=== PATIENT | male | born 1945 | race Caucasian/White ===

== ENCOUNTER 2016-03-02 15:32 | Emergency (ER) | payer BC ==
[~2016-03-02] VITALS: Ht 177.8 cm; Wt 84.5 kg
[~2016-03-02 15:32] MED LIST changes: -ACET1TAB84 PO; -ASPCH81X PO; -ATOR-24 PO; -CHOL1000 PO; -CMD1 PO; -CMD2 PO; -CRDCD240 PO; -DILT-113 PO; -DILT-115 PO; -FLM4 PO; -HYDR-5688 PO; -LISI-461 PO; -LNX125 PO; -MAGN400T6 PO; -METO100T14 PO; -MGNO400 PO; -NTRGSL/4 UT; -ONDA4TAB10 SL; -OXYB5TAB PO; -OXYC1TAB3 PO; -PHEN-876 PO; -RIVA3CAP4 PO; -SULF800T23 PO; -TAMS0.4C38 PO; -TEST5GEL TOP
[2016-03-02 15:34] VITALS: TEMP 36.4; Ht 177.8 cm; Wt 84.5 kg
--- NOTE | 2016-03-02 17:00 | DIAGNOSTIC IMAGING REPORT ---
CT HEAD WITHOUT CONTRAST (CT) CLINICAL HISTORY: Change in mental status. Possible acute hemorrhage. COMPARISON STUDY: 02/12/2014 TECHNIQUE: Axial CT of the brain is performed from the vertex to the skull base. IV contrast was not administered for this examination. CT DOSE: 1036.18 mGy.cm FINDINGS: No intra or extra-axial mass lesions are visualized. There is no CT evidence of acute cortical infarction. There is no evidence of midline shift. There is no acute hemorrhage. No calvarial fractures are visualized. There are patchy white matter hypodensities likely on a small vessel basis. There is an old right frontal infarct. There is persistent mild ventricular dilatation. There is no evidence of acute sinusitis IMPRESSION: 1. No acute intracranial findings 2. Old right frontal infarct and extensive white matter hypodensities 3. Mild ventricular dilatation Electronically signed by: Rayshawn Jones M.D. 03/02/2016 4:58 PM Dictated Date/Time: 03/02/2016 4:56 PM
--- NOTE | 2016-03-02 17:07 | DIAGNOSTIC IMAGING REPORT ---
CERVICAL SPINE CT CT DOSE: HISTORY: Neck pain. TECHNIQUE: Multiaxial CT images of the cervical spine were performed and reformatted in the sagittal and coronal plane without the use of contrast. COMPARISON: Cervical spine CT 07/08/2011. FINDINGS: No fractures. No subluxation. Prevertebral soft tissues and the C1-C2 interval are intact. No pneumothorax. Calcified focal mild disc space at C4-C5 and C5-C6. There is a 9 mm irregular groundglass nodule within the left lung apex. Central disc protrusion at C4-C5. IMPRESSION: 1. No fractures within the cervical spine. 2. There is a 9 mm irregular groundglass nodule within left lung apex. This is highly suspicious for a primary bronchogenic malignancy. Follow-up pulmonary consultation and/or nonemergent chest CT in one to 2 months is recommended for further evaluation. Electronically signed by: Terrence Huizar M.D. 03/02/2016 5:05 PM Dictated Date/Time: 03/02/2016 4:56 PM
--- NOTE | 2016-03-02 17:20 | DIAGNOSTIC IMAGING REPORT ---
LEFT ELBOW MIN 3 VIEWS ROUTINE CLINICAL HISTORY: Left elbow pain status post trauma COMPARISON: None. DISCUSSION: The fat pads are not displaced. There is olecranon spurring. No acute fractures are visualized. There are mild osteoarthritic changes. There is no evidence for soft tissue swelling. IMPRESSION: Degenerative changes in the olecranon spurring. No acute fractures identified. Electronically signed by: Rayshawn Jones M.D. 03/02/2016 5:18 PM Dictated Date/Time: 03/02/2016 5:17 PM
--- NOTE | 2016-03-02 17:44 | DIAGNOSTIC IMAGING REPORT ---
CHEST 2 VIEWS ROUTINE CLINICAL HISTORY: Trauma. Pain. COMPARISON STUDY: 05/24/2015 FINDINGS: The heart remains mildly enlarged. There is no focal pulmonary consolidation. There is no failure. There are no pleural effusions.[ Degenerative changes are present within the spine. IMPRESSION: No active disease in the chest. Electronically signed by: Rayshawn Jones M.D. 03/02/2016 5:42 PM Dictated Date/Time: 03/02/2016 5:42 PM
[2016-03-02 18:13] VITALS: BP 127/73; PULSE 80; O2SAT 97
--- NOTE | 2016-03-02 21:23 | EMERGENCY ROOM VISIT NOTE ---
History Report prepared by Arina: Pal Brooks Under the Supervision of: Dr. Aden Chin M.D. First contact with patient: 16:32 Chief Complaint: FALL Stated Complaint: FELL, HIT HEAD, ELBOW, AND NECK, ON COUMADIN History of Present Illness The patient is a 70 year old male who presents to the Emergency Room after a fall that occurred prior to arrival. The patient was sitting in a chair pushing it back to get up when the leg of the chair got caught in the rug. The chair fell backwards and the patient fell to the ground as he was seated in the chair. He hit the back of his head, neck, and left elbow when he landed on the ground. He complains of neck pain and some discomfort in his left elbow. The patient notes that he wanted to get evaluated in the ED since he is on Coumadin. He denies fever, headache, back pain or hip pain at this time. Source of History: patient Onset: lpta Position: other (global) Quality: other (fall) Timing: resolved Associated Symptoms: + neck pain, No fevers, No headache, No numbness, No weakness Note: Other associated symptoms: discomfort in left elbow Denies: hip pain Review of Systems See HPI for pertinent positives & negatives. A total of 10 systems reviewed and were otherwise negative. 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 (5) Hyperlipidemia (6) Hypertension Surgical Problems: (1) S/P PTCA (percutaneous transluminal coronary angioplasty) (2) Total knee replacement status Family History No pertinent family history Social History Smoking Status: Never Smoker Alcohol Use: none Drug Use: none Marital Status: Occupation Status: retired Current/Historical Medications Scheduled Aspirin (Aspirin Chewable), 81 MG PO QAM Atorvastatin (Lipitor), 40 MG PO HS Cholecalciferol (Vitamin D3), 1 TAB PO HS Digoxin (Lanoxin), 0.25 MG PO QAM Lisinopril (Zestril), 10 MG PO QAM Metoprolol Tartrate (Lopressor) (Lopressor), 100 MG PO BID Nitroglycerin (Nitrostat), 0.4 MG UT PRN Rivastigmine Tartrate (Exelon), 3 MG PO QAM Testosterone (Androgel Pump), 40.5 MG TOP DAILY Warfarin Sod (Coumadin), 1 MG PO M.W.F Warfarin Sod (Coumadin), 2 MG PO SUN,,URIEL,SAT Scheduled PRN Acetaminophen (Tylenol Arthritis Ext Rel), 2 TAB PO DAILY PRN for Pain Allergies Coded Allergies: Adhesives (Verified Allergy, Intermediate, BLISTERS, 03/02/16) Alcohol (Verified Allergy, Unknown, RUBBING ALCOHOL MADE SHORTNESS OF BREATH, 03/02/16) NO KNOWN DRUG ALLERGIES (Verified Allergy, Unknown, ., 01/07/16) Physical Exam Vital Signs Date Time Temp Pulse Resp B/P Pulse Ox O2 Delivery O2 Flow Rate FiO2 03/02/16 18:13 80 18 127/73 97 03/02/16 17:42 80 16 145/77 97 Room Air 03/02/16 15:34 36.4 78 17 138/82 95 Room Air Physical Exam Constitutional: Vital signs reviewed. Eyes: Pupils are equal round reactive to light. Conjunctiva are noninjected. ENT: Pharynx is clear without erythema or exudate. Mucous membranes are moist. Neck supple without meningeal signs. No midline tenderness to the cervical spine. Respiratory: Clear to auscultation bilaterally. Breath sounds are equal bilaterally. Cardiovascular: Irregularly irregular rhythm. No rubs or gallops. GI: Soft, nondistended and nontender. Bowel sounds are present. Musculoskeletal: No deformity or tenderness to the left elbow. No hip tenderness. No midline tenderness to the thoracic or lumbosacral spine. Integumentary: No cyanosis. Neurologic: The patient is awake and alert. Cranial nerves II-XII are intact. Motor is 5 out of 5 all extremities. Sensation is intact to light touch all extremities. Normal speech. No pronator drift. Psychiatric: Normal affect. Medical Decision & Procedures ER Provider Diagnostic Interpretation: Other radiology results as stated below per my review and the radiologist's interpretation: CT HEAD WITHOUT CONTRAST (CT) CLINICAL HISTORY: Change in mental status. Possible acute hemorrhage. COMPARISON STUDY: 02/12/2014 TECHNIQUE: Axial CT of the brain is performed from the vertex to the skull base. IV contrast was not administered for this examination. CT DOSE: 1036.18 mGy.cm FINDINGS: No intra or extra-axial mass lesions are visualized. There is no CT evidence of acute cortical infarction. There is no evidence of midline shift. There is no acute hemorrhage. No calvarial fractures are visualized. There are patchy white matter hypodensities likely on a small vessel basis. There is an old right frontal infarct. There is persistent mild ventricular dilatation. There is no evidence of acute sinusitis IMPRESSION: 1. No acute intracranial findings 2. Old right frontal infarct and extensive white matter hypodensities 3. Mild ventricular dilatation Electronically signed by: Rayshawn Jones M.D. 03/02/2016 4:58 PM Dictated Date/Time: 03/02/2016 4:56 PM LEFT ELBOW MIN 3 VIEWS ROUTINE CLINICAL HISTORY: Left elbow pain status post trauma COMPARISON: None. DISCUSSION: The fat pads are not displaced. There is olecranon spurring. No acute fractures are visualized. There are mild osteoarthritic changes. There is no evidence for soft tissue swelling. IMPRESSION: Degenerative changes in the olecranon spurring. No acute fractures identified. Electronically signed by: Rayshawn Jones M.D. 03/02/2016 5:18 PM Dictated Date/Time: 03/02/2016 5:[address] DOSE: HISTORY: Neck pain. TECHNIQUE: Multiaxial CT images of the cervical spine were performed and reformatted in the sagittal and coronal plane without the use of contrast. COMPARISON: Cervical spine CT 07/08/2011. FINDINGS: No fractures. No subluxation. Prevertebral soft tissues and the C1-C2 interval are intact. No pneumothorax. Calcified focal mild disc space at C4-C5 and C5-C6. There is a 9 mm irregular groundglass nodule within the left lung apex. Central disc protrusion at C4-C5. IMPRESSION: 1. No fractures within the cervical spine. 2. There is a 9 mm irregular groundglass nodule within left lung apex. This is highly suspicious for a primary bronchogenic malignancy. Follow-up pulmonary consultation and/or nonemergent chest CT in one to 2 months is recommended for further evaluation. Electronically signed by: Terrence Huizar M.D. 03/02/2016 5:05 PM Dictated Date/Time: 03/02/2016 4:56 PM CHEST 2 VIEWS ROUTINE CLINICAL HISTORY: Trauma. Pain. COMPARISON STUDY: 05/24/2015 FINDINGS: The heart remains mildly enlarged. There is no focal pulmonary consolidation. There is no failure. There are no pleural effusions.[ Degenerative changes are present within the spine. IMPRESSION: No active disease in the chest. Electronically signed by: Rayshawn Jones M.D. 03/02/2016 5:42 PM Dictated Date/Time: 03/02/2016 5:42 PM ED Course 1630: The patient was evaluated in room A9. A complete history and physical exam was performed. 1730: Upon reevaluation, the patient appeared to have improvement of his symptoms. I discussed tonight's findings with him including the pulmonary nodules and stressed the need for follow-up. He verbalized agreement of the treatment plan. The patient was discharged home. Medical Decision This is a 70-year-old male who presents with increasing injuries after a fall on Coumadin. Differential diagnosis includes intracranial hemorrhage, skull fracture, contusion, concussion, cervical fracture. I did perform a limited focused review of portions of the patient's old chart on the electronic medical record. The patient had an INR of 2 on February 08 2016. I did evaluate the patient as noted above. He is neurologically intact. He did have a head and neck injury after falling. He is on Coumadin for A. fib. I I did order and personally review the patient's elbow x-ray as described above. There is no evidence of fracture. I did order a CT of the head and cervical spine. I did review the images myself as well as the radiology report as described above. He has no evidence of acute intracranial hemorrhage or cervical fracture. He did have some incidental findings including a left pulmonary nodule concerning for malignancy. I did discuss the test results in detail with the patient and his . I did recommend further evaluation and possible biopsy of the nodule. He will follow up with his doctor regarding this. He was discharged with head injury precautions. Impression Primary Impression: Acute head injury Additional Impressions: Fall Left elbow contusion Pulmonary nodule Anticoagulated on warfarin Scribe Attestation The scribe's documentation has been prepared under my direct and personally reviewed by me in its entirety. I confirm that the note above accurately reflects all work, treatment, procedures, and medical decision making performed by me. Departure Information Dispostion Home / Self-Care (ERASED) Referrals Cassius Decker M.D. (PCP) Forms HOME CARE DOCUMENTATION FORM, IMPORTANT VISIT INFORMATION Patient Instructions My [facility] Additional Instructions You have been examined and treated today on an emergency basis only. This is not a substitute for, or an effort to provide, complete comprehensive medical care. It is impossible to recognize and treat all injuries or illnesses in a single emergency department visit. It is therefore important that you follow up closely with your physician. Call as soon as possible for an appointment. Talk to him about further workup of your pulmonary nodule found on your CT scan. You may require a biopsy. Return for worsening symptoms or if you develop headache, numbness or weakness in your extremities, confusion, vomiting , or any other concerning symptoms. Problem Qualifiers
[2016-05-25] MEDS ORDERED: ATOR-24 PO (00:05)
[2016-05-25] MEDS ORDERED: NTRGSL/4 UT (00:05)
[2016-05-25] MEDS ORDERED: CMD2 PO (00:06)
[2016-05-25] MEDS ORDERED: CMD1 PO (00:06)
[2016-05-25] MEDS ORDERED: METO100T14 PO (10:05)
[2016-05-25] MEDS ORDERED: ASPCH81X PO (10:05)
[2016-05-25] MEDS ORDERED: RIVA3CAP4 PO (10:05)
[2016-05-25] MEDS ORDERED: ACET1TAB84 PO (10:05)
[2016-05-25] MEDS ORDERED: LISI-461 PO (13:26)
[2016-05-25] MEDS ORDERED: TEST5GEL TOP (13:26)
[2016-05-25] MEDS ORDERED: CHOL1000 PO (17:08)
[2016-05-27] MEDS ORDERED: SULF800T23 PO (09:55)
[2016-07-26] MEDS ORDERED: ONDA4TAB10 SL (14:28)
[2016-07-26] MEDS ORDERED: OXYC1TAB3 PO (14:28)
[2016-07-26] MEDS ORDERED: TAMS0.4C38 PO (14:28)
[2016-11-09] MEDS ORDERED: MAGN400T6 PO (08:53)
[2016-11-09] MEDS ORDERED: LNX125 PO (08:53)
[2016-11-09] MEDS ORDERED: TAMS0.4C38 PO (08:53)
[2016-11-09] MEDS ORDERED: DILT-115 PO (08:53)
[2016-11-09] MEDS ORDERED: LISI-461 PO (08:53)
[2016-11-17] MEDS ORDERED: ENOX80IN SQ (08:02)
[2016-11-17] MEDS ORDERED: OXYB5TAB PO (08:02)
[2016-11-17] MEDS ORDERED: PHEN-876 PO (08:02)
[2016-11-17] MEDS ORDERED: DILT-113 PO (08:32)
[2016-11-17] MEDS ORDERED: HYDR-5688 PO (10:47)
== END 2016-03-02 18:14 | disposition home or self-care (01) ==
LOC: C.EDB 15:34 → C.EDA 18:14
DX: S09.8XXA Other specified injuries of head, initial encounter (principal); S50.02XA Contusion of left elbow, initial encounter; R91.1 Solitary pulmonary nodule; Z79.01 Long term (current) use of anticoagulants; I48.91 Unspecified atrial fibrillation; Z86.73 Personal history of transient ischemic attack (TIA), and cerebral infarction without residual deficits; E78.5 Hyperlipidemia, unspecified; I25.10 Atherosclerotic heart disease of native coronary artery without angina pectoris; I10 Essential (primary) hypertension; Z96.659 Presence of unspecified artificial knee joint; Z79.82 Long term (current) use of aspirin; W07.XXXA Fall from chair, initial encounter; Y93.89 Activity, other specified; Y92.89 Other specified places as the place of occurrence of the external cause; Y99.8 Other external cause status

== ENCOUNTER → 2016-03-02 | Outpatient (CLI) | payer BC ==
[~2016-03-02] MED LIST: ACET1TAB84 PO; ASPCH81X PO; ATOR-24 PO; CEPH500C2 PO; CHOL1000 PO; CMD1 PO; CMD2 PO; CRDCD240 PO; DIGO0.2518 PO; DILT-113 PO; DILT-115 PO; ENOX80IN SQ; FLM4 PO; HYDR-5688 PO; LISI-461 PO; LNX125 PO; MAGN400T6 PO; METO100T14 PO; MGNO400 PO; NTRGSL/4 UT; ONDA4TAB10 SL; OXYB5TAB PO; OXYC-57 PO; OXYC1TAB3 PO; PHEN-876 PO; RIVA3CAP4 PO; SULF800T23 PO; TAMS0.4C38 PO; TEST5GEL TOP
--- NOTE | 2016-03-08 14:11 | CODING QUERY MEDICAL NECESSITY ---
SUPPORTING DIAGNOSIS NEEDED A supporting diagnosis is required for the test/procedure performed on this patient in order for us to be reimbursed by the patient's insurance. Please provide a supporting diagnosis for the following test/procedure listed below next to the test name along with your signature. *If there is no additional diagnosis for this patient that would support the following test/procedure please document that below next to the test/procedure. Test(s)/Procedure(s) that require a supporting diagnosis: * DXA BONE DENSITY DIAGNOSIS: * DOS: 03/02/16 Provider Signature: Date: Thank you Becky Martinez Health Information Management Once completed, please kindly fax back to [phone] For questions please call [phone]
== END | disposition home or self-care (01) ==
LOC: C.MAMM 13:05
PROVIDERS: ATTEND Internal Medicine Geriatric Medicine
DX: E29.1 Testicular hypofunction (principal); S09.8XXA Other specified injuries of head, initial encounter; S50.02XA Contusion of left elbow, initial encounter; W07.XXXA Fall from chair, initial encounter; Y93.89 Activity, other specified; Y92.89 Other specified places as the place of occurrence of the external cause; Y99.8 Other external cause status; R91.1 Solitary pulmonary nodule; Z79.01 Long term (current) use of anticoagulants; I48.91 Unspecified atrial fibrillation; Z86.73 Personal history of transient ischemic attack (TIA), and cerebral infarction without residual deficits; E78.5 Hyperlipidemia, unspecified; I25.10 Atherosclerotic heart disease of native coronary artery without angina pectoris; I10 Essential (primary) hypertension; Z96.659 Presence of unspecified artificial knee joint; Z79.82 Long term (current) use of aspirin; E55.9 Vitamin D deficiency, unspecified

== ENCOUNTER → 2016-03-16 | Outpatient (CLI) | payer BC ==
[~2016-03-16] MED LIST changes: +ACET1TAB84 PO; +ASPCH81X PO; +ATOR-24 PO; -CEPH500C2 PO; +CHOL1000 PO; +CMD1 PO; +CMD2 PO; +CRDCD240 PO; +DILT-113 PO; +DILT-115 PO; +FLM4 PO; +HYDR-5688 PO; +LISI-461 PO; +LNX125 PO; +MAGN400T6 PO; +METO100T14 PO; +MGNO400 PO; +NTRGSL/4 UT; +ONDA4TAB10 SL; +OXYB5TAB PO; -OXYC-57 PO; +OXYC1TAB3 PO; +PHEN-876 PO; +RIVA3CAP4 PO; +SULF800T23 PO; +TAMS0.4C38 PO; +TEST5GEL TOP
[2016-03-16 17:16] LABS: BLOOD UREA NITROGEN 14 mg/dl (7-18); BUN/CREATININE RATIO 16.1 (10-20); CALCIUM 9.4 mg/dl (8.5-10.1); CARBON DIOXIDE 28 mmol/L (21-32); CHLORIDE 105 mmol/L (98-107); CREATININE 0.85 mg/dl (0.60-1.40); GLUCOSE 85 mg/dl (70-99); SODIUM 141 mmol/L (136-145)
== END | disposition home or self-care (01) ==
LOC: C.LABBC 13:09
PROVIDERS: ATTEND Internal Medicine Pulmonary Disease
DX: G47.33 Obstructive sleep apnea (adult) (pediatric) (principal)

== ENCOUNTER → 2016-03-21 | Outpatient (CLI) | payer BC ==
[~2016-03-21] MED LIST changes: +OPTIRAY 320 IV PRN
--- NOTE | 2016-03-21 13:32 | DIAGNOSTIC IMAGING REPORT ---
CHEST CT WITH CONTRAST CT DOSE: 694.83 mGy.cm HISTORY: Lung nodule. Abnormal CT exam. R91.1 Solitary pulmonary [id number] TECHNIQUE: Multiaxial CT images of the chest were performed following the intravenous administration of contrast. COMPARISON: CT cervical spine dated 03/02/2016 FINDINGS: There is a 7.5 x 7.0 mm slightly spiculated nodular density left pulmonary apex. This appears similar to the patient's prior CT study. Lungs otherwise are clear. There is no additional nodular pathology. There is no significant mediastinal or hilar adenopathy. There is calcification of the coronary arterial vasculature. There is a 1 cm subcarinal node of indeterminate to low significance. Limited evaluation the upper abdomen shows presence of several nonobstructing renal cortical calcifications. The adrenal glands are unremarkable. IMPRESSION: 1. Spiculated nodule left pulmonary apex measuring 7.5 x 7.0 mm. 2. This is similar compared to the prior CT study of the cervical spine. 3. 1 cm subcarinal node with no evidence for additional or significant nodular/elif pathology. 4. Neoplastic process must be considered. Electronically signed by: Gopi Woods M.D. 03/21/2016 1:31 PM Dictated Date/Time: 03/21/2016 1:25 PM
== END | disposition home or self-care (01) ==
LOC: C.CTS 12:57
PROVIDERS: ATTEND Family Medicine
DX: G47.33 Obstructive sleep apnea (adult) (pediatric) (principal); R91.1 Solitary pulmonary nodule

== ENCOUNTER → 2016-04-18 | Outpatient (CLI) | payer BC ==
[~2016-04-18] MED LIST changes: -OPTIRAY 320 IV PRN
== END | disposition home or self-care (01) ==
LOC: C.PATHSPEC 13:41
PROVIDERS: ATTEND Dermatology
DX: D23.5 Other benign neoplasm of skin of trunk (principal); L57.0 Actinic keratosis

== ENCOUNTER 2016-05-25 22:31 | Inpatient (IN) | payer BC, OTHER ==
[~2016-05-25] VITALS: Ht 180.3 cm; Wt 86.5 kg
[~2016-05-25 22:31] MED LIST changes: -CRDCD240 PO; -DILT-113 PO; -DILT-115 PO; -ENOX80IN SQ; -FLM4 PO; -HYDR-5688 PO; -LNX125 PO; -MAGN400T6 PO; -MGNO400 PO; -ONDA4TAB10 SL; -OXYB5TAB PO; -OXYC1TAB3 PO; -PHEN-876 PO; -SULF800T23 PO; -TAMS0.4C38 PO
[2016-05-25] MEDS ORDERED: SODIUM CHLORIDE 0.9% 500ML 500 ML IV STA (22:59)
[2016-05-25] MEDS ORDERED: METOPROLOL TARTRATE 1 MG/ML VIAL IV STA ×2 (22:59→23:32)
--- NOTE | 2016-05-25 23:05 | EMERGENCY ROOM VISIT NOTE ---
History Report prepared by Arina: Luis Marie Under the Supervision of: Dr. Kam Keita M.D. First contact with patient: 22:54 Chief Complaint: TACHYCARDIA Stated Complaint: WEAKNESS/TACHYCARDIA History of Present Illness The patient is a 70 year old male with a history of atrial fibrillation who presents to the Emergency Room with complaints of persistent palpitations that started this morning. The patient has also had intermittent chest pain throughout the day and he has been feeling weak. He felt weak at physical therapy today, and notes that his weakness is worse when he sits up. He has a history of atrial fibrillation for which he has been in the ED before and is on Coumadin. The patient notes that he has abdominal pain that is unchanged from baseline. He denies syncope or shortness of breath. He also denies any recent falls. The patient has been eating okay. His notes that he missed his Metoprolol tonight. Per nursing staff, the patient had a fever of 100.3 upon arrival to the ED. She also notes that he has scratches over his legs that he attributes to his cat. Source of History: patient, spouse/significant other, nursing staff Onset: this morning Position: other (heart) Quality: other (palpitations) Timing: other (persistent) Associated Symptoms: + chest pain, + weakness, No LOC, No SOB, No abdominal pain (baseline) Review of Systems See HPI for pertinent positives & negatives. A total of 10 systems reviewed and were otherwise negative. Past Medical & Surgical Medical Problems: (1) Atrial fibrillation (2) CAD (coronary artery disease) (3) Cellulitis of right lower extremity without foot (4) CVA (cerebral infarction) (5) DJD (degenerative joint disease) of knee (6) Hyperlipidemia (7) Hypertension Surgical Problems: (1) S/P PTCA (percutaneous transluminal coronary angioplasty) (2) Total knee replacement status Family History No pertinent family history Social History Smoking Status: Never Smoker Alcohol Use: none Drug Use: none Marital Status: Occupation Status: retired Current/Historical Medications Scheduled Aspirin (Aspirin Chewable), 81 MG PO QAM Atorvastatin (Lipitor), 40 MG PO HS Cholecalciferol (Vitamin D3), 1 TAB PO HS Lisinopril (Zestril), 10 MG PO QAM Metoprolol Tartrate (Lopressor) (Lopressor), 100 MG PO BID Nitroglycerin (Nitrostat), 0.4 MG UT PRN Rivastigmine Tartrate (Exelon), 3 MG PO QAM Testosterone (Androgel Pump), 40.5 MG TOP DAILY Warfarin Sod (Coumadin), 1 MG PO M.W.F Warfarin Sod (Coumadin), 2 MG PO SUN,TU,URIEL,SAT Scheduled PRN Acetaminophen (Tylenol Arthritis Ext Rel), 2 TAB PO DAILY PRN for Pain Allergies Coded Allergies: Adhesives (Verified Allergy, Intermediate, BLISTERS, 03/02/16) Alcohol (Verified Allergy, Unknown, RUBBING ALCOHOL MADE SHORTNESS OF BREATH, 03/02/16) NO KNOWN DRUG ALLERGIES (Verified Allergy, Unknown, ., 01/07/16) Physical Exam Vital Signs Date Time Temp Pulse Resp B/P Pulse Ox O2 Delivery O2 Flow Rate FiO2 05/26/16 00:14 135 140/104 05/25/16 23:47 137 146/98 05/25/16 23:45 135 20 146/98 98 Room Air 05/25/16 23:09 143 05/25/16 22:48 Room Air 05/25/16 22:45 37.8 143 20 163/105 95 Room Air 05/25/16 22:39 140 Physical Exam GENERAL: Patient is unwell appearing and in mild distress. HEENT: No acute trauma, normocephalic atraumatic, mucous membranes moist, no nasal congestion, no scleral icterus. NECK: No stridor, no adenopathy, no meningismus, trachea is midline. LUNGS: No dyspnea. Clear to auscultation and equal bilaterally. No wheeze, no rhonchi. HEART: Tachycardic and irregular rhythm. No murmurs, rubs, gallops appreciated. ABDOMEN: Soft, nontender, bowel sounds positive, no masses appreciated, no peritonitis. BACK: No midline tenderness, no CVA tenderness EXTREMITIES: Normal motion all extremities, no cyanosis. Erythema and swelling of the right leg with multiple scratch ribera, erythema extends from top of right foot to the bottom of the right knee, no calf tenderness, no evidence of compartment syndrome. NEUROLOGIC: Alert and oriented, no acute motor or sensory deficits, no focal weakness, cranial nerves grossly intact. SKIN: No rash, no jaundice, no diaphoresis. Medical Decision & Procedures ER Provider Diagnostic Interpretation: X ray results are stated below per my interpretation: Chest: 1 view: Poor inspiratory effort, no obvious infiltrate nor effusion when compared to previous CXR. Radiology results and stated below per my review and radiologist interpretation: CT Abdomen & Pelvis: Nonobstructing calculi in both kidneys. No hydronephrosis or hydroureter. No radiopaque ureteral stone identified. Nonspecific hypodensities in the left kidney. Most are too small to definively characterize. Remainder of examination shows no definite evidence for an acute inflammatory process. Radiologist: Shun Herrera MD. Laboratory Results 05/25/16 22:53 Red Blood Count 4.46, Mean Corpuscular Volume 91.9, Mean Corpuscular Hemoglobin 31.6, Mean Corpuscular Hemoglobin Concent 34.4, Mean Platelet Volume 10.5, Neutrophils (%) (Auto) 79.1, Lymphocytes (%) (Auto) 11.9, Monocytes (%) (Auto) 7.3, Eosinophils (%) (Auto) 1.3, Basophils (%) (Auto) 0.3, Neutrophils # (Auto) 5.32, Lymphocytes # (Auto) 0.80, Monocytes # (Auto) 0.49, Eosinophils # (Auto) 0.09, Basophils # (Auto) 0.02 05/25/16 22:53 Test 05/25/16 22:53 05/25/16 22:59 05/25/16 23:19 White Blood Count 6.73 K/uL (4.8-10.8) Red Blood Count 4.46 M/uL (4.7-6.1) Hemoglobin 14.1 g/dL (14.0-18.0) Hematocrit 41.0 % (42-52) Mean Corpuscular Volume 91.9 fL (80-100) Mean Corpuscular Hemoglobin 31.6 pg (25-34) Mean Corpuscular Hemoglobin Concent 34.4 g/dl (32-36) Platelet Count 128 K/uL (130-400) Mean Platelet Volume 10.5 fL (7.4-10.4) Neutrophils (%) (Auto) 79.1 % Lymphocytes (%) (Auto) 11.9 % Monocytes (%) (Auto) 7.3 % Eosinophils (%) (Auto) 1.3 % Basophils (%) (Auto) 0.3 % Neutrophils # (Auto) 5.32 K/uL (1.4-6.5) Lymphocytes # (Auto) 0.80 K/uL (1.2-3.4) Monocytes # (Auto) 0.49 K/uL (0.11-0.59) Eosinophils # (Auto) 0.09 K/uL (0-0.5) Basophils # (Auto) 0.02 K/uL (0-0.2) RDW Standard Deviation 63.1 fL (36.4-46.3) RDW Coefficient of Variation 18.4 % (11.5-14.5) Immature Granulocyte % (Auto) 0.1 % Immature Granulocyte # (Auto) 0.01 K/uL (0.00-0.02) Prothrombin Time 20.7 SECONDS (9.0-12.0) Prothromb Time International Ratio 1.9 (0.9-1.1) Anion Gap 7.0 mmol/L (3-11) Est Creatinine Clear Calc Drug Dose 76.6 ml/min Estimated GFR () 95.5 Estimated GFR (Non- 82.4 BUN/Creatinine Ratio 22.3 (10-20) Calcium Level 9.1 mg/dl (8.5-10.1) Magnesium Level 1.9 mg/dl (1.8-2.4) Total Bilirubin 0.9 mg/dl (0.2-1) Direct Bilirubin 0.2 mg/dl (0-0.2) Aspartate Amino Transf (AST/SGOT) 22 U/L (15-37) Alanine Aminotransferase (ALT/SGPT) 24 U/L (12-78) Alkaline Phosphatase 124 U/L (45-117) Troponin I < 0.015 ng/ml (0-0.045) C-Reactive Protein 0.40 mg/dl (0-0.29) Total Protein 7.9 gm/dl (6.4-8.2) Albumin 4.0 gm/dl (3.4-5.0) Urine Color YELLOW Urine Appearance CLEAR (CLEAR) Urine pH 6.5 (4.5-7.5) Urine Specific [place] 1.016 (1.000-1.030) Urine Protein NEG (NEG) Urine Glucose (UA) NEG (NEG) Urine Ketones NEG (NEG) Urine Occult Blood 2+ (NEG) Urine Nitrite NEG (NEG) Urine Bilirubin NEG (NEG) Urine Urobilinogen POS (NEG) Urine Leukocyte Esterase NEG (NEG) Urine WBC (Auto) 0 /hpf (0-5) Urine RBC (Auto) >30 /hpf (0-4) Urine Hyaline Casts (Auto) 0 /lpf (0-5) Urine Epithelial Cells (Auto) 5-10 /lpf (0-5) Urine Bacteria (Auto) NEG (NEG) Bedside Lactic Acid Venous 1.33 mmol/L (0.90-1.70) Laboratory results as reviewed by me. Medications Administered Medications (Trade) Dose Ordered Sig/Mariaa Route Start Time Stop Time Status Last Admin Dose Admin Metoprolol Tartrate 5 mg 5 mg NOW STAT IV 05/25/16 22:59 05/25/16 23:00 DC 05/25/16 23:09 5 MG Sodium Chloride (Nss 500ml) 500 ml @ 999 mls/hr Q31M STAT IV 05/25/16 22:59 05/25/16 23:29 DC 05/25/16 23:09 999 MLS/HR Metoprolol Tartrate (Lopressor Iv) 5 mg NOW STAT IV 05/25/16 23:32 05/25/16 23:33 DC 05/25/16 23:47 5 MG Acetaminophen 1000 mg 1,000 mg NOW STAT PO 05/25/16 23:32 05/25/16 23:33 DC 05/25/16 23:47 1,000 MG Ampicillin Sodium/ Sulbactam Sodium 3000 mg/Sodium Chloride 108 ml @ 200 mls/hr ONE ONCE IV 05/25/16 23:45 05/26/16 00:17 DC 05/26/16 00:03 200 MLS/HR Sodium Chloride (Nss 1000ml) 1,000 ml @ 999 mls/hr Q1H1M STAT IV 05/26/16 00:05 05/26/16 01:05 DC 05/26/16 00:14 999 MLS/HR Metoprolol Tartrate (Lopressor Iv) 5 mg NOW STAT IV 05/26/16 00:05 05/26/16 00:06 DC 05/26/16 00:14 5 MG Metoprolol Tartrate (Lopressor Tab) 100 mg NOW STAT PO 05/26/16 00:48 05/26/16 01:07 DC 05/26/16 02:26 100 MG ECG Indication: palpitations Rate (beats per minute): 127 Rhythm: atrial fibrillation (with RVR) Findings: nonspecific-ST abn, other (no STEMI) ED Course 2253: The patient was evaluated in room C9. A complete history and physical exam was performed. 2259: NSS 500 ml @ 999 mls/hr, Lopressor 5 mg IV. 2315: The patient's heart rate is down to 122 after 5 mg Lopressor. 2330: The patient's rate is back up to the 130s, but he is feeling a little better. 2332: Tylenol 1000 mg PO, Lopressor 5 mg IV. 2345: Ampicillin Sodium / Sulbactam Sodium 3000 mg / NSS 108 ml @ 200 mls/hr. 2355: Discussed the case with Dr. Montez [facility]. The patient will be evaluated. 0005: Lopressor 5 mg IV, NSS 1000 ml @ 999 mls/hr. Medical Decision Differential: NSR, SVT, PACs, PVCs, Cardiac Dysrhythmia, Endocrine Dysfunction, Eletrolyte/Metabolic Abnormality, Pulmonary Embolism, Infectious, GI, amongst other pathologies entertained. 70 yr old male arrives with complaint of not feeling well with heart palpitations. On arrival in Afib RVR. History of Afib and admits not Metoprolol this evening. On exam also noted to have cellulitis right anterior thigh from cat scratches recently. Tachycardia likely afib related and mildly exacerbated by low grad fever/infection. CRP only minimal elevated and wbc/ lactate looks good thus I do not feel he is overtly septic. However with minimal improvement in HR was given some more fluids along with further dosing lopressor (total 3 doses given). Empiric Unasyn given source of infection. Hematuria without specific abdo pain (notes chronic pain with eating) thus after discussion with hospitalist they requested I order CT Abdo/pelv for further evaluation. Patient already on coumadin thus hold any further anti- coagulation. Without hypotension nor lactic acidosis nor other over septic shock findings I do not feel that patient requires full 30ml/kg fluid resus at this time. Consults Time Called: 2349 Consulting Physician: Dr. Montez [facility]. Returned Call: [phone]: Discuss[facility] the [facility] The patient will be evaluated. Impression Primary Impression: Atrial fibrillation with RVR Additional Impressions: Cellulitis of right lower extremity Hematuria Critical Care I have personally spent greater than 30 minutes of critical care time in the direct management of this patient. This was a life/limb threatening event. This includes time spent evaluating patient, direct bedside care, chart review, placing orders, interpretation of diagnostic studies, discussion with consultants, patient, and family members, as well as other required patient management activities. This 30 minutes is in excess of all separately billable procedures. Scribe Attestation The scribe's documentation has been prepared under my direction and personally reviewed by me in its entirety. I confirm that the note above accurately reflects all work, treatment, procedures, and medical decision making performed by me. Departure Information Dispostion Being Evaluated By Hospitalist Referrals Cassius Decker M.D. (PCP) Patient Instructions My [facility] Problem Qualifiers
[2016-05-25 23:12] LABS: BASO % 0.3 %; BASO ABS # 0.02 K/uL (0-0.2); COMPLETE YES; EOS % 1.3 %; IG% 0.1 %; LYMPH % 11.9 %; MEAN CELL VOLUME 91.9 fL (80-100); MEAN CORPUSCULAR HEMOGLOBIN 31.6 pg (25-34); MEAN CORPUSCULAR HGB CONC 34.4 g/dl (32-36); MEAN PLATELET VOLUME 10.5 fL (7.4-10.4); MONO % 7.3 %; NEUT % 79.1 %; PLATELET COUNT 128 K/uL (130-400); RED BLOOD COUNT 4.46 M/uL (4.7-6.1); WHITE BLOOD COUNT 6.73 K/uL (4.8-10.8)
[2016-05-25 23:25] LABS: URINE APPEARANCE CLEAR (CLEAR); URINE BILIRUBIN NEG (NEG); URINE COLOR YELLOW; URINE NITRITE NEG (NEG); URINE PH 6.5 (4.5-7.5); URINE SPECIFIC GRAVITY 1.016 (1.000-1.030); UROBILINOGEN POS (NEG); ZZUR CULT IF INDIC CLEAN CATCH NO
[2016-05-25 23:28] LABS: INR 1.9 (0.9-1.1); PROTHROMBIN TIME (PATIENT) 20.7 SECONDS (9.0-12.0)
[2016-05-25 23:30] LABS: MANUAL MICROSCOPIC REQUIRED? NO; REVIEW REQ? NO
[2016-05-25] MEDS ORDERED: ACETAMINOPHEN 500 MG TAB PO STA (23:32)
[2016-05-25 23:36] LABS: ALT/SGPT 24 U/L (12-78); BLOOD UREA NITROGEN 21 mg/dl (7-18); BUN/CREATININE RATIO 22.3 (10-20); CALCIUM 9.1 mg/dl (8.5-10.1); CARBON DIOXIDE 27 mmol/L (21-32); CHLORIDE 107 mmol/L (98-107); CREATININE 0.94 mg/dl (0.60-1.40); GLUCOSE 87 mg/dl (70-99); MAGNESIUM 1.9 mg/dl (1.8-2.4); POTASSIUM 4.3 mmol/L (3.5-5.1); SODIUM 141 mmol/L (136-145)
[2016-05-25 23:39] LABS: ALKALINE PHOSPHATASE 124 U/L (45-117); AST/SGOT 22 U/L (15-37)
[2016-05-25] MEDS ORDERED: AMPICILLIN/SULBACTAM SOD INJ 3,000 MG in SODIUM CHLORIDE 0.9% 100ML 100 ML IV ONE (23:45)
[2016-05-26] MEDS ORDERED: METOPROLOL TARTRATE 1 MG/ML VIAL IV STA (00:05)
[2016-05-26] MEDS ORDERED: SODIUM CHLORIDE 0.9% 1000ML 1,000 ML IV STA (00:05)
[2016-05-26] MEDS ORDERED: NITROGLYCERIN 0.4 MG SL PER TAB CHARGE UT SCH (00:15)
[2016-05-26] MEDS ORDERED: OPTIRAY 320 IV PRN (00:30)
[2016-05-26] MEDS ORDERED: VANCOMYCIN INJ 1,000 MG in SODIUM CHLORIDE 0.9% 250ML 250 ML IV STA (00:48)
[2016-05-26] MEDS ORDERED: METOPROLOL TARTRATE 50 MG TAB PO STA (00:48)
[2016-05-26] MEDS ORDERED: VANCOMYCIN INJ 2,150 MG in SODIUM CHLORIDE 0.9% 500ML 500 ML IV STA (01:08)
[2016-05-26] MEDS ORDERED: PIPERACILL/TAZOBAC CONSULT ACTIVE PRN ×3 (01:15→02:00)
[2016-05-26] MEDS ORDERED: PIPERACILL/TAZOBAC IV 3.375 GM in DEXTROSE 5% 100ML IV ONE (02:00)
[2016-05-26] MEDS: NSS + 20MEQ KCL 1000ML 1,000 ML IV SCH ×3 (02:26→20:26)
[2016-05-26 02:55] VITALS: BP 124/100; PULSE 147; TEMP 37.1; O2SAT 93; Ht 180.3 cm; Wt 86.5 kg
[2016-05-26 04:00] VITALS: BP 120/82; PULSE 103; TEMP 36.8; O2SAT 96
--- NOTE | 2016-05-26 05:08 | History and Physical ---
History & Physical Date & Time of Service: May 26, 2016 at 04:50 Chief Complaint: Atrial Fibrillation With Rvr, Cellulitis Of Right Primary Care Physician: Cassius Decker M.D. History of Present Illness Source: patient, spouse The patient is a 70-year-old male with a past history of atrial fibrillation who presents to the emergency department with complaint palpitations and weakness that began in the morning and intermittent chest pain throughout the day. His reports that he missed his metoprolol dose from 90. Nursing reports that it from 2.3 upon arrival to the ED tonight. He does have scratches over his right leg due to his 5 cats at home. He has been taking his Coumadin as directed for atrial fibrillation. Past Medical/Surgical History Medical Problems: (1) Atrial fibrillation Status: Chronic (2) CAD (coronary artery disease) Status: Chronic (3) CVA (cerebral infarction) Status: Chronic (4) DJD (degenerative joint disease) of knee Status: Resolved (5) Hyperlipidemia Status: Chronic (6) Hypertension Status: Chronic Surgical Problems: (1) S/P PTCA (percutaneous transluminal coronary angioplasty) Status: Chronic (2) Total knee replacement status Status: Chronic Family History No pertinent family history Social History Smoking Status: Former Smoker Smokeless Tobacco Use: No Alcohol Use: none Drug Use: none Marital Status: Housing status: lives with family Occupational Status: retired Immunizations History of Influenza Vaccine: Yes Influenza Vaccine Date: Jan 09, 2006 History of Tetanus Vaccine?: Yes History of Pneumococcal: Yes History of Hepatitis B Vaccine: No Multi-Drug Resistant Organisms History of MDRO: No Allergies Coded Allergies: Adhesives (Verified Allergy, Intermediate, BLISTERS, 03/02/16) Alcohol (Verified Allergy, Unknown, RUBBING ALCOHOL MADE SHORTNESS OF BREATH, 03/02/16) NO KNOWN DRUG ALLERGIES (Verified Allergy, Unknown, ., 01/07/16) Home Medications Scheduled Aspirin (Aspirin Chewable), 81 MG PO QAM Atorvastatin (Lipitor), 40 MG PO HS Cholecalciferol (Vitamin D3), 1 TAB PO HS Lisinopril (Zestril), 10 MG PO QAM Metoprolol Tartrate (Lopressor) (Lopressor), 100 MG PO BID Nitroglycerin (Nitrostat), 0.4 MG UT PRN Rivastigmine Tartrate (Exelon), 3 MG PO QAM Testosterone (Androgel Pump), 40.5 MG TOP DAILY Warfarin Sod (Coumadin), 1 MG PO M.W.F Warfarin Sod (Coumadin), 2 MG PO SUN,,SUN,SUN Scheduled PRN Acetaminophen (Tylenol Arthritis Ext Rel), 2 TAB PO DAILY PRN for Pain Review of Systems The patient denies cough, lower extremity swelling, vision change, hearing change, sore throat, fevers, chills, sweats, weight change, fatigue, nausea, vomiting, pelvic pain, blood in urine or stool, dysuria, urinary frequency or urgency, headache, memory loss, abnormal bruising or bleeding, imbalance, focal weakness, numbness or tingling in arms or legs, arthralgias or myalgias, back or neck pain, night sweats, or allergy symptoms. The review of systems is otherwise negative other than for that already noted above, and at least 10 systems have been reviewed. Physical Exam Vital Signs Date Time Temp Pulse Resp B/P Pulse Ox O2 Delivery O2 Flow Rate FiO2 05/26/16 04:00 36.8 103 18 120/82 96 Nasal Cannula 2.0 05/26/16 04:00 96 Nasal Cannula 2.0 05/26/16 02:55 37.1 147 24 124/100 93 Room Air 05/26/16 01:52 135 20 96 05/26/16 00:14 135 140/104 05/25/16 23:47 137 146/98 05/25/16 23:45 135 20 146/98 98 Room Air 05/25/16 23:09 143 05/25/16 22:48 Room Air 05/25/16 22:45 37.8 143 20 163/105 95 Room Air 05/25/16 22:39 140 The patient is awake, well-developed and adequately nourished, alert and oriented 3, normocephalic and atraumatic, lying in bed and in no acute distress. HEENT--PERRL, EOMI, mucous membranes and oropharynx dry. Neck--supple, no JVD or bruits, thyroid normal, trachea midline, no adenopathy. Heart--tachycardic, irregularly irregular, no murmurs, rubs or gallops. Lungs--clear bilaterally, no respiratory distress, no accessory muscle use. Abdomen--normal bowel sounds and soft, nontender and nondistended, no hernias or masses, no organomegaly. Extremities--left lower extremity no cyanosis, clubbing, with trace pretibial pitting edema. There are good distal pulses b/l. Right lower extremity 1+ pitting edema, mild erythema with multiple vertically oriented scratches on the tibial area. Dermatologic--normal skin turgor, warm and dry, no abnormal lymph nodes. Neurologic--cranial nerves II through XII grossly intact, motor and sensory examination normal. Rheumatologic--deferred. Psychiatric--normal affect. Diagnostics Laboratory Results Results Past 24 Hours Test 05/25/16 22:53 05/25/16 22:59 05/25/16 23:19 05/26/16 00:51 Range/Units White Blood Count 6.73 4.8-10.8 K/uL Red Blood Count 4.46 4.7-6.1 M/uL Hemoglobin 14.1 14.0-18.0 g/dL Hematocrit 41.0 42-52 % Mean Corpuscular Volume 91.9 80-100 fL Mean Corpuscular Hemoglobin 31.6 25-34 pg Mean Corpuscular Hemoglobin Concent 34.4 32-36 g/dl Platelet Count 128 130-400 K/uL Mean Platelet Volume 10.5 7.4-10.4 fL Neutrophils (%) (Auto) 79.1 % Lymphocytes (%) (Auto) 11.9 % Monocytes (%) (Auto) 7.3 % Eosinophils (%) (Auto) 1.3 % Basophils (%) (Auto) 0.3 % Neutrophils # (Auto) 5.32 1.4-6.5 K/uL Lymphocytes # (Auto) 0.80 1.2-3.4 K/uL Monocytes # (Auto) 0.49 0.11-0.59 K/uL Eosinophils # (Auto) 0.09 0-0.5 K/uL Basophils # (Auto) 0.02 0-0.2 K/uL RDW Standard Deviation 63.1 36.4-46.3 fL RDW Coefficient of Variation 18.4 11.5-14.5 % Immature Granulocyte % (Auto) 0.1 % Immature Granulocyte # (Auto) 0.01 0.00-0.02 K/uL Prothrombin Time 20.7 9.0-12.0 SECONDS Prothromb Time International Ratio 1.9 0.9-1.1 Sodium Level 141 136-145 mmol/L Potassium Level 4.3 3.5-5.1 mmol/L Chloride Level 107 98-107 mmol/L Carbon Dioxide Level 27 21-32 mmol/L Anion Gap 7.0 3-11 mmol/L Blood Urea Nitrogen 21 7-18 mg/dl Creatinine 0.94 0.60-1.40 mg/dl Est Creatinine Clear Calc Drug Dose 76.6 ml/min Estimated GFR () 95.5 Estimated GFR (Non- 82.4 BUN/Creatinine Ratio 22.3 10-20 Random Glucose 87 70-99 mg/dl Calcium Level 9.1 8.5-10.1 mg/dl Magnesium Level 1.9 1.8-2.4 mg/dl Total Bilirubin 0.9 0.2-1 mg/dl Direct Bilirubin 0.2 0-0.2 mg/dl Aspartate Amino Transf (AST/SGOT) 22 15-37 U/L Alanine Aminotransferase (ALT/SGPT) 24 12-78 U/L Alkaline Phosphatase 124 45-117 U/L Troponin I < 0.015 0-0.045 ng/ml C-Reactive Protein 0.40 0-0.29 mg/dl Total Protein 7.9 6.4-8.2 gm/dl Albumin 4.0 3.4-5.0 gm/dl Urine Color YELLOW Urine Appearance CLEAR CLEAR Urine pH 6.5 4.5-7.5 Urine Specific [place] 1.016 1.000-1.030 Urine Protein NEG NEG Urine Glucose (UA) NEG NEG Urine Ketones NEG NEG Urine Occult Blood 2+ NEG Urine Nitrite NEG NEG Urine Bilirubin NEG NEG Urine Urobilinogen POS NEG Urine Leukocyte Esterase NEG NEG Urine WBC (Auto) 0 0-5 /hpf Urine RBC (Auto) >30 0-4 /hpf Urine Hyaline Casts (Auto) 0 0-5 /lpf Urine Epithelial Cells (Auto) 5-10 0-5 /lpf Urine Bacteria (Auto) NEG NEG Bedside Lactic Acid Venous 1.33 0.90-1.70 mmol/L Creatine Kinase MB Ratio 0-3.0 Microbiology Results 05/25/16 Blood Culture, Received Pending 05/25/16 Blood Culture, Received Pending EKG EKG shows atrial fibrillation at 127 bpm, mild ST-T changes in lateral leads. Impression Assessment and Plan CAD/hypertension/atrial fibrillation with RVR--the patient be admitted to the telemetry unit for serial cardiac enzymes, cardiac rhythm monitoring and a 2-D echocardiogram with Dopplers. He has received 3 doses of IV Lopressor 5 mg without much change in his heart rate or blood pressure in the ED tonight. We' ll give the metoprolol 100 mg oral dose that he missed tonight. Hydrate with IV fluids, and treat the underlying right lower cellulitis which may be contributing to his hypermetabolic rate. We'll increase his metoprolol tartrate from 100 mg by mouth twice a day 20 mg by mouth twice a day, and hold lisinopril 10 mg by mouth every morning. Continue aspirin 81 mg by mouth every morning and warfarin. INR is presently 1.9. Right lower extremity cellulitis--placed on vancomycin IV per renal dosing, and Zosyn 3.375 mg IV every 8 hours. Hematuria--history of kidney stones. Order a CT of abdomen and pelvis for further assessment. Hypercholesterolemia--continue atorvastatin 40 mg by mouth at bedtime. Dementia--continue Exelon 3 mg by mouth every morning. Testosterone deficiency--continue AndroGel pump 40.5 mg topically daily. Level of Care Telemetry Advanced Directives Existing Advance Directive: No Existing Living Will: Yes Existing Power of Shift Superintendent: Yes Resuscitation Status FULL RESUSCITATION VTE Prophylaxis VTE Risk Assessment Done? Y/N: Yes Risk Level: Moderate Given or contraindicated: Warfarin (Coumadin)
[2016-05-26] MEDS: PIPERACILL/TAZOBAC IV 3.375 GM in DEXTROSE 5% 100ML IV SCH ×3 (05:51→20:26)
[2016-05-26] MEDS ORDERED: PIPERACILL/TAZOBAC IV 3.375 GM in DEXTROSE 5% 100ML 100 ML IV SCH (06:00)
--- NOTE | 2016-05-26 06:42 | DIAGNOSTIC IMAGING REPORT ---
CHEST ONE VIEW PORTABLE CLINICAL HISTORY: Fever. COMPARISON STUDY: Chest radiograph March 02, [address] March 21, 2016 FINDINGS: Lung volumes are normal. There is no pneumothorax or pleural effusion. Moderate cardiomegaly is unchanged. There is pulmonary vascular congestion without overt pulmonary edema. There is no consolidation to suggest pneumonia. IMPRESSION: Moderate cardiomegaly with pulmonary vascular congestion. No overt pulmonary edema. Electronically signed by: Tahir Sullivan M.D. 05/26/2016 6:40 AM Dictated Date/Time: 05/26/2016 6:39 AM
--- NOTE | 2016-05-26 06:49 | DIAGNOSTIC IMAGING REPORT ---
ABDOMEN AND PELVIS CT WITH IV CONTRAST CT DOSE: 631.23 mGy.cm HISTORY: Flank pain hematuria TECHNIQUE: Multiaxial CT images of the abdomen and pelvis were performed following the use of intravenous contrast. COMPARISON STUDY: 03/19/2013 FINDINGS: Lung bases are clear. Liver spleen and pancreas are unremarkable. Bilateral nonobstructing renal calcifications are present. There is no evidence for hydronephrosis or hydroureter. Bowel pattern is nonobstructive throughout. Appendix is unremarkable. IMPRESSION: 1. Nonobstructing renal calcifications bilaterally. 2. Otherwise negative abdomen and pelvis Electronically signed by: Gopi Woods M.D. 05/26/2016 6:47 AM Dictated Date/Time: 05/26/2016 6:45 AM
[2016-05-26 08:00] VITALS: BP 146/78; PULSE 103; O2SAT 99
[2016-05-26] MEDS: ASPIRIN 81 MG ECTAB PO SCH (08:13)
[2016-05-26] MEDS: RIVASTIGMINE TARTRATE (EXELON) 1.5 MG CAP PO SCH (08:13)
[2016-05-26] MEDS: METOPROLOL TARTRATE 100 MG TAB PO SCH ×2 (08:14→20:27)
[2016-05-26 09:33] LABS: CKMB/CK RATIO 1.8 (0-3.0)
[2016-05-26] MEDS ORDERED: VANCOMYCIN CONSULT ACTIVE PRN (11:00)
--- NOTE | 2016-05-26 12:00 | Pharmacy Progress Note ---
Pharmacy Antibiotic Consult Date of Service: May 26, 2016. Pharmacy Dosing Scope Pharmacy is consulted to initiate Vancomycin and Zosyn IV dosing therapy, order appropriate labs and adjust drug dose/frequency. Subjective The patient is a 70 year old male admitted on May 26, 2016 at 00:48 with Afib and Cellulitis of (R) lower leg (preceded by cat scratches) Objective Height (Feet): 5 Height (Inches): 11.00 Weight (Kilograms): 86.800 Lab Results (24hrs): Laboratory Tests Test 05/25/16 22:53 BUN/Creatinine Ratio 22.3 Blood Urea Nitrogen 21 mg/dl Creatinine 0.94 mg/dl White Blood Count 6.73 K/uL Red Blood Count 4.46 M/uL Hemoglobin 14.1 g/dL Hematocrit 41.0 % Mean Corpuscular Volume 91.9 fL Mean Corpuscular Hemoglobin 31.6 pg Mean Corpuscular Hemoglobin Concent 34.4 g/dl Platelet Count 128 K/uL Mean Platelet Volume 10.5 fL Neutrophils (%) (Auto) 79.1 % Lymphocytes (%) (Auto) 11.9 % Monocytes (%) (Auto) 7.3 % Eosinophils (%) (Auto) 1.3 % Basophils (%) (Auto) 0.3 % Neutrophils # (Auto) 5.32 K/uL Lymphocytes # (Auto) 0.80 K/uL Monocytes # (Auto) 0.49 K/uL Eosinophils # (Auto) 0.09 K/uL Basophils # (Auto) 0.02 K/uL Micro Results: Item Value Date Time MRSA DNA Surveillance Screen - Final Complete 05/26/16 0000 Nasal Specimen Negative for MRSA by DNA Probe Blood Culture Received 05/25/16 2314 Blood Pending Blood Culture Received 05/25/16 2253 Blood Pending Recent Pertinent Medications Item Value Date Time Piperacillin Sod/ 115 ml @ 28.75 mls/hr 05/26/16 0600 Tazobactam Sod Q8H/IV 05/26/16 0551 3.375 gm/Dextrose Assessment & Plan Loading dose: Vancomycin 2150mg (25mg/kg) IV X 1 dose then: Vancomycin 1300mg (~ 15mg/kg) IV every 12 hours. I estimated his half life at around 10 hours. I will check a trough level prior to 0400 dose on 05/28/16. Goal trough level estimate: between 15-20 mcg/mL. Pharmacy will continue to follow and will adjust dose/frequency as necessary. Thank you
[2016-05-26 16:00] VITALS: PULSE 90; O2SAT 97
[2016-05-26] MEDS ORDERED: WARFARIN SOD 1 MG TAB PO SCH (16:00)
[2016-05-26] MEDS: VANCOMYCIN INJ 1,300 MG in SODIUM CHLORIDE 0.9% 250ML 250 ML IV SCH (16:23)
[2016-05-26 17:42] LABS: CKMB/CK RATIO 1.7 (0-3.0)
[2016-05-26 17:55] VITALS: BP 114/65; PULSE 91; TEMP 37; O2SAT 91
[2016-05-26 19:04] VITALS: BP 147/95; PULSE 104; TEMP 36.6; O2SAT 97
[2016-05-26] MEDS ORDERED: CHOLECALCIFEROL 1000 INTER.UNIT TAB PO SCH (21:00)
[2016-05-26] MEDS ORDERED: ATORVASTATIN 20 MG TAB PO SCH (21:00)
[2016-05-27] VITALS: BP 140/101; PULSE 98; TEMP 36.8; O2SAT 97
[2016-05-27 04:00] VITALS: BP 147/97; PULSE 90; TEMP 36.8; O2SAT 97
[2016-05-27] MEDS: VANCOMYCIN INJ 1,300 MG in SODIUM CHLORIDE 0.9% 250ML 250 ML IV SCH (04:20)
[2016-05-27] MEDS: PIPERACILL/TAZOBAC IV 3.375 GM in DEXTROSE 5% 100ML IV SCH (06:35)
[2016-05-27 07:04] LABS: CREATININE 0.87 mg/dl (0.60-1.40)
[2016-05-27 08:38] VITALS: BP 140/95; PULSE 61; TEMP 36.3; O2SAT 92
[2016-05-27] MEDS: RIVASTIGMINE TARTRATE (EXELON) 1.5 MG CAP PO SCH (08:40)
[2016-05-27] MEDS: ASPIRIN 81 MG ECTAB PO SCH (08:40)
[2016-05-27] MEDS: METOPROLOL TARTRATE 100 MG TAB PO SCH (08:42)
[2016-05-27] MEDS ORDERED: MAGNESIUM OXIDE 400 MG TAB PO SCH (09:00)
[2016-05-27] MEDS ORDERED: SULF800T23 PO (09:55)
--- NOTE | 2016-05-27 09:56 | Discharge Instructions ---
Discharge Instructions Date of Service May 27, 2016. Admission Reason for Admission: Atrial Fibrillation With Rvr, Cellulitis Of Right Discharge Discharge Diagnosis / Problem: Cellulitis, sepsis Discharge Goals Goal(s): Decrease discomfort, Improve function, Increase independence, Improve disease control, Diagnostic testing, Therapeutic intervention Activity Recommendations Activity Limitations: resume your previous activity Shower/Bathe: no limitations . Instructions / Follow-Up Instructions / Follow-Up Patient to be discharged home Please fill prescription for antibiotic bactrim to take twice a day for skin infection (cellulitis) If worsening pain, fevers or redness please report to ER Current Hospital Diet Patient's current hospital diet: AHA Diet (Heart Healthy) Discharge Diet Recommended Diet: AHA Diet (Heart Healthy) Pending Studies Studies pending at discharge: no Medical Emergencies . Who to Call and When: Medical Emergencies: If at any time you feel your situation is an emergency, please call 911 immediately. . Non-Emergent Contact Non-Emergency issues call your: Primary Care Provider Call Non-Emergent contact if: you have a fever, your pain is worsening . . "Provider Documentation" section prepared by Gordon Villar. VTE Core Measure Inpt VTE Proph given/why not?: Warfarin (Coumadin)
--- NOTE | 2016-05-27 10:18 | Discharge Summary ---
Discharge Summary Date of Service May 27, 2016. Discharge Summary Admission Date: May 26, 2016 at 00:48 Discharge Date: May 27, 2016 Discharge Disposition: Home Principal Diagnosis: Cellulitis, sepsis Problems/Secondary Diagnoses: (1) CVA (cerebral infarction) Status: Chronic (2) S/P PTCA (percutaneous transluminal coronary angioplasty) Status: Chronic (3) Total knee replacement status Status: Chronic Immunizations: Have You Had Influenza Vaccine: Yes Influenza Vaccine Date: Jan 09, 2006 History of Tetanus Vaccine?: Yes History of Pneumococcal: Yes History of Hepatitis B Vaccine: No Medication Reconciliation New Medications: Sulfa/Trimethoprim (Bactrim Ds 800MG/160MG) Tab 1 TAB PO BID for 5 Days, #10 TAB Continued Medications: Acetaminophen (Tylenol Arthritis Ext Rel) 650 Mg Cplt 2 TAB PO DAILY PRN for Pain Aspirin (Aspirin Chewable) 81 Mg Chew 81 MG PO QAM Atorvastatin (Lipitor) 40 Mg Tab 40 MG PO HS, TAB Cholecalciferol (Vitamin D3) 1,000 Unit Tab 1 TAB PO HS, TAB 3 Refills Lisinopril (Zestril) 10 Mg Tab 10 MG PO QAM Metoprolol Tartrate (Lopressor) (Lopressor) 100 Mg Tab 100 MG PO BID, TAB Nitroglycerin (Nitrostat) 0.4 Mg Tab 0.4 MG UT PRN, BTL Rivastigmine Tartrate (Exelon) 3 Mg Cap 3 MG PO QAM, CAP Testosterone (Androgel Pump) 1.62 % Gel 40.5 MG TOP DAILY Warfarin Sod (Coumadin) 1 Mg Tab 1 MG PO M.W.F Warfarin Sod (Coumadin) 2 Mg Tab 2 MG PO SUN,TU,URIEL,SAT Discharge Exam Review of Systems: Constitutional: No chills, No fever Respiratory: No cough, No dyspnea on exertion, No shortness of breath, No sputum Cardiovascular: No chest pain, No orthopnea Abdomen: No diarrhea, No nausea, No pain, No vomiting Musculoskeletal: No joint pain, No muscle pain Genitourinary - Male: No dysuria, No hematuria Physical Exam: General Appearance: WD/WN, no apparent distress Neck: supple, no adenopathy Respiratory/Chest: lungs clear, normal breath sounds Cardiovascular: no edema, no gallop, + irregularly irregular Abdomen / GI: non tender, soft Neurologic/Psychiatric: alert, oriented x 3 Hospital Course CAD/hypertension/atrial fibrillation with RVR--the patient be admitted to the telemetry unit for serial cardiac enzymes which were unremarkable. RVR likely from sepsis. Cont metoprolol and hydrate with IV fluids, and treat the underlying right lower cellulitis which may be contributing to his hypermetabolic rate. Coumadin for AC, INR therapeutic Right lower extremity cellulitis--placed on vancomycin IV per renal dosing, and Zosyn 3.375 mg IV every 8 hours. Transitioned to 5 day course of bactrim on discharge Hematuria--history of kidney stones. Order a CT of abdomen and pelvis for further assessment. Hypercholesterolemia--continue atorvastatin 40 mg by mouth at bedtime. Dementia--continue Exelon 3 mg by mouth every morning. Testosterone deficiency--continue AndroGel pump 40.5 mg topically daily. Total Time Spent: Greater than 30 minutes This includes examination of the patient, discharge planning, medication reconciliation, and communication with other providers. Discharge Instructions Please refer to the electronic Patient Visit Report (Discharge Instructions) for additional information. Additional Copies To Cassius Decker M.D.
[2016-05-27] MEDS ORDERED: SULFAMETHOXAZOLE/TRIMETHOPRIM DS 800/160MG TAB PO SCH (10:30)
[2016-05-27 11:01] VITALS: BP 127/66; PULSE 76; TEMP 36.6; O2SAT 94
[2016-05-27 11:11] LABS: INR 1.7 (0.9-1.1); PROTHROMBIN TIME (PATIENT) 18.1 SECONDS (9.0-12.0)
[2016-05-27 11:37] VITALS: BP 127/66; PULSE 76; TEMP 36.6; O2SAT 94
[2016-05-27] MEDS ORDERED: WARFARIN SOD 2 MG TAB PO SCH (16:00)
[2016-05-28] MEDS ORDERED: VANCOMYCIN TROUGH SCH (03:30)
[2016-07-26] MEDS ORDERED: OXYC1TAB3 PO (14:28)
[2016-07-26] MEDS ORDERED: TAMS0.4C38 PO (14:28)
[2016-07-26] MEDS ORDERED: ONDA4TAB10 SL (14:28)
[2016-11-09] MEDS ORDERED: LNX125 PO (08:53)
[2016-11-09] MEDS ORDERED: MAGN400T6 PO (08:53)
[2016-11-09] MEDS ORDERED: TAMS0.4C38 PO (08:53)
[2016-11-09] MEDS ORDERED: LISI-461 PO (08:53)
[2016-11-09] MEDS ORDERED: DILT-115 PO (08:53)
[2016-11-17] MEDS ORDERED: OXYB5TAB PO (08:02)
[2016-11-17] MEDS ORDERED: PHEN-876 PO (08:02)
[2016-11-17] MEDS ORDERED: ENOX80IN SQ (08:02)
[2016-11-17] MEDS ORDERED: DILT-113 PO (08:32)
[2016-11-17] MEDS ORDERED: HYDR-5688 PO (10:47)
== END 2016-05-27 16:17 | disposition home or self-care (01) | DRG 603 ==
LOC: ENRESERVDT → ENRESERVTM → EDBD 22:31 → C.EDC 22:34 → C.MSICU 05-26 00:48 → C.2E 05-26 18:20
PROVIDERS: ADMIT Hospitalist; ATTEND Hospitalist
DX: L03.115 Cellulitis of right lower limb (principal); I48.91 Unspecified atrial fibrillation; I25.10 Atherosclerotic heart disease of native coronary artery without angina pectoris; I10 Essential (primary) hypertension; Z96.653 Presence of artificial knee joint, bilateral; R31.9 Hematuria, unspecified; F03.90 Unspecified dementia, unspecified severity, without behavioral disturbance, psychotic disturbance, mood disturbance, and anxiety; E29.1 Testicular hypofunction; Z86.73 Personal history of transient ischemic attack (TIA), and cerebral infarction without residual deficits; Z87.891 Personal history of nicotine dependence; Z79.82 Long term (current) use of aspirin; Z79.01 Long term (current) use of anticoagulants; E11.9 Type 2 diabetes mellitus without complications; E55.9 Vitamin D deficiency, unspecified; K76.0 Fatty (change of) liver, not elsewhere classified

== ENCOUNTER → 2016-05-25 | Outpatient (CLI) | payer BC ==
[2016-05-25 16:13] LABS: BASO ABS # 0.06 K/uL (0-0.2); COMPLETE YES; EOS % 4.4 %; HEMATOCRIT 43.6 % (42-52); IG% 0.2 %; LYMPH % 29.1 %; LYMPH ABS # 1.74 K/uL (1.2-3.4); MEAN CELL VOLUME 93.8 fL (80-100); MEAN CORPUSCULAR HEMOGLOBIN 30.8 pg (25-34); MEAN CORPUSCULAR HGB CONC 32.8 g/dl (32-36); MEAN PLATELET VOLUME 11.1 fL (7.4-10.4); MONO % 8.2 %; NEUT % 57.1 %; PLATELET COUNT 159 K/uL (130-400); RED BLOOD COUNT 4.65 M/uL (4.7-6.1); WHITE BLOOD COUNT 5.97 K/uL (4.8-10.8)
[2016-05-25 18:28] LABS: ALT/SGPT 25 U/L (12-78); AST/SGOT 15 U/L (15-37); BLOOD UREA NITROGEN 19 mg/dl (7-18); BUN/CREATININE RATIO 19.5 (10-20); CALCIUM 9.6 mg/dl (8.5-10.1); CARBON DIOXIDE 31 mmol/L (21-32); CHLORIDE 106 mmol/L (98-107); CREATININE 0.98 mg/dl (0.60-1.40); GLUCOSE 69 mg/dl (70-99); POTASSIUM 4.4 mmol/L (3.5-5.1); SODIUM 142 mmol/L (136-145)
[2016-05-25 18:33] LABS: ALKALINE PHOSPHATASE 120 U/L (45-117); PROSTATE SPECIFIC ANTIGEN 0.504 ng/ml (0.000-4.000)
== END | disposition home or self-care (01) ==
LOC: C.LABBC 10:48
PROVIDERS: ATTEND Internal Medicine Geriatric Medicine
DX: I10 Essential (primary) hypertension (principal); E29.1 Testicular hypofunction; E11.9 Type 2 diabetes mellitus without complications; E55.9 Vitamin D deficiency, unspecified; K76.0 Fatty (change of) liver, not elsewhere classified; I48.2 Chronic atrial fibrillation

== ENCOUNTER → 2016-08-09 | Outpatient (CLI) | payer BC ==
[~2016-08-09] MED LIST changes: -CMD1 PO; +CRDCD240 PO; -DIGO0.2518 PO; +DILT-113 PO; +DILT-115 PO; +ENOX80IN SQ; +FLM4 PO; +HYDR-5688 PO; +LNX125 PO; +MAGN400T6 PO; +MGNO400 PO; +OXYB5TAB PO; +PHEN-876 PO; +TAMS0.4C38 PO
--- NOTE | 2016-08-09 14:13 | DIAGNOSTIC IMAGING REPORT ---
KUB CLINICAL HISTORY: Ureteral stone. FINDINGS: An AP supine abdominal radiograph is compared to KUB and abdominal CT dated 07/26/2016. There is a nonobstructed abdominal bowel gas pattern noting moderate colonic fecal retention. There are numerous (less than 10) nonobstructing bilateral renal calculi. The largest stone is on the left and measures up to 8 mm. The obstructing right vesicoureteral junction stone seen on 07/26/2016 is no longer apparent. Scattered pelvic phleboliths are observed. The bony structures appear intact. IMPRESSION: 1. There are numerous bilateral nonobstructing renal calculi. 2. The right vesicoureteral junction stone seen on 07/26/2016 is no longer identified. Electronically signed by: Emile Neal M.D. 08/09/2016 2:12 PM Dictated Date/Time: 08/09/2016 2:09 PM
== END | disposition home or self-care (01) ==
LOC: C.RAD 13:28
PROVIDERS: ATTEND Urology
DX: N20.1 Calculus of ureter (principal)

== ENCOUNTER → 2016-08-29 | Outpatient (CLI) | payer BC ==
[2016-08-29 17:19] LABS: BASO ABS # 0.06 K/uL (0-0.2); COMPLETE YES; EOS % 2.9 %; HEMATOCRIT 43.6 % (42-52); IG% 0.2 %; LYMPH % 31.6 %; LYMPH ABS # 1.94 K/uL (1.2-3.4); MEAN CELL VOLUME 95.4 fL (80-100); MEAN CORPUSCULAR HEMOGLOBIN 31.3 pg (25-34); MEAN CORPUSCULAR HGB CONC 32.8 g/dl (32-36); MEAN PLATELET VOLUME 10.3 fL (7.4-10.4); MONO % 6.5 %; NEUT % 57.8 %; PLATELET COUNT 164 K/uL (130-400); RED BLOOD COUNT 4.57 M/uL (4.7-6.1); WHITE BLOOD COUNT 6.13 K/uL (4.8-10.8)
[2016-08-29 17:28] LABS: BLOOD UREA NITROGEN 18 mg/dl (7-18); BUN/CREATININE RATIO 19.1 (10-20); CALCIUM 9.6 mg/dl (8.5-10.1); CARBON DIOXIDE 29 mmol/L (21-32); CHLORIDE 104 mmol/L (98-107); CREATININE 0.94 mg/dl (0.60-1.40); GLUCOSE 79 mg/dl (70-99); POTASSIUM 4.7 mmol/L (3.5-5.1); SODIUM 138 mmol/L (136-145)
[2016-08-29 18:10] LABS: ESTIMATED AVERAGE GLUCOSE 128 mg/dl; HA1C FLAG Normal (Normal)
== END | disposition home or self-care (01) ==
LOC: C.LABBC 13:02
PROVIDERS: ATTEND Internal Medicine Geriatric Medicine
DX: I10 Essential (primary) hypertension (principal); I25.10 Atherosclerotic heart disease of native coronary artery without angina pectoris; E11.9 Type 2 diabetes mellitus without complications; I48.2 Chronic atrial fibrillation

== ENCOUNTER → 2016-10-19 | Outpatient (CLI) | payer BC ==
--- NOTE | 2016-10-19 19:27 | DIAGNOSTIC IMAGING REPORT ---
KUB CLINICAL HISTORY: 71 years-old Male presenting with N20.0 Nephrolithiasis. TECHNIQUE: Single supine view of the abdomen was obtained. COMPARISON: 08/09/2016. FINDINGS: Presence of gas and stool degrade evaluation of the renal shadows. Within this limitation, numerous left lower pole renal calculi again noted. Upper pole calculus on the left not as well visualized. Poor visualization of right renal calculi. No convincing evidence of calcification along the courses of the ureters. Nonobstructive bowel gas pattern. No gross free or intraperitoneal gas. Lung bases clear. Osseous structures normal. Possible atherosclerosis. IMPRESSION: 1. Bilateral nephrolithiasis. Evaluation limited due to stool burden. No convincing evidence of a calcification along the courses of the ureters. Electronically signed by: Hay Alvarado M.D. 10/19/2016 7:26 PM Dictated Date/Time: 10/19/2016 7:24 PM
== END | disposition home or self-care (01) ==
LOC: C.RAD 18:36
PROVIDERS: ATTEND Urology
DX: N20.0 Calculus of kidney (principal); R31.9 Hematuria, unspecified

== ENCOUNTER 2016-10-22 06:01 | Inpatient (IN) | payer BC, OTHER ==
[2016-10-22] VITALS (7 sets, daily range): BP systolic 106–151; BP diastolic 61–97; PULSE 105–152; TEMP 36.5–37.3; O2SAT 92–96; Ht 180.3 cm; Wt 87.0 kg
[~2016-10-22] VITALS: Ht 180.3 cm; Wt 87.0 kg
[~2016-10-22 06:01] MED LIST changes: -CRDCD240 PO; -DILT-113 PO; -DILT-115 PO; -ENOX80IN SQ; -FLM4 PO; -HYDR-5688 PO; -LISI-461 PO; -LNX125 PO; -MAGN400T6 PO; -MGNO400 PO; -OXYB5TAB PO; -PHEN-876 PO; -TAMS0.4C38 PO
[2016-10-22] MEDS ORDERED: ONDANSETRON INJ 2 MG/ML 2 ML VIAL IV STA (06:30)
[2016-10-22] MEDS ORDERED: SODIUM CHLORIDE 0.9% 500ML 500 ML IV STA (06:30)
[2016-10-22 06:48] LABS: BASO % 0.2 %; BASO ABS # 0.02 K/uL (0-0.2); COMPLETE YES; EOS % 0.5 %; HEMATOCRIT 43.7 % (42-52); IG% 0.2 %; LYMPH % 13.4 %; LYMPH ABS # 1.56 K/uL (1.2-3.4); MEAN CELL VOLUME 94.4 fL (80-100); MEAN CORPUSCULAR HEMOGLOBIN 31.5 pg (25-34); MEAN CORPUSCULAR HGB CONC 33.4 g/dl (32-36); MEAN PLATELET VOLUME 10.3 fL (7.4-10.4); MONO % 6.5 %; NEUT % 79.2 %; PLATELET COUNT 145 K/uL (130-400); RED BLOOD COUNT 4.63 M/uL (4.7-6.1); WHITE BLOOD COUNT 11.61 K/uL (4.8-10.8)
[2016-10-22 06:59] LABS: BUN/CREATININE RATIO 13.3 (10-20); CALCIUM 9.4 mg/dl (8.5-10.1); CREATININE 1.7 mg/dl (0.60-1.40); POTASSIUM 4.2 mmol/L (3.5-5.1)
[2016-10-22] MEDS ORDERED: MoRPHine SULFATE 10 MG/ML CARP/VIAL IV STA (07:38)
[2016-10-22] MEDS ORDERED: SODIUM CHLORIDE 0.9% 1000ML 1,000 ML IV STA (07:41)
--- NOTE | 2016-10-22 07:53 | DIAGNOSTIC IMAGING REPORT ---
RENAL ULTRASOUND CLINICAL HISTORY: Left flank pain. COMPARISON STUDY: CT of the abdomen and pelvis July 26, 2016 and KUB October 19, 2016. TECHNIQUE: Sonography of the kidneys and the urinary bladder was performed. FINDINGS: Bilateral renal calculi are noted. These measure up to approximately 1 cm. There is mild left hydronephrosis. There is no right hydronephrosis. Both ureteral jets were identified. Several left renal cysts were noted. IMPRESSION: 1. Mild left hydronephrosis. No ureteral calculi identified although these are often occult by sonography. 2. Extensive bilateral nephrolithiasis. 3. Both ureteral jets identified. Electronically signed by: Tahir Sullivan M.D. 10/22/2016 7:52 AM Dictated Date/Time: 10/22/2016 7:49 AM
[2016-10-22 08:29] LABS: URINE APPEARANCE CLEAR (CLEAR); URINE BILIRUBIN NEG (NEG); URINE COLOR YELLOW; URINE EPITHELIAL CELL AUTO 20-30 /lpf (0-5); URINE NITRITE NEG (NEG); URINE PH 5.5 (4.5-7.5); URINE SPECIFIC GRAVITY 1.021 (1.000-1.030); UROBILINOGEN NEG (NEG); ZZUR CULT IF INDIC CLEAN CATCH NO
[2016-10-22 08:31] LABS: MANUAL MICROSCOPIC REQUIRED? NO; REVIEW REQ? NO
[2016-10-22] MEDS ORDERED: MAGNESIUM HYDROXIDE SUSP 30 ML UDC PO PRN (09:15)
[2016-10-22] MEDS ORDERED: POLYETHYLENE (MIRALAX) 17 GM PACK PO PRN (09:15)
[2016-10-22] MEDS ORDERED: ACETAMINOPHEN PO PRN (09:15)
[2016-10-22] MEDS ORDERED: NITROGLYCERIN 0.4 MG SL PER TAB CHARGE UT SCH (09:15)
[2016-10-22] MEDS ORDERED: ONDANSETRON INJ 2 MG/ML 2 ML VIAL IV PRN (09:15)
[2016-10-22 10:07] LABS: PROTHROMBIN TIME (PATIENT) 54.5 SECONDS (9.0-12.0)
--- NOTE | 2016-10-22 10:22 | History and Physical ---
History & Physical Date & Time of Service: Oct 22, 2016 at 09:23 Chief Complaint: Kidney Stones- Pain,Nausea Primary Care Physician: Cassius Decker M.D. History of Present Illness Source: patient, family Patient is a 71 yo male with history of Afib with RVR, dementia, HTN, hyperlipidemia, chronic Coumadin therapy, CAD with history of NV in 2003, hx stroke 2010, and bilateral nephrolithiasis following by Dr. Ross as an outpatient. The patient states that he began to experience left-sided abdominal and back pain last week. He was evaluated by his urologist and had a KUB completed. KUB on 10/19 showed bilateral nephrolithiasis, but limited evaluation due to stool burden. No calcification was noted along the ureters at the time. The patient took Advil at home with minimal relief. He states that his fluid consumption has been low at home, and he typically drinks coffee and lemonade. His appetite has been decreased. He does note some chills yesterday, but denies sweats/fevers at home. He was experiencing some hematuria last week, and on urinalysis he is noted to have 2+ occult blood, 1+ ketones, & 10-30 RBCs. The patient's Creatinine usually is around 1, and is 1.70 today. BUN is slightly elevated at 23. WBC count was 11.61 on labs this morning, and Hgb/Hct was stable at 14.6/43.7. Patient had INR checked as an outpatient on 10/19 which was 2.7. Urine culture from 10/19 was negative. Renal U/S today shows mild left hydronephrosis, no ureteral calculi seen within the ability of this imaging study, extensive bilateral nephrolithiasis, and ureteral jets were identified. Patient was also experiencing nausea and vomiting prior to admission. He was given Morphine, NSS, and Zofran in the ED. He is feeling slightly improved. He did already pass a stone since presentation to the ED. Stone was sent for analysis. Past Medical/Surgical History Medical Problems: (1) Atrial fibrillation Status: Chronic (2) CAD (coronary artery disease) Status: Chronic (3) CVA (cerebral infarction) Status: Chronic (4) DJD (degenerative joint disease) of knee Status: Resolved (5) Hyperlipidemia Status: Chronic (6) Hypertension Status: Chronic (7) Dementia (8) Nephrolithiasis, B/L (9) Hx Stroke 2010 (10) Hx NV 2003 Surgical Problems: (1) S/P PTCA (percutaneous transluminal coronary angioplasty) Status: Chronic (2) Total knee replacement status Status: Chronic Family History No pertinent family history Social History Smoking Status: Former Smoker Drug Use: none Marital Status: Housing status: lives with family Occupational Status: retired Immunizations History of Influenza Vaccine: Yes Influenza Vaccine Date: Jan 09, 2006 History of Tetanus Vaccine?: Yes History of Pneumococcal: Yes History of Hepatitis B Vaccine: No Multi-Drug Resistant Organisms History of MDRO: No Allergies Coded Allergies: Adhesives (Verified Allergy, Intermediate, BLISTERS, 07/26/16) Alcohol (Verified Allergy, Unknown, RUBBING ALCOHOL MADE SHORTNESS OF BREATH, 07/26/16) NO KNOWN DRUG ALLERGIES (Verified Allergy, Unknown, ., 07/26/16) Home Medications Scheduled Aspirin (Aspirin Chewable), 81 MG PO QAM Atorvastatin (Lipitor), 40 MG PO HS Cholecalciferol (Vitamin D3), 1,000 UNITS PO HS Metoprolol Tartrate (Lopressor) (Lopressor), 100 MG PO BID Nitroglycerin (Nitrostat), 0.4 MG UT PRN Rivastigmine Tartrate (Exelon), 3 MG PO QAM Testosterone (Androgel Pump), 40.5 MG TOP DAILY Warfarin Sod (Coumadin), 2 MG PO DAILY Scheduled PRN Acetaminophen (Tylenol Arthritis Ext Rel), 2 TAB PO DAILY PRN for Pain Review of Systems Constitutional: + chills, No fever, No sweats, No weakness Eyes: No worsening of vision ENT: No hearing loss Respiratory: + cough (chronic) Cardiovascular: No chest pain, No edema Abdomen: + pain (left-sided, radiates into back and left groin) Musculoskeletal: No joint pain, No muscle pain Genitourinary - Male: + hematuria (at home), + dysuria, No urinary frequency Neurologic: No weakness, No numbness/tingling Integumentary: No rash, No itch Physical Exam Vital Signs Date Time Temp Pulse Resp B/P (MAP) Pulse Ox O2 Delivery O2 Flow Rate FiO2 10/22/16 08:33 108 20 166/115 95 10/22/16 08:15 96 Room Air 10/22/16 07:08 110 18 161/100 96 Room Air 10/22/16 06:07 36.4 117 20 163/92 93 Room Air General Appearance: WD/WN, no apparent distress Head: normocephalic, atraumatic Eyes: normal inspection, sclerae normal ENT: hearing grossly normal Neck: supple, trachea midline Respiratory/Chest: chest non-tender, lungs clear, normal breath sounds, no respiratory distress, no accessory muscle use Cardiovascular: + tachycardia, + irregularly irregular Abdomen/GI: normal bowel sounds, soft, + tenderness (suprapubic) Back: normal inspection Extremities/Musculoskelatal: normal inspection, + pertinent finding (mild antereior tibial edema b/l LE) Neurologic/Psych: alert, normal mood/affect Skin: normal color, warm/dry, no rash VS upon presentation: T: 36.4 C HR 117 RR 20 BP 163/92 SaO2 93% on room air Diagnostics Laboratory Results Results Past 24 Hours Test 10/22/16 06:25 10/22/16 08:00 Range/Units White Blood Count 11.61 4.8-10.8 K/uL Red Blood Count 4.63 4.7-6.1 M/uL Hemoglobin 14.6 14.0-18.0 g/dL Hematocrit 43.7 42-52 % Mean Corpuscular Volume 94.4 80-100 fL Mean Corpuscular Hemoglobin 31.5 25-34 pg Mean Corpuscular Hemoglobin Concent 33.4 32-36 g/dl Platelet Count 145 130-400 K/uL Mean Platelet Volume 10.3 7.4-10.4 fL Neutrophils (%) (Auto) 79.2 % Lymphocytes (%) (Auto) 13.4 % Monocytes (%) (Auto) 6.5 % Eosinophils (%) (Auto) 0.5 % Basophils (%) (Auto) 0.2 % Neutrophils # (Auto) 9.20 1.4-6.5 K/uL Lymphocytes # (Auto) 1.56 1.2-3.4 K/uL Monocytes # (Auto) 0.75 0.11-0.59 K/uL Eosinophils # (Auto) 0.06 0-0.5 K/uL Basophils # (Auto) 0.02 0-0.2 K/uL RDW Standard Deviation 50.1 36.4-46.3 fL RDW Coefficient of Variation 14.6 11.5-14.5 % Immature Granulocyte % (Auto) 0.2 % Immature Granulocyte # (Auto) 0.02 0.00-0.02 K/uL Sodium Level 134 136-145 mmol/L Potassium Level 4.2 3.5-5.1 mmol/L Chloride Level 99 98-107 mmol/L Carbon Dioxide Level 27 21-32 mmol/L Anion Gap 8.0 3-11 mmol/L Blood Urea Nitrogen 23 7-18 mg/dl Creatinine 1.70 0.60-1.40 mg/dl Est Creatinine Clear Calc Drug Dose 46.5 ml/min Estimated GFR () 46.3 Estimated GFR (Non- 40.0 BUN/Creatinine Ratio 13.3 10-20 Random Glucose 111 70-99 mg/dl Calcium Level 9.4 8.5-10.1 mg/dl Total Bilirubin 1.6 0.2-1 mg/dl Direct Bilirubin 0.5 0-0.2 mg/dl Aspartate Amino Transf (AST/SGOT) 22 15-37 U/L Alanine Aminotransferase (ALT/SGPT) 20 12-78 U/L Alkaline Phosphatase 121 45-117 U/L Total Protein 8.2 6.4-8.2 gm/dl Albumin 4.0 3.4-5.0 gm/dl Lipase 228 73-393 U/L Urine Color YELLOW Urine Appearance CLEAR CLEAR Urine pH 5.5 4.5-7.5 Urine Specific [place] 1.021 1.000-1.030 Urine Protein 2+ NEG Urine Glucose (UA) NEG NEG Urine Ketones 1+ NEG Urine Occult Blood 2+ NEG Urine Nitrite NEG NEG Urine Bilirubin NEG NEG Urine Urobilinogen NEG NEG Urine Leukocyte Esterase NEG NEG Urine WBC (Auto) 1-5 0-5 /hpf Urine RBC (Auto) 10-30 0-4 /hpf Urine Hyaline Casts (Auto) 1-5 0-5 /lpf Urine Epithelial Cells (Auto) 20-30 0-5 /lpf Urine Bacteria (Auto) NEG NEG Diagnostic Radiology RENAL ULTRASOUND CLINICAL HISTORY: Left flank pain. COMPARISON STUDY: CT of the abdomen and pelvis July 26, 2016 and KUB October 19, 2016. TECHNIQUE: Sonography of the kidneys and the urinary bladder was performed. FINDINGS: Bilateral renal calculi are noted. These measure up to approximately 1 cm. There is mild left hydronephrosis. There is no right hydronephrosis. Both ureteral jets were identified. Several left renal cysts were noted. IMPRESSION: 1. Mild left hydronephrosis. No ureteral calculi identified although these are often occult by sonography. 2. Extensive bilateral nephrolithiasis. 3. Both ureteral jets identified. Impression Assessment and Plan Bilateral nephrolithiasis, probable ureteral stone with passage in ED, left- sided hydronephrosis -Continue NSS -Continue to strain urine- seems likely that patient passed stone in ED. Stone sent for analysis -Monitor BUN/Creatinine. Will recheck BMP in AM Abdominal pain secondary to renal stone -Passed stone- continues to have on and off left-sided pain -Continue Morphine 2 mg Q 2h prn severe pain, Tylenol PRN mild/moderate pain Nausea -Continue Zofran PRN History of chronic Afib, stroke, NV -Continue Coumadin, SCD's -Check INR now, recheck in AM -Nitro PRN chest pain Hypertension -Continue at home Metoprolol Hyperlipidemia -Continue Atorvastatin Level of Care Med/Surg Advanced Directives Existing Living Will: Yes Existing Power of Respiratory Therapist Assistant: Yes VTE Prophylaxis VTE Risk Assessment Done? Y/N: Yes Risk Level: Moderate (Patient on chronic Coumadin therapy- hx stroke, hx NV, chornic Afib) Given or contraindicated: Warfarin (Coumadin), SCD's
[2016-10-22 10:25] LABS: INR 4.8 (0.9-1.1)
[2016-10-22] MEDS ORDERED: IV FLUIDS COMPLETED PRN (10:30)
[2016-10-22] MEDS: SODIUM CHLORIDE 0.9% 1000ML 1,000 ML IV SCH ×2 (11:28→19:56)
--- NOTE | 2016-10-22 14:08 | EMERGENCY ROOM VISIT NOTE ---
History Report prepared by Arina: Agustina Abraham Under the Supervision of: Dr. Kam Keita M.D. First contact with patient: 06:24 Chief Complaint: KIDNEY STONE Stated Complaint: KIDNEY STONES- PAIN,NAUSEA History of Present Illness The patient is a 71 year old male who presents to the Emergency Room with complaints of an episode of back pain starting a few days ago. The patient states that he has a history of kidney stones and was in the ED three days ago for one. The patient notes he did go to his urologist who told him that the stone could be passed. He states that since then he has increased pain and nausea. He states it feels like "past kidney stones." He currently rates his pain as a 4/10 in severity. The patient notes he took Advil with little relief. He states the tried taking Oxycodone for the pain, but he reports that it made him sick. The patient complains of vomiting. The patient denies fevers, chills, abnormal appetite, burning with urination, diarrhea, shortness of breath, and chest pain. Source of History: patient Onset: a few days ago Position: back Symptom Intensity: 4/10 Quality: other ("past kidney stones") Timing: other (episode) Associated Symptoms: + nausea, + vomiting, No fevers, No chills, No chest pain, No SOB, No diarrhea, No urinary symptoms (burning with urination) Note: The patient denies abnormal appetite. Review of Systems See HPI for pertinent positives & negatives. A total of 10 systems reviewed and were otherwise negative. Past Medical & Surgical Medical Problems: (1) Atrial fibrillation (2) CAD (coronary artery disease) (3) Cellulitis of right lower extremity without foot (4) CVA (cerebral infarction) (5) DJD (degenerative joint disease) of knee (6) Hx of renal calculi (7) Hydronephrosis (8) Hydronephrosis (9) Hyperlipidemia (10) Hypertension (11) Renal calculus, left Surgical Problems: (1) S/P PTCA (percutaneous transluminal coronary angioplasty) (2) Total knee replacement status Family History No pertinent family history Social History Smoking Status: Former Smoker Alcohol Use: none Drug Use: none Marital Status: Housing Status: lives with significant other Occupation Status: retired Current/Historical Medications Scheduled Aspirin (Aspirin Chewable), 81 MG PO QAM Atorvastatin (Lipitor), 40 MG PO HS Cholecalciferol (Vitamin D3), 1,000 UNITS PO HS Metoprolol Tartrate (Lopressor) (Lopressor), 100 MG PO BID Nitroglycerin (Nitrostat), 0.4 MG UT PRN Rivastigmine Tartrate (Exelon), 3 MG PO QAM Testosterone (Androgel Pump), 40.5 MG TOP DAILY Warfarin Sod (Coumadin), 2 MG PO DAILY Scheduled PRN Acetaminophen (Tylenol Arthritis Ext Rel), 2 TAB PO DAILY PRN for Pain Allergies Coded Allergies: Adhesives (Verified Allergy, Intermediate, BLISTERS, 07/26/16) Alcohol (Verified Allergy, Unknown, RUBBING ALCOHOL MADE SHORTNESS OF BREATH, 07/26/16) NO KNOWN DRUG ALLERGIES (Verified Allergy, Unknown, ., 07/26/16) Physical Exam Vital Signs Date Time Temp Pulse Resp B/P (MAP) Pulse Ox O2 Delivery O2 Flow Rate FiO2 10/22/16 08:33 108 20 166/115 95 10/22/16 08:15 96 Room Air 10/22/16 07:08 110 18 161/100 96 Room Air 10/22/16 06:07 36.4 117 20 163/92 93 Room Air Physical Exam GENERAL: Patient is uncomfortable appearing and in moderate distress. HEENT: No acute trauma, normocephalic atraumatic, mucous membranes moist, no nasal congestion, no scleral icterus. NECK: No stridor, no adenopathy, no meningismus, trachea is midline. LUNGS: No dyspnea. Clear to auscultation and equal bilaterally. No wheeze, no rhonchi. HEART: Tachycardic rate and regular rhythm. No murmurs, rubs, gallops appreciated. ABDOMEN: Soft, nontender, bowel sounds positive, no masses appreciated, no peritonitis. BACK: No midline tenderness, no CVA tenderness EXTREMITIES: Normal motion all extremities, no cyanosis, no edema. NEUROLOGIC: Alert and oriented, no acute motor or sensory deficits, no focal weakness, cranial nerves grossly intact. SKIN: No rash, no jaundice, no diaphoresis. Medical Decision & Procedures ER Provider Diagnostic Interpretation: Radiology results and stated below per my review and radiologist interpretation: RENAL ULTRASOUND CLINICAL HISTORY: Left flank pain. COMPARISON STUDY: CT of the abdomen and pelvis July 26, 2016 and KUB October 19, 2016. TECHNIQUE: Sonography of the kidneys and the urinary bladder was performed. FINDINGS: Bilateral renal calculi are noted. These measure up to approximately 1 cm. There is mild left hydronephrosis. There is no right hydronephrosis. Both ureteral jets were identified. Several left renal cysts were noted. IMPRESSION: 1. Mild left hydronephrosis. No ureteral calculi identified although these are often occult by sonography. 2. Extensive bilateral nephrolithiasis. 3. Both ureteral jets identified. Electronically signed by: Tahir Sullivan M.D. 10/22/2016 7:52 AM Dictated Date/Time: 10/22/2016 7:49 AM Laboratory Results 10/22/16 06:25 Red Blood Count 4.63, Mean Corpuscular Volume 94.4, Mean Corpuscular Hemoglobin 31.5, Mean Corpuscular Hemoglobin Concent 33.4, Mean Platelet Volume 10.3, Neutrophils (%) (Auto) 79.2, Lymphocytes (%) (Auto) 13.4, Monocytes (%) (Auto) 6.5, Eosinophils (%) (Auto) 0.5, Basophils (%) (Auto) 0.2, Neutrophils # (Auto) 9.20, Lymphocytes # (Auto) 1.56, Monocytes # (Auto) 0.75, Eosinophils # (Auto) 0.06, Basophils # (Auto) 0.02 10/22/16 06:25 Test 10/22/16 06:25 10/22/16 08:00 White Blood Count 11.61 K/uL (4.8-10.8) Red Blood Count 4.63 M/uL (4.7-6.1) Hemoglobin 14.6 g/dL (14.0-18.0) Hematocrit 43.7 % (42-52) Mean Corpuscular Volume 94.4 fL (80-100) Mean Corpuscular Hemoglobin 31.5 pg (25-34) Mean Corpuscular Hemoglobin Concent 33.4 g/dl (32-36) Platelet Count 145 K/uL (130-400) Mean Platelet Volume 10.3 fL (7.4-10.4) Neutrophils (%) (Auto) 79.2 % Lymphocytes (%) (Auto) 13.4 % Monocytes (%) (Auto) 6.5 % Eosinophils (%) (Auto) 0.5 % Basophils (%) (Auto) 0.2 % Neutrophils # (Auto) 9.20 K/uL (1.4-6.5) Lymphocytes # (Auto) 1.56 K/uL (1.2-3.4) Monocytes # (Auto) 0.75 K/uL (0.11-0.59) Eosinophils # (Auto) 0.06 K/uL (0-0.5) Basophils # (Auto) 0.02 K/uL (0-0.2) RDW Standard Deviation 50.1 fL (36.4-46.3) RDW Coefficient of Variation 14.6 % (11.5-14.5) Immature Granulocyte % (Auto) 0.2 % Immature Granulocyte # (Auto) 0.02 K/uL (0.00-0.02) Prothrombin Time 54.5 SECONDS (9.0-12.0) Prothromb Time International Ratio 4.8 (0.9-1.1) Anion Gap 8.0 mmol/L (3-11) Est Creatinine Clear Calc Drug Dose 46.5 ml/min Estimated GFR () 46.3 Estimated GFR (Non- 40.0 BUN/Creatinine Ratio 13.3 (10-20) Calcium Level 9.4 mg/dl (8.5-10.1) Total Bilirubin 1.6 mg/dl (0.2-1) Direct Bilirubin 0.5 mg/dl (0-0.2) Aspartate Amino Transf (AST/SGOT) 22 U/L (15-37) Alanine Aminotransferase (ALT/SGPT) 20 U/L (12-78) Alkaline Phosphatase 121 U/L (45-117) Total Protein 8.2 gm/dl (6.4-8.2) Albumin 4.0 gm/dl (3.4-5.0) Lipase 228 U/L (73-393) Urine Color YELLOW Urine Appearance CLEAR (CLEAR) Urine pH 5.5 (4.5-7.5) Urine Specific [place] 1.021 (1.000-1.030) Urine Protein 2+ (NEG) Urine Glucose (UA) NEG (NEG) Urine Ketones 1+ (NEG) Urine Occult Blood 2+ (NEG) Urine Nitrite NEG (NEG) Urine Bilirubin NEG (NEG) Urine Urobilinogen NEG (NEG) Urine Leukocyte Esterase NEG (NEG) Urine WBC (Auto) 1-5 /hpf (0-5) Urine RBC (Auto) 10-30 /hpf (0-4) Urine Hyaline Casts (Auto) 1-5 /lpf (0-5) Urine Epithelial Cells (Auto) 20-30 /lpf (0-5) Urine Bacteria (Auto) NEG (NEG) Laboratory results as reviewed by me. Medications Administered Medications (Trade) Dose Ordered Sig/Mariaa Route Start Time Stop Time Status Last Admin Dose Admin Ondansetron HCl (Zofran Inj) 4 mg NOW STAT IV 10/22/16 06:30 10/22/16 06:32 DC 10/22/16 06:38 4 MG Sodium Chloride 500 ml @ 999 mls/hr Q31M STAT IV 10/22/16 06:30 10/22/16 07:00 DC 10/22/16 06:38 999 MLS/HR Morphine Sulfate (MoRPHine SULFATE INJ) 6 mg NOW STAT IV 10/22/16 07:38 10/22/16 07:39 DC 10/22/16 07:45 6 MG Sodium Chloride 1,000 ml @ 125 mls/hr Q8H STAT IV 10/22/16 07:41 10/22/16 10:49 DC 10/22/16 07:45 125 MLS/HR ED Course 1626: The patient was evaluated in room A10. A complete history and physical exam was performed. 0630: Ordered NSS 500 ml @ 999 mls/hr IV, Zofran Inj 4 mg IV. 0738: Ordered Morphine Sulfate 6 mg IV. 0741: Ordered NSS 1000 ml @ 125 mls/hr IV. 0801: Discussed the patient's case with Dr. Lopez. The patient will be evaluated for further treatment and disposition. 0807: I reevaluated the patient and he is doing okay. I let him and his family know of the treatment plan. Medical Decision Differential: Renal Colic, Pyelonephritis, Hydronephrosis, Appendicitis, Diverticulitis, Retroperitoneal Bleed/Infection, Aortic Pathology, MSK, Neurologic Pathology, amongst other pathologies entertained. 71 yr old male with acute left flank pain over the last 4 days already seen by Urology. Had issue few months back with similar though eventually passed. Unable to get pain under control at home. He is dry appearing and Cr is starting to bump. Left hydro noted. Likely stone related. He did pass a stone here but states pain continued unchanged thus I suspect given stone burden there is likely continued obstruction. Regardless with Cr doubling in this setting will plan on bringing in for rehydration and further monitoring. No evidence sepsis and he does not have peritonitis. I do not feel that CT required emergently at this time. Medication Reconcilliation Current Medication List: was personally reviewed by me Blood Pressure Screening Patient's blood pressure: Elevated blood pressure Blood pressure disposition: Elevated BP felt to be situational Consults Time Called: 0758 Consulting Physician: Dr. Lopez Returned Call: [phone] Discussed the patient's case with Dr. Lopez. The patient will be evaluated for further treatment and disposition. Impression Primary Impression: Renal colic Additional Impressions: Renal insufficiency Dehydration Scribe Attestation The scribe's documentation has been prepared under my direction and personally reviewed by me in its entirety. I confirm that the note above accurately reflects all work, treatment, procedures, and medical decision making performed by me. Departure Information Dispostion Being Evaluated By Hospitalist Referrals Cassius Decker M.D. (PCP) Patient Instructions [facility] Problem Qualifiers
[2016-10-22] MEDS: MoRPHine SULFATE 2 MG/ML CARP IV PRN ×2 (16:34→17:59)
[2016-10-22] MEDS ORDERED: NURSING VERBAL MED ORDER ONE (17:00)
[2016-10-22] MEDS ORDERED: MoRPHine SULFATE 2 MG/ML CARP IV ONE (17:15)
[2016-10-22] MEDS: ATORVASTATIN 40 MG TAB PO SCH (20:38)
[2016-10-22] MEDS: CHOLECALCIFEROL 1000 INTER.UNIT TAB PO SCH (20:39)
[2016-10-22] MEDS: METOPROLOL TARTRATE 100 MG TAB PO SCH (20:39)
[2016-10-23] MEDS: SODIUM CHLORIDE 0.9% 1000ML 1,000 ML IV SCH ×2 (05:35→15:24)
[2016-10-23 06:15] LABS: HEMATOCRIT 40.5 % (42-52); MEAN CELL VOLUME 95.1 fL (80-100); MEAN CORPUSCULAR HEMOGLOBIN 31.2 pg (25-34); MEAN CORPUSCULAR HGB CONC 32.8 g/dl (32-36); MEAN PLATELET VOLUME 10.2 fL (7.4-10.4); PLATELET COUNT 120 K/uL (130-400); RED BLOOD COUNT 4.26 M/uL (4.7-6.1); WHITE BLOOD COUNT 8.84 K/uL (4.8-10.8)
[2016-10-23 06:37] LABS: INR 3.5 (0.9-1.1); PROTHROMBIN TIME (PATIENT) 39.5 SECONDS (9.0-12.0)
[2016-10-23 06:43] LABS: BUN/CREATININE RATIO 14.4 (10-20); CALCIUM 8.7 mg/dl (8.5-10.1); CREATININE 1.5 mg/dl (0.60-1.40); POTASSIUM 4.2 mmol/L (3.5-5.1)
[2016-10-23 07:19] VITALS: BP 166/82; PULSE 136; TEMP 37.1; O2SAT 90
[2016-10-23 07:50] VITALS: PULSE 100
[2016-10-23] MEDS: ASPIRIN 81 MG ECTAB PO SCH (07:53)
[2016-10-23] MEDS: METOPROLOL TARTRATE 100 MG TAB PO SCH ×2 (07:54→20:51)
[2016-10-23] MEDS: RIVASTIGMINE TARTRATE (EXELON) 1.5 MG CAP PO SCH (07:54)
[2016-10-23] MEDS ORDERED: WARFARIN SOD 2 MG TAB PO SCH (09:00)
[2016-10-23] MEDS: ACETAMINOPHEN 325 MG TAB PO PRN ×3 (10:00→20:52)
[2016-10-23 10:12] VITALS: BP 144/79; PULSE 90
--- NOTE | 2016-10-23 11:06 | Urology Consultation ---
History General Date of Service: Oct 23, 2016. Primary Care Physician: Cassius Decker M.D. History of Present Illness Patient is a 71-year-old white male with history of nephrolithiasis. He was admitted through the emergency room with nausea vomiting and left-sided flank pain. He denies any fevers. Currently he says he is feeling somewhat better. He thinks he may have passed a small stone. Laboratory Last Vital Signs Documentation Date Time Temp Pulse Resp B/P (MAP) Pulse Ox O2 Delivery O2 Flow Rate FiO2 10/23/16 10:12 90 144/79 (100) 10/23/16 07:50 Room Air 10/23/16 07:19 37.1 20 90 Last 24 Hours Test 10/23/16 05:17 White Blood Count 8.84 K/uL Red Blood Count 4.26 M/uL Hemoglobin 13.3 g/dL Hematocrit 40.5 % Mean Corpuscular Volume 95.1 fL Mean Corpuscular Hemoglobin 31.2 pg Mean Corpuscular Hemoglobin Concent 32.8 g/dl RDW Standard Deviation 51.8 fL RDW Coefficient of Variation 15.0 % Platelet Count 120 K/uL Mean Platelet Volume 10.2 fL Prothrombin Time 39.5 SECONDS Prothromb Time International Ratio 3.5 Sodium Level 138 mmol/L Potassium Level 4.2 mmol/L Chloride Level 107 mmol/L Carbon Dioxide Level 23 mmol/L Anion Gap 8.0 mmol/L Blood Urea Nitrogen 22 mg/dl Creatinine 1.50 mg/dl Est Creatinine Clear Calc Drug Dose 52.7 ml/min Estimated GFR () 53.9 Estimated GFR (Non- 46.5 BUN/Creatinine Ratio 14.4 Random Glucose 85 mg/dl Calcium Level 8.7 mg/dl Problem List Medical Problems: (1) Calculus of distal right ureter Status: Acute (2) Cellulitis of right lower extremity Status: Acute (3) CVA (cerebral infarction) Status: Chronic (4) Dehydration Status: Acute (5) Hematuria Status: Acute (6) Obstruction of right ureteropelvic junction due to stone Status: Acute (7) Renal colic Status: Acute (8) Renal insufficiency Status: Acute Surgical Problems: (1) S/P PTCA (percutaneous transluminal coronary angioplasty) Status: Chronic (2) Total knee replacement status Status: Chronic Family History No pertinent family history Social History Hx Tobacco Use In Past Year?: No Marital status: Housing status: lives with family Occupation status: retired Immunizations History of Influenza Vaccine: Yes Influenza Vaccine Date: Jan 09, 2006 History of Tetanus Vaccine?: Yes History of Pneumococcal: Yes History of Hepatitis B Vaccine: No History of MDRO No Allergies Coded Allergies: Adhesives (Verified Allergy, Intermediate, BLISTERS, 07/26/16) Alcohol (Verified Allergy, Unknown, RUBBING ALCOHOL MADE SHORTNESS OF BREATH, 07/26/16) NO KNOWN DRUG ALLERGIES (Verified Allergy, Unknown, ., 07/26/16) Medications Home Medications: Home Meds and Scripts Medications Dose Route/Sig Max Daily Dose Days Date Category Vitamin D3 (Cholecalciferol) 1,000 Unit Tab 1,000 Units PO HS 03/02/16 Reported Androgel Pump (Testosterone) 1.62 % Gel 40.5 Mg TOP DAILY 12/30/15 Reported Lopressor (Metoprolol Tartrate) 100 Mg Tab 100 Mg PO BID 05/28/15 Reported Exelon (Rivastigmine Tartrate) 3 Mg Cap 3 Mg PO QAM 05/28/15 Reported Tylenol Arthritis Ext Rel (Acetaminophen) 650 Mg Cplt 2 Tab PO DAILY PRN 05/28/15 Reported Aspirin Chewable (Aspirin) 81 Mg Chew 81 Mg PO QAM 05/28/15 Reported Coumadin (Warfarin Sod) 2 Mg Tab 2 Mg PO DAILY 02/12/14 Reported Nitrostat (Nitroglycerin) 0.4 Mg Tab 0.4 Mg UT PRN 02/12/14 Reported Lipitor (Atorvastatin Calcium) 40 Mg Tab 40 Mg PO HS 02/12/14 Reported Inpatient Medications: Current Inpatient Medications Medications (Trade) Dose Ordered Sig/Mariaa Route Start Time Stop Time Status Last Admin Dose Admin Aspirin (Ecotrin Tab) 81 mg QAM PO 10/23/16 09:00 11/22/16 08:59 10/23/16 07:53 81 MG Atorvastatin Calcium (Lipitor Tab) 40 mg HS PO 10/22/16 21:00 11/21/16 20:59 10/22/16 20:38 40 MG Cholecalciferol (Vitamin D Tab) 1,000 inter.unit HS PO 10/22/16 21:00 11/21/16 20:59 10/22/16 20:39 1,000 INTER.UNIT Metoprolol Tartrate (Lopressor Tab) 100 mg BID PO 10/22/16 21:00 11/21/16 20:59 10/23/16 07:54 100 MG Nitroglycerin (Nitrostat Tab) 0.4 mg PRN UT 10/22/16 09:15 11/21/16 09:14 Rivastigmine Tartrate (Exelon Cap) 3 mg QAM PO 10/23/16 09:00 11/22/16 08:59 10/23/16 07:54 3 MG Miscellaneous Information (Order Awaiting Action) 1 ea QS N/A 10/22/16 12:00 11/21/16 11:59 Acetaminophen (Tylenol Tab) 650 mg Q4H PRN PO 10/22/16 09:15 11/21/16 09:14 10/23/16 10:00 650 MG Al Hydrox/Mg Hydrox/Simethicone (Maalox Max Susp) 15 ml Q4H PRN PO 10/22/16 09:15 11/21/16 09:14 Magnesium Hydroxide (Milk Of Magnesia Susp) 30 ml Q6H PRN PO 10/22/16 09:15 11/21/16 09:14 Polyethylene (Miralax Powder Packet) 17 gm DAILY PRN PO 10/22/16 09:15 11/21/16 09:14 10/23/16 09:28 17 GM Ondansetron HCl (Zofran Inj) 4 mg Q6H PRN IV 10/22/16 09:15 11/21/16 09:14 Sodium Chloride 1,000 ml @ 100 mls/hr Q10H IV 10/22/16 10:00 10/24/16 12:00 10/23/16 05:35 100 MLS/HR Morphine Sulfate (MoRPHine SULFATE INJ) 2 mg Q2HWA PRN IV 10/22/16 10:15 11/05/16 10:14 10/22/16 17:59 2 MG Miscellaneous (Iv Fluids Completed) 1 ea PRN PRN N/A 10/22/16 10:30 10/22/17 10:29 Review of Systems Review of Systems Additional Comments: Review of systems were evaluated from his admitting history and physical Physical Exam Vital Signs: Vital Signs Past 12 Hours Date Time Temp Pulse Resp B/P (MAP) Pulse Ox O2 Delivery O2 Flow Rate FiO2 10/23/16 10:12 90 144/79 (100) 10/23/16 07:50 Room Air 10/23/16 07:50 100 10/23/16 07:19 37.1 136 20 166/82 (110) 90 Room Air 10/23/16 00:00 Room Air 10/22/16 23:44 36.9 105 20 148/97 (114) 92 Room Air Physical Exam: General Appearance: WD/WN, no apparent distress Eyes: bilateral eyes normal inspection ENT: hearing grossly normal Neck: supple Respiratory/Chest: no respiratory distress, no accessory muscle use Gastrointestinal: Abdomen: normal abdomen Neurologic/Psychiatric: oriented x 3 Skin: normal color, warm/dry Assessment & Plan Assessment & Plan Assessment #1 history of nephrolithiasis with left flank pain His urinalysis does show some microscopic hematuria Creatinine is 1.5 White count is 8 He had a urine culture done on October 19 which was negative He had a KUB done on October 19 which shows bilateral renal stones there are no ureteral stones visible Since the patient is having intermittent pain on and off we'll schedule him for a noncontrast CT If it appears that he is passing a stone by CT I'll make him nothing by mouth after midnight and plan on stent placement or possible ureteroscopy stone extraction and stent for tomorrow
--- NOTE | 2016-10-23 12:35 | DIAGNOSTIC IMAGING REPORT ---
ABD/PELVIS WITHOUT FOR STONE HISTORY: 71 years-old Male nephrolithasis bilateral nephrolithiasis with acute left flank pain. Follow-up study. COMPARISON: Renal ultrasound 10/22/2016, CT abdomen and pelvis 07/26/2016. TECHNIQUE: Multiple axial CT images of the abdomen and pelvis were obtained without contrast. A dose lowering technique was used consistent with the principals of SAM. FINDINGS: Lung bases are clear. Coronary arterial calcifications are noted. There is no pneumoperitoneum. The liver, spleen, and adrenal glands are within normal limits. There is moderate diffuse pancreatic atrophy. Gallbladder is unremarkable. Low attenuating lesions throughout the kidneys bilaterally suggests cysts. Bilateral nephrolithiasis is redemonstrated. There is mild left-sided hydroureteronephrosis secondary to a 7 x 5 x 6 mm calculus of the left ureteropelvic junction. Additionally, there is a 4 x 3 x 3 mm calculus of the distal left ureter just proximal to the ureterovesicular junction seen on image 337. Additionally, calculi layering within the dependent urinary bladder lumen also noted measuring up to 3 mm. Prostate is enlarged. Bilateral fat filled inguinal hernias are noted. There is mild plaquing of the abdominal aorta. No bulky retroperitoneal adenopathy. Small duodenal diverticulum. There is no bowel obstruction. No focal bowel wall thickening. The appendix appears normal. Soft tissues are unremarkable. Bones are intact. 5 mm sclerotic focus of the posterior right iliac wing is unchanged. IMPRESSION: 1. Mild left-sided hydroureteronephrosis secondary to 7 x 5 x 6 mm calculus of the left ureteropelvic junction. Additionally, there is an obstructing 4 x 3 x 3 mm calculus of the distal left ureter just proximal to the ureterovesicular junction. 2. Bilateral nephrolithiasis redemonstrated. Small layering calculi are seen within the dependent urinary bladder lumen. 3. Prostatomegaly. The above report was generated using voice recognition software. It may contain grammatical, syntax or spelling errors. Electronically signed by: Jed Vital M.D. 10/23/2016 12:33 PM Dictated Date/Time: 10/23/2016 12:15 PM
--- NOTE | 2016-10-23 15:01 | Progress Note ---
Progress Note Date of Service Oct 23, 2016. Progress Note CT reviewed Pt has a stone at the left UPJ and one at the left UVJ. As per discussion with pt this morning will go to OR tomorrow for treatment.
[2016-10-23 15:22] VITALS: BP 131/90; PULSE 111; TEMP 36.8; O2SAT 94
[2016-10-23] MEDS ORDERED: PHYTONADIONE INJ 5 MG in SODIUM CHLORIDE 0.9% 50ML 50 ML IV ONE (15:30)
--- NOTE | 2016-10-23 15:39 | Hospitalist Progress Note ---
Hospitalist Progress Note Date of Service Oct 23, 2016. (Sylvia Tavera ., SHAYEC) Subjective Pt evaluation today including: conversation w/ patient, physical exam, chart review, lab review, review of studies, review of inpatient medication list Pain: Intermittent 5/10 aching left flank pain PO Intake: Tolerating PO diet Voiding: no voiding problems Patient reports feeling better. He does still have some intermittent 5/10 aching pain in his left flank. He states that his dysuria and gross hematuria have resolved and he now is urinating without difficulty. He denies any other complaints. The patient denies fevers, chills, sweats, chest pain, palpitations , claudication, cough, wheezing, shortness of breath, nausea, vomiting, dysuria , hematuria, urinary retention, paralysis, weakness, numbness and tingling. Additional Comments: See HPI for pertinent positives and negatives. All other systems reviewed and negative. (Sylvia Tavera ., STEPH-C) Objective Vital Signs Date Time Temp Pulse Resp B/P (MAP) Pulse Ox O2 Delivery O2 Flow Rate FiO2 10/23/16 10:12 90 144/79 (100) 10/23/16 07:50 Room Air 10/23/16 07:50 100 10/23/16 07:19 37.1 136 20 166/82 (110) 90 Room Air 10/23/16 00:00 Room Air 10/22/16 23:44 36.9 105 20 148/97 (114) 92 Room Air 10/22/16 20:37 110 106/81 (89) 10/22/16 20:00 Room Air 10/22/16 16:27 37.3 18 135/89 (104) 92 Room Air 10/22/16 16:21 37.3 152 18 135/89 (104) 92 Room Air 10/22/16 16:00 95 Room Air (Sylvia Tavera ., STEPH-C) Physical Exam Notes: General appearance: Well-developed, well-nourished, no apparent distress Head: Normocephalic, atraumatic Eyes: Normal inspection, PERRL, EOMI ENT: Normal ENT inspection, hearing grossly normal, pharynx normal Neck: Supple, no JVD, trachea midline Respiratory/Chest: Lungs clear to auscultation, normal breath sounds, no respiratory distress Cardiovascular: +Irregularly irregular. Regular rate, no gallop, no murmur Abdomen/GI: +RUQ and RLQ mildly TTP. Left flank TTP. Normal bowel sounds, soft Extremities/Musculoskeletal: Normal inspection, no calf tenderness, no pedal edema Neurological/Psych: Alert, normal mood/affect, oriented x 3 Skin: Normal color, warm/dry, no rash (Sylvia Tavera ., SHAYEC) Laboratory Results Last 24 Hours Test 10/23/16 05:17 White Blood Count 8.84 K/uL Red Blood Count 4.26 M/uL Hemoglobin 13.3 g/dL Hematocrit 40.5 % Mean Corpuscular Volume 95.1 fL Mean Corpuscular Hemoglobin 31.2 pg Mean Corpuscular Hemoglobin Concent 32.8 g/dl RDW Standard Deviation 51.8 fL RDW Coefficient of Variation 15.0 % Platelet Count 120 K/uL Mean Platelet Volume 10.2 fL Prothrombin Time 39.5 SECONDS Prothromb Time International Ratio 3.5 Sodium Level 138 mmol/L Potassium Level 4.2 mmol/L Chloride Level 107 mmol/L Carbon Dioxide Level 23 mmol/L Anion Gap 8.0 mmol/L Blood Urea Nitrogen 22 mg/dl Creatinine 1.50 mg/dl Est Creatinine Clear Calc Drug Dose 52.7 ml/min Estimated GFR () 53.9 Estimated GFR (Non- 46.5 BUN/Creatinine Ratio 14.4 Random Glucose 85 mg/dl Calcium Level 8.7 mg/dl (Sylvia Tavera ., SHAYEC) Diagnostic Results Reviewed the following studies and agree with interpretation as follows: Patient Name: SAMANTHA LENTZ Unit Number: [id number] Dictated: 10/23/161214 Transcribed: 10/23/161214 [facility] Printed Date/Time: [~ rep prt dt]/[~ rep prt tm] [~ rep ct labl] - [~ rep ct ivnm] [facility] [place] [address] Dictated: 10/23/161214 Transcribed: 10/23/161214 [facility] Printed Date/Time: [~ rep prt dt]/[~ rep prt tm] [~ rep ct labl] - [~ rep ct ivnm] Patient: SAMANTHA LENTZ Address1: [address] [place] [address] Rec: [id number] Address2: Acct ID: [id number] [facility] Zip: [place] [address] Date: 1945 Sex: M Room/Bed: W251-1 Ref Phy: Cassius Decker M.D. SC: [id number] Att Phy: Kam Eisenberg MD, PhD Report #: [id number] Lupe Phy: Cassius Decker M.D. Test: APSTONE Admit Phy: Kam Eisenberg MD, PhD Clinical Engineering Director: JENISE Interpreting Phy: Malick Vital D.O. Diagnosis: HYDRONEPHROSIS Ordering Phy: Cb Ross MD Service Date: 10/23/16 Admit Date: 10/22/1708/03/17 MNE: [id number] CONF: DICTATED BY: Malick Vital D.O.]] CC: Cassius Decker M.D. Lin, Daniel Y., MD, PhD Cb Ross MD Endcc: [~ rep ct add3]] ABD/PELVIS WITHOUT FOR STONE HISTORY: 71 years-old Male nephrolithasis bilateral nephrolithiasis with acute left flank pain. Follow-up study. COMPARISON: Renal ultrasound 10/22/2016, CT abdomen and pelvis 07/26/2016. TECHNIQUE: Multiple axial CT images of the abdomen and pelvis were obtained without contrast. A dose lowering technique was used consistent with the principals of ALARA. FINDINGS: Lung bases are clear. Coronary arterial calcifications are noted. There is no pneumoperitoneum. The liver, spleen, and adrenal glands are within normal limits. There is moderate diffuse pancreatic atrophy. Gallbladder is unremarkable. Low attenuating lesions throughout the kidneys bilaterally suggests cysts. Bilateral nephrolithiasis is redemonstrated. There is mild left-sided hydroureteronephrosis secondary to a 7 x 5 x 6 mm calculus of the left ureteropelvic junction. Additionally, there is a 4 x 3 x 3 mm calculus of the distal left ureter just proximal to the ureterovesicular junction seen on image 337. Additionally, calculi layering within the dependent urinary bladder lumen also noted measuring up to 3 mm. Prostate is enlarged. Bilateral fat filled inguinal hernias are noted. There is mild plaquing of the abdominal aorta. No bulky retroperitoneal adenopathy. Small duodenal diverticulum. There is no bowel obstruction. No focal bowel wall thickening. The appendix appears normal. Soft tissues are unremarkable. Bones are intact. 5 mm sclerotic focus of the posterior right iliac wing is unchanged. IMPRESSION: 1. Mild left-sided hydroureteronephrosis secondary to 7 x 5 x 6 mm calculus of the left ureteropelvic junction. Additionally, there is an obstructing 4 x 3 x 3 mm calculus of the distal left ureter just proximal to the ureterovesicular junction. 2. Bilateral nephrolithiasis redemonstrated. Small layering calculi are seen within the dependent urinary bladder lumen. 3. Prostatomegaly. The above report was generated using voice recognition software. It may contain grammatical, syntax or spelling errors. Electronically signed by: Jed Vital M.D. 10/23/2016 12:33 PM Dictated Date/Time: 10/23/2016 12:15 PM The status of this report is Signed. Draft = Not yet reviewed or approved by Radiologist. Signed = Reviewed and approved by Radiologist. <AttendingPhy>Kam Eisenberg MD, PhD</AttendingPhy> <FamilyPhy>Cassius Decker M.D.</FamilyPhy> <PrimaryPhy>Cassius Decker M.D.</PrimaryPhy> <UnitNumber> [id number]</UnitNumber> <VisitNumber>[id number]</VisitNumber> <PatientName> SAMANTHA LENTZ</PatientName> <DateOfBirth>1945</DateOfBirth> <Location> C.MS2W</Location> <ServiceDate>10/22/16</ServiceDate> <MNE>ESINDI</MNE> < OrderingPhy>Cb Ross MD</OrderingPhy> <OrderingPhyMNE>f rep ord dr mtz</ OrderingPhyMNE> <DictatingPhyMNE>f rep dict dr mtz</DictatingPhyMNE> <CCListMNE> f rep ct mne</CCListMNE> <AdmittingPhyMNE>f pt admit dr mtz</AdmittingPhyMNE> < AttendingPhyMNE>f pt attend dr mtz</AttendingPhyMNE> <ConsultingPhyMNE>f pt consult dr mtz</ConsultingPhyMNE> <FamilyPhyMNE>f pt fam dr mtz</FamilyPhyMNE> <OtherPhyMNE>f pt other dr mtz</OtherPhyMNE> < PrimaryPhyMNE>f pt prim care dr mtz</PrimaryPhyMNE> <ReferringPhyMNE>f pt referring dr mtz</ReferringPhyMNE> (Sylvia Tavera ., PAFazal) Assessment and Plan 71 y/o male with a history of permanent a-fib on anticoagulation, HTN, HLD, CAD w/OR in 2003, h/o CVA 2010, dementia, and h/o bilateral nephrolithiasis who presents to the ED 10/22 with abdominal/back pain, chills, dysuria and hematuria. Bilateral nephrolithiasis w/left sided hydronephrosis--stable -Admit to med/surg -Renal US shows mild left hydronephrosis. No ureteral calculi identified although these are often occult by sonography. Extensive bilateral nephrolithiasis. -NSS at 100 cc/hr -Flomax 0.4 mg PO qhs -Strain urine. 1 stone passed in ED, sent for analysis -Urology consulted. Pt follows with Dr. Ross, appreciate recs: Still with intermittent pain, will order noncontrast CT. CT shows pt is actively passing stone, will make NPO after midnight and take to OR tomorrow morning. -NPO after midnight. Pre op EKG and CXR ordered per urology -CT abdomen/pelvis shows mild left-sided hydroureteronephrosis secondary to 7 x 5 x 6 mm calculus of the left ureteropelvic junction. Additionally, there is an obstructing 4 x 3 x 3 mm calculus of the distal left ureter just proximal to the ureterovesicular junction. Bilateral nephrolithiasis redemonstrated. Small layering calculi are seen within the dependent urinary bladder lumen. Prostatomegaly. -Morphine 2 mg IV q2h prn pain -Zofran 4 mg IV q4h prn nausea Permanent a-fib on anticoagulation--stable -INR still supratherapeutic at 3.5 on 10/23 -Give vitamin K 5 mg IV x1 due to procedure tomorrow -Continue to hold warfarin -Continue Lopressor 100 mg PO BID HTN, HLD, CAD, h/o OR and CVA--stable -Continue Lopressor as above and atorvastatin 40 mg PO qd Dementia -Continue Exelon 3 mg PO qd DVT prophylaxis -Hold chemical prophylaxis for stent tomorrow -SCDs Code Status -Level I, FULL RESUSCITATION STATUS (Sylvia Tavera ., PA-C) I agree with PA assessment and plan and have seen and examined pt myself VSSlabs reviewed Pain controlled CT abd/pelvis determined stone Urology consulted NPO after MN ofr intervention in AM (Gordon Villar, D.O.)
[2016-10-23 16:00] VITALS: O2SAT 94
[2016-10-23] MEDS: CIPROFLOXACIN / D5W 400 MG in PREMIXED IN D5W 200 ML IV SCH ×2 (16:20→20:51)
[2016-10-23] MEDS: MoRPHine SULFATE 2 MG/ML CARP IV PRN (18:16)
--- NOTE | 2016-10-23 19:53 | DIAGNOSTIC IMAGING REPORT ---
CHEST 1 VW FRONT-NOT PORTABLE HISTORY: 71 years-old Male pre op preoperative exam without acute chest complaints. Left hydroureteronephrosis with renal calculi. COMPARISON: CT abdomen and pelvis of same day, portable chest radiograph 05/25/2016 TECHNIQUE: Portable upright AP view of the chest FINDINGS: Cardiac silhouette is mildly enlarged. Pulmonary vascular congestion is noted without overt pulmonary edema. There is no pneumothorax or pleural effusion. Reticular nodular opacities of the right lung base are seen within a subsegmental distribution. The bones are grossly intact IMPRESSION: 1. Subsegmental reticular nodular opacities of the right lung base is suspicious for pneumonitis or atelectasis with background chronic interstitial changes. 2. Cardiomegaly with mild pulmonary vascular congestion. The above report was generated using voice recognition software. It may contain grammatical, syntax or spelling errors. Electronically signed by: Jed Vital M.D. 10/23/2016 7:52 PM Dictated Date/Time: 10/23/2016 7:50 PM
[2016-10-23] MEDS: CHOLECALCIFEROL 1000 INTER.UNIT TAB PO SCH (20:51)
[2016-10-23] MEDS: TAMSULOSIN HCL 0.4 MG CAP PO SCH (20:51)
[2016-10-23] MEDS: ATORVASTATIN 40 MG TAB PO SCH (20:51)
[2016-10-23 23:52] VITALS: BP 117/77; PULSE 91; TEMP 37; O2SAT 92
[2016-10-24] VITALS (14 sets, daily range): BP systolic 128–158; BP diastolic 65–100; PULSE 83–165; TEMP 36.6–37.5; O2SAT 92–99
[2016-10-24] MEDS: MoRPHine SULFATE 2 MG/ML CARP IV PRN ×2 (01:35→06:05)
[2016-10-24] MEDS: SODIUM CHLORIDE 0.9% 1000ML 1,000 ML IV SCH ×2 (01:35→12:46)
[2016-10-24 05:53] LABS: INR 1.4 (0.9-1.1); PROTHROMBIN TIME (PATIENT) 14.8 SECONDS (9.0-12.0)
[2016-10-24 06:13] LABS: BUN/CREATININE RATIO 17.4 (10-20); CALCIUM 8.2 mg/dl (8.5-10.1); CREATININE 1.3 mg/dl (0.60-1.40); HEMATOCRIT 35.8 % (42-52); MEAN CORPUSCULAR HEMOGLOBIN 31.2 pg (25-34); MEAN CORPUSCULAR HGB CONC 33.2 g/dl (32-36); MEAN PLATELET VOLUME 10.2 fL (7.4-10.4); PLATELET COUNT 103 K/uL (130-400); POTASSIUM 4.1 mmol/L (3.5-5.1); RED BLOOD COUNT 3.81 M/uL (4.7-6.1); WHITE BLOOD COUNT 7.93 K/uL (4.8-10.8)
[2016-10-24] MEDS ORDERED: NURSING VERBAL MED ORDER ONE (08:00)
[2016-10-24] MEDS: ASPIRIN 81 MG ECTAB PO SCH (08:05)
[2016-10-24] MEDS: METOPROLOL TARTRATE 100 MG TAB PO SCH ×3 (08:06→20:25)
[2016-10-24] MEDS: RIVASTIGMINE TARTRATE (EXELON) 1.5 MG CAP PO SCH (08:06)
[2016-10-24] MEDS: CIPROFLOXACIN / D5W 400 MG in PREMIXED IN D5W 200 ML IV SCH ×2 (08:11→21:02)
[2016-10-24] MEDS ORDERED: HYDROmorphone INJ 1 MG/ML SYR IV SCH (08:15)
--- NOTE | 2016-10-24 09:21 | Progress Note ---
Progress Note Date of Service Oct 24, 2016. Progress Note Patient is afebrile vital signs are stable Continues to have left flank pain on and off No nausea or vomiting Does not think he passed the stone Exam- Abdomen soft Extremities without calf pain or tenderness Discussed with the patient and his since he continues to have pain HE should at least have a stent placed on the left side He does have a distal left stone which may be amenable to ureteroscopy I went over the procedure with the patient and his they agreed to proceed.
--- NOTE | 2016-10-24 11:13 | Hospitalist Progress Note ---
Hospitalist Progress Note Date of Service Oct 24, 2016. (Sylvia Tavera ., MEL) Subjective Pt evaluation today including: conversation w/ patient, physical exam, chart review, lab review, review of studies, review of inpatient medication list Voiding: no voiding problems Patient denies any abdominal pain at the moment. He seems a little confused today after receiving Dilaudid. Per , the patient had been having worsening pain, so he was given one dose of Dilaudid this morning. The patient also developed a-fib with RVR this morning due to his NPO status and did not receive morning Lopressor. The patient reports intermittent shortness of breath but denies any at the moment. The patient denies fevers, chills, sweats , chest pain, palpitations, claudication, cough, wheezing, shortness of breath, nausea, vomiting, abdominal pain, dysuria, hematuria, urinary retention, paralysis, weakness, numbness and tingling. Additional Comments: See HPI for pertinent positives and negatives. All other systems reviewed and negative. (Sylvia Tavera ., SHAYEC) Objective Vital Signs Date Time Temp Pulse Resp B/P (MAP) Pulse Ox O2 Delivery O2 Flow Rate FiO2 10/24/16 09:58 36.9 144 20 128/87 (101) 92 Room Air 10/24/16 08:00 92 Room Air 10/24/16 06:53 37.1 95 18 142/95 (111) 92 Room Air 10/24/16 00:00 Room Air 10/23/16 23:52 37.0 91 18 117/77 (90) 92 Room Air 10/23/16 16:00 94 Room Air 10/23/16 15:22 36.8 111 18 131/90 (104) 94 Room Air (Sylvia Tavera PA-C) Physical Exam Notes: General appearance: Well-developed, well-nourished, no apparent distress Head: Normocephalic, atraumatic Eyes: Normal inspection, PERRL, EOMI ENT: Normal ENT inspection, hearing grossly normal, pharynx normal Neck: Supple, no JVD, trachea midline Respiratory/Chest: Lungs clear to auscultation, normal breath sounds, no respiratory distress Cardiovascular: +Irregularly irregular. Regular rate, no gallop, no murmur Abdomen/GI: +Left flank TTP. Normal bowel sounds, soft Extremities/Musculoskeletal: Normal inspection, no calf tenderness, no pedal edema Neurological/Psych: +Slightly confused, had some trouble providing ROS but oriented x 3. Alert, normal mood/affect, oriented x 3 Skin: Normal color, warm/dry, no rash (Sylvia Tavera ., PA-C) Laboratory Results Last 24 Hours Test 10/24/16 05:11 White Blood Count 7.93 K/uL Red Blood Count 3.81 M/uL Hemoglobin 11.9 g/dL Hematocrit 35.8 % Mean Corpuscular Volume 94.0 fL Mean Corpuscular Hemoglobin 31.2 pg Mean Corpuscular Hemoglobin Concent 33.2 g/dl RDW Standard Deviation 51.3 fL RDW Coefficient of Variation 15.0 % Platelet Count 103 K/uL Mean Platelet Volume 10.2 fL Prothrombin Time 14.8 SECONDS Prothromb Time International Ratio 1.4 Sodium Level 139 mmol/L Potassium Level 4.1 mmol/L Chloride Level 108 mmol/L Carbon Dioxide Level 23 mmol/L Anion Gap 8.0 mmol/L Blood Urea Nitrogen 23 mg/dl Creatinine 1.30 mg/dl Est Creatinine Clear Calc Drug Dose 60.8 ml/min Estimated GFR () 64.1 Estimated GFR (Non- 55.3 BUN/Creatinine Ratio 17.4 Random Glucose 104 mg/dl Calcium Level 8.2 mg/dl (Sylvia Tavera ., PA-C) Assessment and Plan 71 y/o male with a history of permanent a-fib on anticoagulation, HTN, HLD, CAD w/MD in 2003, h/o CVA 2010, dementia, and h/o bilateral nephrolithiasis who presents to the ED 10/22 with abdominal/back pain, chills, dysuria and hematuria. Bilateral nephrolithiasis w/left sided hydronephrosis--stable -Admit to med/surg -Renal US shows mild left hydronephrosis. No ureteral calculi identified although these are often occult by sonography. Extensive bilateral nephrolithiasis. -NSS at 100 cc/hr -Flomax 0.4 mg PO qhs -Strain urine. 1 stone passed in ED, sent for analysis -Urology consulted, appreciate recs: Plan to be taken to OR today, is add on case so likely in afternoon. -Pre op CXR shows some mild pulmonary vascular congestion, atelectasis in RLL -Would avoid further Dilaudid -CT abdomen/pelvis shows mild left-sided hydroureteronephrosis secondary to 7 x 5 x 6 mm calculus of the left ureteropelvic junction. Additionally, there is an obstructing 4 x 3 x 3 mm calculus of the distal left ureter just proximal to the ureterovesicular junction. Bilateral nephrolithiasis redemonstrated. Small layering calculi are seen within the dependent urinary bladder lumen. Prostatomegaly. -Morphine 2 mg IV q2h prn pain -Zofran 4 mg IV q4h prn nausea Permanent a-fib on anticoagulation--a-fib with RVR yesterday afternoon/this morning, rate seems improved now -INR supratherapeutic at 3.5 on 10/23 -Give vitamin K 5 mg IV x1 due to procedure -INR 1.4 on 10/24 -Continue to hold warfarin -Continue Lopressor 100 mg PO BID -Pre op EKG 167 bpm, a-fib with RVR -Pt remained in RVR this am d/t NPO status and not receiving home Lopressor. Given 1 dose Lopressor 100 mg PO with sip of water -Repeat EKG stat reveals still in RVR with HR 165 -Transfer to tele -Lopressor 5 mg IV x 1 stat, 5 mg q15m prn HR >120. Try 3 more doses, if rate not controlled may need to start drip HTN, HLD, CAD, h/o MD and CVA--stable -Continue Lopressor as above and atorvastatin 40 mg PO qd Dementia -Continue Exelon 3 mg PO qd DVT prophylaxis -Hold chemical prophylaxis for procedure -SCDs Code Status -Level I, FULL RESUSCITATION STATUS (Sylvia Tavera ., PA-C) I agree with PA assessment and plan and have seen and examined pt myself Resting comfortably in bed Noted to be in afib with RVR metoprolol added again Transferred to tele To OR this afternoon Appreciate urology recs (Gordon Villar D.O.)
[2016-10-24] MEDS ORDERED: METOPROLOL TARTRATE 1 MG/ML VIAL IV STA (11:21)
[2016-10-24] MEDS: METOPROLOL TARTRATE 1 MG/ML VIAL IV PRN ×3 (12:53→13:47)
--- NOTE | 2016-10-24 13:07 | Clinical Documentation Query ---
CLINICAL DOCUMENTATION QUERY 71 yo male began to experience left-sided abdominal and back pain last week. GO was listed as a diagnosis in the initial H&P, but has since fallen off the documentation trail. In order for coding to be able to use this diagnosis, please review the following: In your clinical opinion is this patient being managed for: (X ) Acute kidney failure, in the setting of left ureteral stone and dehydration, treated and resolved ( ) Not Agree IF IN AGREEMENT, YOU MUST DOCUMENT ABOVE DIAGNOSTIC STATEMENT IN DAILY PROGRESS NOTES AND DISCHARGE SUMMARY. This document is not part of the patient's record. Thank You, Jennifer Erickson RN [phone]
[2016-10-24] MEDS ORDERED: DILTIAZEM BOLUS / DRIP IV STA (14:16)
[2016-10-24] MEDS ORDERED: PHYTONADIONE INJ 5 MG in SODIUM CHLORIDE 0.9% 50ML 50 ML IV ONE ×2 (14:30→15:30)
[2016-10-24] MEDS ORDERED: DILTIAZEM HCL 5 MG/ML 5 ML VIAL IV SCH (14:45)
[2016-10-24] MEDS: DILTIAZEM HCL INJ 125 MG in DEXTROSE 5% 100ML IV PRN ×2 (15:06→21:15)
--- NOTE | 2016-10-24 15:34 | History & Physical Bridge Note ---
H&P Re-Evaluation Bridge Note: I have examined the patient, reviewed the History & Physical and in the interval since the performance of the History & Physical I have noted the following changes of clinical significance: No changes noted Plan for cysto, left ureteral stent insertion.
[2016-10-24] MEDS ORDERED: MIDAZOLAM HCL 1 MG/ML 2ML VIAL ONE (15:35)
[2016-10-24] MEDS ORDERED: FENTANYL CITRATE INJ 50 MCG/1 ML 2 ML VIAL ONE (15:35)
[2016-10-24] MEDS ORDERED: LIDOCAINE HCL 2% 2 ML VIAL (20MG/ML) ONE (15:35)
[2016-10-24] MEDS ORDERED: PROPOFOL IV EMULSION 10 MG/ML 20 ML VIAL IV ONE (15:35)
[2016-10-24] MEDS ORDERED: ATROPINE SULFATE 0.1 MG/ML 5ML SYR IV PRN (16:00)
[2016-10-24] MEDS ORDERED: EpHEDrine SULFATE INJ 50 MG/ML AMP IV PRN (16:00)
[2016-10-24] MEDS ORDERED: CONRAY 30% 150ML BOTTLE ONE (16:00)
--- NOTE | 2016-10-24 16:32 | [facility] Operative Report ---
Operative Report Operative Date Oct 24, 2016. Pre-Operative Diagnosis Left distal ureteral stone Post-Operative Diagnosis Left distal ureteral stone Procedure(s) Performed Cystoscopy Left Stent Placement ([id number]), Retrograde Pyelogram Surgeon Dr. Godinez Delicatessen Slicer Surgeon(s) none Estimated Blood Loss 0 cc Findings Distal left ureteral stone; proximal left ureteral stone Specimens none per surgeon Drains [id number] Anesthesia MAC Complication(s) None Disposition Recovery Room / PACU (stable) Indications Left hydronephrosis; left ureteral stones 2 Description of Procedure Patient was identified in the preoperative holding area, appropriate informed consent reviewed and completed, and the patient was transported to the operating suite. Of note he received ciprofloxacin on the floor prior to transported to the operating suite. Adequate sedation was achieved, and the patient was placed in dorsal lithotomy position where he was sterilely prepped and draped in standard fashion. I begin the case by passing a 22 Czech cystoscope with 30 lens. Inspection of the bladder revealed no evidence of stones within the bladder nor bladder tumors. He additionally had no urethral strictures and a moderately enlarged prostate. After full inspection was carried out, I turned my attention to the left ureteral orifice and cannulated it with a sensor wire. This wire advanced the kidney without difficulty. A 10 Czech double-lumen catheter was advanced over the wire and into the distal ureter. Retrograde pyelogram was performed which revealed mild hydronephrosis and appropriate upper pole position of the wire. A [id number] double-J ureteral stent was placed, with a good curl observed in the kidney as well as the bladder. Bladder was decompressed and the case concluded. Patient was reversed from anesthesia and taken to the PACU in stable condition. I attest to the content of the Intraoperative Record and any orders documented therein. Any exceptions are noted below.
--- NOTE | 2016-10-24 16:45 | Anesthesiology Progress Note ---
Anesthesia Post Op Note Date & Time Oct 24, 2016 at 16:45 Vital Signs Pain Intensity: 0 Vital Signs Past 12 Hours Date Time Temp Pulse Resp B/P (MAP) Pulse Ox O2 Delivery O2 Flow Rate FiO2 10/24/16 16:35 102 20 133/81 98 Oxymask 10 10/24/16 16:25 92 21 130/80 98 Oxymask 10 10/24/16 16:18 36.3 88 22 120/73 95 Oxymask 10 10/24/16 16:09 37.1 95 20 130/90 (103) 93 Room Air 10/24/16 15:25 37.1 98 18 138/100 (113) 95 Room Air 10/24/16 13:47 140 134/95 10/24/16 13:26 130 122/66 10/24/16 12:53 150 122/66 10/24/16 12:34 160 149/88 10/24/16 12:23 37.5 94 20 149/88 (108) 96 Room Air 10/24/16 12:03 36.6 165 20 92 10/24/16 09:58 36.9 144 20 128/87 (101) 92 Room Air 10/24/16 08:00 92 Room Air 10/24/16 06:53 37.1 95 18 142/95 (111) 92 Room Air Notes Mental Status: alert / awake / arousable, participated in evaluation Pt Amnestic to Procedure: Yes Nausea / Vomiting: adequately controlled Pain: adequately controlled Airway Patency, RR, SpO2: stable & adequate BP & HR: stable & adequate Hydration State: stable & adequate Anesthetic Complications: no major complications apparent
[2016-10-24] MEDS: CHOLECALCIFEROL 1000 INTER.UNIT TAB PO SCH (20:25)
[2016-10-24] MEDS: ATORVASTATIN 40 MG TAB PO SCH (20:26)
[2016-10-24] MEDS: TAMSULOSIN HCL 0.4 MG CAP PO SCH (20:26)
[2016-10-25] VITALS (9 sets, daily range): BP systolic 124–174; BP diastolic 83–98; PULSE 73–138; TEMP 36.6–37.1; O2SAT 95–99
[2016-10-25] MEDS: DILTIAZEM HCL INJ 125 MG in DEXTROSE 5% 100ML IV PRN ×3 (02:25→19:13)
[2016-10-25 06:47] LABS: MEAN CELL VOLUME 92.5 fL (80-100); MEAN CORPUSCULAR HGB CONC 33.5 g/dl (32-36); PLATELET COUNT 122 K/uL (130-400); WHITE BLOOD COUNT 6.41 K/uL (4.8-10.8)
[2016-10-25 07:05] LABS: INR 1.2 (0.9-1.1); PROTHROMBIN TIME (PATIENT) 12.7 SECONDS (9.0-12.0)
[2016-10-25 07:21] LABS: BUN/CREATININE RATIO 16.9 (10-20); POTASSIUM 3.8 mmol/L (3.5-5.1)
[2016-10-25] MEDS ORDERED: METOPROLOL TARTRATE 1 MG/ML VIAL IV STA (07:25)
--- NOTE | 2016-10-25 07:40 | Clinical Documentation Query ---
CLINICAL DOCUMENTATION QUERY 71 yo male began to experience left-sided abdominal and back pain last week. GO was listed as a diagnosis in the initial H&P, but has since fallen off the documentation trail. In order for coding to be able to use this diagnosis, please review the following: In your clinical opinion is this patient being managed for: ( x ) Acute kidney failure, in the setting of left ureteral stone and dehydration, treated and resolved ( ) Not Agree IF IN AGREEMENT, YOU MUST DOCUMENT ABOVE DIAGNOSTIC STATEMENT IN DAILY PROGRESS NOTES AND DISCHARGE SUMMARY. This document is not part of the patient's record. Thank You, Jennifer Erickson RN [phone]
[2016-10-25] MEDS: RIVASTIGMINE TARTRATE (EXELON) 1.5 MG CAP PO SCH (07:55)
[2016-10-25] MEDS: METOPROLOL TARTRATE 100 MG TAB PO SCH ×2 (07:55→20:53)
[2016-10-25] MEDS: ASPIRIN 81 MG ECTAB PO SCH (07:55)
[2016-10-25] MEDS: CIPROFLOXACIN / D5W 400 MG in PREMIXED IN D5W 200 ML IV SCH ×2 (08:20→20:53)
--- NOTE | 2016-10-25 08:27 | Anesthesiology Progress Note ---
Anesthesia Post Op Note Date & Time Oct 25, 2016 at 08:26 Vital Signs Pain Intensity: 0.0 Vital Signs Past 12 Hours Date Time Temp Pulse Resp B/P (MAP) Pulse Ox O2 Delivery O2 Flow Rate FiO2 10/25/16 07:54 150 145/95 10/25/16 07:44 36.9 116 20 148/83 (104) 97 Room Air 10/25/16 07:30 Room Air 10/25/16 05:40 138 18 146/91 (109) 10/25/16 04:11 37.0 120 18 153/98 (116) 97 10/25/16 04:00 99 Nasal Cannula 2.0 10/25/16 00:06 36.9 89 17 124/84 (97) 97 Room Air 10/24/16 23:59 Room Air 10/24/16 23:00 99 Nasal Cannula 2.0 10/24/16 21:15 102 18 133/67 (89) Notes Mental Status: alert / awake / arousable, participated in evaluation Pt Amnestic to Procedure: Yes Nausea / Vomiting: adequately controlled Pain: adequately controlled Airway Patency, RR, SpO2: stable & adequate BP & HR: stable & adequate Hydration State: stable & adequate Anesthetic Complications: no major complications apparent
--- NOTE | 2016-10-25 08:32 | Progress Note ---
Progress Note Date of Service Oct 25, 2016. Progress Note S: tolerated stent placement very well - still with afib/RVR - no major issues post op O: Vital Signs Past 12 Hours Date Time Temp Pulse Resp B/P (MAP) Pulse Ox O2 Delivery O2 Flow Rate FiO2 10/25/16 07:54 150 145/95 10/25/16 07:44 36.9 116 20 148/83 (104) 97 Room Air 10/25/16 07:30 Room Air 10/25/16 05:40 138 18 146/91 (109) 10/25/16 04:11 37.0 120 18 153/98 (116) 97 10/25/16 04:00 99 Nasal Cannula 2.0 10/25/16 00:06 36.9 89 17 124/84 (97) 97 Room Air 10/24/16 23:59 Room Air 10/24/16 23:00 99 Nasal Cannula 2.0 10/24/16 21:15 102 18 133/67 (89) 10/25/16 06:33 10/25/16 06:33 Test 10/25/16 06:33 Red Blood Count 4.00 M/uL (4.7-6.1) Mean Corpuscular Volume 92.5 fL (80-100) Mean Corpuscular Hemoglobin 31.0 pg (25-34) Mean Corpuscular Hemoglobin Concent 33.5 g/dl (32-36) RDW Standard Deviation 50.3 fL (36.4-46.3) RDW Coefficient of Variation 14.7 % (11.5-14.5) Mean Platelet Volume 10.0 fL (7.4-10.4) Prothrombin Time 12.7 SECONDS (9.0-12.0) Prothromb Time International Ratio 1.2 (0.9-1.1) Anion Gap 7.0 mmol/L (3-11) Est Creatinine Clear Calc Drug Dose 79.3 ml/min Estimated GFR () 88.0 Estimated GFR (Non- 75.9 BUN/Creatinine Ratio 16.9 (10-20) Calcium Level 9.0 mg/dl (8.5-10.1) NAD abd soft tachy A/p: POD #1 s/p cysto, left ureteral stent - cr has improved - stable from standpoint - will need outpt f/u for definitive stone treatment
--- NOTE | 2016-10-25 10:54 | Hospitalist Progress Note ---
Hospitalist Progress Note Date of Service Oct 25, 2016. (Sylvia Tavera ., SHAYEC) Subjective Pt evaluation today including: conversation w/ patient, physical exam, chart review, lab review, review of inpatient medication list Pain: None PO Intake: Tolerating PO diet Voiding: no voiding problems Patient reports feeling well. He underwent cystoscopy with left ureteral stent placement yesterday with Dr. Godinez, which he tolerated well. He denies any abdominal/flank pain today. He is eating well and urinating without difficulty. The patient denies fevers, chills, sweats, chest pain, palpitations , claudication, cough, wheezing, shortness of breath, nausea, vomiting, abdominal pain, dysuria, hematuria, urinary retention, paralysis, weakness, numbness and tingling. Additional Comments: See HPI for pertinent positives and negatives. All other systems reviewed and negative. (Sylvia Tavera ., STEPH-C) Objective Vital Signs Date Time Temp Pulse Resp B/P (MAP) Pulse Ox O2 Delivery O2 Flow Rate FiO2 10/25/16 07:54 150 145/95 10/25/16 07:44 36.9 116 20 148/83 (104) 97 Room Air 10/25/16 07:30 Room Air 10/25/16 05:40 138 18 146/91 (109) 10/25/16 04:11 37.0 120 18 153/98 (116) 97 10/25/16 04:00 99 Nasal Cannula 2.0 10/25/16 00:06 36.9 89 17 124/84 (97) 97 Room Air 10/24/16 23:59 Room Air 10/24/16 23:00 99 Nasal Cannula 2.0 10/24/16 21:15 102 18 133/67 (89) 10/24/16 20:00 Room Air 10/24/16 19:51 36.8 85 20 157/91 (113) 97 Nasal Cannula 2.0 10/24/16 18:00 132 158/100 (119) 10/24/16 17:30 129 138/96 (110) 10/24/16 17:19 83 138/96 (110) 10/24/16 17:04 36.9 95 16 135/81 (99) 96 Nasal Cannula 2.0 10/24/16 17:00 99 Nasal Cannula 2.0 10/24/16 16:45 37 102 20 137/99 99 Nasal Cannula 2 10/24/16 16:35 102 20 133/81 98 Oxymask 10 10/24/16 16:25 92 21 130/80 98 Oxymask 10 10/24/16 16:18 36.3 88 22 120/73 95 Oxymask 10 10/24/16 16:09 37.1 95 20 130/90 (103) 93 Room Air 10/24/16 15:25 37.1 98 18 138/100 (113) 95 Room Air 10/24/16 13:47 140 134/95 10/24/16 13:26 130 122/66 10/24/16 12:53 150 122/66 10/24/16 12:34 160 149/88 10/24/16 12:23 37.5 94 20 149/88 (108) 96 Room Air 10/24/16 12:03 36.6 165 20 92 (Sylvia Tavera ., PA-C) Physical Exam Notes: General appearance: Well-developed, well-nourished, no apparent distress Head: Normocephalic, atraumatic Eyes: Normal inspection, PERRL, EOMI ENT: Normal ENT inspection, hearing grossly normal, pharynx normal Neck: Supple, no JVD, trachea midline Respiratory/Chest: Lungs clear to auscultation, normal breath sounds, no respiratory distress Cardiovascular: +Irregularly irregular, tachycardic. No gallop, no murmur Abdomen/GI: +Left flank TTP. Normal bowel sounds, soft Extremities/Musculoskeletal: Normal inspection, no calf tenderness, no pedal edema Neurological/Psych: Alert, normal mood/affect, oriented x 3 Skin: Normal color, warm/dry, no rash (Sylvia Tavera ., PA-C) Laboratory Results Last 24 Hours Test 10/25/16 06:33 White Blood Count 6.41 K/uL Red Blood Count 4.00 M/uL Hemoglobin 12.4 g/dL Hematocrit 37.0 % Mean Corpuscular Volume 92.5 fL Mean Corpuscular Hemoglobin 31.0 pg Mean Corpuscular Hemoglobin Concent 33.5 g/dl RDW Standard Deviation 50.3 fL RDW Coefficient of Variation 14.7 % Platelet Count 122 K/uL Mean Platelet Volume 10.0 fL Prothrombin Time 12.7 SECONDS Prothromb Time International Ratio 1.2 Sodium Level 139 mmol/L Potassium Level 3.8 mmol/L Chloride Level 107 mmol/L Carbon Dioxide Level 25 mmol/L Anion Gap 7.0 mmol/L Blood Urea Nitrogen 17 mg/dl Creatinine 1.00 mg/dl Est Creatinine Clear Calc Drug Dose 79.3 ml/min Estimated GFR () 88.0 Estimated GFR (Non- 75.9 BUN/Creatinine Ratio 16.9 Random Glucose 104 mg/dl Calcium Level 9.0 mg/dl (Sylvia Tavera PA-C) Assessment and Plan 71 y/o male with a history of permanent a-fib on anticoagulation, HTN, HLD, CAD w/ND in 2003, h/o CVA 2010, dementia, and h/o bilateral nephrolithiasis who presents to the ED 10/22 with abdominal/back pain, chills, dysuria and hematuria. Bilateral nephrolithiasis w/left sided hydronephrosis--stable -Admit to med/surg. Transferred to tele as below -Renal US shows mild left hydronephrosis. No ureteral calculi identified although these are often occult by sonography. Extensive bilateral nephrolithiasis. -IVF d/c'd -Flomax 0.4 mg PO qhs -Strain urine. 1 stone passed in ED, sent for analysis -Urology consulted, appreciate recs: Cystoscopy with left stent placement and retrograde pyelogram on 10/24. Pt will need outpatient follow up for definitive stone treatment. -Pre op CXR shows some mild pulmonary vascular congestion, atelectasis in RLL -Would avoid further Dilaudid -CT abdomen/pelvis shows mild left-sided hydroureteronephrosis secondary to 7 x 5 x 6 mm calculus of the left ureteropelvic junction. Additionally, there is an obstructing 4 x 3 x 3 mm calculus of the distal left ureter just proximal to the ureterovesicular junction. Bilateral nephrolithiasis redemonstrated. Small layering calculi are seen within the dependent urinary bladder lumen. Prostatomegaly. -Morphine 2 mg IV q2h prn pain -Zofran 4 mg IV q4h prn nausea GO secondary to ureteral stones, hydronephrosis and dehydration--resolved -Creatinine 1.00 on 10/25, at baseline -IVF d/c'd A-fib with RVR--ongoing -Transferred to [facility] 10/24. Pt remained in a-fib with RVR with HR up to 180s. Pt received 1 dose Lopressor 5 mg IV x1 this morning which did improve rate to 110s-120s -Continue Lopressor 100 mg PO BID -Diltiazem drip initiated 10/24. Reached maximum titration at 15 mg/hr -Cardiology consulted, appreciate recs: Pt had previously done well on digoxin and metoprolol but dig had been discontinued due to bradycardia and fatigue. Will load with digoxin and then resume dig at a lower dose than previous. Wean dilt drip. Bridge with heparin drip/warfarin if hematuria stable. -Digoxin 500 mcg IV x 1, then 250 IV q6h x 2 bags -Echo ordered -INR 1.2 on 10/25 -Start heparin drip w/o bolus -Start warfarin 5 mg PO qd, higher than home dose due to recent vitamin K administration on 10/23 in preparation for cystoscopy HTN, HLD, CAD, h/o ND and CVA--stable -Continue Lopressor as above and atorvastatin 40 mg PO qd Dementia -Continue Exelon 3 mg PO qd DVT prophylaxis -Heparin drip -SCDs Code Status -Level I, FULL RESUSCITATION STATUS (Sylvia Tavera ., PA-C) I agree with STEPH assessment and plan and have seen and examined pt Afib with RVR Labs reviewed No distress noted Cont dilt and load with dig at this time in addition to BB Resume AC Appreciate urology and cardiology recs (Gordon Villar, D.O.)
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
[2016-10-25] MEDS ORDERED: DIGOXIN IV 500 MCG in SYRINGE 8 ML IV ONE (11:15)
[2016-10-25 12:41] LABS: BASO % 0.3 %; BASO ABS # 0.02 K/uL (0-0.2); EOS % 2.1 %; HEMATOCRIT 37.4 % (42-52); IG% 0.3 %; LYMPH % 18.8 %; LYMPH ABS # 1.27 K/uL (1.2-3.4); MEAN CELL VOLUME 93.3 fL (80-100); MEAN CORPUSCULAR HEMOGLOBIN 31.2 pg (25-34); MEAN PLATELET VOLUME 9.9 fL (7.4-10.4); MONO % 10.1 %; NEUT % 68.4 %; PLATELET COUNT 140 K/uL (130-400); RED BLOOD COUNT 4.01 M/uL (4.7-6.1); WHITE BLOOD COUNT 6.76 K/uL (4.8-10.8)
[2016-10-25 12:45] LABS: COMPLETE YES; MEAN CORPUSCULAR HGB CONC 33.4 g/dl (32-36)
[2016-10-25 12:49] LABS: INR 1.2 (0.9-1.1); PARTIAL THROMBOPLASTIN RATIO 1.1; PROTHROMBIN TIME (PATIENT) 12.8 SECONDS (9.0-12.0)
[2016-10-25] MEDS: HEPARIN 25,000 UNIT/500ML D5W 500 ML IV PRN (13:10)
--- NOTE | 2016-10-25 14:25 | CARDIOLOGY CONSULTATION ---
DATE OF CONSULTATION: 10/25/2016 TIME: 13:17 p.m. ORDERING PHYSICIAN: Dr. Villar. REASON FOR CONSULTATION: Atrial fibrillation with rapid ventricular response. HISTORY OF PRESENT ILLNESS: Mr. Krishnan is a pleasant 71-year-old gentleman with a history significant for CAD, status post LAD PCI, hypertension, dyslipidemia, permanent atrial fibrillation on anticoagulation therapy, dementia, and type 2 diabetes. He also has pulmonary nodule. He is followed by Dr. Diallo at [facility] for his cardiology issues. He was admitted on 10/22/2016 and apparently had complained of left abdominal/flank pain. He was found to have left-sided hydroureteronephrosis with nephrolithiasis and obstructing calculus. He underwent cystoscopy and stent placement in his left ureter yesterday, 10/24/2016. His heart rate upon admission was noted to be tachycardic mostly, occasionally would improve down into the 90s according to the nursing records, but he has been significantly tachycardic for the much of the time. He has been maintained on his metoprolol 100 mg twice daily. In the past, he was on digoxin 250 mcg daily, but this was discontinued in February as an outpatient for concerns of bradycardia. There is no ECG with significant bradycardia, but his heart rate in the office that day was 63 beats per minute and he had been complaining of fatigue. His primary hvac sheet metal installer helper, Dr. Diallo at [facility], had mentioned potentially decreasing some of his rate controlling medications, but did not do so at that time in February of 2015, After discontinuing digoxin, his documented heart rates in the office were 67-89 beats per minute. He denies chest pain, shortness of breath, palpitations, syncope, near syncope, edema melena or hematochezia. He did have some hematuria stating that his urine was pink earlier today. He does have dementia and therefore, some of his history may be poor, but he denies any significant symptoms currently other than some left-sided abdominal pain, which is improved overall from presentation. REVIEW OF SYSTEMS: As above and review of systems is otherwise negative/unremarkable or unobtainable due to the patient's degree of dementia. PAST MEDICAL HISTORY: 1. Permanent atrial fibrillation on anticoagulation therapy. 2. Coronary artery disease status post LAD PCI in 2003. Last cardiac catheterization on 08/21/2008 demonstrating patent mid LAD stent followed by 30% mid LAD stenosis. Proximal RCA 30%. Very small OM1 branch with 90% stenosis. EF 70% on LV gram. 3. Stroke in 2010. 4. Hypertension. 5. Dementia. 6. Dyslipidemia. 7. Nephrolithiasis. 8. Type 2 diabetes. 9. Pulmonary nodule. 10. BPH. HOME MEDICATIONS: Include aspirin 81 mg daily, lisinopril 10 mg daily, metoprolol 100 mg twice daily, rivastigmine 3 mg daily, and Coumadin 2 mg daily. INPATIENT MEDICATIONS: Include diltiazem drip at 15 mg per hour, metoprolol tartrate 100 mg twice daily, Lipitor 40 mg at bedtime, rivastigmine 3 mg daily, aspirin 81 mg daily, and ciprofloxacin 400 mg IV q. 12 hours. ALLERGIES: ADHESIVES. SOCIAL HISTORY: No smoking. Rare alcohol. No drugs. Lives at home with his . Retired from [employer]. One daughter. No grandchildren. FAMILY HISTORY: Father in his 70s from stroke. Mother in 70s. She apparently had a myocardial infarction at some point in her life. PHYSICAL EXAMINATION: VITAL SIGNS: Temperature 37.1 degrees, heart rate was 150 beats per minute, respiratory rate 20, blood pressure 145/95 mmHg, and oxygen saturation 97% on room air. Weight 91 kilograms. I's and O's negative 140 mL. GENERAL: No acute distress. He is alert and oriented to self and place. He did not know the year and he cannot remember his 's name. HEENT: Anicteric sclerae. NECK: No appreciable JVD. No bruits. Normal carotid upstrokes bilaterally. CARDIAC EXAMINATION: PMI was nondisplaced. There was no ventricular heave. Irregularly irregular, normal S1 and S2. There were no audible murmurs, rubs or gallops. LUNGS: There were bibasilar crackles initially, but these cleared after coughing. Otherwise, lungs are clear. ABDOMEN: Soft and nondistended. Normoactive bowel sounds. There was mild diffuse tenderness throughout, but no rebound tenderness and no bruits noted. EXTREMITIES: Have no significant edema. No cyanosis. 2+ radial pulses bilaterally. 1+ dorsalis pedis pulse bilaterally. No palpable cords. PSYCHIATRIC: Affect is appropriate. Telemetry personally reviewed. Atrial fibrillation with rapid ventricular response. ECG on 10/23/2016 at /19:39 personally reviewed. Atrial fibrillation with rapid ventricular response at [address] and T-wave abnormality, consider lateral ischemia. Repeat ECG on 10/24/2016 at 11:11 a.m. AFib at 165 beats per minute. Cardiac catheterization report reviewed as noted above. ECHO: He apparently had an echo in [address] Diallo' cardiology outpatient note. The echo in 2015 reportedly demonstrated normal EF with mild to moderate MR and mild pulmonary hypertension. CT scan of the abdomen and pelvis from 10/23/2016 reported mild left-sided hydroureteronephrosis due to 7 x 5 x 6-mm calculous of left ureteropelvic junction. Another obstructing calculus at the distal left ureter, proximal to the ureterovesicular junction. Bilateral nephrolithiasis. LABORATORY DATA: White blood cell count 6.76, hemoglobin 12.5, and platelets 140. Sodium 139, potassium 3.8, BUN 17, and creatinine 1. INR 1.2. ASSESSMENT AND PLAN: 1. Atrial fibrillation with rapid ventricular response: He reportedly has permanent atrial fibrillation and ECGs done in the outpatient setting dating back to 01/20/2011 do demonstrate atrial fibrillation. He has been more tachycardic during this hospitalization, which may be related to his acute issue and post-procedural state; however, he was tachycardic upon presentation as well. Recommend restarting digoxin, which apparently he did well within the past. There was a concern for some bradycardia and fatigue in February of 2016; however, we may be able to use a lower dose of digoxin. If he demonstrates significant bradycardia, would then consider further treatment/evaluation for tachybrady syndrome. Continue beta giovany at current dose. The digoxin loading would be 500 mcg digoxin IV x1 followed by 250 mcg IV q. 6 hours x2 doses. We will then reassess tomorrow for standing dose of digoxin. Can also further titrate beta giovany if need be, but we will hold off for now given the fact that he is historically did well on digoxin and metoprolol 100 mg twice daily. Recommend restarting Coumadin today. This was discussed with the hospitalist service, Sylvia Tavera, physician multimedia assistant. If okay from a surgical standpoint, recommend starting heparin drip. 2. Coronary artery disease: No angina. Continue antiplatelet therapy. Continue high intensity statin therapy. He is status post mid LAD PCI. 3. Mitral regurgitation: There are plans for another outpatient echo coordinating to Dr. Diallo' note; however, it appears as though there is an echo pending for this hospitalization as ordered by the hospitalist service. No significant findings on exam to suggest hemodynamically significant mitral regurgitation at this point. 4. Hypertension: His blood pressure has been normotensive to mildly hypertensive. Some of this may be pain related. Can titrate medications if appropriate. He was on lisinopril as an outpatient; however, this was held likely secondary to the fact that he had acute renal insufficiency. This can be restarted when okay from the hospitalist service. 5. Disposition: Cardiology will continue to follow. Plan of care discussed with primary hospitalist service. Thank you for allowing me to participate in care of Mr. Krishnan. Sincerely,
[2016-10-25] MEDS ORDERED: PERFLUTREN LIPID MICROSPHERE (DEFINITY) IV ONE (15:16)
[2016-10-25] MEDS: WARFARIN SOD 5 MG TAB PO SCH (17:15)
--- NOTE | 2016-10-25 18:15 | ECHOCARDIOGRAM REPORT ---
*NOTICE TO RECEIVING CONSTITUTION PARTY AGENCY This information is strictly Confidential and protected under [place] law. [place] law prohibits you from making any further disclosure of this information unless further disclosure is expressly permitted by the written consent of the person to whom it pertains or is authorized by law. A general authorization for the release of medical or other information is not sufficient for this purpose. Hospital accepts no responsibility if the information is made available to any other person, INCLUDING THE PATIENT. Interpretation Summary * Name: SAMANTHA LENTZ Study Date: 10/25/2016 02:46 PM BP: 145/95 mmHg * Patient Location: C.2T\S\S242\S\2 HR: 99 * : 1945 (M/d/yyyy) Gender: Male Height: 71 in * Age: 71 yrs Ethnicity: CA Weight: 200 lb * Ordering Physician: Gordon Villar * Performed By: aMggie Branham * * Reason For Study: A-FIB * BSA: 2.1 m2 * -- Conclusions -- * 1. Normal left ventricular size and systolic function. Estimated EF 65-70%. No regional wall motion abnormalities visualized. Mild concentric left ventricular hypertrophy. * 2. Mild biatrial dilation. * 3. Mild mitral regurgitation. * 4. Normal estimated right ventricular systolic pressure; 30 mmHg. * 5. Technically difficult study, enhanced with IV Definity. * 6. No prior study available for comparison. Procedure Details * A complete two-dimensional transthoracic echocardiogram was performed (2D, M-mode, Doppler and color flow Doppler). * The study was technically difficult. * There were technical limitations due to patient'sinability to cooperate * A contrast injection of Definity was performed to improve assessment of LV function. * Contrast was injected into an intravenous site in the left arm. * One vial of Definity ultrasound contrast was diluted in normal saline to a total volume of 10 ml. A total of '3' ml of solution was administered during imaging. * Lot # [id number] of Definity utilized for procedure. * Expiration date 12/06. * The attending nurse who injected the contrast agent was MATT ZABALA RN. Left Ventricle * Normal left ventricular size and systolic function. Estimated EF 65-70%. No regional wall motion abnormalities visualized. Mild concentric left ventricular hypertrophy. Right Ventricle * The right ventricle is normal in size and function. * The right ventricular systolic function is normal as assessed by tricuspid annular plane systolic excursion (TAPSE) (normal >1.5 cm). Atria * The left atrium is mildly dilated. * The right atrium is mildly dilated. * There is no evidence of atrial septal defect, but resolution does not allow assessment for a patent foramen ovale. Mitral Valve * The mitral valve is grossly normal. * There is no mitral valve stenosis. * There is mild mitral regurgitation. Tricuspid Valve * The tricuspid valve is not well visualized. * There is no tricuspid stenosis. * Significant tricuspid regurgitation is absent. Aortic Valve * The aortic valve is trileaflet. * No hemodynamically significant valvular aortic stenosis. * There is no significant aortic regurgitation. Pulmonic Valve * The pulmonary valve is inadequately visualized, but the Doppler data is adequate for interpretation. * There is no pulmonic valvular stenosis. * There is no significant pulmonary regurgitation. Great Vessels * The aortic root is normal size. * Aortic arch of normal dimension. * Ascending aorta of normal dimension Pericardium/Pleural * There is no pericardial effusion. Great Vessels * Normal inferior vena cava size and collapsability with sniff indicates a normal right atrial pressure of 3 mmHg MMode 2D Measurements and Calculations IVSd 1.2 cm LVIDd 4.9 cm LVIDs 3.4 cm LVPWd 1.3 cm IVS/LVPW 0.95 FS 31.3 % EDV(Teich) 114.2 ml ESV(Teich) 47.0 ml EF(Teich) 58.9 % EDV(cubed) 119.5 ml ESV(cubed) 38.8 ml EF(cubed) 67.5 % LV mass(C)d 247.3 grams LV mass(C)dI 117.3 grams/m\S\2 SV(Teich) 67.2 ml SI(Teich) 31.9 ml/m\S\2 SV(cubed) 80.7 ml SI(cubed) 38.3 ml/m\S\2 Ao root diam 3.3 cm Ao root area 8.5 cm\S\2 asc Aorta Diam 3.2 cm LVOT diam 2.1 cm LVOT area 3.4 cm\S\2 LVAd ap4 27.6 cm\S\2 LVLd ap4 7.4 cm EDV(MOD-sp4) 83.2 ml EDV(sp4-el) 87.6 ml LVAs ap4 12.4 cm\S\2 LVLs ap4 6.2 cm ESV(MOD-sp4) 20.2 ml ESV(sp4-el) 20.8 ml EF(MOD-sp4) 75.7 % EF(sp4-el) 76.2 % LVAd ap2 22.9 cm\S\2 LVLd ap2 7.5 cm EDV(MOD-sp2) 55.5 ml EDV(sp2-el) 58.8 ml LVAs ap2 10.6 cm\S\2 LVLs ap2 6.8 cm ESV(MOD-sp2) 13.3 ml ESV(sp2-el) 14.1 ml EF(MOD-sp2) 76.1 % EF(sp2-el) 76.0 % LVLd %diff 2.3 % EDV(MOD-bp) 68.9 ml LVLs %diff 7.7 % ESV(MOD-bp) 16.9 ml EF(MOD-bp) 75.5 % SV(MOD-sp4) 63.0 ml SI(MOD-sp4) 29.9 ml/m\S\2 SV(MOD-sp2) 42.2 ml SI(MOD-sp2) 20.0 ml/m\S\2 SV(MOD-bp) 52.0 ml SI(MOD-bp) 24.7 ml/m\S\2 SV(sp4-el) 66.8 ml SI(sp4-el) 31.7 ml/m\S\2 SV(sp2-el) 44.7 ml SI(sp2-el) 21.2 ml/m\S\2 Doppler Measurements and Calculations MV E max addis 105.1 cm/sec MV dec time 0.22 sec Ao V2 max 119.3 cm/sec Ao max PG 5.7 mmHg Ao max PG (full) 1.7 mmHg SHARMIN(V,A) 2.9 cm\S\2 SHARMIN(V,D) 2.9 cm\S\2 LV V1 max PG 4.0 mmHg LV V1 max 99.7 cm/sec MR max addis 501.3 cm/sec MR max PG 100.5 mmHg PA V2 max 108.9 cm/sec PA max PG 4.7 mmHg TR max addis 261.0 cm/sec RVSP(TR) 30.3 mmHg RAP systole 3.0 mmHg
[2016-10-25] MEDS: DIGOXIN IV 250 MCG in SYRINGE 9 ML IV SCH (19:10)
[2016-10-25 19:42] LABS: PARTIAL THROMBOPLASTIN RATIO 2.3
[2016-10-25] MEDS: TAMSULOSIN HCL 0.4 MG CAP PO SCH (20:53)
[2016-10-25] MEDS: CHOLECALCIFEROL 1000 INTER.UNIT TAB PO SCH (20:53)
[2016-10-25] MEDS: ATORVASTATIN 40 MG TAB PO SCH (20:53)
[2016-10-26] VITALS (8 sets, daily range): BP systolic 132–173; BP diastolic 75–97; PULSE 76–109; TEMP 36.5–37.2; O2SAT 93–97
[2016-10-26] MEDS: DIGOXIN IV 250 MCG in SYRINGE 9 ML IV SCH (00:52)
[2016-10-26] MEDS: HEPARIN 25,000 UNIT/500ML D5W 500 ML IV PRN ×2 (06:01→23:49)
[2016-10-26 07:15] LABS: HEMATOCRIT 39.7 % (42-52); MEAN CELL VOLUME 92.1 fL (80-100); MEAN CORPUSCULAR HEMOGLOBIN 30.2 pg (25-34); MEAN CORPUSCULAR HGB CONC 32.7 g/dl (32-36); PLATELET COUNT 154 K/uL (130-400); RED BLOOD COUNT 4.31 M/uL (4.7-6.1); WHITE BLOOD COUNT 5.54 K/uL (4.8-10.8)
[2016-10-26 07:41] LABS: INR 1.3 (0.9-1.1); PARTIAL THROMBOPLASTIN RATIO 3.3; PROTHROMBIN TIME (PATIENT) 14.6 SECONDS (9.0-12.0)
[2016-10-26 07:49] LABS: BUN/CREATININE RATIO 17.1 (10-20); CALCIUM 9.1 mg/dl (8.5-10.1); CREATININE 0.83 mg/dl (0.60-1.40); POTASSIUM 3.6 mmol/L (3.5-5.1)
--- NOTE | 2016-10-26 08:24 | Cardiology Follow-Up ---
Subjective Date of Service: Oct 26, 2016. Pt evaluation today including: conversation w/ patient, physical exam, chart review, lab review, review of studies, conversation w/ attending History of Present Illness This is a PGY1 resident note while on the cardiology service. Please see attending's separate note for further information and official plan/ recommendations. Pt states no concerns overnight. Denies "any fluttering", palpitations, CP, SOB , or other heart/chest concerns. Says his abdomen feels much improved as well and that he had a BM. Notes continued hematuria. No other pt-reported issues overnight. Social History Smoking Status: Former Smoker History of Alcohol Use: No Review of Systems Respiratory: No cough, No shortness of breath Cardiac: No chest pain, No edema Somewhat limited due to hx of dementia Objective Vital Signs Past 12 Hours Date Time Temp Pulse Resp B/P (MAP) Pulse Ox O2 Delivery O2 Flow Rate FiO2 10/26/16 08:15 36.9 76 22 173/75 (107) 96 Room Air 76 10/26/16 04:00 Room Air 10/26/16 03:20 36.9 78 16 171/97 (121) 96 Room Air 10/26/16 00:52 84 10/25/16 23:59 Room Air 10/25/16 23:13 37.1 94 17 149/83 (105) 97 Room Air Last Recorded Weight-Kilograms: 89.900 Physical Exam Constitutional: Level of Distress: NAD Lungs: Respiratory effort: no dyspnea Auscultation: breath sounds normal Cardiovascular: Heart Auscultation: normal S1, normal S2, no murmurs, irregular rate rhythm Peripheral Pulses: Bruits: none appreciated Carotid Pulse: normal on the left, normal on the right Radial Pulse: normal on the left, normal on the right Dorsalis Pedis Pulse: normal on the left, normal on the right Extremities: edema (minimal bilateral LE edema), varicosities Data Laboratory Results: Last 24 Hours Test 10/25/16 12:31 10/25/16 19:10 10/26/16 06:51 White Blood Count 6.76 K/uL 5.54 K/uL Red Blood Count 4.01 M/uL 4.31 M/uL Hemoglobin 12.5 g/dL 13.0 g/dL Hematocrit 37.4 % 39.7 % Mean Corpuscular Volume 93.3 fL 92.1 fL Mean Corpuscular Hemoglobin 31.2 pg 30.2 pg Mean Corpuscular Hemoglobin Concent 33.4 g/dl 32.7 g/dl Platelet Count 140 K/uL 154 K/uL Mean Platelet Volume 9.9 fL 10.0 fL Neutrophils (%) (Auto) 68.4 % Lymphocytes (%) (Auto) 18.8 % Monocytes (%) (Auto) 10.1 % Eosinophils (%) (Auto) 2.1 % Basophils (%) (Auto) 0.3 % Neutrophils # (Auto) 4.63 K/uL Lymphocytes # (Auto) 1.27 K/uL Monocytes # (Auto) 0.68 K/uL Eosinophils # (Auto) 0.14 K/uL Basophils # (Auto) 0.02 K/uL RDW Standard Deviation 50.4 fL 48.6 fL RDW Coefficient of Variation 14.8 % 14.3 % Immature Granulocyte % (Auto) 0.3 % Immature Granulocyte # (Auto) 0.02 K/uL Prothrombin Time 12.8 SECONDS 14.6 SECONDS Prothromb Time International Ratio 1.2 1.3 Activated Partial Thromboplast Time 29.5 SECONDS 60.1 SECONDS 86.7 SECONDS Partial Thromboplastin Ratio 1.1 2.3 3.3 Sodium Level 138 mmol/L Potassium Level 3.6 mmol/L Chloride Level 105 mmol/L Carbon Dioxide Level 25 mmol/L Anion Gap 8.0 mmol/L Blood Urea Nitrogen 14 mg/dl Creatinine 0.83 mg/dl Est Creatinine Clear Calc Drug Dose 88.2 ml/min Estimated GFR () 103.3 Estimated GFR (Non- 89.2 BUN/Creatinine Ratio 17.1 Random Glucose 105 mg/dl Calcium Level 9.1 mg/dl Digoxin Level 1.4 ng/ml Complete two-dimensional transthoracic echocardiogram - Study Date: 10/25/2016 02:46 PM * -- Conclusions -- * 1. Normal left ventricular size and systolic function. Estimated EF 65-70% . No regional wall motion abnormalities visualized. Mild concentric left ventricular hypertrophy. * 2. Mild biatrial dilation. * 3. Mild mitral regurgitation. * 4. Normal estimated right ventricular systolic pressure; 30 mmHg. * 5. Technically difficult study, enhanced with IV Definity. * 6. No prior study available for comparison. Telemetry: - Period of tachycardia later yesterday evening, improved overnight into am. Remains in afib. Assessment and Plan 71yo male admitted for abdominal pain and renal/ureteral stone issues, now s/p stenting. Cardiology consulted for his present afib with RVR and known hx of same. 06Sep: Started digoxin load with goal of returning to prior outpt regimen of metoprolol tartrate 100 mg PO q day and digoxin (this time 125 mcg PO q day). Was briefly off IV Cardizem, but back on apparently due to increased rates in evening and overnight, but overall trend improved. Presently on cardizem 7.5 mg /hr. Started on heparin & restarted on coumadin, INR 1.3 this morning. Some hypertension as well in past 24 hours. Plan: - Goal remains to get off of IV cardizem. Ordered diltiazem 30 mg PO QID to try to facilitate this. - Ordered digoxin 125 mcg PO q day (starting at 4 pm). Continue to monitor for bradycardia. - Continue his metoprolol 100 mg PO BID (current dose). - Consider restarting his outpt lisinopril per primary team's wishes for HTN control now that Cr has improved. - Continue anticoagulation for his afib and hx of CAD (stent). Discussed all the above with attending (Dr. Tesfaye) during rounds this morning. Please see his separate note for official comments/recommendations. - JAMES, PGY1 Family Medicine, Cardiology service CARDIOLOGY ATTENDING ADDENDUM: SEE MY NOTE.
--- NOTE | 2016-10-26 08:55 | CARDIOLOGY PROGRESS NOTE ---
DATE: 10/26/2016 DATE: 10/26/2016 TIME: 8:29 a.m. SUBJECTIVE: Mr. Krishnan has no specific complaints today. He denies palpitations, chest pain, shortness of breath. His abdominal pain has improved. There has still been some degree of hematuria. OBJECTIVE: VITAL SIGNS: Temperature 36.9 degrees, heart rate 76 beats per minute, respiration rate 22, blood pressure 173/75 mmHg, oxygen saturation 96% on room air. I's and O's negative 1.2 liters so far today. Weight is 89.9 kg. GENERAL: No acute distress. He is alert. NECK: No JVD. CARDIAC EXAMINATION: No ventricular heave. Irregularly irregular and tachycardic. 2/6 systolic murmur. No rubs or gallops. LUNGS: Clear to auscultation bilaterally without wheezes, rales or rhonchi. ABDOMEN: Soft, nondistended. Normoactive bowel sounds. Very mild tenderness left quadrants, improved from yesterday. EXTREMITIES: No cyanosis or edema. PSYCHIATRIC: Affect appears appropriate. MEDICATIONS: Include digoxin total of 1 mg given yesterday intravenously over 12 hours, aspirin 81 mg daily, Lipitor 40 mg daily, ciprofloxacin 400 mg IV q. 12 hours, diltiazem drip currently at 7.5 mg per hour, heparin drip per protocol, metoprolol 100 mg p.o. b.i.d., Coumadin 5 mg daily. TELEMETRY: Personally reviewed. Overall, his heart rate trend has improved. He was actually able to be weaned off of diltiazem completely yesterday for a short period of time before he became once again tachycardic but overall heart rate trend has improved but remains in rapid ventricular response currently on telemetry. LABORATORY DATA: White blood cell count 5.54, hemoglobin 13, platelets 154, sodium 138, potassium 3.6, BUN 14, creatinine 0.8. INR is 1.3. Digoxin 1.4; however, this is following an IV load. Echocardiogram performed on 10/25/2016 demonstrated normal LV systolic function and wall motion. EF 65-70%. Mild LVH. Mild biatrial dilation. Mild MR. RVSP 30. ASSESSMENT AND PLAN: 1. Atrial fibrillation with rapid ventricular response: Has permanent atrial fibrillation but has been tachycardic throughout much of this hospitalization. Digoxin has been restarted and would recommend 125 mcg digoxin daily orally at this time. Will also continue metoprolol at current dose and add diltiazem 30 mg p.o. q. 6 hours in an attempt to wean off of intravenous diltiazem. Medications can be titrated as appropriate. Monitor for bradycardia as there has been concern for this in the past; however, no significant bradycardia has been noted in vitals when reviewed. Continue anticoagulation for stroke risk reduction if no contraindication from a hematuria standpoint. 2. Coronary artery disease: No angina. Continue antiplatelet therapy as he has prior LAD PCI in the mid LAD. Continue high intensity statin therapy and beta giovany. 3. Mitral regurgitation: Mitral regurgitation on echo appeared mild. It was reported as mild to moderate in the past. This can be monitored periodically over time as appropriate. 4. Hypertension: Blood pressure elevated today. He has been on lisinopril as an outpatient. Consider restarting lisinopril now that his renal function has improved. Diltiazem orally was also initiated today which may also offer some benefit. 5. Disposition: Cardiology will continue to follow.
[2016-10-26] MEDS: RIVASTIGMINE TARTRATE (EXELON) 1.5 MG CAP PO SCH (09:31)
[2016-10-26] MEDS: ASPIRIN 81 MG ECTAB PO SCH (09:32)
[2016-10-26] MEDS: METOPROLOL TARTRATE 100 MG TAB PO SCH ×2 (09:32→20:38)
[2016-10-26] MEDS: CIPROFLOXACIN / D5W 400 MG in PREMIXED IN D5W 200 ML IV SCH (09:33)
[2016-10-26] MEDS: DILTIAZEM HCL 30 MG TAB PO SCH ×4 (09:39→20:37)
--- NOTE | 2016-10-26 10:14 | Hospitalist Progress Note ---
Hospitalist Progress Note Date of Service Oct 26, 2016. Subjective Pt evaluation today including: conversation w/ patient, physical exam, chart review, lab review, review of inpatient medication list Pain: None PO Intake: Tolerating PO diet Voiding: voiding difficulty (hematuria improving) The patient reports feeling well. He still complains of hematuria but states that this is improving. He noted a productive cough earlier this morning but that appears to be improved now. He is tolerating a PO diet. The patient denies fevers, chills, sweats, chest pain, palpitations, claudication, wheezing , shortness of breath, nausea, vomiting, abdominal pain, dysuria, urinary retention, paralysis, weakness, numbness and tingling. Additional Comments: See HPI for pertinent positives and negatives. All other systems reviewed and negative. Objective Vital Signs Date Time Temp Pulse Resp B/P (MAP) Pulse Ox O2 Delivery O2 Flow Rate FiO2 10/26/16 08:15 36.9 76 22 173/75 (107) 96 Room Air 76 10/26/16 04:00 Room Air 10/26/16 03:20 36.9 78 16 171/97 (121) 96 Room Air 10/26/16 00:52 84 10/25/16 23:59 Room Air 10/25/16 23:13 37.1 94 17 149/83 (105) 97 Room Air 10/25/16 20:11 36.6 104 20 174/91 (118) 96 Room Air 10/25/16 20:00 Room Air 10/25/16 19:10 112 10/25/16 16:00 Room Air 10/25/16 15:29 36.6 88 18 164/92 (116) 97 Room Air 10/25/16 12:55 77 10/25/16 12:17 37.1 73 20 132/85 (101) 95 Room Air 10/25/16 12:00 Room Air Physical Exam Notes: General appearance: Well-developed, well-nourished, no apparent distress Head: Normocephalic, atraumatic Eyes: Normal inspection, PERRL, EOMI ENT: Normal ENT inspection, hearing grossly normal, pharynx normal Neck: Supple, no JVD, trachea midline Respiratory/Chest: Lungs clear to auscultation, normal breath sounds, no respiratory distress Cardiovascular: +Irregularly irregular, tachycardic. No gallop, no murmur Abdomen/GI: Normal bowel sounds, non-tender, soft Extremities/Musculoskeletal: Normal inspection, no calf tenderness, no pedal edema Neurological/Psych: +Did not know year but stated correct month and president. Alert, normal mood/affect, oriented x 3 Skin: Normal color, warm/dry, no rash Laboratory Results Last 24 Hours Test 10/25/16 12:31 10/25/16 19:10 10/26/16 06:51 White Blood Count 6.76 K/uL 5.54 K/uL Red Blood Count 4.01 M/uL 4.31 M/uL Hemoglobin 12.5 g/dL 13.0 g/dL Hematocrit 37.4 % 39.7 % Mean Corpuscular Volume 93.3 fL 92.1 fL Mean Corpuscular Hemoglobin 31.2 pg 30.2 pg Mean Corpuscular Hemoglobin Concent 33.4 g/dl 32.7 g/dl Platelet Count 140 K/uL 154 K/uL Mean Platelet Volume 9.9 fL 10.0 fL Neutrophils (%) (Auto) 68.4 % Lymphocytes (%) (Auto) 18.8 % Monocytes (%) (Auto) 10.1 % Eosinophils (%) (Auto) 2.1 % Basophils (%) (Auto) 0.3 % Neutrophils # (Auto) 4.63 K/uL Lymphocytes # (Auto) 1.27 K/uL Monocytes # (Auto) 0.68 K/uL Eosinophils # (Auto) 0.14 K/uL Basophils # (Auto) 0.02 K/uL RDW Standard Deviation 50.4 fL 48.6 fL RDW Coefficient of Variation 14.8 % 14.3 % Immature Granulocyte % (Auto) 0.3 % Immature Granulocyte # (Auto) 0.02 K/uL Prothrombin Time 12.8 SECONDS 14.6 SECONDS Prothromb Time International Ratio 1.2 1.3 Activated Partial Thromboplast Time 29.5 SECONDS 60.1 SECONDS 86.7 SECONDS Partial Thromboplastin Ratio 1.1 2.3 3.3 Sodium Level 138 mmol/L Potassium Level 3.6 mmol/L Chloride Level 105 mmol/L Carbon Dioxide Level 25 mmol/L Anion Gap 8.0 mmol/L Blood Urea Nitrogen 14 mg/dl Creatinine 0.83 mg/dl Est Creatinine Clear Calc Drug Dose 88.2 ml/min Estimated GFR () 103.3 Estimated GFR (Non- 89.2 BUN/Creatinine Ratio 17.1 Random Glucose 105 mg/dl Calcium Level 9.1 mg/dl Digoxin Level 1.4 ng/ml Assessment and Plan 71 y/o male with a history of permanent a-fib on anticoagulation, HTN, HLD, CAD w/[place] in 2003, h/o CVA 2010, dementia, and h/o bilateral nephrolithiasis who presents to the ED 10/22 with abdominal/back pain, chills, dysuria and hematuria. Bilateral nephrolithiasis w/left sided hydronephrosis--stable -Admit to med/surg. Transferred to tele as below -Renal US shows mild left hydronephrosis. No ureteral calculi identified although these are often occult by sonography. Extensive bilateral nephrolithiasis. -IVF d/c'd -Flomax 0.4 mg PO qhs -Strain urine. 1 stone passed in ED, sent for analysis -Urology consulted, appreciate recs: Cystoscopy with left stent placement and retrograde pyelogram on 10/24. Pt will need outpatient follow up for definitive stone treatment. -Pre op CXR shows some mild pulmonary vascular congestion, atelectasis in RLL -Would avoid further Dilaudid -CT abdomen/pelvis shows mild left-sided hydroureteronephrosis secondary to 7 x 5 x 6 mm calculus of the left ureteropelvic junction. Additionally, there is an obstructing 4 x 3 x 3 mm calculus of the distal left ureter just proximal to the ureterovesicular junction. Bilateral nephrolithiasis redemonstrated. Small layering calculi are seen within the dependent urinary bladder lumen. Prostatomegaly. -Morphine 2 mg IV q2h prn pain -Zofran 4 mg IV q4h prn nausea GO secondary to ureteral stones, hydronephrosis and dehydration--resolved -Creatinine remains stable, < 1 -IVF d/c'd A-fib with RVR--ongoing -Transferred to [facility] 10/24. Pt had become rate controlled after starting dig and diltiazem drip d/c'd, but pt then went back to RVR with HR up to 190s. Dilt drip restarted and titrated up. HR now 90-120s this morning. -Continue Lopressor 100 mg PO BID -Diltiazem drip currently at 10 mg/hr, wean when able -Diltiazem 30 mg PO QID -Cardiology consulted, appreciate recs: Continue digoxin at 125 mcg daily. Oral diltiazem added to help wean off diltiazem drip. -Digoxin 125 mcg PO qd -Digoxin level 1.4 on 10/26 -Echo shows LVEF 65-70%, no WMA -INR 1.3 on 10/26 -Continue heparin drip -Continue warfarin 5 mg PO qd (home dose 2 mg) Hematuria secondary to cystoscopy--improving -Hemoglobin trending up, stable HTN, HLD, CAD, h/o NC and CVA--stable -Continue Lopressor as above and atorvastatin 40 mg PO qd Dementia -Continue Exelon 3 mg PO qd DVT prophylaxis -Heparin drip -SCDs Code Status -Level I, FULL RESUSCITATION STATUS
--- NOTE | 2016-10-26 11:12 | Pharmacy Progress Note ---
Automatic IV to PO Conversion Date of Service: Oct 26, 2016. [facility] has identified patient as an appropriate candidate for automatic intravenous to oral conversion. Eligible medication: IV CIPRO Subjective The patient is a 71 year old male admitted on Oct 22, 2016 at 09:30 for Hydronephrosis. Objective Vital Signs: Vital Signs Past 12 Hours Date Time Temp Pulse Resp B/P (MAP) Pulse Ox O2 Delivery O2 Flow Rate FiO2 10/26/16 10:57 Room Air 10/26/16 08:15 36.9 76 22 173/75 (107) 96 Room Air 76 10/26/16 04:00 Room Air 10/26/16 03:20 36.9 78 16 171/97 (121) 96 Room Air 10/26/16 00:52 84 10/25/16 23:59 Room Air 10/25/16 23:13 37.1 94 17 149/83 (105) 97 Room Air White Blood Count: Test 10/25/16 12:31 10/26/16 06:51 White Blood Count 6.76 K/uL (4.8-10.8) 5.54 K/uL (4.8-10.8) Red Blood Count 4.01 M/uL (4.7-6.1) Hemoglobin 12.5 g/dL (14.0-18.0) Hematocrit 37.4 % (42-52) Mean Corpuscular Volume 93.3 fL (80-100) Mean Corpuscular Hemoglobin 31.2 pg (25-34) Mean Corpuscular Hemoglobin Concent 33.4 g/dl (32-36) Platelet Count 140 K/uL (130-400) Mean Platelet Volume 9.9 fL (7.4-10.4) Neutrophils (%) (Auto) 68.4 % Lymphocytes (%) (Auto) 18.8 % Monocytes (%) (Auto) 10.1 % Eosinophils (%) (Auto) 2.1 % Basophils (%) (Auto) 0.3 % Neutrophils # (Auto) 4.63 K/uL (1.4-6.5) Lymphocytes # (Auto) 1.27 K/uL (1.2-3.4) Monocytes # (Auto) 0.68 K/uL (0.11-0.59) Eosinophils # (Auto) 0.14 K/uL (0-0.5) Basophils # (Auto) 0.02 K/uL (0-0.2) Height (Feet): 5 Height (Inches): 11.00 Weight (Kilograms): 89.900 Type of Diet: Regular Assessment & Plan The Infectious Disease Society and the [place] [employer] recommend conversion to oral therapy once a patient is determined to be clinically stable and are able to tolerate oral medications. Patient identified as appropriate candidate for IV to PO conversion of Cipro based on the following criteria: * Afebrile for greater than or equal to 12 hours * Receiving oral/enteral medications and/or tolerating oral/enteral diet for greater than 24 hours * Improvement in clinical condition evidenced by .. WBC count of 5.4 10^3/uL and trending downward, resolution of signs/symptoms of illness * Hemodynamically stable or * Receiving oral medications and/or tolerating oral diet for greater than 24 hours * Patient does not meet criteria for use of intravenous proton pump inhibitors ( negative for GI bleed, hypersecretory conditions, GERD associated with erosive esophagitis & unable to take PO) Automatic conversion to: Cipro 500mg PO every 12 hours
[2016-10-26] MEDS: WARFARIN SOD 5 MG TAB PO SCH (15:19)
[2016-10-26] MEDS: DIGOXIN 0.125 MG TAB PO SCH (15:19)
[2016-10-26 15:43] LABS: PARTIAL THROMBOPLASTIN RATIO 2.8
[2016-10-26] MEDS: CIPROFLOXACIN 500 MG TAB PO SCH (20:37)
[2016-10-26] MEDS: ATORVASTATIN 40 MG TAB PO SCH (20:38)
[2016-10-26] MEDS: CHOLECALCIFEROL 1000 INTER.UNIT TAB PO SCH (20:38)
[2016-10-26] MEDS: TAMSULOSIN HCL 0.4 MG CAP PO SCH (20:38)
[2016-10-26 22:37] LABS: PARTIAL THROMBOPLASTIN RATIO 2.8
[2016-10-27] VITALS (7 sets, daily range): BP systolic 97–139; BP diastolic 70–90; PULSE 79–96; TEMP 36.7–37.4; O2SAT 93–97
[2016-10-27] MEDS: ALUMINUM/MAGNESIUM/SIMETH (MAALOX MAX) 30 ML UDC PO PRN (06:28)
[2016-10-27 06:32] LABS: INR 2.1 (0.9-1.1); PARTIAL THROMBOPLASTIN RATIO 2.6; PROTHROMBIN TIME (PATIENT) 23.3 SECONDS (9.0-12.0)
[2016-10-27] MEDS: DILTIAZEM HCL 30 MG TAB PO SCH (08:30)
[2016-10-27] MEDS: CIPROFLOXACIN 500 MG TAB PO SCH ×2 (08:31→20:44)
[2016-10-27] MEDS: METOPROLOL TARTRATE 100 MG TAB PO SCH ×2 (08:31→20:45)
[2016-10-27] MEDS: ASPIRIN 81 MG ECTAB PO SCH (08:31)
[2016-10-27] MEDS: RIVASTIGMINE TARTRATE (EXELON) 1.5 MG CAP PO SCH (08:32)
[2016-10-27] MEDS ORDERED: DILTIAZEM HCL 180 MG ER CAP PO ONE (11:00)
--- NOTE | 2016-10-27 12:25 | CARDIOLOGY PROGRESS NOTE ---
DATE: 10/27/2016 TIME: 12:09 p.m. SUBJECTIVE: Abdominal pain has resolved. No chest pain, shortness of breath, syncope, near syncope, or palpitations. OBJECTIVE: VITAL SIGNS: Temperature 36.7 degrees, heart rate 79 beats per minute, respiration rate 18, blood pressure 115/79 mmHg, oxygen saturation 95% on room air. I's and O's negative 1.5 liters yesterday. Weight 87.9 kg. GENERAL: No acute distress. He is alert. NECK: No JVD. CARDIAC EXAM: No ventricular heave. Irregularly irregular. No audible murmurs, rubs or gallops today. Normal S1, S2. LUNGS: Clear to auscultation bilaterally without wheezes, rales or rhonchi. ABDOMEN: Soft, nontender, nondistended. Normoactive bowel sounds. EXTREMITIES: No pitting edema. No cyanosis. PSYCHIATRIC: Affect appears appropriate. MEDICATIONS: Include aspirin 81 mg daily, Lipitor 40 mg at bedtime, digoxin 0.125 mg p.o. daily, diltiazem 30 mg p.o. q.i.d., diltiazem drip has been held, heparin drip per protocol, metoprolol 100 mg p.o. b.i.d., and Coumadin 5 mg daily. LABORATORY DATA: White blood cell count 5.5, hemoglobin 13, platelets 154. INR 2.1. Sodium 138, potassium 3.6, BUN 14, creatinine 0.83. IMAGING DATA: Telemetry personally reviewed. He was reasonably well rate controlled for most of the day yesterday after diltiazem drip was discontinued; however, was quite tachycardic this morning for prolonged periods of time. ASSESSMENT AND PLAN: 1. Atrial fibrillation with rapid ventricular response: Permanent atrial fibrillation. Has been more tachycardic during this hospitalization. Continue digoxin. Due to more tachycardia this morning, will increase diltiazem to a total 180 mg once daily, to start today. Can then discontinue short-acting diltiazem. Continue metoprolol at current dose. Continue anticoagulation for stroke risk reduction. Would resume his home dose of Coumadin if his INR was well controlled as an outpatient. According to records, his home dose was 2 mg. 2. Coronary artery disease status post percutaneous coronary intervention: Continue antiplatelet therapy due to prior percutaneous coronary intervention. No angina. Continue high intensity statin therapy and beta giovany. 3. Mitral regurgitation: Mild on most recent echo. His was present at the bedside today and did inquire about this. This was discussed with her. 4. Hypertension: Blood pressure has been better controlled with oral diltiazem. He had been on lisinopril as an outpatient and if his blood pressure is reasonably controlled, he may not require lisinopril in the future for blood pressure purposes. 5. Disposition: Plan of care will be discussed with hospitalist service. I will not be available for the next 2 days. If there are any further questions or concerns from a cardiac perspective, please do not hesitate to call the on-call outpatient dietitian from [facility]. Mrs. Krishnan asked about undergoing further urologic procedures if necessary. If another procedure is necessary, no further cardiac testing is necessary. Would recommend continuation of rate controlling medications. MTDD
--- NOTE | 2016-10-27 14:17 | Cardiology Follow-Up ---
Subjective Date of Service: Oct 27, 2016. Pt evaluation today including: conversation w/ patient, conversation w/ family , physical exam, chart review, lab review, review of studies, conversation w/ attending History of Present Illness This is a PGY1 resident note while on the cardiology service. Please see attending's separate note for further information and official plan/ recommendations. Pt states no concerns overnight. Says his abdominal pain has resolved but thinks he still has some hematuria. Denies any palpitations, CP, SOB, or other heart/chest concerns. No other pt-reported issues overnight. Met on attending rounds... she asked about pt could have any future urological procedures regarding his heart function. Social History Smoking Status: Former Smoker History of Alcohol Use: No Review of Systems Respiratory: No cough, No shortness of breath Cardiac: No chest pain, No edema Somewhat limited due to hx of dementia Objective Vital Signs Past 12 Hours Date Time Temp Pulse Resp B/P (MAP) Pulse Ox O2 Delivery O2 Flow Rate FiO2 10/27/16 12:00 Room Air 10/27/16 11:36 36.9 81 20 97/70 (79) 97 Room Air 10/27/16 08:00 Room Air 10/27/16 07:21 36.7 79 18 115/79 (91) 95 Room Air 10/27/16 04:03 37.4 90 19 139/90 (106) 96 Room Air 10/27/16 04:00 Room Air Last Recorded Weight-Kilograms: 87.900 Intake & Output 8-Hour Column 10/27/16 10/28/16 10/28/16 16:00 00:00 08:00 Intake Total 834 ml Output Total 350 ml Balance 484 ml 24-Hour Column 10/28/16 08:00 Intake Total 834 ml Output Total 350 ml Balance 484 ml Physical Exam Constitutional: Level of Distress: NAD Lungs: Respiratory effort: no dyspnea Auscultation: breath sounds normal Cardiovascular: Heart Auscultation: normal S1, normal S2, no murmurs, irregular rate rhythm Peripheral Pulses: Bruits: none appreciated Carotid Pulse: normal on the left, normal on the right Radial Pulse: normal on the left, normal on the right Dorsalis Pedis Pulse: normal on the left, normal on the right Extremities: edema (minimal bilateral LE edema), varicosities Data Laboratory Results: Last 24 Hours Test 10/26/16 15:07 10/26/16 22:09 10/27/16 05:43 Activated Partial Thromboplast Time 71.8 SECONDS 71.7 SECONDS 66.7 SECONDS Partial Thromboplastin Ratio 2.8 2.8 2.6 Prothrombin Time 23.3 SECONDS Prothromb Time International Ratio 2.1 Telemetry: Heart rate in 70-90's overnight, trended to tachycardic over the morning, irregularly irregular. Assessment and Plan 71yo male admitted for abdominal pain and renal/ureteral stone issues, now s/p stenting. Cardiology consulted for his present afib with RVR and known hx of same. 06Sep: Started digoxin load with goal of returning to prior outpt regimen of metoprolol tartrate 100 mg PO q day and digoxin (this time 125 mcg PO q day). Was briefly off IV Cardizem, but back on apparently due to increased rates in evening and overnight, but overall trend improved. Presently on cardizem 7.5 mg /hr. Started on heparin & restarted on coumadin, INR 1.3 this morning. Some hypertension as well in past 24 hours. 07Sep: Started diltiazem 30 mg PO QID (stopped IV form of same). Still periods of hypertension and tachycardia. INR 2.1. Plan: - Transition from diltiazem QID to extended release daily (start at 180 mg). Continue his metoprolol & digoxin for afib rate control as well. - Addition of diltiazem PO may improve his HTN as well. May end up not back on his prior home lisinopril. - Continue coumadin for anticoagulation (prior home dose was 2 mg) for his hx of afib. - No further cardiac testing is anticipated prior to another urologic procedure , of course barring acute change in sx or health status. Discussed all the above with attending (Dr. Tesfaye) during rounds this morning. Please see his separate note for official comments/recommendations. - JAMES, PGY1 Family Medicine, Cardiology service CARDIOLOGY ATTENDING ADDENDUM: SEE MY NOTE. Resident Tracking Resident Involvement: Resident Care Provided Care Provided: Adult Hospital Medicine (cardiology rounds)
--- NOTE | 2016-10-27 15:12 | Progress Note ---
Subjective Date of Service: Oct 27, 2016. Subjective Pt evaluation today including: conversation w/ patient, physical exam, chart review, lab review, review of studies, review of inpatient medication list Pt resting in bed comfortably Tachycardia still evident this AM No acute events overnight Problem List Medical Problems: (1) Calculus of distal right ureter Status: Acute (2) Cellulitis of right lower extremity Status: Acute (3) CVA (cerebral infarction) Status: Chronic (4) Dehydration Status: Acute (5) Hematuria Status: Acute (6) Obstruction of right ureteropelvic junction due to stone Status: Acute (7) Renal colic Status: Acute (8) Renal insufficiency Status: Acute Surgical Problems: (1) S/P PTCA (percutaneous transluminal coronary angioplasty) Status: Chronic (2) Total knee replacement status Status: Chronic Review of Systems Constitutional: No fever, No chills, No sweats, No weakness Eyes: No worsening of vision, No eye pain, No redness ENT: No hearing loss, No unusual epistaxis, No nasal symptoms, No sore throat Respiratory: No cough, No sputum, No wheezing, No shortness of breath Cardiac: No chest pain, No orthopnea, No PND, No edema Abdomen: No pain, No nausea, No vomiting, No diarrhea, No constipation Musculoskeletal: No joint pain, No muscle pain, No swelling, No calf pain Male : No dysuria, No urinary frequency, No incontinence, No nocturia more than once/night Neurologic: No memory loss, No paralysis, No weakness, No numbness/tingling Psychiatric: No depression symptoms, No anhedonism, No anxiety, No insomnia Endo: No fatigue, No excessive thirst Skin: No rash, No itch Objective Vital Signs Date Time Temp Pulse Resp B/P (MAP) Pulse Ox O2 Delivery O2 Flow Rate FiO2 10/27/16 12:00 Room Air 10/27/16 11:36 36.9 81 20 97/70 (79) 97 Room Air 10/27/16 08:00 Room Air 10/27/16 07:21 36.7 79 18 115/79 (91) 95 Room Air 10/27/16 04:03 37.4 90 19 139/90 (106) 96 Room Air 10/27/16 04:00 Room Air 10/27/16 00:00 Room Air 10/26/16 23:52 37.2 102 18 151/87 (108) 96 Room Air 10/26/16 21:41 93 Room Air 10/26/16 20:24 36.8 85 18 144/81 (102) Room Air 10/26/16 16:47 93 Room Air 10/26/16 16:01 36.6 109 20 150/83 (105) 93 Room Air 10/26/16 15:19 85 Physical Exam General Appearance: WD/WN, no apparent distress Eyes: normal inspection, PERRL, EOMI, sclerae normal Neck: supple, no adenopathy, thyroid normal, no JVD Respiratory/Chest: chest non-tender, lungs clear, normal breath sounds, no respiratory distress Cardiovascular: no JVD, + tachycardia, + irregularly irregular Abdomen: normal bowel sounds, non tender, soft, no organomegaly Extremities: normal range of motion, non-tender, normal inspection, no pedal edema Neurologic/Psychiatric: no motor/sensory deficits, alert, normal mood/affect, oriented x 3 Laboratory Results Last 24 Hours Test 10/26/16 22:09 10/27/16 05:43 Activated Partial Thromboplast Time 71.7 SECONDS 66.7 SECONDS Partial Thromboplastin Ratio 2.8 2.6 Prothrombin Time 23.3 SECONDS Prothromb Time International Ratio 2.1 Assessment and Plan 71 y/o male with a history of permanent a-fib on anticoagulation, HTN, HLD, CAD w/[place] in 2003, h/o CVA 2010, dementia, and h/o bilateral nephrolithiasis who presents to the ED 10/22 with abdominal/back pain, chills, dysuria and hematuria. Bilateral nephrolithiasis w/left sided hydronephrosis--stable -Currently in telemetry -Renal US shows mild left hydronephrosis. No ureteral calculi identified although these are often occult by sonography. Extensive bilateral nephrolithiasis. -Cont flomax 0.4 mg PO qhs -Strain urine. 1 stone passed in ED, sent for analysis -Urology consulted, appreciate recs: Cystoscopy with left stent placement and retrograde pyelogram on 10/24. Pt will need outpatient follow up for definitive stone treatment. -Pre op CXR shows some mild pulmonary vascular congestion, atelectasis in RLL -Would avoid further Dilaudid -CT abdomen/pelvis shows mild left-sided hydroureteronephrosis secondary to 7 x 5 x 6 mm calculus of the left ureteropelvic junction. Additionally, there is an obstructing 4 x 3 x 3 mm calculus of the distal left ureter just proximal to the ureterovesicular junction. Bilateral nephrolithiasis redemonstrated. Small layering calculi are seen within the dependent urinary bladder lumen. Prostatomegaly. -Morphine 2 mg IV q2h prn pain -Zofran 4 mg IV q4h prn nausea GO secondary to ureteral stones, hydronephrosis and dehydration--resolved -Creatinine remains stable, < 1 -IVF d/c'd A-fib with RVR--ongoing -Transferred to [facility] 10/24. Pt had become rate controlled after starting dig and diltiazem drip d/c'd, but pt then went back to RVR with HR up to 190s. Dilt drip restarted and titrated up. -Continue Lopressor 100 mg PO BID -Cardiology consulted, appreciate recs: Continue digoxin at 125 mcg daily. Persistent tachycardia -Started on dilt XR 180 mg PO q AM -Digoxin level 1.4 on 10/26 -Echo shows LVEF 65-70%, no WMA -INR 1.3 on 10/26 -Continue heparin drip -Continue warfarin 2 mg PO qd (home dose 2 mg) Hematuria secondary to cystoscopy--improving -Hemoglobin trending up, stable HTN, HLD, CAD, h/o [place] and CVA--stable -Continue Lopressor as above and atorvastatin 40 mg PO qd Dementia -Continue Exelon 3 mg PO qd DVT prophylaxis -Heparin drip -SCDs Code Status -Level I, FULL RESUSCITATION STATUS
[2016-10-27] MEDS: WARFARIN SOD 2 MG TAB PO SCH (16:19)
[2016-10-27] MEDS: DIGOXIN 0.125 MG TAB PO SCH (16:53)
[2016-10-27] MEDS: CHOLECALCIFEROL 1000 INTER.UNIT TAB PO SCH (20:45)
[2016-10-27] MEDS: TAMSULOSIN HCL 0.4 MG CAP PO SCH (20:46)
[2016-10-27] MEDS: ATORVASTATIN 40 MG TAB PO SCH (21:26)
[2016-10-27] MEDS: HEPARIN 25,000 UNIT/500ML D5W 500 ML IV PRN (22:34)
[2016-10-28] VITALS (11 sets, daily range): BP systolic 111–157; BP diastolic 75–89; PULSE 64–92; TEMP 36.6–37.1; O2SAT 95–99
[2016-10-28] MEDS: ALUMINUM/MAGNESIUM/SIMETH (MAALOX MAX) 30 ML UDC PO PRN (03:34)
[2016-10-28 07:17] LABS: HEMATOCRIT 38.5 % (42-52); MEAN CELL VOLUME 91.7 fL (80-100); MEAN CORPUSCULAR HEMOGLOBIN 30.5 pg (25-34); MEAN CORPUSCULAR HGB CONC 33.2 g/dl (32-36); MEAN PLATELET VOLUME 9.8 fL (7.4-10.4); PLATELET COUNT 181 K/uL (130-400)
[2016-10-28 07:50] LABS: PARTIAL THROMBOPLASTIN RATIO 3.3
[2016-10-28 08:45] LABS: CREATININE 0.91 mg/dl (0.60-1.40); POTASSIUM 3.7 mmol/L (3.5-5.1)
[2016-10-28] MEDS ORDERED: DILTIAZEM HCL 180 MG ER CAP PO SCH (09:00)
[2016-10-28] MEDS: METOPROLOL TARTRATE 100 MG TAB PO SCH ×2 (09:04→20:44)
[2016-10-28] MEDS: CIPROFLOXACIN 500 MG TAB PO SCH ×2 (09:04→20:44)
[2016-10-28] MEDS: ASPIRIN 81 MG ECTAB PO SCH (09:05)
[2016-10-28] MEDS: RIVASTIGMINE TARTRATE (EXELON) 1.5 MG CAP PO SCH (09:05)
[2016-10-28] MEDS ORDERED: MAGNESIUM SULFATE 1GM / D5W 1 GM in PREMIXED IN D5W 100 ML IV ONE (10:15)
[2016-10-28 10:45] LABS: INR 2.8 (0.9-1.1)
[2016-10-28] MEDS ORDERED: DILTIAZEM HCL 60 MG TAB PO ONE (11:45)
--- NOTE | 2016-10-28 11:51 | Hospitalist Progress Note ---
Hospitalist Progress Note Date of Service Oct 28, 2016. Subjective Pt evaluation today including: conversation w/ patient, conversation w/ family ( at bedside), physical exam, chart review, lab review, review of inpatient medication list Pain: None PO Intake: Tolerating PO diet Voiding: no voiding problems Patient reports feeling well. He still complains of hematuria but states that it's getting feeder tender. He denies any abdominal pain today but states that he did have some yesterday. The patient denies fevers, chills, sweats, chest pain , palpitations, claudication, cough, wheezing, shortness of breath, nausea, vomiting, abdominal pain, dysuria, urinary retention, paralysis, weakness, numbness and tingling. Additional Comments: See HPI for pertinent positives and negatives. All other systems reviewed and negative. Objective Vital Signs Date Time Temp Pulse Resp B/P (MAP) Pulse Ox O2 Delivery O2 Flow Rate FiO2 10/28/16 11:23 36.6 92 18 116/79 (91) 95 Nasal Cannula 2.0 10/28/16 08:22 96 Room Air 10/28/16 07:28 36.8 82 19 145/79 (101) 96 Room Air 10/28/16 04:00 96 Room Air 10/28/16 04:00 36.7 90 18 145/89 (107) 96 Room Air 10/28/16 01:00 97 Room Air 10/28/16 00:00 36.9 81 22 111/75 (87) 97 Room Air 10/27/16 20:43 96 120/81 (94) 10/27/16 20:00 96 Room Air 10/27/16 19:10 37.4 90 18 114/71 (85) 96 10/27/16 16:53 91 10/27/16 16:00 Room Air 10/27/16 15:53 36.7 89 20 123/84 (97) 93 Room Air 10/27/16 12:00 Room Air Physical Exam Notes: General appearance: Well-developed, well-nourished, no apparent distress Head: Normocephalic, atraumatic Eyes: Normal inspection, PERRL, EOMI ENT: Normal ENT inspection, hearing grossly normal, pharynx normal Neck: Supple, no JVD, trachea midline Respiratory/Chest: Lungs clear to auscultation, normal breath sounds, no respiratory distress Cardiovascular: +Irregularly irregular, tachycardic. No gallop, no murmur Abdomen/GI: Normal bowel sounds, non-tender, soft Extremities/Musculoskeletal: Normal inspection, no calf tenderness, no pedal edema Neurological/Psych: Alert, normal mood/affect, oriented x 3 Skin: Normal color, warm/dry, no rash Laboratory Results Last 24 Hours Test 10/27/16 18:30 10/28/16 06:51 Magnesium Level 1.7 mg/dl White Blood Count 7.50 K/uL Red Blood Count 4.20 M/uL Hemoglobin 12.8 g/dL Hematocrit 38.5 % Mean Corpuscular Volume 91.7 fL Mean Corpuscular Hemoglobin 30.5 pg Mean Corpuscular Hemoglobin Concent 33.2 g/dl RDW Standard Deviation 48.7 fL RDW Coefficient of Variation 14.4 % Platelet Count 181 K/uL Mean Platelet Volume 9.8 fL Prothrombin Time 31.0 SECONDS Prothromb Time International Ratio 2.8 Activated Partial Thromboplast Time 86.5 SECONDS Partial Thromboplastin Ratio 3.3 Sodium Level 136 mmol/L Potassium Level 3.7 mmol/L Chloride Level 103 mmol/L Carbon Dioxide Level 25 mmol/L Anion Gap 8.0 mmol/L Blood Urea Nitrogen 16 mg/dl Creatinine 0.91 mg/dl Est Creatinine Clear Calc Drug Dose 80.4 ml/min Estimated GFR () 98.6 Estimated GFR (Non- 85.1 BUN/Creatinine Ratio 18.0 Random Glucose 106 mg/dl Calcium Level 9.0 mg/dl Assessment and Plan 71 y/o male with a history of permanent a-fib on anticoagulation, HTN, HLD, CAD w/PR in 2003, h/o CVA 2010, dementia, and h/o bilateral nephrolithiasis who presents to the ED 10/22 with abdominal/back pain, chills, dysuria and hematuria. Bilateral nephrolithiasis w/left sided hydronephrosis--stable -Admit to med/surg. Transferred to [facility] as below -Renal US shows mild left hydronephrosis. No ureteral calculi identified although these are often occult by sonography. Extensive bilateral nephrolithiasis. -IVF d/c'd -Flomax 0.4 mg PO qhs -Strain urine. 1 stone passed in ED, sent for analysis -Urology consulted, appreciate recs: Cystoscopy with left stent placement and retrograde pyelogram on 10/24. Pt will need outpatient follow up for definitive stone treatment. -Pre op CXR shows some mild pulmonary vascular congestion, atelectasis in RLL -Would avoid further Dilaudid -CT abdomen/pelvis shows mild left-sided hydroureteronephrosis secondary to 7 x 5 x 6 mm calculus of the left ureteropelvic junction. Additionally, there is an obstructing 4 x 3 x 3 mm calculus of the distal left ureter just proximal to the ureterovesicular junction. Bilateral nephrolithiasis redemonstrated. Small layering calculi are seen within the dependent urinary bladder lumen. Prostatomegaly. -Morphine 2 mg IV q2h prn pain -Zofran 4 mg IV q4h prn nausea GO secondary to ureteral stones, hydronephrosis and dehydration--resolved -Creatinine remains stable, < 1 -IVF d/c'd A-fib with RVR--improving -Transferred to tele 10/24. Pt mostly rate controlled overnight but then HR went up to 150s-160s this morning for several hours before receiving morning dilt dose -Continue Lopressor 100 mg PO BID -Weaned off dilt drip -Cardiology consulted, appreciate recs: Continue digoxin and Lopressor at current doses. Convert diltiazem to 180 mg PO qd -Persistent tachycardia, increase diltiazem to 240 mg PO qd. Pt already received 180 today, will give an additional 60 mg this morning -Digoxin 125 mcg PO qd -Digoxin level 1.4 on 10/26 -Recheck digoxin level -Echo shows LVEF 65-70%, no WMA -INR 2.8 on 10/28. D/C heparin drip -Continue warfarin 2 mg PO qd -Magnesium 1.7 on 10/27. Magnesium sulfate 1 gm IV qd, magnesium oxide 400 mg PO BID. Recheck magnesium at 1400 Hematuria secondary to cystoscopy--improving -Hemoglobin stable HTN, HLD, CAD, h/o PR and CVA--stable -Continue Lopressor as above and atorvastatin 40 mg PO qd Dementia -Continue Exelon 3 mg PO qd DVT prophylaxis -Warfarin therapeutic -SCDs Code Status -Level I, FULL RESUSCITATION STATUS
[2016-10-28] MEDS: MAGNESIUM OXIDE 400 MG TAB PO SCH ×2 (12:03→23:13)
[2016-10-28] MEDS: DIGOXIN 0.125 MG TAB PO SCH (16:15)
[2016-10-28] MEDS: WARFARIN SOD 2 MG TAB PO SCH (16:16)
[2016-10-28] MEDS: ATORVASTATIN 40 MG TAB PO SCH (20:44)
[2016-10-28] MEDS: TAMSULOSIN HCL 0.4 MG CAP PO SCH (20:44)
[2016-10-28] MEDS: CHOLECALCIFEROL 1000 INTER.UNIT TAB PO SCH (20:44)
[2016-10-29 03:57] VITALS: BP 152/89; PULSE 81; TEMP 36.9; O2SAT 98
[2016-10-29 07:18] VITALS: BP 119/81; PULSE 104; TEMP 36.6; O2SAT 99
[2016-10-29 07:20] LABS: INR 2.8 (0.9-1.1); PROTHROMBIN TIME (PATIENT) 30.8 SECONDS (9.0-12.0)
[2016-10-29] MEDS: RIVASTIGMINE TARTRATE (EXELON) 1.5 MG CAP PO SCH (08:07)
[2016-10-29] MEDS: ASPIRIN 81 MG ECTAB PO SCH (08:07)
[2016-10-29] MEDS: METOPROLOL TARTRATE 100 MG TAB PO SCH (08:07)
[2016-10-29] MEDS ORDERED: DILTIAZEM HCL 240 MG CAPCR PO SCH (09:00)
[2016-10-29] MEDS: CIPROFLOXACIN 500 MG TAB PO SCH (10:30)
[2016-10-29] MEDS: MAGNESIUM OXIDE 400 MG TAB PO SCH (10:30)
[2016-10-29] MEDS: ACETAMINOPHEN 325 MG TAB PO PRN (11:24)
[2016-10-29 11:42] VITALS: BP 107/75; PULSE 81; TEMP 36.7; O2SAT 97
[2016-10-29] MEDS ORDERED: CRDCD240 PO (12:51)
[2016-10-29] MEDS ORDERED: LNX125 PO (12:51)
[2016-10-29] MEDS ORDERED: MGNO400 PO (12:51)
[2016-10-29] MEDS ORDERED: FLM4 PO (12:51)
--- NOTE | 2016-10-29 13:13 | Discharge Instructions ---
Discharge Instructions Date of Service Oct 29, 2016. Admission Reason for Admission: Hydronephrosis Discharge Discharge Diagnosis / Problem: Hydronephrosis, atrial fibrillation with rapid ventricular response Discharge Goals Goal(s): Decrease discomfort, Improve function, Diagnostic testing, Therapeutic intervention Activity Recommendations Activity Limitations: resume your previous activity (as tolerated) . Instructions / Follow-Up Instructions / Follow-Up You were admitted to the hospital with abdominal pain, chills, dysuria and hematuria. You were found to have 2 obstructing stones in your left ureter. You were given IV fluids, pain medications and a medication called Flomax to help you pass the stone. A cystoscopy was done by urology and a stent was placed in the left ureter. You will need to follow up with urology as an outpatient for more definitive treatment of the stones. During your hospital stay, you developed atrial fibrillation with rapid ventricular response, in which your heart rate became very elevated. You were initially placed on an IV drip of a medication called diltiazem to help control your rate. Cardiology was consulted. You were placed back on digoxin, which is a rate control medication that you had been on in the past. You now have adequate heart rate control with the addition of oral diltiazem and low dose digoxin in addition to your previous metoprolol. You are now medically stable for discharge. Medications: *Please take diltiazem 240 mg by mouth daily and digoxin 0.125 mg by mouth daily. These are medications to help control your heart rate. *Please take magnesium oxide 400 mg by mouth twice daily, as you were found to have low magnesium levels while in the hospital, and low magnesium can cause dangerous arrhythmias. *Please take Flomax (tamsulosin) 0.4 mg by mouth daily at least until you follow up with urology. This medication may help you pass your kidney stones. *Continue your other home medications as prescribed. Follow up: *You will be scheduled to follow up with urology as an outpatient due to your kidney stones for more definitive treatment. *You will also be scheduled to follow up with your primary care provider in 1 week following discharge regarding your hospitalization and changes to your medications, as well as cardiology in the next few weeks to follow your atrial fibrillation. Please seek medical attention if you experience fevers, chills, sweats, dizziness/lightheadedness, loss of consciousness, fall, chest pain, shortness of breath, nausea, vomiting, numbness or tingling. Current Hospital Diet Patient's current hospital diet: Regular Diet Discharge Diet Recommended Diet: AHA Diet (Heart Healthy) Procedures Procedures Performed: Cystoscopy Left Stent Placement ([id number]), Retrograde Pyelogram, Echocardiogram Pending Studies Studies pending at discharge: no Laboratory Results Hemoglobin A1c Test 08/29/16 13:07 Range/Units Estimated Average Glucose 128 mg/dl Hemoglobin A1c 6.1 H 4.5-5.6 % Medical Emergencies . Who to Call and When: Medical Emergencies: If at any time you feel your situation is an emergency, please call 911 immediately. . Non-Emergent Contact Non-Emergency issues call your: Primary Care Provider, [employer], Urologist Call Non-Emergent contact if: you have a fever, your pain is not controlled, your pain is worsening, your pain is unusual for you, your pain is concerning you, you have any medication questions . Past History Medical & Surgical History: (1) Hydronephrosis (2) Renal calculus, left (3) Atrial fibrillation with RVR . "Provider Documentation" section prepared by Sylvia Tavera. . VTE Core Measure Inpt VTE Proph given/why not?: Warfarin (Coumadin), SCD's
--- NOTE | 2016-10-29 13:23 | Discharge Summary ---
Discharge Summary Date of Service Oct 29, 2016. (Sylvia Tavera PA-C) Discharge Summary Admission Date: Oct 22, 2016 at 09:30 Discharge Date: Oct 29, 2016 Discharge Disposition: Home Principal Diagnosis: Hydronephrosis secondary to left ureteral stones, a-fib with RVR Problems/Secondary Diagnoses: (1) CVA (cerebral infarction) Status: Chronic (2) S/P PTCA (percutaneous transluminal coronary angioplasty) Status: Chronic (3) Total knee replacement status Status: Chronic Immunizations: Have You Had Influenza Vaccine: Yes Influenza Vaccine Date: Jan 09, 2006 History of Tetanus Vaccine?: Yes History of Pneumococcal: Yes History of Hepatitis B Vaccine: No Procedures: Cystoscopy and stent placement: Operative Report Operative Date Oct 24, 2016. Pre-Operative Diagnosis Left distal ureteral stone Post-Operative Diagnosis Left distal ureteral stone Procedure(s) Performed Cystoscopy Left Stent Placement ([id number]), Retrograde Pyelogram Surgeon Dr. Godinez School [employer] Surgeon(s) none Estimated Blood Loss 0 cc Findings Distal left ureteral stone; proximal left ureteral stone Specimens none per surgeon Drains [id number] Anesthesia MAC Complication(s) None Disposition Recovery Room / PACU (stable) Indications Left hydronephrosis; left ureteral stones 2 Description of Procedure Patient was identified in the preoperative holding area, appropriate informed consent reviewed and completed, and the patient was transported to the operating suite. Of note he received ciprofloxacin on the floor prior to transported to the operating suite. Adequate sedation was achieved, and the patient was placed in dorsal lithotomy position where he was sterilely prepped and draped in standard fashion. I begin the case by passing a 22 Kyr[place] cystoscope with 30 lens. Inspection of the bladder revealed no evidence of stones within the bladder nor bladder tumors. He additionally had no urethral strictures and a moderately enlarged prostate. After full inspection was carried out, I turned my attention to the left ureteral orifice and cannulated it with a sensor wire. This wire advanced the kidney without difficulty. A 10 Kyrgyz double-lumen catheter was advanced over the wire and into the distal ureter. Retrograde pyelogram was performed which revealed mild hydronephrosis and appropriate upper pole position of the wire. A [id number] double-J ureteral stent was placed, with a good curl observed in the kidney as well as the bladder. Bladder was decompressed and the case concluded. Patient was reversed from anesthesia and taken to the PACU in stable condition. I attest to the content of the Intraoperative Record and any orders documented therein. Any exceptions are noted below. Echocardiogram: Interpretation Summary * Name: SAMANTHA LENTZ Study Date: 10/25/2016 02:46 PM BP: 145/95 mmHg * Patient Location: .2T\S\S242\S\2 HR: 99 * : 1945 (M/d/yyyy) Gender: Male Height: 71 in * Age: 71 yrs Ethnicity: CA Weight: 200 lb * Ordering Physician: Gordon Villar * Performed By: Maggie Branham * * Reason For Study: A-FIB * BSA: 2.1 m2 * -- Conclusions -- * 1. Normal left ventricular size and systolic function. Estimated EF 65-70%. No regional wall motion abnormalities visualized. Mild concentric left ventricular hypertrophy. * 2. Mild biatrial dilation. * 3. Mild mitral regurgitation. * 4. Normal estimated right ventricular systolic pressure; 30 mmHg. * 5. Technically difficult study, enhanced with IV Definity. * 6. No prior study available for comparison. Procedure Details * A complete two-dimensional transthoracic echocardiogram was performed (2D, M- mode, Doppler and color flow Doppler). * The study was technically difficult. * There were technical limitations due to patient'sinability to cooperate * A contrast injection of Definity was performed to improve assessment of LV function. * Contrast was injected into an intravenous site in the left arm. * One vial of Definity ultrasound contrast was diluted in normal saline to a total volume of 10 ml. A total of '3' ml of solution was administered during imaging. * Lot # [id number] of Definity utilized for procedure. * Expiration date 12/06. * The attending nurse who injected the contrast agent was MATT ZABALA RN. Left Ventricle * Normal left ventricular size and systolic function. Estimated EF 65-70%. No regional wall motion abnormalities visualized. Mild concentric left ventricular hypertrophy. Right Ventricle * The right ventricle is normal in size and function. * The right ventricular systolic function is normal as assessed by tricuspid annular plane systolic excursion (TAPSE) (normal >1.5 cm). Atria * The left atrium is mildly dilated. * The right atrium is mildly dilated. * There is no evidence of atrial septal defect, but resolution does not allow assessment for a patent foramen ovale. Mitral Valve * The mitral valve is grossly normal. * There is no mitral valve stenosis. * There is mild mitral regurgitation. Tricuspid Valve * The tricuspid valve is not well visualized. * There is no tricuspid stenosis. * Significant tricuspid regurgitation is absent. Aortic Valve * The aortic valve is trileaflet. * No hemodynamically significant valvular aortic stenosis. * There is no significant aortic regurgitation. Pulmonic Valve * The pulmonary valve is inadequately visualized, but the Doppler data is adequate for interpretation. * There is no pulmonic valvular stenosis. * There is no significant pulmonary regurgitation. Great Vessels * The aortic root is normal size. * Aortic arch of normal dimension. * Ascending aorta of normal dimension Pericardium/Pleural * There is no pericardial effusion. Great Vessels * Normal inferior vena cava size and collapsability with sniff indicates a normal right atrial pressure of 3 mmHg Consultations: Urology--Dr. Ross/Dr. Godinez Cardiology--Dr. Tesfaye (Sylvia Tavera, PA-C) Medication Reconciliation New Medications: Digoxin (Digoxin) 0.125 Mg Tab 0.125 MG PO DAILY@16 for 30 Days, #30 TAB Diltiazem HCl (Diltiazem Cd) 240 Mg Capcr 240 MG PO QAM for 30 Days, #30 CAP Magnesium Oxide (Magnesium-Oxide) 400 Mg Tab 400 MG PO Q12H for 30 Days, #60 TAB Tamsulosin HCl (Tamsulosin HCl) 0.4 Mg Cap 0.4 MG PO HS for 30 Days, #30 CAP Continued Medications: Acetaminophen (Tylenol Arthritis Ext Rel) 650 Mg Cplt 2 TAB PO DAILY PRN for Pain Aspirin (Aspirin Chewable) 81 Mg Chew 81 MG PO QAM Atorvastatin (Lipitor) 40 Mg Tab 40 MG PO HS, TAB Cholecalciferol (Vitamin D3) 1,000 Unit Tab 1000 UNITS PO HS, TAB 3 Refills Metoprolol Tartrate (Lopressor) (Lopressor) 100 Mg Tab 100 MG PO BID, TAB Nitroglycerin (Nitrostat) 0.4 Mg Tab 0.4 MG UT PRN, BTL Rivastigmine Tartrate (Exelon) 3 Mg Cap 3 MG PO QAM, CAP Testosterone (Androgel Pump) 1.62 % Gel 40.5 MG TOP DAILY Warfarin Sod (Coumadin) 2 Mg Tab 2 MG PO DAILY Discharge Exam Patient reports feeling well. He denies any abdominal or flank pain. He is eating well and urinating without difficulty. He denies hematuria today. The patient denies fevers, chills, sweats, chest pain, palpitations, claudication, cough, wheezing, shortness of breath, nausea, vomiting, abdominal pain, dysuria , hematuria, urinary retention, paralysis, weakness, numbness and tingling. Review of Systems: Constitutional: No fever, No chills, No sweats Eyes: No worsening of vision, No eye pain, No diplopia ENT: No hearing loss, No sore throat, No trouble swallowing Respiratory: No cough, No wheezing, No shortness of breath Cardiovascular: No chest pain, No claudication, No palpitations Abdomen: No pain, No nausea, No vomiting Musculoskeletal: No joint pain, No muscle pain, No calf pain Genitourinary - Male: No hematuria, No dysuria, No urinary retention Neurologic: No paralysis, No weakness, No numbness/tingling Integumentary: No rash, No itch, No color change Physical Exam: General Appearance: WD/WN, no apparent distress Eyes: normal inspection, PERRL, EOMI ENT: normal ENT inspection, hearing grossly normal, pharynx normal Neck: supple, no JVD, trachea midline Respiratory/Chest: lungs clear, normal breath sounds, no respiratory distress Cardiovascular: no gallop, no murmur, + irregularly irregular (rate controlled) Abdomen / GI: normal bowel sounds, non tender, soft Extremities: normal inspection, no calf tenderness, + swelling (trace pitting edema) Neurologic/Psychiatric: alert, normal mood/affect, + disoriented ( disoriented to time. did not know month or year but did know [place] president) Skin: normal color, warm/dry, no rash (Sylvia Tavera ., MEL) Hospital Course 71 y/o male with a history of permanent a-fib on anticoagulation, HTN, HLD, CAD w/MT in 2003, h/o CVA 2010, dementia, and h/o bilateral nephrolithiasis who presents to the ED 10/22 with abdominal/back pain, chills, dysuria and hematuria. Bilateral nephrolithiasis w/left sided hydronephrosis--stable -Admit to med/surg. Transferred to tele as below -Renal US shows mild left hydronephrosis. No ureteral calculi identified although these are often occult by sonography. Extensive bilateral nephrolithiasis. -IVF d/c'd -Flomax 0.4 mg PO qhs. Will d/c with Flomax -Strain urine. 1 stone passed in ED, sent for analysis -Urology consulted, appreciate recs: Cystoscopy with left stent placement and retrograde pyelogram on 10/24. Pt will need outpatient follow up for definitive stone treatment. -Pre op CXR shows some mild pulmonary vascular congestion, atelectasis in RLL -Would avoid further Dilaudid -CT abdomen/pelvis shows mild left-sided hydroureteronephrosis secondary to 7 x 5 x 6 mm calculus of the left ureteropelvic junction. Additionally, there is an obstructing 4 x 3 x 3 mm calculus of the distal left ureter just proximal to the ureterovesicular junction. Bilateral nephrolithiasis redemonstrated. Small layering calculi are seen within the dependent urinary bladder lumen. Prostatomegaly. -Morphine 2 mg IV q2h prn pain -Zofran 4 mg IV q4h prn nausea GO secondary to ureteral stones, hydronephrosis and dehydration--resolved -Creatinine remains stable, < 1 -IVF d/c'd A-fib with RVR--improving -Transferred to [facility] 10/24. Pt in a-fib with HR 70s-80s overnight -Continue Lopressor 100 mg PO BID -Weaned off dilt drip -Cardiology consulted, appreciate recs: Continue digoxin and Lopressor at current doses. Convert diltiazem to 180 mg PO qd -Diltiazem 240 mg PO qd -Digoxin 125 mcg PO qd -Digoxin level 1.4 on 10/26 -Repeat digoxin level 0.8 on 10/28 -Echo shows LVEF 65-70%, no WMA -INR 2.8 on 10/29 -Continue warfarin 2 mg PO qd -Magnesium 1.7 on 10/27. Magnesium sulfate 1 gm IV qd, magnesium oxide 400 mg PO BID. Magnesium now WNL. D/c with PO mag-ox Hematuria secondary to cystoscopy--improving -Hemoglobin stable HTN, HLD, CAD, h/o MT and CVA--stable -Continue Lopressor as above and atorvastatin 40 mg PO qd Dementia -Continue Exelon 3 mg PO qd DVT prophylaxis -Warfarin therapeutic -SCDs Code Status -Level I, FULL RESUSCITATION STATUS Total Time Spent: Greater than 30 minutes This includes examination of the patient, discharge planning, medication reconciliation, and communication with other providers. (Sylvia Tavera, PA-C) I agree with PA assessment and plan and have seen and examined pt myself Resting comfortably in bed No CP , SOB VSS Labs reviewed DC on diltiazem and coumadin PT eval, OK for DC home (Gordon Villar D.Steven) Discharge Instructions Please refer to the electronic Patient Visit Report (Discharge Instructions) for additional information. (Sylvia Tavera, STEPH-C) Follow-Up F/u urology regarding definitive stone treatment and s/p stent placement F/u cardiology regarding a-fib F/u PCP (Sylvia Tavera, STEPH-C) Additional Copies To Cassius Decker M.D.
[2016-10-29 13:34] VITALS: BP 107/75; PULSE 81; TEMP 36.7; O2SAT 97
[2016-11-09] MEDS ORDERED: MAGN400T6 PO (08:53)
[2016-11-09] MEDS ORDERED: LNX125 PO (08:53)
[2016-11-09] MEDS ORDERED: DILT-115 PO (08:53)
[2016-11-09] MEDS ORDERED: LISI-461 PO (08:53)
[2016-11-09] MEDS ORDERED: TAMS0.4C38 PO (08:53)
[2016-11-17] MEDS ORDERED: OXYB5TAB PO (08:02)
[2016-11-17] MEDS ORDERED: ENOX80IN SQ (08:02)
[2016-11-17] MEDS ORDERED: PHEN-876 PO (08:02)
[2016-11-17] MEDS ORDERED: DILT-113 PO (08:32)
[2016-11-17] MEDS ORDERED: HYDR-5688 PO (10:47)
== END 2016-10-29 14:47 | disposition home or self-care (01) | DRG 694 ==
LOC: C.EDB 06:02 → C.MS2W 09:30 → ENRESERV 09:46 → C.2T 10-24 12:04
PROVIDERS: ADMIT Hospitalist; ATTEND Hospitalist
PROC: 0T778DZ Dilation of Left Ureter with Intraluminal Device, Via Natural or Artificial Opening Endoscopic (ICD-10-PCS; principal; 2016-10-24 15:30)
PROC: BT14ZZZ Fluoroscopy of Kidneys, Ureters and Bladder (ICD-10-PCS; principal; 2016-10-24 15:30)
DX: N13.2 Hydronephrosis with renal and ureteral calculous obstruction (principal); N17.9 Acute kidney failure, unspecified; I48.2 Chronic atrial fibrillation; I25.10 Atherosclerotic heart disease of native coronary artery without angina pectoris; I11.9 Hypertensive heart disease without heart failure; E78.5 Hyperlipidemia, unspecified; I25.2 Old myocardial infarction; G30.9 Alzheimer's disease, unspecified; F02.80 Dementia in other diseases classified elsewhere, unspecified severity, without behavioral disturbance, psychotic disturbance, mood disturbance, and anxiety; N40.0 Benign prostatic hyperplasia without lower urinary tract symptoms; Z79.899 Other long term (current) drug therapy; Z79.01 Long term (current) use of anticoagulants; Z79.82 Long term (current) use of aspirin; Z87.442 Personal history of urinary calculi; Z86.73 Personal history of transient ischemic attack (TIA), and cerebral infarction without residual deficits; Z87.891 Personal history of nicotine dependence; Z51.81 Encounter for therapeutic drug level monitoring

== ENCOUNTER → 2016-11-01 | Outpatient (CLI) | payer BC ==
[~2016-11-01] MED LIST changes: +CRDCD240 PO; +DILT-113 PO; +DILT-115 PO; +ENOX80IN SQ; +FLM4 PO; +HYDR-5688 PO; +LISI-461 PO; +LNX125 PO; +MAGN400T6 PO; +MGNO400 PO; +OXYB5TAB PO; +PHEN-876 PO; +TAMS0.4C38 PO
--- NOTE | 2016-11-01 13:35 | DIAGNOSTIC IMAGING REPORT ---
(CHEST) THORAX WITHOUT CLINICAL HISTORY: R91.1 Solitary pulmonary [id number] COMPARISON STUDY: 03/21/2016 CT DOSE: 510.39 mGy.cm TECHNIQUE: CT of the thorax was performed from the thoracic inlet to the lung bases. Images are reviewed in the axial, sagittal, and coronal planes. IV contrast was not administered for this examination. A dose lowering technique was utilized adhering to the principles of ALARA. FINDINGS: Thyroid: Imaged portions of the thyroid gland are normal in appearance. Thoracic aorta: The thoracic aorta is normal in course and caliber, noting standard 3 vessel arch anatomy. Heart: The heart is mildly enlarged. There are coronary artery calcifications. Lungs and pleural spaces: No pleural effusions are visualized. There is no focal pulmonary consolidation. There are scattered calcified granulomas. There is a stable 8 mm mixed solid and groundglass left apical pulmonary nodule. Mediastinum: There are stable mediastinal lymph nodes at the upper limits of normal in size Olya: There are calcified hilar lymph nodes. There is no pathologic hilar adenopathy given the limitations of a noncontrast study Axilla: There is no evidence of pathologic axillary lymphadenopathy Upper abdomen: There is a partially visualized 11 mm left renal cyst Skeletal structures: There are nonspecific erosive changes involving the posterior cortex of the manubrium. This finding is of doubtful clinical significance. There is no associated soft tissue mass. IMPRESSION: 1. Stable indeterminate 8 mm mixed solid and groundglass left apical pulmonary nodule Electronically signed by: Rayshawn Jones M.D. 11/01/2016 1:34 PM Dictated Date/Time: 11/01/2016 1:20 PM
== END | disposition home or self-care (01) ==
LOC: C.CTS 12:47
PROVIDERS: ATTEND Internal Medicine Pulmonary Disease
DX: R91.1 Solitary pulmonary nodule (principal)

== ENCOUNTER → 2016-11-06 | Outpatient (CLI) | payer BC ==
[2016-11-06 17:36] LABS: BLOOD UREA NITROGEN 26 mg/dl (7-18); BUN/CREATININE RATIO 17.3 (10-20); CALCIUM 9.6 mg/dl (8.5-10.1); CARBON DIOXIDE 28 mmol/L (21-32); CHLORIDE 101 mmol/L (98-107); GLUCOSE 108 mg/dl (70-99); MAGNESIUM 2.2 mg/dl (1.8-2.4); POTASSIUM 4.8 mmol/L (3.5-5.1); SODIUM 137 mmol/L (136-145)
== END | disposition home or self-care (01) ==
LOC: C.LAB 16:19
PROVIDERS: ATTEND Physician Assistant Medical
DX: R68.89 Other general symptoms and signs (principal); I10 Essential (primary) hypertension; I48.2 Chronic atrial fibrillation; Z51.81 Encounter for therapeutic drug level monitoring; Z79.01 Long term (current) use of anticoagulants; N40.1 Benign prostatic hyperplasia with lower urinary tract symptoms

== ENCOUNTER → 2016-11-07 | Outpatient (CLI) | payer BC | END | disposition home or self-care (01) | LOC: C.LABSPEC 17:06 | PROVIDERS: ATTEND Urology | DX: N20.0 Calculus of kidney (principal) ==

== ENCOUNTER → 2016-11-07 | Outpatient (CLI) | payer BC ==
--- NOTE | 2016-11-07 11:34 | DIAGNOSTIC IMAGING REPORT ---
KUB CLINICAL HISTORY: 71 years-old Male presenting with left-sided kidney stones, follow-up. TECHNIQUE: Single supine view of the abdomen was obtained. COMPARISON: 10/19/[address] from 10/23/2016. FINDINGS: Left ureteral stent now in place. Bilateral nephrolithiasis again noted. The proximal left ureteral calculus seen on CT from 10/23/2016 and distal left ureteral calculus are not radiographically apparent, possibly indicating passage. Moderate stool burden and bowel gas mildly degrades evaluation. Mild gaseous distention of bowel. No convincing evidence of obstruction. No free gas. Lung bases clear. Normal osseous structures. IMPRESSION: 1. Interval placement of left ureteral stent. Previously noted proximal and distal left ureteral calculi not radiographically apparent, possibly indicating passage. 2. Bilateral nephrolithiasis. Electronically signed by: Hay Alvarado M.D. 11/07/2016 11:32 AM Dictated Date/Time: 11/07/2016 11:30 AM
== END | disposition home or self-care (01) ==
LOC: C.RAD 10:40
PROVIDERS: ATTEND Nurse Practitioner Family
DX: N20.0 Calculus of kidney (principal); Z96.0 Presence of urogenital implants

== ENCOUNTER → 2016-11-13 | Outpatient (CLI) | payer BC ==
[~2016-11-13] MED LIST changes: -CRDCD240 PO; -FLM4 PO; -MGNO400 PO
[2016-11-13 13:52] LABS: BLOOD UREA NITROGEN 19 mg/dl (7-18); BUN/CREATININE RATIO 15.4 (10-20); CALCIUM 9.5 mg/dl (8.5-10.1); CARBON DIOXIDE 27 mmol/L (21-32); CHLORIDE 103 mmol/L (98-107); GLUCOSE 112 mg/dl (70-99); POTASSIUM 4.4 mmol/L (3.5-5.1); SODIUM 139 mmol/L (136-145)
== END | disposition home or self-care (01) ==
LOC: C.LABBC 11:52
PROVIDERS: ATTEND Internal Medicine Geriatric Medicine
DX: R79.89 Other specified abnormal findings of blood chemistry (principal); Z51.81 Encounter for therapeutic drug level monitoring; Z79.899 Other long term (current) drug therapy

== ENCOUNTER → 2016-11-17 | Day surgery (SDC) | payer BC ==
[2016-11-09 08:53] VITALS: Ht 180.3 cm; Wt 86.8 kg
--- NOTE | 2016-11-16 14:06 | DIAGNOSTIC IMAGING REPORT ---
KUB HISTORY: Nephrolithiasis follow-up study. N20.0 NephrolithiasisTO BE DONE EITHER THE NIGHT BEFORE OR MORNI COMPARISON: KUB radiograph 11/07/2016. FINDINGS: The bowel gas pattern is non-obstructive. There is no organomegaly. Left-sided ureteral stent is again noted without calculi seen along the course of the left ureter. Multiple bilateral nephrolithiasis redemonstrated. No pneumoperitoneum or pneumatosis. No fracture. IMPRESSION: 1. Left-sided ureteral stent in place without definite calculi seen along the course of the left ureter. 2. Bilateral nephrolithiasis redemonstrated. Electronically signed by: Jed Vital M.D. 11/16/2016 2:05 PM Dictated Date/Time: 11/16/2016 1:56 PM
[~2016-11-17] VITALS: Ht 180.3 cm; Wt 86.8 kg
[~2016-11-17] MED LIST changes: +ATROPINE SULFATE 0.1 MG/ML 5ML SYR IV PRN; +CIPROFLOXACIN 400MG / D5W IV SCH; +EpHEDrine SULFATE INJ 50 MG/ML AMP IV PRN; +FENTANYL CITRATE INJ 50 MCG/1 ML 2 ML VIAL IV PRN; +FENTANYL CITRATE INJ 50 MCG/1 ML 2 ML VIAL ONE; +HYDROCODONE/ACETAMOPHEN 5/325MG TAB PO PRN; +LACTATED RINGER'S 1000ML 1,000 ML IV SCH; +LIDOCAINE HCL 2% 2 ML VIAL (20MG/ML) ONE; +PROPOFOL IV EMULSION 10 MG/ML 20 ML VIAL IV ONE; +SODIUM CHLORIDE 0.9% 1000ML 1,000 ML IV SCH
[2016-11-17 08:51] LABS: INR 1.2 (0.9-1.1); PROTHROMBIN TIME (PATIENT) 12.4 SECONDS (9.0-12.0)
--- NOTE | 2016-11-17 10:00 | History & Physical Bridge Note ---
H&P Re-Evaluation Bridge Note: I have examined the patient, reviewed the History & Physical and in the interval since the performance of the History & Physical I have noted the following changes of clinical significance: No changes noted
--- NOTE | 2016-11-17 10:52 | Discharge Instructions-SurgCtr ---
Discharge Instructions Date of Service Nov 17, 2016. Visit Reason for Visit: Stones Discharge Discharge Diagnosis / Problem: stones Discharge Goals Goal(s): Decrease discomfort, Improve function, Increase independence, Improve disease control, Prevent Disease Progression Medications Stopped Medications Name(s): COUMADIN HELD PER COUMADIN CLINIC, LOVENOX STARTED. Activity Recommendations Activity Limitations: resume your previous activity Lifting Limitations: none Exercise/Sports Limitations: none May Resume Sexual Activity: when tolerated Shower/Bathe: no limitations Driving or Machine Use: resume 1 day after discharge Please keep your previously scheduled appointment for stent removal. Anesthesia . Post Anesthesia Instructions: If you have had General Anesthesia or IV Sedation: * Do not drive today. * Resume driving when surgeon permits. * Do not make important decisions or sign legal documents today. * Call surgeon for: 1. Temperature elevations greater than 101 degrees F. 2. Uncontrollable pain. 3. Excessive bleeding. 4. Persistent nausea and vomiting. 5. Medication intolerance (nausea, vomiting or rash). * For nausea and vomiting use only clear liquids such as: tea, soda, bouillon until nausea subsides, then gradually increase diet as tolerated. * If you have any concerns or questions, call your surgeon's office. If physician is unavailable and it is an emergency, call 911 or go to the nearest emergency room. . Diet Recommendations Home Diet: no limitations, resume previous diet Pending Studies Studies pending at discharge: no Medical Emergencies . Who to Call and When: Medical Emergencies: If at any time you feel your situation is an emergency, please call 911 immediately. . Non-Emergent Contact Non-Emergency issues call your: Urologist Call Non-Emergent contact if: you have a fever, temperature is above 101.5, your pain is not controlled, your pain is worsening . . "Provider Documentation" section prepared by Rubio Garrison. . [place] Drug Monitoring Program Search Results: patient reviewed within database, no issues identified
--- NOTE | 2016-11-17 10:56 | [facility] Operative Report ---
Operative Report Operative Date Nov 17, 2016. Pre-Operative Diagnosis Left renal stone Post-Operative Diagnosis Left renal stone Procedure(s) Performed Left ESWL Surgeon Yobani Godinez [employer] Surgeon(s) none Estimated Blood Loss 0 Findings Left ureteral stent; left renal stones Drains none Anesthesia Gen. Complication(s) None Disposition Recovery Room / PACU (stable) Indications Left renal stones status post prior stent Description of Procedure Ricardo Krishnan was identified in the preoperative holding area, appropriate informed consent was reviewed and completed and the patient was transported to the operating suite. Upon arrival appropriate preoperative antibiotics were administered and general anesthesia induced. The patient was placed in supine position and the stone was localized under fluoroscopy. A total of 2500 shocks were delivered to the stone. There appeared to be good fragmentation of the stone. Details of this procedure can be found on the [facility] information sheet. At the conclusion of the case the patient was extubated and taken to the PACU in stable condition. There were no complications. I attest to the content of the Intraoperative Record and any orders documented therein. Any exceptions are noted below.
[2016-11-17 11:52] VITALS: TEMP 36.4
--- NOTE | 2016-11-17 12:21 | Anesthesia Progress Nt - [facility] ---
Anesthesia Post Op Note Date & Time Nov 17, 2016 at 12:21 Vital Signs Pain Intensity: 0 Vital Signs Past 12 Hours Date Time Temp Pulse Resp B/P (MAP) Pulse Ox O2 Delivery O2 Flow Rate FiO2 11/17/16 11:52 36.4 69 20 103/59 (74) 94 Room Air 11/17/16 11:47 67 19 11/17/16 11:47 59 19 96 11/17/16 11:46 116/59 11/17/16 11:43 36.3 69 20 116/59 96 Room Air 11/17/16 11:42 71 17 11/17/16 11:42 66 17 94 11/17/16 11:41 111/64 11/17/16 11:37 77 24 11/17/16 11:37 76 24 92 11/17/16 11:36 116/69 11/17/16 11:32 66 16 96 11/17/16 11:32 65 16 11/17/16 11:31 126/69 11/17/16 11:27 67 16 98 11/17/16 11:27 68 16 11/17/16 11:26 119/69 11/17/16 11:22 69 13 11/17/16 11:22 62 13 98 11/17/16 11:21 110/63 11/17/16 11:18 104/62 11/17/16 11:17 36.6 88 16 104/62 97 Mask 6 11/17/16 11:17 67 94 11/17/16 11:17 67 11/17/16 08:07 36.5 84 22 118/73 (88) 96 Room Air Notes Mental Status: alert / awake / arousable, participated in evaluation Pt Amnestic to Procedure: Yes Nausea / Vomiting: adequately controlled Pain: adequately controlled Airway Patency, RR, SpO2: stable & adequate BP & HR: stable & adequate Hydration State: stable & adequate Anesthetic Complications: no major complications apparent
[2016-11-17 12:31] VITALS: BP 116/72; PULSE 66; O2SAT 94
== END | disposition home or self-care (01) ==
LOC: X.SURG 06:45
PROVIDERS: ATTEND Urology
DX: N20.0 Calculus of kidney (principal); I25.10 Atherosclerotic heart disease of native coronary artery without angina pectoris; E11.9 Type 2 diabetes mellitus without complications; I48.91 Unspecified atrial fibrillation; E78.5 Hyperlipidemia, unspecified; F03.90 Unspecified dementia, unspecified severity, without behavioral disturbance, psychotic disturbance, mood disturbance, and anxiety; K21.9 Gastro-esophageal reflux disease without esophagitis; I10 Essential (primary) hypertension; Q98.4 Klinefelter syndrome, unspecified; I25.2 Old myocardial infarction; G20 Parkinson's disease; Z86.73 Personal history of transient ischemic attack (TIA), and cerebral infarction without residual deficits; Z96.659 Presence of unspecified artificial knee joint; Z68.26 Body mass index [BMI] 26.0-26.9, adult; Z79.899 Other long term (current) drug therapy; Z79.82 Long term (current) use of aspirin; Z79.01 Long term (current) use of anticoagulants

== ENCOUNTER 2016-11-27 14:39 | Emergency (ER) | payer BC ==
[~2016-11-27] VITALS: Ht 180.3 cm; Wt 86.1 kg
[2016-11-27 14:46] VITALS: TEMP 36.6; Ht 180.3 cm; Wt 86.1 kg
[2016-11-27 15:01] VITALS: O2SAT 95
--- NOTE | 2016-11-27 15:05 | EMERGENCY ROOM VISIT NOTE ---
History Report prepared by Arina: Chris Garcia Under the Supervision of: Dr. Rubens Quijano M.D. First contact with patient: 14:55 Chief Complaint: ILLNESS Stated Complaint: CRAMPING IN HANDS,FEET,NECK PAIN History of Present Illness The patient is a 71 year old male who presents to the Emergency Room with complaints of intermittent migrating cramps that began two days ago. Each time, the cramping lasts only a couple of minutes. His symptoms began in his left hand. Yesterday, he had the cramps in his right hand. Today, the cramping was in his feet. He is also nauseated and dry heaving intermittently. He currently feels back to his baseline without any symptoms. He denies any chest pain or shortness of breath. He was recently treated as an inpatient for a kidney stone. They noticed his magnesium was low. They altered his medications, and he is following up with Dr. Rivero of Urology. He is currently on Warfarin. He notes some intermittent leg swelling for a while. Source of History: patient Onset: two days ago Position: other (Global) Symptom Intensity: Resolved Quality: cramping Timing: resolved Associated Symptoms: No chest pain, No SOB, No nausea, No vomiting Note: He has been experiencing bilateral leg edema for a while, but it got worse since he was in the hospital. Review of Systems See HPI for pertinent positives and negatives. A total of ten systems were reviewed and were otherwise negative. Past Medical & Surgical Medical Problems: (1) Atrial fibrillation (2) CAD (coronary artery disease) (3) Cellulitis of right lower extremity without foot (4) CVA (cerebral infarction) (5) DJD (degenerative joint disease) of knee (6) Hx of renal calculi (7) Hydronephrosis (8) Hydronephrosis (9) Hyperlipidemia (10) Hypertension (11) Renal calculus, left Surgical Problems: (1) S/P PTCA (percutaneous transluminal coronary angioplasty) (2) Total knee replacement status Family History No pertinent family history Social History Smoking Status: Former Smoker Alcohol Use: none Drug Use: none Marital Status: Housing Status: lives with significant other Occupation Status: retired Current/Historical Medications Scheduled Aspirin (Aspirin Chewable), 81 MG PO QAM Atorvastatin (Lipitor), 40 MG PO HS Cholecalciferol (Vitamin D3), 1,000 UNITS PO HS Diltiazem Hcl Ext Rel (Tiazac), 180 MG PO DAILY Lisinopril (Zestril), 10 MG PO QAM Metoprolol Tartrate (Lopressor) (Lopressor), 100 MG PO BID Nitroglycerin (Nitrostat), 0.4 MG UT PRN Phenazopyridine HCl (Pyridium), 200 MG PO TID Rivastigmine Tartrate (Exelon), 3 MG PO QAM Testosterone (Androgel Pump), 40.5 MG TOP DAILY Warfarin Sod (Coumadin), 2 MG PO QAM Scheduled PRN Acetaminophen (Tylenol Arthritis Ext Rel), 2 TAB PO DAILY PRN for Pain Allergies Coded Allergies: Adhesives (Verified Allergy, Intermediate, BLISTERS, 11/27/16) Alcohol (Verified Allergy, Unknown, RUBBING ALCOHOL MADE SHORTNESS OF BREATH, 11/27/16) NO KNOWN DRUG ALLERGIES (Verified Allergy, Unknown, ., 11/27/16) Physical Exam Vital Signs Date Time Temp Pulse Resp B/P (MAP) Pulse Ox O2 Delivery O2 Flow Rate FiO2 11/27/16 18:55 72 20 118/67 99 11/27/16 18:17 72 118/67 11/27/16 17:50 76 20 97/75 99 Room Air 11/27/16 16:33 63 20 115/75 95 Room Air 11/27/16 15:01 95 Room Air 11/27/16 14:59 65 11/27/16 14:46 36.6 76 20 121/82 95 Room Air Physical Exam GENERAL: Awake, alert, well-appearing, in no distress HENT: Normocephalic, atraumatic. Dry mucous membranes. EYES: Normal conjunctiva. Sclera non-icteric. NECK: Supple. No nuchal rigidity. FROM. No JVD. RESPIRATORY: Clear to auscultation. CARDIAC: Regular rate, normal rhythm. Extremities warm and well perfused. Pulses equal. ABDOMEN: Soft, non-distended. No tenderness to palpation. No rebound or guarding. No masses. RECTAL: Deferred. MUSCULOSKELETAL: Chest examination reveals no tenderness. The back is symmetrical on inspection without obvious abnormality. There is no CVA tenderness to palpation. No joint edema. No muscle rigidity. LOWER EXTREMITIES: Calves are non-tender. 2+ RLE edema and 1+ LLE edema. No discoloration. NEURO: Normal sensorium. No sensory or motor deficits noted. Normal reflexes. No clonus. Negative Chvostek's sign. SKIN: No rash or jaundice noted. Medical Decision & Procedures ER Provider Diagnostic Interpretation: Radiology results as stated below per my review and radiologist interpretation: SINGLE VIEW CHEST CLINICAL HISTORY: Atypical chest pain. FINDINGS: An AP, portable, upright chest radiograph is compared to study dated 10/23/2016 and correlated with chest CT dated 11/01/2016. The examination is degraded by portable technique and patient rotation. The heart is enlarged. The mediastinal contour is within normal limits. Chronic interstitial thickening is similar to previous. A small calcified granuloma is again seen in the left lower lobe. No airspace consolidation, large pleural effusion, or pneumothorax is seen. The skeletal structures are osteopenic. Degenerative change and scoliosis are noted in the thoracic spine. IMPRESSION: Cardiomegaly with no acute cardiopulmonary abnormality. Electronically signed by: Emile Neal M.D. 11/27/2016 3:52 PM Dictated Date/Time: 11/27/2016 3:51 PM Laboratory Results 11/27/16 15:00 Red Blood Count 3.92, Mean Corpuscular Volume 94.9, Mean Corpuscular Hemoglobin 30.4, Mean Corpuscular Hemoglobin Concent 32.0, Mean Platelet Volume 10.1, Neutrophils (%) (Auto) 70.8, Lymphocytes (%) (Auto) 19.5, Monocytes (%) (Auto) 5.4, Eosinophils (%) (Auto) 3.5, Basophils (%) (Auto) 0.5, Neutrophils # (Auto) 5.23, Lymphocytes # (Auto) 1.44, Monocytes # (Auto) 0.40, Eosinophils # (Auto) 0.26, Basophils # (Auto) 0.04 11/27/16 15:00 Test 11/27/16 15:00 11/27/16 15:38 White Blood Count 7.39 K/uL (4.8-10.8) Red Blood Count 3.92 M/uL (4.7-6.1) Hemoglobin 11.9 g/dL (14.0-18.0) Hematocrit 37.2 % (42-52) Mean Corpuscular Volume 94.9 fL (80-100) Mean Corpuscular Hemoglobin 30.4 pg (25-34) Mean Corpuscular Hemoglobin Concent 32.0 g/dl (32-36) Platelet Count 165 K/uL (130-400) Mean Platelet Volume 10.1 fL (7.4-10.4) Neutrophils (%) (Auto) 70.8 % Lymphocytes (%) (Auto) 19.5 % Monocytes (%) (Auto) 5.4 % Eosinophils (%) (Auto) 3.5 % Basophils (%) (Auto) 0.5 % Neutrophils # (Auto) 5.23 K/uL (1.4-6.5) Lymphocytes # (Auto) 1.44 K/uL (1.2-3.4) Monocytes # (Auto) 0.40 K/uL (0.11-0.59) Eosinophils # (Auto) 0.26 K/uL (0-0.5) Basophils # (Auto) 0.04 K/uL (0-0.2) RDW Standard Deviation 53.0 fL (36.4-46.3) RDW Coefficient of Variation 15.3 % (11.5-14.5) Immature Granulocyte % (Auto) 0.3 % Immature Granulocyte # (Auto) 0.02 K/uL (0.00-0.02) Prothrombin Time 41.4 SECONDS (9.0-12.0) Prothromb Time International Ratio 3.7 (0.9-1.1) Anion Gap 7.0 mmol/L (3-11) Est Creatinine Clear Calc Drug Dose 77.0 ml/min Estimated GFR () 93.6 Estimated GFR (Non- 80.8 BUN/Creatinine Ratio 17.2 (10-20) Calcium Level 9.1 mg/dl (8.5-10.1) Phosphorus Level 3.0 mg/dl (2.5-4.9) Magnesium Level 2.3 mg/dl (1.8-2.4) Total Bilirubin 1.0 mg/dl (0.2-1) Direct Bilirubin 0.3 mg/dl (0-0.2) Aspartate Amino Transf (AST/SGOT) 17 U/L (15-37) Alanine Aminotransferase (ALT/SGPT) 28 U/L (12-78) Alkaline Phosphatase 115 U/L (45-117) Total Creatine Kinase 77 U/L (39-308) Troponin I < 0.015 ng/ml (0-0.045) Pro-B-Type Natriuretic Peptide 903 pg/ml (0-900) Total Protein 7.8 gm/dl (6.4-8.2) Albumin 3.9 gm/dl (3.4-5.0) Lipase 351 U/L (73-393) Urine Color ORANGE Urine Appearance CLOUDY (CLEAR) Urine pH (4.5-7.5) Urine Specific [place] 1.016 (1.000-1.030) Urine Protein (NEG) Urine Glucose (UA) (NEG) Urine Ketones (NEG) Urine Occult Blood (NEG) Urine Nitrite (NEG) Urine Bilirubin (NEG) Urine Urobilinogen (NEG) Urine Leukocyte Esterase (NEG) Urine RBC >30 /hpf (0-4) Urine WBC 1-5 /hpf (0-5) Urine Epithelial Cells 10-20 /lpf (0-5) Urine Bacteria NEG (NEG) Urine Hyaline Casts 1-5 /lpf (0-5) Laboratory results reviewed by me Medications Administered Medications (Trade) Dose Ordered Sig/Mariaa Route Start Time Stop Time Status Last Admin Dose Admin Sodium Chloride 500 ml @ 999 mls/hr Q31M STAT IV 11/27/16 17:26 11/27/16 17:56 DC 11/27/16 17:50 999 MLS/HR ECG Indication: other (Neurologic Symptoms) Rate (beats per minute): 65 Rhythm: atrial fibrillation Findings: no acute ischemic change, other (Normal axis) Comparison ECG Date: 26 Oct 2016 Change: no significant change ED Course 1455: The patient was evaluated in room A4A. A complete history and physical exam was performed. 1726: Ordered Sodium Chloride 500 ml @ 999 mls/hr IV 1855: I reevaluated the patient. Discussed results and discharge instructions: He verbalized understanding and agreement. The patient is ready for discharge. Medical Decision I reviewed the patient's past medical history, medications, and the nursing notes as described above. Differential diagnosis includes but is not limited to: dehydration, electrolyte abnormality, acute coronary syndrome, gastritis, pneumonia, bronchitis, and UTI. Patient is a 71-year-old man who presents to emergency department after having a lithotripsy on Sunday with muscle cramping and nausea but no vomiting. He is afebrile in no acute distress with stable vital signs. EKG unremarkable. Troponin negative. INR 3.7. Labs otherwise unremarkable including wbc, K, Mg, Phos. CpK unremarkable. Patient sx of cramping possible 2/2 to statin vs mild dehydration. Patient feeling improved after IVF. Unclear about gagging, coughing episode put patient describes cough up sputum and not n/v. CXR negative. Given patient is well-appearing, no further w/u indicated at this time. Will hold next coumadin dose. Has urology f/u tomorrow and will see pcp regarding ?statin use and sx and INR recheck. Findings and plan for follow-up reviewed with patient. Patient agreeable and d/c'd per discharge instructions. Medication Reconcilliation Current Medication List: was personally reviewed by me Blood Pressure Screening Patient's blood pressure: Normal blood pressure Blood pressure disposition: Did not require urgent referral Impression Primary Impression: Muscle cramping Scribe Attestation The scribe's documentation has been prepared under my direction and personally reviewed by me in its entirety. I confirm that the note above accurately reflects all work, treatment, procedures, and medical decision making performed by me. Departure Information Dispostion Home / Self-Care Referrals Cassius Decker M.D. (PCP) Forms HOME CARE DOCUMENTATION FORM, IMPORTANT VISIT INFORMATION, WORK / SCHOOL INSTRUCTIONS Patient Instructions ED Muscle Pain Leg Cramps, My [facility] Additional Instructions Please follow up with your urologist tomorrow as scheduled and with your primary care physician in the next 1-3 days for re-evaluation. Your symptoms may be due to your statin or possibly mild dehydration. Otherwise, your exam, EKG, chest xray, and lab results did not show signs of an emergent condition at this time. Return to the emergency department for worsening symptoms as described in the accompanying instructions.
[2016-11-27 15:26] LABS: BASO % 0.5 %; BASO ABS # 0.04 K/uL (0-0.2); COMPLETE YES; EOS % 3.5 %; HEMATOCRIT 37.2 % (42-52); IG% 0.3 %; LYMPH % 19.5 %; LYMPH ABS # 1.44 K/uL (1.2-3.4); MEAN CELL VOLUME 94.9 fL (80-100); MEAN CORPUSCULAR HEMOGLOBIN 30.4 pg (25-34); MEAN PLATELET VOLUME 10.1 fL (7.4-10.4); MONO % 5.4 %; NEUT % 70.8 %; PLATELET COUNT 165 K/uL (130-400); RED BLOOD COUNT 3.92 M/uL (4.7-6.1); WHITE BLOOD COUNT 7.39 K/uL (4.8-10.8)
[2016-11-27 15:41] LABS: PROTHROMBIN TIME (PATIENT) 41.4 SECONDS (9.0-12.0)
[2016-11-27 15:44] LABS: ALT/SGPT 28 U/L (12-78); BLOOD UREA NITROGEN 16 mg/dl (7-18); BUN/CREATININE RATIO 17.2 (10-20); CALCIUM 9.1 mg/dl (8.5-10.1); CARBON DIOXIDE 26 mmol/L (21-32); CHLORIDE 105 mmol/L (98-107); CREATININE 0.95 mg/dl (0.60-1.40); GLUCOSE 96 mg/dl (70-99); POTASSIUM 4.3 mmol/L (3.5-5.1); SODIUM 138 mmol/L (136-145)
[2016-11-27 15:47] LABS: INR 3.7 (0.9-1.1)
[2016-11-27 15:49] LABS: ALKALINE PHOSPHATASE 115 U/L (45-117); AST/SGOT 17 U/L (15-37)
--- NOTE | 2016-11-27 15:54 | DIAGNOSTIC IMAGING REPORT ---
SINGLE VIEW CHEST CLINICAL HISTORY: Atypical chest pain. FINDINGS: An AP, portable, upright chest radiograph is compared to study dated 10/23/2016 and correlated with chest CT dated 11/01/2016. The examination is degraded by portable technique and patient rotation. The heart is enlarged. The mediastinal contour is within normal limits. Chronic interstitial thickening is similar to previous. A small calcified granuloma is again seen in the left lower lobe. No airspace consolidation, large pleural effusion, or pneumothorax is seen. The skeletal structures are osteopenic. Degenerative change and scoliosis are noted in the thoracic spine. IMPRESSION: Cardiomegaly with no acute cardiopulmonary abnormality. Electronically signed by: Emile Neal M.D. 11/27/2016 3:52 PM Dictated Date/Time: 11/27/2016 3:51 PM
[2016-11-27 16:03] LABS: MAGNESIUM 2.3 mg/dl (1.8-2.4)
[2016-11-27 16:17] LABS: MANUAL MICROSCOPIC REQUIRED? YES; REVIEW REQ? NO; SULFASALICYLIC ACID POS (NEG); URINE APPEARANCE CLOUDY (CLEAR); URINE COLOR ORANGE
[2016-11-27 16:18] LABS: URINE SPECIFIC GRAVITY 1.016 (1.000-1.030)
[2016-11-27 16:22] LABS: URINE RBC >30 /hpf (0-4)
[2016-11-27 16:23] LABS: URINE BACTERIA NEG (NEG)
[2016-11-27 16:25] LABS: ZZUR CULT IF INDIC CLEAN CATCH NO
[2016-11-27] MEDS ORDERED: SODIUM CHLORIDE 0.9% 500ML 500 ML IV STA (17:26)
[2016-11-27 18:55] VITALS: BP 118/67; PULSE 72; O2SAT 99
== END 2016-11-27 18:55 | disposition home or self-care (01) ==
LOC: C.EDB 14:41 → C.EDA 18:55
DX: R25.2 Cramp and spasm (principal); R07.89 Other chest pain; M54.2 Cervicalgia; I51.7 Cardiomegaly; I25.10 Atherosclerotic heart disease of native coronary artery without angina pectoris; Z86.73 Personal history of transient ischemic attack (TIA), and cerebral infarction without residual deficits; Z96.659 Presence of unspecified artificial knee joint; Z79.01 Long term (current) use of anticoagulants; Z79.899 Other long term (current) drug therapy; Z87.891 Personal history of nicotine dependence

== ENCOUNTER → 2016-11-27 | Outpatient (CLI) | payer BC ==
[~2016-11-27] MED LIST changes: -ATROPINE SULFATE 0.1 MG/ML 5ML SYR IV PRN; -CIPROFLOXACIN 400MG / D5W IV SCH; -DILT-115 PO; -EpHEDrine SULFATE INJ 50 MG/ML AMP IV PRN; -FENTANYL CITRATE INJ 50 MCG/1 ML 2 ML VIAL IV PRN; -FENTANYL CITRATE INJ 50 MCG/1 ML 2 ML VIAL ONE; -HYDROCODONE/ACETAMOPHEN 5/325MG TAB PO PRN; -LACTATED RINGER'S 1000ML 1,000 ML IV SCH; -LIDOCAINE HCL 2% 2 ML VIAL (20MG/ML) ONE; -PROPOFOL IV EMULSION 10 MG/ML 20 ML VIAL IV ONE; -SODIUM CHLORIDE 0.9% 1000ML 1,000 ML IV SCH
--- NOTE | 2016-11-27 14:31 | DIAGNOSTIC IMAGING REPORT ---
KUB CLINICAL HISTORY: 71 years-old Male presenting with nephrolithiasis, follow-up. TECHNIQUE: Single supine view of the abdomen was obtained. COMPARISON: 11/16/2016. FINDINGS: Left ureteral stent remains in place. No calcifications along the course of the stent. Bilateral nephrolithiasis again noted. Nonobstructive bowel gas pattern. Mild stool burden. No gross pneumoperitoneum. Lung bases clear. Degenerative changes of the lower thoracic spine. IMPRESSION: 1. Left ureteral stent in place without radiographic evidence of ureteral calculus. 2. Bilateral nephrolithiasis. Electronically signed by: Hay Alvarado M.D. 11/27/2016 2:30 PM Dictated Date/Time: 11/27/2016 2:28 PM
== END | disposition home or self-care (01) ==
LOC: C.RAD 13:48
PROVIDERS: ATTEND Urology
DX: N20.0 Calculus of kidney (principal); Z96.0 Presence of urogenital implants

== ENCOUNTER → 2017-03-19 | Outpatient (CLI) | payer BC ==
[~2017-03-19] MED LIST changes: -ENOX80IN SQ; -HYDR-5688 PO; -LNX125 PO; -MAGN400T6 PO; -OXYB5TAB PO; -TAMS0.4C38 PO
[2017-03-19 16:45] LABS: BASO ABS # 0.07 K/uL (0-0.2); EOS % 3.4 %; EOS ABS # 0.24 K/uL (0-0.5); HEMATOCRIT 42.9 % (42-52); HEMOGLOBIN 13.9 g/dL (14.0-18.0); IG# 0.01 K/uL (0.00-0.02); LYMPH % 28.5 %; LYMPH ABS # 2.04 K/uL (1.2-3.4); MEAN CELL VOLUME 94.9 fL (80-100); MEAN CORPUSCULAR HEMOGLOBIN 30.8 pg (25-34); MEAN CORPUSCULAR HGB CONC 32.4 g/dl (32-36); MEAN PLATELET VOLUME 10.6 fL (7.4-10.4); MONO % 6.9 %; MONO ABS # 0.49 K/uL (0.11-0.59); NEUT % 60.1 %; PLATELET COUNT 189 K/uL (130-400); RED CELL DISTRIBUTION WIDTH CV 15.9 % (11.5-14.5); RED CELL DISTRIBUTION WIDTH SD 54.6 fL (36.4-46.3); WHITE BLOOD COUNT 7.15 K/uL (4.8-10.8)
[2017-03-19 16:55] LABS: BLOOD UREA NITROGEN 18 mg/dl (7-18); CALCIUM 9.1 mg/dl (8.5-10.1); CARBON DIOXIDE 27 mmol/L (21-32); CREATININE 0.97 mg/dl (0.60-1.40); GLUCOSE 92 mg/dl (70-99); POTASSIUM 4.5 mmol/L (3.5-5.1); SODIUM 137 mmol/L (136-145)
[2017-03-20 06:18] LABS: HEMOGLOBIN A1C 5.8 % (4.5-5.6)
== END | disposition home or self-care (01) ==
LOC: C.LABBC 14:44
PROVIDERS: ATTEND Internal Medicine Geriatric Medicine
DX: I10 Essential (primary) hypertension (principal); Z79.01 Long term (current) use of anticoagulants; E11.9 Type 2 diabetes mellitus without complications

== ENCOUNTER → 2017-03-30 | Outpatient (CLI) | payer BC ==
--- NOTE | 2017-03-30 08:02 | DIAGNOSTIC IMAGING REPORT ---
ULTRASOUND RIGHT UPPER QUADRANT ABDOMEN CLINICAL HISTORY: Thoracic back pain. COMPARISON STUDY: Abdominal CT dated 10/23/2016. TECHNIQUE: Real-time, grayscale, and color flow sonography of the right upper quadrant of the abdomen was performed. Images are reviewed in the transverse and longitudinal planes. FINDINGS: Liver: The liver is top normal in size and demonstrates heterogeneously increased echotexture suggesting steatosis. There is no intrahepatic biliary ductal dilatation. The main portal vein is patent. Gallbladder: The gallbladder is normal in appearance. No gallstones are identified. There is no gallbladder wall thickening or pericholecystic fluid. A sonographic Jackson's sign is reportedly absent. The common bile duct measures up to 0.5 cm in diameter. Pancreas: Imaged portions of the pancreatic head are grossly unremarkable. The majority the pancreas was not well visualized. Right kidney: Survey images of the right kidney demonstrate mild cortical atrophy. There is no hydronephrosis. Small shadowing calculi are noted. Ascites: None. IMPRESSION: 1. No acute sonographic abnormality is identified in the right upper quadrant. No gallstones are seen. 2. Suspect mild hepatic steatosis. 3. Nonobstructing right renal calculi. Electronically signed by: Emile Neal M.D. 03/30/2017 8:01 AM Dictated Date/Time: 03/30/2017 7:55 AM
== END | disposition home or self-care (01) ==
LOC: C.ULTR 07:19
PROVIDERS: ATTEND Internal Medicine Geriatric Medicine
DX: M54.6 Pain in thoracic spine (principal); N20.0 Calculus of kidney

== ENCOUNTER → 2017-05-01 | Outpatient (CLI) | payer BC ==
--- NOTE | 2017-05-01 11:58 | DIAGNOSTIC IMAGING REPORT ---
KUB CLINICAL HISTORY: Nephrolithiasis. FINDINGS: 2 AP supine abdominal radiographs are compared to study dated 11/27/2016 and correlated with abdominal CT dated 10/23/2016. There is a nonobstructed abdominal bowel gas pattern noting moderate colonic fecal retention. A left ureteral stent has been removed. There are numerous (less than 10) nonobstructing bilateral renal calculi. The largest stone on the right measures up to 9 mm the largest on the left measures up to 6 mm. There is no evidence of ureteral calculus. Scattered pelvic phleboliths are observed. The bony structures appear intact. IMPRESSION: 1. Again seen are numerous nonobstructing bilateral renal calculi. 2. There is no radiographic evidence of ureteral calculus. Electronically signed by: Emile Neal M.D. 05/01/2017 11:57 AM Dictated Date/Time: 05/01/2017 11:54 AM
== END | disposition home or self-care (01) ==
LOC: C.RAD 10:59
PROVIDERS: ATTEND Urology
DX: N20.0 Calculus of kidney (principal)

== ENCOUNTER 2017-06-14 08:01 | Inpatient (IN) | payer BC, OTHER ==
[2017-05-29 13:37] VITALS: BMI 28.0
--- NOTE | 2017-05-29 14:18 | PAT Medication Instructions ---
Service Date May 29, 2017. Current Home Medication List Acetaminophen (Tylenol), 650 MG PO Q4H PRN for RN Aspirin (Aspirin Chewable), 81 MG PO QAM Atorvastatin (Lipitor), 40 MG PO HS Cholecalciferol (Vitamin D3), 1,000 UNITS PO QPM Lisinopril (Zestril), 10 MG PO QAM Memantine (Namenda), 10 MG PO BID Metoprolol Tartrate (Lopressor) (Lopressor), 100 MG PO BID Nitroglycerin (Nitrostat), 0.4 MG UT PRN Phenazopyridine HCl (Pyridium), 200 MG PO TID PRN for PRN Rivastigmine Tartrate (Exelon), 3 MG PO QAM Testosterone (Androgel Pump), 40.5 MG TOP QAM Warfarin Sod (Coumadin), 2 MG PO QAM Medication Instructions For Your Scheduled Surgery -Check with your transport nurse for instructions for: Aspirin (Aspirin Chewable), 81 MG PO QAM -Continue as directed: Nitroglycerin (Nitrostat), 0.4 MG UT PRN -Follow your instructions from the Coumadin clinic: Warfarin Sod (Coumadin), 2 MG PO QAM - Hold the following medications 24 hours prior to surgery: Testosterone (Androgel Pump), 40.5 MG TOP QAM - Hold the following medications the morning of surgery: Lisinopril (Zestril), 10 MG PO QAM Phenazopyridine HCl (Pyridium), 200 MG PO TID PRN for PRN Rivastigmine Tartrate (Exelon), 3 MG PO QAM - Take the following medications the morning of surgery with a sip of water: Acetaminophen (Tylenol), 650 MG PO Q4H PRN for RN (if needed, can be taken up to four hours before surgery) Memantine (Namenda), 10 MG PO BID Metoprolol Tartrate (Lopressor) (Lopressor), 100 MG PO BID - Take the following medications as scheduled the night before surgery: Acetaminophen (Tylenol), 650 MG PO Q4H PRN for RN (if needed) Atorvastatin (Lipitor), 40 MG PO HS Cholecalciferol (Vitamin D3), 1,000 UNITS PO QPM Memantine (Namenda), 10 MG PO BID Metoprolol Tartrate (Lopressor) (Lopressor), 100 MG PO BID Phenazopyridine HCl (Pyridium), 200 MG PO TID PRN for PRN (if needed) If you have any questions please call us at [phone] or [phone] or [phone]
[2017-05-29 15:37] LABS: BASO % 0.5 %; BASO ABS # 0.03 K/uL (0-0.2); EOS % 4.1 %; EOS ABS # 0.27 K/uL (0-0.5); HEMATOCRIT 41.9 % (42-52); HEMOGLOBIN 13.8 g/dL (14.0-18.0); IG# 0.01 K/uL (0.00-0.02); LYMPH % 24.9 %; LYMPH ABS # 1.64 K/uL (1.2-3.4); MEAN CELL VOLUME 92.5 fL (80-100); MEAN CORPUSCULAR HEMOGLOBIN 30.5 pg (25-34); MEAN CORPUSCULAR HGB CONC 32.9 g/dl (32-36); MONO % 5.9 %; MONO ABS # 0.39 K/uL (0.11-0.59); NEUT % 64.4 %; NEUT ABS # 4.25 K/uL (1.4-6.5); PLATELET COUNT 166 K/uL (130-400); RED CELL DISTRIBUTION WIDTH CV 16.5 % (11.5-14.5); RED CELL DISTRIBUTION WIDTH SD 56.4 fL (36.4-46.3); WHITE BLOOD COUNT 6.59 K/uL (4.8-10.8)
[2017-05-29 15:54] LABS: CREATININE 1.05 mg/dl (0.60-1.40); POTASSIUM 4.3 mmol/L (3.5-5.1)
[2017-06-14] VITALS (8 sets, daily range): BP systolic 131–171; BP diastolic 89–113; PULSE 80–132; TEMP 36.6–36.9; O2SAT 93–96; Ht 175.3 cm; Wt 89.0 kg
[~2017-06-14] VITALS: Ht 175.3 cm; Wt 89.0 kg
[~2017-06-14 08:01] MED LIST changes: +ACET-1311 PO; -ACET1TAB84 PO; +CIPROFLOXACIN / D5W 400 MG IV SCH; -DILT-113 PO; +LACTATED RINGER'S 1000ML 1,000 ML IV SCH; +NMN10 PO
[2017-06-14] MEDS ORDERED: ONDANSETRON INJ 2 MG/ML 2 ML VIAL IV PRN (08:30)
[2017-06-14] MEDS ORDERED: EpHEDrine SULFATE INJ 50 MG/ML AMP IV PRN (08:30)
[2017-06-14] MEDS ORDERED: ATROPINE SULFATE 0.1 MG/ML 5ML SYR IV PRN (08:30)
[2017-06-14] MEDS ORDERED: ENOX80IN SQ (08:54)
[2017-06-14 09:23] LABS: INR 1.3 (0.9-1.1); PTT PATIENT 26.9 SECONDS (21.0-31.0)
[2017-06-14] MEDS ORDERED: MIDAZOLAM HCL 1 MG/ML 2ML VIAL ONE (09:57)
[2017-06-14] MEDS ORDERED: FENTANYL CITRATE INJ 50 MCG/1 ML 2 ML VIAL ONE (09:57)
[2017-06-14] MEDS ORDERED: Cysto-Conray II 17.2% 250ML BOTTLE ONE (10:04)
--- NOTE | 2017-06-14 10:21 | Discharge Instructions ---
Discharge Instructions Date of Service Jun 14, 2017. Admission Reason for Admission: Stones Discharge Discharge Diagnosis / Problem: R renal stones s/p ureteroscopy, laser litho Discharge Goals Goal(s): Decrease discomfort, Improve function, Improve disease control, Therapeutic intervention Activity Recommendations Activity Limitations: as noted below Lifting Limitations: no more than 25 pounds, gradually increase as tolerated Exercise/Sports Limitations: rest today, gradually increase as tolerated May Resume Sexual Activity: when tolerated Shower/Bathe: no limitations Driving or Machine Use: resume 1 day after discharge . Current Hospital Diet Patient's current hospital diet: Discharge Diet Recommended Diet: Regular Diet (good fluid intake) Procedures Procedures Performed: Cystoscopy, right retrograde pyelography, right flexible ureteroscopy with laser lithotripsy, basket stone extraction and ureteral stent placement. Pending Studies Studies pending at discharge: yes List of pending studies: Stone analysis Laboratory Results Hemoglobin A1c Test 03/19/17 14:58 Range/Units Estimated Average Glucose 120 mg/dl Hemoglobin A1c 5.8 H 4.5-5.6 % Medical Emergencies . Who to Call and When: Medical Emergencies: If at any time you feel your situation is an emergency, please call 911 immediately. . Non-Emergent Contact Non-Emergency issues call your: Urologist Call Non-Emergent contact if: you have a fever, temperature is above 101, your pain is not controlled, your pain is worsening, your pain is unusual for you, your pain is concerning you, you have any medication questions . . "Provider Documentation" section prepared by Jone Branham. . [place] Drug Monitoring Program Search Results: patient reviewed within database, no issues identified (no Rx since last summer)
[2017-06-14] MEDS ORDERED: ONDANSETRON INJ 2 MG/ML 2 ML VIAL ONE (10:35)
[2017-06-14] MEDS ORDERED: LIDOCAINE HCL 2% 2 ML VIAL (20MG/ML) ONE (10:35)
[2017-06-14] MEDS ORDERED: PHENYLEPHRINE 100MCG/ML 5ML SYR ONE (10:35)
[2017-06-14] MEDS ORDERED: DEXAMETHASONE SOD INJ 4 MG/ML VIAL ONE (10:35)
[2017-06-14] MEDS ORDERED: PROPOFOL IV EMULSION 10 MG/ML 20 ML VIAL IV ONE (10:35)
--- NOTE | 2017-06-14 11:13 | [facility] Operative Report ---
Operative Report Operative Date Jun 14, 2017. Pre-Operative Diagnosis Right Renal Stones Post-Operative Diagnosis Right Renal Stones Procedure(s) Performed Cystoscopy, Right flexible Ureteroscopy, Right Retrograde Pyelography, Laser Lithotripsy, Basket Stone Extraction, Ureteral Stent Insertion Surgeon Dr Jadiel Branham Mortician Helper Surgeon(s) Dr. Ross Estimated Blood Loss 5cc Findings Mid and lower pole stones fragmented in small pieces, stone sent for analysis, good stent position after completion of case. Specimens A: Right Renal Stones for Chemical Analysis Drains Right-sided 6 Jamaican multilength ureteral stent Anesthesia Type General Complication(s) none Disposition no Recovery Room / PACU Indications Patient is a pleasant 71-year-old male with a history of bilateral renal stones, larger stone burden on the right-hand side with intermittent discomfort. He is here today for endoscopic management after having failed lithotripsy on previous occasions. Patient has been seen with Dr. Ross and care is discussed preoperatively. Intravenous ciprofloxacin provided for antibiotic coverage. SCDs used for DVT prophylaxis. Please see H&P for further details. Description of Procedure Patient was properly identified and brought into the operative suite after identification for proper consent in the chart. General anesthesia with laryngeal mask was initiated and patient was prepped and draped in the standard fashion for this procedure. Full timeout procedure was followed. 22 Jamaican rigid cystoscope was introduced into the bladder under direct visualization patient was noted to have a elevated bladder neck with mild lateral lobe hypertrophy. Bladder was surveyed in its entirety demonstrating grade 1-2 trabeculation with ureteral orifices in the normal anatomic location. No bladder tumors, mucosal changes or worrisome findings were appreciated. Right- sided ureteral orifice was identified and cannulated using an open-ended catheter. Gentle retrograde pyelography was performed demonstrating a normal ureter and renal collecting system. Calcifications present in the right upper quadrant were consistent with the patient's previously noted stones and appear as filling defects on the patient's retrograde images. Sensor tip wire was advanced up to the level of the right collecting system and uses a safety wire until the end of the case. Amplatz superstiff wire was used as a working wire. 02/01 45 cm right-sided ureteral access sheath was placed in the level of the proximal ureter without difficulties or resistance. This was followed by a fiberoptic flexible ureteroscope and complete pyeloscopy was performed. Clusters of larger and smaller stones were appreciated in the mid to lower pole of the right kidney. Using a 200 m fiber on first dusting than standard settings the stones were fragmented into smaller pieces. Larger pieces were basketed and easily removed demonstrating their small size. These were sent for chemical analysis. Pyeloscopy was repeated at no large residual stone fragments were appreciated. These were felt to be acceptable for passage after stenting. Complete exit ureteroscopy including removal of ureteral access sheath was performed demonstrating no ureteral tears, large stones within the ureter or other ureteral injuries or abnormalities. Cystoscope was backloaded over the safety wire and a 6 Jamaican multilength ureteral stent was placed with redundant stent material within the right kidney and a double loop within the bladder. Hydronephrotic drip was appreciated. Bladder was drained and cystoscope was removed. Anesthesia was reversed the patient was transferred to the recovery room in stable condition. Follow-up instructions: Patient will be discharged home after recovery today. Prescription for analgesia and antibiotics for postoperative coverage are provided. Patient is instructed to contact our service should he note any fevers, chills, nausea, vomiting or other difficulties in the postoperative period today. Instructions are discussed with the patient's today as desired by the patient preoperatively. Mortician Helper used throughout the case to assist with the passage of wires, stents and instruments, to avoid inadvertent dislodgment of access to the right ureter , for patient safety and assistance with stone removal. I attest to the content of the Intraoperative Record and any orders documented therein. Any exceptions are noted below.
[2017-06-14] MEDS ORDERED: CIPR-255 PO (11:16)
[2017-06-14] MEDS ORDERED: PHEN-775 PO (11:16)
[2017-06-14] MEDS ORDERED: OXYC-57 PO (11:16)
[2017-06-14] MEDS ORDERED: PHENAZOPYRIDINE HCL 200 MG TAB PO PRN ×2 (11:30→14:15)
[2017-06-14] MEDS ORDERED: OXYCODONE/ACETAMINOPHEN 5-325 TAB PO PRN ×2 (11:30→14:15)
[2017-06-14] MEDS: FENTANYL CITRATE INJ 50 MCG/1 ML 2 ML VIAL IV PRN ×4 (11:47→13:49)
[2017-06-14] MEDS ORDERED: LABETALOL HCL IV 5 MG/ML 20ML IV ONE (12:06)
[2017-06-14] MEDS ORDERED: NURSING VERBAL MED ORDER ONE ×3 (12:45→15:00)
--- NOTE | 2017-06-14 13:35 | DIAGNOSTIC IMAGING REPORT ---
INTRAOPERATIVE RADIOGRAPHS CLINICAL HISTORY: Right-sided laser lithotripsy and ureteral stent placement. Fluoroscopy time: 80 seconds. FINDINGS: 6 spot fluoroscopic images of the right abdomen from a lithotripsy procedure and ureteral stent placement are presented. Comparison is made to study dated 05/01/2017. On the initial image small radiodense calcifications project over the right kidney. The second and third images show cannulation and opacification of the right renal collecting system and right ureter. There is no hydronephrosis. Lithotripsy images are obtained. The final image shows the proximal of a right ureteral stent coiled in the region of the right renal pelvis. IMPRESSION: Intraoperative images from a right-sided lithotripsy and ureteral stent placement procedure as above. Electronically signed by: Emile Neal M.D. 06/14/2017 1:34 PM Dictated Date/Time: 06/14/2017 1:32 PM
[2017-06-14] MEDS ORDERED: ACETAMINOPHEN 1000 MG/100 ML IV IV ONE ×2 (14:11→14:15)
[2017-06-14] MEDS: LABETALOL HCL IV 5 MG/ML 20ML IV PRN ×2 (14:11→14:34)
[2017-06-14] MEDS ORDERED: ACETAMINOPHEN 325 MG TAB PO PRN (14:15)
[2017-06-14] MEDS ORDERED: BELLADONNA/OPIUM SUPP 60 MG SUPP PR ONE (14:26)
--- NOTE | 2017-06-14 14:42 | History and Physical ---
History & Physical Date & Time of Service: Jun 14, 2017 at 14:20 Chief Complaint: Stones Primary Care Physician: Cassius Decker M.D. 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 The procedure was completed by Dr. Branham, however follows with Dr. Stinson as an outpatient. Medicine was asked to evaluate the patient due to elevated HR from 70-80s prior to procedure into the 120s afterwards. The patient is in significant pain during my examination, however had gotten Fentanyl IV 50 mcg for pain. He actually had fallen asleep after administration of this but was awake again complaining of R flank/back pain. 12 lead EKG ordered at bedside - monitor showing afib with HR in 120s. BP stable Admit to tele for observation Past Medical/Surgical History Medical Problems: (1) Atrial fibrillation (2) CAD (coronary artery disease) (3)Hypertension (4) CVA (cerebral infarction) (5) DJD (degenerative joint disease) of knee (6) Hx of renal calculi (7) Hydronephrosis (8) HLD Surgical Problems: (1) S/P PTCA (percutaneous transluminal coronary angioplasty) (2) Total knee replacement status Family History No pertinent family history Social History Smoking Status: Never Smoker Alcohol Use: none Drug Use: none Marital Status: Housing status: lives with family Occupational Status: retired Immunizations History of Influenza Vaccine: Yes Influenza Vaccine Date: Jan 09, 2006 History of Tetanus Vaccine?: Yes History of Pneumococcal: Yes History of Hepatitis B Vaccine: No Allergies Coded Allergies: Adhesives (Verified Allergy, Intermediate, BLISTERS, 06/14/17) Alcohol (Verified Allergy, Unknown, RUBBING ALCOHOL MADE SHORTNESS OF BREATH, 06/14/17) Escitalopram (Verified Allergy, Unknown, UNKNOWN, 06/14/17) Home Medications Scheduled Aspirin (Aspirin Chewable), 81 MG PO QAM Atorvastatin (Lipitor), 40 MG PO HS Cholecalciferol (Vitamin D3), 1,000 UNITS PO QPM Ciprofloxacin Hcl (Cipro), 500 MG PO BID Enoxaparin (Lovenox), 80 MG SQ Q12H Lisinopril (Zestril), 10 MG PO QAM Memantine (Namenda), 10 MG PO BID Metoprolol Tartrate (Lopressor) (Lopressor), 100 MG PO BID Nitroglycerin (Nitrostat), 0.4 MG UT PRN Rivastigmine Tartrate (Exelon), 3 MG PO QAM Testosterone (Androgel Pump), 40.5 MG TOP QAM Warfarin Sod (Coumadin), 2 MG PO QAM Scheduled PRN Acetaminophen (Tylenol), 650 MG PO Q4H PRN for RN Oxycodone/Acetaminophen 5MG/325MG (Percocet 5MG/325MG), 1 TABLET PO Q4H PRN for Pain Phenazopyridine HCl (Pyridium), 200 MG PO TID PRN for PRN Phenazopyridine Hcl (Pyridium), 200 MG PO TID PRN for Bladder pain Review of Systems Constitutional: No fever, sweats or chills, + R back/flank pain Eyes: No diplopia, no worsening or blurred vision ENT: normal hearing, no trouble swallowing Respiratory: No cough, sputum, dyspnea at rest or on exertion Cardiovascular: No chest pain, tightness or palpitations Abdomen: No pain, + nausea, vomiting, diarrhea or constipation Musculoskeletal: No joint pain, calf pain, swelling Neurologic: No weakness, numbness/tingling, uses a cane for ambulation assistance Psychiatric: No anxiety or depression Skin: No rash or itch Physical Exam Vital Signs Date Time Temp Pulse Resp B/P (MAP) Pulse Ox O2 Delivery O2 Flow Rate FiO2 06/14/17 13:35 115 13 153/108 96 Nasal Cannula 2 06/14/17 13:25 104 13 133/104 96 Nasal Cannula 2 06/14/17 13:15 104 13 156/98 96 Nasal Cannula 2 06/14/17 13:05 112 13 163/101 95 Nasal Cannula 2 06/14/17 12:55 99 24 157/114 98 Nasal Cannula 2 06/14/17 12:45 115 22 142/96 95 Nasal Cannula 2 06/14/17 12:35 119 13 160/112 96 Nasal Cannula 2 06/14/17 12:25 36.5 117 15 140/113 97 Nasal Cannula 2 06/14/17 12:15 101 15 136/104 92 Nasal Cannula 2 06/14/17 12:05 113 15 136/99 92 Nasal Cannula 2 06/14/17 11:55 95 15 150/104 92 Nasal Cannula 2 06/14/17 11:45 99 15 138/88 92 Nasal Cannula 2 06/14/17 11:35 101 15 151/113 96 Oxymask 10 06/14/17 11:25 88 14 143/88 97 Oxymask 10 06/14/17 11:17 36.2 96 14 129/88 95 Oxymask 10 06/14/17 09:01 36.9 86 16 131/94 (106) 96 Room Air General: awake, alert, moderate distress complaining of right flank/back pain Head: Normocephalic, atraumatic ENT: PERRL, EOMI, no pharyngeal exudate, mucous membranes moist Chest: Clear to auscultation, on room air, no adventitious breath sounds Cardiac: Irregularly irregular, heart rate in the 120s, + faint systolic murmur , no JVD, normal peripheral pulses, good capillary refill Abdominal: NABS x 4 quadrants, soft, + slightly distended, nontender to palpation, no rebound, guarding or tenderness Back: + tenderness along R flank Extremities: Normal inspection, no peripheral edema or erythema, calfs nontender to palpation Psych: Normal mood and affect Neuro: Awake and alert, oriented to place currently, has difficulty describing pain and location. 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 The procedure was completed by Dr. Branham, however follows with Dr. Stinson as an outpatient. Medicine was asked to evaluate the patient due to elevated HR from 70-80s prior to procedure into the 120s afterwards. The patient is in significant pain during my examination, however had gotten Fentanyl IV 50 mcg for pain. He actually had fallen asleep after administration of this but was awake again complaining of R flank/back pain. S/p right ureteroscopy/ureteral stent placement -Pain management with IV fentanyl, morphine, oxycodone, Pyridium -Urology consult -strict i/os -Continue Cipro 400 mg q12h - follow am cbc A. fib with RVR Chronic atrial fibrillation Possible diastolic CHF -Admit to tele for observation -Patient found to be in RVR after procedures with heart rate up to the 120s. Discussion was held with the patient's she reports that he has taken all his medications routinely this morning- including lopressor 100 mg BID - can use IV lopressor 5 mg if pain controlled and rate continues to be high. - Held Coumadin since Friday 06/09 and has been on Lovenox injections 80 mg bid with instructions to hold the injections starting last night for procedure. -follow INR and resume Coumadin tomorrow with bloody discharge/clotting s/p procedure. -12 lead EKG ordered at bedside, BP stable -CXR ordered Hypertension CAD History of [place] status post cardiac stent CVA 2010 -Continue Lopressor 100 mg bid, lisinopril 10 mg daily, ASA 81 mg, hold anticoagulation as above status post procedure. Patient has been on Coumadin/ Lovenox injections = Dementia Continue Namenda 10 mg bid, exelon 3 mg QAM DVT ppx: Teds, SCDs, and chemical anticoagulation held at this time status post procedure, follow INR and resume Coumadin tomorrow. CODE STATUS: FULL code Disposition: From home, lives with , likely dc tomorrow I personally interviewed and examined the patient. I agree with history of present illness and physical exam mentioned above, I also performed my own history taking and examination. Past medical history and review of system has been obtained by myself I reviewed all pertinent labs and studies Reviewed current medications I discussed and formulated of the assessment and plan mentioned above. Please refer to the Summary mentioned below. 71 years old man with past medical history of chronic A. fib on Coumadin, currently bridged with Lovenox for the urologic procedure, hypertension, CAD status post [place] and stents, CVA in 2010 presented to the hospital for cystoscopy , lithotripsy and stent placement and right ureter. Procedure went uneventful but patient had spikes of tachycardia after the procedure. Tachycardia improved with pain control. Patient does have advanced directive states that he is DNR, but when I asked him in the presence of the nurse about his wishes he clearly stated that he wants to be resuscitated, nurse confirmed by asking him the same questions again and he clearly stated that he wants CPR. Patient is currently fully oriented and awake and surprisingly have full awareness of what kind of procedure he had. Hence we will proceed with his wishes to keep him full code. Pharmacologic DVT prophylaxis and initiation of anticoagulation will be up to the surgical team General Appearance: not in acute distress Eyes: normal Sclerae, extraocular muscle intact ENT: hearing grossly normal Neck: supple Respiratory/Chest: normal air entry bilateral ,no respiratory distress, no accessory muscle use Cardiovascular: regular rate, rhythm, no murmur Abdomen: non tender, soft, no masses Extremities: no edema musculoskeletal: no significant swelling or inflammation in any joint Neurologic/Psychiatric: Awake alert oriented times place and person moves all extremities sensation intact cranial nerves II-12 appear to be intact Skin: normal color, warm/dry, no rash Has a Crews catheter with urine collection bag full of blood tinged urine Olimpia James MD, [facility] hospitalist group Resuscitation Status VTE Prophylaxis Will order VTE Prophylaxis: Yes
[2017-06-14] MEDS ORDERED: HYDROmorphone INJ 2 MG/ML SYR/VIAL IV PRN (14:45)
[2017-06-14] MEDS ORDERED: MoRPHine SULFATE 4 MG/ML 1 ML CARP\\VIAL IV PRN (14:45)
[2017-06-14] MEDS ORDERED: METOPROLOL TARTRATE 1 MG/ML VIAL ONE ×2 (14:57→16:39)
[2017-06-14] MEDS ORDERED: IV FLUIDS COMPLETED PRN (15:15)
[2017-06-14] MEDS ORDERED: FUROSEMIDE 40 MG/4 ML VIAL ONE (15:31)
[2017-06-14] MEDS ORDERED: METOPROLOL TARTRATE 1 MG/ML VIAL IV STA (15:43)
--- NOTE | 2017-06-14 15:56 | Anesthesiology Progress Note ---
Anesthesia Post Op Note Date & Time Jun 14, 2017 at 15:56 Vital Signs Pain Intensity: 4 Vital Signs Past 12 Hours Date Time Temp Pulse Resp B/P (MAP) Pulse Ox O2 Delivery O2 Flow Rate FiO2 06/14/17 15:25 142 26 162/136 94 Nasal Cannula 2 06/14/17 15:15 132 24 147/99 95 Nasal Cannula 2 06/14/17 15:05 135 24 173/126 97 Nasal Cannula 2 06/14/17 15:01 144 140/116 06/14/17 14:55 135 24 140/116 97 Nasal Cannula 2 06/14/17 14:45 160 22 131/114 95 Nasal Cannula 2 06/14/17 14:35 131 25 167/115 95 Nasal Cannula 2 06/14/17 14:25 121 16 152/120 96 Nasal Cannula 2 06/14/17 14:15 121 16 149/121 96 Nasal Cannula 2 06/14/17 14:05 36 121 16 161/112 96 Nasal Cannula 2 06/14/17 13:55 121 13 152/112 96 Nasal Cannula 2 06/14/17 13:45 115 13 153/114 96 Nasal Cannula 2 06/14/17 13:35 115 13 153/108 96 Nasal Cannula 2 06/14/17 13:25 104 13 133/104 96 Nasal Cannula 2 06/14/17 13:15 104 13 156/98 96 Nasal Cannula 2 06/14/17 13:05 112 13 163/101 95 Nasal Cannula 2 06/14/17 12:55 99 24 157/114 98 Nasal Cannula 2 06/14/17 12:45 115 22 142/96 95 Nasal Cannula 2 06/14/17 12:35 119 13 160/112 96 Nasal Cannula 2 06/14/17 12:25 36.5 117 15 140/113 97 Nasal Cannula 2 06/14/17 12:15 101 15 136/104 92 Nasal Cannula 2 06/14/17 12:05 113 15 136/99 92 Nasal Cannula 2 06/14/17 11:55 95 15 150/104 92 Nasal Cannula 2 06/14/17 11:45 99 15 138/88 92 Nasal Cannula 2 06/14/17 11:35 101 15 151/113 96 Oxymask 10 06/14/17 11:25 88 14 143/88 97 Oxymask 10 06/14/17 11:17 36.2 96 14 129/88 95 Oxymask 10 06/14/17 09:01 36.9 86 16 131/94 (106) 96 Room Air Notes Mental Status: alert / awake / arousable, participated in evaluation Pt Amnestic to Procedure: Yes Nausea / Vomiting: adequately controlled Pain: adequately controlled Airway Patency, RR, SpO2: stable & adequate BP & HR: see Notes Hydration State: stable & adequate Anesthetic Complications: no major complications apparent see attached anesthesia progress note for further detail
--- NOTE | 2017-06-14 15:59 | Cardiology Consultation ---
Cardiology Consultation Date of Consultation: Jun 14, 2017. Requesting Physician: Dr. Lujan Reason for Consultation: AF with RVR, CHF Pt evaluation today including: conversation w/ patient, physical exam, lab review, review of studies, conversation w/ independent crop consultant, review of inpatient medication list History of Present Illness This is a very pleasant 71-year-old gentleman who has a history of permanent atrial fibrillation for which he is on warfarin anticoagulation, long-standing coronary disease for which he has had stent placement in the LAD, hypertension, hyperlipidemia, diabetes mellitus and recurrent nephrolithiasis. In October 2016 he had a left ureteral stone for which he had a left ureteral stent placed , afterwards he had atrial fibrillation with a rapid ventricular response and in follow-up had a slow heart rate resulting in decrease in his diltiazem, he was also on digoxin as well as metoprolol. Currently his medication list only lists metoprolol for heart rate control. He is maintained on metoprolol 100 mg twice daily, which I understand he took this morning. Echocardiography on October 25, 2016 showed normal left ventricular size and function with mild mitral regurgitation. He had his urologic procedure this morning which included a right ureteral stent , afterwards he was hypertensive and tachycardic, he then appeared to go into congestive heart failure although seems to be oxygenating reasonably well. At the time of my evaluation some hours after his procedure he is breathing somewhat heavily but appears comfortable, he denies pain and has only minimal complaints of shortness of breath. He denies chest discomfort. Audibly he sounds as though he is in congestive heart failure but he can converse. Past Medical/Surgical History (1) Atrial fibrillation (2) CAD (coronary artery disease) (3) Hypertension (4) Hyperlipidemia (5) CVA (cerebral infarction) (6) S/P PTCA (percutaneous transluminal coronary angioplasty) (7) Total knee replacement status Family History No pertinent family history Social History Smoking Status: Never Smoker History of Alcohol Use: Yes (OCC BEER) Review of Systems Constitutional: No fever, No weight loss, No weakness Respiratory: + shortness of breath, No cough, No wheezing, No dyspnea on exertion Cardiac: No chest pain, No orthopnea, No PND, No edema, No palpitations Abdomen: No pain, No nausea, No vomiting, No diarrhea, No GI bleeding Male : No urinary frequency, No nocturia more than once/night, No slowing stream, No sexual dysfunction Neurologic: No paralysis, No weakness, No numbness/tingling, No balance problems Heme: No abnormal bleeding/bruising, No clotting problems Endo: No fatigue Skin: No problem reported All Other Systems: Reviewed and Negative Allergies Coded Allergies: Adhesives (Verified Allergy, Intermediate, BLISTERS, 06/14/17) Alcohol (Verified Allergy, Unknown, RUBBING ALCOHOL MADE SHORTNESS OF BREATH, 06/14/17) Escitalopram (Verified Allergy, Unknown, UNKNOWN, 06/14/17) Medications Current Inpatient Medications Medications (Trade) Dose Ordered Sig/Mariaa Route Start Time Stop Time Status Last Admin Dose Admin Oxycodone/ Acetaminophen (Percocet 5-325mg Tab) 1 tab Q4H PRN PO 06/14/17 11:30 06/28/17 11:29 Oxycodone/ Acetaminophen (Percocet 5-325mg Tab) 2 tab Q4H PRN PO 06/14/17 11:30 06/28/17 11:29 Phenazopyridine HCl (Pyridium Tab) 200 mg TID PRN PO 06/14/17 11:30 07/14/17 11:29 06/14/17 14:08 200 MG Labetalol HCl (Normodyne IV) 10 mg Q5M PRN IV 06/14/17 14:15 06/14/17 19:15 06/14/17 14:34 10 MG Acetaminophen (Tylenol Tab) 650 mg Q4H PRN PO 06/14/17 14:15 07/14/17 14:14 Ondansetron HCl (Zofran Inj) 4 mg Q6H PRN IV 06/14/17 14:15 07/14/17 14:14 Polyethylene (Miralax Powder Packet) 17 gm DAILY PRN PO 06/14/17 14:15 07/14/17 14:14 Aspirin (Aspirin Chew) 81 mg QAM PO 06/15/17 09:00 07/15/17 08:59 UNV Atorvastatin Calcium (Lipitor Tab) 40 mg HS PO 06/14/17 21:00 07/14/17 20:59 UNV Cholecalciferol (Vitamin D Tab) 1,000 inter.unit QPM PO 06/14/17 21:00 07/14/17 20:59 UNV Lisinopril (Zestril Tab) 10 mg QAM PO 06/15/17 09:00 07/15/17 08:59 UNV Memantine (Namenda Tab) 10 mg BID PO 06/14/17 21:00 07/14/17 20:59 UNV Metoprolol Tartrate (Lopressor Tab) 100 mg BID PO 06/14/17 21:00 07/14/17 20:59 UNV Phenazopyridine HCl (Pyridium Tab) 200 mg TID PRN PO 06/14/17 14:15 07/14/17 14:14 UNV Hydromorphone HCl (Dilaudid Inj) 1 mg TODAY PRN IV 06/14/17 14:45 06/14/17 19:30 Ciprofloxacin/ Dextrose 400 mg/ Prmx 200 ml @ 100 mls/hr Q12 IV 06/14/17 21:00 06/15/17 20:59 UNV Morphine Sulfate (MoRPHine SULFATE INJ) 2 mg Q4 PRN IV 06/14/17 14:45 06/28/17 14:44 Morphine Sulfate (MoRPHine SULFATE INJ) 4 mg Q4H PRN IV 06/14/17 14:45 06/28/17 14:44 Miscellaneous (Iv Fluids Completed) 1 ea PRN PRN N/A 06/14/17 15:15 06/14/18 15:14 Physical Exam Vital Signs Past 12 Hours Date Time Temp Pulse Resp B/P (MAP) Pulse Ox O2 Delivery O2 Flow Rate FiO2 06/14/17 15:25 142 26 162/136 94 Nasal Cannula 2 06/14/17 15:15 132 24 147/99 95 Nasal Cannula 2 06/14/17 15:05 135 24 173/126 97 Nasal Cannula 2 06/14/17 15:01 144 140/116 06/14/17 14:55 135 24 140/116 97 Nasal Cannula 2 06/14/17 14:45 160 22 131/114 95 Nasal Cannula 2 06/14/17 14:35 131 25 167/115 95 Nasal Cannula 2 06/14/17 14:25 121 16 152/120 96 Nasal Cannula 2 06/14/17 14:15 121 16 149/121 96 Nasal Cannula 2 06/14/17 14:05 36 121 16 161/112 96 Nasal Cannula 2 06/14/17 13:55 121 13 152/112 96 Nasal Cannula 2 06/14/17 13:45 115 13 153/114 96 Nasal Cannula 2 06/14/17 13:35 115 13 153/108 96 Nasal Cannula 2 06/14/17 13:25 104 13 133/104 96 Nasal Cannula 2 06/14/17 13:15 104 13 156/98 96 Nasal Cannula 2 06/14/17 13:05 112 13 163/101 95 Nasal Cannula 2 06/14/17 12:55 99 24 157/114 98 Nasal Cannula 2 06/14/17 12:45 115 22 142/96 95 Nasal Cannula 2 06/14/17 12:35 119 13 160/112 96 Nasal Cannula 2 06/14/17 12:25 36.5 117 15 140/113 97 Nasal Cannula 2 06/14/17 12:15 101 15 136/104 92 Nasal Cannula 2 06/14/17 12:05 113 15 136/99 92 Nasal Cannula 2 06/14/17 11:55 95 15 150/104 92 Nasal Cannula 2 06/14/17 11:45 99 15 138/88 92 Nasal Cannula 2 06/14/17 11:35 101 15 151/113 96 Oxymask 10 06/14/17 11:25 88 14 143/88 97 Oxymask 10 06/14/17 11:17 36.2 96 14 129/88 95 Oxymask 10 06/14/17 09:01 36.9 86 16 131/94 (106) 96 Room Air Constitutional: Level of Distress: moderate distress Psychiatric: Mental Status: active & alert Head: normocephalic Eyes: EOM: EOMI ENMT: normal ENT inspection, hearing grossly normal Neck: supple, no masses Lungs: Respiratory effort: no dyspnea, good air movement Auscultation: deminished air movement, wet rales/crackles, rales/crackles on the left, rales/crackles on the right Cardiovascular: Heart Auscultation: no murmurs, no rubs, tachycardia, irregular rate rhythm Peripheral Pulses: Bruits: none appreciated Abdomen: Bowel Sounds: normal Inspection & Palpation: soft, no tenderness, guarding & rebound, no masses Musculoskeletal: normal strength (5/5 throughout) Extremities: no edema Neurologic: Cranial Nerves: grossly intact Sensation: grossly intact Data Laboratory Results: Last 24 Hours Test 06/14/17 00:00 06/14/17 08:50 Prothrombin Time 13.2 SECONDS Prothromb Time International Ratio 1.3 Activated Partial Thromboplast Time 26.9 SECONDS Partial Thromboplastin Ratio 1.0 Imaging: CXR shows CHF EKG: AF with rapid HR (144 BPM), nonspecific inferolateral ST-T abnormalities Stat Echo: Although it is a poor study due to his position (upright), with the use of Definity his left ventricular function appears preserved. Assessment & Plan 1. CHF: Diastolic, his ejection fraction appears to be preserved. We need diuresis, I expect he will not have any evidence of an acute ischemic event but we will trend enzymes. 2. AF: Chronic, now with rapid HR. Probably related to high catecholamines, he took his metoprolol this AM. During his last admission he was treated with metoprolol, diltiazem and digoxin but where he remains only on digoxin, possibly due to low heart rate as an outpatient. I am going to add intravenous metoprolol now. Gingerly use IV beta blockade if needed, he may drop his BP and HR quickly once he is more comfortable and his heart failure resolves. 3. CAD: No evidence of acute ischemic event, I will follow Troponin however. Thank you for allowing me to participate in his care.
--- NOTE | 2017-06-14 16:09 | Anesthesiology Progress Note ---
Anesthesia Progress Note Date of Service Jun 14, 2017. Progress Notes The patient was s/p R ureteroscopy with laser lithotripsy and stent insertion. Post-operatively, it was noted the patient remained in afib but his heart rate was elevated in the 100s-120s. His BP was 160/100, and his oxygenation was stable. The patient was complained of R flank pain. He was receiving intermittent 50mcg doses of IV fentanyl with some relief. The patient was administered labetalol 10mg IV. There was minimal improvement in HR or BP. Due to the patient's complex medical history, I spoke to Dr. Ross and we agreed the patient should be evaluated by the hospitalist. The hospitalist's PA evaluated the patient, and we were in agreement that the patient should remain in telemetry for further care. Prior to discharge to his room, the patient's HR increased to 140s-150s with BP ranging 120-150/90-100. At this time, the patient 's pain was better controlled, but he developed increased work of breathing. He denied any chest pain. Additional labetalol and metoprolol was administered intravenously. A 12 lead EKG showed afib with RVR. I consulted Dr. Lim for further management. Dr. Lim evaluated the patient at bedside and ordered lasix and metoprolol. We were in agreement that the patient was showing evidence for congestive failure. The patient was to be taken to the echo lab for further evaluation of his cardiac status. The patient would be transferred to telemetry from there. The patient and family were updated throughout the entire process.
--- NOTE | 2017-06-14 16:13 | DIAGNOSTIC IMAGING REPORT ---
SINGLE VIEW CHEST CLINICAL HISTORY: Atrial fibrillation with rapid ventricular response. FINDINGS: An AP, portable, upright chest radiograph is compared to study dated 11/27/2016. Correlation is made with chest CT dated 11/01/2016. The examination is degraded by portable technique and patient rotation. The heart is enlarged and there is atherosclerotic calcification of the thoracic aorta. There is pulmonary vascular congestion. Hazy airspace opacities likely represent developing interstitial edema. No large pleural effusion or pneumothorax is seen. The skeletal structures are osteopenic. The bony thorax is grossly intact. IMPRESSION: 1. Cardiomegaly with pulmonary vascular congestion 2. Hazy airspace opacities likely represent developing interstitial edema. Correlate clinically for evidence of a superimposed infectious/inflammatory pneumonitis. Electronically signed by: Emile Neal M.D. 06/14/2017 4:11 PM Dictated Date/Time: 06/14/2017 4:10 PM
[2017-06-14] MEDS ORDERED: DILTIAZEM BOLUS / DRIP IV STA (16:46)
[2017-06-14] MEDS ORDERED: DILTIAZEM HCL 5 MG/ML 5 ML VIAL BOLUS/OMNI IV SCH (17:00)
[2017-06-14] MEDS: DILTIAZEM HCL INJ 125 MG in DEXTROSE 5% 100ML IV PRN (17:07)
[2017-06-14] MEDS: MoRPHine SULFATE 2 MG/ML CARP IV PRN (18:35)
--- NOTE | 2017-06-14 18:55 | ECHOCARDIOGRAM REPORT ---
*NOTICE TO RECEIVING LIBERTARIAN AGENCY This information is strictly Confidential and protected under [place] law. [place] law prohibits you from making any further disclosure of this information unless further disclosure is expressly permitted by the written consent of the person to whom it pertains or is authorized by law. A general authorization for the release of medical or other information is not sufficient for this purpose. Hospital accepts no responsibility if the information is made available to any other person, INCLUDING THE PATIENT. Interpretation Summary * Name: SAMANTHA LENTZ Study Date: 06/14/2017 03:54 PM BP: 150/113 mmHg * Patient Location: [facility] HR: 149 * : 1945 (M/d/yyyy) Gender: Male Height: 70 in * Age: 71 yrs Ethnicity: CA Weight: 206 lb * Ordering Physician: Sylvain Lim * Referring Physician: Cb Ross * Performed By: Merlyn Quinn RDCS * * Reason For Study: CHF * BSA: 2.1 m2 * -- Conclusions -- * Technically limited despite use of definity ultrasound contrast. * 1. Normal LV size. Mild concentric LVH. * 2. LVEF 50-55 %. No regional wall motion abnormalities. * 3. RV not well visualized but appears mildly dilated with borderline function. * 4. Mild mitral regurgitation * 5. Moderate pulmonary hypertension. Estimated PASP 50-55 mmHg * 6. Compared with prior study on 10/25/2016: Patient with AFib with RVR presently. Pulmonary hypertension now present. Procedure Details * Limited views were obtained. * The study was technically difficult. * There were technical limitations due to patient'spoor positioning * A contrast injection of Definity was performed to improve assessment of LV function. * Contrast was injected into an intravenous site in the right arm. * One vial of Definity ultrasound contrast was diluted in normal saline to a total volume of 10 ml. A total of '1' ml of solution was administered during imaging. * Lot # [id number] of Definity utilized for procedure. * Expiration date . * The attending nurse who injected the contrast agent was Misa Kilgore RN. Left Ventricle * The left ventricle is grossly normal size. * There is mild concentric left ventricular hypertrophy. * Ejection Fraction = 50-55%. Right Ventricle * The right ventricle is mildly dilated. * The right ventricle is not well visualized. * The right ventricular systolic function is borderline reduced. Atria * The left atrial size is normal. * Right atrium not well visualized. * No ASD detected; PFO is not assessed. Mitral Valve * The mitral valve is grossly normal. * There is no mitral valve stenosis. * There is mild mitral regurgitation. Tricuspid Valve * There is trace tricuspid regurgitation. * Right ventricular systolic pressure is elevated at 50-60mmHg. Aortic Valve * The aortic valve opens well. * No hemodynamically significant valvular aortic stenosis. * There is no significant aortic regurgitation. Pulmonic Valve * The pulmonic valve is not well visualized. Great Vessels * The aortic root and proximal ascending aorta are normal sized. Pericardium/Pleural * Trivial pericardial effusion Great Vessels * IVC < 2.1, < 50% change with respiration MMode 2D Measurements and Calculations IVSd 1.0 cm LVIDd 4.4 cm LVIDs 3.3 cm LVPWd 1.3 cm IVS/LVPW 0.83 FS 24.7 % EDV(Teich) 88.1 ml ESV(Teich) 44.7 ml EF(Teich) 49.3 % EDV(cubed) 85.6 ml ESV(cubed) 36.5 ml EF(cubed) 57.4 % LV mass(C)d 181.3 grams LV mass(C)dI 85.8 grams/m\S\2 SV(Teich) 43.4 ml SI(Teich) 20.5 ml/m\S\2 SV(cubed) 49.1 ml SI(cubed) 23.2 ml/m\S\2 LVAd ap4 29.0 cm\S\2 LVLd ap4 7.6 cm EDV(MOD-sp4) 91.6 ml EDV(sp4-el) 94.0 ml LVAs ap4 21.8 cm\S\2 LVLs ap4 7.3 cm ESV(MOD-sp4) 53.9 ml ESV(sp4-el) 55.8 ml EF(MOD-sp4) 41.2 % EF(sp4-el) 40.7 % LVAd ap2 23.3 cm\S\2 LVLd ap2 7.7 cm EDV(MOD-sp2) 60.0 ml EDV(sp2-el) 60.0 ml LVAs ap2 17.2 cm\S\2 LVLs ap2 7.0 cm ESV(MOD-sp2) 37.5 ml ESV(sp2-el) 36.1 ml EF(MOD-sp2) 37.4 % EF(sp2-el) 39.8 % LVLd %diff 0.80 % EDV(MOD-bp) 74.3 ml LVLs %diff -4.26 % ESV(MOD-bp) 46.0 ml EF(MOD-bp) 38.1 % SV(MOD-sp4) 37.7 ml SI(MOD-sp4) 17.9 ml/m\S\2 SV(MOD-sp2) 22.4 ml SI(MOD-sp2) 10.6 ml/m\S\2 SV(MOD-bp) 28.3 ml SI(MOD-bp) 13.4 ml/m\S\2 SV(sp4-el) 38.2 ml SI(sp4-el) 18.1 ml/m\S\2 SV(sp2-el) 23.9 ml SI(sp2-el) 11.3 ml/m\S\2 Doppler Measurements and Calculations TR max addis 346.0 cm/sec
[2017-06-14] MEDS: MEMANTINE 10 MG TAB PO SCH (20:25)
[2017-06-14] MEDS: OXYCODONE/ACETAMINOPHEN 5-325 TAB PO PRN (20:25)
[2017-06-14] MEDS: ATORVASTATIN 40 MG TAB PO SCH (20:25)
[2017-06-14] MEDS: FUROSEMIDE INJ 20 MG in SYRINGE 0 ML IV SCH (20:25)
[2017-06-14] MEDS: METOPROLOL TARTRATE 100 MG TAB PO SCH (20:26)
[2017-06-14] MEDS: PHENAZOPYRIDINE HCL 200 MG TAB PO PRN (20:26)
[2017-06-14] MEDS: CHOLECALCIFEROL 1000 INTER.UNIT TAB PO SCH (20:26)
[2017-06-14] MEDS: CIPROFLOXACIN / D5W 400 MG in PREMIXED IN D5W 200 ML IV SCH (22:25)
[2017-06-15] VITALS (9 sets, daily range): BP systolic 109–157; BP diastolic 64–89; PULSE 67–112; TEMP 36.3–37; O2SAT 90–97
[2017-06-15 05:59] LABS: HEMATOCRIT 41.2 % (42-52); IG# 0.03 K/uL (0.00-0.02); LYMPH % 8.6 %; LYMPH ABS # 1.01 K/uL (1.2-3.4); MEAN CELL VOLUME 91.8 fL (80-100); MEAN CORPUSCULAR HEMOGLOBIN 31.2 pg (25-34); MEAN PLATELET VOLUME 10.5 fL (7.4-10.4); MONO % 5.9 %; MONO ABS # 0.69 K/uL (0.11-0.59); NEUT % 85.2 %; NEUT ABS # 10.01 K/uL (1.4-6.5); PLATELET COUNT 159 K/uL (130-400); RED CELL DISTRIBUTION WIDTH CV 17.1 % (11.5-14.5); RED CELL DISTRIBUTION WIDTH SD 57.1 fL (36.4-46.3); WHITE BLOOD COUNT 11.74 K/uL (4.8-10.8)
[2017-06-15 06:13] LABS: INR 1.2 (0.9-1.1)
[2017-06-15 06:16] LABS: BLOOD UREA NITROGEN 20 mg/dl (7-18); CARBON DIOXIDE 26 mmol/L (21-32); CREATININE 1.31 mg/dl (0.60-1.40); GLUCOSE 133 mg/dl (70-99); POTASSIUM 4.2 mmol/L (3.5-5.1); SODIUM 134 mmol/L (136-145)
[2017-06-15] MEDS: OXYCODONE/ACETAMINOPHEN 5-325 TAB PO PRN (06:31)
[2017-06-15] MEDS: DILTIAZEM HCL INJ 125 MG in DEXTROSE 5% 100ML IV PRN ×2 (06:32→07:56)
--- NOTE | 2017-06-15 07:19 | Anesthesiology Progress Note ---
Anesthesia Post Op Note Date & Time Jun 15, 2017 at 07:18 Vital Signs Vital Signs Past 12 Hours Date Time Temp Pulse Resp B/P (MAP) Pulse Ox O2 Delivery O2 Flow Rate FiO2 06/15/17 04:24 36.8 67 17 128/78 (95) 93 Room Air 06/15/17 04:09 Room Air 06/15/17 00:00 94 Room Air 06/14/17 23:50 36.7 80 18 144/89 (107) 93 Room Air 06/14/17 22:13 103 94 2.0 06/14/17 20:00 Nasal Cannula 2.0 06/14/17 19:54 36.8 99 16 171/96 (121) 94 Nasal Cannula 2.0 Notes Mental Status: alert / awake / arousable, participated in evaluation Pt Amnestic to Procedure: Yes Nausea / Vomiting: adequately controlled Pain: adequately controlled Airway Patency, RR, SpO2: stable & adequate BP & HR: stable & adequate Hydration State: stable & adequate Anesthetic Complications: no major complications apparent
[2017-06-15] MEDS: FUROSEMIDE INJ 20 MG in SYRINGE 0 ML IV SCH ×2 (07:45→16:48)
[2017-06-15] MEDS: MEMANTINE 10 MG TAB PO SCH ×2 (07:46→20:42)
[2017-06-15] MEDS: METOPROLOL TARTRATE 100 MG TAB PO SCH (07:46)
[2017-06-15] MEDS: LISINOPRIL 10 MG TAB PO SCH (07:47)
--- NOTE | 2017-06-15 08:55 | Cardiology Follow-Up ---
Subjective Date of Service: Jun 15, 2017. Pt evaluation today including: conversation w/ patient, physical exam, lab review, review of studies, review of inpatient medication list History of Present Illness This is a very pleasant 71-year-old gentleman who has a history of permanent atrial fibrillation for which he is on warfarin anticoagulation, long-standing coronary disease for which he has had stent placement in the LAD, hypertension, hyperlipidemia, diabetes mellitus and recurrent nephrolithiasis. In October 2016 he had a left ureteral stone for which he had a left ureteral stent placed , afterwards he had atrial fibrillation with a rapid ventricular response and in follow-up had a slow heart rate resulting in decrease in his diltiazem, he was also on digoxin as well as metoprolol. Currently his medication list only lists metoprolol for heart rate control. He is maintained on metoprolol 100 mg twice daily, which I understand he took this morning. Echocardiography on October 25, 2016 showed normal left ventricular size and function with mild mitral regurgitation. He had his urologic procedure June 14, 2017 which included a right ureteral stent, afterwards he was hypertensive and tachycardic, he then went into congestive heart failure although seemed to be oxygenating reasonably well. At the time of my evaluation some hours after his procedure in PACU he was breathing somewhat heavily but appeared comfortable, he denied pain and had only minimal complaints of shortness of breath. He denied chest discomfort. His heart rate was quite fast and his blood pressure was quite high therefore he was given intravenous metoprolol, however he was still fast but with his history of being slow on medications I did not want to give him a lot of long- acting medications therefore started him on intravenous diltiazem and continued his outpatient metoprolol. Today he has no complaints, he feels better than he did yesterday although is not very specific about why. He is not short of breath, he is sitting at his bedside eating breakfast. He is not aware of his tachycardia. Social History Smoking Status: Never Smoker History of Alcohol Use: No Review of Systems Respiratory: No cough, No wheezing, No shortness of breath, No dyspnea on exertion Cardiac: No chest pain, No orthopnea, No PND, No edema, No palpitations Medications Cardiovascular: Item Value Date Time Aspirin 81 mg 06/15/17 0900 (Ecotrin Tab) QAM/PO Lisinopril 10 mg 06/15/17 0900 (Zestril Tab) QAM/PO 06/15/17 0747 Atorvastatin 40 mg 06/14/17 2100 Calcium HS/PO 06/14/172024 (Lipitor Tab) Metoprolol 100 mg 06/14/17 2100 Tartrate BID/PO 06/15/17 0746 (Lopressor Tab) Furosemide 20 mg/ 2 ml @ 4 mls/min 06/14/17 2100 Syringe BID17/IV 06/15/17 0745 Diltiazem HCl 125 125 ml @ 0 mls/hr 06/14/17 1700 mg/Dextrose .Q0M PRN/IV 06/15/17 0756 Objective Vital Signs Past 12 Hours Date Time Temp Pulse Resp B/P (MAP) Pulse Ox O2 Delivery O2 Flow Rate FiO2 06/15/17 07:58 36.8 100 18 136/78 (97) 90 06/15/17 04:24 36.8 67 17 128/78 (95) 93 Room Air 06/15/17 04:09 Room Air 06/15/17 00:00 94 Room Air 06/14/17 23:50 36.7 80 18 144/89 (107) 93 Room Air 06/14/17 22:13 103 94 2.0 Last Recorded Weight-Kilograms: 92.000 Physical Exam Constitutional: Level of Distress: moderate distress Lungs: Respiratory effort: no dyspnea, good air movement Auscultation: rales/crackles on the left, rales/crackles on the right Cardiovascular: Heart Auscultation: no murmurs, no rubs, tachycardia, irregular rate rhythm Peripheral Pulses: Bruits: none appreciated Extremities: no edema Data Laboratory Results: Last 24 Hours Test 06/14/17 08:50 06/14/17 17:12 06/14/17 22:42 06/15/17 05:40 Prothrombin Time 13.2 SECONDS 12.3 SECONDS Prothromb Time International Ratio 1.3 1.2 Activated Partial Thromboplast Time 26.9 SECONDS Partial Thromboplastin Ratio 1.0 Troponin I < 0.015 ng/ml < 0.015 ng/ml < 0.015 ng/ml White Blood Count 11.74 K/uL Red Blood Count 4.49 M/uL Hemoglobin 14.0 g/dL Hematocrit 41.2 % Mean Corpuscular Volume 91.8 fL Mean Corpuscular Hemoglobin 31.2 pg Mean Corpuscular Hemoglobin Concent 34.0 g/dl Platelet Count 159 K/uL Mean Platelet Volume 10.5 fL Neutrophils (%) (Auto) 85.2 % Lymphocytes (%) (Auto) 8.6 % Monocytes (%) (Auto) 5.9 % Eosinophils (%) (Auto) 0.0 % Basophils (%) (Auto) 0.0 % Neutrophils # (Auto) 10.01 K/uL Lymphocytes # (Auto) 1.01 K/uL Monocytes # (Auto) 0.69 K/uL Eosinophils # (Auto) 0.00 K/uL Basophils # (Auto) 0.00 K/uL RDW Standard Deviation 57.1 fL RDW Coefficient of Variation 17.1 % Immature Granulocyte % (Auto) 0.3 % Immature Granulocyte # (Auto) 0.03 K/uL Sodium Level 134 mmol/L Potassium Level 4.2 mmol/L Chloride Level 100 mmol/L Carbon Dioxide Level 26 mmol/L Anion Gap 8.0 mmol/L Blood Urea Nitrogen 20 mg/dl Creatinine 1.31 mg/dl Est Creatinine Clear Calc Drug Dose 61.2 ml/min Estimated GFR () 63.5 Estimated GFR (Non- 54.8 BUN/Creatinine Ratio 15.0 Random Glucose 133 mg/dl Calcium Level 9.0 mg/dl Telemetry reviewed: Atrial fibrillation throughout, tachycardic until night time when he became relatively slow and had pauses of 2-3 seconds. This morning his heart rate is fast again. Assessment and Plan 1. CHF: Diastolic, his ejection fraction appears to be preserved. We need continued diuresis, his troponin is negative with no evidence of an ischemic event, I suspect fluid overload. He appears still to be in heart failure based on exam, but improved. 2. AF: Chronic, but with rapid heart rate. As an outpatient his rate controlling medications were decreased due to bradycardia, however here on his outpatient medications his heart rate is very fast during the day but slow at night. He seems to have a tachybradycardia component in that he is rapid during the day and slow at night on [id number] medications. Sometimes pacemaker is required for this, currently however he does not have indication for this. I would like to try to get by with medications, that will entail using relatively short acting medications which work during the day and taper off at night. I am therefore going to decrease his evening dose of metoprolol and add a daytime dose of short acting diltiazem (Cardizem SR) and see what that does with his heart rate. We should watch him at least another 24 hours to assess rate control. 3. CAD: No evidence of acute ischemic event, I would like to have his heart rate under better control however. Thank you for allowing me to participate in his care.
[2017-06-15] MEDS: CIPROFLOXACIN / D5W 400 MG in PREMIXED IN D5W 200 ML IV SCH (09:12)
[2017-06-15] MEDS: ASPIRIN 81 MG ECTAB PO SCH (09:12)
--- NOTE | 2017-06-15 09:33 | Progress Note ---
Subjective Date of Service: Jun 15, 2017. Subjective Pt evaluation today including: conversation w/ patient, chart review, lab review Voiding: ellis catheter in place (Patent, draining cobos colored urine with some clot) 71-year-old male status post routine right ureteroscopy stone extraction and stent placement yesterday by Dr. Branham. Patient admitted postoperatively for A. fib. Ellis catheter placed by medicine. Draining cobos colored urine with some clot. Patient reports some right back pain this morning. Denies nausea vomiting. Problem List Medical Problems: (1) Calculus of distal right ureter Status: Acute (2) Cellulitis of right lower extremity Status: Acute (3) CVA (cerebral infarction) Status: Chronic (4) Dehydration Status: Acute (5) Diplopia Status: Acute (6) Double vision with both eyes open Status: Acute (7) Facial contusion Status: Acute (8) Fall Status: Acute (9) Hematuria Status: Acute (10) Hypertensive urgency Status: Acute (11) Left elbow contusion Status: Acute (12) Muscle cramping Status: Acute (13) Obstruction of right ureteropelvic junction due to stone Status: Acute (14) Renal colic Status: Acute (15) Renal insufficiency Status: Acute (16) Right wrist sprain Status: Acute Review of Systems Constitutional: No fever, No chills Respiratory: No shortness of breath Cardiac: No chest pain Abdomen: No pain, No nausea, No vomiting Musculoskeletal: + problem reported (Right low back pain) Heme: No abnormal bleeding/bruising Objective Vital Signs Date Time Temp Pulse Resp B/P (MAP) Pulse Ox O2 Delivery O2 Flow Rate FiO2 06/15/17 07:58 36.8 100 18 136/78 (97) 90 06/15/17 04:24 36.8 67 17 128/78 (95) 93 Room Air 06/15/17 04:09 Room Air 06/15/17 00:00 94 Room Air 06/14/17 23:50 36.7 80 18 144/89 (107) 93 Room Air 06/14/17 22:13 103 94 2.0 06/14/17 20:00 Nasal Cannula 2.0 06/14/17 19:54 36.8 99 16 171/96 (121) 94 Nasal Cannula 2.0 06/14/17 18:55 160/109 (126) 06/14/17 18:15 36.6 114 20 168/113 93 2.0 06/14/17 17:56 104 166/93 (117) 06/14/17 16:50 36.6 132 22 168/113 (131) 93 Nasal Cannula 2.0 06/14/17 16:05 127 18 150/113 96 Nasal Cannula 2 06/14/17 15:55 36.5 149 25 151/126 96 Nasal Cannula 2 06/14/17 15:45 129 23 129/133 95 Nasal Cannula 2 06/14/17 15:35 139 26 138/116 95 Nasal Cannula 2 06/14/17 15:30 127 176/112 06/14/17 15:25 142 26 162/136 94 Nasal Cannula 2 06/14/17 15:15 132 24 147/99 95 Nasal Cannula 2 06/14/17 15:05 135 24 173/126 97 Nasal Cannula 2 06/14/17 15:01 144 140/116 06/14/17 14:55 135 24 140/116 97 Nasal Cannula 2 06/14/17 14:45 160 22 131/114 95 Nasal Cannula 2 06/14/17 14:35 131 25 167/115 95 Nasal Cannula 2 06/14/17 14:25 121 16 152/120 96 Nasal Cannula 2 06/14/17 14:15 121 16 149/121 96 Nasal Cannula 2 06/14/17 14:05 36 121 16 161/112 96 Nasal Cannula 2 06/14/17 13:55 121 13 152/112 96 Nasal Cannula 2 06/14/17 13:45 115 13 153/114 96 Nasal Cannula 2 06/14/17 13:35 115 13 153/108 96 Nasal Cannula 2 06/14/17 13:25 104 13 133/104 96 Nasal Cannula 2 06/14/17 13:15 104 13 156/98 96 Nasal Cannula 2 06/14/17 13:05 112 13 163/101 95 Nasal Cannula 2 06/14/17 12:55 99 24 157/114 98 Nasal Cannula 2 06/14/17 12:45 115 22 142/96 95 Nasal Cannula 2 06/14/17 12:35 119 13 160/112 96 Nasal Cannula 2 06/14/17 12:25 36.5 117 15 140/113 97 Nasal Cannula 2 06/14/17 12:15 101 15 136/104 92 Nasal Cannula 2 06/14/17 12:05 113 15 136/99 92 Nasal Cannula 2 06/14/17 11:55 95 15 150/104 92 Nasal Cannula 2 06/14/17 11:45 99 15 138/88 92 Nasal Cannula 2 06/14/17 11:35 101 15 151/113 96 Oxymask 10 06/14/17 11:25 88 14 143/88 97 Oxymask 10 06/14/17 11:17 36.2 96 14 129/88 95 Oxymask 10 Physical Exam General Appearance: no apparent distress Eyes: normal inspection ENT: hearing grossly normal Neck: no JVD Respiratory/Chest: no respiratory distress, no accessory muscle use Cardiovascular: no JVD Extremities: normal inspection Neurologic/Psychiatric: alert, normal mood/affect, oriented x 3 Skin: normal color Laboratory Results Last 24 Hours Test 06/14/17 17:12 06/14/17 22:42 06/15/17 05:40 Troponin I < 0.015 ng/ml < 0.015 ng/ml < 0.015 ng/ml White Blood Count 11.74 K/uL Red Blood Count 4.49 M/uL Hemoglobin 14.0 g/dL Hematocrit 41.2 % Mean Corpuscular Volume 91.8 fL Mean Corpuscular Hemoglobin 31.2 pg Mean Corpuscular Hemoglobin Concent 34.0 g/dl Platelet Count 159 K/uL Mean Platelet Volume 10.5 fL Neutrophils (%) (Auto) 85.2 % Lymphocytes (%) (Auto) 8.6 % Monocytes (%) (Auto) 5.9 % Eosinophils (%) (Auto) 0.0 % Basophils (%) (Auto) 0.0 % Neutrophils # (Auto) 10.01 K/uL Lymphocytes # (Auto) 1.01 K/uL Monocytes # (Auto) 0.69 K/uL Eosinophils # (Auto) 0.00 K/uL Basophils # (Auto) 0.00 K/uL RDW Standard Deviation 57.1 fL RDW Coefficient of Variation 17.1 % Immature Granulocyte % (Auto) 0.3 % Immature Granulocyte # (Auto) 0.03 K/uL Prothrombin Time 12.3 SECONDS Prothromb Time International Ratio 1.2 Sodium Level 134 mmol/L Potassium Level 4.2 mmol/L Chloride Level 100 mmol/L Carbon Dioxide Level 26 mmol/L Anion Gap 8.0 mmol/L Blood Urea Nitrogen 20 mg/dl Creatinine 1.31 mg/dl Est Creatinine Clear Calc Drug Dose 61.2 ml/min Estimated GFR () 63.5 Estimated GFR (Non- 54.8 BUN/Creatinine Ratio 15.0 Random Glucose 133 mg/dl Calcium Level 9.0 mg/dl Assessment and Plan POD #1 S/P right ureteroscopy and stone extraction with stent placement AFVSS Discussed with the patient some back pain and hematuria are common after stent placement. Pain management per primary service. Continue Pyridium. Trial of void when Ellis catheter no longer needed by primary service. The patient is scheduled to follow-up with Dr. Ross on June 28 at 1:00 PM. Will keep as scheduled. No further management at this time. Recall as needed issues.
[2017-06-15] MEDS: DILTIAZEM SR 60 MG CAP PO SCH (11:18)
[2017-06-15] MEDS ORDERED: METOPROLOL TARTRATE 1 MG/ML VIAL ONE (17:42)
--- NOTE | 2017-06-15 20:15 | Hospitalist Progress Note ---
Hospitalist Progress Note Date of Service Jun 15, 2017. (Charisse Dorsey PA-C) Subjective Pt evaluation today including: conversation w/ patient, physical exam, chart review, lab review, review of studies Pain much better controlled today compared to yesterday. Continues to have hematuria which has improved throughout the day. Continue to hold coumadin with hematuria per urology. Tolerating diet without difficulty. Updated and all her questions and concerns were addressed. Additional Comments: Constitutional: No fever, sweats or chills, + R back/flank pain but improved with pain meds Eyes: No diplopia, no worsening or blurred vision ENT: normal hearing, no trouble swallowing Respiratory: No cough, sputum, dyspnea at rest or on exertion Cardiovascular: No chest pain, tightness or palpitations Abdomen: No pain, + nausea, vomiting, diarrhea or constipation, no urinary discomfort Musculoskeletal: No joint pain, calf pain, swelling Neurologic: No weakness, numbness/tingling, uses a cane for ambulation assistance Psychiatric: No anxiety or depression Skin: No rash or itch (Charisse Dorsey PA-C) Objective Vital Signs Date Time Temp Pulse Resp B/P (MAP) Pulse Ox O2 Delivery O2 Flow Rate FiO2 06/15/17 17:48 139 109/64 06/15/17 16:16 36.7 77 16 109/64 (79) 92 Room Air 06/15/17 16:00 Room Air 06/15/17 12:00 Room Air 06/15/17 11:26 37.0 99 18 122/80 (94) 92 06/15/17 11:06 98 91 06/15/17 08:00 Room Air 06/15/17 07:58 36.8 100 18 136/78 (97) 90 06/15/17 04:24 36.8 67 17 128/78 (95) 93 Room Air 06/15/17 04:09 Room Air 06/15/17 00:00 94 Room Air 06/14/17 23:50 36.7 80 18 144/89 (107) 93 Room Air 06/14/17 22:13 103 94 2.0 (Charisse Dorsey PA-C) Physical Exam Notes: General: awake, alert, no distress Head: Normocephalic, atraumatic ENT: PERRL, EOMI, no pharyngeal exudate, mucous membranes moist Chest: on room air, +faint crackles bilaterally, no wheezing or rales Cardiac: Irregularly irregular, heart rate in the 120s, + faint systolic murmur, mild JVD, normal peripheral pulses, good capillary refill Abdominal: NABS x 4 quadrants, soft, + slightly distended, nontender to palpation, no rebound, guarding or tenderness, ellis cath draining cobos colored urine Back: no tenderness today Extremities: Normal inspection, no peripheral edema or erythema, calfs nontender to palpation Psych: Normal mood and affect Neuro: Awake and alert, oriented to why he is in hospital. Strength intact bilaterally and related 5/5, no motor deficits, speech is clear, no peripheral sensory deficits (Charisse Dorsey, MEL) Laboratory Results Last 24 Hours Test 06/14/17 22:42 06/15/17 05:40 Troponin I < 0.015 ng/ml < 0.015 ng/ml White Blood Count 11.74 K/uL Red Blood Count 4.49 M/uL Hemoglobin 14.0 g/dL Hematocrit 41.2 % Mean Corpuscular Volume 91.8 fL Mean Corpuscular Hemoglobin 31.2 pg Mean Corpuscular Hemoglobin Concent 34.0 g/dl Platelet Count 159 K/uL Mean Platelet Volume 10.5 fL Neutrophils (%) (Auto) 85.2 % Lymphocytes (%) (Auto) 8.6 % Monocytes (%) (Auto) 5.9 % Eosinophils (%) (Auto) 0.0 % Basophils (%) (Auto) 0.0 % Neutrophils # (Auto) 10.01 K/uL Lymphocytes # (Auto) 1.01 K/uL Monocytes # (Auto) 0.69 K/uL Eosinophils # (Auto) 0.00 K/uL Basophils # (Auto) 0.00 K/uL RDW Standard Deviation 57.1 fL RDW Coefficient of Variation 17.1 % Immature Granulocyte % (Auto) 0.3 % Immature Granulocyte # (Auto) 0.03 K/uL Prothrombin Time 12.3 SECONDS Prothromb Time International Ratio 1.2 Sodium Level 134 mmol/L Potassium Level 4.2 mmol/L Chloride Level 100 mmol/L Carbon Dioxide Level 26 mmol/L Anion Gap 8.0 mmol/L Blood Urea Nitrogen 20 mg/dl Creatinine 1.31 mg/dl Est Creatinine Clear Calc Drug Dose 61.2 ml/min Estimated GFR () 63.5 Estimated GFR (Non- 54.8 BUN/Creatinine Ratio 15.0 Random Glucose 133 mg/dl Calcium Level 9.0 mg/dl (Charisse Dorsey PA-C) Assessment and Plan This is a 71 yo M with PMHx of chronic afib on coumadin, HTN, hx DC with cardiac stents, CVA in 2010 with minimal residual left upper extremity weakness , moderate dementia, BARBARA on cpap and nephrolithiasis requiring stents in the past, who presented 06/14 for routine ureteroscopy/ ureteral stent placement with hx of R sided nephrolithiasis. PT was found to be in afib afterwards and was admitted. S/p right ureteroscopy/ureteral stent placement -Pain management with IV fentanyl, morphine, oxycodone, Pyridium -Urology consulted - appreciate recs - continue to hold coumadin -strict i/os - ellis cath draining cobos colored urine -Continue Cipro 400 mg q12h A. fib with RVR Chronic atrial fibrillation Possible diastolic CHF - Remains tachycardic - Cardiology recs appreciated: Cont lopressor 100 mg QAM, but decrease his evening dose of metoprolol to 50 mg and add a daytime dose of short acting diltiazem (Cardizem SR) - continue to monitor another 24 hours to assess rate control. - Coumadin held since Friday 06/09 - follow INR, holding for continue hematuria - CXR: Cardiomegaly with pulmonary vascular congestion. Hazy airspace opacities likely represent developing interstitial edema. Correlate clinically for evidence of a superimposed infectious/inflammatory pneumonitis. Hypertension CAD History of DC status post cardiac stent CVA 2010 - Continue Lopressor as per cards recs above. Cont lisinopril 10 mg daily, ASA 81 mg, hold anticoagulation as above. Dementia - Continue Namenda 10 mg bid, exelon 3 mg QAM DVT ppx: Teds, SCDs, and chemical anticoagulation held at this time, follow INR and resume Coumadin possibly within 1-2 days. CODE STATUS: FULL code Disposition: From home, lives with (Charisse Dorsey PA-C) Reviewed: Pt Seen/Exam by Me (Millicent Lopez MD) History Physician [employer] Operator Supervision Note: I interviewed and examined the patient. Discussed with STEPH Dorsey and agree with findings and plan as documented in the note. Any exceptions or clarifications are listed here: Patient reports pain is improved. Heart rates are slightly better controlled today but were low overnight with some 2-3 second pauses. Denies chest pain or shortness of breath except with climbing stairs which he has not done since he has been here. Vitals reviewed Gen: Alert and awake NAD HEENT: anicteric sclerae, EOMI CV: Irregularly irregular with normal rate no mgr nl S1S2 Pulm: Bibasilar crackles, otherwise clear Abd: +BS soft NT ND no masses or hernias Ext: no edema, 2+ DP pulses Skin: no rashes, warm/dry 71-year-old male with a history of chronic afib on coumadin, HTN, hx DC with cardiac stents, CVA in 2010 with minimal residual left upper extremity weakness , moderate dementia, BARBARA on cpap and nephrolithiasis requiring stents in the past, who presented 06/14 for routine ureteroscopy/ ureteral stent placement with hx of R sided nephrolithiasis. PT was found to be in afib afterwards and was admitted. -Appreciate cardiology consultation-adding on short acting diltiazem for higher heart rates during the day and lowering metoprolol evening dose for low heart rates at night-no indication for pacer at this time -Can likely DC Ellis in the morning and do trial of void, continue Cipro -Hopefully can restart Coumadin tomorrow evening Documented By: Millicent Lopez (Millicent Lopez MD)
[2017-06-15] MEDS: METOPROLOL TARTRATE 50 MG TAB PO SCH (20:42)
[2017-06-15] MEDS: ATORVASTATIN 40 MG TAB PO SCH (21:29)
[2017-06-15] MEDS: CHOLECALCIFEROL 1000 INTER.UNIT TAB PO SCH (21:29)
[2017-06-16] VITALS (8 sets, daily range): BP systolic 95–137; BP diastolic 60–87; PULSE 58–87; TEMP 36.5–37; O2SAT 94–98
[2017-06-16] MEDS: METOPROLOL TARTRATE 1 MG/ML VIAL IV PRN (03:58)
[2017-06-16 05:42] LABS: BASO % 0.1 %; BASO ABS # 0.01 K/uL (0-0.2); EOS % 0.7 %; EOS ABS # 0.07 K/uL (0-0.5); HEMATOCRIT 42.5 % (42-52); HEMOGLOBIN 13.9 g/dL (14.0-18.0); IG# 0.01 K/uL (0.00-0.02); LYMPH % 17.1 %; LYMPH ABS # 1.74 K/uL (1.2-3.4); MEAN CELL VOLUME 92.8 fL (80-100); MEAN CORPUSCULAR HEMOGLOBIN 30.3 pg (25-34); MEAN CORPUSCULAR HGB CONC 32.7 g/dl (32-36); MONO % 7.8 %; MONO ABS # 0.79 K/uL (0.11-0.59); NEUT % 74.2 %; NEUT ABS # 7.57 K/uL (1.4-6.5); PLATELET COUNT 166 K/uL (130-400); RED CELL DISTRIBUTION WIDTH CV 17.5 % (11.5-14.5); RED CELL DISTRIBUTION WIDTH SD 59.6 fL (36.4-46.3); WHITE BLOOD COUNT 10.19 K/uL (4.8-10.8)
[2017-06-16 06:01] LABS: INR 1.1 (0.9-1.1)
[2017-06-16 06:20] LABS: CALCIUM 9.3 mg/dl (8.5-10.1); CREATININE 1.19 mg/dl (0.60-1.40); POTASSIUM 4.4 mmol/L (3.5-5.1)
[2017-06-16] MEDS: METOPROLOL TARTRATE 100 MG TAB PO SCH (07:32)
[2017-06-16] MEDS: DILTIAZEM SR 60 MG CAP PO SCH (07:32)
[2017-06-16] MEDS: ASPIRIN 81 MG ECTAB PO SCH (07:33)
[2017-06-16] MEDS: LISINOPRIL 10 MG TAB PO SCH (07:33)
[2017-06-16] MEDS: MEMANTINE 10 MG TAB PO SCH ×2 (07:57→21:18)
[2017-06-16] MEDS: FUROSEMIDE INJ 20 MG in SYRINGE 0 ML IV SCH (07:57)
--- NOTE | 2017-06-16 10:46 | Cardiology Follow-Up ---
Subjective Date of Service: Jun 16, 2017. Pt evaluation today including: conversation w/ patient, physical exam, chart review, lab review, review of studies, review of inpatient medication list History of Present Illness This morning patient claims to be feeling well. He states he has some mild dizziness when getting up from a chair quickly. He has not had dizziness while ambulating to the bathroom. He is not aware of higher heart rates. He has no symptoms of chest discomfort any thinks his breathing is normal. Social History Smoking Status: Never Smoker History of Alcohol Use: No Review of Systems Respiratory: No shortness of breath Cardiac: No chest pain Objective Vital Signs Past 12 Hours Date Time Temp Pulse Resp B/P (MAP) Pulse Ox O2 Delivery O2 Flow Rate FiO2 06/16/17 08:00 Room Air 06/16/17 06:52 36.6 58 19 128/80 (96) 98 Room Air 06/16/17 04:00 97 BiPAP 06/16/17 03:58 139 126/81 06/16/17 03:32 37.0 70 18 108/68 (81) 97 06/16/17 00:00 97 BiPAP 06/15/17 23:58 36.3 77 18 115/78 (90) 97 Last Recorded Weight-Kilograms: 91.100 Physical Exam Constitutional: Level of Distress: moderate distress Lungs: Respiratory effort: no dyspnea, good air movement Auscultation: breath sounds normal, no rales/crackles Cardiovascular: Heart Auscultation: no murmurs, no rubs, tachycardia, irregular rate rhythm Peripheral Pulses: Bruits: none appreciated Extremities: no edema Data Laboratory Results: Last 24 Hours Test 06/16/17 05:21 White Blood Count 10.19 K/uL Red Blood Count 4.58 M/uL Hemoglobin 13.9 g/dL Hematocrit 42.5 % Mean Corpuscular Volume 92.8 fL Mean Corpuscular Hemoglobin 30.3 pg Mean Corpuscular Hemoglobin Concent 32.7 g/dl Platelet Count 166 K/uL Mean Platelet Volume 10.0 fL Neutrophils (%) (Auto) 74.2 % Lymphocytes (%) (Auto) 17.1 % Monocytes (%) (Auto) 7.8 % Eosinophils (%) (Auto) 0.7 % Basophils (%) (Auto) 0.1 % Neutrophils # (Auto) 7.57 K/uL Lymphocytes # (Auto) 1.74 K/uL Monocytes # (Auto) 0.79 K/uL Eosinophils # (Auto) 0.07 K/uL Basophils # (Auto) 0.01 K/uL RDW Standard Deviation 59.6 fL RDW Coefficient of Variation 17.5 % Immature Granulocyte % (Auto) 0.1 % Immature Granulocyte # (Auto) 0.01 K/uL Prothrombin Time 11.6 SECONDS Prothromb Time International Ratio 1.1 Sodium Level 135 mmol/L Potassium Level 4.4 mmol/L Chloride Level 101 mmol/L Carbon Dioxide Level 30 mmol/L Anion Gap 4.0 mmol/L Blood Urea Nitrogen 27 mg/dl Creatinine 1.19 mg/dl Est Creatinine Clear Calc Drug Dose 64.7 ml/min Estimated GFR () 71.3 Estimated GFR (Non- 61.5 BUN/Creatinine Ratio 23.1 Random Glucose 101 mg/dl Calcium Level 9.3 mg/dl Magnesium Level 2.1 mg/dl Telemetry reviewed: Persistent atrial fibrillation with higher heart rates during the day and reasonable rate control at night Assessment and Plan 1. Atrial fibrillation: Patient does exhibit a curious phenomenon of higher heart rates during the day and good rate control at nighttime. In the past it appears he has had some difficulty with bradycardia on aggressive rate control. This morning he received a shorter acting version of diltiazem in the hopes of controlling his rates during the day. Do think without a good opportunity to assess that affect. Clinically he is doing well. He will continue on anticoagulation and his metoprolol. We will titrate his dose as required by his heart rates. 2. Congestive heart failure: This appears to be resolved. He had an aggressive diuresis and lost a lot of fluid. His lung examination appears normal today. He does not take a diuretic as an outpatient. I do not think he requires any additional diuresis. Three. Coronary artery disease: Patient has history stent to the LAD. No current symptoms of chest discomfort. Continue aggressive secondary prevention.
[2017-06-16] MEDS: OXYCODONE/ACETAMINOPHEN 5-325 TAB PO PRN ×2 (13:44→23:57)
--- NOTE | 2017-06-16 14:34 | Hospitalist Progress Note ---
Hospitalist Progress Note Date of Service Jun 16, 2017. Subjective Pt evaluation today including: conversation w/ patient, conversation w/ family () Voiding: no voiding problems Feeling well, some SOB occasionally, Voiding after Crews removed and no further hematuria.No CP. Tele with rates in the 150s for several hours this AM requiring IV lopressor and now improved All Other Systems: Reviewed and Negative Objective Vital Signs Date Time Temp Pulse Resp B/P (MAP) Pulse Ox O2 Delivery O2 Flow Rate FiO2 06/16/17 12:00 Room Air 06/16/17 11:46 36.5 86 20 137/87 (104) 95 Room Air 06/16/17 08:00 Room Air 06/16/17 06:52 36.6 58 19 128/80 (96) 98 Room Air 06/16/17 04:00 97 BiPAP 06/16/17 03:58 139 126/81 06/16/17 03:32 37.0 70 18 108/68 (81) 97 06/16/17 00:00 97 BiPAP 06/15/17 23:58 36.3 77 18 115/78 (90) 97 06/15/17 22:27 72 93 2.0 72 06/15/17 20:17 36.6 112 16 157/89 (111) 95 Room Air 06/15/17 20:00 Room Air 06/15/17 17:48 139 109/64 06/15/17 16:16 36.7 77 16 109/64 (79) 92 Room Air 06/15/17 16:00 Room Air Physical Exam General Appearance: WD/WN, no apparent distress Eyes: normal inspection, sclerae normal ENT: hearing grossly normal Neck: trachea midline Respiratory/Chest: lungs clear, normal breath sounds, no respiratory distress, no accessory muscle use Cardiovascular: no murmur, + irregularly irregular (with normal rate), + pertinent finding (no pitting edema) Abdomen: normal bowel sounds, non tender, soft Extremities: no calf tenderness Neurologic/Psychiatric: alert, normal mood/affect Skin: normal color, warm/dry, no rash (except chronic venous stasis changes of legs bilat) Laboratory Results Last 24 Hours Test 06/16/17 05:21 White Blood Count 10.19 K/uL Red Blood Count 4.58 M/uL Hemoglobin 13.9 g/dL Hematocrit 42.5 % Mean Corpuscular Volume 92.8 fL Mean Corpuscular Hemoglobin 30.3 pg Mean Corpuscular Hemoglobin Concent 32.7 g/dl Platelet Count 166 K/uL Mean Platelet Volume 10.0 fL Neutrophils (%) (Auto) 74.2 % Lymphocytes (%) (Auto) 17.1 % Monocytes (%) (Auto) 7.8 % Eosinophils (%) (Auto) 0.7 % Basophils (%) (Auto) 0.1 % Neutrophils # (Auto) 7.57 K/uL Lymphocytes # (Auto) 1.74 K/uL Monocytes # (Auto) 0.79 K/uL Eosinophils # (Auto) 0.07 K/uL Basophils # (Auto) 0.01 K/uL RDW Standard Deviation 59.6 fL RDW Coefficient of Variation 17.5 % Immature Granulocyte % (Auto) 0.1 % Immature Granulocyte # (Auto) 0.01 K/uL Prothrombin Time 11.6 SECONDS Prothromb Time International Ratio 1.1 Sodium Level 135 mmol/L Potassium Level 4.4 mmol/L Chloride Level 101 mmol/L Carbon Dioxide Level 30 mmol/L Anion Gap 4.0 mmol/L Blood Urea Nitrogen 27 mg/dl Creatinine 1.19 mg/dl Est Creatinine Clear Calc Drug Dose 64.7 ml/min Estimated GFR () 71.3 Estimated GFR (Non- 61.5 BUN/Creatinine Ratio 23.1 Random Glucose 101 mg/dl Calcium Level 9.3 mg/dl Magnesium Level 2.1 mg/dl Assessment and Plan This pt is a 71-year-old male with a history of chronic afib on coumadin, HTN, hx MT with cardiac stents, 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 PT was found to be in afib afterwards and was admitted. S/p right ureteroscopy/ureteral stent placement/Hematuria-hematuria now resolved , hgb stable -Pain management with percocet prn, pyridium -Urology consulted - appreciate recs - signed off, plan for ureteral stent removal on 06/28 -Crews dc'd and passed TOV -received Cipro as a prophylactic with procedure, now discontinued -need to find out if anticoagulation will need ot be held prior to stent removal on 06/28 A. fib with RVR /Chronic atrial fibrillation/Acute on chronic diastolic CHF- was tachycardic last night requiring IV lopressor, now improved. No longer volume overloaded after IV diuresis, has lost 6 L net neg on fluid. -Appreciate cardiology consultation-adding on short acting diltiazem for higher heart rates during the day and lowering metoprolol evening dose for previously low heart rates at night-no indication for pacer at this time - Cont lopressor 100 mg QAM, but decreased his evening dose of metoprolol to 50 mg and add a daytime dose of short acting diltiazem (Cardizem SR) - continue to monitor to assess rate control. - Coumadin held since Friday 06/09 -ok to restart Coumadin with Lovenox bridge as per his [facility] instructions-give coumadin 4mg daily today and Lovenox 1mg/kg SQ bid -follow PT/INR -dc IV lasix, no need for po diuretics as per Cardiology Hypertension/CAD with history of MT status post cardiac stent/h/o CVA 2010-BPs stable - Continue Lopressor as per cards recs above. Cont lisinopril 10 mg daily, ASA 81 mg -restarting coumadin as above Dementia-stable -Continue Namenda 10 mg bid -restart home exelon 3 mg QAM upon dc-not available here BARBARA-on CPAP-stable -continue CPAP qhs DVT ppx: SCDs,Lovenox, coumadin CODE STATUS: FULL code Disposition: From home, lives with , dc to home when rates better controlled , PT/OT evals
[2017-06-16] MEDS ORDERED: WARFARIN SOD 2 MG TAB PO SCH (16:00)
[2017-06-16] MEDS ORDERED: WARFARIN SOD 4 MG TAB PO SCH (16:00)
[2017-06-16] MEDS: ENOXAPARIN 100 MG/1ML SYR SQ SCH (17:52)
[2017-06-16] MEDS: ACETAMINOPHEN 325 MG TAB PO PRN (20:35)
[2017-06-16] MEDS: ATORVASTATIN 40 MG TAB PO SCH (21:18)
[2017-06-16] MEDS: METOPROLOL TARTRATE 50 MG TAB PO SCH (21:18)
[2017-06-16] MEDS: CHOLECALCIFEROL 1000 INTER.UNIT TAB PO SCH (21:18)
[2017-06-16] MEDS: ONDANSETRON INJ 2 MG/ML 2 ML VIAL IV PRN (23:29)
[2017-06-17] VITALS (9 sets, daily range): BP systolic 116–158; BP diastolic 75–99; PULSE 78–100; TEMP 36.6–37.1; O2SAT 95–98
[2017-06-17] MEDS: ENOXAPARIN 100 MG/1ML SYR SQ SCH ×2 (06:09→16:55)
[2017-06-17 06:47] LABS: BASO % 0.3 %; BASO ABS # 0.03 K/uL (0-0.2); EOS % 1.1 %; EOS ABS # 0.12 K/uL (0-0.5); HEMATOCRIT 42.6 % (42-52); IG# 0.02 K/uL (0.00-0.02); LYMPH % 15.3 %; LYMPH ABS # 1.63 K/uL (1.2-3.4); MEAN CORPUSCULAR HEMOGLOBIN 30.6 pg (25-34); MEAN CORPUSCULAR HGB CONC 32.9 g/dl (32-36); MONO % 9.4 %; NEUT % 73.7 %; NEUT ABS # 7.83 K/uL (1.4-6.5); PLATELET COUNT 155 K/uL (130-400); RED CELL DISTRIBUTION WIDTH CV 17.3 % (11.5-14.5); RED CELL DISTRIBUTION WIDTH SD 58.7 fL (36.4-46.3); WHITE BLOOD COUNT 10.63 K/uL (4.8-10.8)
[2017-06-17 06:52] LABS: INR 1.1 (0.9-1.1)
[2017-06-17] MEDS: ONDANSETRON INJ 2 MG/ML 2 ML VIAL IV PRN (07:22)
[2017-06-17 07:23] LABS: CALCIUM 9.2 mg/dl (8.5-10.1); CREATININE 1.45 mg/dl (0.60-1.40); POTASSIUM 4.6 mmol/L (3.5-5.1)
[2017-06-17] MEDS: ASPIRIN 81 MG ECTAB PO SCH (08:10)
[2017-06-17] MEDS: MEMANTINE 10 MG TAB PO SCH ×2 (08:10→21:28)
[2017-06-17] MEDS: LISINOPRIL 10 MG TAB PO SCH (08:10)
[2017-06-17] MEDS: METOPROLOL TARTRATE 100 MG TAB PO SCH (08:11)
[2017-06-17] MEDS: DILTIAZEM SR 60 MG CAP PO SCH (08:11)
[2017-06-17] MEDS: METOPROLOL TARTRATE 1 MG/ML VIAL IV PRN (09:42)
[2017-06-17] MEDS: MoRPHine SULFATE 2 MG/ML CARP IV PRN (09:45)
[2017-06-17] MEDS ORDERED: DILTIAZEM HCL 30 MG TAB PO ONE (10:45)
--- NOTE | 2017-06-17 11:04 | Hospitalist Progress Note ---
Hospitalist Progress Note Date of Service Jun 17, 2017. Subjective Pt evaluation today including: conversation w/ patient, conversation w/ e business consultant (Cardiology) Had dry heaving all last night and a small amount of bilious emesis this AM, having severe right flank pain, but also c/o some LLQ abd pain. In rapid A-fib on tele with rates in the 180s at highest with vomiting. Constitutional: No fever Respiratory: + shortness of breath (occasionally) Cardiovascular: No chest pain Male : + hematuria (mild, not more than previous) All Other Systems: Reviewed and Negative Objective Vital Signs Date Time Temp Pulse Resp B/P (MAP) Pulse Ox O2 Delivery O2 Flow Rate FiO2 06/17/17 09:42 140 131/93 06/17/17 06:50 36.6 100 19 131/93 (106) 95 Room Air 06/17/17 04:35 36.8 90 18 127/78 (94) 95 06/17/17 04:00 95 Room Air 06/17/17 00:03 36.7 87 18 126/84 (98) 97 06/17/17 00:00 97 Room Air 06/16/17 20:00 97 Room Air 06/16/17 19:01 36.8 84 18 117/74 (88) 97 Room Air 06/16/17 16:00 Room Air 06/16/17 15:04 36.9 87 18 95/60 (72) 94 Room Air 06/16/17 12:00 Room Air 06/16/17 11:46 36.5 86 20 137/87 (104) 95 Room Air Physical Exam General Appearance: WD/WN (but appears ill), no apparent distress Eyes: normal inspection, sclerae normal ENT: hearing grossly normal Neck: trachea midline Respiratory/Chest: lungs clear, normal breath sounds, no respiratory distress, no accessory muscle use Cardiovascular: no murmur, + tachycardia, + irregularly irregular Abdomen: normal bowel sounds, soft, + tenderness (in RLQ and R +CVA tenderness without guarding or rebound, +mild LLQ tenderness without guarding or rebound) Extremities: non-tender, normal inspection, no pedal edema, no calf tenderness Neurologic/Psychiatric: alert, normal mood/affect Skin: normal color, warm/dry, no rash Laboratory Results Last 24 Hours Test 06/17/17 06:17 White Blood Count 10.63 K/uL Red Blood Count 4.58 M/uL Hemoglobin 14.0 g/dL Hematocrit 42.6 % Mean Corpuscular Volume 93.0 fL Mean Corpuscular Hemoglobin 30.6 pg Mean Corpuscular Hemoglobin Concent 32.9 g/dl Platelet Count 155 K/uL Mean Platelet Volume 10.0 fL Neutrophils (%) (Auto) 73.7 % Lymphocytes (%) (Auto) 15.3 % Monocytes (%) (Auto) 9.4 % Eosinophils (%) (Auto) 1.1 % Basophils (%) (Auto) 0.3 % Neutrophils # (Auto) 7.83 K/uL Lymphocytes # (Auto) 1.63 K/uL Monocytes # (Auto) 1.00 K/uL Eosinophils # (Auto) 0.12 K/uL Basophils # (Auto) 0.03 K/uL RDW Standard Deviation 58.7 fL RDW Coefficient of Variation 17.3 % Immature Granulocyte % (Auto) 0.2 % Immature Granulocyte # (Auto) 0.02 K/uL Prothrombin Time 11.2 SECONDS Prothromb Time International Ratio 1.1 Sodium Level 133 mmol/L Potassium Level 4.6 mmol/L Chloride Level 98 mmol/L Carbon Dioxide Level 29 mmol/L Anion Gap 6.0 mmol/L Blood Urea Nitrogen 37 mg/dl Creatinine 1.45 mg/dl Est Creatinine Clear Calc Drug Dose 51.5 ml/min Estimated GFR () 56.1 Estimated GFR (Non- 48.4 BUN/Creatinine Ratio 25.5 Random Glucose 121 mg/dl Calcium Level 9.2 mg/dl Magnesium Level 2.2 mg/dl Assessment and Plan This pt is a 71-year-old male with a history of chronic afib on coumadin, HTN, hx OR with cardiac stents, 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 PT was found to be in afib afterwards and was admitted. S/p right ureteroscopy/ureteral stent placement/Hematuria- hgb stable, now with worsening right flank pain and RLQ abd pain, N/V, no urinary retention -continue Pain management with percocet prn, pyridium, and morphine -Zofran for nausea -Urology ordered CT abd/pel for today to reassess cause of acute pain -plan for ureteral stent removal on 06/28 -Crews dc'd and passed TOV, now consider replacing Crews -received Cipro as a prophylactic with procedure, since discontinued -need to find out if anticoagulation will need to be held prior to stent removal on 06/28 A. fib with RVR /Chronic atrial fibrillation/Acute on chronic diastolic CHF- continues to be tachycardic last night requiring IV lopressor again this AM, could be related to N/V. No longer volume overloaded after IV diuresis, has lost 6 L net neg on fluid. Actually may be volumed depleted this AM with rising clinical editor -add on diltiazem IR 30mg po x 1 now and may add more this afternoon if rates still high -Appreciate cardiology consultation - Cont lopressor 100 mg QAM, but decreased his evening dose of metoprolol to 50 mg and add a daytime dose of short acting diltiazem (Cardizem SR) - continue to monitor to assess rate control. - Coumadin previously held since Friday 06/09, but then restarted along with bridging Lovenox on 06/16-will hold all AC now in case of Urology procedure today -follow PT/INR -dc IV lasix, no need for po diuretics as per Cardiology -will give 50 mls/hr of NS now while NPO and N/V Hypertension/CAD with history of OR status post cardiac stent/h/o CVA 2010-BPs stable - Continue Lopressor as per cards recs above. Will hold lisinopril 10 mg daily in setting of rising clinical editor -continue ASA 81 mg Dementia-stable -Continue Namenda 10 mg bid -restart home exelon 3 mg QAM upon dc-not available here BARBARA-on CPAP-stable -continue CPAP qhs DVT ppx: SCDs,Lovenox, coumadin on hold again CODE STATUS: FULL code Disposition: From home, lives with , dc to home when rates better controlled , PT/OT evals
--- NOTE | 2017-06-17 12:46 | DIAGNOSTIC IMAGING REPORT ---
CT SCAN OF THE ABDOMEN AND PELVIS WITHOUT IV CONTRAST CLINICAL HISTORY: Generalized abdominal pain. Nausea and vomiting. COMPARISON STUDY: Abdominal CT dated 10/23/2016. TECHNIQUE: CT scan of the abdomen and pelvis is performed from the lung bases to the proximal femora. Images are reviewed in the axial, sagittal, and coronal planes. IV contrast was not administered for this examination as per the referring clinician. A dose lowering technique was utilized adhering to the principles of ALARA. CT DOSE: 1015.72 mGy.cm FINDINGS: Lung bases: The heart is mildly enlarged and without pericardial effusion. The coronary arteries are densely calcified. There are small calcified granulomas identified at the lung bases. No airspace consolidation or pleural effusion is seen. There is a small fat-containing Bochdalek hernia at the left lung base. There is a tiny hiatal hernia. Liver: The unenhanced liver is normal in size, contour, and attenuation. There is no intrahepatic biliary ductal dilatation. Gallbladder: Unremarkable. Spleen: Normal in size and attenuation. There are calcified splenic granulomas. Pancreas: The unenhanced pancreas is moderately atrophic and grossly unremarkable. Adrenal glands: Unremarkable. Kidneys: The unenhanced kidneys demonstrate cortical atrophy and are without hydronephrosis. A right ureteral stent is in place. No calcifications are seen in the right ureter along the course of the stent. Mild stranding is noted along the course of the right ureter. There are least 3 nonobstructing right renal calculi measuring up to 8 mm. There are at least 7 nonobstructing left or a calculi measuring up to 6 mm. There is no evidence of contour deforming renal mass lesion. Abdominal vasculature: The abdominal aorta is normal in course and caliber noting moderate atherosclerotic calcification. Bowel: There is a small duodenal diverticulum. No bowel obstruction is seen. There is mild to moderate colonic fecal retention. A small duodenal diverticulum is incidentally noted. The appendix is well-visualized and normal. Peritoneum: There is trace free fluid in the pelvis. No intraperitoneal free air is seen. Small foci of induration and subcutaneous gas within the fat of the ventral abdominal wall are likely related to subcutaneous injections. Lymphadenopathy: None. Pelvic viscera: Small foci of gas are present within the bladder lumen and a right ureteral stent is in place. The bladder is otherwise normal as imaged. The prostate and seminal vesicles are normal as visualized. Skeletal structures: The skeletal structures are osteopenic. Mild lumbosacral spondylosis is observed. No lytic or blastic lesions are seen. IMPRESSION: 1. A right ureteral stent is in place. There is no hydronephrosis, and no calculus is identified in the right ureter along the course of the stent. 2. Mild stranding along the course of the right ureter is likely related to the presence of an indwelling stent. Correlation with urinalysis will be required. 3. Bilateral nonobstructing renal calculi as above. 4. A small amount of gas is present within the bladder lumen, likely related to instrumentation. Again, correlation with urinalysis will be required. 5. There is mild to moderate clonic fecal retention. No bowel obstruction is seen. 6. Cardiomegaly. 7. Additional findings as above. Electronically signed by: Emile Neal M.D. 06/17/2017 12:45 PM Dictated Date/Time: 06/17/2017 12:31 PM
[2017-06-17] MEDS: SODIUM CHLORIDE 0.9% 1000ML 1,000 ML IV SCH (13:07)
[2017-06-17] MEDS ORDERED: BISACODYL 10 MG SUPP PR STA (13:33)
[2017-06-17] MEDS ORDERED: SOAP SUDS ENEMA PR PRN (13:45)
[2017-06-17] MEDS: WARFARIN SOD 2 MG TAB PO SCH (16:55)
[2017-06-17] MEDS: OXYCODONE/ACETAMINOPHEN 5-325 TAB PO PRN (17:49)
[2017-06-17] MEDS: METOPROLOL TARTRATE 50 MG TAB PO SCH (21:29)
[2017-06-17] MEDS: CHOLECALCIFEROL 1000 INTER.UNIT TAB PO SCH (21:29)
[2017-06-17] MEDS: ATORVASTATIN 40 MG TAB PO SCH (21:29)
[2017-06-18] VITALS (10 sets, daily range): BP systolic 92–140; BP diastolic 54–78; PULSE 71–116; TEMP 36.7–37.7; O2SAT 94–97
[2017-06-18] MEDS: METOPROLOL TARTRATE 1 MG/ML VIAL IV PRN (05:54)
[2017-06-18] MEDS: ENOXAPARIN 100 MG/1ML SYR SQ SCH ×2 (05:55→17:48)
[2017-06-18 06:13] LABS: BASO % 0.3 %; BASO ABS # 0.03 K/uL (0-0.2); EOS % 1.5 %; EOS ABS # 0.16 K/uL (0-0.5); HEMATOCRIT 41.5 % (42-52); HEMOGLOBIN 13.7 g/dL (14.0-18.0); IG# 0.03 K/uL (0.00-0.02); LYMPH % 13.9 %; LYMPH ABS # 1.49 K/uL (1.2-3.4); MEAN CELL VOLUME 93.3 fL (80-100); MEAN CORPUSCULAR HEMOGLOBIN 30.8 pg (25-34); MEAN PLATELET VOLUME 10.1 fL (7.4-10.4); MONO % 10.5 %; MONO ABS # 1.12 K/uL (0.11-0.59); NEUT % 73.5 %; NEUT ABS # 7.88 K/uL (1.4-6.5); PLATELET COUNT 133 K/uL (130-400); RED CELL DISTRIBUTION WIDTH SD 57.9 fL (36.4-46.3); WHITE BLOOD COUNT 10.71 K/uL (4.8-10.8)
[2017-06-18 06:38] LABS: CALCIUM 8.7 mg/dl (8.5-10.1); CREATININE 1.6 mg/dl (0.60-1.40); POTASSIUM 4.4 mmol/L (3.5-5.1)
[2017-06-18] MEDS: MEMANTINE 10 MG TAB PO SCH ×2 (07:45→21:06)
[2017-06-18] MEDS: METOPROLOL TARTRATE 100 MG TAB PO SCH (07:45)
[2017-06-18] MEDS: PHENAZOPYRIDINE HCL 200 MG TAB PO PRN (07:46)
[2017-06-18] MEDS: ASPIRIN 81 MG ECTAB PO SCH (07:46)
[2017-06-18] MEDS: DILTIAZEM SR 60 MG CAP PO SCH ×3 (07:46→21:04)
[2017-06-18] MEDS: SODIUM CHLORIDE 0.9% 1000ML 1,000 ML IV SCH ×2 (07:46→21:04)
--- NOTE | 2017-06-18 10:19 | Cardiology Follow-Up ---
Subjective Date of Service: Jun 18, 2017. Pt evaluation today including: conversation w/ patient, physical exam, lab review, review of studies, review of inpatient medication list History of Present Illness This is a very pleasant 71-year-old gentleman who has a history of permanent atrial fibrillation for which he is on warfarin anticoagulation, long-standing coronary disease for which he has had stent placement in the LAD, hypertension, hyperlipidemia, diabetes mellitus and recurrent nephrolithiasis. In October 2016 he had a left ureteral stone for which he had a left ureteral stent placed , afterwards he had atrial fibrillation with a rapid ventricular response and in follow-up had a slow heart rate resulting in decrease in his diltiazem, he was also on digoxin as well as metoprolol. Currently his medication list only lists metoprolol for heart rate control. He is maintained on metoprolol 100 mg twice daily, which I understand he took this morning. Echocardiography on October 25, 2016 showed normal left ventricular size and function with mild mitral regurgitation. He had his urologic procedure June 14, 2017 which included a right ureteral stent, afterwards he was hypertensive and tachycardic, he then went into congestive heart failure although seemed to be oxygenating reasonably well. At the time of my evaluation some hours after his procedure in PACU he was breathing somewhat heavily but appeared comfortable, he denied pain and had only minimal complaints of shortness of breath. He denied chest discomfort. His heart rate was quite fast and his blood pressure was quite high therefore he was given intravenous metoprolol, however he was still fast but with his history of being slow on medications I did not want to give him a lot of long- acting medications therefore started him on intravenous diltiazem and continued his outpatient metoprolol. We then transitioned to oral medications, using shorter acting drugs during the day to avoid nocturnal bradycardia which he was having on [id number] medications. Today he has no complaints, he is not aware of his heart rate being fast for the most part. Social History Smoking Status: Never Smoker History of Alcohol Use: No Review of Systems Respiratory: No shortness of breath (occasionally) Cardiac: No chest pain Medications Cardiovascular: Item Value Date Time Warfarin Sodium 2 mg 06/17/17 1600 (Coumadin Tab) DAILY@16/PO 06/17/17 1655 Enoxaparin Sodium 90 mg 06/16/17 1800 (Lovenox Inj) Q12H/SQ 06/18/17 0555 Metoprolol 100 mg 06/16/17 0900 Tartrate QAM/PO 06/18/17 0745 (Lopressor Tab) Metoprolol 50 mg 06/15/17 2100 Tartrate QPM/PO 06/17/172128 (Lopressor Tab) Diltiazem HCl 60 mg 06/15/17 0945 (Cardizem Sr) DAILY/PO 06/18/17 0746 Aspirin 81 mg 06/15/17 0900 (Ecotrin Tab) QAM/PO 06/18/17 0746 Atorvastatin 40 mg 06/14/17 2100 Calcium HS/PO 06/17/172128 (Lipitor Tab) Objective Vital Signs Past 12 Hours Date Time Temp Pulse Resp B/P (MAP) Pulse Ox O2 Delivery O2 Flow Rate FiO2 06/18/17 08:18 37.7 116 18 131/78 (95) 94 Room Air 06/18/17 05:54 146 06/18/17 04:15 Room Air 06/18/17 02:53 37.2 95 18 140/59 (86) 97 06/18/17 00:15 36.9 79 18 130/77 (94) 94 06/18/17 00:00 Room Air 06/17/17 22:29 98 98 2.0 Last Recorded Weight-Kilograms: 86.500 Physical Exam Constitutional: Level of Distress: moderate distress Lungs: Respiratory effort: no dyspnea, good air movement Auscultation: breath sounds normal, no rales/crackles Cardiovascular: Heart Auscultation: no murmurs, no rubs, tachycardia, irregular rate rhythm Peripheral Pulses: Bruits: none appreciated Extremities: no edema Data Laboratory Results: Last 24 Hours Test 06/18/17 05:21 White Blood Count 10.71 K/uL Red Blood Count 4.45 M/uL Hemoglobin 13.7 g/dL Hematocrit 41.5 % Mean Corpuscular Volume 93.3 fL Mean Corpuscular Hemoglobin 30.8 pg Mean Corpuscular Hemoglobin Concent 33.0 g/dl Platelet Count 133 K/uL Mean Platelet Volume 10.1 fL Neutrophils (%) (Auto) 73.5 % Lymphocytes (%) (Auto) 13.9 % Monocytes (%) (Auto) 10.5 % Eosinophils (%) (Auto) 1.5 % Basophils (%) (Auto) 0.3 % Neutrophils # (Auto) 7.88 K/uL Lymphocytes # (Auto) 1.49 K/uL Monocytes # (Auto) 1.12 K/uL Eosinophils # (Auto) 0.16 K/uL Basophils # (Auto) 0.03 K/uL RDW Standard Deviation 57.9 fL RDW Coefficient of Variation 17.0 % Immature Granulocyte % (Auto) 0.3 % Immature Granulocyte # (Auto) 0.03 K/uL Sodium Level 136 mmol/L Potassium Level 4.4 mmol/L Chloride Level 101 mmol/L Carbon Dioxide Level 31 mmol/L Anion Gap 5.0 mmol/L Blood Urea Nitrogen 31 mg/dl Creatinine 1.60 mg/dl Est Creatinine Clear Calc Drug Dose 46.8 ml/min Estimated GFR () 49.9 Estimated GFR (Non- 43.0 BUN/Creatinine Ratio 19.4 Random Glucose 89 mg/dl Calcium Level 8.7 mg/dl Magnesium Level 1.9 mg/dl Telemetry reviewed: Initially he was slow at night when we had his daytime rate controlled, however over the last several days he has had an elevated heart rate at night with better control during the day. His heart rate was very fast this morning prior to receiving his morning medications. Assessment and Plan 1. CHF: Diastolic, at this point he seems euvolemic and his weight is stable. 2. AF: Chronic, but with rapid heart rate. As an outpatient his rate controlling medications were decreased due to bradycardia, however here on his outpatient medications his heart rate was very fast during the day but slow at night. He seems to have a tachybradycardia component in that he is rapid during the day and slow at night on [id number] medications. Sometimes pacemaker is required for this, currently however he does not have indication for this. I would like to try to continue to get by with medications, that will entail using relatively short acting medications which work during the day and taper off at night. On his current regimen his heart rate is too fast at night. I am therefore going to increase his diltiazem including an evening dose but still is a higher dose during the day. Hopefully we can get his rate under control. 3. CAD: No evidence of acute ischemic event, I would like to have his heart rate under better control however. Thank you for allowing me to participate in his care.
[2017-06-18] MEDS ORDERED: DILTIAZEM SR 60 MG CAP PO SCH (10:30)
--- NOTE | 2017-06-18 11:39 | Progress Note ---
Subjective Date of Service: Jun 18, 2017. Subjective Pt evaluation today including: conversation w/ patient, chart review, lab review Voiding: no voiding problems 71 yo male s/p right URS. Admitted for tachycardia post-op. Pt denies pain this morning. Denies n/v. + gross hematuria, dysuria, urgency, and frequency today. CT scan from yesterday reviewed. Stent appears in good position. Noted to have constipation on CT. Per daughter, the pt did have a suppository and enema yesterday; + BM after. Daughter concerned the pt has worsening confusion this morning. He is oriented to person and place. Does not know the year, but does know who the president is. Temp of 37.7C this morning. UA ordered by Dr. Lopez. Problem List Medical Problems: (1) Calculus of distal right ureter Status: Acute (2) Cellulitis of right lower extremity Status: Acute (3) CVA (cerebral infarction) Status: Chronic (4) Dehydration Status: Acute (5) Diplopia Status: Acute (6) Double vision with both eyes open Status: Acute (7) Facial contusion Status: Acute (8) Fall Status: Acute (9) Hematuria Status: Acute (10) Hypertensive urgency Status: Acute (11) Left elbow contusion Status: Acute (12) Muscle cramping Status: Acute (13) Obstruction of right ureteropelvic junction due to stone Status: Acute (14) Renal colic Status: Acute (15) Renal insufficiency Status: Acute (16) Right wrist sprain Status: Acute Review of Systems Constitutional: No fever, No chills Respiratory: No shortness of breath Cardiac: No chest pain Abdomen: No pain, No nausea, No vomiting Male : + hematuria, No dysuria Heme: No abnormal bleeding/bruising Objective Vital Signs Date Time Temp Pulse Resp B/P (MAP) Pulse Ox O2 Delivery O2 Flow Rate FiO2 06/18/17 08:18 37.7 116 18 131/78 (95) 94 Room Air 06/18/17 08:00 Room Air 06/18/17 05:54 146 06/18/17 04:15 Room Air 06/18/17 02:53 37.2 95 18 140/59 (86) 97 06/18/17 00:15 36.9 79 18 130/77 (94) 94 4/30/18 00:00 Room Air 06/17/17 22:29 98 98 2.0 06/17/17 20:00 Room Air 06/17/17 19:12 37.1 80 18 116/75 (89) 95 Room Air 06/17/17 16:20 36.6 82 16 133/92 (106) 97 Room Air 06/17/17 16:00 Room Air 06/17/17 12:00 Room Air 06/17/17 11:38 36.6 78 20 158/99 (118) 95 Room Air Physical Exam General Appearance: no apparent distress Eyes: normal inspection ENT: hearing grossly normal Neck: no JVD Respiratory/Chest: no respiratory distress, no accessory muscle use Cardiovascular: no JVD Extremities: normal inspection Neurologic/Psychiatric: alert, normal mood/affect, oriented x 3 Skin: normal color Laboratory Results Last 24 Hours Test 06/18/17 05:21 White Blood Count 10.71 K/uL Red Blood Count 4.45 M/uL Hemoglobin 13.7 g/dL Hematocrit 41.5 % Mean Corpuscular Volume 93.3 fL Mean Corpuscular Hemoglobin 30.8 pg Mean Corpuscular Hemoglobin Concent 33.0 g/dl Platelet Count 133 K/uL Mean Platelet Volume 10.1 fL Neutrophils (%) (Auto) 73.5 % Lymphocytes (%) (Auto) 13.9 % Monocytes (%) (Auto) 10.5 % Eosinophils (%) (Auto) 1.5 % Basophils (%) (Auto) 0.3 % Neutrophils # (Auto) 7.88 K/uL Lymphocytes # (Auto) 1.49 K/uL Monocytes # (Auto) 1.12 K/uL Eosinophils # (Auto) 0.16 K/uL Basophils # (Auto) 0.03 K/uL RDW Standard Deviation 57.9 fL RDW Coefficient of Variation 17.0 % Immature Granulocyte % (Auto) 0.3 % Immature Granulocyte # (Auto) 0.03 K/uL Sodium Level 136 mmol/L Potassium Level 4.4 mmol/L Chloride Level 101 mmol/L Carbon Dioxide Level 31 mmol/L Anion Gap 5.0 mmol/L Blood Urea Nitrogen 31 mg/dl Creatinine 1.60 mg/dl Est Creatinine Clear Calc Drug Dose 46.8 ml/min Estimated GFR () 49.9 Estimated GFR (Non- 43.0 BUN/Creatinine Ratio 19.4 Random Glucose 89 mg/dl Calcium Level 8.7 mg/dl Magnesium Level 1.9 mg/dl Assessment and Plan POD #4 S/P right ureteroscopy and stone extraction with stent placement Pain and n/v improved. Stent appears in good position on CT. Avoid surgical intervention at this time. Continue supportive management with Pyridium and pain medication. Can also add in Flomax and oxybutynin if pt continues to have stent discomfort. I did discuss with the pt and his daughter this morning that hematuria, dysuria , urgency, frequency, and even back discomfort can be common after stent placement. Plan for cysto stent removal 5-10 at 12:45pm with Dr. Ross. No further management at this time. Recall as needed issues.
[2017-06-18] MEDS: POLYETHYLENE (MIRALAX) 17 GM PACK PO PRN (12:18)
--- NOTE | 2017-06-18 12:24 | Hospitalist Progress Note ---
Hospitalist Progress Note Date of Service Jun 18, 2017. 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 Rapid Afib as high as 200 for rate this AM, but average rate in 120s. He says his rt flank pain and abd pain is much improved from yesterday. RN reports he is agitated this AM, had a borderline fever but came back down on its own. He did get percocet last night, only had a small BM yesterday after suppository and enema. All Other Systems: Reviewed and Negative Objective Vital Signs Date Time Temp Pulse Resp B/P (MAP) Pulse Ox O2 Delivery O2 Flow Rate FiO2 06/18/17 11:33 37.4 102 18 92/60 (71) 94 Room Air 06/18/17 08:18 37.7 116 18 131/78 (95) 94 Room Air 06/18/17 08:00 Room Air 06/18/17 05:54 146 06/18/17 04:15 Room Air 06/18/17 02:53 37.2 95 18 140/59 (86) 97 06/18/17 00:15 36.9 79 18 130/77 (94) 94 06/18/17 00:00 Room Air 06/17/17 22:29 98 98 2.0 06/17/17 20:00 Room Air 06/17/17 19:12 37.1 80 18 116/75 (89) 95 Room Air 06/17/17 16:20 36.6 82 16 133/92 (106) 97 Room Air 06/17/17 16:00 Room Air Physical Exam General Appearance: WD/WN, no apparent distress Eyes: normal inspection, sclerae normal ENT: hearing grossly normal Neck: trachea midline Respiratory/Chest: lungs clear, normal breath sounds, no respiratory distress, no accessory muscle use Cardiovascular: + tachycardia, + irregularly irregular Abdomen: normal bowel sounds, non tender, soft Extremities: normal inspection, no calf tenderness, + swelling (trace pitting edema bilat legs) Neurologic/Psychiatric: alert, normal mood/affect, + disoriented (only oriented to person and place, but not time) Skin: normal color, warm/dry, no rash Laboratory Results Last 24 Hours Test 06/18/17 05:06/18/17 11:29 White Blood Count 10.71 K/uL Red Blood Count 4.45 M/uL Hemoglobin 13.7 g/dL Hematocrit 41.5 % Mean Corpuscular Volume 93.3 fL Mean Corpuscular Hemoglobin 30.8 pg Mean Corpuscular Hemoglobin Concent 33.0 g/dl Platelet Count 133 K/uL Mean Platelet Volume 10.1 fL Neutrophils (%) (Auto) 73.5 % Lymphocytes (%) (Auto) 13.9 % Monocytes (%) (Auto) 10.5 % Eosinophils (%) (Auto) 1.5 % Basophils (%) (Auto) 0.3 % Neutrophils # (Auto) 7.88 K/uL Lymphocytes # (Auto) 1.49 K/uL Monocytes # (Auto) 1.12 K/uL Eosinophils # (Auto) 0.16 K/uL Basophils # (Auto) 0.03 K/uL RDW Standard Deviation 57.9 fL RDW Coefficient of Variation 17.0 % Immature Granulocyte % (Auto) 0.3 % Immature Granulocyte # (Auto) 0.03 K/uL Sodium Level 136 mmol/L Potassium Level 4.4 mmol/L Chloride Level 101 mmol/L Carbon Dioxide Level 31 mmol/L Anion Gap 5.0 mmol/L Blood Urea Nitrogen 31 mg/dl Creatinine 1.60 mg/dl Est Creatinine Clear Calc Drug Dose 46.8 ml/min Estimated GFR () 49.9 Estimated GFR (Non- 43.0 BUN/Creatinine Ratio 19.4 Random Glucose 89 mg/dl Calcium Level 8.7 mg/dl Magnesium Level 1.9 mg/dl Assessment and Plan This pt is a 71-year-old male with a history of chronic afib on coumadin, HTN, hx [place] with cardiac stents, 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 PT was found to be in afib afterwards and was admitted. S/p right ureteroscopy/ureteral stent placement/Hematuria- hgb stable, right flank pain and RLQ abd pain, as well as N/V today much improved, no urinary retention -continue Pain management with percocet prn, pyridium, and morphine prn -Zofran for nausea -Urology ordered CT abd/pel to reassess cause of acute pain on 06/17 and no issues urologically -plan for ureteral stent removal on 06/28 -Crews dc'd and passed TOV, hematuria persists but able to pass urine -received Cipro as a prophylactic with procedure, since discontinued -need to find out if anticoagulation will need to be held prior to stent removal on 06/28 -check UA and Ur cx if indicated today given agitation and borderline fever A. fib with RVR /Chronic atrial fibrillation/Acute on chronic diastolic CHF- continues to be significantly tachycardic requiring intermittent IV lopressor No longer volume overloaded after IV diuresis, has lost 6 L net neg on fluid. Actually may be volumed depleted this AM with rising clinical program coordinator again today and N/V yesterday -Cardiology increase diltiazem SR to 120mg in AM and 60mg qPM -Appreciate cardiology consultation - Cont lopressor 100 mg QAM, but decreased his evening dose of metoprolol to 50 mg for previous nighttime bradycardia - Coumadin previously held since Friday 06/09, but then restarted along with bridging Lovenox on 06/16 -follow PT/INR in AM -dcd IV lasix, no need for po diuretics as per Cardiology -will actually increase IVFs to 75 mls/hr of NS given continuing rise in clinical program coordinator Hypertension/CAD with history of KS status post cardiac stent/h/o CVA 2010-BPs stable - Continue Lopressor, diltiazem as per cards recs above. -continuing to hold lisinopril 10 mg daily in setting of rising clinical program coordinator -continue ASA 81 mg Dementia with some hospital delirium-could be from percocet use, rising clinical program coordinator, metabolic encephalopathy -Continue Namenda 10 mg bid -restart home exelon 3 mg QAM upon dc-not available here -checking UA for infection -avoid opioids if possible -treat constipation as below -supportive care COnstipation-seen on CT, on opioids and recent Urological procedure -d/w RN to give Miralax today -enemas and bisacodyl suppos as needed -add Docusate/senna bid BARBARA-on CPAP-stable -continue CPAP qhs DVT ppx: SCDs,Lovenox, coumadin CODE STATUS: FULL code Disposition: From home, lives with , dc to home when rates better controlled , PT/OT evals
[2017-06-18] MEDS ORDERED: DOCUSATE SODIUM/SENNA 50/8.6MG TAB PO ONE (12:30)
[2017-06-18] MEDS: WARFARIN SOD 2 MG TAB PO SCH (15:33)
[2017-06-18] MEDS: ATORVASTATIN 40 MG TAB PO SCH (21:05)
[2017-06-18] MEDS: METOPROLOL TARTRATE 50 MG TAB PO SCH (21:06)
[2017-06-18] MEDS: DOCUSATE SODIUM/SENNA 50/8.6MG TAB PO SCH (21:07)
[2017-06-18] MEDS: CHOLECALCIFEROL 1000 INTER.UNIT TAB PO SCH (21:07)
[2017-06-19] VITALS (10 sets, daily range): BP systolic 90–138; BP diastolic 62–81; PULSE 46–118; TEMP 36.7–37.3; O2SAT 94–98
[2017-06-19] MEDS: ENOXAPARIN 100 MG/1ML SYR SQ SCH ×2 (05:50→17:31)
[2017-06-19 06:16] LABS: HEMATOCRIT 35.8 % (42-52); MEAN CELL VOLUME 92.7 fL (80-100); MEAN CORPUSCULAR HEMOGLOBIN 31.1 pg (25-34); MEAN CORPUSCULAR HGB CONC 33.5 g/dl (32-36); MEAN PLATELET VOLUME 10.1 fL (7.4-10.4); PLATELET COUNT 127 K/uL (130-400); RED CELL DISTRIBUTION WIDTH CV 17.1 % (11.5-14.5); RED CELL DISTRIBUTION WIDTH SD 57.8 fL (36.4-46.3); WHITE BLOOD COUNT 12.35 K/uL (4.8-10.8)
[2017-06-19 06:29] LABS: INR 1.8 (0.9-1.1)
[2017-06-19 06:50] LABS: CALCIUM 8.2 mg/dl (8.5-10.1); CREATININE 1.88 mg/dl (0.60-1.40); POTASSIUM 4.1 mmol/L (3.5-5.1)
[2017-06-19] MEDS: PHENAZOPYRIDINE HCL 200 MG TAB PO PRN ×2 (07:22→13:28)
[2017-06-19] MEDS: DOCUSATE SODIUM/SENNA 50/8.6MG TAB PO SCH ×2 (07:23→20:31)
[2017-06-19] MEDS: DILTIAZEM SR 60 MG CAP PO SCH ×4 (07:23→20:33)
[2017-06-19] MEDS: ASPIRIN 81 MG ECTAB PO SCH (07:23)
[2017-06-19] MEDS: METOPROLOL TARTRATE 100 MG TAB PO SCH (07:24)
[2017-06-19] MEDS: MEMANTINE 10 MG TAB PO SCH ×2 (07:24→20:30)
[2017-06-19] MEDS: CEFTRIAXONE SOD INJ 1 GM in DEXTROSE 5% ADD-VANTAGE 50ML 50 ML IV SCH (08:57)
--- NOTE | 2017-06-19 09:08 | Clinical Documentation Query ---
CLINICAL DOCUMENTATION QUERY 71-y/o male who presents with Afib RVR after cystoscopy. During hospitalization patient's Creatinine has continued to rise from 1.05 to 1.88. In your clinical opinion is this patient being managed for: ( ) GO in setting of necessary diuretic therapy. ( ) Not Agree ( x ) Other explanation of clinical findings (Please Explain. If no explanation given, this would be considered a no response.) GO in setting of nausea and vomiting, rapid atrial fibrillation ( ) Unable to determine ( ) Need to Discuss (Please call CDS via extension or qliq. If no interaction occurs this is considered a no response.) The medical record reflects the following clinical findings, treatment, and risk factors. Clinical Indicators: As above. Creatinine 1.05->1.88, GFR 71.6->35.4 Treatment: daily PRP's, I/O's, nephrology consultation. Risk Factors: Diuretic therapy Please clarify and document your clinical opinion in the progress notes and discharge summary. Terms such as "probable", "suspected", "likely", "questionable", "possible", or "still to be ruled out" are acceptable. IF IN AGREEMENT, YOU MUST DOCUMENT ABOVE DIAGNOSTIC STATEMENT IN DAILY PROGRESS NOTES AND DISCHARGE SUMMARY. This document is not part of the patient's record. Thank You, Britton Shabazz RN [phone] & via qlicCONNECT
--- NOTE | 2017-06-19 09:23 | Cardiology Follow-Up ---
Subjective Date of Service: June 19, 2017. Pt evaluation today including: conversation w/ patient, physical exam, lab review, review of studies, review of inpatient medication list History of Present Illness This is a very pleasant 71-year-old gentleman who has a history of permanent atrial fibrillation for which he is on warfarin anticoagulation, long-standing coronary disease for which he has had stent placement in the LAD, hypertension, hyperlipidemia, diabetes mellitus and recurrent nephrolithiasis. In October 2016 he had a left ureteral stone for which he had a left ureteral stent placed , afterwards he had atrial fibrillation with a rapid ventricular response and in follow-up had a slow heart rate resulting in decrease in his diltiazem, he was also on digoxin as well as metoprolol. Currently his medication list only lists metoprolol for heart rate control. He is maintained on metoprolol 100 mg twice daily, which I understand he took this morning. Echocardiography on October 25, 2016 showed normal left ventricular size and function with mild mitral regurgitation. He had his urologic procedure June 14, 2017 which included a right ureteral stent, afterwards he was hypertensive and tachycardic, he then went into congestive heart failure although seemed to be oxygenating reasonably well. At the time of my evaluation some hours after his procedure in PACU he was breathing somewhat heavily but appeared comfortable, he denied pain and had only minimal complaints of shortness of breath. He denied chest discomfort. His heart rate was quite fast and his blood pressure was quite high therefore he was given intravenous metoprolol, however he was still fast but with his history of being slow on medications I did not want to give him a lot of long- acting medications therefore started him on intravenous diltiazem and continued his outpatient metoprolol. We then transitioned to oral medications, using shorter acting drugs during the day to avoid nocturnal bradycardia which he was having on [id number] medications. Today he is feeling well in general, he does not have any cardiovascular symptoms. No palpitations. Social History Smoking Status: Never Smoker History of Alcohol Use: No Review of Systems Respiratory: No shortness of breath Cardiac: No chest pain Medications Cardiovascular: Item Value Date Time Diltiazem HCl 60 mg 06/18/17 2100 (Cardizem Sr) BID/PO 06/19/17 0723 Diltiazem HCl 60 mg 06/18/17 1030 (Cardizem Sr) QAM/PO 06/19/17 0724 Warfarin Sodium 2 mg 06/17/17 1600 (Coumadin Tab) DAILY@16/PO 06/18/17 1533 Enoxaparin Sodium 90 mg 06/16/17 1800 (Lovenox Inj) Q12H/SQ 06/19/17 0550 Metoprolol 100 mg 06/16/17 0900 Tartrate QAM/PO 06/19/17 0724 (Lopressor Tab) Metoprolol 50 mg 06/15/17 2100 Tartrate QPM/PO 06/18/17 210 (Lopressor Tab) Atorvastatin 40 mg 06/14/17 2100 Calcium HS/PO 06/18/172104 (Lipitor Tab) Objective Vital Signs Past 12 Hours Date Time Temp Pulse Resp B/P (MAP) Pulse Ox O2 Delivery O2 Flow Rate FiO2 06/19/17 07:01 37.2 82 20 108/65 (79) 94 Room Air 06/19/17 04:00 95 CPAP 2.0 06/19/17 03:42 37.3 103 18 110/75 (87) 95 06/19/17 00:01 37.2 87 20 114/73 (87) 98 CPAP 2.0 06/19/17 00:01 96 CPAP 2.0 06/18/17 23:39 84 94 2.0 Last Recorded Weight-Kilograms: 85.300 Physical Exam Constitutional: Level of Distress: moderate distress Lungs: Respiratory effort: no dyspnea, good air movement Auscultation: breath sounds normal, no rales/crackles Cardiovascular: Heart Auscultation: no murmurs, no rubs, tachycardia, irregular rate rhythm Peripheral Pulses: Bruits: none appreciated Extremities: no edema Data Laboratory Results: Last 24 Hours Test 06/18/17 14:05 06/19/17 05:39 Urine Color RED Urine Appearance TURBID Urine pH Urine Specific [place] 1.004 Urine Protein POS Urine Glucose (UA) Urine Ketones Urine Occult Blood Urine Nitrite Urine Bilirubin Urine Urobilinogen Urine Leukocyte Esterase Urine RBC >30 /hpf Urine WBC >30 /hpf Urine Epithelial Cells 10-20 /lpf Urine Bacteria 1+ Urine Hyaline Casts 1-5 /lpf White Blood Count 12.35 K/uL Red Blood Count 3.86 M/uL Hemoglobin 12.0 g/dL Hematocrit 35.8 % Mean Corpuscular Volume 92.7 fL Mean Corpuscular Hemoglobin 31.1 pg Mean Corpuscular Hemoglobin Concent 33.5 g/dl RDW Standard Deviation 57.8 fL RDW Coefficient of Variation 17.1 % Platelet Count 127 K/uL Mean Platelet Volume 10.1 fL Prothrombin Time 18.9 SECONDS Prothromb Time International Ratio 1.8 Sodium Level 137 mmol/L Potassium Level 4.1 mmol/L Chloride Level 104 mmol/L Carbon Dioxide Level 27 mmol/L Anion Gap 6.0 mmol/L Blood Urea Nitrogen 37 mg/dl Creatinine 1.88 mg/dl Est Creatinine Clear Calc Drug Dose 39.6 ml/min Estimated GFR () 41.0 Estimated GFR (Non- 35.4 BUN/Creatinine Ratio 19.9 Random Glucose 97 mg/dl Calcium Level 8.2 mg/dl Magnesium Level 2.0 mg/dl Telemetry reviewed: Atrial fibrillation, heart rate better controlled over the last 24 hours. His best heart rate control appears to be in the afternoon, still high in the sewer connector hours. Assessment and Plan 1. CHF: Diastolic, at this point he seems euvolemic and his weight is stable. 2. AF: Chronic, but with rapid heart rate. As an outpatient his rate controlling medications were decreased due to bradycardia, however here on his outpatient medications his heart rate was very fast during the day but slow at night. He seems to have a tachybradycardia component in that he is rapid during the day and slow at night on [id number] medications. Sometimes pacemaker is required for this, currently however he does not have indication for this. I would like to try to continue to get by with medications, that will entail using relatively short acting medications which work during the day and taper off at night. On his current regimen his heart rate is still too fast at night. I am therefore going to increase his diltiazem to the same evening dose as the morning, however would like to keep his metoprolol on the current regimen. Hopefully we can get his rate under control. 3. CAD: No evidence of acute ischemic event, I would like to have his heart rate under better control however. Thank you for allowing me to participate in his care.
--- NOTE | 2017-06-19 10:11 | Nephrology Consultation ---
Nephrology Consultation Date & Providers Date of Consultation: June 19, 2017. Primary Care Provider: Cassius Decker M.D. Referring Provider: Reason for Consultation GO History of Present Illness Mr. Krishnan was seen at the request of Dr. Lopez for evaluation of GO. Medical records in the EMR were reviewed and are summarized as follows: Mr. Hoskins has atrial fibrillation on Warfarin therapy, ASCVD s/p [employer] w/ stent, HTN, hypercholesterolemia, AODM and recurrent nephrolithiasis. In 11/05 he suffered a L ureteral stone and required stent placement. This was complicated by atrial fibrillation w/ RVR managed w/ Diltiazem, Digoxin and Metoprolol. Patient subsequently became bradycardic and HR was controlled solely with Metoprolol therapy. Recently Mr. Krishnan was found to have bilateral kidney stones with one obstructing the R ureter. On 06/14/17 he underwent elective R ureteroscopy w/ laser lithotripsy and stent placement. Post-op he developed significant discomfort and tachycardia. HR was managed w/ IV Metoprolol. Echocardiogram revealed LVEF 50 - 55% w/ moderate pHTN. Crews catheter was removed 06/15 and urine cultures are pending. Due to persistent back discomfort a noncontrast abdominal CT was performed 06/17 whick was negative for retroperitoneal bleed or hydronephrosis. The R ureteral stent was in proper position and the patient was noted to have significant stool retention. He was treated w/ laxatives and today is subjectively improved. Mr. Krishnan' s baseline creatinine has been 0.9. He has no prior history of CKD, hematuria or proteinuria. His creatinine began to rise 06/15 following the removal of his Crews catheter and has peaked at Cr 1.8. Mr. Bolden reports that he is able to void easily on his own. Past Medical/Surgical History Medical: # Atrial fibrillation on Warfarin therapy # ASCVD s/p [employer] w/ stent # HTN # Hypercholesterolemia # AODM # Recurrent nephrolithiasis Surgical: # Cardiac stent # 11/05 L ureteroscopy w/ temporary stent due to recurrent kidney stones # 06/06 R ureteroscopy w/ temporary stent due to recurrent kidney stones Allergies Coded Allergies: Adhesives (Verified Allergy, Intermediate, BLISTERS, 06/14/17) Alcohol (Verified Allergy, Unknown, RUBBING ALCOHOL MADE SHORTNESS OF BREATH, 06/14/17) Escitalopram (Verified Allergy, Unknown, UNKNOWN, 06/14/17) Inpatient Medications Current Inpatient Medications Medications (Trade) Dose Ordered Sig/Mariaa Route Start Time Stop Time Status Last Admin Dose Admin Oxycodone/ Acetaminophen (Percocet 5-325mg Tab) 1 tab Q4H PRN PO 06/14/17 11:30 06/28/17 11:29 06/18/17 16:20 1 TAB Oxycodone/ Acetaminophen (Percocet 5-325mg Tab) 2 tab Q4H PRN PO 06/14/17 11:30 06/28/17 11:29 06/17/17 17:49 2 TAB Acetaminophen (Tylenol Tab) 650 mg Q4H PRN PO 06/14/17 14:15 07/14/17 14:14 06/16/17 20:35 650 MG Ondansetron HCl (Zofran Inj) 4 mg Q6H PRN IV 06/14/17 14:15 07/14/17 14:14 06/17/17 07:22 4 MG Polyethylene (Miralax Powder Packet) 17 gm DAILY PRN PO 06/14/17 14:15 07/14/17 14:14 06/18/17 12:18 17 GM Aspirin (Ecotrin Tab) 81 mg QAM PO 06/15/17 09:00 07/15/17 08:59 06/19/17 07:23 81 MG Atorvastatin Calcium (Lipitor Tab) 40 mg HS PO 06/14/17 21:00 07/14/17 20:59 06/18/17 21:05 40 MG Cholecalciferol (Vitamin D Tab) 1,000 inter.unit QPM PO 06/14/17 21:00 07/14/17 20:59 06/18/17 21:07 1,000 INTER.UNIT Lisinopril (Zestril Tab) 10 mg QAM PO 06/15/17 09:00 07/15/17 08:59 Future Hold 06/17/17 08:10 10 MG Memantine (Namenda Tab) 10 mg BID PO 06/14/17 21:00 07/14/17 20:59 06/19/17 07:24 10 MG Phenazopyridine HCl (Pyridium Tab) 200 mg TID PRN PO 06/14/17 14:15 07/14/17 14:14 06/19/17 07:22 200 MG Morphine Sulfate (MoRPHine SULFATE INJ) 2 mg Q4 PRN IV 06/14/17 14:45 06/28/17 14:44 06/17/17 09:45 2 MG Morphine Sulfate (MoRPHine SULFATE INJ) 4 mg Q4H PRN IV 06/14/17 14:45 06/28/17 14:44 06/14/17 23:27 4 MG Miscellaneous (Iv Fluids Completed) 1 ea PRN PRN N/A 06/14/17 15:15 06/14/18 15:14 Metoprolol Tartrate (Lopressor Tab) 100 mg QAM PO 06/16/17 09:00 07/16/17 08:59 06/19/17 07:24 100 MG Metoprolol Tartrate (Lopressor Tab) 50 mg QPM PO 06/15/17 21:00 07/15/17 20:59 06/18/17 21:06 50 MG Metoprolol Tartrate (Lopressor Iv) 5 mg Q4 PRN IV 06/15/17 17:45 07/15/17 17:44 06/18/17 05:54 5 MG Enoxaparin Sodium (Lovenox Inj) 90 mg Q12H SQ 06/16/17 18:00 07/16/17 17:59 Future hold 06/19/17 05:50 90 MG Sodium Chloride 1,000 ml @ 100 mls/hr Q10H IV 06/17/17 11:00 07/17/17 10:59 06/18/17 21:04 75 MLS/HR Miscellaneous (Soap Suds Enema) 1 ea DAILY PRN IN 06/17/17 13:45 07/17/17 13:44 06/17/17 22:27 1 EA Warfarin Sodium (Coumadin Tab) 2 mg DAILY@16 PO 06/17/17 16:00 07/17/17 15:59 06/18/17 15:33 2 MG Senna/Docusate Sodium (Senokot S Tab) 1 tab BID PO 06/18/17 21:00 07/18/17 20:59 06/19/17 07:23 1 TAB Ceftriaxone Sodium 1 gm/ Dextrose 50 ml @ 100 mls/hr Q24H IV 06/19/17 09:00 06/29/17 08:59 06/19/17 08:57 100 MLS/HR Diltiazem HCl (Cardizem Sr) 120 mg BID PO 06/19/17 21:00 07/19/17 20:59 UNV Family History No pertinent family history Negative for CKD / ESRD Social History Smoking Status: Never Smoker Alcohol Use: none Drug Use: none Marital Status: Housing Status: lives with family Occupation: retired . Retired from [employer]. Remote h/o tobacco use Review of Systems Constitutional: No fever Respiratory: No shortness of breath Cardiovascular: No chest pain, No palpitations Abdomen: No pain, No nausea, No vomiting Genitourinary - Male: No hematuria A complete review of systems was performed. Pertinent positives are noted above. All other systems are negative. Physical Exam Date Time Temp Pulse Resp B/P (MAP) Pulse Ox O2 Delivery O2 Flow Rate FiO2 06/19/17 08:00 Room Air 06/19/17 07:01 37.2 82 20 108/65 (79) 94 Room Air 06/19/17 04:00 95 CPAP 2.0 06/19/17 03:42 37.3 103 18 110/75 (87) 95 06/19/17 00:01 37.2 87 20 114/73 (87) 98 CPAP 2.0 06/19/17 00:01 96 CPAP 2.0 06/18/17 23:39 84 94 2.0 06/18/17 20:00 96 Room Air 06/18/17 19:03 36.9 71 18 106/54 (71) 96 Room Air 06/18/17 16:00 96 Room Air 06/18/17 15:21 36.7 79 18 96/64 (75) 96 Room Air 06/18/17 14:15 110 06/18/17 12:00 Room Air 06/18/17 11:33 37.4 102 18 92/60 (71) 94 Room Air General Appearance: no apparent distress Head: normocephalic, atraumatic Eyes: PERRL, EOMI Neck: no adenopathy Respiratory/Chest: lungs clear Cardiovascular: regular rate, rhythm Abdomen/GI: normal bowel sounds, non tender, soft Extremities/Musculoskelatal: no calf tenderness, no pedal edema Neurologic/Psych: alert, oriented x 3 Skin: warm/dry, no rash Laboratory Results Last 24 Hours Test 06/18/17 14:05 06/19/17 05:39 Urine Color RED Urine Appearance TURBID Urine pH Urine Specific [place] 1.004 Urine Protein POS Urine Glucose (UA) Urine Ketones Urine Occult Blood Urine Nitrite Urine Bilirubin Urine Urobilinogen Urine Leukocyte Esterase Urine RBC >30 /hpf Urine WBC >30 /hpf Urine Epithelial Cells 10-20 /lpf Urine Bacteria 1+ Urine Hyaline Casts 1-5 /lpf White Blood Count 12.35 K/uL Red Blood Count 3.86 M/uL Hemoglobin 12.0 g/dL Hematocrit 35.8 % Mean Corpuscular Volume 92.7 fL Mean Corpuscular Hemoglobin 31.1 pg Mean Corpuscular Hemoglobin Concent 33.5 g/dl RDW Standard Deviation 57.8 fL RDW Coefficient of Variation 17.1 % Platelet Count 127 K/uL Mean Platelet Volume 10.1 fL Prothrombin Time 18.9 SECONDS Prothromb Time International Ratio 1.8 Sodium Level 137 mmol/L Potassium Level 4.1 mmol/L Chloride Level 104 mmol/L Carbon Dioxide Level 27 mmol/L Anion Gap 6.0 mmol/L Blood Urea Nitrogen 37 mg/dl Creatinine 1.88 mg/dl Est Creatinine Clear Calc Drug Dose 39.6 ml/min Estimated GFR () 41.0 Estimated GFR (Non- 35.4 BUN/Creatinine Ratio 19.9 Random Glucose 97 mg/dl Calcium Level 8.2 mg/dl Magnesium Level 2.0 mg/dl Impression (1) Acute kidney injury (2) Atrial fibrillation with RVR (3) Hypertension (4) CAD (coronary artery disease) (5) R ureteroscopy Mr. Krishnan has recurrent kidney stones. He underwent elective R ureteroscopy w/ laser lithotripsy and stent placement. Post-op he developed atrial fibrillation w/ RVR and CHF in the setting of CASSIE inhibitor therapy. Heart rate is now controlled and patient is anticoagulated. Contrast negative abdominal CT was negative for retroperitoneal bleed or hydronephrosis. Urinalysis shows hematuria and pyuria c/w recent instrumentation. Hyaline casts are present c/w a low flow state. Urine culture is pending. Patient reports that he is voiding easily following the removal of his Crews catheter. Clinically suspect hemodynamic injury to the kidneys related to atrial fibrillation w/ RVR and CHF in the setting of CASSIE inhibitor therapy. Recommendations ACUTE KIDNEY INJURY: -- Hold CASSIE inhibitor therapy -- Abdominal CT report reviewed: No hydronephrosis -- Will check PVR -- Will order FeNa -- Hold IVF and encourage oral hydration (recent h/o CHF) -- Monitor serial PRP CV: -- Rate control as per Cardiology ID: -- Await urine culture results
[2017-06-19] MEDS: ACETAMINOPHEN 325 MG TAB PO PRN (11:28)
[2017-06-19] MEDS: SODIUM CHLORIDE 0.9% 1000ML 1,000 ML IV SCH (11:29)
[2017-06-19] MEDS: POLYETHYLENE (MIRALAX) 17 GM PACK PO PRN (13:28)
--- NOTE | 2017-06-19 14:19 | Progress Note ---
Subjective Date of Service: June 19, 2017. Subjective Pt evaluation today including: conversation w/ patient, chart review, lab review Voiding: no voiding problems Pt continues to c/o lower abdominal pain. concerned pain meds are causing increasing confusion. Continues to have hematuria. PVR of 99ml this afternoon. Denies n/v. Continues to have constipation despite small BM with enema and suppository yesterday. Repeat culture preliminarily negative. Problem List Medical Problems: (1) Calculus of distal right ureter Status: Acute (2) Cellulitis of right lower extremity Status: Acute (3) CVA (cerebral infarction) Status: Chronic (4) Dehydration Status: Acute (5) Diplopia Status: Acute (6) Double vision with both eyes open Status: Acute (7) Facial contusion Status: Acute (8) Fall Status: Acute (9) Hematuria Status: Acute (10) Hypertensive urgency Status: Acute (11) Left elbow contusion Status: Acute (12) Muscle cramping Status: Acute (13) Obstruction of right ureteropelvic junction due to stone Status: Acute (14) Renal colic Status: Acute (15) Renal insufficiency Status: Acute (16) Right wrist sprain Status: Acute Review of Systems Constitutional: No fever, No chills Respiratory: No shortness of breath Cardiac: No chest pain Abdomen: + see HPI, + pain, No nausea, No vomiting Male : + hematuria Heme: No abnormal bleeding/bruising Objective Vital Signs Date Time Temp Pulse Resp B/P (MAP) Pulse Ox O2 Delivery O2 Flow Rate FiO2 06/19/17 12:00 Room Air 06/19/17 08:00 Room Air 06/19/17 07:01 37.2 82 20 108/65 (79) 94 Room Air 06/19/17 04:00 95 CPAP 2.0 06/19/17 03:42 37.3 103 18 110/75 (87) 95 06/19/17 00:01 37.2 87 20 114/73 (87) 98 CPAP 2.0 06/19/17 00:01 96 CPAP 2.0 06/18/17 23:39 84 94 2.0 06/18/17 20:00 96 Room Air 06/18/17 19:03 36.9 71 18 106/54 (71) 96 Room Air 06/18/17 16:00 96 Room Air 06/18/17 15:21 36.7 79 18 96/64 (75) 96 Room Air 06/18/17 14:15 110 Physical Exam General Appearance: no apparent distress Eyes: normal inspection ENT: hearing grossly normal Neck: no JVD Respiratory/Chest: no respiratory distress, no accessory muscle use Cardiovascular: no JVD Extremities: normal inspection Neurologic/Psychiatric: alert, normal mood/affect, oriented x 3 Skin: normal color Laboratory Results Last 24 Hours Test 06/19/17 05:39 06/19/17 11:30 White Blood Count 12.35 K/uL Red Blood Count 3.86 M/uL Hemoglobin 12.0 g/dL Hematocrit 35.8 % Mean Corpuscular Volume 92.7 fL Mean Corpuscular Hemoglobin 31.1 pg Mean Corpuscular Hemoglobin Concent 33.5 g/dl RDW Standard Deviation 57.8 fL RDW Coefficient of Variation 17.1 % Platelet Count 127 K/uL Mean Platelet Volume 10.1 fL Prothrombin Time 18.9 SECONDS Prothromb Time International Ratio 1.8 Sodium Level 137 mmol/L Potassium Level 4.1 mmol/L Chloride Level 104 mmol/L Carbon Dioxide Level 27 mmol/L Anion Gap 6.0 mmol/L Blood Urea Nitrogen 37 mg/dl Creatinine 1.88 mg/dl Est Creatinine Clear Calc Drug Dose 39.6 ml/min Estimated GFR () 41.0 Estimated GFR (Non- 35.4 BUN/Creatinine Ratio 19.9 Random Glucose 97 mg/dl Calcium Level 8.2 mg/dl Magnesium Level 2.0 mg/dl Urine Random Creatinine 128.0 mg/dl Urine Random Sodium 49 mEq/L Assessment and Plan POD #5 S/P right ureteroscopy and stone extraction with stent placement AFVSS. Pt continues to experience bladder discomfort and constipation. Suspect his bladder discomfort his stent irritation, but constipation could be a large factor as well in his abdominal pain. Avoid narcotics and anticholinergics in the setting of constipation and confusion. Would recommend aggressive constipation management and possible B&O suppository if pain persists after constipation resolved. Continue supportive management with Pyridium. Will also add in Flomax. Monitor for orthostasis. Hematuria, dysuria, urgency, frequency, and even back discomfort can be common after stent placement. Plan for cysto stent removal 5-10 at 12:45pm with Dr. Ross. Consider stent removal while inpatient if pt continues to experience stent discomfort. Will check a KUB in the AM. Will continue to follow along with primary service.
[2017-06-19] MEDS ORDERED: BISACODYL 10 MG SUPP PR STA (14:44)
--- NOTE | 2017-06-19 14:54 | Hospitalist Progress Note ---
Hospitalist Progress Note Date of Service June 19, 2017. Subjective Pt evaluation today including: conversation w/ patient, conversation w/ [employer] consultant (Cardiology, Urology) Pt having intermittent RLQ abd pain, still no substantial BM, afebrile. Now with bradycardia and a 3.6 sec pause on tele at midday today. No CP, no SOB. Making urine and has hematuria, no clots, normal PVR. All Other Systems: Reviewed and Negative Objective Vital Signs Date Time Temp Pulse Resp B/P (MAP) Pulse Ox O2 Delivery O2 Flow Rate FiO2 06/19/17 12:00 Room Air 06/19/17 08:00 Room Air 06/19/17 07:01 37.2 82 20 108/65 (79) 94 Room Air 06/19/17 04:00 95 CPAP 2.0 06/19/17 03:42 37.3 103 18 110/75 (87) 95 06/19/17 00:01 37.2 87 20 114/73 (87) 98 CPAP 2.0 06/19/17 00:01 96 CPAP 2.0 06/18/17 23:39 84 94 2.0 06/18/17 20:00 96 Room Air 06/18/17 19:03 36.9 71 18 106/54 (71) 96 Room Air 06/18/17 16:00 96 Room Air 06/18/17 15:21 36.7 79 18 96/64 (75) 96 Room Air Physical Exam General Appearance: WD/WN, no apparent distress Eyes: normal inspection, sclerae normal ENT: hearing grossly normal Neck: trachea midline Respiratory/Chest: lungs clear, normal breath sounds, no respiratory distress, no accessory muscle use Cardiovascular: no murmur, + bradycardia, + irregularly irregular Abdomen: normal bowel sounds, soft, + tenderness (mild in RLQ without guarding or rebound) Extremities: non-tender, normal inspection, no pedal edema, no calf tenderness Neurologic/Psychiatric: alert, normal mood/affect Skin: normal color, warm/dry, no rash Laboratory Results Last 24 Hours Test 06/19/17 05:39 06/19/17 11:30 White Blood Count 12.35 K/uL Red Blood Count 3.86 M/uL Hemoglobin 12.0 g/dL Hematocrit 35.8 % Mean Corpuscular Volume 92.7 fL Mean Corpuscular Hemoglobin 31.1 pg Mean Corpuscular Hemoglobin Concent 33.5 g/dl RDW Standard Deviation 57.8 fL RDW Coefficient of Variation 17.1 % Platelet Count 127 K/uL Mean Platelet Volume 10.1 fL Prothrombin Time 18.9 SECONDS Prothromb Time International Ratio 1.8 Sodium Level 137 mmol/L Potassium Level 4.1 mmol/L Chloride Level 104 mmol/L Carbon Dioxide Level 27 mmol/L Anion Gap 6.0 mmol/L Blood Urea Nitrogen 37 mg/dl Creatinine 1.88 mg/dl Est Creatinine Clear Calc Drug Dose 39.6 ml/min Estimated GFR () 41.0 Estimated GFR (Non- 35.4 BUN/Creatinine Ratio 19.9 Random Glucose 97 mg/dl Calcium Level 8.2 mg/dl Magnesium Level 2.0 mg/dl Urine Random Creatinine 128.0 mg/dl Urine Random Sodium 49 mEq/L Assessment and Plan This pt is a 71-year-old male with a history of chronic afib on coumadin, HTN, hx MN with cardiac stents, 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 PT was found to be in afib afterwards and was admitted. S/p right ureteroscopy/ureteral stent placement/Hematuria- hgb stable to slightly lower, right flank pain and RLQ abd pain intermittent likely from spasm, N/V from previous is resolved, no urinary retention -continue Pain management with pyridium, spare use of oxycodone as caused delirium, add on Flomax today for spasm-Urol suggested BNO suppos if needed -add Bisacodyl suppos again today for continued constipation -Urology ordered CT abd/pel to reassess cause of acute pain on 06/17 and no issues urologically -plan for ureteral stent removal on 06/28 tentatively, but may get moved up to during this admission if has continued issues with pain and spasm -Crews dc'd and passed TOV, hematuria persists but able to pass urine -received Cipro as a prophylactic with procedure, since discontinued, but with WBC count rising and abnormal UA after low grade temp--> added on Rocephin on 06/19--> Ur cx now no growth but may be sterilized from previous Cipro? -dc Rocephin on 06/20 if WBC count trending back downward and remains afebrile -hold coumadin again now in case of stent removal, continue Lovenox for bridge A. fib with RVR /Chronic atrial fibrillation/Acute on chronic diastolic CHF- was continuing to be significantly tachycardic requiring intermittent IV lopressor and adding on po dilt--> now bradycardic with 3.6 pause and multiple shorter pauses No longer volume overloaded after IV diuresis, has lost 6 L net neg on fluid. Rising dismantler again today, euvolemic on exam -Cardiology to likely decrease metoprolol to 50mg bid and keep diltiazem at 120 bid -may end up needing a pacer if rates can't be controlled--> hold coumadin now just in case - continue Lovenox 90mg bid -follow PT/INR in AM as did received coumadin on -06/18 -dcd IV lasix, no need for po diuretics as per Cardiology -will dc IVFs today too as per Nephro recommendation despite rise in dismantler -follow BMP GO in setting of CKD stage III-possibly from ATN. Also received Lasix IV for a few days this admission, then had N/V for a day -Nephro consulted -recommended stopping iVFs to avoid volume overload, appears euvolemic today -CT abd/pel from recent shows no hydro -follow BMP -avoid nephrotoxins, renally dose meds -holding lisinopril Hypertension/CAD with history of MN status post cardiac stent/h/o CVA 2010-BPs stable - Continue Lopressor, diltiazem as per cards recs above. -continuing to hold lisinopril 10 mg daily in setting of rising dismantler -continue ASA 81 mg Dementia with some hospital delirium-could be from percocet use, rising dismantler, metabolic encephalopathy. Resolved delirium -Continue Namenda 10 mg bid -restart home exelon 3 mg QAM upon dc-not available here -avoid opioids if possible -treating constipation as below -treating for UTI -supportive care Leukocytosis/Low grade temp--> rising WBC count, UA abnormal but Ur cx no growth again. -continue Rocephin started 06/19 and consider continuing on it until stent possibly removed soon -follow CBC Constipation-seen on CT, on opioids and recent Urological procedure. Continues without a BM -continue Miralax -enemas and bisacodyl suppos as needed-give a suppos today -continue Docusate/senna bid BARBARA-on CPAP-stable -continue CPAP qhs DVT ppx: SCDs,Lovenox, coumadin to be held now CODE STATUS: FULL code Disposition: From home, lives with , dc to home when rates better controlled , PT/OT evals pending
[2017-06-19] MEDS: ATORVASTATIN 40 MG TAB PO SCH (20:30)
[2017-06-19] MEDS: METOPROLOL TARTRATE 50 MG TAB PO SCH ×2 (20:30→20:35)
[2017-06-19] MEDS: TAMSULOSIN HCL 0.4 MG CAP PO SCH (20:30)
[2017-06-19] MEDS: CHOLECALCIFEROL 1000 INTER.UNIT TAB PO SCH (20:31)
[2017-06-20] VITALS (11 sets, daily range): BP systolic 107–135; BP diastolic 61–89; PULSE 76–115; TEMP 36.3–37.3; O2SAT 90–99
[2017-06-20 05:35] LABS: HEMATOCRIT 34.2 % (42-52); HEMOGLOBIN 11.1 g/dL (14.0-18.0); MEAN CELL VOLUME 92.7 fL (80-100); MEAN CORPUSCULAR HEMOGLOBIN 30.1 pg (25-34); MEAN CORPUSCULAR HGB CONC 32.5 g/dl (32-36); MEAN PLATELET VOLUME 9.8 fL (7.4-10.4); PLATELET COUNT 126 K/uL (130-400); RED CELL DISTRIBUTION WIDTH SD 57.7 fL (36.4-46.3); WHITE BLOOD COUNT 9.63 K/uL (4.8-10.8)
[2017-06-20 05:44] LABS: INR 1.7 (0.9-1.1)
[2017-06-20] MEDS: ENOXAPARIN 100 MG/1ML SYR SQ SCH ×2 (05:50→22:06)
[2017-06-20 06:04] LABS: CALCIUM 8.6 mg/dl (8.5-10.1); CREATININE 1.63 mg/dl (0.60-1.40); POTASSIUM 4.4 mmol/L (3.5-5.1)
--- NOTE | 2017-06-20 08:42 | Cardiology Follow-Up ---
Subjective Date of Service: June 20, 2017. Pt evaluation today including: conversation w/ patient, physical exam, lab review History of Present Illness This is a very pleasant 71-year-old gentleman who has a history of permanent atrial fibrillation for which he is on warfarin anticoagulation, long-standing coronary disease for which he has had stent placement in the LAD, hypertension, hyperlipidemia, diabetes mellitus and recurrent nephrolithiasis. In October 2016 he had a left ureteral stone for which he had a left ureteral stent placed , afterwards he had atrial fibrillation with a rapid ventricular response and in follow-up had a slow heart rate resulting in decrease in his diltiazem, he was also on digoxin as well as metoprolol. Currently his medication list only lists metoprolol for heart rate control. He is maintained on metoprolol 100 mg twice daily, which I understand he took this morning. Echocardiography on October 25, 2016 showed normal left ventricular size and function with mild mitral regurgitation. He had his urologic procedure June 14, 2017 which included a right ureteral stent, afterwards he was hypertensive and tachycardic, he then went into congestive heart failure although seemed to be oxygenating reasonably well. At the time of my evaluation some hours after his procedure in PACU he was breathing somewhat heavily but appeared comfortable, he denied pain and had only minimal complaints of shortness of breath. He denied chest discomfort. His heart rate was quite fast and his blood pressure was quite high therefore he was given intravenous metoprolol, however he was still fast but with his history of being slow on medications I did not want to give him a lot of long- acting medications therefore started him on intravenous diltiazem and continued his outpatient metoprolol. We then transitioned to oral medications, using shorter acting drugs during the day to avoid nocturnal bradycardia which he was having on [id number] medications. It seems however that he is very sensitive to metoprolol and had daytime bradycardia with a higher dose of metoprolol in the morning than in the evening. We therefore switched him to a lower dose of metoprolol and a higher dose of diltiazem. He has no cardiovascular complaints today. Social History Smoking Status: Never Smoker History of Alcohol Use: No Review of Systems Respiratory: No shortness of breath Cardiac: No chest pain Medications Cardiovascular: Item Value Date Time Diltiazem HCl 120 mg 06/19/172099 (Cardizem Sr) BID/PO 06/19/172032 Metoprolol 50 mg 06/19/17 2100 Tartrate BID/PO 06/19/172034 (Lopressor Tab) Enoxaparin Sodium 90 mg 06/16/17 1800 (Lovenox Inj) Q12H/SQ 06/20/17 0550 Atorvastatin 40 mg 06/14/17 2100 Calcium HS/PO 06/19/17 2030 (Lipitor Tab) Objective Vital Signs Past 12 Hours Date Time Temp Pulse Resp B/P (MAP) Pulse Ox O2 Delivery O2 Flow Rate FiO2 06/20/17 07:46 36.7 93 16 118/76 (90) 94 Room Air 06/20/17 04:00 99 BiPAP 06/20/17 04:00 36.7 94 20 123/74 (90) 99 Room Air 06/20/17 01:00 98 BiPAP 06/20/17 01:00 37.2 90 127/74 (91) 98 BiPAP 06/20/17 00:00 37.2 90 127/74 (91) 98 BiPAP 06/20/17 00:00 98 BiPAP 06/19/17 23:11 118 95 2.0 06/19/17 21:38 86 135/74 (94) 85 138/81 (100) 46 113/80 (91) Last Recorded Weight-Kilograms: 90.000 Physical Exam Constitutional: Level of Distress: moderate distress Lungs: Respiratory effort: no dyspnea, good air movement Auscultation: breath sounds normal, no rales/crackles Cardiovascular: Heart Auscultation: no murmurs, no rubs, tachycardia, irregular rate rhythm Peripheral Pulses: Bruits: none appreciated Extremities: no edema Data Laboratory Results: Last 24 Hours Test 06/19/17 11:30 06/20/17 05:17 Urine Random Creatinine 128.0 mg/dl Urine Random Sodium 49 mEq/L White Blood Count 9.63 K/uL Red Blood Count 3.69 M/uL Hemoglobin 11.1 g/dL Hematocrit 34.2 % Mean Corpuscular Volume 92.7 fL Mean Corpuscular Hemoglobin 30.1 pg Mean Corpuscular Hemoglobin Concent 32.5 g/dl RDW Standard Deviation 57.7 fL RDW Coefficient of Variation 17.0 % Platelet Count 126 K/uL Mean Platelet Volume 9.8 fL Prothrombin Time 17.4 SECONDS Prothromb Time International Ratio 1.7 Sodium Level 135 mmol/L Potassium Level 4.4 mmol/L Chloride Level 105 mmol/L Carbon Dioxide Level 27 mmol/L Anion Gap 3.0 mmol/L Blood Urea Nitrogen 32 mg/dl Creatinine 1.63 mg/dl Est Creatinine Clear Calc Drug Dose 45.7 ml/min Estimated GFR () 48.7 Estimated GFR (Non- 42.1 BUN/Creatinine Ratio 19.5 Random Glucose 102 mg/dl Calcium Level 8.6 mg/dl Magnesium Level 2.2 mg/dl Telemetry reviewed: 1 atrial fibrillation, very well-controlled heart rate since last evening. Assessment and Plan 1. CHF: Diastolic, at this point he seems euvolemic and his weight is stable. 2. AF: Chronic, but with rapid heart rate. On his current regimen he appears to have a well-controlled heart rate. He seems to be very sensitive to beta- blockade, therefore I would not use a dose higher than his current dose. A combination of his current dose of metoprolol and diltiazem so far appears to forward very good heart rate control. For his atrial fibrillation I would continue his anticoagulation. 3. CAD: No evidence of acute ischemic event, I would like to have his heart rate under better control however. Thank you for allowing me to participate in his care.
--- NOTE | 2017-06-20 08:44 | DIAGNOSTIC IMAGING REPORT ---
KUB CLINICAL HISTORY: s/p stent, stones COMPARISON STUDY: CT of the abdomen and pelvis June 17, 2017. FINDINGS: A right ureteral stent remains in place. Bilateral renal calculi are noted, including a 7 mm calculus within the left renal pelvis, a 1.1 cm calculus within the lower pole of the left kidney and a probable fragmented calculus within the lower pole of the right kidney. No definite right ureteral calculi/fragments are noted. There are faint densities along the proximal aspect of the right ureteral stent which could reflect small fragments. IMPRESSION: 1. Right ureteral stent in place. Faint densities along the proximal aspect of the stent are probably artifactual although small proximal ureteral fragments could appear similar. No distal right ureteral calculi/fragments. 2. Bilateral nephrolithiasis. Electronically signed by: Tahir Sullivan M.D. 06/20/2017 8:43 AM Dictated Date/Time: 06/20/2017 8:36 AM
[2017-06-20] MEDS: ASPIRIN 81 MG ECTAB PO SCH (09:13)
[2017-06-20] MEDS: METOPROLOL TARTRATE 50 MG TAB PO SCH ×2 (09:13→22:03)
[2017-06-20] MEDS: MEMANTINE 10 MG TAB PO SCH ×2 (09:13→22:04)
[2017-06-20] MEDS: DILTIAZEM SR 60 MG CAP PO SCH ×2 (09:17→22:05)
--- NOTE | 2017-06-20 09:17 | Nephrology Progress Note ---
Nephrology Progress Note Date of Service June 20, 2017. Chief Complaint GO Subjective Mr. Krishnan was seen & examined in the PCU this morning. He denies fever or flank pain. He has bilateral kidney stones and a R ureteral stent. He c/o grossly bloody urine. PVR was 90 cc. FeNa was 0.5%. Review of Systems Constitutional: No fever Cardiovascular: No chest pain Respiratory: No dyspnea at rest Abdomen: No pain, No nausea, No vomiting Genitourinary - Male: + gross hematuria Extremities: No leg edema A complete review of systems was performed. Pertinent positives are noted above. All other systems are negative. Vital Signs Last 8 Hrs Date Time Temp Pulse Resp B/P (MAP) Pulse Ox O2 Delivery O2 Flow Rate FiO2 06/20/17 07:46 36.7 93 16 118/76 (90) 94 Room Air 06/20/17 04:00 99 BiPAP 06/20/17 04:00 36.7 94 20 123/74 (90) 99 Room Air Last Recorded Weight Weight (Kilograms): 90.000 Physical Exam General Appearance: no apparent distress Head: normocephalic, atraumatic Eyes: PERRL Neck: supple Respiratory/Chest: lungs clear Cardiovascular: regular rate, rhythm Abdomen/GI: normal bowel sounds, non tender, soft Extremities/Musculoskelatal: no calf tenderness, no pedal edema Neurologic/Psych: alert, oriented x 3 Family History No pertinent family history Negative for CKD / ESRD Social History Smoking Status: Former smoker Alcohol Use: none Drug Use: none Marital Status: Housing Status: lives with family Occupation: retired . Retired from [employer]. Remote h/o tobacco use Laboratory Results Past 24 Hours 06/20/17 05:17 06/20/17 05:17 Test 06/19/17 11:30 06/20/17 05:17 Urine Random Creatinine 128.0 mg/dl Urine Random Sodium 49 mEq/L Red Blood Count 3.69 M/uL (4.7-6.1) Mean Corpuscular Volume 92.7 fL (80-100) Mean Corpuscular Hemoglobin 30.1 pg (25-34) Mean Corpuscular Hemoglobin Concent 32.5 g/dl (32-36) RDW Standard Deviation 57.7 fL (36.4-46.3) RDW Coefficient of Variation 17.0 % (11.5-14.5) Mean Platelet Volume 9.8 fL (7.4-10.4) Prothrombin Time 17.4 SECONDS (9.0-12.0) Prothromb Time International Ratio 1.7 (0.9-1.1) Anion Gap 3.0 mmol/L (3-11) Est Creatinine Clear Calc Drug Dose 45.7 ml/min Estimated GFR () 48.7 Estimated GFR (Non- 42.1 BUN/Creatinine Ratio 19.5 (10-20) Calcium Level 8.6 mg/dl (8.5-10.1) Magnesium Level 2.2 mg/dl (1.8-2.4) Allergies Coded Allergies: Adhesives (Verified Allergy, Intermediate, BLISTERS, 06/14/17) Alcohol (Verified Allergy, Unknown, RUBBING ALCOHOL MADE SHORTNESS OF BREATH, 06/14/17) Escitalopram (Verified Allergy, Unknown, UNKNOWN, 06/14/17) Medications Current Inpatient Medications Medications (Trade) Dose Ordered Sig/Mariaa Route Start Time Stop Time Status Last Admin Dose Admin Oxycodone/ Acetaminophen (Percocet 5-325mg Tab) 1 tab Q4H PRN PO 06/14/17 11:30 06/28/17 11:29 06/18/17 16:20 1 TAB Acetaminophen (Tylenol Tab) 650 mg Q4H PRN PO 06/14/17 14:15 07/14/17 14:14 06/19/17 11:28 650 MG Ondansetron HCl (Zofran Inj) 4 mg Q6H PRN IV 06/14/17 14:15 07/14/17 14:14 06/17/17 07:22 4 MG Aspirin (Ecotrin Tab) 81 mg QAM PO 06/15/17 09:00 07/15/17 08:59 06/19/17 07:23 81 MG Atorvastatin Calcium (Lipitor Tab) 40 mg HS PO 06/14/17 21:00 07/14/17 20:59 06/19/17 20:30 40 MG Cholecalciferol (Vitamin D Tab) 1,000 inter.unit QPM PO 06/14/17 21:00 07/14/17 20:59 06/19/17 20:31 1,000 INTER.UNIT Lisinopril (Zestril Tab) 10 mg QAM PO 06/15/17 09:00 07/15/17 08:59 Future Hold 06/17/17 08:10 10 MG Memantine (Namenda Tab) 10 mg BID PO 06/14/17 21:00 07/14/17 20:59 06/19/17 20:30 10 MG Phenazopyridine HCl (Pyridium Tab) 200 mg TID PRN PO 06/14/17 14:15 07/14/17 14:14 06/19/17 13:28 200 MG Morphine Sulfate (MoRPHine SULFATE INJ) 2 mg Q4 PRN IV 06/14/17 14:45 06/28/17 14:44 06/17/17 09:45 2 MG Morphine Sulfate (MoRPHine SULFATE INJ) 4 mg Q4H PRN IV 06/14/17 14:45 06/28/17 14:44 06/14/17 23:27 4 MG Miscellaneous (Iv Fluids Completed) 1 ea PRN PRN N/A 06/14/17 15:15 06/14/18 15:14 Metoprolol Tartrate (Lopressor Iv) 5 mg Q4 PRN IV 06/15/17 17:45 07/15/17 17:44 06/18/17 05:54 5 MG Enoxaparin Sodium (Lovenox Inj) 90 mg Q12H SQ 06/16/17 18:00 07/16/17 17:59 Future hold 06/20/17 05:50 90 MG Miscellaneous (Soap Suds Enema) 1 ea DAILY PRN MN 06/17/17 13:45 07/17/17 13:44 06/17/17 22:27 1 EA Senna/Docusate Sodium (Senokot S Tab) 1 tab BID PO 06/18/17 21:00 07/18/17 20:59 06/19/17 20:31 1 TAB Ceftriaxone Sodium 1 gm/ Dextrose 50 ml @ 100 mls/hr Q24H IV 06/19/17 09:00 06/29/17 08:59 06/19/17 08:57 100 MLS/HR Diltiazem HCl (Cardizem Sr) 120 mg BID PO 06/19/17 21:00 07/19/17 20:59 06/19/17 20:33 120 MG Tamsulosin HCl (Flomax Cap) 0.4 mg HS PO 06/19/17 21:00 07/19/17 20:59 06/19/17 20:30 0.4 MG Metoprolol Tartrate (Lopressor Tab) 50 mg BID PO 06/19/17 21:00 07/19/17 20:59 06/19/17 20:35 50 MG Polyethylene (Miralax Powder Packet) 17 gm BID PO 06/20/17 09:00 07/14/17 14:14 Impression (1) Acute kidney injury (2) Atrial fibrillation with RVR (3) Hypertension (4) CAD (coronary artery disease) (5) R ureteroscopy Mr. Krishnan has recurrent kidney stones. He underwent elective R ureteroscopy w/ laser lithotripsy and stent placement. Post-op he developed atrial fibrillation w/ RVR and CHF in the setting of CASSIE inhibitor therapy. Heart rate is now controlled and patient is anticoagulated. Contrast negative abdominal CT was negative for retroperitoneal bleed or hydronephrosis. Urinalysis shows hematuria and pyuria c/w recent instrumentation. Hyaline casts are present c/w a low flow state. Urine culture is pending. Patient reports that he is voiding easily following the removal of his Crews catheter. PVR was 90 cc. Clinically suspect hemodynamic injury to the kidneys related to atrial fibrillation w/ RVR and CHF in the setting of CASSIE inhibitor therapy. Recommendations ACUTE KIDNEY INJURY: -- Hold CASSIE inhibitor therapy -- Abdominal CT report reviewed: No hydronephrosis -- PVR was only 90 cc -- FeNa was 0.5% -- Kidney function is mildly improved this am. Continue to monitor daily PRP KIDNEY STONES: -- Await formal stone analysis -- Patient now with gross hematuria. Suspect this is related to ureteral stent or kidney stones. Will provide 1 L 0.9 NS to improve UO and repeat urine culture. Await further Urology input CV: -- Rate control as per Cardiology ID: -- 05/29 & 06/18 urine cultures were [id number]
[2017-06-20] MEDS: CEFTRIAXONE SOD INJ 1 GM in DEXTROSE 5% ADD-VANTAGE 50ML 50 ML IV SCH (09:18)
[2017-06-20] MEDS ORDERED: SODIUM CHLORIDE 0.9% 1000ML 1,000 ML IV SCH (09:45)
--- NOTE | 2017-06-20 20:24 | Progress Note ---
Subjective Date of Service: June 20, 2017. Subjective Pt evaluation today including: conversation w/ patient, conversation w/ family ( by phone), physical exam, chart review, lab review, review of studies ( [facility] x-ray), review of inpatient medication list Pain: denies PO Intake: good Voiding: no voiding problems tele - improving control with adjustments in a. fib meds he denies any specific complaints during my visit mildly confused Problem List Medical Problems: (1) Calculus of distal right ureter Status: Acute (2) Cellulitis of right lower extremity Status: Acute (3) CVA (cerebral infarction) Status: Chronic (4) Dehydration Status: Acute (5) Diplopia Status: Acute (6) Double vision with both eyes open Status: Acute (7) Facial contusion Status: Acute (8) Fall Status: Acute (9) Hematuria Status: Acute (10) Hypertensive urgency Status: Acute (11) Left elbow contusion Status: Acute (12) Muscle cramping Status: Acute (13) Obstruction of right ureteropelvic junction due to stone Status: Acute (14) Renal colic Status: Acute (15) Renal insufficiency Status: Acute (16) Right wrist sprain Status: Acute Review of Systems Respiratory: + dyspnea on exertion, No shortness of breath Cardiac: No chest pain Abdomen: + constipation, No pain Objective Vital Signs Date Time Temp Pulse Resp B/P (MAP) Pulse Ox O2 Delivery O2 Flow Rate FiO2 06/20/17 16:00 96 Room Air 06/20/17 15:05 37.0 79 17 107/61 (76) 96 Room Air 06/20/17 14:43 84 96 06/20/17 12:05 36.3 76 16 127/82 (97) 95 06/20/17 12:00 Room Air 06/20/17 08:00 Room Air 06/20/17 07:46 36.7 93 16 118/76 (90) 94 Room Air 06/20/17 04:00 99 BiPAP 06/20/17 04:00 36.7 94 20 123/74 (90) 99 Room Air 06/20/17 01:00 98 BiPAP 06/20/17 01:00 37.2 90 127/74 (91) 98 BiPAP 06/20/17 00:00 37.2 90 127/74 (91) 98 BiPAP 5/2/18 00:00 98 BiPAP 06/19/17 23:11 118 95 2.0 06/19/17 21:38 86 135/74 (94) 85 138/81 (100) 46 113/80 (91) Physical Exam General Appearance: no apparent distress ENT: pharynx normal Neck: no JVD Respiratory/Chest: lungs clear, no respiratory distress, no accessory muscle use Cardiovascular: no gallop, no murmur, + irregularly irregular Abdomen: normal bowel sounds, non tender, soft, no organomegaly, + distended ( mild) Extremities: no pedal edema Neurologic/Psychiatric: alert, + disoriented Laboratory Results Last 24 Hours Test 06/20/17 05:17 White Blood Count 9.63 K/uL Red Blood Count 3.69 M/uL Hemoglobin 11.1 g/dL Hematocrit 34.2 % Mean Corpuscular Volume 92.7 fL Mean Corpuscular Hemoglobin 30.1 pg Mean Corpuscular Hemoglobin Concent 32.5 g/dl RDW Standard Deviation 57.7 fL RDW Coefficient of Variation 17.0 % Platelet Count 126 K/uL Mean Platelet Volume 9.8 fL Prothrombin Time 17.4 SECONDS Prothromb Time International Ratio 1.7 Sodium Level 135 mmol/L Potassium Level 4.4 mmol/L Chloride Level 105 mmol/L Carbon Dioxide Level 27 mmol/L Anion Gap 3.0 mmol/L Blood Urea Nitrogen 32 mg/dl Creatinine 1.63 mg/dl Est Creatinine Clear Calc Drug Dose 45.7 ml/min Estimated GFR () 48.7 Estimated GFR (Non- 42.1 BUN/Creatinine Ratio 19.5 Random Glucose 102 mg/dl Calcium Level 8.6 mg/dl Magnesium Level 2.2 mg/dl Assessment and Plan 71yo male with: 1. atrial fibrillation with RVR - improving with BB and CCB adjustments made by Dr. Lim. Remains on lovenox 1mg/kg BID; warfarin on hold for now pending stent removal by urology. If stent will remain for some time then consider resuming warfarin. 2. acute/chronic diastolic CHF - appears compensated; lasix d/c. 3. acute kidney injury - possibly due to over-diuresis; possibly ATN in setting of recent stent placement. nephrology following. They elected to give additional fluid today. repeat BMP in am. holding CASSIE. 4. CKD stage 3 - noted. 5. CAD with prior h/o stents - noted - cont asa, BB, statin. No ischemic symptoms at this time. 6. POD #6 S/P right ureteroscopy and stone extraction with stent placement - management per urology. Stent retrieval planned for 06/28/17, unless it is felt it would be more prudent to do so while hospitalized. 7. h/o stroke 2010 - cont asa, lovenox for secondary prevention. 8. dementia - with superimposed hospital psychosis - improved. d/c narcotics. cont namenda. 9. ?UTI - urine culture negative; d/c antibiotics. 10. constipation - continue bowel regimen - improved. 11. BARBARA - CPAP at HS. 12. DVT proph - lovenox 1mg/kg bid. updated 06/20/17 home with home PT, OT when ok with nephrology, urology, cardiology Continued [facility] stay due to: multiple IV medications needed Discharge planning: home with home health
[2017-06-20] MEDS: DOCUSATE SODIUM/SENNA 50/8.6MG TAB PO SCH ×2 (21:00→22:01)
[2017-06-20] MEDS: POLYETHYLENE (MIRALAX) 17 GM PACK PO SCH ×2 (21:00→22:08)
[2017-06-20] MEDS: ATORVASTATIN 40 MG TAB PO SCH (22:03)
[2017-06-20] MEDS: CHOLECALCIFEROL 1000 INTER.UNIT TAB PO SCH (22:04)
[2017-06-20] MEDS: TAMSULOSIN HCL 0.4 MG CAP PO SCH (22:05)
[2017-06-21 03:22] VITALS: BP 120/81; PULSE 82; TEMP 37; O2SAT 97
[2017-06-21] MEDS: ENOXAPARIN 100 MG/1ML SYR SQ SCH (05:48)
[2017-06-21 06:05] LABS: HEMATOCRIT 32.8 % (42-52); HEMOGLOBIN 10.7 g/dL (14.0-18.0); MEAN CELL VOLUME 93.4 fL (80-100); MEAN CORPUSCULAR HEMOGLOBIN 30.5 pg (25-34); MEAN CORPUSCULAR HGB CONC 32.6 g/dl (32-36); MEAN PLATELET VOLUME 9.9 fL (7.4-10.4); PLATELET COUNT 140 K/uL (130-400); RED CELL DISTRIBUTION WIDTH CV 16.9 % (11.5-14.5); RED CELL DISTRIBUTION WIDTH SD 57.6 fL (36.4-46.3); WHITE BLOOD COUNT 7.27 K/uL (4.8-10.8)
[2017-06-21 06:22] LABS: INR 1.5 (0.9-1.1)
[2017-06-21 06:40] LABS: CALCIUM 8.4 mg/dl (8.5-10.1); CREATININE 1.38 mg/dl (0.60-1.40); POTASSIUM 4.2 mmol/L (3.5-5.1)
[2017-06-21] MEDS: ASPIRIN 81 MG ECTAB PO SCH (07:55)
[2017-06-21] MEDS: METOPROLOL TARTRATE 50 MG TAB PO SCH (07:55)
[2017-06-21] MEDS: DILTIAZEM SR 60 MG CAP PO SCH (07:55)
[2017-06-21] MEDS: MEMANTINE 10 MG TAB PO SCH (07:55)
[2017-06-21] MEDS: DOCUSATE SODIUM/SENNA 50/8.6MG TAB PO SCH (07:56)
[2017-06-21] MEDS: POLYETHYLENE (MIRALAX) 17 GM PACK PO SCH (07:56)
[2017-06-21 08:09] VITALS: BP 121/74; PULSE 88; TEMP 36.8; O2SAT 100
--- NOTE | 2017-06-21 09:22 | Nephrology Progress Note ---
Nephrology Progress Note Date of Service June 21, 2017. Chief Complaint GO Subjective Mr. Krishnan was seen & examined in the PCU this morning. He currently denies palpitations, angina, dyspnea or fever. He continues to have grossly bloody urine. Review of Systems Constitutional: No fever Cardiovascular: No angina Respiratory: No dyspnea at rest Abdomen: No pain, No nausea, No vomiting Extremities: No leg edema A complete review of systems was performed. Pertinent positives are noted above. All other systems are negative. Vital Signs Last 8 Hrs Date Time Temp Pulse Resp B/P (MAP) Pulse Ox O2 Delivery O2 Flow Rate FiO2 06/21/17 08:09 36.8 88 22 121/74 (90) 100 BiPAP 06/21/17 04:00 Room Air 06/21/17 03:22 37.0 82 18 120/81 (94) 97 CPAP 82 Last Recorded Weight Weight (Kilograms): 89.000 Physical Exam General Appearance: no apparent distress Head: normocephalic, atraumatic Eyes: PERRL, EOMI Neck: no adenopathy Respiratory/Chest: lungs clear, no respiratory distress Cardiovascular: regular rate, rhythm Abdomen/GI: normal bowel sounds, non tender, soft Extremities/Musculoskelatal: no calf tenderness, no pedal edema Neurologic/Psych: alert, oriented x 3 Family History No pertinent family history Negative for CKD / ESRD Social History Smoking Status: Former smoker Alcohol Use: none Drug Use: none Marital Status: Housing Status: lives with family Occupation: retired . Retired from [employer]. Remote h/o tobacco use Laboratory Results Past 24 Hours 06/21/17 05:45 06/21/17 05:45 Test 06/20/17 21:52 06/21/17 05:45 Heparin Anti-Xa Act, Low Molec Wt 0.79 IU/ML (0 - <0.10) Red Blood Count 3.51 M/uL (4.7-6.1) Mean Corpuscular Volume 93.4 fL (80-100) Mean Corpuscular Hemoglobin 30.5 pg (25-34) Mean Corpuscular Hemoglobin Concent 32.6 g/dl (32-36) RDW Standard Deviation 57.6 fL (36.4-46.3) RDW Coefficient of Variation 16.9 % (11.5-14.5) Mean Platelet Volume 9.9 fL (7.4-10.4) Prothrombin Time 15.9 SECONDS (9.0-12.0) Prothromb Time International Ratio 1.5 (0.9-1.1) Anion Gap 5.0 mmol/L (3-11) Est Creatinine Clear Calc Drug Dose 55.3 ml/min Estimated GFR () 59.6 Estimated GFR (Non- 51.4 BUN/Creatinine Ratio 17.2 (10-20) Calcium Level 8.4 mg/dl (8.5-10.1) Allergies Coded Allergies: Adhesives (Verified Allergy, Intermediate, BLISTERS, 06/14/17) Alcohol (Verified Allergy, Unknown, RUBBING ALCOHOL MADE SHORTNESS OF BREATH, 06/14/17) Escitalopram (Verified Allergy, Unknown, UNKNOWN, 06/14/17) Medications Current Inpatient Medications Medications (Trade) Dose Ordered Sig/Mariaa Route Start Time Stop Time Status Last Admin Dose Admin Acetaminophen (Tylenol Tab) 650 mg Q4H PRN PO 06/14/17 14:15 07/14/17 14:14 06/19/17 11:28 650 MG Ondansetron HCl (Zofran Inj) 4 mg Q6H PRN IV 06/14/17 14:15 07/14/17 14:14 06/17/17 07:22 4 MG Aspirin (Ecotrin Tab) 81 mg QAM PO 06/15/17 09:00 07/15/17 08:59 06/21/17 07:55 81 MG Atorvastatin Calcium (Lipitor Tab) 40 mg HS PO 06/14/17 21:00 07/14/17 20:59 06/20/17 22:03 40 MG Cholecalciferol (Vitamin D Tab) 1,000 inter.unit QPM PO 06/14/17 21:00 07/14/17 20:59 06/20/17 22:04 1,000 INTER.UNIT Lisinopril (Zestril Tab) 10 mg QAM PO 06/15/17 09:00 07/15/17 08:59 Future Hold 06/17/17 08:10 10 MG Memantine (Namenda Tab) 10 mg BID PO 06/14/17 21:00 07/14/17 20:59 06/21/17 07:55 10 MG Phenazopyridine HCl (Pyridium Tab) 200 mg TID PRN PO 06/14/17 14:15 07/14/17 14:14 06/19/17 13:28 200 MG Miscellaneous (Iv Fluids Completed) 1 ea PRN PRN N/A 06/14/17 15:15 06/14/18 15:14 Metoprolol Tartrate (Lopressor Iv) 5 mg Q4 PRN IV 06/15/17 17:45 07/15/17 17:44 06/18/17 05:54 5 MG Enoxaparin Sodium (Lovenox Inj) 90 mg Q12H SQ 06/16/17 18:00 07/16/17 17:59 Future hold 06/21/17 05:48 90 MG Miscellaneous (Soap Suds Enema) 1 ea DAILY PRN WA 06/17/17 13:45 07/17/17 13:44 06/17/17 22:27 1 EA Senna/Docusate Sodium (Senokot S Tab) 1 tab BID PO 06/18/17 21:00 07/18/17 20:59 06/21/17 07:56 1 TAB Diltiazem HCl (Cardizem Sr) 120 mg BID PO 06/19/17 21:00 07/19/17 20:59 06/21/17 07:55 120 MG Tamsulosin HCl (Flomax Cap) 0.4 mg HS PO 06/19/17 21:00 07/19/17 20:59 06/20/17 22:05 0.4 MG Metoprolol Tartrate (Lopressor Tab) 50 mg BID PO 06/19/17 21:00 07/19/17 20:59 06/21/17 07:55 50 MG Polyethylene (Miralax Powder Packet) 17 gm BID PO 06/20/17 09:00 07/14/17 14:14 06/21/17 07:56 17 GM Impression (1) Acute kidney injury (2) Atrial fibrillation with RVR (3) Hypertension (4) CAD (coronary artery disease) (5) R ureteroscopy Mr. Krishnan has recurrent kidney stones. He underwent elective R ureteroscopy w/ laser lithotripsy and stent placement. Post-op he developed atrial fibrillation w/ RVR and CHF in the setting of CASSIE inhibitor therapy. Heart rate is now controlled and patient is anticoagulated. Contrast negative abdominal CT was negative for retroperitoneal bleed or hydronephrosis. Urinalysis shows hematuria and pyuria c/w recent instrumentation. Hyaline casts are present c/w a low flow state. Urine culture is pending. Patient reports that he is voiding easily following the removal of his Crews catheter. PVR was 90 cc. Clinically suspect hemodynamic injury to the kidneys related to atrial fibrillation w/ RVR and CHF in the setting of CASSIE inhibitor therapy. Recommendations ACUTE KIDNEY INJURY: -- Resolved. Creatinine is back to baseline -- No further Nephrology evaluation is indicated at this time. Will sign off. Please call if further assistance is needed. HYPERTENSION: -- Blood pressure remains controlled. No compelling reason to resume CASSIE inhibitor therapy at this time KIDNEY STONES: -- CaOx stones. Patient wishes to pursue metabolic kidney stone evaluation following discharge from the hospital -- Patient has persistent gross hematuria. Initial urine cultures are negative. I have placed a call to Urology and asked them to reassess patient. Suspect hematuria is due to irritation associated w/ ureteral stent
--- NOTE | 2017-06-21 09:44 | Cardiology Follow-Up ---
Subjective Date of Service: June 21, 2017. Pt evaluation today including: conversation w/ patient, physical exam, lab review, review of studies, review of inpatient medication list History of Present Illness This is a very pleasant 71-year-old gentleman who has a history of permanent atrial fibrillation for which he is on warfarin anticoagulation, long-standing coronary disease for which he has had stent placement in the LAD, hypertension, hyperlipidemia, diabetes mellitus and recurrent nephrolithiasis. In October 2016 he had a left ureteral stone for which he had a left ureteral stent placed , afterwards he had atrial fibrillation with a rapid ventricular response and in follow-up had a slow heart rate resulting in decrease in his diltiazem, he was also on digoxin as well as metoprolol. Currently his medication list only lists metoprolol for heart rate control. He is maintained on metoprolol 100 mg twice daily, which I understand he took this morning. Echocardiography on October 25, 2016 showed normal left ventricular size and function with mild mitral regurgitation. He had his urologic procedure June 14, 2017 which included a right ureteral stent, afterwards he was hypertensive and tachycardic, he then went into congestive heart failure although seemed to be oxygenating reasonably well. At the time of my evaluation some hours after his procedure in PACU he was breathing somewhat heavily but appeared comfortable, he denied pain and had only minimal complaints of shortness of breath. He denied chest discomfort. His heart rate was quite fast and his blood pressure was quite high therefore he was given intravenous metoprolol, however he was still fast but with his history of being slow on medications I did not want to give him a lot of long- acting medications therefore started him on intravenous diltiazem and continued his outpatient metoprolol. We then transitioned to oral medications, using shorter acting drugs during the day to avoid nocturnal bradycardia which he was having on [id number] medications. It seems however that he is very sensitive to metoprolol and had daytime bradycardia with a higher dose of metoprolol in the morning than in the evening. We therefore switched him to a lower dose of metoprolol and a higher dose of diltiazem. He feels well and is anxious to go home. He has no cardiovascular complaints. Social History Smoking Status: Never Smoker History of Alcohol Use: No Review of Systems Respiratory: + dyspnea on exertion, No shortness of breath Cardiac: No chest pain Medications Cardiovascular: Item Value Date Time Diltiazem HCl 120 mg 5/1/18 2100 (Cardizem Sr) BID/PO 06/21/17 0755 Metoprolol 50 mg 06/19/17 2100 Tartrate BID/PO 06/21/17 0755 (Lopressor Tab) Enoxaparin Sodium 90 mg 06/16/17 1800 (Lovenox Inj) Q12H/SQ 06/21/17 0548 Aspirin 81 mg 06/15/17 0900 (Ecotrin Tab) QAM/PO 06/21/17 0755 Atorvastatin 40 mg 06/14/17 2100 Calcium HS/PO 06/20/17 2203 (Lipitor Tab) Objective Vital Signs Past 12 Hours Date Time Temp Pulse Resp B/P (MAP) Pulse Ox O2 Delivery O2 Flow Rate FiO2 06/21/17 08:09 36.8 88 22 121/74 (90) 100 BiPAP 06/21/17 04:00 Room Air 06/21/17 03:22 37.0 82 18 120/81 (94) 97 CPAP 82 06/20/17 23:59 Room Air 06/20/17 23:48 37.3 94 18 135/89 (104) 96 06/20/17 23:28 98 97 2.0 Last Recorded Weight-Kilograms: 89.000 Physical Exam Constitutional: Level of Distress: moderate distress Lungs: Respiratory effort: no dyspnea, good air movement Auscultation: breath sounds normal, no rales/crackles Cardiovascular: Heart Auscultation: no murmurs, no rubs, tachycardia, irregular rate rhythm Peripheral Pulses: Bruits: none appreciated Extremities: no edema Data Laboratory Results: Last 24 Hours Test 06/20/17 21:52 06/21/17 05:45 Heparin Anti-Xa Act, Low Molec Wt 0.79 IU/ML White Blood Count 7.27 K/uL Red Blood Count 3.51 M/uL Hemoglobin 10.7 g/dL Hematocrit 32.8 % Mean Corpuscular Volume 93.4 fL Mean Corpuscular Hemoglobin 30.5 pg Mean Corpuscular Hemoglobin Concent 32.6 g/dl RDW Standard Deviation 57.6 fL RDW Coefficient of Variation 16.9 % Platelet Count 140 K/uL Mean Platelet Volume 9.9 fL Prothrombin Time 15.9 SECONDS Prothromb Time International Ratio 1.5 Sodium Level 135 mmol/L Potassium Level 4.2 mmol/L Chloride Level 104 mmol/L Carbon Dioxide Level 26 mmol/L Anion Gap 5.0 mmol/L Blood Urea Nitrogen 24 mg/dl Creatinine 1.38 mg/dl Est Creatinine Clear Calc Drug Dose 55.3 ml/min Estimated GFR () 59.6 Estimated GFR (Non- 51.4 BUN/Creatinine Ratio 17.2 Random Glucose 93 mg/dl Calcium Level 8.4 mg/dl Telemetry reviewed: Atrial fibrillation with a very well-controlled heart rate on his current medical regimen Assessment and Plan 1. CHF: Diastolic, at this point he seems euvolemic weights are little hard to interpret as he was using a bed scale now is on a standing scale. 2. AF: Chronic, but with rapid heart rate. On his current regimen he appears to have a well-controlled heart rate both day and night. He seems to be very sensitive to beta-blockade, therefore I would not use a dose higher than his current dose. A combination of his current dose of metoprolol and diltiazem appears to result in very good heart rate control. For his atrial fibrillation I would continue his anticoagulation. 3. CAD: No evidence of acute ischemic event. Thank you for allowing me to participate in his care.
[2017-06-21 12:03] VITALS: BP 111/72; PULSE 89; TEMP 36.9; O2SAT 98
[2017-06-21 12:50] VITALS: BP 115/76; PULSE 49; TEMP 36.5; O2SAT 96
[2017-06-21] MEDS ORDERED: FLM4 PO (13:39)
[2017-06-21] MEDS ORDERED: DILT-213 PO (13:39)
[2017-06-21] MEDS ORDERED: METO100T14 PO (13:39)
[2017-06-21] MEDS ORDERED: ENOX100I SC (13:39)
[2017-06-21] MEDS ORDERED: HYDR-5688 PO (13:40)
--- NOTE | 2017-06-21 13:55 | Discharge Instructions ---
Discharge Instructions Date of Service June 21, 2017. Admission Reason for Admission: Kidney Stone, Uncontrolled A. fib Discharge Discharge Diagnosis / Problem: Kidney stone with stent placement; improved A. fib Discharge Goals Goal(s): Learn about illness, Diagnostic testing, Therapeutic intervention Activity Recommendations Activity Limitations: as noted below Until your kidney stent is removed please avoid excessive strenuous activities. Would avoid going to the gym, heavy indoor/outdoor chores, lifting over 20-25 pounds, etc. Light activities/walks are fine. . Instructions / Follow-Up Instructions / Follow-Up From Dr. Tucker - 1. A. fib - your heart rate is now under much better control with adjustments in your medications. Please take the following 2 medications to control your A. fib - * cardizem CD (diltiazem) - 120mg TWICE A DAY; prescription sent to [facility] * start this TONIGHT, 06/21/17 * metoprolol - note that your dose has been LOWERED to 50mg TWICE A DAY; I have provided you a new prescription for the lower dose but you are welcome to use your old supply of 100mg tablets and simply break them in half for now 2. Blood thinners - * HOLD your coumadin at this time * the urology team will tell you when it is safe to resume this (likely after the stent is removed) * TAKE lovenox injection 90mg every morning starting TOMORROW 06/22/17 * You will have to "waste" 10mg of the 100mg syringe before injecting the lovenox into yourself * again you need 90mg each time * PLEASE DO NOT TAKE THE LOVENOX ON THE MORNING OF 06/28/17 (THE DAY OF YOUR STENT REMOVAL) * the last dose of lovenox should be early in the morning on 06/27/17 * Hold your aspirin and do not take any xbue-sby-gkzpoet anti-inflammatory pills (motrin, ibuprofen, naprosyn, etc) 3. Pain - * you can take narcotic pain killer - hydrocodone/acetaminophen 1 tablet every 6 hours as needed for pain * these pain killers will cause constipation and sometimes sleepiness * do not drink alcohol with the pain killers; do not drive while taking pain killers * note that the pain killers have tylenol in them -- if you elect to take the pain killer please do not take extra wcwn-uyh-omqrcsm tylenol * if you prefer you can simply take dstz-sla-ujirzgt tylenol for aches/pains all by itself * you can take pyridium 200mg up to 3 times a day for urinary discomfort/ bladder pain * this product will make your urine and tears look orange; this is normal side effect * this medication was called to [facility] for you 4. You may continue to see small, intermittent amounts of blood in the urine due to the stent. However, if the bleeding seems to be getting much worse, please let the urologist know right away. 5. Constipation - * you can take jjot-puf-qnnnsvx miralax and/or syus-ipy-xnvwqjv senna (senakot) for your bowels as needed/desired 6. STOP your lisinopril. 7. START flomax 0.4mg at bedtime; prescription sent to [facility] for you. This medication was recommended by the urology team for your urinary tract. 8. Follow-up appointments - * see the Cardiology clinic within 1 week * see Dr. Ross, urology, on 06/28/17 - as scheduled * see your family doctor within 1 week 9. Return to [facility] if - * you have fever over 100.4 degrees * you see excessive amounts of blood in the urine * you have painful urination not responding to your medications * you have difficulty passing your urine * you have shortness of breath or chest pain * you feel severely lightheaded * any other concerns Current Hospital Diet Patient's current hospital diet: AHA Diet (Heart Healthy) Discharge Diet Recommended Diet: AHA Diet (Heart Healthy) Procedures Procedures Performed: Cystoscopy, right retrograde pyelography, right flexible ureteroscopy with laser lithotripsy, basket stone extraction and ureteral stent placement. Pending Studies Studies pending at discharge: no Medical Emergencies . Who to Call and When: Medical Emergencies: If at any time you feel your situation is an emergency, please call 911 immediately. . Non-Emergent Contact Non-Emergency issues call your: Primary Care Provider, Mail Messenger Contractor, Urologist Call Non-Emergent contact if: temperature is above 100.5, your pain is not controlled, your pain is worsening, your pain is unusual for you, your pain is concerning you, you have any medication questions . . "Provider Documentation" section prepared by Jez Tucker. .
[2017-06-21 13:56] VITALS: BP 115/76; PULSE 49; TEMP 36.5; O2SAT 96
[2017-06-21] MEDS ORDERED: PHEN-775 PO (14:58)
[2017-06-22] MEDS ORDERED: ENOXAPARIN 100 MG/1ML SYR SQ SCH (09:00)
== END 2017-06-21 15:05 | disposition home health service (06) | DRG 987 ==
LOC: C.ACU 08:01 → C.2T 14:20 → ENRESERV 15:42 → OBSVTOIN 06-15 11:47
PROVIDERS: ADMIT Internal Medicine; ATTEND Internal Medicine
PROC: 0T768DZ Dilation of Right Ureter with Intraluminal Device, Via Natural or Artificial Opening Endoscopic (ICD-10-PCS; principal; 2017-06-14 10:15)
PROC: 0TC68ZZ Extirpation of Matter from Right Ureter, Via Natural or Artificial Opening Endoscopic (ICD-10-PCS; principal; 2017-06-14 10:15)
PROC: BT1DZZZ Fluoroscopy of Right Kidney, Ureter and Bladder (ICD-10-PCS; principal; 2017-06-14 10:15)
DX: I48.2 Chronic atrial fibrillation (principal); I50.33 Acute on chronic diastolic (congestive) heart failure; G93.41 Metabolic encephalopathy; N17.0 Acute kidney failure with tubular necrosis; I13.0 Hypertensive heart and chronic kidney disease with heart failure and stage 1 through stage 4 chronic kidney disease, or unspecified chronic kidney disease; N20.0 Calculus of kidney; K59.00 Constipation, unspecified; N18.3 Chronic kidney disease, stage 3 (moderate); E11.9 Type 2 diabetes mellitus without complications; I25.10 Atherosclerotic heart disease of native coronary artery without angina pectoris; I25.2 Old myocardial infarction; I69.334 Monoplegia of upper limb following cerebral infarction affecting left non-dominant side; G47.33 Obstructive sleep apnea (adult) (pediatric); E78.5 Hyperlipidemia, unspecified; F03.90 Unspecified dementia, unspecified severity, without behavioral disturbance, psychotic disturbance, mood disturbance, and anxiety; E55.9 Vitamin D deficiency, unspecified; Z79.899 Other long term (current) drug therapy; Z79.01 Long term (current) use of anticoagulants; Z79.82 Long term (current) use of aspirin; Z87.442 Personal history of urinary calculi; Z95.5 Presence of coronary angioplasty implant and graft; Z86.79 Personal history of other diseases of the circulatory system; Z88.8 Allergy status to other drugs, medicaments and biological substances; Z91.048 Other nonmedicinal substance allergy status; Z84.1 Family history of disorders of kidney and ureter; Z83.3 Family history of diabetes mellitus; Z82.3 Family history of stroke; Z82.49 Family history of ischemic heart disease and other diseases of the circulatory system

== ENCOUNTER → 2017-07-03 | Outpatient (CLI) | payer BC ==
[~2017-07-03] MED LIST changes: -ASPCH81X PO; -CIPROFLOXACIN / D5W 400 MG IV SCH; -CMD2 PO; +DILT-213 PO; +ENOX100I SC; +FLM4 PO; +HYDR-5688 PO; -LACTATED RINGER'S 1000ML 1,000 ML IV SCH; -LISI-461 PO; +PHEN-775 PO; -PHEN-876 PO
[2017-07-03 14:38] LABS: BASO % 0.8 %; BASO ABS # 0.05 K/uL (0-0.2); EOS % 2.2 %; EOS ABS # 0.14 K/uL (0-0.5); HEMATOCRIT 36.2 % (42-52); HEMOGLOBIN 11.9 g/dL (14.0-18.0); IG# 0.01 K/uL (0.00-0.02); LYMPH ABS # 1.43 K/uL (1.2-3.4); MEAN CELL VOLUME 93.1 fL (80-100); MEAN CORPUSCULAR HEMOGLOBIN 30.6 pg (25-34); MEAN CORPUSCULAR HGB CONC 32.9 g/dl (32-36); MEAN PLATELET VOLUME 9.4 fL (7.4-10.4); MONO % 4.9 %; MONO ABS # 0.32 K/uL (0.11-0.59); NEUT % 69.9 %; NEUT ABS # 4.55 K/uL (1.4-6.5); PLATELET COUNT 264 K/uL (130-400); RED CELL DISTRIBUTION WIDTH CV 16.4 % (11.5-14.5); RED CELL DISTRIBUTION WIDTH SD 55.6 fL (36.4-46.3)
[2017-07-03 15:16] LABS: ALBUMIN 3.4 gm/dl (3.4-5.0); ALT/SGPT 33 U/L (12-78); AST/SGOT 22 U/L (15-37); BLOOD UREA NITROGEN 21 mg/dl (7-18); CALCIUM 9.2 mg/dl (8.5-10.1); CARBON DIOXIDE 28 mmol/L (21-32); CREATININE 1.31 mg/dl (0.60-1.40); GLUCOSE 94 mg/dl (70-99); POTASSIUM 4.2 mmol/L (3.5-5.1); SODIUM 137 mmol/L (136-145)
[2017-07-03 15:20] LABS: ALKALINE PHOSPHATASE 117 U/L (45-117); TOTAL PROTEIN 7.8 gm/dl (6.4-8.2)
== END | disposition home or self-care (01) ==
LOC: C.LAB 13:37
PROVIDERS: ATTEND Internal Medicine Geriatric Medicine
DX: Z51.81 Encounter for therapeutic drug level monitoring (principal); I10 Essential (primary) hypertension; N20.0 Calculus of kidney; K76.0 Fatty (change of) liver, not elsewhere classified; E11.9 Type 2 diabetes mellitus without complications; Z79.01 Long term (current) use of anticoagulants; R42 Dizziness and giddiness; E78.5 Hyperlipidemia, unspecified

== ENCOUNTER → 2017-07-11 | Outpatient (CLI) | payer BC ==
--- NOTE | 2017-07-11 16:06 | DIAGNOSTIC IMAGING REPORT ---
(CHEST) THORAX WITHOUT CLINICAL HISTORY: 71 years-old Male presenting with R91.1 Solitary pulmonary nodule. TECHNIQUE: Multidetector CT imaging of the chest was performed without the use of intravenous contrast. IV contrast: None. A dose lowering technique was used consistent with the principles of ALARA (as low as reasonably achievable). COMPARISON: 11/01/2016. CT DOSE (mGy.cm): The estimated cumulative dose is 759.28 mGy.cm. FINDINGS: Senior Test Analyst topogram: Unremarkable. On soft tissue windows, normal thyroid and thoracic inlet. Bilateral gynecomastia. Calcified mediastinal and left hilar lymph nodes indicate prior granulomatous infection. No axillary, supraclavicular, or mediastinal lymphadenopathy. Evaluation of the darin limited without intravenous contrast. Atherosclerosis of the aorta. Main pulmonary artery mildly enlarged measuring 3.1 cm in diameter. Normal heart size. Coronary artery calcification. No pericardial or pleural effusion. Upper abdomen normal. On lung windows, unchanged size and appearance of the part solid part subsolid nodule at the left apex (series 4 image 40). Multiple calcified granulomata. Mild bronchial wall thickening. Mosaic attenuation noted in the left upper lobe likely indicating small airways disease. Central airways patent. On bone windows, degenerative changes of the spine. IMPRESSION: 1. Stable appearance of the part solid 8 mm nodule at the left apex. Follow-up per Darleen Society 2017 criteria below with the initial start date of 03/21/2016. Please refer to below summary of Fleischner Society 2017 recommendations for follow-up of incidental CT nodules (H Cesia et al. Guidelines for management of incidental pulmonary nodules detected on CT images: From the Fleischner Society 2017. Radiology 2017; 284: 228-243.) SOLID NODULES Single nodule; size < 6 mm * Low risk patients: No routine follow-up * High risk patients: Optional CT at 12 months Single nodule; size 6-8 mm * Low risk patients: CT at 6-12 months, then consider CT at 18-24 months * High risk patients: CT at 6-12 months, then at 18-24 months Single nodule; size > 8 mm * Either low or high risk patients: Considered CT at 3 months, PET/CT, or tissue sampling Multiple nodules; size < 6 mm * Low risk patients: No routine follow up * High risk patients: Optional CT at 12 months Multiple nodules; size 6-8 mm * Low risk patients: CT at 3-6 months, then consider CT at 18-24 months * High risk patients: CT at 3-6 months, then at 18-24 months Multiple nodules; size > 8 mm * Low risk patients: CT at 3-6 months, then consider at 18-24 months * High risk patients: CT at 3-6 months, then at 18-24 months SUBSOLID NODULES Single ground-glass nodule * Nodule size < 6 mm: No routine follow-up * Nodule size > or = 6 mm: CT at 6-12 months to confirm persistence, then CT every 2 years until 5 years Single part-solid nodule * Nodule size < 6 mm: No routine follow-up * Nodules size > or = 6 mm: CT at 3-6 months to confirm persistence. If unchanged and solid component remains < 6 mm, annual CT should be performed for 5 years Multiple nodules * Nodule size < 6 mm: CT at 3-6 months. If stable, consider CT at 2 and 4 years. * Nodules size > or = 6 mm: CT at 3-6 months. Subsequent management based on the most suspicious nodule(s) NOTE: 1) These guidelines apply to incidental nodules. These guidelines do NOT apply to patients younger than 35 years, immunocompromised patients, or patients with cancer. 2) Risk categories: * Low risk patients: Minimal or absent history of smoking and/or other known risk factors * High risk patients: History of smoking, exposure to other carcinogens, emphysema, fibrosis, upper lobe location, family history of lung cancer, etc. 3) If a nodule up to 8 mm is partly solid or is ground glass, further follow-up is required after 24 months to exclude possible slow growing adenocarcinoma. Electronically signed by: Hay Alvarado M.D. 07/11/2017 4:05 PM Dictated Date/Time: 07/11/2017 3:58 PM
== END | disposition home or self-care (01) ==
LOC: C.CTS 15:27
PROVIDERS: ATTEND Internal Medicine Pulmonary Disease
DX: R91.1 Solitary pulmonary nodule (principal)

== ENCOUNTER → 2017-09-10 | Outpatient (CLI) | payer BC ==
[~2017-09-10] MED LIST changes: +ACET300T3 PO; +ASPI-232 PO; +COEN100C6 PO; -DILT-213 PO; +DILT120C68 PO; -ENOX100I SC; +ENOX1INJ11 SQ; +EXL15 PO; -FLM4 PO; -HYDR-5688 PO; -PHEN-775 PO; +PHEN-876 PO; -RIVA3CAP4 PO; +TAMS0.4C38 PO; +TEST2.5G TOP; -TEST5GEL TOP; +WARF2TAB8 PO
[2017-09-10 13:04] LABS: HEMOGLOBIN 12.7 g/dL (14.0-18.0); MEAN CELL VOLUME 93.8 fL (80-100); MEAN CORPUSCULAR HEMOGLOBIN 30.5 pg (25-34); MEAN CORPUSCULAR HGB CONC 32.6 g/dl (32-36); MEAN PLATELET VOLUME 10.6 fL (7.4-10.4); PLATELET COUNT 183 K/uL (130-400); RED CELL DISTRIBUTION WIDTH CV 15.2 % (11.5-14.5); RED CELL DISTRIBUTION WIDTH SD 51.4 fL (36.4-46.3); WHITE BLOOD COUNT 7.16 K/uL (4.8-10.8)
[2017-09-10 13:30] LABS: ALBUMIN 3.7 gm/dl (3.4-5.0); ALKALINE PHOSPHATASE 141 U/L (45-117); ALT/SGPT 23 U/L (12-78); AST/SGOT 16 U/L (15-37); BLOOD UREA NITROGEN 18 mg/dl (7-18); CALCIUM 8.6 mg/dl (8.5-10.1); CARBON DIOXIDE 23 mmol/L (21-32); CHOLESTEROL 110 mg/dl (0-200); CREATININE 1.35 mg/dl (0.60-1.40); GLUCOSE 97 mg/dl (70-99); LDL CHOLESTEROL CALCULATED 40 mg/dl; POTASSIUM 4.4 mmol/L (3.5-5.1); SODIUM 137 mmol/L (136-145); TOTAL PROTEIN 7.8 gm/dl (6.4-8.2); URIC ACID 4.1 mg/dl (2.6-7.2)
== END | disposition home or self-care (01) ==
LOC: C.LABBC 11:24
PROVIDERS: ATTEND Internal Medicine Nephrology
DX: I10 Essential (primary) hypertension (principal); R31.9 Hematuria, unspecified; E11.9 Type 2 diabetes mellitus without complications; N20.0 Calculus of kidney; E55.9 Vitamin D deficiency, unspecified; D64.9 Anemia, unspecified

== ENCOUNTER 2018-04-28 13:37 | Observation (INO) ==
[2018-04-28] MEDS ORDERED: ACETAMINOPHEN 325 MG TAB PO STA (14:16)
[2018-04-28 14:56] LABS: Basophils # (auto) 0.03 K/uL (0-0.2); Basophils % (auto) 0.3 %; Eosinophils # (auto) 0.18 K/uL (0-0.5); Hematocrit (blood only) 37.3 % (42-52); Hemoglobin 12.1 g/dL (14.0-18.0); Immature Granulocytes # (auto) 0.02 K/uL (0.00-0.02); Immature Granulocytes % (auto) 0.2 %; Lymphocytes # (auto) 1.32 K/uL (1.2-3.4); Lymphocytes % (auto) 14.4 %; Mean Corpuscular Hgb Conc 32.4 g/dL (32-36); Mean Corpuscular Volume 89.4 fL (80-100); Mean Platelet Volume 9.9 fL (7.4-10.4); Monocytes # (auto) 0.49 K/uL (0.11-0.59); Monocytes % (auto) 5.4 %; Neutrophils % (auto) 77.7 %; Platelet Count 188 K/uL (130-400); RDW Coefficient of Variation 17.2 % (11.5-14.5); RDW Standard Deviation 56.2 fL (36.4-46.3); Red Blood Count 4.17 M/uL (4.7-6.1); White Blood Count 9.14 K/uL (4.8-10.8)
--- NOTE | 2018-04-28 15:03 | XRay Report ---
XR elbow RT min 3V routine CLINICAL HISTORY: L elbow pain TTP swelling over radial head COMPARISON: None. DISCUSSION: Joint effusion with elevation of the anterior fat pad. Nondisplaced fracture radial head. Reported upon generalized degenerative change and chondrocalcinosis. Partial calcification medial la teral collateral ligament complexes. There is no evidence for soft tissue swelling. IMPRESSION: Nondisplaced fracture radial head. The above report was generated using voice recognition software. It may contain grammatical, syntax or spelling errors. Electronically signed by: Gopi Woods M.D. 04/28/2018 3:01 PM
[2018-04-28 15:11] LABS: BUN Creatinine Ratio 18.1 (10-20); Calcium 8.9 mg/dl (8.5-10.1); Creatinine Clr Calc Pharmacy 71.5 ml/min; Est GFR (African American) 79.6; Est GFR (Non-African American) 68.7
[2018-04-28 15:13] LABS: Prothrombin Time 42.4 Seconds (9.0-12.0)
--- NOTE | 2018-04-28 15:26 | Emergency Department Note ---
History of Present Illness General Chief complaint: Elbow Injury/Pain Stated complaint: RIGHT ELBOW SWOLLEN,RT LEG WARMTH IN CERTAIN AREA Time Seen by Provider: 04/28/18 13:56 History of Present Illness Maximum Pain Intensity: 8 This patient is a 72-year-old male who presents emergency department with complaints of severe pain in the right elbow that they have noticed for the last day. The patient and the patient's denies any significant injury. The patient is right-hand dominant as he had a stroke leaving him with left-sided weakness. He did try to use the right arm yesterday to pull himself into a doorway. He thinks that he may have injured it then. They deny any trauma. He says the pain is throbbing. He took Tylenol with good pain relief. He currently rates his discomfort a 3/10. He denies any numbness or tingling into the hand. No other injuries. Denies any fever or chills. The patient has a history of A. fib. He is on Coumadin. They are requesting that we check his INR as it was elevated lately. Home Medications Home Medications Medication Instructions Recorded Confirmed Type aspirin [Aspir-81] 81 mg PO DAILY 02/13/18 04/28/18 History atorvastatin 40 mg PO PM 02/13/18 04/28/18 History cholecalciferol (vitamin D3) 1,000 unit PO QPM 02/13/18 04/28/18 History [Vitamin D3] coenzyme Q10 [CoQ-10] 100 mg PO BID 02/13/18 04/28/18 History diltiazem HCl 240 mg PO DAILY 02/13/18 04/28/18 History furosemide [Lasix] 20 mg PO DAILY 02/13/18 04/28/18 History memantine [Namenda] 10 mg PO BID 02/13/18 04/28/18 History metoprolol tartrate 50 mg PO BID 02/13/18 04/28/18 History rivastigmine tartrate 3 mg PO QAM 02/13/18 04/28/18 History tamsulosin [Flomax] 0.4 mg PO HS 02/13/18 04/28/18 History testosterone [AndroGel] 1 appful/day TOPICAL DAILY PRN 02/13/18 04/28/18 History warfarin [Coumadin] 2 mg PO QAM 02/13/18 04/28/18 History acetaminophen [Tylenol Extra 1,000 mg PO Q6H PRN 04/28/18 04/28/18 History Strength] Allergies Allergy/AdvReac Type Severity Reaction Status Date / Time adhesive Allergy Intermediate BLISTERS Verified 04/28/18 14:30 alcohol Allergy Unknown RUBBING Verified 04/28/18 14:30 ALCOHOL MADE SHORTNESS OF BREATH escitalopram Allergy Unknown UNSURE-DOES Verified 04/28/18 14:30 NOT KNOW oxycodone Allergy Unknown CONFUSION Verified 04/28/18 14:30 Past Med/Surg History Medical History BARBARA (obstructive sleep apnea) BPH (benign prostatic hyperplasia) CAD (coronary artery disease) CHF (congestive heart failure) CVA (cerebral vascular accident) Dementia Atrial fibrillation (Chronic) Hypertension (Chronic) Hyperlipidemia (Chronic) Coronary artery disease Family History Father CVA (cerebral vascular accident) Mother Heart attack Social History Preferred Language: Turkmen Communication Ability: Effective Toddler Lead Teacher Required: No Beliefs That Will Affect Care: None Current Living Situation: Spouse Other Information That Helps Us Care for You: No Feels Safe at Home: Yes Safety Concerns: Feels Safe At This Time Smoking Status: Never smoker Hx Alcohol Use: No Hx Substance Use: No Review of Systems A total of 10 systems reviewed and were otherwise negative Physical Exam Vital Signs Vital Signs - 24 hr 04/28/18 13:40 04/28/18 15:37 04/28/18 17:27 Temperature 36.7 C Temperature Source Oral Sepsis Recent Fever Within 48 Hours No Sepsis New/Unexplained Change in Mental Status No Sepsis Action Taken by Nursing No Action Required Pulse Rate 85 Pulse Rate [Finger] 73 74 Pulse Rhythm [Finger] Pulse Strength [Finger] Respiratory Rate 18 20 18 Respiratory Effort / Characteristics Spontaneous Non-Labored Spontaneous Respiratory Depth Normal Blood Pressure 144/84 H Blood Pressure [Left Arm] 145/81 H 125/85 Blood Pressure Mean 104 Blood Pressure Mean [Left Arm] 102 98 Blood Pressure Position Sitting Blood Pressure Position [Left Arm] Sitting Pulse Oximetry 100 98 96 Oxygen Delivery Method Room Air Room Air Room Air 04/28/18 19:35 04/28/18 19:55 Temperature 36.6 C Temperature Source Oral Sepsis Recent Fever Within 48 Hours Sepsis New/Unexplained Change in Mental Status Sepsis Action Taken by Nursing Pulse Rate Pulse Rate [Finger] 86 82 Pulse Rhythm [Finger] Regular Pulse Strength [Finger] Normal Respiratory Rate 18 18 Respiratory Effort / Characteristics Non-Labored Spontaneous Respiratory Depth Normal Blood Pressure Blood Pressure [Left Arm] 126/81 152/94 H Blood Pressure Mean Blood Pressure Mean [Left Arm] 96 113 Blood Pressure Position Blood Pressure Position [Left Arm] Lying Pulse Oximetry 98 95 Oxygen Delivery Method Room Air Room Air Constitutional WD/WN, vitals as above Eyes EOM intact bilaterally ENMT external ear and nose normal, oropharynx normal Neck trachea midline Respiratory normal respiratory effort, lungs clear to auscultation Cardiovascular Occasionally irregular. No murmur. Musculoskeletal RIGHT UPPER EXTREMITY: Edema and tenderness to palpation particularly over the right radial head. Difficulty with any flexion or extension. The patient is able to make an okay sign, a thumbs up. Radial pulse +2. Sensation in the fingers is intact. Skin no rashes, warm and dry Neurologic Alert and answering most questions appropriately. His does do some answering for him. No focal motor deficits noted. Psychiatric Acting appropriately, but forgetful Course Patient was seen and examined Vital signs including blood pressure were reviewed medications list was verified with patient Labs were obtained, and a saline lock was established The patient was ordered Tylenol 650 mg p.o. for pain Imaging was performed and reviewed The patient was reassessed. He was still complaining of pain. He was ordered tramadol 50 mg p.o. We discussed his results. He voiced understanding. The patient was put in a posterior long arm Ortho-Glass splint. He was given a sling. The patient was also seen and examined by my supervising physician who is in agreement with my plan. The case was discussed with orthopedics. We sat down with the patient and the patient's family. The family service caseworker and I had a conversation regarding possible discharge home versus staying in the hospital. It was felt that the patient was a significant fall risk at home; therefore, the [facility] Hospitalist service was consulted. They kindly agreed to evaluate the patient for further treatment. Consultations Consultation #1: Dr. Hassan Consultation #2: Dr. Estrada Administered Medications Discontinued Medications Acetaminophen (Tylenol) 650 mg PO NOW STA Stop: 04/28/18 14:17 Last Admin: 04/28/18 14:57 Dose: 650 mg Documented by: [id number] Tramadol HCl (Ultram) 50 mg PO NOW STA Stop: 04/28/18 15:41 Last Admin: 04/28/18 15:54 Dose: 50 mg Documented by: [id number] Medical Decision Making Medical Records Attestation: I reviewed the patient's medical records. Home Medications Current Medication List: was personally reviewed by me Laboratory Data Attestation: I reviewed the patient's lab results. Result diagrams: 04/28/18 14:45 04/28/18 14:45 Lab Results 04/28/18 04/28/18 04/28/18 Range/Units 14:45 14:45 14:45 WBC 9.14 (4.8-10.8) K/uL RBC 4.17 L (4.7-6.1) M/uL Hgb 12.1 L (14.0-18.0) g/dL Hct 37.3 L (42-52) % MCV 89.4 (80-100) fL MCH 29.0 (25-34) pg MCHC 32.4 (32-36) g/dL RDW Std Deviation 56.2 H (36.4-46.3) fL RDW Coeff of Alex 17.2 H (11.5-14.5) % Plt Count 188 (130-400) K/uL MPV 9.9 (7.4-10.4) fL Immature Gran % (Auto) 0.2 % Neut % (Auto) 77.7 % Lymph % (Auto) 14.4 % Scurry % (Auto) 5.4 % Eos % (Auto) 2.0 % Baso % (Auto) 0.3 % Immature Gran # (Auto) 0.02 (0.00-0.02) K/uL Neut # (Auto) 7.10 H (1.4-6.5) K/uL Lymph # (Auto) 1.32 (1.2-3.4) K/uL Scurry # (Auto) 0.49 (0.11-0.59) K/uL Eos # (Auto) 0.18 (0-0.5) K/uL Baso # (Auto) 0.03 (0-0.2) K/uL ESR 67 H (0-14) mm/hr PT (9.0-12.0) Seconds INR (0.9-1.1) Sodium (136-145) mmol/L Potassium (3.5-5.1) mmol/L Chloride (98-107) mmol/L Carbon Dioxide (21-32) mmol/L Anion Gap (3-11) BUN (7-18) mg/dl Creatinine (0.6-1.4) mg/dl Est Cr Clr Drug Dosing ml/min Est GFR ( Amer) Est GFR (Non-Af Amer) BUN/Creatinine Ratio (10-20) Glucose (70-99) mg/dl Calcium (8.5-10.1) mg/dl C-Reactive Protein 4.40 H (0-0.29) mg/dl 04/28/18 04/28/18 Range/Units 14:45 14:45 WBC (4.8-10.8) K/uL RBC (4.7-6.1) M/uL Hgb (14.0-18.0) g/dL Hct (42-52) % MCV (80-100) fL MCH (25-34) pg MCHC (32-36) g/dL RDW Std Deviation (36.4-46.3) fL RDW Coeff of Alex (11.5-14.5) % Plt Count (130-400) K/uL MPV (7.4-10.4) fL Immature Gran % (Auto) % Neut % (Auto) % Lymph % (Auto) % Scurry % (Auto) % Eos % (Auto) % Baso % (Auto) % Immature Gran # (Auto) (0.00-0.02) K/uL Neut # (Auto) (1.4-6.5) K/uL Lymph # (Auto) (1.2-3.4) K/uL Scurry # (Auto) (0.11-0.59) K/uL Eos # (Auto) (0-0.5) K/uL Baso # (Auto) (0-0.2) K/uL ESR (0-14) mm/hr PT 42.4 H (9.0-12.0) Seconds INR 4.6 H (0.9-1.1) Sodium 138 (136-145) mmol/L Potassium 4.0 (3.5-5.1) mmol/L Chloride 104 (98-107) mmol/L Carbon Dioxide 24 (21-32) mmol/L Anion Gap 10.0 (3-11) BUN 20 H (7-18) mg/dl Creatinine 1.08 (0.6-1.4) mg/dl Est Cr Clr Drug Dosing 71.5 ml/min Est GFR ( Amer) 79.6 Est GFR (Non-Af Amer) 68.7 BUN/Creatinine Ratio 18.1 (10-20) Glucose 111 H (70-99) mg/dl Calcium 8.9 (8.5-10.1) mg/dl C-Reactive Protein (0-0.29) mg/dl Imaging Data Attestation: I personally reviewed and interpreted this imaging study as follows: Radiologist's Impression: Right elbow x-rays IMPRESSION: Nondisplaced fracture radial head. The above report was generated using voice recognition software. It may contain grammatical, syntax or spelling errors. Electronically signed by: Gopi Woods M.D. 04/28/2018 3:01 PM Dictated: 04/28/18 1459 Blood Pressure Blood Pressure Findings: Normal blood pressure MDM Narrative Differential diagnosis: Strain, fracture, contusion, dislocation, infectious sonia ology, inflammation This patient is a 72-year-old male who presents to the emergency department with his significant other complaints of right elbow pain, unknown trauma. On exam, he was tender over the radial aspect of the elbow. He was reluctant to bend the elbow. He was neurovascularly intact. X-rays confirm a radial head fracture. This explains his pain. I ordered blood work as there was no clear injury. Although the inflammatory markers are elevated, white blood cell count is normal . He is afebrile. I did not suspect an infectious etiology. The patient requested that we check his INR as it was elevated. He continues to be elevated at 4.6. Case management was involved. The patient was felt to be a significant fall risk. Due to this and elevated INR, I do not feel comfortable sending the patient home. The patient will be evaluated by the hospitalist service for possible admission. Patient and the patient's family were in agreement.. Impression & Plan Closed fracture of radial head Discharge Plan Visit Data *Final* Discharge Date/Time: 03/10/19 19:40 Chief Complaint: Elbow Injury/Pain Stated Complaint: RIGHT ELBOW SWOLLEN,RT LEG WARMTH IN CERTAIN AREA ED Provider: Ricardo Daniel ED Midlevel Provider: Shayna Barber Discharge Problem: Closed fracture of radial head Patient Disposition: Admitted As Inpatient Condition: Fair Discharge Instructions Interventions: ED Discharge Assessment Last Done: 04/28/18 19:40 Discharge Problem: Closed fracture of radial head Qualifiers: Encounter type: initial encounter Laterality: right
[2018-04-28] MEDS ORDERED: TRAMADOL HCL 50 MG TABLET PO STA (15:40)
[2018-04-28 15:43] LABS: INR 4.6 (0.9-1.1)
--- NOTE | 2018-04-28 17:31 | Emergency Department Note ---
Entered by Mckayla Paige acting as a scribe for Ricardo Daniel MD ED Visit Note I have seen and examined this patient. I have discussed this case Shayna Barber PA-C and generally agree with the ED note and findings. . : Closed fracture of radial head Qualifiers: Encounter type: initial encounter Laterality: right The scribe's documentation has been prepared under my direction and personally reviewed by me in its entirety. I confirm that the note above accurately reflects all work, treatment, procedures, and medical decision making performed by me.
--- NOTE | 2018-04-28 18:50 | History & Physical Report ---
Date of Service April 28, 2018 Assessment & Plan (1) Closed fracture of radial head: Uncertain etiology, however pt with recent falls and may not remember a new fall given dementia XR as noted ED spoke with Dr. Hassan, will c/s for f/u PT/OT pending cannot care for pt while he is unable to use R UE given his L sided weakness s/p CVA CM alerted for likely placement Would like to avoid opioids given dementia, states they make his dementia worse (2) Atrial fibrillation: continue home meds Holding coumadin for elevated INR Coumadin use may need re-evaluated given recurrent falls (3) Hypertension: continue home meds (4) Hyperlipidemia: continue home meds (5) Dementia: continue home meds Sitter (6) CVA (cerebral vascular accident): L sided weakness (7) CHF (congestive heart failure): continue home meds (8) CAD (coronary artery disease): hx of stents Holding aspirin given elevated INR and risk for bleeding (9) BPH (benign prostatic hyperplasia): continue home meds (10) BARBARA (obstructive sleep apnea): CPAP as at home (11) DVT prophylaxis: Supratherapeutic on coumadin History of Present Illness Primary Care Provider: Agustin Boyd MD 72 y/o M c/o R elbow pain. states that pt had no issues yesterday getting in and out of the car or to visit their niece's [place] home last night. He was able to pull himself into the front door over a small step even. They came home and later in the evening pt c/o R elbow pain. did not see anything out of the ordinary and tried using Vicks, but pt's pain continued into today. Pt has a hx of CVA with L sided weakness, so the R side is what he relies on for most of his strength. cannot lift him when he cannot assist her with the R side. She had to call the ambulance to bring him here today as she could not assist him. Pt has hx of increasing falls recently. He also has a hx of dementia. states that there was no trauma yesterday that she was aware of, but that pt may not remember if he did fall. Pt has been well otherwise. He does have some pain in his R elbow today, but otherwise feels fine. Pt denies fever, SOB, chest pain, abd pain, n/v/c/d, LE pain or swelling. He has been eating well. Pt was given tramadol in the ED and feels that this has affected his interactions with her and made his memory somewhat worse. states that pt has been working with cardiology to manage his INR. She states it has been within range for many years, however recently this has been more difficult to manage. Pt was recently started on lasix and she has had a challenge with the increased urination and fluid balance issues. Allergies Allergy/AdvReac Type Severity Reaction Status Date / Time adhesive Allergy Intermediate BLISTERS Verified 04/28/18 14:30 alcohol Allergy Unknown RUBBING Verified 04/28/18 14:30 ALCOHOL MADE SHORTNESS OF BREATH escitalopram Allergy Unknown UNSURE-DOES Verified 04/28/18 14:30 NOT KNOW oxycodone Allergy Unknown CONFUSION Verified 04/28/18 14:30 Home Medications Home Medications Medication Instructions Recorded Confirmed Type aspirin [Aspir-81] 81 mg PO DAILY 02/13/18 04/28/18 History atorvastatin 40 mg PO PM 02/13/18 04/28/18 History cholecalciferol (vitamin D3) 1,000 unit PO QPM 02/13/18 04/28/18 History [Vitamin D3] coenzyme Q10 [CoQ-10] 100 mg PO BID 02/13/18 04/28/18 History diltiazem HCl 240 mg PO DAILY 02/13/18 04/28/18 History furosemide [Lasix] 20 mg PO DAILY 02/13/18 04/28/18 History memantine [Namenda] 10 mg PO BID 02/13/18 04/28/18 History metoprolol tartrate 50 mg PO BID 02/13/18 04/28/18 History rivastigmine tartrate 3 mg PO QAM 02/13/18 04/28/18 History tamsulosin [Flomax] 0.4 mg PO HS 02/13/18 04/28/18 History testosterone [AndroGel] 1 appful/day TOPICAL DAILY PRN 02/13/18 04/28/18 History warfarin [Coumadin] 2 mg PO QAM 02/13/18 04/28/18 History acetaminophen [Tylenol Extra 1,000 mg PO Q6H PRN 04/28/18 04/28/18 History Strength] Past Med/Surg History Medical History Coronary artery disease Family History Father CVA (cerebral vascular accident) Mother Heart attack Social History Preferred Language: Lithuanian Feels Safe at Home: Yes Smoking Status: Never smoker Hx Alcohol Use: No Hx Substance Use: No Review of Systems Pertinent positives and negatives reviewed in HPI--all others negative Physical Exam Vital Signs (Past 24 Hours): Last Vital Signs Temp 36.7 C 04/28/18 13:40 Pulse 74 04/28/18 17:27 Resp 18 04/28/18 17:27 BP 125/85 04/28/18 17:27 Pulse Ox 96 04/28/18 17:27 Constitutional: WD/WN, vitals as above Eyes: normal visual dale by confrontation and + anicteric sclerae Neck: normal visual inspection and trachea midline Respiratory: normal respiratory effort, lungs clear to auscultation Cardiovascular: Rate/Rhythm: regular rate and regular rhythm Gastrointestinal (Abdomen): Inspection/Auscultation: + abdomen distended Percussion/Palpation: abdomen soft; abdomen nontender Musculoskeletal: Head/Neck/Chest: normocephalic and head atraumatic negative for edema, peripheral pulses intact Skin: no rashes, warm and dry Neurologic: awake; not confused Speech / Cognition: normal speech Psychiatric: Orientation: oriented to person Affect: + flat affect Results & Data Diagnostic Findings R elbow XR: nondisplaced radial fx Code Status & VTE Plan Code Status Full code VTE Prophylaxis Plan VTE Prophylaxis will be ordered: Yes (1) Closed fracture of radial head Encounter type: initial encounter Laterality: right
[2018-04-28] MEDS ORDERED: ACETAMINOPHEN 500 MG TAB PO PRN (19:58)
[2018-04-28] MEDS ORDERED: MAGNESIUM HYDROXIDE SUSP 30 ML UDC PO PRN (19:58)
[2018-04-28] MEDS ORDERED: ONDANSETRON INJ 2 MG/ML 2 ML VIAL IV PRN (19:58)
[2018-04-28] MEDS ORDERED: NON-FORMULARY MEDICATION (Coenzyme Q10 [Coq-10] 100 MG) PO SCH (21:00)
[2018-04-28] MEDS: METOPROLOL TARTRATE 50 MG TAB PO SCH (21:41)
[2018-04-28] MEDS: CHOLECALCIFEROL 1,000 UNITS TAB PO SCH (21:41)
[2018-04-28] MEDS: MEMANTINE HCL 10 MG TAB PO SCH (21:41)
[2018-04-28] MEDS: TAMSULOSIN HCL 0.4 MG CAP PO SCH (21:42)
[2018-04-28] MEDS: ATORVASTATIN 40 MG TAB PO SCH (21:42)
[2018-04-29] MEDS: ACETAMINOPHEN 325 MG TAB PO PRN ×2 (05:28→10:49)
[2018-04-29 06:42] LABS: Prothrombin Time 42.9 Seconds (9.0-12.0)
[2018-04-29 06:45] LABS: INR 4.7 (0.9-1.1)
[2018-04-29] MEDS: IBUPROFEN 600 MG TAB PO PRN (07:38)
[2018-04-29] MEDS: dilTIAZem HCL 240 MG CAPCR PO SCH (08:52)
[2018-04-29] MEDS: RIVASTIGMINE TARTRATE 1.5 MG CAP PO SCH (08:52)
[2018-04-29] MEDS: METOPROLOL TARTRATE 50 MG TAB PO SCH ×2 (08:53→20:12)
[2018-04-29] MEDS: FUROSEMIDE 20 MG TAB PO SCH (08:53)
[2018-04-29] MEDS: MEMANTINE HCL 10 MG TAB PO SCH ×2 (08:54→20:12)
--- NOTE | 2018-04-29 10:52 | Orthopedic Consultation ---
Date of Consultation April 29, 2018 Assessment & Plan (1) Radial head fracture, closed: The patient is a 72-year-old male with nondisplaced extra-articular right radial head fracture. No surgical intervention at this time. Will do well with conservative treatment for his fracture. Recommend nonweightbearing right upper extremity, sling immobilizer. Posterior splint for comfort. Ice and elevation. Patient is to maintain strict nonweightbearing of his right upper extremity until his follow-up appointment. We would like to see him in 10-14 days upon discharge in the office for follow-up and repeat x-rays, call to schedule appointment [phone]. Thank you for the consultation. History of Present Illness Reason for Consultation: Right elbow fracture Attending Physician: Kam Eisenberg MD, PhD, [facility] History of Present Illness The patient is a 72-year-old male who presented to [facility] secondary to pain to his right elbow. He is a poor historian has a history of dementia. He does recall"bumping"his right elbow and subsequently developing pain. Denies any associated injuries, denies numbness tingling in extremity. Denies prior trauma or surgery to his right elbow. Allergies Allergy/AdvReac Type Severity Reaction Status Date / Time adhesive Allergy Intermediate BLISTERS Verified 04/28/18 14:30 alcohol Allergy Unknown RUBBING Verified 04/28/18 14:30 ALCOHOL MADE SHORTNESS OF BREATH escitalopram Allergy Unknown UNSURE-DOES Verified 04/28/18 14:30 NOT KNOW oxycodone Allergy Unknown CONFUSION Verified 04/28/18 14:30 Home Medications Home Medications Medication Instructions Recorded Confirmed Type aspirin [Aspir-81] 81 mg PO DAILY 02/13/18 04/28/18 History atorvastatin 40 mg PO PM 02/13/18 04/28/18 History cholecalciferol (vitamin D3) 1,000 unit PO QPM 02/13/18 04/28/18 History [Vitamin D3] coenzyme Q10 [CoQ-10] 100 mg PO BID 02/13/18 04/28/18 History diltiazem HCl 240 mg PO DAILY 02/13/18 04/28/18 History furosemide [Lasix] 20 mg PO DAILY 02/13/18 04/28/18 History memantine [Namenda] 10 mg PO BID 02/13/18 04/28/18 History metoprolol tartrate 50 mg PO BID 02/13/18 04/28/18 History rivastigmine tartrate 3 mg PO QAM 02/13/18 04/28/18 History tamsulosin [Flomax] 0.4 mg PO HS 02/13/18 04/28/18 History testosterone [AndroGel] 1 appful/day TOPICAL DAILY PRN 02/13/18 04/28/18 History warfarin [Coumadin] 2 mg PO QAM 02/13/18 04/28/18 History acetaminophen [Tylenol Extra 1,000 mg PO Q6H PRN 04/28/18 04/28/18 History Strength] acetaminophen [Mapap 650 mg PO Q4H PRN 5 Days #15 tab 04/30/18 Rx (acetaminophen)] ibuprofen 600 mg PO Q8H PRN 5 Days #10 tab 04/30/18 Rx Patient History Medical History BARBARA (obstructive sleep apnea) BPH (benign prostatic hyperplasia) CAD (coronary artery disease) CHF (congestive heart failure) CVA (cerebral vascular accident) Dementia Atrial fibrillation (Chronic) Hypertension (Chronic) Hyperlipidemia (Chronic) Coronary artery disease Family History Father CVA (cerebral vascular accident) Mother Heart attack Social History Preferred Language: Slovenian Beliefs That Will Affect Care: None marital status: Current Living Situation: Spouse Other Information That Helps Us Care for You: No Feels Safe at Home: Yes Safety Concerns: Feels Safe At This Time Smoking Status: Never smoker Hx Alcohol Use: No Hx Substance Use: No Review of Systems Constitutional: as per Subjective / HPI Physical Exam Vital Signs (Past 24 Hours): Last Vital Signs Temp 36.8 C 04/29/18 07:12 Pulse 89 04/29/18 07:12 Resp 16 04/29/18 07:12 BP 126/76 04/29/18 07:12 Pulse Ox 95 04/29/18 07:12 Physical Exam: Right upper extremity is neurovascularly sensory intact, + median/ulnar/radial/AIN/PIN, +2 radial pulse, compartment soft, positive tenderness to palpation overlying radial head, sling immobilizer in place. Results & Data Diagnostic Findings XR elbow RT min 3V routine CLINICAL HISTORY: L elbow pain TTP swelling over radial head COMPARISON: None. DISCUSSION: Joint effusion with elevation of the anterior fat pad. Nondisplaced fracture radial head. Reported upon generalized degenerative change and chondrocalcinosis. Partial calcification medial lateral collateral ligament complexes. There is no evidence for soft tissue swelling. IMPRESSION: Nondisplaced fracture radial head.
--- NOTE | 2018-04-29 18:34 | Hospitalist Progress Note ---
Date of Service April 29, 2018 Assessment & Plan (1) Closed fracture of radial head: (2) Atrial fibrillation: (3) Hypertension: (4) Hyperlipidemia: (5) Dementia: (6) CVA (cerebral vascular accident): (7) CHF (congestive heart failure): (8) CAD (coronary artery disease): (9) BPH (benign prostatic hyperplasia): (10) BARBARA (obstructive sleep apnea): (11) DVT prophylaxis: 72-year-old male with hx of CVA with L sided weakness Admitted because of nondisplaced extra-articular right radial head fracture. Closed fracture of radial head: ortho saw pt: No surgical intervention at this time. Will do well with conservative treatment for his fracture. ortho Recommend: nonweightbearing right upper extremity, sling immobilizer. Posterior splint for comfort. Ice and elevation. Patient is to maintain strict nonweightbearing of his right upper extremity until his follow-up appointment. need to see him in 10-14 days upon discharge in the ortho office for follow-up and repeat x-rays, call to schedule appointment [phone]. cannot care for pt while he is unable to use R UE given his L sided weakness s/p CVA CM alerted for likely placement Would like to avoid opioids given dementia, states they make his dementia worse Atrial fibrillation, Hypertension, Dyslipidemia, dementia hx of CVA with L sided weakness, CHF, CAD, BPH,Obstructive sleep apnea on CPAP machine at home Metabolic condition is stable we will continue current care DVT px: Supratherapeutic on coumadin Subjective Sitting in a chair, pain fairly controlled, Denies fever chills Denies cough sputum Denies nausea vomiting abdominal pain diarrhea constipation Denies chest pain palpitation or difficulty breathing Physical Exam Vital Signs (Past 24 Hours): Last Vital Signs Temp 36.6 C 04/29/18 15:03 Pulse 84 04/29/18 15:03 Resp 18 04/29/18 15:03 BP 121/70 04/29/18 15:03 Pulse Ox 92 04/29/18 15:03 Physical Exam: Constitutional: WD/WN, vitals as above HEENT: normal visual dale by confrontation and anicteric sclerae Lungs: normal respiratory effort, lungs clear to auscultation Cardiovascular: Rate/Rhythm: regular rate and regular rhythm Gastrointestinal : abdomen soft; abdomen nontender, BS normocephalic and head atraumatic Musculoskeletal, right forearm in sling, negative for edema, peripheral pulses intact Skin: no rashes, warm and dry Neurologic: awake; No obvious weakness in bilateral lower extremity, no confused< Speech / Cognition: normal speech Psychiatric Orientation: oriented to person Results & Data Laboratory Results Laboratory Results - last 24 hr 04/29/18 05:44 PT 42.9 H INR 4.7 H (1) Closed fracture of radial head Encounter type: initial encounter Laterality: right
[2018-04-29] MEDS: ATORVASTATIN 40 MG TAB PO SCH (20:12)
[2018-04-29] MEDS: TAMSULOSIN HCL 0.4 MG CAP PO SCH (20:12)
[2018-04-29] MEDS: CHOLECALCIFEROL 1,000 UNITS TAB PO SCH (20:12)
[2018-04-30] MEDS: IBUPROFEN 600 MG TAB PO PRN (07:25)
[2018-04-30 07:27] VITALS: TEMP 98.1; O2SAT 95
[2018-04-30 08:32] LABS: Prothrombin Time 40.3 Seconds (9.0-12.0)
[2018-04-30 08:46] VITALS: BP 132/83; PULSE 90
[2018-04-30] MEDS: dilTIAZem HCL 240 MG CAPCR PO SCH (08:46)
[2018-04-30] MEDS: MEMANTINE HCL 10 MG TAB PO SCH (08:47)
[2018-04-30] MEDS: METOPROLOL TARTRATE 50 MG TAB PO SCH (08:47)
[2018-04-30] MEDS: FUROSEMIDE 20 MG TAB PO SCH (08:47)
[2018-04-30] MEDS: RIVASTIGMINE TARTRATE 1.5 MG CAP PO SCH (08:47)
[2018-04-30 09:01] LABS: INR 4.4 (0.9-1.1)
[2018-04-30] MEDS: ACETAMINOPHEN 325 MG TAB PO PRN (12:42)
--- NOTE | 2018-04-30 16:33 | Discharge Summary ---
Date of Service April 30, 2018 Admission HPI Per Admitting Provider 72 y/o M c/o R elbow pain. states that pt had no issues yesterday getting in and out of the car or to visit their niece's new [facility] home last night. He was able to pull himself into the front door over a small step even. They came home and later in the evening pt c/o R elbow pain. did not see anything out of the ordinary and tried using Vicks, but pt's pain continued into today. Pt has a hx of CVA with L sided weakness, so the R side is what he relies on for most of his strength. cannot lift him when he cannot assist her with the R side. She had to call the ambulance to bring him here today as she could not assist him. Pt has hx of increasing falls recently. He also has a hx of dementia. states that there was no trauma yesterday that she was aware of, but that pt may not remember if he did fall. Pt has been well otherwise. He does have some pain in his R elbow today, but otherwise feels fine. Pt denies fever, SOB, chest pain, abd pain, n/v/c/d, LE pain or swelling. He has been eating well. Pt was given tramadol in the ED and feels that this has affected his interactions with her and made his memory somewhat worse. states that pt has been working with cardiology to manage his INR. She states it has been within range for many years, however recently this has been more difficult to manage. Pt was recently started on lasix and she has had a challenge with the increased urination and fluid balance issues. Principal Diagnosis no Discharge Data Allergies Allergy/AdvReac Type Severity Reaction Status Date / Time adhesive Allergy Intermediate BLISTERS Verified 04/28/18 14:30 alcohol Allergy Unknown RUBBING Verified 04/28/18 14:30 ALCOHOL MADE SHORTNESS OF BREATH escitalopram Allergy Unknown UNSURE-DOES Verified 04/28/18 14:30 NOT KNOW oxycodone Allergy Unknown CONFUSION Verified 04/28/18 14:30 Consultations 04/28/18 16:46 ED Decision to Admit Stat 04/28/18 19:58 Consult Case Management - Discharge Planning Routine Consult Orthopedic Surgery Routine Hospital Course (1) Closed fracture of radial head: (2) Atrial fibrillation: (3) Hypertension: continue home meds (4) Hyperlipidemia: (5) Dementia: (6) CVA (cerebral vascular accident): (7) CHF (congestive heart failure): (8) CAD (coronary artery disease): (9) BPH (benign prostatic hyperplasia): (10) BARBARA (obstructive sleep apnea): (11) DVT prophylaxis: 72-year-old male with hx of CVA with L sided weakness Admitted because of nondisplaced extra-articular right radial head fracture. Closed fracture of radial head: Stable and improving ortho saw pt: No surgical intervention at this time. Will do well with conservative treatment for his fracture. ortho Recommend: nonweightbearing right upper extremity, sling immobilizer. Posterior splint for comfort. Ice and elevation. Patient is to maintain strict nonweightbearing of his right upper extremity until his follow-up appointment. need to see him in 10-14 days upon discharge in the ortho office for follow-up and repeat x-rays, call to schedule appointment [phone]. cannot care for pt while he is unable to use R UE given his L sided weakness s/p CVA Would like to avoid opioids given dementia, states they make his dementia worse Atrial fibrillation, Hypertension, Dyslipidemia, dementia hx of CVA with L sided weakness, CHF, CAD, BPH,Obstructive sleep apnea on CPAP machine at home On Coumadin for stroke prevention history of CVA, INR was hypertherapeutic on 4.7, at the repeat 4.4 , need to check PT/INR in 2 day, report result to pcp, recommend to restart coumadin in lower dose when INR around 2.5 Metabolic condition is stable we will continue current care DVT px: Supratherapeutic on coumadin Subjective discharge Sitting up, pleasant, conversational, happy in the bedside to Denies fever chills Denies cough sputum Denies nausea vomiting abdominal pain diarrhea constipation Denies chest pain palpitation or difficulty breathing Physical Exam at discharge Physical Exam: Constitutional: WD/WN, vitals as above HEENT: normal visual dale by confrontation and anicteric sclerae Lungs: normal respiratory effort, lungs clear to auscultation Cardiovascular: Rate/Rhythm: regular rate and regular rhythm Gastrointestinal : abdomen soft; abdomen nontender, BS normocephalic and head atraumatic Musculoskeletal, right forearm in sling, minimal for edema in rigth finger, cap refill normal, color pink , peripheral pulses intact Skin: no rashes, warm and dry Neurologic: awake; No obvious weakness in bilateral lower extremity, no confused< Speech / Cognition: normal speech Psychiatric Orientation: oriented to person Lab information at discharge: Laboratory Results - last 24 hr 04/30/18 07:59 PT 40.3 H INR 4.4 H Total Time Total Time Spent Total Time Spent (In Minutes): 35 Total Time Includes: Examination of the Patient, Discharge Planning, Medication Reconciliation and Communication With Other Providers Discharge Plan Discharge Items Patient Disposition: Transfer [facility] Reason For Visit: RADIAL FX Discharge Diagnosis: Closed fracture of radial head Condition: Fair Discharge Goals: Decrease discomfort, Diagnostic testing and Improve disease control Activity: As commented below Non-emergency contact: Primary Care Provider and Surgeon Call non-emergency contact if: you have any medication questions Follow-up/Referrals: Agustin Boyd MD [Primary Care Provider] - Addtl Provider Instructions: you have Closed fracture of radial head: you need to nonweightbearing right upper extremity, sling immobilizer. Posterior splint for comfort. Ice and e levation. need to maintain strict nonweightbearing of his right upper extremity until his follow-up appointment. need to see him in 10-14 days upon discharge in the ortho office for follow-up and repeat x-rays, call to schedule appointment [phone]. you have Atrial fibrillation, Hypertension, Dyslipidemia, dementia hx of CVA with L sided weakness, CHF, CAD, BPH,Obstructive sleep apnea on CPAP machine at home your INR is 4.4, need to continue to hold coumadin you need to check PT/INR in 2 day, report result to pcp, recommend to restart coumadin in lower dose when INR around 2.5 you need to follow up with your primary care physician in 1 week, - take medication as instructed, never overdose or any misuse, or take with alcohol, because misuse of medicine may cause organ damage or , call me, or your primary care physician if have questions of discharge medicaitons. - call your primary care physician, or go to local emergency room if has any fever/chill, chest pain, shortness of breathing, nausea/vomiting/abdominal pain, facial droop/slurry speech/local weakness, or if has any questions. - fall precaution - diet as instructed - you need to follow up with your subspecialist, such as Dr. ortho surgeon Prescriptions: New acetaminophen [Mapap (acetaminophen)] 325 mg Tablet 650 mg PO Q4H PRN (Reason: pain) 5 Days Qty: 15 RF: 0 ibuprofen 600 mg Tablet 600 mg PO Q8H PRN (Reason: pain) 5 Days Qty: 10 RF: 0 Continued atorvastatin 40 mg Tablet 40 mg PO PM RF: 0 diltiazem HCl 240 mg Capsule,Extended Release 24hr 240 mg PO DAILY RF: 0 aspirin [Aspir-81] 81 mg Tablet,Delayed Release (Dr/Ec) 81 mg PO DAILY RF: 0 tamsulosin [Flomax] 0.4 mg Capsule 0.4 mg PO HS RF: 0 warfarin [Coumadin] 2 mg Tablet 2 mg PO QAM RF: 0 metoprolol tartrate 50 mg Tablet 50 mg PO BID RF: 0 furosemide [Lasix] 20 mg Tablet 20 mg PO DAILY RF: 0 rivastigmine tartrate 3 mg Capsule 3 mg PO QAM RF: 0 cholecalciferol (vitamin D3) [Vitamin D3] 1,000 unit Capsule 1,000 unit PO QPM RF: 0 coenzyme Q10 [CoQ-10] 100 mg Capsule 100 mg PO BID RF: 0 memantine [Namenda] 10 mg Tablet 10 mg PO BID RF: 0 testosterone [AndroGel] 1.62 % (20.25 mg/1.25 gram) Gel In Packet 1 appful/day topical DAILY PRN (Reason: NEEDED) RF: 0 acetaminophen [Tylenol Extra Strength] 500 mg Tablet 1,000 mg PO Q6H PRN (Reason: Pain) RF: 0 Stand-Alone Forms: [facility] Discharge Orders: Discharge Order (Routine); Ordered 04/30/18 Ordered By: Kam Eisenberg Skilled Items Patient informed of condition?: Yes DNR: No Discharge Level of Care: Skilled Communicable Disease: No Discharge Prognosis: Stable Admission Data Admit Date/Time: 04/28/18 18:46 Attending Provider: Kam Eisenberg Admit Provider: Michelle Estrada Primary Care Provider: Agustin Boyd Other Providers: Michelle Estrada ; Pierce Hassan Service: Medical Other Interventions: Discharge Summary Assessment (RN) Last Done: 04/30/18 14:16
== END 2018-04-30 16:45 ==
LOC: ED 13:37 → 3W 13:37 → SUATTDRO 18:46 → 3W 19:40

== ENCOUNTER 2019-02-26 21:59 | Observation (INO) ==
[2019-02-26] MEDS ORDERED: dilTIAZem HCL 125 MG in DEXTROSE 5% 100 ML IV STA (22:14)
[2019-02-26] MEDS ORDERED: dilTIAZem HCl 5 MG/ML 5 ML VIAL IV STA (22:14)
[2019-02-26] MEDS ORDERED: ONDANSETRON INJ 2 MG/ML 2 ML VIAL IV STA (22:14)
[2019-02-26] MEDS ORDERED: SODIUM CHLORIDE 0.9% 1000ML 1,000 ML IV SCH (22:15)
--- NOTE | 2019-02-26 22:35 | XRay Report ---
XR chest 1V portable HISTORY: weakness COMPARISON: Chest 02/13/2018. FINDINGS: There are low lung volumes. The heart remains mildly enlarged. No pleural effusions. No pne umothorax. No evidence for pulmonary edema. No focal lung consolidations to suggest pneumonia. IMPRESSION: No significant change compared to the prior study. No acute process. Stable mild cardiomegaly. ACT 112: Negative or not required by law. Electronically signed by: Terrence Huizar M.D. 02/26/2019 10:33 PM
[2019-02-26 22:45] LABS: INR 2.7 (0.9-1.1); Partial Thromboplastin Ratio 1.2; Partial Thromboplastin Time 33.1 Seconds (21.0-31.0); Prothrombin Time 25.4 Seconds (9.0-12.0)
[2019-02-26 22:51] LABS: Alanine Aminotransferase 18 U/L (12-78); Albumin Level 3.7 gm/dl (3.4-5.0); Aspartate Aminotransferase 16 U/L (15-37); BUN Creatinine Ratio 12.7 (10-20); Blood Urea Nitrogen 20 mg/dl (7-18); Calcium 9.3 mg/dl (8.5-10.1); Carbon Dioxide 26 mmol/L (21-32); Chloride 105 mmol/L (98-107); Creatinine Clr Calc Pharmacy 53.5 ml/min; Est GFR (African American) 51.9; Est GFR (Non-African American) 44.8; Glucose 150 mg/dl (70-99); Magnesium 1.9 mg/dl (1.8-2.4); Potassium 4.2 mmol/L (3.5-5.1); Sodium 138 mmol/L (136-145)
[2019-02-26 22:52] LABS: Basophils # (auto) 0.02 K/uL (0-0.2); Basophils % (auto) 0.3 %; Eosinophils # (auto) 0.03 K/uL (0-0.5); Eosinophils % (auto) 0.4 %; Hematocrit (blood only) 44.5 % (42-52); Hemoglobin 14.5 g/dL (14.0-18.0); Immature Granulocytes # (auto) 0.01 K/uL (0.00-0.02); Immature Granulocytes % (auto) 0.1 %; Lymphocytes # (auto) 0.25 K/uL (1.2-3.4); Lymphocytes % (auto) 3.3 %; Mean Corpuscular Hemoglobin 30.1 pg (25-34); Mean Corpuscular Hgb Conc 32.6 g/dL (32-36); Mean Corpuscular Volume 92.5 fL (80-100); Mean Platelet Volume 10.4 fL (7.4-10.4); Monocytes # (auto) 0.27 K/uL (0.11-0.59); Monocytes % (auto) 3.5 %; Neutrophils # (auto) 7.07 K/uL (1.4-6.5); Neutrophils % (auto) 92.4 %; Platelet Count 173 K/uL (130-400); RDW Coefficient of Variation 15.7 % (11.5-14.5); RDW Standard Deviation 53.2 fL (36.4-46.3); Red Blood Count 4.81 M/uL (4.7-6.1); White Blood Count 7.65 K/uL (4.8-10.8)
[2019-02-26 23:02] LABS: Albumin Globulin Ratio 0.8 (0.9-2); Alkaline Phosphatase 180 U/L (45-117); Bilirubin,Total 0.9 mg/dl (0.2-1); Globulin 4.5 gm/dl (2.5-4.0); Total Protein 8.2 gm/dl (6.4-8.2); Troponin I < 0.015 ng/ml (0-0.045)
--- NOTE | 2019-02-26 23:30 | Emergency Department Note ---
Entered by Isela Fuentes acting as a scribe for Emile Richards MD History of Present Illness General Chief complaint: Illness Stated complaint: VOMITING, DIARRHEA Time Seen by Provider: 02/26/19 22:08 Source: patient and EMS History of Present Illness Onset (ago): hour(s) (several) Location: abdomen Pain Consistency: + other (persistent ) Quality: + other (vomiting and diarrhea) Associated symptoms: + other (negative abdominal pain); no chest pain and no shortness of breath The patient is a 73 year old male who presents to the Emergency Room with complaints of persistent vomiting and diarrhea that began several hours prior to arrival. The patient denies abdominal pain, chest pain, and shortness of breath. EMS states that the patient has Alzheimer's and state that the patient's had a difficult time helping the patient to the bathroom. The patient states that he took his morning medications, but states that he does not know if he took his evening medications. The patient's history and physical are limited sec ondary to Alzheimer's. Home Medications Home Medications Medication Instructions Recorded Confirmed Type aspirin [Aspir-81] 81 mg PO DAILY 02/13/18 01/31/19 History cholecalciferol (vitamin D3) 1,000 unit PO QPM 02/13/18 01/31/19 History [Vitamin D3] coenzyme Q10 [CoQ-10] 100 mg PO BID 02/13/18 01/31/19 History metoprolol tartrate 50 mg PO BID 02/13/18 01/31/19 History acetaminophen [Tylenol Extra 1,000 mg PO Q6H PRN 04/28/18 12/13/18 History Strength] tamsulosin 0.4 mg capsule 0.4 mg PO HS #90 cap 08/08/18 01/31/19 Rx atorvastatin 40 mg tablet 40 mg PO PM #30 tab 11/08/18 01/31/19 Rx triamcinolone acetonide 0.1 % 1 appln TOPICAL DAILY PRN #60 gm 11/14/18 01/31/19 History topical ointment rivastigmine tartrate 3 mg capsule 3 mg PO QAM #30 cap 12/13/18 01/31/19 Rx diltiazem HCl 240 mg 240 mg PO DAILY 90 Days #90 cap 01/30/19 01/31/19 Rx capsule,extended release 24 hr nitroglycerin 0.4 mg sublingual 0.4 mg SL Q5M PRN #25 tab 01/30/19 01/30/19 History tablet vitamin B complex 1 tab PO DAILY 30 Days #30 tab 01/31/19 01/31/19 Rx warfarin 2 mg tablet 2 mg PO .COMPLEX 01/31/19 01/31/19 History memantine 10 mg tablet 10 mg PO BID #180 tab 02/16/19 Rx furosemide 20 mg tablet 20 mg PO DAILY #90 tab 02/17/19 Rx Allergies Allergy/AdvReac Type Severity Reaction Status Date / Time adhesive Allergy Intermediate BLISTERS Verified 12/13/18 10:05 alcohol Allergy Unknown RUBBING Verified 12/13/18 10:05 ALCOHOL MADE SHORTNESS OF BREATH escitalopram Allergy Unknown UNSURE-DOES Verified 12/13/18 10:05 NOT KNOW oxycodone Allergy Unknown CONFUSION Verified 12/13/18 10:05 acetaminophen [From Percocet] Allergy Verified 12/13/18 10:05 lisinopril Allergy Verified 12/13/18 10:05 Past Med/Surg History Medical History Atrial fibrillation (Chronic) BPH (benign prostatic hyperplasia) CAD (coronary artery disease) CHF (congestive heart failure) Coronary artery disease CVA (cerebral vascular accident) Dementia Hyperlipidemia (Chronic) Hypertension (Chronic) BARBARA (obstructive sleep apnea) Surgical History History of knee replacement History of PTCA Family History Father Stroke Mother Myocardial infarction Social History Preferred Language: [place] Communication Ability: Effective Help Desk Manager Required: No Beliefs That Will Affect Care: None marital status: Current Living Situation: Spouse Feels Safe at Home: Yes Smoking Status: Never smoker Second Hand Exposure: No ; Hx Alcohol Use: No Hx Substance Use: No Seatbelt Use: always Review of Systems The patient's history and physical are limited secondary to Alzheimer's. Physical Exam Vital Signs Vital Signs - 24 hr 02/26/19 22:30 02/26/19 22:33 02/26/19 22:48 Temperature 36.9 C Temperature Source Oral Pulse Rate 126 H Pulse Rate [Apical] 86 Respiratory Rate 22 18 Respiratory Effort / Characteristics Non-Labored Spontaneous Non-Labored Spontaneous Respiratory Depth Normal Normal Blood Pressure 137/88 Blood Pressure Mean 104 Pulse Oximetry 95 95 95 Oxygen Delivery Method Room Air Room Air Room Air Sepsis Recent Fever Within 48 Hours No Sepsis Action Taken by Nursing No Action Required GENERAL: Patient is in no acute distress. HEENT: No acute trauma, normocephalic atraumatic, mucous membranes dry, no nasal congestion, no scleral icterus. NECK: No stridor, no adenopathy, no meningismus, trachea is midline. LUNGS: Clear to auscultation bilaterally, no wheeze, no rhonchi, breath sounds equal. HEART: Tachycardic with irregular rhythm. No murmurs. ABDOMEN: Soft, nontender, bowel sounds positive, no hernias, no peritonitis. EXTREMITIES: Mild bilateral pedal edema. No cyanosis, full range of motion of all the joints without pain or difficulty, no signs for acute trauma. NEUROLOGIC: Awake and alert. No acute motor or sensory deficits, no focal weakness. SKIN: No rash, no jaundice, no diaphoresis. Course Course 2211: Past medical records reviewed. The patient was evaluated in room B12B. A complete history and physical exam was performed. 2318: I discussed the case with the patient and his . The patient's states that she had the same symptoms a few days ago. Administered Medications Discontinued Medications Diltiazem HCl (Cardizem) 15 mg IV NOW STA Stop: 02/26/19 22:15 Last Admin: 02/26/19 22:42 Dose: 15 mg Documented by: [id number] Cosigned by: [id number] Sodium Chloride (Nss 1000ml) 1,000 mls @ 999 mls/hr IV .Q1H1M ANTONIO Stop: 02/26/19 23:15 Last Admin: 02/26/19 22:42 Dose: 999 mls/hr Documented by: [id number] Diltiazem HCl 125 mg/ Dextrose 125 mls @ 0 mls/hr IV .Q0M STA; Protocol Stop: 02/26/19 22:15 Last Admin: 02/26/19 23:10 Dose: 5 mg/hr, 5 mls/hr Documented by: [id number] Cosigned by: [id number] Ondansetron HCl (Zofran) 4 mg IV NOW STA Stop: 02/26/19 22:15 Last Admin: 02/26/19 22:42 Dose: 4 mg Documented by: [id number] Medical Decision Making Differential Diagnosis Differential diagnoses include viral illness, bowel obstruction, colitis, renal or liver failure, UTI, malignancy, pancreatitis, food borne illness, MT, rapid Afib, and others were considered. Medical Records Attestation: I reviewed the patient's medical records. Home Medications Current Medication List: was personally reviewed by me Laboratory Data Attestation: I reviewed the patient's lab results. Result diagrams: 02/26/19 22:23 02/26/19 22:23 Lab Results 02/26/19 02/26/19 02/26/19 Range/Units 22:23 22:23 22:23 WBC 7.65 (4.8-10.8) K/uL RBC 4.81 (4.7-6.1) M/uL Hgb 14.5 (14.0-18.0) g/dL Hct 44.5 (42-52) % MCV 92.5 (80-100) fL MCH 30.1 (25-34) pg MCHC 32.6 (32-36) g/dL RDW Std Deviation 53.2 H (36.4-46.3) fL RDW Coeff of Alex 15.7 H (11.5-14.5) % Plt Count 173 (130-400) K/uL MPV 10.4 (7.4-10.4) fL Immature Gran % (Auto) 0.1 % Neut % (Auto) 92.4 % Lymph % (Auto) 3.3 % [place] % (Auto) 3.5 % Eos % (Auto) 0.4 % Baso % (Auto) 0.3 % Immature Gran # (Auto) 0.01 (0.00-0.02) K/uL Neut # (Auto) 7.07 H (1.4-6.5) K/uL Lymph # (Auto) 0.25 L (1.2-3.4) K/uL [place] # (Auto) 0.27 (0.11-0.59) K/uL Eos # (Auto) 0.03 (0-0.5) K/uL Baso # (Auto) 0.02 (0-0.2) K/uL PT 25.4 H (9.0-12.0) Seconds INR 2.7 H (0.9-1.1) APTT 33.1 H (21.0-31.0) Seconds PTT Ratio 1.2 Sodium 138 (136-145) mmol/L Potassium 4.2 (3.5-5.1) mmol/L Chloride 105 (98-107) mmol/L Carbon Dioxide 26 (21-32) mmol/L Anion Gap 7.0 (3-11) BUN 20 H (7-18) mg/dl Creatinine 1.53 H (0.6-1.4) mg/dl Est Cr Clr Drug Dosing 53.5 ml/min Est GFR ( Amer) 51.9 Est GFR (Non-Af Amer) 44.8 BUN/Creatinine Ratio 12.7 (10-20) Glucose 150 H (70-99) mg/dl Calcium 9.3 (8.5-10.1) mg/dl Magnesium 1.9 (1.8-2.4) mg/dl Total Bilirubin 0.9 (0.2-1) mg/dl AST 16 (15-37) U/L ALT 18 (12-78) U/L Alkaline Phosphatase 180 H (45-117) U/L Troponin I < 0.015 (0-0.045) ng/ml Total Protein 8.2 (6.4-8.2) gm/dl Albumin 3.7 (3.4-5.0) gm/dl Globulin 4.5 H (2.5-4.0) gm/dl Albumin/Globulin Ratio 0.8 L (0.9-2) TSH 2.960 (0.300-4.500) uIu/ml Imaging Data Radiologist's Impression: Radiology results as stated below per my review and the radiologist's interpretation: XR chest 1V portable HISTORY: weakness COMPARISON: Chest 02/13/2018. FINDINGS: There are low lung volumes. The heart remains mildly enlarged. No pleural effusions. No pneumothorax. No evidence for pulmonary edema. No focal lung consolidations to suggest pneumonia. IMPRESSION: No significant change compared to the prior study. No acute process. Stable mild cardiomegaly. ACT 112: Negative or not required by law. Electronically signed by: Terrence Huizar M.D. 02/26/2019 10:33 PM ECG Data Attestation: I personally reviewed and interpreted this ECG as follows: Indication: + vomiting Rate (beats per minute): 121 Rhythm: + atrial fibrillation (rapid) ECG Intervals/blocks: + Normal QT-c (380) ECG ST segments: + T-wave inversions (laterally) and + Nonspecific ST abnormalities; no ST elevation ECG Findings: no PVCs Comparison ECG Date: from (06/15/17) Change: no significant change (other than rate increase) Discharge Plan Visit Data Chief Complaint: Illness Stated Complaint: VOMITING, DIARRHEA ED Provider: Emile Richards Prescriptions Prescriptions: No Action tamsulosin [Flomax] 0.4 mg capsule 0.4 mg PO HS Qty: 90 RF: 3 atorvastatin 40 mg tablet 40 mg PO PM Qty: 30 RF: 5 diltiazem HCl 240 mg capsule,extended release 24hr 240 mg PO DAILY 90 Days Qty: 90 RF: 1 memantine [Namenda] 10 mg tablet 10 mg PO BID Qty: 180 RF: 4 furosemide [Lasix] 20 mg tablet 20 mg PO DAILY Qty: 90 RF: 3 triamcinolone acetonide 0.1 % ointment 1 appln topical DAILY PRNQty: 60 RF: 0 nitroglycerin 0.4 mg tablet, sublingual 0.4 mg SL Q5M PRN (Reason: chest pain) Qty: 25 RF: 0 rivastigmine tartrate 3 mg capsule 3 mg PO QAM Qty: 30 RF: 6 vitamin B complex [B Complex-Vitamin B12] tablet 1 tab PO DAILY 30 Days Qty: 30 RF: 6 aspirin [Aspir-81] 81 mg Tablet,Delayed Release (Dr/Ec) 81 mg PO DAILY RF: 0 metoprolol tartrate 50 mg Tablet 50 mg PO BID RF: 0 cholecalciferol (vitamin D3) [Vitamin D3] 1,000 unit Capsule 1,000 unit PO QPM RF: 0 coenzyme Q10 [CoQ-10] 100 mg Capsule 100 mg PO BID RF: 0 warfarin [Coumadin] 2 mg tablet 2 mg PO .COMPLEX RF: 0 acetaminophen [Tylenol Extra Strength] 500 mg Tablet 1,000 mg PO Q6H PRN (Reason: Pain) RF: 0 The scribe's documentation has been prepared under my direction and personally reviewed by me in its entirety. I confirm that the note above accurately reflects all work, treatment, procedures, and medical decision making performed by me.
[2019-02-27] MEDS: NSS + 20MEQ KCL 20 MEQ/1,000 ML BAG IV SCH ×2 (00:28→10:50)
[2019-02-27] MEDS: METOPROLOL TARTRATE 50 MG TAB PO SCH ×3 (00:28→20:23)
[2019-02-27 01:05] LABS: Influenza A virus by PCR Neg for Influ A (Neg); Influenza B virus by PCR Neg for Influ B (Neg)
--- NOTE | 2019-02-27 01:32 | History & Physical Report ---
Date of Service February 27, 2019 Assessment & Plan (1) Rapid atrial fibrillation: Atrial fibrillation with rapid ventricular response/CAD/hypertension/CHF- Continue aspirin 81 mg daily, diltiazem CD 240 mg daily, metoprolol tartrate 50 mg p.o. twice daily. Hold this evening's warfarin dose, as INR is mildly supratherapeutic at 2.7, and will likely go higher due to acute illness state. Patient was given diltiazem 15 mg IV push while in the ED. Will hold off on diltiazem drip that was about to be started. Symptoms likely brought on by dehydration from GI illness, and should improve with adequate rehydration with IV fluids. Present on Admission?: Yes (2) CAD (coronary artery disease): See above Present on Admission?: Yes (3) CHF (congestive heart failure): See above Present on Admission?: Yes (4) Vomiting and diarrhea: CT of abdomen pelvis was negative. His had similar symptoms very recently, and likely contracted a viral illness from her. Present on Admission?: Yes (5) Dehydration: Present on Admission?: Yes (6) BPH (benign prostatic hyperplasia): Continue tamsulosin 0.4 mg at bedtime. Monitor urine output as patient is rehydrated with IV fluids. Present on Admission?: Yes (7) Dementia: Mild dementia/CVA- Warfarin as noted above. Continue aspirin, rivastigmine and memantine. Present on Admission?: Yes (8) CVA (cerebral vascular accident): See above Present on Admission?: Yes (9) Anticoagulated on Coumadin: As noted above. Present on Admission?: Yes History of Present Illness Chief Complaint: The patient is brought to the emergency department by EMS due to complaint of persistent nausea, vomiting and diarrhea that began several hours prior to arrival Primary Care Provider: Agustin Boyd MD The patient is a 73-year-old male with a past medical history including BARBARA, BPH, CAD, CHF, CVA, dementia, atrial fibrillation, chronic anticoagulation with warfarin and hypertension. He presents to the emergency department with flulike symptoms similar to what his had a few days ago. While in the emergency department, he was found to be in atrial fibrillation with mild RVR with heart rate 126. In the emergency department he was given Cardizem 15 mg IV, and given 1 L of NSS IV fluids. Swab was negative for flu. Allergies Allergy/AdvReac Type Severity Reaction Status Date / Time adhesive Allergy Intermediate BLISTERS Verified 02/26/19 23:49 alcohol Allergy Unknown RUBBING Verified 02/26/19 23:49 ALCOHOL MADE SHORTNESS OF BREATH escitalopram Allergy Unknown UNSURE-DOES Verified 02/26/19 23:49 NOT KNOW lisinopril Allergy Unknown Unknown Verified 02/26/19 23:49 oxycodone Allergy Unknown CONFUSION Verified 02/26/19 23:49 acetaminophen [From Percocet] Allergy Unknown Verified 02/26/19 23:49 Home Medications Home Medications Medication Instructions Recorded Confirmed Type aspirin [Aspir-81] 81 mg PO DAILY 02/13/18 02/26/19 History cholecalciferol (vitamin D3) 1,000 unit PO QPM 02/13/18 02/26/19 History [Vitamin D3] coenzyme Q10 [CoQ-10] 100 mg PO BID 02/13/18 02/26/19 History metoprolol tartrate 50 mg PO BID 02/13/18 02/26/19 History acetaminophen [Tylenol Extra 1,000 mg PO Q6H PRN 04/28/18 02/26/19 History Strength] tamsulosin 0.4 mg capsule 0.4 mg PO HS #90 cap 08/08/18 02/26/19 Rx atorvastatin 40 mg tablet 40 mg PO PM #30 tab 11/08/18 02/26/19 Rx triamcinolone acetonide 0.1 % 1 appln TOPICAL DAILY PRN #60 gm 11/14/18 02/26/19 History topical ointment rivastigmine tartrate 3 mg capsule 3 mg PO QAM #30 cap 12/13/18 02/26/19 Rx diltiazem HCl 240 mg 240 mg PO DAILY 90 Days #90 cap 01/30/19 02/26/19 Rx capsule,extended release 24 hr nitroglycerin 0.4 mg sublingual 0.4 mg SL Q5M PRN #25 tab 01/30/19 02/26/19 History tablet vitamin B complex 1 tab PO DAILY 30 Days #30 tab 01/31/19 02/26/19 Rx warfarin 2 mg tablet 2 mg PO .COMPLEX 01/31/19 02/26/19 History memantine 10 mg tablet 10 mg PO BID #180 tab 02/16/19 02/26/19 Rx furosemide 20 mg tablet 20 mg PO DAILY #90 tab 02/17/19 02/26/19 Rx cyanocobalamin (vitamin B-12) 0 mcg PO DAILY 02/26/19 02/26/19 History Past Med/Surg History Medical History Atrial fibrillation (Chronic) BPH (benign prostatic hyperplasia) CAD (coronary artery disease) CHF (congestive heart failure) Coronary artery disease CVA (cerebral vascular accident) Dementia Hyperlipidemia (Chronic) Hypertension (Chronic) BARBARA (obstructive sleep apnea) Surgical History History of knee replacement History of PTCA Family History Father Stroke Mother Myocardial infarction Social History Preferred Language: Persian Communication Ability: Effective Sample Maker Required: No Beliefs That Will Affect Care: None marital status: Current Living Situation: Spouse Feels Safe at Home: Yes Smoking Status: Never smoker Second Hand Exposure: No ; Hx Alcohol Use: No Hx Substance Use: No Seatbelt Use: always Review of Systems Review of Systems: The patient denies chest pain, palpitations, shortness of breath, dyspnea on exertion, cough, lower extremity swelling, sore throat, sweats, weight change, blood in urine or stool, dysuria, urinary frequency or urgency, lightheadedness, dizziness, headache, loss of consciousness, rash, abnormal bruising or bleeding, imbalance, focal or generalized weakness, numbness or tingling in arms or legs, generalized arthralgias or myalgias, back or neck pain, or night sweats. The review of systems is otherwise negative other than for that already noted above, and at least 10 systems have been reviewed. Physical Exam Physical Exam: The patient is awake, alert and oriented 3, well developed and well nourished, normocephalic and atraumatic, lying in bed and in no acute distress. HEENT--PERRL, EOMI, mucous membranes and oropharynx dry. Neck--supple. No JVD. No bruits. Thyroid normal, trachea midline, no adenopathy. Heart--normal S1 and S2. No murmurs, rubs or gallops. Lungs--clear bilaterally, no respiratory distress, no accessory muscle use. Abdomen--normal bowel sounds and soft. Nontender. Nondistended. Mildly tympanitic Extremities--no cyanosis or clubbing. No edema. There are good distal pulses b/l. Dermatologic--normal skin turgor, normal color, no abnormal lymph nodes, no rash. Neurologic--cranial nerves II through XII grossly intact. Rheumatologic--normal range of motion. Psychiatric--normal affect. Results & Data Vital Signs (Past 12 Hours) Vital Signs Temp Pulse Pulse Resp BP BP Pulse Ox 02/27/19 00:58 105 H 18 124/67 94 02/26/19 22:48 86 18 95 02/26/19 22:33 95 02/26/19 22:30 98.4 F 126 H 22 137/88 95 Laboratory Results Laboratory Results WBC 7.65 K/uL (4.8-10.8) 02/26/19 22:23 RBC 4.81 M/uL (4.7-6.1) 02/26/19 22:23 Hgb 14.5 g/dL (14.0-18.0) 02/26/19 22:23 Hct 44.5 % (42-52) 02/26/19 22:23 MCV 92.5 fL (80-100) 02/26/19 22:23 MCH 30.1 pg (25-34) 02/26/19 22: MCHC 32.6 g/dL (32-36) 02/26/19 22:23 RDW Std Deviation 53.2 fL (36.4-46.3) H 02/26/19 22:23 RDW Coeff of Alex 15.7 % (11.5-14.5) H 02/26/19 22:23 Plt Count 173 K/uL (130-400) 02/26/19 22:23 MPV 10.4 fL (7.4-10.4) 02/26/19 22:23 Immature Gran % (Auto) 0.1 % 02/26/19 22:23 Neut % (Auto) 92.4 % 02/26/19:23 Lymph % (Auto) 3.3 % 02/26/19 22:23 [place] % (Auto) 3.5 % 02/26/19 22:23 Eos % (Auto) 0.4 % 02/26/19 22:23 Baso % (Auto) 0.3 % 02/26/19 22:23 Immature Gran # (Auto) 0.01 K/uL (0.00-0.02) 02/26/19 22:23 Neut # (Auto) 7.07 K/uL (1.4-6.5) H 02/26/19 22:23 Lymph # (Auto) 0.25 K/uL (1.2-3.4) L 02/26/19 22:23 [place] # (Auto) 0.27 K/uL (0.11-0.59) 02/26/19 22:23 Eos # (Auto) 0.03 K/uL (0-0.5) 02/26/19 22:23 Baso # (Auto) 0.02 K/uL (0-0.2) 02/26/19 22:23 PT 25.4 Seconds (9.0-12.0) H 02/26/19 22:23 INR 2.7 (0.9-1.1) H 02/26/19 22:23 APTT 33.1 Seconds (21.0-31.0) H 02/26/19 22:23 PTT Ratio 1.2 02/26/19 22:23 Sodium 138 mmol/L (136-145) 02/26/19 22:23 Potassium 4.2 mmol/L (3.5-5.1) 02/26/19 22:23 Chloride 105 mmol/L (98-107) 02/26/19 22:23 Carbon Dioxide 26 mmol/L (21-32) 02/26/19 22:23 Anion Gap 7.0 (3-11) 02/26/19 22:23 BUN 20 mg/dl (7-18) H 02/26/19 22:23 Creatinine 1.53 mg/dl (0.6-1.4) H 02/26/19 22:23 Est Cr Clr Drug Dosing 53.5 ml/min 02/26/19 22:23 Est GFR ( Amer) 51.9 02/26/19 22:23 Est GFR (Non-Af Amer) 44.8 02/26/19 22:23 BUN/Creatinine Ratio 12.7 (10-20) 02/26/19 22: Glucose 150 mg/dl (70-99) H 02/26/19 22:23 Calcium 9.3 mg/dl (8.5-10.1) 02/26/19 22:23 Magnesium 1.9 mg/dl (1.8-2.4) 02/26/19 22:23 Total Bilirubin 0.9 mg/dl (0.2-1) 02/26/19 22:23 AST 16 U/L (15-37) 02/26/19 22:23 ALT 18 U/L (12-78) 02/26/19 22:23 Alkaline Phosphatase 180 U/L (45-117) H 02/26/19 22:23 Troponin I < 0.015 ng/ml (0-0.045) 02/26/19 22:23 Total Protein 8.2 gm/dl (6.4-8.2) 02/26/19 22:23 Albumin 3.7 gm/dl (3.4-5.0) 02/26/19 22:23 Globulin 4.5 gm/dl (2.5-4.0) H 02/26/19 22:23 Albumin/Globulin Ratio 0.8 (0.9-2) L 02/26/19 22:23 TSH 2.960 uIu/ml (0.300-4.500) 02/26/19 22:23 Influenza Type A (PCR) Neg for Influ A (Neg) 02/27/19 00:25 Influenza Type B (PCR) Neg for Influ B (Neg) 02/27/19 00:25 Diagnostic Findings [facility] [place], [place] [phone] XRay Report Patient: SAMANTHA LENTZ AAdmit Date: 02/26/19 MR#: [id number]: 53 [place] Acct ID:[id number]: Date: 1945[facility] Zip: [facility] [place] [address] Age: 73Location: ED Sex: M Room/Bed: Att Phy:Diagnosis: VOMITING, DIARRHEA Lupe Phy: Agustin Boyd, MDService Date: 02/26/19 Fam Phy:Interpreting Phy: Terrence Huizar MD Admit Phy: Ordering Phy: Emile Richards M.D. cc: ~ XR chest 1V portable HISTORY: weakness COMPARISON: Chest 02/13/2018. FINDINGS: There are low lung volumes. The heart remains mildly enlarged. No pleural effusions. No pneumothorax. No evidence for pulmonary edema. No focal lung consolidations to suggest pneumonia. IMPRESSION: No significant change compared to the prior study. No acute process. Stable mild cardiomegaly. ACT 112: Negative or not required by law. Electronically signed by: Terrence Huizar M.D. 02/26/2019 10:33 PM Dictated: 02/26/192229 Transcribed: 02/26/192229 Code Status & VTE Plan Code Status Full code VTE Prophylaxis Plan VTE Prophylaxis will be ordered: Yes PG Care Time/CCT Total # of Minutes Spent Total Time Spent with Patient: Total time spent is greater than 50% in coordination of care (as documented) at patient's floor/unit and/or counseling patient:
[2019-02-27] MEDS ORDERED: TRIAMCINOLONE ACET 0.1% OINT 15 GM TUBE TOP PRN (01:39)
[2019-02-27] MEDS ORDERED: ONDANSETRON INJ 2 MG/ML 2 ML VIAL IV PRN (01:39)
[2019-02-27] MEDS ORDERED: NITROGLYCERIN SL 0.4 MG/TAB TAB SL PRN (01:39)
[2019-02-27] MEDS ORDERED: NON-FORMULARY MEDICATION (Coenzyme Q10 [Coq-10] 100 MG) PO SCH (01:39)
[2019-02-27] MEDS: MEMANTINE HCL 10 MG TAB PO SCH ×3 (02:09→20:23)
[2019-02-27 06:18] LABS: Appearance Urine Cloudy (Clear); Bacteria Urine Automated Negative (Negative); Bilirubin Urine Negative (Negative); Blood Urine 2+ (Negative); Color Urine Dark Yellow; Epithelial Cell Urine Auto 20-30 /lpf (0-5); Glucose Urine UA Negative (Negative); Ketones Urine Negative (Negative); Leukocyte Esterase Urine Negative (Negative); Nitrite Urine Negative (Negative); Protein Urine Negative (Negative); Specific Gravity Urine 1.019 (1.000-1.030); Urobilinogen Urine Positive (Negative); pH Urine 5.5 (4.5-7.5)
[2019-02-27 06:20] LABS: Basophils # (auto) 0.01 K/uL (0-0.2); Basophils % (auto) 0.2 %; Eosinophils # (auto) 0.02 K/uL (0-0.5); Eosinophils % (auto) 0.3 %; Hematocrit (blood only) 38.9 % (42-52); Hemoglobin 12.7 g/dL (14.0-18.0); Immature Granulocytes # (auto) 0.01 K/uL (0.00-0.02); Immature Granulocytes % (auto) 0.2 %; Lymphocytes # (auto) 0.57 K/uL (1.2-3.4); Lymphocytes % (auto) 9.7 %; Mean Corpuscular Hemoglobin 30.1 pg (25-34); Mean Corpuscular Hgb Conc 32.6 g/dL (32-36); Mean Corpuscular Volume 92.2 fL (80-100); Mean Platelet Volume 10.1 fL (7.4-10.4); Monocytes # (auto) 0.29 K/uL (0.11-0.59); Monocytes % (auto) 4.9 %; Neutrophils % (auto) 84.7 %; Platelet Count 150 K/uL (130-400); RDW Coefficient of Variation 15.9 % (11.5-14.5); RDW Standard Deviation 53.4 fL (36.4-46.3); Red Blood Count 4.22 M/uL (4.7-6.1)
[2019-02-27 06:30] LABS: INR 2.6 (0.9-1.1); Partial Thromboplastin Ratio 1.4; Partial Thromboplastin Time 36.7 Seconds (21.0-31.0)
[2019-02-27 06:31] LABS: Calcium Oxalate Crystals Urine Present (None Prsent)
[2019-02-27 06:51] LABS: Albumin Level 2.9 gm/dl (3.4-5.0); BUN Creatinine Ratio 14.7 (10-20); Calcium 8.5 mg/dl (8.5-10.1); Creatinine Clr Calc Pharmacy 66.7 ml/min; Est GFR (African American) 71.8; Est GFR (Non-African American) 61.9; Magnesium 1.9 mg/dl (1.8-2.4)
[2019-02-27 06:54] LABS: Albumin Globulin Ratio 0.7 (0.9-2); Bilirubin,Total 0.8 mg/dl (0.2-1); Total Protein 6.9 gm/dl (6.4-8.2)
--- NOTE | 2019-02-27 08:44 | CT Scan Report ---
CT abd pelvis wo con CLINICAL HISTORY: 73 years-old Male presenting with nausea vomiting and diarrhea, possible diverticul itis versus colitis, increased creat. TECHNIQUE: Multidetector CT of the abdomen and pelvis was performed without the use of intravenous co ntrast. IV contrast: None. One or more dose lowering techniques were used consistent with the princip les of ALARA (as low as reasonably achievable), including automatic exposure control, mA or kV adjust ment to individual patient size, and/or use of iterative reconstruction. COMPARISON: 10/14/2018. CT DOSE (mGy.cm): The estimated cumulative dose is 1717.63 mGy.cm. FINDINGS: Tab Cutter topogram: Unremarkable. Lung bases: Multichamber enlargement of the heart. Coronary artery calcification. No pericardial or p leural effusion. Mild mosaic attenuation, which may suggest small airways disease orbit due to the ph ase of respiration. Fat-containing left Bochdalek hernia. Liver: Normal morphology. Normal density. Biliary: No gross biliary ductal dilatation allowing for noncontrast technique. Normal gallbladder. Pancreas: Moderate parenchymal atrophy. Spleen: Normal noncontrast appearance. Adrenal glands: Normal noncontrast appearance. Kidneys and ureters: Bilateral nonobstructing nephrolithiasis with calculi measuring up to 7 mm. Scar ring at the upper pole of the left kidney possibly due to prior infection, reflux nephropathy, or inf arct. No nephrolithiasis. Few cysts bilaterally. Ureters nondistended. Bladder: Normal noncontrast appearance. Pelvic organs: Normal noncontrast appearance. Bowel: Normal appendix. No bowel obstruction. No colonic diverticulosis. Small duodenal diverticulum at the level of the pancreatic head. Peritoneal cavity: No free fluid or intraperitoneal gas. Lymph nodes: No gross lymphadenopathy allowing for noncontrast technique. Vasculature: Atherosclerosis of the normal caliber abdominal aorta. Abdominal wall: Gynecomastia. Musculoskeletal: Degenerative changes of the spine. Osteopenia. IMPRESSION: 1. No diverticulosis or diverticulitis. No colitis. 2. Allowing for noncontrast technique, no acute intra-abdominal pathology. 3. Bilateral nonobstructing nephrolithiasis. 4. Cardiomegaly. ACT 112: Negative or not required by law. Electronically signed by: Hay Alvarado M.D. 02/27/2019 8:43 AM
[2019-02-27] MEDS: RIVASTIGMINE TARTRATE 1.5 MG CAP PO SCH (09:22)
[2019-02-27] MEDS: ASPIRIN 81 MG ECTAB PO SCH (09:22)
[2019-02-27] MEDS: CYANOCOBALAMIN 500 MCG TABLET (VITAMIN B-12) PO SCH (09:23)
[2019-02-27] MEDS: dilTIAZem HCL 240 MG CAPCR PO SCH (09:23)
--- NOTE | 2019-02-27 15:27 | Hospitalist Progress Note ---
Date of Service February 27, 2019 Assessment & Plan (1) Acute kidney injury: due to poor oral intake and vomiting never had diarrhea resolved with IV fluids, CR down to 1.1 from 1.5 electrolytes stable can stop fluids, advance diet (2) Rapid atrial fibrillation: Atrial fibrillation with rapid ventricular response tachycardia due to dehydration and low volume Continue aspirin 81 mg daily, diltiazem CD 240 mg daily, metoprolol tartrate 50 mg p.o. twice daily. HR better today with IV fluids continue anticoagulation (3) CAD (coronary artery disease): no chest pain no EKG changes (4) CHF (congestive heart failure): chronic diastolic heart failure examines on the dry side (5) Vomiting and diarrhea: CT of abdomen pelvis was negative. His had similar symptoms very recently, and likely contracted a viral illness from her. symptoms already resolved (6) Dehydration: resolved with IV fluids (7) BPH (benign prostatic hyperplasia): Continue tamsulosin 0.4 mg at bedtime. Monitor urine output as patient is rehydrated with IV fluids. (8) Dementia: Mild dementia/CVA- Warfarin as noted above. Continue aspirin, rivastigmine and memantine. (9) CVA (cerebral vascular accident): See above (10) Anticoagulated on Coumadin: As noted above. Subjective patient sitting up in his chair, feeling well has more energy today, responding well to IV fluids HR in the low 100's on monitor but he will flip into sinus rhythm as well no nausea/vomiting or diarrhea today, no abdominal pain, he is hungry no chest pain, no dyspnea, no fever/chills he reports that his had GI symptoms prior to him getting sick labs show Cr improved to 1.1 from 1.5, electrolytes normal, CBC stable will advance diet, get PT/OT to see him likely home tomorrow Review of Systems Review of Systems: All systems reviewed & are unremarkable except as noted in HPI & below Physical Exam Constitutional: WD/WN, vitals as above Eyes: PERRL, conjunctivae normal, anicteric sclerae ENMT: external ear and nose normal, oropharynx normal Neck: trachea midline, no thyromegaly Respiratory: normal respiratory effort, lungs clear to auscultation Cardiovascular: Rate/Rhythm: regular rate and + irregularly irregular Heart Sounds: normal S1 and normal S2; no murmur Vessels: no JVD Extremities: normal capillary refill; no edema Gastrointestinal (Abdomen): normal bowel sounds, soft, nontender, no hepatosplenomegaly Musculoskeletal: no cyanosis or clubbing, extremities motor strength 5/5 Skin: no rashes, warm and dry Neurologic: patellar DTR's 2+ bilat, sensation intact and PERRL, EOMI, accommodation nl, no face palsy, no dysarthria Psychiatric: A+Ox3, euthymic affect Lymphatic: no cervical or axillary lymphadenopathy Results & Data Vital Signs (Past 12 Hours) Vital Signs Temp Pulse Pulse Pulse Resp BP Pulse Ox 02/27/19 11:20 37.4 C 58 L 16 130/78 95 02/27/19 07:26 36.5 C 87 16 111/72 96 02/27/19 07:00 93 H 02/27/19 04:00 36.8 C 80 18 132/85 94 Laboratory Results Laboratory Results - last 24 hr 02/26/19 02/26/19 02/26/19 22:23 22:23 22:23 WBC 7.65 RBC 4.81 Hgb 14.5 Hct 44.5 MCV 92.5 MCH 30.1 MCHC 32.6 RDW Std Deviation 53.2 H RDW Coeff of Alex 15.7 H Plt Count 173 MPV 10.4 Immature Gran % (Auto) 0.1 Neut % (Auto) 92.4 Lymph % (Auto) 3.3 [place] % (Auto) 3.5 Eos % (Auto) 0.4 Baso % (Auto) 0.3 Immature Gran # (Auto) 0.01 Neut # (Auto) 7.07 H Lymph # (Auto) 0.25 L [place] # (Auto) 0.27 Eos # (Auto) 0.03 Baso # (Auto) 0.02 PT 25.4 H INR 2.7 H APTT 33.1 H PTT Ratio 1.2 Sodium 138 Potassium 4.2 Chloride 105 Carbon Dioxide 26 Anion Gap 7.0 BUN 20 H Creatinine 1.53 H Est Cr Clr Drug Dosing 53.5 Est GFR ( Amer) 51.9 Est GFR (Non-Af Amer) 44.8 BUN/Creatinine Ratio 12.7 Glucose 150 H Calcium 9.3 Magnesium 1.9 Total Bilirubin 0.9 AST 16 ALT 18 Alkaline Phosphatase 180 H Troponin I < 0.015 Total Protein 8.2 Albumin 3.7 Globulin 4.5 H Albumin/Globulin Ratio 0.8 L TSH 2.960 Urine Color Urine Appearance Urine pH Ur Specific [place] Urine Protein Urine Glucose (UA) Urine Ketones Urine Blood Urine Nitrite Urine Bilirubin Urine Urobilinogen Ur Leukocyte Esterase Urine WBC (Auto) Urine RBC (Auto) U Hyaline Cast (Auto) U Epithel Cells (Auto) Urine Bacteria (Auto) Urine Crystals Calcium Oxalate Crystal Influenza Type A (PCR) Influenza Type B (PCR) 02/27/19 02/27/19 02/27/19 00:25 05:50 05:57 WBC 5.90 RBC 4.22 L Hgb 12.7 L Hct 38.9 L MCV 92.2 MCH 30.1 MCHC 32.6 RDW Std Deviation 53.4 H RDW Coeff of Alex 15.9 H Plt Count 150 MPV 10.1 Immature Gran % (Auto) 0.2 Neut % (Auto) 84.7 Lymph % (Auto) 9.7 [place] % (Auto) 4.9 Eos % (Auto) 0.3 Baso % (Auto) 0.2 Immature Gran # (Auto) 0.01 Neut # (Auto) 5.00 Lymph # (Auto) 0.57 L [place] # (Auto) 0.29 Eos # (Auto) 0.02 Baso # (Auto) 0.01 PT INR APTT PTT Ratio Sodium Potassium Chloride Carbon Dioxide Anion Gap BUN Creatinine Est Cr Clr Drug Dosing Est GFR ( Amer) Est GFR (Non-Af Amer) BUN/Creatinine Ratio Glucose Calcium Magnesium Total Bilirubin AST ALT Alkaline Phosphatase Troponin I Total Protein Albumin Globulin Albumin/Globulin Ratio TSH Urine Color Dark Yellow Urine Appearance Cloudy A Urine pH 5.5 Ur Specific [place] 1.019 Urine Protein Negative Urine Glucose (UA) Negative Urine Ketones Negative Urine Blood 2+ H Urine Nitrite Negative Urine Bilirubin Negative Urine Urobilinogen Positive H Ur Leukocyte Esterase Negative Urine WBC (Auto) 1-5 Urine RBC (Auto) 10-30 H U Hyaline Cast (Auto) 1-5 U Epithel Cells (Auto) 20-30 H Urine Bacteria (Auto) Negative Urine Crystals Not Reportable Calcium Oxalate Crystal Present A Influenza Type A (PCR) Neg for Influ A Influenza Type B (PCR) Neg for Influ B 02/27/19 02/27/19 05:57 05:57 WBC RBC Hgb Hct MCV MCH MCHC RDW Std Deviation RDW Coeff of Alex Plt Count MPV Immature Gran % (Auto) Neut % (Auto) Lymph % (Auto) [place] % (Auto) Eos % (Auto) Baso % (Auto) Immature Gran # (Auto) Neut # (Auto) Lymph # (Auto) [place] # (Auto) Eos # (Auto) Baso # (Auto) PT 25.0 H INR 2.6 H APTT 36.7 H PTT Ratio 1.4 Sodium 139 Potassium 4.0 Chloride 111 H Carbon Dioxide 24 Anion Gap 4.0 BUN 17 Creatinine 1.17 D Est Cr Clr Drug Dosing 66.7 Est GFR ( Amer) 71.8 Est GFR (Non-Af Amer) 61.9 BUN/Creatinine Ratio 14.7 Glucose 128 H Calcium 8.5 Magnesium 1.9 Total Bilirubin 0.8 AST 16 ALT 18 Alkaline Phosphatase 146 H Troponin I Total Protein 6.9 Albumin 2.9 L Globulin 4.0 Albumin/Globulin Ratio 0.7 L TSH Urine Color Urine Appearance Urine pH Ur Specific [place] Urine Protein Urine Glucose (UA) Urine Ketones Urine Blood Urine Nitrite Urine Bilirubin Urine Urobilinogen Ur Leukocyte Esterase Urine WBC (Auto) Urine RBC (Auto) U Hyaline Cast (Auto) U Epithel Cells (Auto) Urine Bacteria (Auto) Urine Crystals Calcium Oxalate Crystal Influenza Type A (PCR) Influenza Type B (PCR) Medications Administered Current Inpatient Medications Aspirin (Ecotrin Ectab) 81 mg PO DAILY [facility] Stop: 03/29/19 08:59 Last Admin: 02/27/19 09:22 Dose: 81 mg Documented by: Atorvastatin Calcium (Lipitor) 40 mg PO PM [facility] Stop: 03/29/19 20:59 Cyanocobalamin (Vitamin B-12) 500 mcg PO DAILY [facility] Stop: 03/29/19 08:59 Last Admin: 02/27/19 09:23 Dose: 500 mcg Documented by: Diltiazem HCl (Cardizem Cd) 240 mg PO DAILY [facility] Stop: 03/29/19 08:59 Last Admin: 02/27/19 09:23 Dose: 240 mg Documented by: Memantine (Namenda) 10 mg PO BID [facility] Stop: 03/29/19 01:38 Last Admin: 02/27/19 09:22 Dose: 10 mg Documented by: Metoprolol Tartrate (Lopressor) 50 mg PO BID [facility] Stop: 03/29/19 00:16 Last Admin: 02/27/19 09:22 Dose: 50 mg Documented by: Nitroglycerin (Nitrostat) 0.4 mg SL Q5M PRN PRN Reason: chest pain Stop: 03/29/19 01:38 Ondansetron HCl (Zofran) 4 mg IV Q6H PRN PRN Reason: Nausea Stop: 03/29/19 01:38 Rivastigmine Tartrate (Exelon) 3 mg PO QAM [facility] Stop: 03/29/19 08:59 Last Admin: 02/27/19 09:22 Dose: 3 mg Documented by: Tamsulosin HCl (Flomax) 0.4 mg PO HS [facility] Stop: 03/29/19 20:59 Triamcinolone Acetonide (Kenalog 0.1%) 1 appln TOP DAILY PRN PRN Reason: dry/red Stop: 03/29/19 01:38 Vitamin D (Vitamin D3) 1,000 units PO QPM [facility] Stop: 03/29/19 20:59 Warfarin Sodium (Coumadin) 2 mg PO [id number]@1600 [facility] Stop: 03/29/19 15:59 Warfarin Sodium (Coumadin) 1 mg PO [id number]@1600 [facility] Stop: 03/30/19 15:59 PG Care Time/CCT Total # of Minutes Spent Total Time Spent with Patient: Total time spent is greater than 50% in coordinat ion of care (as documented) at patient's floor/unit and/or counseling patient:
[2019-02-27] MEDS ORDERED: WARFARIN SOD 2 MG TAB PO SCH (16:00)
[2019-02-27] MEDS ORDERED: ATORVASTATIN 40 MG TAB PO SCH (21:00)
[2019-02-27] MEDS ORDERED: TAMSULOSIN HCL 0.4 MG CAP PO SCH (21:00)
[2019-02-27] MEDS ORDERED: CHOLECALCIFEROL 1,000 UNITS TAB PO SCH (21:00)
--- NOTE | 2019-02-27 23:07 | Electrocardiogram Report ---
Test Reason : Blood Pressure : / mmHG Vent. Rate : 121 BPM Atrial Rate : 288 BPM P-R Int : 000 ms QRS Dur : 084 ms QT Int : 268 ms P-R-T Axes : 000 -16 150 degrees QTc Int : 380 ms Poor data quality, interpretation may be adversely affected Atrial fibrillation with rapid ventricular response Voltage criteria for left ventricular hypertrophy Abnormal ECG When compared with ECG of 15-JUN-2017 06:49, Inverted T waves have replaced nonspecific T wave abnormality in Lateral leads Confirmed by Nate Tesfaye ([id number]) on 02/27/2019 11:07:54 PM Referred By: REFERRED SELF Confirmed By:Nate Tesfaye
[2019-02-28 05:52] LABS: Basophils # (auto) 0.02 K/uL (0-0.2); Basophils % (auto) 0.4 %; Eosinophils # (auto) 0.09 K/uL (0-0.5); Eosinophils % (auto) 1.8 %; Hematocrit (blood only) 37.4 % (42-52); Hemoglobin 12.2 g/dL (14.0-18.0); Mean Corpuscular Hemoglobin 30.1 pg (25-34); Mean Corpuscular Hgb Conc 32.6 g/dL (32-36); Mean Corpuscular Volume 92.3 fL (80-100); Mean Platelet Volume 9.9 fL (7.4-10.4); Monocytes # (auto) 0.46 K/uL (0.11-0.59); Monocytes % (auto) 9.2 %; Neutrophils # (auto) 3.54 K/uL (1.4-6.5); Neutrophils % (auto) 70.6 %; Platelet Count 138 K/uL (130-400); RDW Standard Deviation 54.3 fL (36.4-46.3); Red Blood Count 4.05 M/uL (4.7-6.1); White Blood Count 5.01 K/uL (4.8-10.8)
[2019-02-28 06:02] LABS: INR 2.6 (0.9-1.1); Prothrombin Time 24.5 Seconds (9.0-12.0)
[2019-02-28 06:26] LABS: Albumin Level 2.8 gm/dl (3.4-5.0); BUN Creatinine Ratio 13.3 (10-20); Calcium 8.6 mg/dl (8.5-10.1); Creatinine Clr Calc Pharmacy 76.5 ml/min; Est GFR (African American) 88.9; Est GFR (Non-African American) 76.7; Potassium 3.9 mmol/L (3.5-5.1)
[2019-02-28 06:29] LABS: Albumin Globulin Ratio 0.7 (0.9-2); Bilirubin,Total 0.9 mg/dl (0.2-1); Total Protein 6.8 gm/dl (6.4-8.2)
[2019-02-28] MEDS: CYANOCOBALAMIN 500 MCG TABLET (VITAMIN B-12) PO SCH (08:26)
[2019-02-28] MEDS: dilTIAZem HCL 240 MG CAPCR PO SCH (08:26)
[2019-02-28] MEDS: METOPROLOL TARTRATE 50 MG TAB PO SCH (08:26)
[2019-02-28] MEDS: MEMANTINE HCL 10 MG TAB PO SCH (08:26)
[2019-02-28] MEDS: RIVASTIGMINE TARTRATE 1.5 MG CAP PO SCH (08:27)
[2019-02-28] MEDS: ASPIRIN 81 MG ECTAB PO SCH (08:27)
--- NOTE | 2019-02-28 12:43 | Electrocardiogram Report ---
Test Reason : Blood Pressure : / mmHG Vent. Rate : 111 BPM Atrial Rate : 000 BPM P-R Int : 000 ms QRS Dur : 084 ms QT Int : 338 ms P-R-T Axes : 000 -13 155 degrees QTc Int : 459 ms Atrial fibrillation with rapid ventricular response Minimal voltage criteria for LVH, may be normal variant ( R in aVL ) Abnormal ECG When compared with ECG of 26-FEB-2019 22:10, T wave inversion more evident in Anterolateral leads Confirmed by Benito Johnston ([id number]) on 02/28/2019 12:42:39 PM Referred By: REFERRED SELF Confirmed By:Benito Johnston
--- NOTE | 2019-02-28 13:41 | Discharge Summary ---
Date of Service February 28, 2019 Admission HPI Per Admitting Provider The patient is a 73-year-old male with a past medical history including BARBARA, BPH, CAD, CHF, CVA, dementia, atrial fibrillation, chronic anticoagulation with warfarin and hypertension. He presents to the emergency department with flulike symptoms similar to what his had a few days ago. While in the emergency department, he was found to be in atrial fibrillation with mild RVR with heart rate 126. In the emergency department he was given Cardizem 15 mg IV, and given 1 L of NSS IV fluids. Swab was negative for flu. Principal Diagnosis Acute kidney injury Discharge Exam Constitutional WD/WN, vitals as above Eyes PERRL, conjunctivae normal, anicteric sclerae ENMT external ear and nose normal, oropharynx normal Neck trachea midline, no thyromegaly Respiratory normal respiratory effort, lungs clear to auscultation Cardiovascular Rate/Rhythm: regular rate and + irregularly irregular Heart Sounds: normal S1 and normal S2; no murmur Vessels: no JVD Extremities: normal capillary refill; no edema Gastrointestinal (Abdomen) normal bowel sounds, soft, nontender, no hepatosplenomegaly Musculoskeletal Head/Neck/Chest: normocephalic and head atraumatic Extremities: extremities normal to inspection and + abnormal strength (needs assistance with standing, ambulates with walker); no cyanosis and no clubbing Gait: + abnormal gait (requires walker) Skin no rashes, warm and dry Neurologic patellar DTR's 2+ bilat, sensation intact and PERRL, EOMI, accommodation nl, no face palsy, no dysarthria Psychiatric A+Ox3, euthymic affect Lymphatic no cervical or axillary lymphadenopathy Discharge Data Allergies Allergy/AdvReac Type Severity Reaction Status Date / Time adhesive Allergy Intermediate BLISTERS Verified 03/04/19 10:34 alcohol Allergy Unknown RUBBING Verified 03/04/19 10:34 ALCOHOL MADE SHORTNESS OF BREATH escitalopram Allergy Unknown UNSURE-DOES Verified 03/04/19 10:34 NOT KNOW lisinopril Allergy Unknown Unknown Verified 03/04/19 10:34 oxycodone Allergy Unknown CONFUSION Verified 03/04/19 10:34 acetaminophen [From Percocet] Allergy Unknown Verified 03/04/19 10:34 Consultations 02/26/19 23:43 ED Decision to Admit Stat 02/27/19 01:39 Consult Case Management - Discharge Planning Routine Ordered Studies 02/26/19 23:17 CT abd pelvis wo con Urgent Hospital Course (1) Acute kidney injury: due to poor oral intake and vomiting never had diarrhea resolved with IV fluids, CR down to 1.1 from 1.5 at time of admission electrolytes stable fluids stopped 02/27 tolerating diet, drinking more, making adequate urine (2) Rapid atrial fibrillation: Atrial fibrillation with rapid ventricular response tachycardia due to dehydration and low volume Continue aspirin 81 mg daily, diltiazem CD 240 mg daily, metoprolol tartrate 50 mg p.o. twice daily. HR < 100 on monitor, improved with aggressive IV hydration continue anticoagulation (3) CAD (coronary artery disease): no chest pain no EKG changes (4) CHF (congestive heart failure): chronic diastolic heart failure examines on the dry side (5) Vomiting and diarrhea: CT of abdomen pelvis was negative. His had similar symptoms very recently, and likely contracted a viral illness from her. symptoms already resolved (6) Dehydration: resolved with IV fluids (7) BPH (benign prostatic hyperplasia): Continue tamsulosin 0.4 mg at bedtime. Monitor urine output as patient is rehydrated with IV fluids. (8) Dementia: Mild dementia/CVA- Warfarin as noted above. Continue aspirin, rivastigmine and memantine. (9) CVA (cerebral vascular accident): at baseline he requires a lift chair, ambulates with rolling walker reports that they have ramps in the house evaluated by therapy, he was able to ambulate in the hallway with walker discussed with , he is close to baseline CM will arrange home health and home therapy (10) Anticoagulated on Coumadin: As noted above. Total Time Total Time Spent Total Time Spent (In Minutes): 32 minutes Total Time Includes: Examination of the Patient, Discharge Planning, Medication Reconciliation, Communication With Other Providers (discussed plan with physical therapy, rn case manager hospice) and Other (discussion with over the phone) Discharge Plan Discharge Items Patient Disposition: Home - Home Health Services Reason For Visit: N/V/D, DEHYDRATION, AFIB WITH RVR Discharge Diagnosis: Dehydration Nausea/vomiting due to acute viral illness Condition on Discharge: Good Goals: maintain hydration and nutrition improve mobility and strength Activity: Resume your previous activity Non-emergency contact: Primary Care Provider Call non-emergency contact if: you have any medication questions, your symptoms worsen and you have a fever Follow-up/Referrals: Agustin Boyd MD [Primary Care Provider] - Diet: Heart Healthy Addtl Attending Provider Instructions: Medications: no changes Acute viral gastroenteritis, nausea and vomiting, causing dehydration, acute kidney injury on lab work renal function back to baseline with aggressive IV fluids volume status is now normal all due to viral gastroenteritis heart rate was up a little but you have atrial fibrillation at baseline so this would be expected recommend that you get rest, stay well hydrated and well nourished case management will set up home health and home therapy call for follow up with Dr. Boyd in one week Pending Studies at Discharge: No Stand-Alone Forms: My [facility] VPEP, Smoking Cessation Medications and DC Order Prescriptions: Continued tamsulosin [Flomax] 0.4 mg capsule 0.4 mg PO HS Qty: 90 RF: 3 atorvastatin 40 mg tablet 40 mg PO PM Qty: 30 RF: 5 diltiazem HCl 240 mg capsule,extended release 24hr 240 mg PO DAILY 90 Days Qty: 90 RF: 1 memantine [Namenda] 10 mg tablet 10 mg PO BID Qty: 180 RF: 4 furosemide [Lasix] 20 mg tablet 20 mg PO DAILY Qty: 90 RF: 3 triamcinolone acetonide 0.1 % ointment 1 appln topical DAILY PRN (Reason: dry/red) Qty: 60 RF: 0 nitroglycerin 0.4 mg tablet, sublingual 0.4 mg SL Q5M PRN (Reason: chest pain) Qty: 25 RF: 0 vitamin B complex [B Complex-Vitamin B12] tablet 1 tab PO DAILY 30 Days Qty: 30 RF: 6 aspirin [Aspir-81] 81 mg Tablet,Delayed Release (Dr/Ec) 81 mg PO DAILY RF: 0 cholecalciferol (vitamin D3) [Vitamin D3] 1,000 unit Capsule 1,000 unit PO QPM RF: 0 coenzyme Q10 [CoQ-10] 100 mg Capsule 100 mg PO BID RF: 0 acetaminophen [Tylenol Extra Strength] 500 mg Tablet 1,000 mg PO Q6H PRN (Reason: Pain) RF: 0 No Action metoprolol tartrate 50 mg tablet 50 mg PO BID 90 Days Qty: 180 RF: 3 warfarin [Coumadin] 2 mg tablet 2 mg PO .COMPLEX Qty: 90 RF: 3 rivastigmine tartrate 3 mg capsule 3 mg PO QAM Qty: 30 RF: 6 cyanocobalamin (vitamin B-12) 1,000 mcg tablet extended release 1,000 mcg PO DAILY RF: 0 Discharge Orders: Discharge Order (Routine); Ordered 02/28/19 Ordered By: Kye Samaniego Admission Data Admit Date/Time: 02/27/19 00:17 Attending Provider: Kye Samaniego Admit Provider: Buster Montez Primary Care Provider: Agustin Boyd Other Providers: Buster Montez ; [facility] ; [facility] Other Interventions: Discharge Summary Assessment (RN) Last Done: 02/28/19 15:17 DC Date/Time DO NOT enter until pt leaves facility: 02/28/19 17:00
[2019-02-28] MEDS ORDERED: WARFARIN SOD 1 MG TAB PO SCH (16:00)
== END 2019-02-28 17:00 | disposition home health service (06) ==
LOC: ED 21:59 → 2N 21:59 → SUATTDRO 02-27 00:17 → 2N 02-27 01:23

== ENCOUNTER 2019-05-04 09:42 | Inpatient (IN) ==
--- NOTE | 2019-05-04 09:48 | Emergency Department Note ---
History of Present Illness General Chief complaint: Dehydration Stated complaint: dehydration/severe cough Time Seen by Provider: 05/04/19 09:47 History of Present Illness Provider complaint: Cough, altered mental status 73-year-old male presents emergency department for cough and altered mental status. Patient has a history of dementia. Per EMS, the patient has had a cough for the last 2 days. He was afebrile for EMS. He was having labored breathing for EMS. He was hypotensive for EMS. Patient is a poor historian. History of present illness is limited. Home Medications Home Medications Medication Instructions Recorded Confirmed Type aspirin [Aspir-81] 81 mg PO DAILY 02/13/18 05/04/19 History cholecalciferol (vitamin D3) 1,000 unit PO QPM 02/13/18 05/04/19 History [Vitamin D3] coenzyme Q10 [CoQ-10] 100 mg PO BID 02/13/18 05/04/19 History acetaminophen [Tylenol Extra 1,000 mg PO Q6H PRN 04/28/18 05/04/19 History Strength] tamsulosin 0.4 mg capsule 0.4 mg PO HS #90 cap 08/08/18 05/04/19 Rx atorvastatin 40 mg tablet 40 mg PO PM #30 tab 11/08/18 05/04/19 Rx triamcinolone acetonide 0.1 % 1 appln TOPICAL DAILY PRN #60 gm 11/14/18 05/04/19 History topical ointment diltiazem HCl 240 mg 240 mg PO DAILY 90 Days #90 cap 01/30/19 05/04/19 Rx capsule,extended release 24 hr nitroglycerin 0.4 mg sublingual 0.4 mg SL Q5M PRN #25 tab 01/30/19 05/04/19 History tablet vitamin B complex 1 tab PO DAILY 30 Days #30 tab 01/31/19 05/04/19 Rx memantine 10 mg tablet 10 mg PO BID #180 tab 02/16/19 05/04/19 Rx furosemide 20 mg tablet 20 mg PO DAILY #90 tab 02/17/19 05/04/19 Rx cyanocobalamin (vitamin B-12) 1,000 mcg PO DAILY tab 03/04/19 05/04/19 History 1,000 mcg tablet,extended release metoprolol tartrate 50 mg tablet 50 mg PO BID 90 Days #180 tab 03/06/19 05/04/19 Rx rivastigmine tartrate 3 mg capsule 3 mg PO QAM #30 cap 03/06/19 05/04/19 Rx warfarin 2 mg tablet 2 mg PO .COMPLEX #90 tab 03/06/19 05/04/19 Rx Allergies Allergy/AdvReac Type Severity Reaction Status Date / Time adhesive Allergy Intermediate BLISTERS Verified 05/04/19 10:18 alcohol Allergy Unknown RUBBING Verified 05/04/19 10:18 ALCOHOL MADE SHORTNESS OF BREATH escitalopram Allergy Unknown UNSURE-DOES Verified 05/04/19 10:18 NOT KNOW lisinopril Allergy Unknown Unknown Verified 05/04/19 10:18 oxycodone Allergy Unknown CONFUSION Verified 05/04/19 10:18 acetaminophen [From Percocet] Allergy Unknown Verified 05/04/19 10:18 Past Med/Surg History Medical History Atrial fibrillation (Chronic) BPH (benign prostatic hyperplasia) CAD (coronary artery disease) CHF (congestive heart failure) Coronary artery disease CVA (cerebral vascular accident) Dementia (Acute) Hyperlipidemia (Chronic) Hypertension (Chronic) BARBARA (obstructive sleep apnea) Surgical History History of knee replacement History of PTCA Family History Father Stroke Mother Myocardial infarction Aunt Diabetes Family/Other Heart disease Hypertension Nephrolithiasis Denies family history of Prostate cancer Social History Preferred Language: Martiniquais Communication Ability: Effective Visual Impairment: No Limitations Hearing Ability: Normal Quality Assurance Specialist Required: No Beliefs That Will Affect Care: Bahai Bahai Beliefs: MORMON marital status: Current Living Situation: Spouse current occupational status: retired Other Information That Helps Us Care for You: No Feels Safe at Home: Yes Smoking Status: Unknown if ever smoked Hx Alcohol Use: No Hx Substance Use: No Seatbelt Use: always Review of Systems Unobtainable due to cognitive status Physical Exam Vital Signs Vital Signs - 24 hr 05/04/19 09:41 05/04/19 09:55 05/04/19 10:05 Temperature 38.7 C H 38.4 C H Temperature Source Rectal Rectal Pulse Rate 200 H 142 H 153 H Pulse Rate from SpO2 Sensor Pulse Rhythm Regular Respiratory Rate 28 H 44 H 31 H Respiratory Effort / Characteristics Labored Accessory Muscle Use Grunting Short of Breath Spontaneous Respiratory Depth Shallow Respiratory Pattern Rapid/Shallow Tachypnea Tachypnea Blood Pressure 177/103 H Blood Pressure Mean 127 Pulse Oximetry 84 L 99 95 Oxygen Delivery Method Room Air BiPAP Oxygen Flow Rate 15 Fraction of Inspired Oxygen 70 Sepsis Recent Fever Within 48 Hours Yes Sepsis New/Unexplained Change in Mental Status Yes Sepsis Action Taken by Nursing Physician Notified 05/04/19 10:12 05/04/19 10:13 05/04/19 10:29 Temperature Temperature Source Pulse Rate 147 H 165 H 134 H Pulse Rate from SpO2 Sensor Pulse Rhythm Respiratory Rate Respiratory Effort / Characteristics Respiratory Depth Respiratory Pattern Blood Pressure 180/122 H Blood Pressure Mean Pulse Oximetry 97 98 Oxygen Delivery Method Oxygen Flow Rate Fraction of Inspired Oxygen 60 40 Sepsis Recent Fever Within 48 Hours Sepsis New/Unexplained Change in Mental Status Sepsis Action Taken by Nursing 05/04/19 11:00 05/04/19 11:05 Temperature Temperature Source Pulse Rate 153 H 138 H Pulse Rate from SpO2 Sensor 131 H 117 H Pulse Rhythm Respiratory Rate 28 H 31 H Respiratory Effort / Characteristics Respiratory Depth Respiratory Pattern Blood Pressure 105/64 114/80 Blood Pressure Mean 68 86 Pulse Oximetry 98 97 Oxygen Delivery Method BiPAP BiPAP Oxygen Flow Rate Fraction of Inspired Oxygen Sepsis Recent Fever Within 48 Hours Sepsis New/Unexplained Change in Mental Status Sepsis Action Taken by Nursing Physical Exam GENERAL: Patient appears severely distressed. HENT: Exam performed. - Head: Normocephalic and atraumatic. - Right Ear: External ear normal. No mastoid tenderness. - Left Ear: External ear normal. No mastoid tenderness. - Mouth/Throat: The oropharynx is clear and moist. No trismus in the jaw. No dental abscesses or uvula swelling. No oropharyngeal exudate or tonsillar abscesses. EYES: Conjunctivae and EOM are normal. Pupils are equal, round, and reactive to light. Right eye exhibits no discharge. Left eye exhibits no discharge. No scleral icterus. NECK: Supple CV: Tachycardic rate, irregular rhythm, normal heart sounds and intact distal pulses. There is no peripheral edema. Palpable radial pulses bue. PULM/CHEST: Effort normal and breath sounds normal. No respiratory distress. No stridor. He has no wheezes. He has no rales. - Chest Wall: He exhibits no tenderness. ABD: The abdomen is soft. NEURO: Motor and sensation grossly intact. Course Course 0947: The patient was evaluated in room B7. A complete history and physical exam was performed. Patient is a 73-year-old male. EMR reviewed. Patient has a history of A. fib, acute on chronic kidney injury, tubular adenoma of the colon, coronary artery disease, congestive heart failure, stroke, dementia, hyperli pidemia, hypertension, and is on Coumadin. Administered Medications Diltiazem HCl 125 mg/ Dextrose 125 mls @ 5 mls/hr IV .Q24H ANTONIO; Protocol Stop: 06/03/19 10:29 Last Titration: 05/04/19 11:22 Dose: 5 mg/hr, 5 mls/hr Documented by: [id number] Cosigned by: [id number] Titration: 05/04/19 10:52 Dose: 7.5 mg/hr, 7.5 mls/hr Documented by: [id number] Cosigned by: [id number] Admin: 05/04/19 10:42 Dose: 5 mg/hr, 5 mls/hr Documented by: [id number] Cosigned by: [id number] Discontinued Medications Acetaminophen (Ofirmev) 1,000 mg in 100 mls @ 400 mls/hr IV NOW STA Stop: 05/04/19 10:09 Last Infusion: 05/04/19 10:29 Dose: 0 mls/hr Documented by: [id number] Admin: 05/04/19 10:14 Dose: 400 mls/hr Documented by: [id number] Cefepime HCl (Maxipime) 2,000 mg in 20 mls @ 5 mls/min IV NOW STA; Protocol Stop: 05/04/19 09:59 Last Admin: 05/04/19 10:08 Dose: 5 mls/min Documented by: [id number] Sodium Chloride (Nss 1000ml) 1,000 mls @ 999 mls/hr IV .Q1H1M ONE Stop: 05/04/19 10:57 Last Infusion: 05/04/19 11:11 Dose: 0 mls/hr Documented by: [id number] Admin: 05/04/19 10:11 Dose: 999 mls/hr Documented by: [id number] Vancomycin HCl 2,000 mg/ (Sodium Chloride) 540 mls @ 200 mls/hr IV NOW STA Stop: 05/04/19 12:40 Last Admin: 05/04/19 10:10 Dose: 200 mls/hr Documented by: [id number] Lorazepam (Ativan) 0.5 mg in 1 mls @ 1 mls/min IV NOW STA Stop: 05/04/19 10:04 Last Admin: 05/04/19 10:13 Dose: 1 mls/min Documented by: [id number] Lorazepam (Ativan) Confirm Administered Dose 2 mg .ROUTE .STK-MED ONE Stop: 05/04/19 10:06 Last Admin: 05/04/19 10:13 Dose: Not Given Documented by: [id number] Metoprolol Tartrate (Lopressor) 2.5 mg IV NOW STA Stop: 05/04/19 10:02 Last Admin: 05/04/19 10:12 Dose: 2.5 mg Documented by: [id number] Miscellaneous () Confirm Administered Dose 1 ea .ROUTE .STK-MED ONE Stop: 05/04/19 10:07 Last Admin: 05/04/19 11:11 Dose: Not Given Documented by: [id number] Miscellaneous () 1 ea N/A NOW STA Stop: 05/04/19 10:20 Last Admin: 05/04/19 11:11 Dose: Not Given Documented by: [id number] Ondansetron HCl (Zofran) 4 mg IV NOW STA Stop: 05/04/19 10:06 Last Admin: 05/04/19 10:13 Dose: 4 mg Documented by: [id number] Ondansetron HCl (Zofran) Confirm Administered Dose 4 mg .ROUTE .STK-MED ONE Stop: 05/04/19 10:10 Last Admin: 05/04/19 10:13 Dose: Not Given Documented by: [id number] Critical Care Time Critical Care Time: Yes Total Critical Care Time: 108 I have personally spent greater than 108 minutes of critical care time in the direct management of this patient. This includes bedside care, interpretation o f diagnostic studies, and testing, discussion with consultants, patient, and family members, and other required patient management activities. This 108 minutes is in excess of all separately billable procedures. Medical Decision Making Laboratory Data Result diagrams: 05/04/19 10:05 05/04/19 10:05 Lab Results 05/04/19 05/04/19 05/04/19 Range/Units 10:00 10:00 10:05 WBC 9.48 (4.8-10.8) K/uL RBC 4.51 L (4.7-6.1) M/uL Hgb 13.6 L (14.0-18.0) g/dL POC Hgb (14.0-18.0) g/dl Hct 40.8 L (42-52) % POC Hct (42-52) % MCV 90.5 (80-100) fL MCH 30.2 (25-34) pg MCHC 33.3 (32-36) g/dL RDW Std Deviation 53.2 H (36.4-46.3) fL RDW Coeff of Alex 16.0 H (11.5-14.5) % Plt Count 161 (130-400) K/uL MPV 9.6 (7.4-10.4) fL Immature Gran % (Auto) 0.5 % Neut % (Auto) 82.6 % Lymph % (Auto) 11.0 % [place] % (Auto) 5.0 % Eos % (Auto) 0.5 % Baso % (Auto) 0.4 % Immature Gran # (Auto) 0.05 H (0.00-0.02) K/uL Neut # (Auto) 7.83 H (1.4-6.5) K/uL Lymph # (Auto) 1.04 L (1.2-3.4) K/uL [place] # (Auto) 0.47 (0.11-0.59) K/uL Eos # (Auto) 0.05 (0-0.5) K/uL Baso # (Auto) 0.04 (0-0.2) K/uL PT (9.0-12.0) Seconds INR (0.9-1.1) APTT (21.0-31.0) Seconds PTT Ratio VBG pH (7.36-7.41) VBG pCO2 (38-50) mmHg VBG pO2 mmHg VBG HCO3 mmol/L VBG O2 Saturation % VBG Base Excess mEq/L Barometric Pressure mm/Hg POC Sodium (135-144) mmol/L Sodium (136-145) mmol/L POC Potassium (3.3-5.0) mmol/L Potassium (3.5-5.1) mmol/L POC Chloride (101-112) mmol/L Chloride (98-107) mmol/L Carbon Dioxide (21-32) mmol/L POC Total CO2 (24-31) mEq/l Anion Gap (3-11) POC Anion Gap (16-25) mmol/L POC BUN (7-18) mg/dl BUN (7-18) mg/dl Creatinine (0.6-1.4) mg/dl POC Creatinine (0.6-1.3) mg/dl Est Cr Clr Drug Dosing ml/min Est GFR ( Amer) Est GFR (Non-Af Amer) BUN/Creatinine Ratio (10-20) Glucose (70-99) mg/dl POC Glucose (other) (70-99) mg/dl Lactate (0.4-2.0) mmol/L Calcium (8.5-10.1) mg/dl POC Ioniz Calcium Gaetano (1.12-1.32) mmol/l Magnesium (1.8-2.4) mg/dl Total Bilirubin (0.2-1) mg/dl AST (15-37) U/L ALT (12-78) U/L Alkaline Phosphatase (45-117) U/L Troponin I (0-0.045) ng/ml Total Protein (6.4-8.2) gm/dl Albumin (3.4-5.0) gm/dl Globulin (2.5-4.0) gm/dl Albumin/Globulin Ratio (0.9-2) Procalcitonin (0-0.5) ng/ml Urine Color Yellow Urine Appearance Clear (Clear) Urine pH 7.5 (4.5-7.5) Ur Specific [place] 1.015 (1.000-1.030) Urine Protein 3+ H (Negative) Urine Glucose (UA) Negative (Negative) Urine Ketones Negative (Negative) Urine Blood 3+ H (Negative) Urine Nitrite Negative (Negative) Urine Bilirubin Negative (Negative) Urine Urobilinogen Negative (Negative) Ur Leukocyte Esterase Negative (Negative) Urine WBC (Auto) 1-5 (0-5) /hpf Urine RBC (Auto) >30 H (0-4) /hpf U Hyaline Cast (Auto) 1-5 (0-5) /lpf U Epithel Cells (Auto) >30 H (0-5) /lpf Urine Bacteria (Auto) 1+ H (Negative) Ur Renal Epithelial Cell Not Reportable Influenza Type A (PCR) Neg for Influ A (Neg) Influenza Type B (PCR) Neg for Influ B (Neg) 05/04/19 05/04/19 05/04/19 Range/Units 10:05 10:05 10:05 WBC (4.8-10.8) K/uL RBC (4.7-6.1) M/uL Hgb (14.0-18.0) g/dL POC Hgb (14.0-18.0) g/dl Hct (42-52) % POC Hct (42-52) % MCV (80-100) fL MCH (25-34) pg MCHC (32-36) g/dL RDW Std Deviation (36.4-46.3) fL RDW Coeff of Alex (11.5-14.5) % Plt Count (130-400) K/uL MPV (7.4-10.4) fL Immature Gran % (Auto) % Neut % (Auto) % Lymph % (Auto) % [place] % (Auto) % Eos % (Auto) % Baso % (Auto) % Immature Gran # (Auto) (0.00-0.02) K/uL Neut # (Auto) (1.4-6.5) K/uL Lymph # (Auto) (1.2-3.4) K/uL [place] # (Auto) (0.11-0.59) K/uL Eos # (Auto) (0-0.5) K/uL Baso # (Auto) (0-0.2) K/uL PT 26.1 H (9.0-12.0) Seconds INR 2.6 H (0.9-1.1) APTT 31.8 H (21.0-31.0) Seconds PTT Ratio 1.1 VBG pH (7.36-7.41) VBG pCO2 (38-50) mmHg VBG pO2 mmHg VBG HCO3 mmol/L VBG O2 Saturation % VBG Base Excess mEq/L Barometric Pressure mm/Hg POC Sodium (135-144) mmol/L Sodium 134 L (136-145) mmol/L POC Potassium (3.3-5.0) mmol/L Potassium 3.7 (3.5-5.1) mmol/L POC Chloride (101-112) mmol/L Chloride 102 (98-107) mmol/L Carbon Dioxide 24 (21-32) mmol/L POC Total CO2 (24-31) mEq/l Anion Gap 7.0 (3-11) POC Anion Gap (16-25) mmol/L POC BUN (7-18) mg/dl BUN 13 (7-18) mg/dl Creatinine 1.16 (0.6-1.4) mg/dl POC Creatinine (0.6-1.3) mg/dl Est Cr Clr Drug Dosing 65.9 ml/min Est GFR ( Amer) 72.5 Est GFR (Non-Af Amer) 62.6 BUN/Creatinine Ratio 11.0 (10-20) Glucose 169 H (70-99) mg/dl POC Glucose (other) (70-99) mg/dl Lactate 2.0 (0.4-2.0) mmol/L Calcium 8.7 (8.5-10.1) mg/dl POC Ioniz Calcium Gaetano (1.12-1.32) mmol/l Magnesium 1.8 (1.8-2.4) mg/dl Total Bilirubin 1.0 (0.2-1) mg/dl AST 23 (15-37) U/L ALT 20 (12-78) U/L Alkaline Phosphatase 184 H (45-117) U/L Troponin I < 0.015 (0-0.045) ng/ml Total Protein 8.2 (6.4-8.2) gm/dl Albumin 3.6 (3.4-5.0) gm/dl Globulin 4.6 H (2.5-4.0) gm/dl Albumin/Globulin Ratio 0.8 L (0.9-2) Procalcitonin (0-0.5) ng/ml Urine Color Urine Appearance (Clear) Urine pH (4.5-7.5) Ur Specific [place] (1.000-1.030) Urine Protein (Negative) Urine Glucose (UA) (Negative) Urine Ketones (Negative) Urine Blood (Negative) Urine Nitrite (Negative) Urine Bilirubin (Negative) Urine Urobilinogen (Negative) Ur Leukocyte Esterase (Negative) Urine WBC (Auto) (0-5) /hpf Urine RBC (Auto) (0-4) /hpf U Hyaline Cast (Auto) (0-5) /lpf U Epithel Cells (Auto) (0-5) /lpf Urine Bacteria (Auto) (Negative) Ur Renal Epithelial Cell Influenza Type A (PCR) (Neg) Influenza Type B (PCR) (Neg) 05/04/19 05/04/19 05/04/19 Range/Units 10:05 10:05 10:23 WBC (4.8-10.8) K/uL RBC (4.7-6.1) M/uL Hgb (14.0-18.0) g/dL POC Hgb 13.9 L (14.0-18.0) g/dl Hct (42-52) % POC Hct 41 L (42-52) % MCV (80-100) fL MCH (25-34) pg MCHC (32-36) g/dL RDW Std Deviation (36.4-46.3) fL RDW Coeff of Alex (11.5-14.5) % Plt Count (130-400) K/uL MPV (7.4-10.4) fL Immature Gran % (Auto) % Neut % (Auto) % Lymph % (Auto) % [place] % (Auto) % Eos % (Auto) % Baso % (Auto) % Immature Gran # (Auto) (0.00-0.02) K/uL Neut # (Auto) (1.4-6.5) K/uL Lymph # (Auto) (1.2-3.4) K/uL [place] # (Auto) (0.11-0.59) K/uL Eos # (Auto) (0-0.5) K/uL Baso # (Auto) (0-0.2) K/uL PT (9.0-12.0) Seconds INR (0.9-1.1) APTT (21.0-31.0) Seconds PTT Ratio VBG pH 7.30 L (7.36-7.41) VBG pCO2 51 H (38-50) mmHg VBG pO2 29 mmHg VBG HCO3 24 mmol/L VBG O2 Saturation < 60.0 % VBG Base Excess -2.7 mEq/L Barometric Pressure 743.9 mm/Hg POC Sodium 135 (135-144) mmol/L Sodium (136-145) mmol/L POC Potassium 3.7 (3.3-5.0) mmol/L Potassium (3.5-5.1) mmol/L POC Chloride 101 (101-112) mmol/L Chloride (98-107) mmol/L Carbon Dioxide (21-32) mmol/L POC Total CO2 24 (24-31) mEq/l Anion Gap (3-11) POC Anion Gap 15.0 L (16-25) mmol/L POC BUN 12 (7-18) mg/dl BUN (7-18) mg/dl Creatinine (0.6-1.4) mg/dl POC Creatinine 1.0 (0.6-1.3) mg/dl Est Cr Clr Drug Dosing ml/min Est GFR ( Amer) Est GFR (Non-Af Amer) BUN/Creatinine Ratio (10-20) Glucose (70-99) mg/dl POC Glucose (other) 172 H (70-99) mg/dl Lactate (0.4-2.0) mmol/L Calcium (8.5-10.1) mg/dl POC Ioniz Calcium [place] 1.08 L (1.12-1.32) mmol/l Magnesium (1.8-2.4) mg/dl Total Bilirubin (0.2-1) mg/dl AST (15-37) U/L ALT (12-78) U/L Alkaline Phosphatase (45-117) U/L Troponin I (0-0.045) ng/ml Total Protein (6.4-8.2) gm/dl Albumin (3.4-5.0) gm/dl Globulin (2.5-4.0) gm/dl Albumin/Globulin Ratio (0.9-2) Procalcitonin 0.07 (0-0.5) ng/ml Urine Color Urine Appearance (Clear) Urine pH (4.5-7.5) Ur Specific [place] (1.000-1.030) Urine Protein (Negative) Urine Glucose (UA) (Negative) Urine Ketones (Negative) Urine Blood (Negative) Urine Nitrite (Negative) Urine Bilirubin (Negative) Urine Urobilinogen (Negative) Ur Leukocyte Esterase (Negative) Urine WBC (Auto) (0-5) /hpf Urine RBC (Auto) (0-4) /hpf U Hyaline Cast (Auto) (0-5) /lpf U Epithel Cells (Auto) (0-5) /lpf Urine Bacteria (Auto) (Negative) Ur Renal Epithelial Cell Influenza Type A (PCR) (Neg) Influenza Type B (PCR) (Neg) Imaging Data Radiologist's Impression: XR chest 1V portable CLINICAL HISTORY: SEPSIS COMPARISON STUDY: 02/26/2019 FINDINGS: The heart is enlarged. The study is rotated. There is elevation of interstitium, likely secondary to mild congestive failure/fluid overload. Interstitial inflammatory processes could appear similar. There are no large pleural effusions.[ IMPRESSION: Cardiomegaly and radiographic findings consistent with mild pu lmonary vascular congestion/fluid overload. No lobar consolidation. ACT 112: Negative or not required by law. Electronically signed by: Rayshawn Jones M.D. 05/04/2019 10:31 AM Dictated: 05/04/19 1030 Transcribed: 05/04/19 1030 ECG Data Indication: + altered mental status Rate (beats per minute): 180 Rhythm: + atrial fibrillation ECG Intervals/blocks: + Normal QRS and + Normal QT-c Additional Comments: Atrial fibrillation with rate of 180. QRS and QTc intervals are within normal limits. No ST elevation mild ST depression in leads V3 through V6. MDM Narrative The patient was evaluated in room B7. A complete history and physical exam was performed. Patient is a 73-year-old male. EMR reviewed. Patient has a history of A. fib, acute on chronic kidney injury, tubular adenoma of the colon, coronary artery disease, congestive heart failure, stroke, dementia, hyperlip idemia, hypertension, and is on Coumadin. Patient was initially seen in room B7. On arrival in the emergency department the patient was tachycardic with a heart rate between 180 and 210, irregular rhythm on the quality assurance monitor. Patient was hypoxic on room air 84%. Patient was disoriented and confused. Patient was immediately moved to resuscitation bay room B1. He was replaced on the quality assurance monitor. He was found to have a rectal temperature greater than 38 C. Code sepsis was called. Sepsis order set was initiated. Patient received approximately 900 cc of isotonic fluid from EMS. Antipyretic and fluid bolus ordered for the patient. Broad-spectrum antibiotics cefepime and vancomycin were also ordered for the patient given his fever, tachycardia, and hypoxia. Bedside chest x-ray was viewed by me and showed the patient be fluid overloaded. The patient's blood pressure was stable and therefore the IV fluids were turned down. Patient was extremely agitated she was given Ativan 0.5 mg IV push. Patient was still having respiratory distress with low oxygen saturations so he was placed on BiPAP. Patient's oxygen saturation and respiratory rate improved on BiPAP. arrived shortly after move to the resuscitation bay and states that the patient has had a cough for the last 2 days. She states she called EMS twice last night to bring the patient to the hospital however they stated that the patient did not need to go to the hospital so he was not transported, this is per the . states that the patient has not been taking his home medications for at least the last 24 hours due to his illness. Patient is supposed be on Cardizem 240 mg extended release as well as metoprolol 50 mg twice daily. She states that she he has not taken these. states that the patient is a full code. also states that the patient has normal baseline mental status with Alzheimer's dementia. states she is concerned about COVID 19 for the patient. Per the , the patient has no recent travel to [place], [place], [place], [place], [place], [facility], or [facility]. Patient has no exposure or contact with anyone who has tested positive for COVID 19 per the . Given this history, the patient atrial fibrillation RVR is thought to be due to his medication noncompliance more so than his sepsis. Patient was given metoprolol bolus 2.5 mg IV push x2 which improved his heart rate. The patient remained in A. fib RVR although his ventricular rate was improved after receiving the metoprolol his blood pressure also improved. Given the thought that he is also suffering from sepsis, we did not want to decrease his inotropic activity too much. Therefore no Cardizem bolus or repeat metoprolol boluses were given instead the patient was started on Cardizem drip at a low rate. Patient was also started on IV fluids maintenance normal saline 100 cc/h. Hospitalist team Dr. Lorenzo was made aware of the patient as well as ICU team Dr. Zhong who agreed to admit the patient to the ICU. Patient was continued on IV fluids and Cardizem drip. Patient's ABG at bedside which was done after the patient was on the BiPAP for less than 30 minutes showed a PCO2 that was less than 60. White count was normal. Influenza was negative. Impression & Plan Hypoxia, Anticoagulated on Coumadin, Hypertension, Atrial fibrillation with RVR, Dementia, Sepsis Discharge Plan Visit Data *Final* Discharge Date/Time: 05/04/19 11:35 Chief Complaint: Dehydration Stated Complaint: dehydration/severe cough ED Provider: Bandar Vasques Discharge Problem: Hypoxia, Anticoagulated on Coumadin, Hypertension, Atrial fibrillation with RVR, Dementia, Sepsis Patient Disposition: Admitted As Inpatient Discharge Instructions Interventions: ED Discharge Assessment Last Done: 05/04/19 11:35 Discharge Problem: Hypertension Qualifiers: Hypertension type: unspecified Qualified Code(s): I10 - Essential (primary) hyp ertension Dementia Qualifiers: Dementia type: unspecified type Dementia behavioral disturbance: without behavioral disturbance Qualified Code(s): F03.90 - Unspecified dementia without behavioral disturbance Sepsis Qualifiers: Sepsis type: sepsis due to unspecified organism Sepsis acute organ dysfunction status: unspecified Qualified Code(s): A41.9 - Sepsis, unspecified organism
[2019-05-04] MEDS ORDERED: ACETAMINOPHEN 1,000 MG/100 ML VIAL IV STA ×2 (09:55→23:31)
[2019-05-04] MEDS ORDERED: CEFEPIME 2,000 MG/20 ML VIAL IV STA (09:56)
[2019-05-04] MEDS ORDERED: SODIUM CHLORIDE 0.9% 1000ML 1,000 ML IV ONE (09:57)
[2019-05-04] MEDS ORDERED: VANCOMYCIN HCL 2,000 MG in SODIUM CHLORIDE 0.9% 500 ML IV STA (09:59)
[2019-05-04] MEDS ORDERED: METOPROLOL TARTRATE 1 MG/ML VIAL IV STA ×3 (10:01→23:31)
[2019-05-04] MEDS ORDERED: LORazepam 0.5 MG/1 ML VIAL IV STA ×2 (10:03→22:19)
[2019-05-04] MEDS ORDERED: LORazepam 2 MG/4 ML VIAL ONE (10:05)
[2019-05-04] MEDS ORDERED: ONDANSETRON INJ 2 MG/ML 2 ML VIAL IV STA (10:05)
[2019-05-04] MEDS ORDERED: RAPID SEQUENCE INDUCTION BAG ONE (10:06)
[2019-05-04] MEDS ORDERED: ONDANSETRON INJ 2 MG/ML 2 ML VIAL ONE (10:09)
[2019-05-04 10:14] LABS: Basophils # (auto) 0.04 K/uL (0-0.2); Basophils % (auto) 0.4 %; Eosinophils # (auto) 0.05 K/uL (0-0.5); Eosinophils % (auto) 0.5 %; Hematocrit (blood only) 40.8 % (42-52); Hemoglobin 13.6 g/dL (14.0-18.0); Immature Granulocytes # (auto) 0.05 K/uL (0.00-0.02); Immature Granulocytes % (auto) 0.5 %; Lymphocytes # (auto) 1.04 K/uL (1.2-3.4); Mean Corpuscular Hemoglobin 30.2 pg (25-34); Mean Corpuscular Hgb Conc 33.3 g/dL (32-36); Mean Corpuscular Volume 90.5 fL (80-100); Mean Platelet Volume 9.6 fL (7.4-10.4); Monocytes # (auto) 0.47 K/uL (0.11-0.59); Neutrophils # (auto) 7.83 K/uL (1.4-6.5); Neutrophils % (auto) 82.6 %; Platelet Count 161 K/uL (130-400); RDW Standard Deviation 53.2 fL (36.4-46.3); Red Blood Count 4.51 M/uL (4.7-6.1); White Blood Count 9.48 K/uL (4.8-10.8)
[2019-05-04 10:14] LABS: Appearance Urine Clear (Clear); Bilirubin Urine Negative (Negative); Blood Urine 3+ (Negative); Color Urine Yellow; Epithelial Cell Urine Auto >30 /lpf (0-5); Glucose Urine UA Negative (Negative); Ketones Urine Negative (Negative); Leukocyte Esterase Urine Negative (Negative); Nitrite Urine Negative (Negative); RBC Urine Automated >30 /hpf (0-4); Specific Gravity Urine 1.015 (1.000-1.030); Urobilinogen Urine Negative (Negative); pH Urine 7.5 (4.5-7.5)
[2019-05-04 10:17] LABS: iSTAT Hemoglobin 13.9 g/dl (14.0-18.0); iSTAT Ionized Calcium 1.08 mmol/l (1.12-1.32); iSTAT Potassium 3.7 mmol/L (3.3-5.0)
[2019-05-04] MEDS ORDERED: STAT IV Infusion **Titration per Protocol STA (10:19)
[2019-05-04 10:24] LABS: INR 2.6 (0.9-1.1); Partial Thromboplastin Ratio 1.1; Partial Thromboplastin Time 31.8 Seconds (21.0-31.0); Prothrombin Time 26.1 Seconds (9.0-12.0)
[2019-05-04 10:25] LABS: Protein Urine 3+ (Negative)
[2019-05-04 10:26] LABS: Sulfosalicylic Acid Urine Positive (Negative)
[2019-05-04] MEDS ORDERED: dilTIAZem HCL 125 MG in DEXTROSE 5% 100 ML IV SCH (10:30)
--- NOTE | 2019-05-04 10:32 | XRay Report ---
XR chest 1V portable CLINICAL HISTORY: SEPSIS COMPARISON STUDY: 02/26/2019 FINDINGS: The heart is enlarged. The study is rotated. There is elevation of interstitium, likely sec ondary to mild congestive failure/fluid overload. Interstitial inflammatory processes could appear si milar. There are no large pleural effusions.[ IMPRESSION: Cardiomegaly and radiographic findings consistent with mild pulmonary vascular congestion /fluid overload. No lobar consolidation. ACT 112: Negative or not required by law. Electronically signed by: Rayshawn Jones M.D. 05/04/2019 10:31 AM
[2019-05-04 10:34] LABS: Bacteria Urine Automated 1+ (Negative)
[2019-05-04 10:37] LABS: Alanine Aminotransferase 20 U/L (12-78); Albumin Level 3.6 gm/dl (3.4-5.0); Aspartate Aminotransferase 23 U/L (15-37); Blood Urea Nitrogen 13 mg/dl (7-18); Calcium 8.7 mg/dl (8.5-10.1); Carbon Dioxide 24 mmol/L (21-32); Chloride 102 mmol/L (98-107); Creatinine Clr Calc Pharmacy 65.9 ml/min; Est GFR (African American) 72.5; Est GFR (Non-African American) 62.6; Glucose 169 mg/dl (70-99); Magnesium 1.8 mg/dl (1.8-2.4); Potassium 3.7 mmol/L (3.5-5.1); Sodium 134 mmol/L (136-145)
[2019-05-04 10:41] LABS: Albumin Globulin Ratio 0.8 (0.9-2); Alkaline Phosphatase 184 U/L (45-117); Globulin 4.6 gm/dl (2.5-4.0); Total Protein 8.2 gm/dl (6.4-8.2); Troponin I < 0.015 ng/ml (0-0.045)
[2019-05-04] MEDS: dilTIAZem HCL 125 MG in DEXTROSE 5% 100 ML IV SCH ×2 (10:42→23:47)
[2019-05-04 10:44] LABS: Influenza A virus by PCR Neg for Influ A (Neg); Influenza B virus by PCR Neg for Influ B (Neg)
--- NOTE | 2019-05-04 10:49 | History & Physical Report ---
Date of Service May 04, 2019 Assessment & Plan (1) Sepsis: Patient be admitted to the ICU with sepsis. Unclear source, consider pneumonia despite x-ray read. Patient was given broad-spectrum antibiotics with cefepime and vancomycin in the emergency room. I will continue these until bloo d and sputum cultures become available. Continue BiPAP support, repeat ABG when able. Consider CT scan of the chest, defer to intensive care service. (2) Rapid atrial fibrillation: Patient's heart rate is improved somewhat with treatment of infection, Cardizem was being initiated by the ER physician just after my visit. Patient was also given a single dose of metoprolol 5 mg IV with limited effect. Patient is typically Cardizem CD 240 mg daily and Lopressor 50 mg twice daily as an outpatient, will need to be held until patient is stable back on POs. Patient is also on Coumadin 2 mg daily. He is adequately anticoagulated, will need to hold oral medications. Continue to follow INR until extremely consider alternative anticoagulation. (3) Dementia: Patient is on rivastigmine and memanttine as an outpatient. Although he is lethargic now the reports periods of confusion and agitation. Patient was given Ativan 0.5 mg IV x1 for agitation on arrival, may require further sedation depending level of consciousness. Will defer to project builder for this. (4) Hypertension: Blood pressure much improved with treatment. Cardizem as noted above. Consider metoprolol as well. (5) CHF (congestive heart failure): Unclear type of CHF from records. Last echo from 12/28/2017 shows normal LV with an EF of 60%, consier chronic diastolic failure. Patient is Lasix 20 mg PO daily which will need to be held. Consider repeat echo. History of Present Illness Primary Care Provider: Agustin Boyd MD This is a 73-year-old male with past medical history of chronic atrial fibrillation on warfarin, hypercholesterolemia, senile dementia, CAD, CHF the presents today with acute shortness of breath and hypoxia. Patient is unable to provide any history but is at bedside. tells me that the patient has had a significant cough over the past 2 days. She is also ill and had similar symptoms of a dry cough. Patient does have periods of confusion at baseline she felt that these may have been somewhat worse. Overnight, the patient seemed to get more confused and had a hacking cough. She tells me that she called EMS 3 times for the patient. The first was due to some shortness of breath. She notes that he was found to be hypoxic but was not using CPAP as he had been previously directed. He is often noncompliant with this. EMS found that when he took deep breaths with his CPAP on his O2 sats returned to normal and they decided not to transfer him to the hospital at that time. On the second occasion, the patient was confused and trying to climb out of bed. He slid to the floor she was not able to pick him up. EMS was able to transfer back to bed. On the third occasion the patient seemed getting worse in terms of shortness of breath and confusion, at that time she called EMS a third time and he was subsequently transported to the hospital. Of note, reports no recent travel. She tells me that her young grandson has been sick with URI symptoms. On presentation, he was found to be in atrial fibrillation with a rate of 200. He was also febrile to 38.7 C. His O2 sat was only 84% and he was started on BiPAP. Vitals are somewhat improved but heart rate remained in the [id number] range when I arrived to see the patient. Blood pressure was significantly elevated at 180/122 on presentation but has improved with addition of BiPAP and fluids. Patient himself is obtunded and coughing, was not able to give any further history. Patient was presented as a sepsis alert and is now being admitted to the ICU for further management. Allergies Allergy/AdvReac Type Severity Reaction Status Date / Time adhesive Allergy Intermediate BLISTERS Verified 05/04/19 10:18 alcohol Allergy Unknown RUBBING Verified 05/04/19 10:18 ALCOHOL MADE SHORTNESS OF BREATH escitalopram Allergy Unknown UNSURE-DOES Verified 05/04/19 10:18 NOT KNOW lisinopril Allergy Unknown Unknown Verified 05/04/19 10:18 oxycodone Allergy Unknown CONFUSION Verified 05/04/19 10:18 acetaminophen [From Percocet] Allergy Unknown Verified 05/04/19 10:18 Home Medications Home Medications Medication Instructions Recorded Confirmed Type aspirin [Aspir-81] 81 mg PO DAILY 02/13/18 05/04/19 History cholecalciferol (vitamin D3) 1,000 unit PO QPM 02/13/18 05/04/19 History [Vitamin D3] coenzyme Q10 [CoQ-10] 100 mg PO BID 02/13/18 05/04/19 History acetaminophen [Tylenol Extra 1,000 mg PO Q6H PRN 04/28/18 05/04/19 History Strength] tamsulosin 0.4 mg capsule 0.4 mg PO HS #90 cap 08/08/18 05/04/19 Rx atorvastatin 40 mg tablet 40 mg PO PM #30 tab 11/08/18 05/04/19 Rx triamcinolone acetonide 0.1 % 1 appln TOPICAL DAILY PRN #60 gm 11/14/18 05/04/19 History topical ointment diltiazem HCl 240 mg 240 mg PO DAILY 90 Days #90 cap 01/30/19 05/04/19 Rx capsule,extended release 24 hr nitroglycerin 0.4 mg sublingual 0.4 mg SL Q5M PRN #25 tab 01/30/19 05/04/19 History tablet vitamin B complex 1 tab PO DAILY 30 Days #30 tab 01/31/19 05/04/19 Rx memantine 10 mg tablet 10 mg PO BID #180 tab 02/16/19 05/04/19 Rx furosemide 20 mg tablet 20 mg PO DAILY #90 tab 02/17/19 05/04/19 Rx cyanocobalamin (vitamin B-12) 1,000 mcg PO DAILY tab 03/04/19 05/04/19 History 1,000 mcg tablet,extended release metoprolol tartrate 50 mg tablet 50 mg PO BID 90 Days #180 tab 03/06/19 05/04/19 Rx rivastigmine tartrate 3 mg capsule 3 mg PO QAM #30 cap 03/06/19 05/04/19 Rx warfarin 2 mg tablet 2 mg PO .COMPLEX #90 tab 03/06/19 05/04/19 Rx Past Med/Surg History Social History Preferred Language: Kiswahili Communication Ability: Effective Visual Impairment: No Limitations Hearing Ability: Normal 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 Beliefs That Will Affect Care: Scientology Scientology Beliefs: HOLINESS marital status: Current Living Situation: Spouse current occupational status: retired Other Information That Helps Us Care for You: No Feels Safe at Home: Yes Smoking Status: Unknown if ever smoked Hx Alcohol Use: No Hx Substance Use: No Seatbelt Use: always Review of Systems Review of Systems: Unobtainable due to reduced consciousness Physical Exam Constitutional: + lethargic and + overweight Neck: trachea midline, no thyromegaly Respiratory: + cough Auscultation: + diminished lung sounds (Limited secondary to cough) and + rhonchi; no crackles, no rales and no wheezes Cardiovascular: Rate/Rhythm: + tachycardic and + irregularly irregular Vessels: no JVD (Exam limited due to the very thick neck) and no carotid bruit Gastrointestinal (Abdomen): Inspection/Auscultation: abdomen normal to inspection Percussion/Palpation: abdomen soft; abdomen nontender, no guarding, abdomen not rigid and no hepatosplenomegaly Skin: no rashes, warm and dry Psychiatric: Orientation: + not alert and + not oriented x 3 Results & Data Vital Signs (Past 12 Hours) Vital Signs Temp Pulse Resp BP Pulse Ox 05/04/19 10:29 134 H 98 05/04/19 10:13 165 H 97 05/04/19 10:12 147 H 180/122 H 05/04/19 10:05 153 H 31 H 95 05/04/19 09:41 38.7 C H 200 H 28 H 177/103 H 84 L Laboratory Results WBCs 9.4, hemoglobin 13.6 hematocrit of 40.8, platelets 161. INR is 2.6. Sodium is 134, potassium 3.7, chloride of 101 dioxide of 24 BUN of 13, creatinine 1.16. Glucose is 169. Ionized calcium is 1.08. Troponin is nondetectable. UA shows 3+ protein and 3+ blood, over 30 RBCs, 1-5 WBCs. Flu swab was negative. Diagnostic Findings XR chest 1V portable CLINICAL HISTORY: SEPSIS COMPARISON STUDY: 02/26/2019 FINDINGS: The heart is enlarged. The study is rotated. There is elevation of interstitium, likely secondary to mild congestive failure/fluid overload. Interstitial inflammatory processes could appear similar. There are no large pleural effusions.[ IMPRESSION: Cardiomegaly and radiographic findings consistent with mild pulmonary vascular congestion/fluid overload. No lobar consolidation. PG Care Time/CCT Total # of Minutes Spent Total Time Spent with Patient: Total time spent is greater than 50% in coordination of care (as documented) at patient's floor/unit and/or counseling patient: Coding Level of Care Code 62806 Initial Inpt Care Lvl 3 Diagnoses Sepsis A41.9 Rapid atrial fibrillation I48.91 Dementia F03.90 Hypertension I10 CHF (congestive heart failure) I50.9
[2019-05-04 10:56] LABS: Base Excess VBG -2.7 mEq/L; HCO3 VBG 24 mmol/L; PCO2 VBG 51 mmHg (38-50); PO2 VBG 29 mmHg
[2019-05-04 10:57] LABS: Oxygen Saturation VBG < 60.0 %
[2019-05-04] MEDS ORDERED: SODIUM CHLORIDE 0.9% 1000ML 1,000 ML IV SCH (12:06)
[2019-05-04] MEDS ORDERED: ICU PROTOCOL FOR HYPERGLYCEMIA PRN (12:06)
[2019-05-04] MEDS ORDERED: VANCOMYCIN CONSULT ACTIVE PRN (12:06)
[2019-05-04] MEDS ORDERED: CEFEPIME 1,000 MG in SYRINGE 0 ML IV SCH (12:06)
[2019-05-04] MEDS ORDERED: Heparin IV Standard *NO* Bolus IV SCH (12:08)
[2019-05-04] MEDS ORDERED: CEFEPIME CONSULT ACTIVE PRN (12:11)
[2019-05-04] MEDS ORDERED: HEPARIN SODIUM/DEXTROSE 25,000 UNITS/500 ML BAG IV SCH (12:15)
[2019-05-04] MEDS ORDERED: AZITHROMYCIN 500 MG in DEXTROSE 5% 250 ML IV STA (13:25)
--- NOTE | 2019-05-04 13:33 | Critical Care Consultation ---
Date of Consultation May 04, 2019 Assessment & Plan (1) S/P admission to ICU (intensive care unit): Patient received vancomycin and cefepime in the ER. We are going to give a dose of azithromycin as well for atypical pneumonia. Viral respiratory PCR ([facility]) has been ordered. I have also ordered COVID-19 testing. Procalcitonin is negative. Influenza PCR is also negative. Patient has evidence of bilateral interstitial infiltrates, sick family members and a high- grade fever. Concern for viral pneumonia certainly present. No evidence of obvious urinary tract infection. LFTs pending as well. No obvious diarrhea. Blood cultures pending. Continue diltiazem drip for A. fib RVR. No need for heparin drip given his INR level is therapeutic at 2.6. Repeat lactate pending. proBNP pending as well. I am stopping his IV fluids given that he does not look hypervolemic. If he should drop his pressures, I would favor starting him on pressors at this point. I had a lengthy discussion with the patient's regarding his CODE STATUS. She indicated that he has been suffering from dementia for very long period of time and at this point if he wanted to cardiac or pulmonary arrest, she would prefer that he would not undergo heroic measures and this would be in line with what he would want. Thus the patient has been made a DO NOT RESUSCITATE and DO NOT INTUBATE. I did strongly advised the patient's to go home given her upper respiratory symptoms. We will update her over the phone as further information is available. She did go home and we have gave her an N95 mask. (2) Atrial fibrillation: (3) Sepsis: (4) Atrial fibrillation with RVR: (5) Dementia: History of Present Illness Reason for Consultation: Acute respiratory failure and hypertension Requesting Physician: Emergency department physician Attending Physician: Edinson Gates DO History of Present Illness 73-year-old male with a past medical history of severe Alzheimer's/amyloid dementia, chronic atrial fibrillation on warfarin, hypercholesterolemia, coronary artery disease, diastolic heart failure and previous CVA who presented to the hospital due to coughing for the past 2 days. Patient is unable to give any history, however, the was able to give me some history. She notes that he has baseline dementia and occasionally has to wear diaper at night. She notes that he has become more short of breath with a nonproductive cough. She noted that yesterday evening he was very confused. She also notes that her grandson and her daughter have been sick with a cough. They live in [place]. There is no recent travel that she is aware. Patient's notes that she has a cough as well. She is currently wearing a mask. The patient is currently on BiPAP saturating well. He is heart rate is jumping from the 110s to the 130s. Blood pressure is 117/64. He has been febrile to 38.2 centigrade. Procalcitonin negative. Influenza swabs are negative. [employer] respiratory PCR is pending. We have also sent for COVID 19 PCR. Urinalysis is negative for nitrates, ketones or leukoesterase. Chest x- ray shows bilateral interstitial infiltrates. Patient is currently on diltiazem. Received a dose of vancomycin and cefepime. Allergies Allergy/AdvReac Type Severity Reaction Status Date / Time adhesive Allergy Intermediate BLISTERS Verified 05/04/19 10:18 alcohol Allergy Unknown RUBBING Verified 05/04/19 10:18 ALCOHOL MADE SHORTNESS OF BREATH escitalopram Allergy Unknown UNSURE-DOES Verified 05/04/19 10:18 NOT KNOW lisinopril Allergy Unknown Unknown Verified 05/04/19 10:18 oxycodone Allergy Unknown CONFUSION Verified 05/04/19 10:18 acetaminophen [From Percocet] Allergy Unknown Verified 05/04/19 10:18 Home Medications Home Medications Medication Instructions Recorded Confirmed Type aspirin [Aspir-81] 81 mg PO DAILY 02/13/18 05/04/19 History cholecalciferol (vitamin D3) 1,000 unit PO QPM 02/13/18 05/04/19 History [Vitamin D3] coenzyme Q10 [CoQ-10] 100 mg PO BID 02/13/18 05/04/19 History acetaminophen [Tylenol Extra 1,000 mg PO Q6H PRN 04/28/18 05/04/19 History Strength] tamsulosin 0.4 mg capsule 0.4 mg PO HS #90 cap 08/08/18 05/04/19 Rx atorvastatin 40 mg tablet 40 mg PO PM #30 tab 11/08/18 05/04/19 Rx triamcinolone acetonide 0.1 % 1 appln TOPICAL DAILY PRN #60 gm 11/14/18 05/04/19 History topical ointment diltiazem HCl 240 mg 240 mg PO DAILY 90 Days #90 cap 01/30/19 05/04/19 Rx capsule,extended release 24 hr nitroglycerin 0.4 mg sublingual 0.4 mg SL Q5M PRN #25 tab 01/30/19 05/04/19 History tablet vitamin B complex 1 tab PO DAILY 30 Days #30 tab 01/31/19 05/04/19 Rx memantine 10 mg tablet 10 mg PO BID #180 tab 02/16/19 05/04/19 Rx furosemide 20 mg tablet 20 mg PO DAILY #90 tab 02/17/19 05/04/19 Rx cyanocobalamin (vitamin B-12) 1,000 mcg PO DAILY tab 03/04/19 05/04/19 History 1,000 mcg tablet,extended release metoprolol tartrate 50 mg tablet 50 mg PO BID 90 Days #180 tab 03/06/19 05/04/19 Rx rivastigmine tartrate 3 mg capsule 3 mg PO QAM #30 cap 03/06/19 05/04/19 Rx warfarin 2 mg tablet 2 mg PO .COMPLEX #90 tab 03/06/19 05/04/19 Rx Patient History Medical History Atrial fibrillation (Chronic) BPH (benign prostatic hyperplasia) CAD (coronary artery disease) CHF (congestive heart failure) Coronary artery disease CVA (cerebral vascular accident) Dementia (Acute) Hyperlipidemia (Chronic) Hypertension (Chronic) BARBARA (obstructive sleep apnea) Surgical History History of knee replacement History of PTCA Family History Father Stroke Mother Myocardial infarction Aunt Diabetes Family/Other Heart disease Hypertension Nephrolithiasis Denies family history of Prostate cancer Social History Preferred Language: Serbian Communication Ability: Effective Visual Impairment: No Limitations Hearing Ability: Normal 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 He is mildly tachypneic. He is coughing frequently. He is moaning occasionally. Eyes: PERRL, conjunctivae normal, anicteric sclerae ENMT: external ear and nose normal, oropharynx normal Neck: normal visual inspection Respiratory: Diffusely rhonchorous. No obvious wheezing. Cardiovascular: RRR, no murmur, no edema Gastrointestinal (Abdomen): normal bowel sounds, soft, nontender, no hepatosplenomegaly Musculoskeletal: no cyanosis or clubbing, extremities motor strength 5/5 Skin: no rashes, warm and dry Neurologic: PERRL, EOMI, accommodation nl, no face palsy, no dysarthria Psychiatric: A+Ox3, euthymic affect Results & Data ([facility]) Vital Signs (Past 12 Hours) Vital Signs Temp Pulse Pulse Resp BP BP Pulse Ox 05/04/19 11:49 82 18 122/79 97 05/04/19 11:48 98 05/04/19 11:21 133 H 22 89/78 L 98 05/04/19 11:19 136 H 26 H 112/73 98 05/04/19 11:15 152 H 31 H 99 05/04/19 11:14 101.1 F H 05/04/19 11:12 149 H 24 99 05/04/19 11:11 147 H 29 H 96/57 L 99 05/04/19 11:10 155 H 28 H 99 05/04/19 11:05 138 H 31 H 114/80 97 05/04/19 11:00 153 H 28 H 105/64 98 05/04/19 10:29 134 H 98 05/04/19 10:13 165 H 97 05/04/19 10:12 147 H 180/122 H 05/04/19 10:05 153 H 31 H 95 05/04/19 09:55 101.1 F H 142 H 44 H 99 05/04/19 09:41 101.7 F H 200 H 28 H 177/103 H 84 L I personally reviewed his labs, chest imaging and notes. Coding Level of Care Code Critical Care 1st 30-74 mins Diagnoses S/P admission to ICU (intensive care unit) Atrial fibrillation I48.91 Sepsis A41.9 Atrial fibrillation with RVR I48.91 Dementia F03.90 Dementia behavioral disturbance: without behavioral disturbance Dementia type: unspecified type Time Spent (min) 50 (1) Dementia Dementia behavioral disturbance: without behavioral disturbance Dementia type: unspecified type Qualified Code(s): F03.90 - Unspecified dementia without behavioral disturbance
[2019-05-04 13:40] LABS: iSTAT Allen Test Pass; iSTAT Art Bld Gas pCO2 Correct 36 mmHg (35-46); iSTAT Art Bld Gas pH Corrected 7.376 (7.35-7.45); iSTAT Arterial Blood Gas HCO3 22 meg/L (19-24); iSTAT Arterial Blood Gas pCO2 39 mmHg (35-46); iSTAT Arterial Blood Gas pH 7.35 (7.35-7.45); iSTAT Arterial Blood Gas pO2 94 mmHg (80-95); iSTAT Arterial Blood Gas pO2 C 84; iSTAT Carbon Dioxide 23 mmol/L (24-31); iSTAT FiO2 30 %; iSTAT Hematocrit 34 % (42-52); iSTAT Hemoglobin 11.6 g/dl (14.0-18.0); iSTAT Potassium 3.7 mmol/L (3.3-5.0); iSTAT Site R Radial; iSTAT Sodium 136 mmol/L (135-144)
[2019-05-04] MEDS ORDERED: ACETAMINOPHEN 65 ML IV PRN (14:05)
[2019-05-04 14:12] LABS: Albumin Level 2.9 gm/dl (3.4-5.0); Bilirubin Direct 0.2 mg/dl (0-0.2); Bilirubin,Total 0.9 mg/dl (0.2-1); Total Protein 7.1 gm/dl (6.4-8.2); Troponin I 0.076 ng/ml (0-0.045)
[2019-05-04 14:37] LABS: Adenovirus PCR Not Detected (NotDetected); Coronavirus 229E PCR Not Detected (NotDetected); Coronavirus HKU1 PCR Not Detected (NotDetected); Coronavirus NL63 PCR Not Detected (NotDetected); Coronavirus OC43PCR Not Detected (NotDetected); Human Metapneumovirus PCR Not Detected (NotDetected)
[2019-05-04 14:38] LABS: Bordetella parapertussis PCR Not Detected (NotDetected); Bordetella pertussis PCR Not Detected (NotDetected); Chlamydia pneumoniae PCR Not Detected (NotDetected); Influenza A PCR Not Detected (NotDetected); Influenza B PCR Not Detected (NotDetected); Mycoplasma pneumoniae PCR Not Detected (NotDetected); Parainfluenza Virus 1 PCR Not Detected (NotDetected); Parainfluenza Virus 2 PCR Not Detected (NotDetected); Parainfluenza Virus 3 PCR Not Detected (NotDetected); Parainfluenza Virus 4 PCR Not Detected (NotDetected); Rhinovirus/Enterovirus PCR Not Detected (NotDetected)
[2019-05-04 14:39] LABS: Respiratory Syncytial VirusPCR DETECTED (NotDetected)
--- NOTE | 2019-05-04 14:56 | Pharmacy Report ---
Pharmacy Abx Initial Consult - Date of Service May 04, 2019 - Pharmacy Dosing Scope Date of Consult: 05/04/19 Consultation requested by: Dr. Gates Pharmacy is consulted to initiate Vancomycin + Cefepime IV/PO dosing therapy, order appropriate labs and adjust drug dose/frequency. - Subjective The patient is a 73 year old M admitted on 05/04/19 11:10. - Objective Height: 5 ft 9 in Weight: 96.3 kg Vital Signs (Past 12hrs): Vital Signs Temp Pulse Pulse Resp BP BP Pulse Ox 05/04/19 11:49 82 18 122/79 97 05/04/19 11:48 98 05/04/19 11:21 133 H 22 89/78 L 98 05/04/19 11:19 136 H 26 H 112/73 98 05/04/19 11:15 152 H 31 H 99 05/04/19 11:14 38.4 C H 05/04/19 11:12 149 H 24 99 05/04/19 11:11 147 H 29 H 96/57 L 99 05/04/19 11:10 155 H 28 H 99 05/04/19 11:05 138 H 31 H 114/80 97 05/04/19 11:00 153 H 28 H 105/64 98 05/04/19 10:29 134 H 98 05/04/19 10:13 165 H 97 05/04/19 10:12 147 H 180/122 H 05/04/19 10:05 153 H 31 H 95 05/04/19 09:55 38.4 C H 142 H 44 H 99 05/04/19 09:41 38.7 C H 200 H 28 H 177/103 H 84 L Lab Results (24hrs): Laboratory Tests (24 Hours) 05/04/19 05/04/19 05/04/19 10:05 10:05 10:05 WBC 9.48 Neut # (Auto) 7.83 H Creatinine 1.16 Est Cr Clr Drug Dosing 65.9 Procalcitonin 0.07 Micro Results: 05/04/19 10:00 Urine Culture - Pending Urine,Indwelling Cath 05/04/19 10:00 Aerobic Blood Culture - Pending Blood Anaerobic Blood Culture - Pending 05/04/19 09:55 Aerobic Blood Culture - Pending Blood Anaerobic Blood Culture - Pending - Risk Factors for Resistance * Hospitalization for 48 hours or more within the past 90 days - 02/27-02/28 - Assessment & Plan Assessment 73 year old M with a history of dementia, a fib, HLD, CAD, CHD, and previous CVA presented to the ED with his after developing a non-productive cough x2days. Patient's provides much of his history - he has been short of breath, febrile, with a non-productive cough. Of note, the patient's daughter and grandson are current sick with a cough, the also has upper respiratory symptoms. No history of travel as far as the knows. Patient febrile in the ED x3, Tmax 38.7 MRSA Swab pending [employer] panel ordered - RSV detected, some results are still pending. BCx x2 and UCx pending Rneal function appears to be at baseline, no leukocytosis Plan Vancomycin + Cefepime for treatment of pulmonary source Vancomycin IV * Estimated PK Parameters: Vd 0.7 L/kg, Sushil 0.059 hr-1, t1/2 11.7 hr * Loading dose: 2000 mg (21 mg/kg) * Maintenance dose: 1500 mg IV (15.6 mg/kg) every 14 hours * Goal trough level : 15 to 20 mcg/mL * Trough/Random level ordered for 05/06/19 prior to 3rd dose to assessed for drug accumulation. Cefepime * eCrCl 66 mL/min, no dose adjustment required over 60 mL/min * 2gm Q8h for pulmonary indication Pharmacy will continue to follow and will adjust dose/frequency as necessary. Thank you.
[2019-05-04] MEDS: ALBUT/IPRATROP 3MG/0.5MG NEB 3 ML VIAL NEB SCH ×4 (15:44→22:19)
[2019-05-04] MEDS: CEFEPIME 2,000 MG in SYRINGE 7.5 ML IV SCH (18:49)
--- NOTE | 2019-05-04 19:01 | Cardiology Consultation ---
Date of Consultation May 04, 2019 Assessment & Plan (1) Atrial fibrillation with RVR: (2) Respiratory syncytial virus pneumonia: (3) CAD (coronary artery disease): (4) Dementia: (5) Hypertension: (6) Sepsis: Patient appears clinically stable currently from a cardiac standpoint with normotensive blood pressure and much improved rate control on diltiazem drip. Agree with plan to switch to esmolol if the patient becomes hypotensive. Patient appears euvolemic to minimally hypervolemic on exam, agree with holding diuretic and fluids at this point, with future fluid resuscitation or diuresis based on close monitoring of his volume status. No evidence of primary cardiac ischemic process, minor troponin elevation likely due supply/demand mismatch from the extreme physiologic stress of heart rate in the 200 bpm range. As noted, he had a previously negative dobutamine stress echo and normal systolic function, so he likely will have reasonable cardiac reserve. Expect further minor troponin elevation due to enzyme lag post hemodynamic stress. Consider repeat ECG now that his ventricular rate is well controlled, suspect that the earlier ST depressions were either rate related or due to transient ischemia from physiologic stress of tachycardia. No need for additional anticoagulation, he is therapeutic from his outpatient warfarin. Consider heparin when INR drops below 2.0. Will informed [facility] cardiology of the patient's status, either they or [facility] cardiology will continue to follow along. Thank you for this consultation. History of Present Illness Reason for Consultation: AFib with RVR Requesting Physician: Dvais Win MD Attending Physician: Edinson Gates DO History of Present Illness 73-year-old man with history of permanent atrial fibrillation, coronary artery disease (LAD stent 2004), hypertension, remote CVA, and dementia who was admitted today with sepsis, tested positive for respiratory syncytial virus, and was noted to have rapid ventricular response to his atrial fibrillation (up to 200 bpm). At recent baseline, limitations secondary to his dementia apparently dominate his the lifestyle. He is followed at [facility] from a cardiology standpoint. As an outpatient his ventricular rate to atrial fibrillation is controlled on diltiazem and metoprolol tartrate. On chronic warfarin with INR goal of 2-2.5 given concurrent use of aspirin. No recent ischemic symptoms and he had a negative dobutamine stress echocardiogram in 2018. His outpatient office notes do not mention any history of congestive heart failure but he does have chronic lower extremity edema for which he is on furosemide 20 mg daily. His rapid ventricular response was treated with diltiazem and his rate is currently physiologically appropriate for his clinical status. BP is low-normal without the need for pressors. Allergies Allergy/AdvReac Type Severity Reaction Status Date / Time adhesive Allergy Intermediate BLISTERS Verified 05/04/19 10:18 alcohol Allergy Unknown RUBBING Verified 05/04/19 10:18 ALCOHOL MADE SHORTNESS OF BREATH escitalopram Allergy Unknown UNSURE-DOES Verified 05/04/19 10:18 NOT KNOW lisinopril Allergy Unknown Unknown Verified 05/04/19 10:18 oxycodone Allergy Unknown CONFUSION Verified 05/04/19 10:18 acetaminophen [From Percocet] Allergy Unknown Verified 05/04/19 10:18 Home Medications Home Medications Medication Instructions Recorded Confirmed Type aspirin [Aspir-81] 81 mg PO DAILY 02/13/18 05/04/19 History cholecalciferol (vitamin D3) 1,000 unit PO QPM 02/13/18 05/04/19 History [Vitamin D3] coenzyme Q10 [CoQ-10] 100 mg PO BID 02/13/18 05/04/19 History acetaminophen [Tylenol Extra 1,000 mg PO Q6H PRN 04/28/18 05/04/19 History Strength] tamsulosin 0.4 mg capsule 0.4 mg PO HS #90 cap 08/08/18 05/04/19 Rx atorvastatin 40 mg tablet 40 mg PO PM #30 tab 11/08/18 05/04/19 Rx triamcinolone acetonide 0.1 % 1 appln TOPICAL DAILY PRN #60 gm 11/14/18 05/04/19 History topical ointment diltiazem HCl 240 mg 240 mg PO DAILY 90 Days #90 cap 01/30/19 05/04/19 Rx capsule,extended release 24 hr nitroglycerin 0.4 mg sublingual 0.4 mg SL Q5M PRN #25 tab 01/30/19 05/04/19 History tablet vitamin B complex 1 tab PO DAILY 30 Days #30 tab 01/31/19 05/04/19 Rx memantine 10 mg tablet 10 mg PO BID #180 tab 02/16/19 05/04/19 Rx furosemide 20 mg tablet 20 mg PO DAILY #90 tab 02/17/19 05/04/19 Rx cyanocobalamin (vitamin B-12) 1,000 mcg PO DAILY tab 03/04/19 05/04/19 History 1,000 mcg tablet,extended release metoprolol tartrate 50 mg tablet 50 mg PO BID 90 Days #180 tab 03/06/19 05/04/19 Rx rivastigmine tartrate 3 mg capsule 3 mg PO QAM #30 cap 03/06/19 05/04/19 Rx warfarin 2 mg tablet 2 mg PO .COMPLEX #90 tab 03/06/19 05/04/19 Rx Patient History Medical History Atrial fibrillation (Chronic) BPH (benign prostatic hyperplasia) CAD (coronary artery disease) CHF (congestive heart failure) Coronary artery disease CVA (cerebral vascular accident) Dementia (Acute) Hyperlipidemia (Chronic) Hypertension (Chronic) BARBARA (obstructive sleep apnea) S/P admission to ICU (intensive care unit) Surgical History History of knee replacement History of PTCA Family History Diabetes Aunt Heart disease Family/Other Nephrolithiasis Family/Other Myocardial infarction Mother Hypertension Family/Other Stroke Father Denies family history of Prostate cancer Social History Preferred Language: Czech Communication Ability: Effective Visual Impairment: No Limitations Hearing Ability: Normal 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 Tm 101.7, BP low normal, pulse currently in the 100-110 bpm range, RR 24. Skin: No ecchymosis or generalized lesions. HEENT: Unremarkable. Neck: Jugular venous pulse just above the clavicle at 70, no obvious carotid bruits on limited exam. Lungs: Diffuse rhonchi and expiratory wheezing with mildly reduced airflow. No abdominal paradox or intercostal retractions. Cardiac: Irregular/tachycardic rhythm without obvious murmur on limited exam. Abdomen: Nondistended. Extremities: Chronic changes with trace to 1+ pretibial edema. Neurologic: Not interactive. Results & Data ([facility]) Laboratory Results 05/04/19 13:18 Troponin I 0.076 H* 05/04/19 05/04/19 05/04/19 10:05 10:05 10:05 WBC 9.48 Hgb 13.6 L INR 2.6 H BUN 13 Creatinine 1.16 Troponin I < 0.015 Albumin 05/04/19 13:18 WBC Hgb INR BUN Creatinine Troponin I Albumin 2.9 L Diagnostic Findings Chest x-ray showed cardiomegaly and mild pulmonary vascular congestion, no lobar consolidation. ECG showed atrial fibrillation with rapid ventricular response (180 bpm), minor ST depression anterolateral leads. Compared with 03/09/19 ECG, rate increased by 69 bpm, ST depression is new. Echocardiogram from 2018 showed EF 50 55% with mild LVH no regional wall motion abnormalities. Mild mitral regurgitation with moderate pulmonary hypertension. Dobutamine stress echocardiogram April 2017 showed no ischemia at 89% maximum predicted heart rate. PG Care Time/CCT Total # of Minutes Spent Total Time Spent with Patient: Total time spent is greater than 50% in coordination of care (as documented) at patient's floor/unit and/or counseling patient: Coding Level of Care Code 09303 Initial Inpt Care Lvl 3 Diagnoses Atrial fibrillation with RVR I48.91 Respiratory syncytial virus pneumonia J12.1 CAD (coronary artery disease) I25.10 Dementia F03.90 Dementia behavioral disturbance: without behavioral disturbance Dementia type: unspecified type Hypertension I10 Hypertension type: unspecified Sepsis A41.9 (1) Dementia Dementia behavioral disturbance: without behavioral disturbance Dementia type: unspecified type Qualified Code(s): F03.90 - Unspecified dementia without behavioral disturbance (2) Hypertension Hypertension type: unspecified Qualified Code(s): I10 - Essential (primary) hypertension
[2019-05-04] MEDS ORDERED: METOPROLOL TARTRATE 1 MG/ML VIAL IV ONE (19:53)
[2019-05-05] MEDS ORDERED: VANCOMYCIN HCL 1,500 MG in SODIUM CHLORIDE 0.9% 500 ML IV SCH
[2019-05-05] MEDS: CEFEPIME 2,000 MG in SYRINGE 7.5 ML IV SCH ×3 (02:49→15:19)
[2019-05-05] MEDS ORDERED: LORazepam 0.25 MG/0.5 ML VIAL IV STA (03:03)
[2019-05-05] MEDS: ALBUT/IPRATROP 3MG/0.5MG NEB 3 ML VIAL NEB SCH ×6 (04:14→22:24)
[2019-05-05] MEDS ORDERED: ONDANSETRON INJ 2 MG/ML 2 ML VIAL IV PRN (04:59)
[2019-05-05] MEDS ORDERED: ONDANSETRON INJ 2 MG/ML 2 ML VIAL ONE (05:00)
[2019-05-05 05:29] LABS: Basophils # (auto) 0.03 K/uL (0-0.2); Basophils % (auto) 0.3 %; Hematocrit (blood only) 39.5 % (42-52); Hemoglobin 12.7 g/dL (14.0-18.0); Immature Granulocytes # (auto) 0.03 K/uL (0.00-0.02); Immature Granulocytes % (auto) 0.3 %; Lymphocytes % (auto) 6.7 %; Mean Corpuscular Hgb Conc 32.2 g/dL (32-36); Mean Corpuscular Volume 93.2 fL (80-100); Mean Platelet Volume 10.1 fL (7.4-10.4); Monocytes # (auto) 0.64 K/uL (0.11-0.59); Monocytes % (auto) 5.3 %; Neutrophils # (auto) 10.48 K/uL (1.4-6.5); Neutrophils % (auto) 87.4 %; Platelet Count 147 K/uL (130-400); RDW Coefficient of Variation 16.5 % (11.5-14.5); RDW Standard Deviation 56.2 fL (36.4-46.3); Red Blood Count 4.24 M/uL (4.7-6.1); White Blood Count 11.98 K/uL (4.8-10.8)
[2019-05-05 05:46] LABS: BUN Creatinine Ratio 10.3 (10-20); Calcium 8.5 mg/dl (8.5-10.1); Creatinine Clr Calc Pharmacy 57.9 ml/min; Est GFR (Non-African American) 53.5; Potassium 3.7 mmol/L (3.5-5.1)
[2019-05-05 05:51] LABS: INR 3.5 (0.9-1.1); Prothrombin Time 34.8 Seconds (9.0-12.0)
--- NOTE | 2019-05-05 07:14 | Critical Care Progress Note ---
Date of Service May 05, 2019 Assessment & Plan (1) Respiratory syncytial virus pneumonia: (2) Atrial fibrillation with RVR: (3) Sepsis: (4) BARBARA (obstructive sleep apnea): (5) Dementia: Admission and Anticipated Discharge Date Admission Date: May 04, 2019 Results & Data ([facility]) Vital Signs (Past 12 Hours) Vital Signs Temp Pulse Pulse Resp BP Pulse Ox 05/05/19 06:34 96 H 33 H 137/75 93 05/05/19 06:04 36.6 C 102 H 42 H 114/70 91 05/05/19 05:34 117 H 37 H 116/83 94 05/05/19 05:04 127 H 32 H 147/79 H 88 L 05/05/19 04:34 124 H 32 H 130/75 98 05/05/19 04:14 106 H 26 H 96 05/05/19 04:04 36.8 C 115 H 25 H 133/93 95 05/05/19 03:34 139 H 29 H 133/80 97 05/05/19 03:04 126 H 24 126/95 95 05/05/19 02:34 118 H 21 129/103 H 98 05/05/19 02:04 36.8 C 112 H 21 126/107 H 97 05/05/19 01:34 114 H 24 135/82 98 05/05/19 01:26 133 H 24 97 05/05/19 01:03 106 H 35 H 156/72 H 96 05/05/19 00:35 121 H 24 129/89 97 05/05/19 00:04 39 C H 106 H 27 H 139/77 97 05/04/19 23:48 163 H 173/113 H 05/04/19 23:34 129 H 31 H 172/113 H 95 05/04/19 23:04 128 H 24 182/90 H 98 05/04/19 22:34 165 H 19 89/67 L 88 L 05/04/19 22:26 147 H 28 H 97 05/04/19 22:04 37.9 C H 134 H 27 H 137/83 05/04/19 21:33 105 H 24 161/86 H 99 05/04/19 21:04 127 H 32 H 171/94 H 98 05/04/19 20:45 147 H 33 H 86 L 05/04/19 20:34 127 H 29 H 114/98 88 L 05/04/19 20:05 122 H 34 H 158/97 H 87 L 05/04/19 19:45 145 H 150/87 H 05/04/19 19:43 147 H 05/04/19 19:34 38.8 C H 129 H 25 H 150/87 H 90 05/04/19 19:14 123 H 30 H 98 05/04/19 19:11 88 25 H Laboratory Results 05/05/19 05/05/19 05/05/19 Range/Units 05:21 05:21 05:21 WBC (4.8-10.8) K/uL RBC (4.7-6.1) M/uL Hgb (14.0-18.0) g/dL POC Hgb (14.0-18.0) g/dl Hct (42-52) % POC Hct (42-52) % MCV (80-100) fL MCH (25-34) pg MCHC (32-36) g/dL RDW Std Deviation (36.4-46.3) fL RDW Coeff of Alex (11.5-14.5) % Plt Count (130-400) K/uL MPV (7.4-10.4) fL Immature Gran % (Auto) % Neut % (Auto) % Lymph % (Auto) % Stark % (Auto) % Eos % (Auto) % Baso % (Auto) % Immature Gran # (Auto) (0.00-0.02) K/uL Neut # (Auto) (1.4-6.5) K/uL Lymph # (Auto) (1.2-3.4) K/uL Stark # (Auto) (0.11-0.59) K/uL Eos # (Auto) (0-0.5) K/uL Baso # (Auto) (0-0.2) K/uL PT 34.8 H (9.0-12.0) Seconds INR 3.5 H (0.9-1.1) APTT (21.0-31.0) Seconds PTT Ratio Sample Site POC pH (7.35-7.45) POC pCO2 (35-46) mmHg POC pO2 (80-95) mmHg POC HCO3 (19-24) guy/L POC Base Excess (-9-1.8) guy/L ABG pH (Temp Correct) (7.35-7.45) ABG pCO2 (Temp Corrct (35-46) mmHg POC ABG pO2 at Pt Temp Jovanni Test VBG pH (7.36-7.41) VBG pCO2 (38-50) mmHg VBG pO2 mmHg VBG HCO3 mmol/L VBG O2 Saturation % VBG Base Excess mEq/L Barometric Pressure mm/Hg O2 Delivery Device POC O2 Rate POC FiO2 % IPAP POC Sodium (135-144) mmol/L Sodium 137 (136-145) mmol/L POC Potassium (3.3-5.0) mmol/L Potassium 3.7 (3.5-5.1) mmol/L POC Chloride (101-112) mmol/L Chloride 103 (98-107) mmol/L Carbon Dioxide 27 (21-32) mmol/L POC Total CO2 (24-31) mEq/l Anion Gap 7.0 (3-11) POC Anion Gap (16-25) mmol/L POC BUN (7-18) mg/dl BUN 14 (7-18) mg/dl Creatinine 1.32 (0.6-1.4) mg/dl POC Creatinine (0.6-1.3) mg/dl Est Cr Clr Drug Dosing 57.9 ml/min Est GFR ( Amer) 62.0 Est GFR (Non-Af Amer) 53.5 BUN/Creatinine Ratio 10.3 (10-20) Glucose 196 H (70-99) mg/dl POC Glucose (70-99) mg/dl POC Glucose (other) (70-99) mg/dl Lactate 4.3 H* (0.4-2.0) mmol/L Calcium 8.5 (8.5-10.1) mg/dl POC Ioniz Calcium Gaetano (1.12-1.32) mmol/l Magnesium 2.0 (1.8-2.4) mg/dl Total Bilirubin (0.2-1) mg/dl Direct Bilirubin (0-0.2) mg/dl AST (15-37) U/L ALT (12-78) U/L Alkaline Phosphatase (45-117) U/L Lactate Dehydrogenase (87-241) U/L Troponin I (0-0.045) ng/ml NT-Pro-B Natriuret Pep (0-900) pg/ml Total Protein (6.4-8.2) gm/dl Albumin (3.4-5.0) gm/dl Globulin (2.5-4.0) gm/dl Albumin/Globulin Ratio (0.9-2) Procalcitonin (0-0.5) ng/ml Urine Color Urine Appearance (Clear) Urine pH (4.5-7.5) Ur Specific [place] (1.000-1.030) Urine Protein (Negative) Urine Glucose (UA) (Negative) Urine Ketones (Negative) Urine Blood (Negative) Urine Nitrite (Negative) Urine Bilirubin (Negative) Urine Urobilinogen (Negative) Ur Leukocyte Esterase (Negative) Urine WBC (Auto) (0-5) /hpf Urine RBC (Auto) (0-4) /hpf U Hyaline Cast (Auto) (0-5) /lpf U Epithel Cells (Auto) (0-5) /lpf Urine Bacteria (Auto) (Negative) Ur Renal Epithelial Cell Nasal Screen MRSA (PCR) (Negative) Adenovirus (PCR) (NotDetected) B. pertussis DNA (PCR) (NotDetected) B.parapertussis DNA PCR (NotDetected) C. pneumoniae DNA (PCR) (NotDetected) Coronavirus (PCR) Coronavirus OC43 (PCR) (NotDetected) Coronavirus HKU1 (PCR) (NotDetected) Coronavirus 229E (PCR) (NotDetected) Coronavirus NL63 (PCR) (NotDetected) Human Metapneumovir PCR (NotDetected) Influenza Type A (PCR) (Neg) Influenza Type B (PCR) (Neg) M. pneumoniae (PCR) (NotDetected) Parainfluenza 1 (PCR) (NotDetected) Parainfluenza 2 (PCR) (NotDetected) Parainfluenza 3 (PCR) (NotDetected) Parainfluenza 4 (PCR) (NotDetected) RSV (PCR) (NotDetected) Respiratory Virus Sourc Entero/Rhino (PCR) (NotDetected) Misc Test Comment 05/05/19 05/05/19 05/05/19 Range/Units 05:21 00:13 00:07 WBC 11.98 H (4.8-10.8) K/uL RBC 4.24 L (4.7-6.1) M/uL Hgb 12.7 L (14.0-18.0) g/dL POC Hgb (14.0-18.0) g/dl Hct 39.5 L (42-52) % POC Hct (42-52) % MCV 93.2 (80-100) fL MCH 30.0 (25-34) pg MCHC 32.2 (32-36) g/dL RDW Std Deviation 56.2 H (36.4-46.3) fL RDW Coeff of Alex 16.5 H (11.5-14.5) % Plt Count 147 (130-400) K/uL MPV 10.1 (7.4-10.4) fL Immature Gran % (Auto) 0.3 % Neut % (Auto) 87.4 % Lymph % (Auto) 6.7 % Stark % (Auto) 5.3 % Eos % (Auto) 0.0 % Baso % (Auto) 0.3 % Immature Gran # (Auto) 0.03 H (0.00-0.02) K/uL Neut # (Auto) 10.48 H (1.4-6.5) K/uL Lymph # (Auto) 0.80 L (1.2-3.4) K/uL Stark # (Auto) 0.64 H (0.11-0.59) K/uL Eos # (Auto) 0.00 (0-0.5) K/uL Baso # (Auto) 0.03 (0-0.2) K/uL PT (9.0-12.0) Seconds INR (0.9-1.1) APTT (21.0-31.0) Seconds PTT Ratio Sample Site POC pH (7.35-7.45) POC pCO2 (35-46) mmHg POC pO2 (80-95) mmHg POC HCO3 (19-24) guy/L POC Base Excess (-9-1.8) guy/L ABG pH (Temp Correct) (7.35-7.45) ABG pCO2 (Temp Corrct (35-46) mmHg POC ABG pO2 at Pt Temp Jovanni Test VBG pH (7.36-7.41) VBG pCO2 (38-50) mmHg VBG pO2 mmHg VBG HCO3 mmol/L VBG O2 Saturation % VBG Base Excess mEq/L Barometric Pressure mm/Hg O2 Delivery Device POC O2 Rate POC FiO2 % IPAP POC Sodium (135-144) mmol/L Sodium (136-145) mmol/L POC Potassium (3.3-5.0) mmol/L Potassium (3.5-5.1) mmol/L POC Chloride (101-112) mmol/L Chloride (98-107) mmol/L Carbon Dioxide (21-32) mmol/L POC Total CO2 (24-31) mEq/l Anion Gap (3-11) POC Anion Gap (16-25) mmol/L POC BUN (7-18) mg/dl BUN (7-18) mg/dl Creatinine (0.6-1.4) mg/dl POC Creatinine (0.6-1.3) mg/dl Est Cr Clr Drug Dosing ml/min Est GFR ( Amer) Est GFR (Non-Af Amer) BUN/Creatinine Ratio (10-20) Glucose (70-99) mg/dl POC Glucose 141 H (70-99) mg/dl POC Glucose (other) (70-99) mg/dl Lactate (0.4-2.0) mmol/L Calcium (8.5-10.1) mg/dl POC Ioniz Calcium Gaetano (1.12-1.32) mmol/l Magnesium (1.8-2.4) mg/dl Total Bilirubin (0.2-1) mg/dl Direct Bilirubin (0-0.2) mg/dl AST (15-37) U/L ALT (12-78) U/L Alkaline Phosphatase (45-117) U/L Lactate Dehydrogenase (87-241) U/L Troponin I 0.065 H* (0-0.045) ng/ml NT-Pro-B Natriuret Pep (0-900) pg/ml Total Protein (6.4-8.2) gm/dl Albumin (3.4-5.0) gm/dl Globulin (2.5-4.0) gm/dl Albumin/Globulin Ratio (0.9-2) Procalcitonin (0-0.5) ng/ml Urine Color Urine Appearance (Clear) Urine pH (4.5-7.5) Ur Specific [place] (1.000-1.030) Urine Protein (Negative) Urine Glucose (UA) (Negative) Urine Ketones (Negative) Urine Blood (Negative) Urine Nitrite (Negative) Urine Bilirubin (Negative) Urine Urobilinogen (Negative) Ur Leukocyte Esterase (Negative) Urine WBC (Auto) (0-5) /hpf Urine RBC (Auto) (0-4) /hpf U Hyaline Cast (Auto) (0-5) /lpf U Epithel Cells (Auto) (0-5) /lpf Urine Bacteria (Auto) (Negative) Ur Renal Epithelial Cell Nasal Screen MRSA (PCR) (Negative) Adenovirus (PCR) (NotDetected) B. pertussis DNA (PCR) (NotDetected) B.parapertussis DNA PCR (NotDetected) C. pneumoniae DNA (PCR) (NotDetected) Coronavirus (PCR) Coronavirus OC43 (PCR) (NotDetected) Coronavirus HKU1 (PCR) (NotDetected) Coronavirus 229E (PCR) (NotDetected) Coronavirus NL63 (PCR) (NotDetected) Human Metapneumovir PCR (NotDetected) Influenza Type A (PCR) (Neg) Influenza Type B (PCR) (Neg) M. pneumoniae (PCR) (NotDetected) Parainfluenza 1 (PCR) (NotDetected) Parainfluenza 2 (PCR) (NotDetected) Parainfluenza 3 (PCR) (NotDetected) Parainfluenza 4 (PCR) (NotDetected) RSV (PCR) (NotDetected) Respiratory Virus Sourc Entero/Rhino (PCR) (NotDetected) Misc Test Comment 05/04/19 05/04/19 05/04/19 Range/Units 23:40 18:33 14:01 WBC (4.8-10.8) K/uL RBC (4.7-6.1) M/uL Hgb (14.0-18.0) g/dL POC Hgb (14.0-18.0) g/dl Hct (42-52) % POC Hct (42-52) % MCV (80-100) fL MCH (25-34) pg MCHC (32-36) g/dL RDW Std Deviation (36.4-46.3) fL RDW Coeff of Alex (11.5-14.5) % Plt Count (130-400) K/uL MPV (7.4-10.4) fL Immature Gran % (Auto) % Neut % (Auto) % Lymph % (Auto) % Stark % (Auto) % Eos % (Auto) % Baso % (Auto) % Immature Gran # (Auto) (0.00-0.02) K/uL Neut # (Auto) (1.4-6.5) K/uL Lymph # (Auto) (1.2-3.4) K/uL Stark # (Auto) (0.11-0.59) K/uL Eos # (Auto) (0-0.5) K/uL Baso # (Auto) (0-0.2) K/uL PT (9.0-12.0) Seconds INR (0.9-1.1) APTT (21.0-31.0) Seconds PTT Ratio Sample Site POC pH (7.35-7.45) POC pCO2 (35-46) mmHg POC pO2 (80-95) mmHg POC HCO3 (19-24) guy/L POC Base Excess (-9-1.8) guy/L ABG pH (Temp Correct) (7.35-7.45) ABG pCO2 (Temp Corrct (35-46) mmHg POC ABG pO2 at Pt Temp Jovanni Test VBG pH (7.36-7.41) VBG pCO2 (38-50) mmHg VBG pO2 mmHg VBG HCO3 mmol/L VBG O2 Saturation % VBG Base Excess mEq/L Barometric Pressure mm/Hg O2 Delivery Device POC O2 Rate POC FiO2 % IPAP POC Sodium (135-144) mmol/L Sodium (136-145) mmol/L POC Potassium (3.3-5.0) mmol/L Potassium (3.5-5.1) mmol/L POC Chloride (101-112) mmol/L Chloride (98-107) mmol/L Carbon Dioxide (21-32) mmol/L POC Total CO2 (24-31) mEq/l Anion Gap (3-11) POC Anion Gap (16-25) mmol/L POC BUN (7-18) mg/dl BUN (7-18) mg/dl Creatinine (0.6-1.4) mg/dl POC Creatinine (0.6-1.3) mg/dl Est Cr Clr Drug Dosing ml/min Est GFR ( Amer) Est GFR (Non-Af Amer) BUN/Creatinine Ratio (10-20) Glucose (70-99) mg/dl POC Glucose 144 H (70-99) mg/dl POC Glucose (other) (70-99) mg/dl Lactate (0.4-2.0) mmol/L Calcium (8.5-10.1) mg/dl POC Ioniz Calcium Gaetano (1.12-1.32) mmol/l Magnesium (1.8-2.4) mg/dl Total Bilirubin (0.2-1) mg/dl Direct Bilirubin (0-0.2) mg/dl AST (15-37) U/L ALT (12-78) U/L Alkaline Phosphatase (45-117) U/L Lactate Dehydrogenase (87-241) U/L Troponin I 0.049 H* (0-0.045) ng/ml NT-Pro-B Natriuret Pep (0-900) pg/ml Total Protein (6.4-8.2) gm/dl Albumin (3.4-5.0) gm/dl Globulin (2.5-4.0) gm/dl Albumin/Globulin Ratio (0.9-2) Procalcitonin (0-0.5) ng/ml Urine Color Urine Appearance (Clear) Urine pH (4.5-7.5) Ur Specific [place] (1.000-1.030) Urine Protein (Negative) Urine Glucose (UA) (Negative) Urine Ketones (Negative) Urine Blood (Negative) Urine Nitrite (Negative) Urine Bilirubin (Negative) Urine Urobilinogen (Negative) Ur Leukocyte Esterase (Negative) Urine WBC (Auto) (0-5) /hpf Urine RBC (Auto) (0-4) /hpf U Hyaline Cast (Auto) (0-5) /lpf U Epithel Cells (Auto) (0-5) /lpf Urine Bacteria (Auto) (Negative) Ur Renal Epithelial Cell Nasal Screen MRSA (PCR) Negative (Negative) Adenovirus (PCR) (NotDetected) B. pertussis DNA (PCR) (NotDetected) B.parapertussis DNA PCR (NotDetected) C. pneumoniae DNA (PCR) (NotDetected) Coronavirus (PCR) Coronavirus OC43 (PCR) (NotDetected) Coronavirus HKU1 (PCR) (NotDetected) Coronavirus 229E (PCR) (NotDetected) Coronavirus NL63 (PCR) (NotDetected) Human Metapneumovir PCR (NotDetected) Influenza Type A (PCR) (Neg) Influenza Type B (PCR) (Neg) M. pneumoniae (PCR) (NotDetected) Parainfluenza 1 (PCR) (NotDetected) Parainfluenza 2 (PCR) (NotDetected) Parainfluenza 3 (PCR) (NotDetected) Parainfluenza 4 (PCR) (NotDetected) RSV (PCR) (NotDetected) Respiratory Virus Sourc Entero/Rhino (PCR) (NotDetected) Misc Test Comment 05/04/19 05/04/19 05/04/19 Range/Units 13:27 13:18 13:18 WBC (4.8-10.8) K/uL RBC (4.7-6.1) M/uL Hgb (14.0-18.0) g/dL POC Hgb 11.6 L (14.0-18.0) g/dl Hct (42-52) % POC Hct 34 L (42-52) % MCV (80-100) fL MCH (25-34) pg MCHC (32-36) g/dL RDW Std Deviation (36.4-46.3) fL RDW Coeff of Alex (11.5-14.5) % Plt Count (130-400) K/uL MPV (7.4-10.4) fL Immature Gran % (Auto) % Neut % (Auto) % Lymph % (Auto) % Stark % (Auto) % Eos % (Auto) % Baso % (Auto) % Immature Gran # (Auto) (0.00-0.02) K/uL Neut # (Auto) (1.4-6.5) K/uL Lymph # (Auto) (1.2-3.4) K/uL Stark # (Auto) (0.11-0.59) K/uL Eos # (Auto) (0-0.5) K/uL Baso # (Auto) (0-0.2) K/uL PT (9.0-12.0) Seconds INR (0.9-1.1) APTT (21.0-31.0) Seconds PTT Ratio Sample Site R Radial POC pH 7.35 (7.35-7.45) POC pCO2 39 (35-46) mmHg POC pO2 94 (80-95) mmHg POC HCO3 22 (19-24) guy/L POC Base Excess -4.0 (-9-1.8) guy/L ABG pH (Temp Correct) 7.376 (7.35-7.45) ABG pCO2 (Temp Corrct 36 (35-46) mmHg POC ABG pO2 at Pt Temp 84 Jovanni Test Pass VBG pH (7.36-7.41) VBG pCO2 (38-50) mmHg VBG pO2 mmHg VBG HCO3 mmol/L VBG O2 Saturation % VBG Base Excess mEq/L Barometric Pressure mm/Hg O2 Delivery Device BIPAP POC O2 Rate 14 POC FiO2 30 % IPAP 15 POC Sodium 136 (135-144) mmol/L Sodium (136-145) mmol/L POC Potassium 3.7 (3.3-5.0) mmol/L Potassium (3.5-5.1) mmol/L POC Chloride (101-112) mmol/L Chloride (98-107) mmol/L Carbon Dioxide (21-32) mmol/L POC Total CO2 23 L (24-31) mEq/l Anion Gap (3-11) POC Anion Gap (16-25) mmol/L POC BUN (7-18) mg/dl BUN (7-18) mg/dl Creatinine (0.6-1.4) mg/dl POC Creatinine (0.6-1.3) mg/dl Est Cr Clr Drug Dosing ml/min Est GFR ( Amer) Est GFR (Non-Af Amer) BUN/Creatinine Ratio (10-20) Glucose (70-99) mg/dl POC Glucose (70-99) mg/dl POC Glucose (other) (70-99) mg/dl Lactate (0.4-2.0) mmol/L Calcium (8.5-10.1) mg/dl POC Ioniz Calcium Gaetano (1.12-1.32) mmol/l Magnesium (1.8-2.4) mg/dl Total Bilirubin (0.2-1) mg/dl Direct Bilirubin (0-0.2) mg/dl AST (15-37) U/L ALT (12-78) U/L Alkaline Phosphatase (45-117) U/L Lactate Dehydrogenase 214 (87-241) U/L Troponin I (0-0.045) ng/ml NT-Pro-B Natriuret Pep Cancelled (0-900) pg/ml Total Protein (6.4-8.2) gm/dl Albumin (3.4-5.0) gm/dl Globulin (2.5-4.0) gm/dl Albumin/Globulin Ratio (0.9-2) Procalcitonin (0-0.5) ng/ml Urine Color Urine Appearance (Clear) Urine pH (4.5-7.5) Ur Specific [place] (1.000-1.030) Urine Protein (Negative) Urine Glucose (UA) (Negative) Urine Ketones (Negative) Urine Blood (Negative) Urine Nitrite (Negative) Urine Bilirubin (Negative) Urine Urobilinogen (Negative) Ur Leukocyte Esterase (Negative) Urine WBC (Auto) (0-5) /hpf Urine RBC (Auto) (0-4) /hpf U Hyaline Cast (Auto) (0-5) /lpf U Epithel Cells (Auto) (0-5) /lpf Urine Bacteria (Auto) (Negative) Ur Renal Epithelial Cell Nasal Screen MRSA (PCR) (Negative) Adenovirus (PCR) (NotDetected) B. pertussis DNA (PCR) (NotDetected) B.parapertussis DNA PCR (NotDetected) C. pneumoniae DNA (PCR) (NotDetected) Coronavirus (PCR) Coronavirus OC43 (PCR) (NotDetected) Coronavirus HKU1 (PCR) (NotDetected) Coronavirus 229E (PCR) (NotDetected) Coronavirus NL63 (PCR) (NotDetected) Human Metapneumovir PCR (NotDetected) Influenza Type A (PCR) (Neg) Influenza Type B (PCR) (Neg) M. pneumoniae (PCR) (NotDetected) Parainfluenza 1 (PCR) (NotDetected) Parainfluenza 2 (PCR) (NotDetected) Parainfluenza 3 (PCR) (NotDetected) Parainfluenza 4 (PCR) (NotDetected) RSV (PCR) (NotDetected) Respiratory Virus Sourc Entero/Rhino (PCR) (NotDetected) Misc Test Comment 05/04/19 05/04/19 05/04/19 Range/Units 13:18 13:18 13:09 WBC (4.8-10.8) K/uL RBC (4.7-6.1) M/uL Hgb (14.0-18.0) g/dL POC Hgb (14.0-18.0) g/dl Hct (42-52) % POC Hct (42-52) % MCV (80-100) fL MCH (25-34) pg MCHC (32-36) g/dL RDW Std Deviation (36.4-46.3) fL RDW Coeff of Alex (11.5-14.5) % Plt Count (130-400) K/uL MPV (7.4-10.4) fL Immature Gran % (Auto) % Neut % (Auto) % Lymph % (Auto) % Stark % (Auto) % Eos % (Auto) % Baso % (Auto) % Immature Gran # (Auto) (0.00-0.02) K/uL Neut # (Auto) (1.4-6.5) K/uL Lymph # (Auto) (1.2-3.4) K/uL Stark # (Auto) (0.11-0.59) K/uL Eos # (Auto) (0-0.5) K/uL Baso # (Auto) (0-0.2) K/uL PT (9.0-12.0) Seconds INR (0.9-1.1) APTT (21.0-31.0) Seconds PTT Ratio Sample Site POC pH (7.35-7.45) POC pCO2 (35-46) mmHg POC pO2 (80-95) mmHg POC HCO3 (19-24) guy/L POC Base Excess (-9-1.8) guy/L ABG pH (Temp Correct) (7.35-7.45) ABG pCO2 (Temp Corrct (35-46) mmHg POC ABG pO2 at Pt Temp Jovanni Test VBG pH (7.36-7.41) VBG pCO2 (38-50) mmHg VBG pO2 mmHg VBG HCO3 mmol/L VBG O2 Saturation % VBG Base Excess mEq/L Barometric Pressure mm/Hg O2 Delivery Device POC O2 Rate POC FiO2 % IPAP POC Sodium (135-144) mmol/L Sodium (136-145) mmol/L POC Potassium (3.3-5.0) mmol/L Potassium (3.5-5.1) mmol/L POC Chloride (101-112) mmol/L Chloride (98-107) mmol/L Carbon Dioxide (21-32) mmol/L POC Total CO2 (24-31) mEq/l Anion Gap (3-11) POC Anion Gap (16-25) mmol/L POC BUN (7-18) mg/dl BUN (7-18) mg/dl Creatinine (0.6-1.4) mg/dl POC Creatinine (0.6-1.3) mg/dl Est Cr Clr Drug Dosing ml/min Est GFR ( Amer) Est GFR (Non-Af Amer) BUN/Creatinine Ratio (10-20) Glucose (70-99) mg/dl POC Glucose (70-99) mg/dl POC Glucose (other) (70-99) mg/dl Lactate 2.1 H* (0.4-2.0) mmol/L Calcium (8.5-10.1) mg/dl POC Ioniz Calcium Gaetano (1.12-1.32) mmol/l Magnesium (1.8-2.4) mg/dl Total Bilirubin 0.9 (0.2-1) mg/dl Direct Bilirubin 0.2 (0-0.2) mg/dl AST 19 (15-37) U/L ALT 18 (12-78) U/L Alkaline Phosphatase 154 H (45-117) U/L Lactate Dehydrogenase (87-241) U/L Troponin I 0.076 H* (0-0.045) ng/ml NT-Pro-B Natriuret Pep 4372 H (0-900) pg/ml Total Protein 7.1 (6.4-8.2) gm/dl Albumin 2.9 L (3.4-5.0) gm/dl Globulin (2.5-4.0) gm/dl Albumin/Globulin Ratio (0.9-2) Procalcitonin (0-0.5) ng/ml Urine Color Urine Appearance (Clear) Urine pH (4.5-7.5) Ur Specific [place] (1.000-1.030) Urine Protein (Negative) Urine Glucose (UA) (Negative) Urine Ketones (Negative) Urine Blood (Negative) Urine Nitrite (Negative) Urine Bilirubin (Negative) Urine Urobilinogen (Negative) Ur Leukocyte Esterase (Negative) Urine WBC (Auto) (0-5) /hpf Urine RBC (Auto) (0-4) /hpf U Hyaline Cast (Auto) (0-5) /lpf U Epithel Cells (Auto) (0-5) /lpf Urine Bacteria (Auto) (Negative) Ur Renal Epithelial Cell Nasal Screen MRSA (PCR) (Negative) Adenovirus (PCR) (NotDetected) B. pertussis DNA (PCR) (NotDetected) B.parapertussis DNA PCR (NotDetected) C. pneumoniae DNA (PCR) (NotDetected) Coronavirus (PCR) Pending Coronavirus OC43 (PCR) (NotDetected) Coronavirus HKU1 (PCR) (NotDetected) Coronavirus 229E (PCR) (NotDetected) Coronavirus NL63 (PCR) (NotDetected) Human Metapneumovir PCR (NotDetected) Influenza Type A (PCR) (Neg) Influenza Type B (PCR) (Neg) M. pneumoniae (PCR) (NotDetected) Parainfluenza 1 (PCR) (NotDetected) Parainfluenza 2 (PCR) (NotDetected) Parainfluenza 3 (PCR) (NotDetected) Parainfluenza 4 (PCR) (NotDetected) RSV (PCR) (NotDetected) Respiratory Virus Sourc Pending Entero/Rhino (PCR) (NotDetected) Misc Test Comment Pending 05/04/19 05/04/19 05/04/19 Range/Units 13:09 10:23 10:05 WBC (4.8-10.8) K/uL RBC (4.7-6.1) M/uL Hgb (14.0-18.0) g/dL POC Hgb 13.9 L (14.0-18.0) g/dl Hct (42-52) % POC Hct 41 L (42-52) % MCV (80-100) fL MCH (25-34) pg MCHC (32-36) g/dL RDW Std Deviation (36.4-46.3) fL RDW Coeff of Alex (11.5-14.5) % Plt Count (130-400) K/uL MPV (7.4-10.4) fL Immature Gran % (Auto) % Neut % (Auto) % Lymph % (Auto) % Stark % (Auto) % Eos % (Auto) % Baso % (Auto) % Immature Gran # (Auto) (0.00-0.02) K/uL Neut # (Auto) (1.4-6.5) K/uL Lymph # (Auto) (1.2-3.4) K/uL Stark # (Auto) (0.11-0.59) K/uL Eos # (Auto) (0-0.5) K/uL Baso # (Auto) (0-0.2) K/uL PT (9.0-12.0) Seconds INR (0.9-1.1) APTT (21.0-31.0) Seconds PTT Ratio Sample Site POC pH (7.35-7.45) POC pCO2 (35-46) mmHg POC pO2 (80-95) mmHg POC HCO3 (19-24) guy/L POC Base Excess (-9-1.8) guy/L ABG pH (Temp Correct) (7.35-7.45) ABG pCO2 (Temp Corrct (35-46) mmHg POC ABG pO2 at Pt Temp Jovanni Test VBG pH 7.30 L (7.36-7.41) VBG pCO2 51 H (38-50) mmHg VBG pO2 29 mmHg VBG HCO3 24 mmol/L VBG O2 Saturation < 60.0 % VBG Base Excess -2.7 mEq/L Barometric Pressure 743.9 mm/Hg O2 Delivery Device POC O2 Rate POC FiO2 % IPAP POC Sodium 135 (135-144) mmol/L Sodium (136-145) mmol/L POC Potassium 3.7 (3.3-5.0) mmol/L Potassium (3.5-5.1) mmol/L POC Chloride 101 (101-112) mmol/L Chloride (98-107) mmol/L Carbon Dioxide (21-32) mmol/L POC Total CO2 24 (24-31) mEq/l Anion Gap (3-11) POC Anion Gap 15.0 L (16-25) mmol/L POC BUN 12 (7-18) mg/dl BUN (7-18) mg/dl Creatinine (0.6-1.4) mg/dl POC Creatinine 1.0 (0.6-1.3) mg/dl Est Cr Clr Drug Dosing ml/min Est GFR ( Amer) Est GFR (Non-Af Amer) BUN/Creatinine Ratio (10-20) Glucose (70-99) mg/dl POC Glucose (70-99) mg/dl POC Glucose (other) 172 H (70-99) mg/dl Lactate (0.4-2.0) mmol/L Calcium (8.5-10.1) mg/dl POC Ioniz Calcium Gaetano 1.08 L (1.12-1.32) mmol/l Magnesium (1.8-2.4) mg/dl Total Bilirubin (0.2-1) mg/dl Direct Bilirubin (0-0.2) mg/dl AST (15-37) U/L ALT (12-78) U/L Alkaline Phosphatase (45-117) U/L Lactate Dehydrogenase (87-241) U/L Troponin I (0-0.045) ng/ml NT-Pro-B Natriuret Pep (0-900) pg/ml Total Protein (6.4-8.2) gm/dl Albumin (3.4-5.0) gm/dl Globulin (2.5-4.0) gm/dl Albumin/Globulin Ratio (0.9-2) Procalcitonin (0-0.5) ng/ml Urine Color Urine Appearance (Clear) Urine pH (4.5-7.5) Ur Specific [place] (1.000-1.030) Urine Protein (Negative) Urine Glucose (UA) (Negative) Urine Ketones (Negative) Urine Blood (Negative) Urine Nitrite (Negative) Urine Bilirubin (Negative) Urine Urobilinogen (Negative) Ur Leukocyte Esterase (Negative) Urine WBC (Auto) (0-5) /hpf Urine RBC (Auto) (0-4) /hpf U Hyaline Cast (Auto) (0-5) /lpf U Epithel Cells (Auto) (0-5) /lpf Urine Bacteria (Auto) (Negative) Ur Renal Epithelial Cell Nasal Screen MRSA (PCR) (Negative) Adenovirus (PCR) Not Detected (NotDetected) B. pertussis DNA (PCR) Not Detected (NotDetected) B.parapertussis DNA PCR Not Detected (NotDetected) C. pneumoniae DNA (PCR) Not Detected (NotDetected) Coronavirus (PCR) Coronavirus OC43 (PCR) Not Detected (NotDetected) Coronavirus HKU1 (PCR) Not Detected (NotDetected) Coronavirus 229E (PCR) Not Detected (NotDetected) Coronavirus NL63 (PCR) Not Detected (NotDetected) Human Metapneumovir PCR Not Detected (NotDetected) Influenza Type A (PCR) Not Detected (Neg) Influenza Type B (PCR) Not Detected (Neg) M. pneumoniae (PCR) Not Detected (NotDetected) Parainfluenza 1 (PCR) Not Detected (NotDetected) Parainfluenza 2 (PCR) Not Detected (NotDetected) Parainfluenza 3 (PCR) Not Detected (NotDetected) Parainfluenza 4 (PCR) Not Detected (NotDetected) RSV (PCR) DETECTED A* (NotDetected) Respiratory Virus Sourc Entero/Rhino (PCR) Not Detected (NotDetected) Misc Test Comment 05/04/19 05/04/19 05/04/19 Range/Units 10:05 10:05 10:05 WBC (4.8-10.8) K/uL RBC (4.7-6.1) M/uL Hgb (14.0-18.0) g/dL POC Hgb (14.0-18.0) g/dl Hct (42-52) % POC Hct (42-52) % MCV (80-100) fL MCH (25-34) pg MCHC (32-36) g/dL RDW Std Deviation (36.4-46.3) fL RDW Coeff of Alex (11.5-14.5) % Plt Count (130-400) K/uL MPV (7.4-10.4) fL Immature Gran % (Auto) % Neut % (Auto) % Lymph % (Auto) % Stark % (Auto) % Eos % (Auto) % Baso % (Auto) % Immature Gran # (Auto) (0.00-0.02) K/uL Neut # (Auto) (1.4-6.5) K/uL Lymph # (Auto) (1.2-3.4) K/uL Stark # (Auto) (0.11-0.59) K/uL Eos # (Auto) (0-0.5) K/uL Baso # (Auto) (0-0.2) K/uL PT (9.0-12.0) Seconds INR (0.9-1.1) APTT (21.0-31.0) Seconds PTT Ratio Sample Site POC pH (7.35-7.45) POC pCO2 (35-46) mmHg POC pO2 (80-95) mmHg POC HCO3 (19-24) guy/L POC Base Excess (-9-1.8) guy/L ABG pH (Temp Correct) (7.35-7.45) ABG pCO2 (Temp Corrct (35-46) mmHg POC ABG pO2 at Pt Temp Jovanni Test VBG pH (7.36-7.41) VBG pCO2 (38-50) mmHg VBG pO2 mmHg VBG HCO3 mmol/L VBG O2 Saturation % VBG Base Excess mEq/L Barometric Pressure mm/Hg O2 Delivery Device POC O2 Rate POC FiO2 % IPAP POC Sodium (135-144) mmol/L Sodium 134 L (136-145) mmol/L POC Potassium (3.3-5.0) mmol/L Potassium 3.7 (3.5-5.1) mmol/L POC Chloride (101-112) mmol/L Chloride 102 (98-107) mmol/L Carbon Dioxide 24 (21-32) mmol/L POC Total CO2 (24-31) mEq/l Anion Gap 7.0 (3-11) POC Anion Gap (16-25) mmol/L POC BUN (7-18) mg/dl BUN 13 (7-18) mg/dl Creatinine 1.16 (0.6-1.4) mg/dl POC Creatinine (0.6-1.3) mg/dl Est Cr Clr Drug Dosing 65.9 ml/min Est GFR ( Amer) 72.5 Est GFR (Non-Af Amer) 62.6 BUN/Creatinine Ratio 11.0 (10-20) Glucose 169 H (70-99) mg/dl POC Glucose (70-99) mg/dl POC Glucose (other) (70-99) mg/dl Lactate 2.0 (0.4-2.0) mmol/L Calcium 8.7 (8.5-10.1) mg/dl POC Ioniz Calcium Gaetano (1.12-1.32) mmol/l Magnesium 1.8 (1.8-2.4) mg/dl Total Bilirubin 1.0 (0.2-1) mg/dl Direct Bilirubin (0-0.2) mg/dl AST 23 (15-37) U/L ALT 20 (12-78) U/L Alkaline Phosphatase 184 H (45-117) U/L Lactate Dehydrogenase (87-241) U/L Troponin I < 0.015 (0-0.045) ng/ml NT-Pro-B Natriuret Pep (0-900) pg/ml Total Protein 8.2 (6.4-8.2) gm/dl Albumin 3.6 (3.4-5.0) gm/dl Globulin 4.6 H (2.5-4.0) gm/dl Albumin/Globulin Ratio 0.8 L (0.9-2) Procalcitonin 0.07 (0-0.5) ng/ml Urine Color Urine Appearance (Clear) Urine pH (4.5-7.5) Ur Specific [place] (1.000-1.030) Urine Protein (Negative) Urine Glucose (UA) (Negative) Urine Ketones (Negative) Urine Blood (Negative) Urine Nitrite (Negative) Urine Bilirubin (Negative) Urine Urobilinogen (Negative) Ur Leukocyte Esterase (Negative) Urine WBC (Auto) (0-5) /hpf Urine RBC (Auto) (0-4) /hpf U Hyaline Cast (Auto) (0-5) /lpf U Epithel Cells (Auto) (0-5) /lpf Urine Bacteria (Auto) (Negative) Ur Renal Epithelial Cell Nasal Screen MRSA (PCR) (Negative) Adenovirus (PCR) (NotDetected) B. pertussis DNA (PCR) (NotDetected) B.parapertussis DNA PCR (NotDetected) C. pneumoniae DNA (PCR) (NotDetected) Coronavirus (PCR) Coronavirus OC43 (PCR) (NotDetected) Coronavirus HKU1 (PCR) (NotDetected) Coronavirus 229E (PCR) (NotDetected) Coronavirus NL63 (PCR) (NotDetected) Human Metapneumovir PCR (NotDetected) Influenza Type A (PCR) (Neg) Influenza Type B (PCR) (Neg) M. pneumoniae (PCR) (NotDetected) Parainfluenza 1 (PCR) (NotDetected) Parainfluenza 2 (PCR) (NotDetected) Parainfluenza 3 (PCR) (NotDetected) Parainfluenza 4 (PCR) (NotDetected) RSV (PCR) (NotDetected) Respiratory Virus Sourc Entero/Rhino (PCR) (NotDetected) Misc Test Comment 05/04/19 05/04/19 05/04/19 Range/Units 10:05 10:05 10:00 WBC 9.48 (4.8-10.8) K/uL RBC 4.51 L (4.7-6.1) M/uL Hgb 13.6 L (14.0-18.0) g/dL POC Hgb (14.0-18.0) g/dl Hct 40.8 L (42-52) % POC Hct (42-52) % MCV 90.5 (80-100) fL MCH 30.2 (25-34) pg MCHC 33.3 (32-36) g/dL RDW Std Deviation 53.2 H (36.4-46.3) fL RDW Coeff of Alex 16.0 H (11.5-14.5) % Plt Count 161 (130-400) K/uL MPV 9.6 (7.4-10.4) fL Immature Gran % (Auto) 0.5 % Neut % (Auto) 82.6 % Lymph % (Auto) 11.0 % Stark % (Auto) 5.0 % Eos % (Auto) 0.5 % Baso % (Auto) 0.4 % Immature Gran # (Auto) 0.05 H (0.00-0.02) K/uL Neut # (Auto) 7.83 H (1.4-6.5) K/uL Lymph # (Auto) 1.04 L (1.2-3.4) K/uL Stark # (Auto) 0.47 (0.11-0.59) K/uL Eos # (Auto) 0.05 (0-0.5) K/uL Baso # (Auto) 0.04 (0-0.2) K/uL PT 26.1 H (9.0-12.0) Seconds INR 2.6 H (0.9-1.1) APTT 31.8 H (21.0-31.0) Seconds PTT Ratio 1.1 Sample Site POC pH (7.35-7.45) POC pCO2 (35-46) mmHg POC pO2 (80-95) mmHg POC HCO3 (19-24) guy/L POC Base Excess (-9-1.8) guy/L ABG pH (Temp Correct) (7.35-7.45) ABG pCO2 (Temp Corrct (35-46) mmHg POC ABG pO2 at Pt Temp Jovanni Test VBG pH (7.36-7.41) VBG pCO2 (38-50) mmHg VBG pO2 mmHg VBG HCO3 mmol/L VBG O2 Saturation % VBG Base Excess mEq/L Barometric Pressure mm/Hg O2 Delivery Device POC O2 Rate POC FiO2 % IPAP POC Sodium (135-144) mmol/L Sodium (136-145) mmol/L POC Potassium (3.3-5.0) mmol/L Potassium (3.5-5.1) mmol/L POC Chloride (101-112) mmol/L Chloride (98-107) mmol/L Carbon Dioxide (21-32) mmol/L POC Total CO2 (24-31) mEq/l Anion Gap (3-11) POC Anion Gap (16-25) mmol/L POC BUN (7-18) mg/dl BUN (7-18) mg/dl Creatinine (0.6-1.4) mg/dl POC Creatinine (0.6-1.3) mg/dl Est Cr Clr Drug Dosing ml/min Est GFR ( Amer) Est GFR (Non-Af Amer) BUN/Creatinine Ratio (10-20) Glucose (70-99) mg/dl POC Glucose (70-99) mg/dl POC Glucose (other) (70-99) mg/dl Lactate (0.4-2.0) mmol/L Calcium (8.5-10.1) mg/dl POC Ioniz Calcium Gaetano (1.12-1.32) mmol/l Magnesium (1.8-2.4) mg/dl Total Bilirubin (0.2-1) mg/dl Direct Bilirubin (0-0.2) mg/dl AST (15-37) U/L ALT (12-78) U/L Alkaline Phosphatase (45-117) U/L Lactate Dehydrogenase (87-241) U/L Troponin I (0-0.045) ng/ml NT-Pro-B Natriuret Pep (0-900) pg/ml Total Protein (6.4-8.2) gm/dl Albumin (3.4-5.0) gm/dl Globulin (2.5-4.0) gm/dl Albumin/Globulin Ratio (0.9-2) Procalcitonin (0-0.5) ng/ml Urine Color Urine Appearance (Clear) Urine pH (4.5-7.5) Ur Specific [place] (1.000-1.030) Urine Protein (Negative) Urine Glucose (UA) (Negative) Urine Ketones (Negative) Urine Blood (Negative) Urine Nitrite (Negative) Urine Bilirubin (Negative) Urine Urobilinogen (Negative) Ur Leukocyte Esterase (Negative) Urine WBC (Auto) (0-5) /hpf Urine RBC (Auto) (0-4) /hpf U Hyaline Cast (Auto) (0-5) /lpf U Epithel Cells (Auto) (0-5) /lpf Urine Bacteria (Auto) (Negative) Ur Renal Epithelial Cell Nasal Screen MRSA (PCR) (Negative) Adenovirus (PCR) (NotDetected) B. pertussis DNA (PCR) (NotDetected) B.parapertussis DNA PCR (NotDetected) C. pneumoniae DNA (PCR) (NotDetected) Coronavirus (PCR) Coronavirus OC43 (PCR) (NotDetected) Coronavirus HKU1 (PCR) (NotDetected) Coronavirus 229E (PCR) (NotDetected) Coronavirus NL63 (PCR) (NotDetected) Human Metapneumovir PCR (NotDetected) Influenza Type A (PCR) Neg for Influ A (Neg) Influenza Type B (PCR) Neg for Influ B (Neg) M. pneumoniae (PCR) (NotDetected) Parainfluenza 1 (PCR) (NotDetected) Parainfluenza 2 (PCR) (NotDetected) Parainfluenza 3 (PCR) (NotDetected) Parainfluenza 4 (PCR) (NotDetected) RSV (PCR) (NotDetected) Respiratory Virus Sourc Entero/Rhino (PCR) (NotDetected) Misc Test Comment 05/04/19 Range/Units 10:00 WBC (4.8-10.8) K/uL RBC (4.7-6.1) M/uL Hgb (14.0-18.0) g/dL POC Hgb (14.0-18.0) g/dl Hct (42-52) % POC Hct (42-52) % MCV (80-100) fL MCH (25-34) pg MCHC (32-36) g/dL RDW Std Deviation (36.4-46.3) fL RDW Coeff of Alex (11.5-14.5) % Plt Count (130-400) K/uL MPV (7.4-10.4) fL Immature Gran % (Auto) % Neut % (Auto) % Lymph % (Auto) % Stark % (Auto) % Eos % (Auto) % Baso % (Auto) % Immature Gran # (Auto) (0.00-0.02) K/uL Neut # (Auto) (1.4-6.5) K/uL Lymph # (Auto) (1.2-3.4) K/uL Stark # (Auto) (0.11-0.59) K/uL Eos # (Auto) (0-0.5) K/uL Baso # (Auto) (0-0.2) K/uL PT (9.0-12.0) Seconds INR (0.9-1.1) APTT (21.0-31.0) Seconds PTT Ratio Sample Site POC pH (7.35-7.45) POC pCO2 (35-46) mmHg POC pO2 (80-95) mmHg POC HCO3 (19-24) guy/L POC Base Excess (-9-1.8) guy/L ABG pH (Temp Correct) (7.35-7.45) ABG pCO2 (Temp Corrct (35-46) mmHg POC ABG pO2 at Pt Temp Jovanni Test VBG pH (7.36-7.41) VBG pCO2 (38-50) mmHg VBG pO2 mmHg VBG HCO3 mmol/L VBG O2 Saturation % VBG Base Excess mEq/L Barometric Pressure mm/Hg O2 Delivery Device POC O2 Rate POC FiO2 % IPAP POC Sodium (135-144) mmol/L Sodium (136-145) mmol/L POC Potassium (3.3-5.0) mmol/L Potassium (3.5-5.1) mmol/L POC Chloride (101-112) mmol/L Chloride (98-107) mmol/L Carbon Dioxide (21-32) mmol/L POC Total CO2 (24-31) mEq/l Anion Gap (3-11) POC Anion Gap (16-25) mmol/L POC BUN (7-18) mg/dl BUN (7-18) mg/dl Creatinine (0.6-1.4) mg/dl POC Creatinine (0.6-1.3) mg/dl Est Cr Clr Drug Dosing ml/min Est GFR ( Amer) Est GFR (Non-Af Amer) BUN/Creatinine Ratio (10-20) Glucose (70-99) mg/dl POC Glucose (70-99) mg/dl POC Glucose (other) (70-99) mg/dl Lactate (0.4-2.0) mmol/L Calcium (8.5-10.1) mg/dl POC Ioniz Calcium Gaetano (1.12-1.32) mmol/l Magnesium (1.8-2.4) mg/dl Total Bilirubin (0.2-1) mg/dl Direct Bilirubin (0-0.2) mg/dl AST (15-37) U/L ALT (12-78) U/L Alkaline Phosphatase (45-117) U/L Lactate Dehydrogenase (87-241) U/L Troponin I (0-0.045) ng/ml NT-Pro-B Natriuret Pep (0-900) pg/ml Total Protein (6.4-8.2) gm/dl Albumin (3.4-5.0) gm/dl Globulin (2.5-4.0) gm/dl Albumin/Globulin Ratio (0.9-2) Procalcitonin (0-0.5) ng/ml Urine Color Yellow Urine Appearance Clear (Clear) Urine pH 7.5 (4.5-7.5) Ur Specific [place] 1.015 (1.000-1.030) Urine Protein 3+ H (Negative) Urine Glucose (UA) Negative (Negative) Urine Ketones Negative (Negative) Urine Blood 3+ H (Negative) Urine Nitrite Negative (Negative) Urine Bilirubin Negative (Negative) Urine Urobilinogen Negative (Negative) Ur Leukocyte Esterase Negative (Negative) Urine WBC (Auto) 1-5 (0-5) /hpf Urine RBC (Auto) >30 H (0-4) /hpf U Hyaline Cast (Auto) 1-5 (0-5) /lpf U Epithel Cells (Auto) >30 H (0-5) /lpf Urine Bacteria (Auto) 1+ H (Negative) Ur Renal Epithelial Cell Not Reportable Nasal Screen MRSA (PCR) (Negative) Adenovirus (PCR) (NotDetected) B. pertussis DNA (PCR) (NotDetected) B.parapertussis DNA PCR (NotDetected) C. pneumoniae DNA (PCR) (NotDetected) Coronavirus (PCR) Coronavirus OC43 (PCR) (NotDetected) Coronavirus HKU1 (PCR) (NotDetected) Coronavirus 229E (PCR) (NotDetected) Coronavirus NL63 (PCR) (NotDetected) Human Metapneumovir PCR (NotDetected) Influenza Type A (PCR) (Neg) Influenza Type B (PCR) (Neg) M. pneumoniae (PCR) (NotDetected) Parainfluenza 1 (PCR) (NotDetected) Parainfluenza 2 (PCR) (NotDetected) Parainfluenza 3 (PCR) (NotDetected) Parainfluenza 4 (PCR) (NotDetected) RSV (PCR) (NotDetected) Respiratory Virus Sourc Entero/Rhino (PCR) (NotDetected) Misc Test Comment Medications Administered Current Inpatient Medications Albuterol (Duoneb) 3 ml NEB Q4R ANTONIO Stop: 06/03/19 14:59 Last Admin: 05/05/19 04:14 Dose: 3 ml Documented by: Diltiazem HCl 125 mg/ Dextrose 125 mls @ 15 mls/hr IV .[id number] ANTONIO; Protocol Stop: 06/03/19 10:29 Last Admin: 05/04/19 23:47 Dose: 15 mg/hr, 15 mls/hr Documented by: Vancomycin HCl 1,500 mg/ (Sodium Chloride) 530 mls @ 200 mls/hr IV Q14H ANTONIO Stop: 05/12/19 00:00 Last Infusion: 05/05/19 03:12 Dose: Infused Documented by: Cefepime HCl 2,000 mg/ Syringe 20 mls @ 5 mls/min IV Q8H ANTONIO; Protocol Stop: 05/11/19 17:59 Last Admin: 05/05/19 02:49 Dose: 5 mls/min Documented by: Miscellaneous (Icu Protocol For Hyperglycemia) 1 ea N/A PRN PRN; Protocol PRN Reason: Hyperglycemia Protocol Stop: 05/06/19 12:05 Miscellaneous Information (Consult) 1 ea N/A UD PRN PRN Reason: Consult Stop: 06/03/19 12:05 Miscellaneous Information (Cefepime Consult Active) 1 ea N/A UD PRN PRN Reason: Consult Stop: 06/03/19 12:10 Ondansetron HCl (Zofran) 4 mg IV Q4H PRN PRN Reason: Nausea Stop: 06/04/19 04:58 PG Care Time/CCT Total # of Minutes Spent Total Time Spent with Patient: Total time spent is greater than 50% in coordination of care (as documented) at patient's floor/unit and/or counseling patient: Coding Diagnoses Respiratory syncytial virus pneumonia J12.1 Atrial fibrillation with RVR I48.91 Sepsis A41.9 BARBARA (obstructive sleep apnea) G47.33 Dementia F03.90 Dementia behavioral disturbance: without behavioral disturbance Dementia type: unspecified type Resident Activity Tracking Resident Involvement: Resident Care Provided Care Provided: Adult Hospital Medicine (1) Dementia Dementia behavioral disturbance: without behavioral disturbance Dementia type: unspecified type Qualified Code(s): F03.90 - Unspecified dementia without behavioral disturbance
--- NOTE | 2019-05-05 07:40 | XRay Report ---
KUB HISTORY: Vomiting COMPARISON: Abdomen and pelvis CT 02/26/2019. KUB 02/08/2019. FINDINGS: Rectal thermometer is noted overlying the deep pelvis. Moderate to severe gaseous distentio n of the stomach. A few mildly dilated gas-filled loops of small bowel within the abdomen. There is a lso gas within the colon. No renal calculi. No ureteral calculi. No pneumoperitoneum or pneumatosis. IMPRESSION: 1. Moderate to severe gaseous distention of the stomach. There are also a few mildly dilated gas-fill ed small bowel. This could represent a bowel obstruction. Consider NG tube placement for decompressio n of the stomach. ACT 112: Negative or not required by law. Electronically signed by: Terrence Huizar M.D. 05/05/2019 7:39 AM
--- NOTE | 2019-05-05 08:01 | Critical Care Progress Note ---
Date of Service May 05, 2019 Assessment & Plan (1) Respiratory syncytial virus pneumonia: Ricardo Krishnan is a 73y/o M w/ PMH of chronic atrial fibrillation on warfarin, hypercholesterolemia, senile dementia, CAD, CHF the presented on 05/03 with acute shortness of breath and hypoxia Neuro: - [facility] ICU: positive - patient has baseline dementia - patient placed in mittens for continued patient protection, as he has continued to pull at all lines and tubes Cardiac/vascular: - patient has chronic A. fib, CAD, CHF, and hypercholestermia - Diltiazem 125mls @ 15ml/hr Q8; Metoprolol Tartrate 2.5mg IV Q4 - cardiology is following - Echo demonstrated normal LV size, hyperdynamic systolic function, EF>70%, no regional wall motion abnormalities, moderate left atrial dilation, mild right atrial dilation, and mild pulmonary hypertension Respiratory: - Influenza negative, BioFire positive for RSV - maintaining sats >92% on 6L Oxymask; BiPAP QHS - CT Abd/Pelv: demonstrated minimal atelectasis right base, and consolidative infiltrate left base GI/Nutrition: - NPO - gastric distention demonstrated on KUB 05/04 - NG tube placed for reduction of gastric bubble; subsequent, CT Abd/Pelvis demonstrated non-obstructive bowel pattern, with no evidence of bowel distention Renal/Lytes: - no significant electrolyte abnormalities - ionized calcium pending : - continue strict I&Os. Endo: - no past medical history of T2DM, or hypothyroidism Heme: - Stable H&H - continue to monitor ID: - Influenza negative, Biofire positive for RSV - on Cefepime 2000mg Q12h, Levaquin Q24h LINES/IV ACCESS: - PIVs - Nasogastric tube DVT PROPHYLAXIS: - SCDs (2) Atrial fibrillation with RVR: (3) Sepsis: (4) BARBARA (obstructive sleep apnea): (5) Dementia: Admission and Anticipated Discharge Date Admission Date: May 04, 2019 Supervising Physician Co-Signing Physician Notes Dr. Layne was resident physician during care of patient. I separately evaluated patient for jang portions of the history and the exam. I was present during the critical portion of medical decision making, and I discussed the case with the resident. I generally agree with the findings and plan. Patient critically ill from atrial fibrillation with rapid ventricular response. This is most likely secondary to a RSV pneumonia via bio fire. In discussion with multiple stakeholders and administration, the bio fire being positive likely represents total infection risk and we would consider COVID-19 highly unlikely as he does not have a travel history nor significant exposure history and the constellation of symptoms can be explained with the positive RSV test. Discussed with cardiology. Adding additional beta-giovany and continue to treat fever. Subjective Overnight, patient pulled his BiPAP several times; early this AM vomited several times, and tried to pull his lines out. Review of Systems Review of Systems: Unobtainable due to cognitive status Physical Exam Constitutional: patient is laying in bed, pulling at BiPAP Eyes: PERRL, conjunctivae normal, anicteric sclerae Neck: normal visual inspection Respiratory: normal respiratory effort, lungs clear to auscultation Cardiovascular: Rate/Rhythm: regular rate and regular rhythm Heart Sounds: normal S1 and normal S2; no gallop, no murmur and no cardiac rub Gastrointestinal (Abdomen): Inspection/Auscultation: + abdomen distended Percussion/Palpation: abdomen soft; abdomen nontender, no guarding and no hepatosplenomegaly Musculoskeletal: no cyanosis or clubbing, extremities motor strength 5/5 Skin: no rashes, warm and dry Neurologic: PERRL, EOMI, accommodation nl, no face palsy, no dysarthria Psychiatric: Orientation: alert Insight: not poor insight Judgement: not poor judgement Lymphatic: no cervical or axillary lymphadenopathy Results & Data ([facility]) Vital Signs (Past 12 Hours) Vital Signs Temp Pulse Pulse Resp BP Pulse Ox 05/05/19 07:53 120 H 28 H 90 05/05/19 06:34 96 H 33 H 137/75 93 05/05/19 06:04 36.6 C 102 H 42 H 114/70 91 05/05/19 05:34 117 H 37 H 116/83 94 05/05/19 05:04 127 H 32 H 147/79 H 88 L 05/05/19 04:34 124 H 32 H 130/75 98 05/05/19 04:14 106 H 26 H 96 05/05/19 04:04 36.8 C 115 H 25 H 133/93 95 05/05/19 03:34 139 H 29 H 133/80 97 05/05/19 03:04 126 H 24 126/95 95 05/05/19 02:34 118 H 21 129/103 H 98 05/05/19 02:04 36.8 C 112 H 21 126/107 H 97 05/05/19 01:34 114 H 24 135/82 98 05/05/19 01:26 133 H 24 97 05/05/19 01:03 106 H 35 H 156/72 H 96 05/05/19 00:35 121 H 24 129/89 97 05/05/19 00:04 39 C H 106 H 27 H 139/77 97 05/04/19 23:48 163 H 173/113 H 05/04/19 23:34 129 H 31 H 172/113 H 95 05/04/19 23:04 128 H 24 182/90 H 98 05/04/19 22:34 165 H 19 89/67 L 88 L 05/04/19 22:26 147 H 28 H 97 05/04/19 22:04 37.9 C H 134 H 27 H 137/83 05/04/19 21:33 105 H 24 161/86 H 99 05/04/19 21:04 127 H 32 H 171/94 H 98 05/04/19 20:45 147 H 33 H 86 L 05/04/19 20:34 127 H 29 H 114/98 88 L 05/04/19 20:05 122 H 34 H 158/97 H 87 L Laboratory Results 05/05/19 05/05/19 05/05/19 Range/Units 05:21 05:21 05:21 WBC (4.8-10.8) K/uL RBC (4.7-6.1) M/uL Hgb (14.0-18.0) g/dL POC Hgb (14.0-18.0) g/dl Hct (42-52) % POC Hct (42-52) % MCV (80-100) fL MCH (25-34) pg MCHC (32-36) g/dL RDW Std Deviation (36.4-46.3) fL RDW Coeff of Alex (11.5-14.5) % Plt Count (130-400) K/uL MPV (7.4-10.4) fL Immature Gran % (Auto) % Neut % (Auto) % Lymph % (Auto) % Carter % (Auto) % Eos % (Auto) % Baso % (Auto) % Immature Gran # (Auto) (0.00-0.02) K/uL Neut # (Auto) (1.4-6.5) K/uL Lymph # (Auto) (1.2-3.4) K/uL Carter # (Auto) (0.11-0.59) K/uL Eos # (Auto) (0-0.5) K/uL Baso # (Auto) (0-0.2) K/uL PT 34.8 H (9.0-12.0) Seconds INR 3.5 H (0.9-1.1) APTT (21.0-31.0) Seconds PTT Ratio Sample Site POC pH (7.35-7.45) POC pCO2 (35-46) mmHg POC pO2 (80-95) mmHg POC HCO3 (19-24) guy/L POC Base Excess (-9-1.8) guy/L ABG pH (Temp Correct) (7.35-7.45) ABG pCO2 (Temp Corrct (35-46) mmHg POC ABG pO2 at Pt Temp Jovanni Test VBG pH (7.36-7.41) VBG pCO2 (38-50) mmHg VBG pO2 mmHg VBG HCO3 mmol/L VBG O2 Saturation % VBG Base Excess mEq/L Barometric Pressure mm/Hg O2 Delivery Device POC O2 Rate POC FiO2 % IPAP POC Sodium (135-144) mmol/L Sodium 137 (136-145) mmol/L POC Potassium (3.3-5.0) mmol/L Potassium 3.7 (3.5-5.1) mmol/L POC Chloride (101-112) mmol/L Chloride 103 (98-107) mmol/L Carbon Dioxide 27 (21-32) mmol/L POC Total CO2 (24-31) mEq/l Anion Gap 7.0 (3-11) POC Anion Gap (16-25) mmol/L POC BUN (7-18) mg/dl BUN 14 (7-18) mg/dl Creatinine 1.32 (0.6-1.4) mg/dl POC Creatinine (0.6-1.3) mg/dl Est Cr Clr Drug Dosing 57.9 ml/min Est GFR ( Amer) 62.0 Est GFR (Non-Af Amer) 53.5 BUN/Creatinine Ratio 10.3 (10-20) Glucose 196 H (70-99) mg/dl POC Glucose (70-99) mg/dl POC Glucose (other) (70-99) mg/dl Lactate 4.3 H* (0.4-2.0) mmol/L Calcium 8.5 (8.5-10.1) mg/dl POC Ioniz Calcium Gaetano (1.12-1.32) mmol/l Magnesium 2.0 (1.8-2.4) mg/dl Total Bilirubin (0.2-1) mg/dl Direct Bilirubin (0-0.2) mg/dl AST (15-37) U/L ALT (12-78) U/L Alkaline Phosphatase (45-117) U/L Lactate Dehydrogenase (87-241) U/L Troponin I (0-0.045) ng/ml NT-Pro-B Natriuret Pep (0-900) pg/ml Total Protein (6.4-8.2) gm/dl Albumin (3.4-5.0) gm/dl Globulin (2.5-4.0) gm/dl Albumin/Globulin Ratio (0.9-2) Procalcitonin (0-0.5) ng/ml Urine Color Urine Appearance (Clear) Urine pH (4.5-7.5) Ur Specific [place] (1.000-1.030) Urine Protein (Negative) Urine Glucose (UA) (Negative) Urine Ketones (Negative) Urine Blood (Negative) Urine Nitrite (Negative) Urine Bilirubin (Negative) Urine Urobilinogen (Negative) Ur Leukocyte Esterase (Negative) Urine WBC (Auto) (0-5) /hpf Urine RBC (Auto) (0-4) /hpf U Hyaline Cast (Auto) (0-5) /lpf U Epithel Cells (Auto) (0-5) /lpf Urine Bacteria (Auto) (Negative) Ur Renal Epithelial Cell Nasal Screen MRSA (PCR) (Negative) Adenovirus (PCR) (NotDetected) B. pertussis DNA (PCR) (NotDetected) B.parapertussis DNA PCR (NotDetected) C. pneumoniae DNA (PCR) (NotDetected) Coronavirus (PCR) Coronavirus OC43 (PCR) (NotDetected) Coronavirus HKU1 (PCR) (NotDetected) Coronavirus 229E (PCR) (NotDetected) Coronavirus NL63 (PCR) (NotDetected) Human Metapneumovir PCR (NotDetected) Influenza Type A (PCR) (Neg) Influenza Type B (PCR) (Neg) M. pneumoniae (PCR) (NotDetected) Parainfluenza 1 (PCR) (NotDetected) Parainfluenza 2 (PCR) (NotDetected) Parainfluenza 3 (PCR) (NotDetected) Parainfluenza 4 (PCR) (NotDetected) RSV (PCR) (NotDetected) Respiratory Virus [facility] Entero/Rhino (PCR) (NotDetected) Misc Test Comment 05/05/19 05/05/19 05/05/19 Range/Units 05:21 00:13 00:07 WBC 11.98 H (4.8-10.8) K/uL RBC 4.24 L (4.7-6.1) M/uL Hgb 12.7 L (14.0-18.0) g/dL POC Hgb (14.0-18.0) g/dl Hct 39.5 L (42-52) % POC Hct (42-52) % MCV 93.2 (80-100) fL MCH 30.0 (25-34) pg MCHC 32.2 (32-36) g/dL RDW Std Deviation 56.2 H (36.4-46.3) fL RDW Coeff of Alex 16.5 H (11.5-14.5) % Plt Count 147 (130-400) K/uL MPV 10.1 (7.4-10.4) fL Immature Gran % (Auto) 0.3 % Neut % (Auto) 87.4 % Lymph % (Auto) 6.7 % Carter % (Auto) 5.3 % Eos % (Auto) 0.0 % Baso % (Auto) 0.3 % Immature Gran # (Auto) 0.03 H (0.00-0.02) K/uL Neut # (Auto) 10.48 H (1.4-6.5) K/uL Lymph # (Auto) 0.80 L (1.2-3.4) K/uL Carter # (Auto) 0.64 H (0.11-0.59) K/uL Eos # (Auto) 0.00 (0-0.5) K/uL Baso # (Auto) 0.03 (0-0.2) K/uL PT (9.0-12.0) Seconds INR (0.9-1.1) APTT (21.0-31.0) Seconds PTT Ratio Sample Site POC pH (7.35-7.45) POC pCO2 (35-46) mmHg POC pO2 (80-95) mmHg POC HCO3 (19-24) guy/L POC Base Excess (-9-1.8) guy/L ABG pH (Temp Correct) (7.35-7.45) ABG pCO2 (Temp Corrct (35-46) mmHg POC ABG pO2 at Pt Temp Jovanni Test VBG pH (7.36-7.41) VBG pCO2 (38-50) mmHg VBG pO2 mmHg VBG HCO3 mmol/L VBG O2 Saturation % VBG Base Excess mEq/L Barometric Pressure mm/Hg O2 Delivery Device POC O2 Rate POC FiO2 % IPAP POC Sodium (135-144) mmol/L Sodium (136-145) mmol/L POC Potassium (3.3-5.0) mmol/L Potassium (3.5-5.1) mmol/L POC Chloride (101-112) mmol/L Chloride (98-107) mmol/L Carbon Dioxide (21-32) mmol/L POC Total CO2 (24-31) mEq/l Anion Gap (3-11) POC Anion Gap (16-25) mmol/L POC BUN (7-18) mg/dl BUN (7-18) mg/dl Creatinine (0.6-1.4) mg/dl POC Creatinine (0.6-1.3) mg/dl Est Cr Clr Drug Dosing ml/min Est GFR ( Amer) Est GFR (Non-Af Amer) BUN/Creatinine Ratio (10-20) Glucose (70-99) mg/dl POC Glucose 141 H (70-99) mg/dl POC Glucose (other) (70-99) mg/dl Lactate (0.4-2.0) mmol/L Calcium (8.5-10.1) mg/dl POC Ioniz Calcium Gaetano (1.12-1.32) mmol/l Magnesium (1.8-2.4) mg/dl Total Bilirubin (0.2-1) mg/dl Direct Bilirubin (0-0.2) mg/dl AST (15-37) U/L ALT (12-78) U/L Alkaline Phosphatase (45-117) U/L Lactate Dehydrogenase (87-241) U/L Troponin I 0.065 H* (0-0.045) ng/ml NT-Pro-B Natriuret Pep (0-900) pg/ml Total Protein (6.4-8.2) gm/dl Albumin (3.4-5.0) gm/dl Globulin (2.5-4.0) gm/dl Albumin/Globulin Ratio (0.9-2) Procalcitonin (0-0.5) ng/ml Urine Color Urine Appearance (Clear) Urine pH (4.5-7.5) Ur Specific [place] (1.000-1.030) Urine Protein (Negative) Urine Glucose (UA) (Negative) Urine Ketones (Negative) Urine Blood (Negative) Urine Nitrite (Negative) Urine Bilirubin (Negative) Urine Urobilinogen (Negative) Ur Leukocyte Esterase (Negative) Urine WBC (Auto) (0-5) /hpf Urine RBC (Auto) (0-4) /hpf U Hyaline Cast (Auto) (0-5) /lpf U Epithel Cells (Auto) (0-5) /lpf Urine Bacteria (Auto) (Negative) Ur Renal Epithelial Cell Nasal Screen MRSA (PCR) (Negative) Adenovirus (PCR) (NotDetected) B. pertussis DNA (PCR) (NotDetected) B.parapertussis DNA PCR (NotDetected) C. pneumoniae DNA (PCR) (NotDetected) Coronavirus (PCR) Coronavirus OC43 (PCR) (NotDetected) Coronavirus HKU1 (PCR) (NotDetected) Coronavirus 229E (PCR) (NotDetected) Coronavirus NL63 (PCR) (NotDetected) Human Metapneumovir PCR (NotDetected) Influenza Type A (PCR) (Neg) Influenza Type B (PCR) (Neg) M. pneumoniae (PCR) (NotDetected) Parainfluenza 1 (PCR) (NotDetected) Parainfluenza 2 (PCR) (NotDetected) Parainfluenza 3 (PCR) (NotDetected) Parainfluenza 4 (PCR) (NotDetected) RSV (PCR) (NotDetected) Respiratory Virus Sourc Entero/Rhino (PCR) (NotDetected) Misc Test Comment 05/04/19 05/04/19 05/04/19 Range/Units 23:40 18:33 14:01 WBC (4.8-10.8) K/uL RBC (4.7-6.1) M/uL Hgb (14.0-18.0) g/dL POC Hgb (14.0-18.0) g/dl Hct (42-52) % POC Hct (42-52) % MCV (80-100) fL MCH (25-34) pg MCHC (32-36) g/dL RDW Std Deviation (36.4-46.3) fL RDW Coeff of Alex (11.5-14.5) % Plt Count (130-400) K/uL MPV (7.4-10.4) fL Immature Gran % (Auto) % Neut % (Auto) % Lymph % (Auto) % Carter % (Auto) % Eos % (Auto) % Baso % (Auto) % Immature Gran # (Auto) (0.00-0.02) K/uL Neut # (Auto) (1.4-6.5) K/uL Lymph # (Auto) (1.2-3.4) K/uL Carter # (Auto) (0.11-0.59) K/uL Eos # (Auto) (0-0.5) K/uL Baso # (Auto) (0-0.2) K/uL PT (9.0-12.0) Seconds INR (0.9-1.1) APTT (21.0-31.0) Seconds PTT Ratio Sample Site POC pH (7.35-7.45) POC pCO2 (35-46) mmHg POC pO2 (80-95) mmHg POC HCO3 (19-24) guy/L POC Base Excess (-9-1.8) guy/L ABG pH (Temp Correct) (7.35-7.45) ABG pCO2 (Temp Corrct (35-46) mmHg POC ABG pO2 at Pt Temp Jovanni Test VBG pH (7.36-7.41) VBG pCO2 (38-50) mmHg VBG pO2 mmHg VBG HCO3 mmol/L VBG O2 Saturation % VBG Base Excess mEq/L Barometric Pressure mm/Hg O2 Delivery Device POC O2 Rate POC FiO2 % IPAP POC Sodium (135-144) mmol/L Sodium (136-145) mmol/L POC Potassium (3.3-5.0) mmol/L Potassium (3.5-5.1) mmol/L POC Chloride (101-112) mmol/L Chloride (98-107) mmol/L Carbon Dioxide (21-32) mmol/L POC Total CO2 (24-31) mEq/l Anion Gap (3-11) POC Anion Gap (16-25) mmol/L POC BUN (7-18) mg/dl BUN (7-18) mg/dl Creatinine (0.6-1.4) mg/dl POC Creatinine (0.6-1.3) mg/dl Est Cr Clr Drug Dosing ml/min Est GFR ( Amer) Est GFR (Non-Af Amer) BUN/Creatinine Ratio (10-20) Glucose (70-99) mg/dl POC Glucose 144 H (70-99) mg/dl POC Glucose (other) (70-99) mg/dl Lactate (0.4-2.0) mmol/L Calcium (8.5-10.1) mg/dl POC Ioniz Calcium Gaetano (1.12-1.32) mmol/l Magnesium (1.8-2.4) mg/dl Total Bilirubin (0.2-1) mg/dl Direct Bilirubin (0-0.2) mg/dl AST (15-37) U/L ALT (12-78) U/L Alkaline Phosphatase (45-117) U/L Lactate Dehydrogenase (87-241) U/L Troponin I 0.049 H* (0-0.045) ng/ml NT-Pro-B Natriuret Pep (0-900) pg/ml Total Protein (6.4-8.2) gm/dl Albumin (3.4-5.0) gm/dl Globulin (2.5-4.0) gm/dl Albumin/Globulin Ratio (0.9-2) Procalcitonin (0-0.5) ng/ml Urine Color Urine Appearance (Clear) Urine pH (4.5-7.5) Ur Specific [place] (1.000-1.030) Urine Protein (Negative) Urine Glucose (UA) (Negative) Urine Ketones (Negative) Urine Blood (Negative) Urine Nitrite (Negative) Urine Bilirubin (Negative) Urine Urobilinogen (Negative) Ur Leukocyte Esterase (Negative) Urine WBC (Auto) (0-5) /hpf Urine RBC (Auto) (0-4) /hpf U Hyaline Cast (Auto) (0-5) /lpf U Epithel Cells (Auto) (0-5) /lpf Urine Bacteria (Auto) (Negative) Ur Renal Epithelial Cell Nasal Screen MRSA (PCR) Negative (Negative) Adenovirus (PCR) (NotDetected) B. pertussis DNA (PCR) (NotDetected) B.parapertussis DNA PCR (NotDetected) C. pneumoniae DNA (PCR) (NotDetected) Coronavirus (PCR) Coronavirus OC43 (PCR) (NotDetected) Coronavirus HKU1 (PCR) (NotDetected) Coronavirus 229E (PCR) (NotDetected) Coronavirus NL63 (PCR) (NotDetected) Human Metapneumovir PCR (NotDetected) Influenza Type A (PCR) (Neg) Influenza Type B (PCR) (Neg) M. pneumoniae (PCR) (NotDetected) Parainfluenza 1 (PCR) (NotDetected) Parainfluenza 2 (PCR) (NotDetected) Parainfluenza 3 (PCR) (NotDetected) Parainfluenza 4 (PCR) (NotDetected) RSV (PCR) (NotDetected) Respiratory Virus Sourc Entero/Rhino (PCR) (NotDetected) Misc Test Comment 05/04/19 05/04/19 05/04/19 Range/Units 13:27 13:18 13:18 WBC (4.8-10.8) K/uL RBC (4.7-6.1) M/uL Hgb (14.0-18.0) g/dL POC Hgb 11.6 L (14.0-18.0) g/dl Hct (42-52) % POC Hct 34 L (42-52) % MCV (80-100) fL MCH (25-34) pg MCHC (32-36) g/dL RDW Std Deviation (36.4-46.3) fL RDW Coeff of Alex (11.5-14.5) % Plt Count (130-400) K/uL MPV (7.4-10.4) fL Immature Gran % (Auto) % Neut % (Auto) % Lymph % (Auto) % Carter % (Auto) % Eos % (Auto) % Baso % (Auto) % Immature Gran # (Auto) (0.00-0.02) K/uL Neut # (Auto) (1.4-6.5) K/uL Lymph # (Auto) (1.2-3.4) K/uL Carter # (Auto) (0.11-0.59) K/uL Eos # (Auto) (0-0.5) K/uL Baso # (Auto) (0-0.2) K/uL PT (9.0-12.0) Seconds INR (0.9-1.1) APTT (21.0-31.0) Seconds PTT Ratio Sample Site R Radial POC pH 7.35 (7.35-7.45) POC pCO2 39 (35-46) mmHg POC pO2 94 (80-95) mmHg POC HCO3 22 (19-24) guy/L POC Base Excess -4.0 (-9-1.8) guy/L ABG pH (Temp Correct) 7.376 (7.35-7.45) ABG pCO2 (Temp Corrct 36 (35-46) mmHg POC ABG pO2 at Pt Temp 84 Jovanni Test Pass VBG pH (7.36-7.41) VBG pCO2 (38-50) mmHg VBG pO2 mmHg VBG HCO3 mmol/L VBG O2 Saturation % VBG Base Excess mEq/L Barometric Pressure mm/Hg O2 Delivery Device BIPAP POC O2 Rate 14 POC FiO2 30 % IPAP 15 POC Sodium 136 (135-144) mmol/L Sodium (136-145) mmol/L POC Potassium 3.7 (3.3-5.0) mmol/L Potassium (3.5-5.1) mmol/L POC Chloride (101-112) mmol/L Chloride (98-107) mmol/L Carbon Dioxide (21-32) mmol/L POC Total CO2 23 L (24-31) mEq/l Anion Gap (3-11) POC Anion Gap (16-25) mmol/L POC BUN (7-18) mg/dl BUN (7-18) mg/dl Creatinine (0.6-1.4) mg/dl POC Creatinine (0.6-1.3) mg/dl Est Cr Clr Drug Dosing ml/min Est GFR ( Amer) Est GFR (Non-Af Amer) BUN/Creatinine Ratio (10-20) Glucose (70-99) mg/dl POC Glucose (70-99) mg/dl POC Glucose (other) (70-99) mg/dl Lactate (0.4-2.0) mmol/L Calcium (8.5-10.1) mg/dl POC Ioniz Calcium Gaetano (1.12-1.32) mmol/l Magnesium (1.8-2.4) mg/dl Total Bilirubin (0.2-1) mg/dl Direct Bilirubin (0-0.2) mg/dl AST (15-37) U/L ALT (12-78) U/L Alkaline Phosphatase (45-117) U/L Lactate Dehydrogenase 214 (87-241) U/L Troponin I (0-0.045) ng/ml NT-Pro-B Natriuret Pep Cancelled (0-900) pg/ml Total Protein (6.4-8.2) gm/dl Albumin (3.4-5.0) gm/dl Globulin (2.5-4.0) gm/dl Albumin/Globulin Ratio (0.9-2) Procalcitonin (0-0.5) ng/ml Urine Color Urine Appearance (Clear) Urine pH (4.5-7.5) Ur Specific [place] (1.000-1.030) Urine Protein (Negative) Urine Glucose (UA) (Negative) Urine Ketones (Negative) Urine Blood (Negative) Urine Nitrite (Negative) Urine Bilirubin (Negative) Urine Urobilinogen (Negative) Ur Leukocyte Esterase (Negative) Urine WBC (Auto) (0-5) /hpf Urine RBC (Auto) (0-4) /hpf U Hyaline Cast (Auto) (0-5) /lpf U Epithel Cells (Auto) (0-5) /lpf Urine Bacteria (Auto) (Negative) Ur Renal Epithelial Cell Nasal Screen MRSA (PCR) (Negative) Adenovirus (PCR) (NotDetected) B. pertussis DNA (PCR) (NotDetected) B.parapertussis DNA PCR (NotDetected) C. pneumoniae DNA (PCR) (NotDetected) Coronavirus (PCR) Coronavirus OC43 (PCR) (NotDetected) Coronavirus HKU1 (PCR) (NotDetected) Coronavirus 229E (PCR) (NotDetected) Coronavirus NL63 (PCR) (NotDetected) Human Metapneumovir PCR (NotDetected) Influenza Type A (PCR) (Neg) Influenza Type B (PCR) (Neg) M. pneumoniae (PCR) (NotDetected) Parainfluenza 1 (PCR) (NotDetected) Parainfluenza 2 (PCR) (NotDetected) Parainfluenza 3 (PCR) (NotDetected) Parainfluenza 4 (PCR) (NotDetected) RSV (PCR) (NotDetected) Respiratory Virus Sourc Entero/Rhino (PCR) (NotDetected) Misc Test Comment 05/04/19 05/04/19 05/04/19 Range/Units 13:18 13:18 13:09 WBC (4.8-10.8) K/uL RBC (4.7-6.1) M/uL Hgb (14.0-18.0) g/dL POC Hgb (14.0-18.0) g/dl Hct (42-52) % POC Hct (42-52) % MCV (80-100) fL MCH (25-34) pg MCHC (32-36) g/dL RDW Std Deviation (36.4-46.3) fL RDW Coeff of Alex (11.5-14.5) % Plt Count (130-400) K/uL MPV (7.4-10.4) fL Immature Gran % (Auto) % Neut % (Auto) % Lymph % (Auto) % Carter % (Auto) % Eos % (Auto) % Baso % (Auto) % Immature Gran # (Auto) (0.00-0.02) K/uL Neut # (Auto) (1.4-6.5) K/uL Lymph # (Auto) (1.2-3.4) K/uL Carter # (Auto) (0.11-0.59) K/uL Eos # (Auto) (0-0.5) K/uL Baso # (Auto) (0-0.2) K/uL PT (9.0-12.0) Seconds INR (0.9-1.1) APTT (21.0-31.0) Seconds PTT Ratio Sample Site POC pH (7.35-7.45) POC pCO2 (35-46) mmHg POC pO2 (80-95) mmHg POC HCO3 (19-24) guy/L POC Base Excess (-9-1.8) guy/L ABG pH (Temp Correct) (7.35-7.45) ABG pCO2 (Temp Corrct (35-46) mmHg POC ABG pO2 at Pt Temp Jovanni Test VBG pH (7.36-7.41) VBG pCO2 (38-50) mmHg VBG pO2 mmHg VBG HCO3 mmol/L VBG O2 Saturation % VBG Base Excess mEq/L Barometric Pressure mm/Hg O2 Delivery Device POC O2 Rate POC FiO2 % IPAP POC Sodium (135-144) mmol/L Sodium (136-145) mmol/L POC Potassium (3.3-5.0) mmol/L Potassium (3.5-5.1) mmol/L POC Chloride (101-112) mmol/L Chloride (98-107) mmol/L Carbon Dioxide (21-32) mmol/L POC Total CO2 (24-31) mEq/l Anion Gap (3-11) POC Anion Gap (16-25) mmol/L POC BUN (7-18) mg/dl BUN (7-18) mg/dl Creatinine (0.6-1.4) mg/dl POC Creatinine (0.6-1.3) mg/dl Est Cr Clr Drug Dosing ml/min Est GFR ( Amer) Est GFR (Non-Af Amer) BUN/Creatinine Ratio (10-20) Glucose (70-99) mg/dl POC Glucose (70-99) mg/dl POC Glucose (other) (70-99) mg/dl Lactate 2.1 H* (0.4-2.0) mmol/L Calcium (8.5-10.1) mg/dl POC Ioniz Calcium Gaetano (1.12-1.32) mmol/l Magnesium (1.8-2.4) mg/dl Total Bilirubin 0.9 (0.2-1) mg/dl Direct Bilirubin 0.2 (0-0.2) mg/dl AST 19 (15-37) U/L ALT 18 (12-78) U/L Alkaline Phosphatase 154 H (45-117) U/L Lactate Dehydrogenase (87-241) U/L Troponin I 0.076 H* (0-0.045) ng/ml NT-Pro-B Natriuret Pep 4372 H (0-900) pg/ml Total Protein 7.1 (6.4-8.2) gm/dl Albumin 2.9 L (3.4-5.0) gm/dl Globulin (2.5-4.0) gm/dl Albumin/Globulin Ratio (0.9-2) Procalcitonin (0-0.5) ng/ml Urine Color Urine Appearance (Clear) Urine pH (4.5-7.5) Ur Specific [place] (1.000-1.030) Urine Protein (Negative) Urine Glucose (UA) (Negative) Urine Ketones (Negative) Urine Blood (Negative) Urine Nitrite (Negative) Urine Bilirubin (Negative) Urine Urobilinogen (Negative) Ur Leukocyte Esterase (Negative) Urine WBC (Auto) (0-5) /hpf Urine RBC (Auto) (0-4) /hpf U Hyaline Cast (Auto) (0-5) /lpf U Epithel Cells (Auto) (0-5) /lpf Urine Bacteria (Auto) (Negative) Ur Renal Epithelial Cell Nasal Screen MRSA (PCR) (Negative) Adenovirus (PCR) (NotDetected) B. pertussis DNA (PCR) (NotDetected) B.parapertussis DNA PCR (NotDetected) C. pneumoniae DNA (PCR) (NotDetected) Coronavirus (PCR) Pending Coronavirus OC43 (PCR) (NotDetected) Coronavirus HKU1 (PCR) (NotDetected) Coronavirus 229E (PCR) (NotDetected) Coronavirus NL63 (PCR) (NotDetected) Human Metapneumovir PCR (NotDetected) Influenza Type A (PCR) (Neg) Influenza Type B (PCR) (Neg) M. pneumoniae (PCR) (NotDetected) Parainfluenza 1 (PCR) (NotDetected) Parainfluenza 2 (PCR) (NotDetected) Parainfluenza 3 (PCR) (NotDetected) Parainfluenza 4 (PCR) (NotDetected) RSV (PCR) (NotDetected) Respiratory Virus Sourc Pending Entero/Rhino (PCR) (NotDetected) Misc Test Comment Pending 05/04/19 05/04/19 05/04/19 Range/Units 13:09 10:23 10:05 WBC (4.8-10.8) K/uL RBC (4.7-6.1) M/uL Hgb (14.0-18.0) g/dL POC Hgb 13.9 L (14.0-18.0) g/dl Hct (42-52) % POC Hct 41 L (42-52) % MCV (80-100) fL MCH (25-34) pg MCHC (32-36) g/dL RDW Std Deviation (36.4-46.3) fL RDW Coeff of Alex (11.5-14.5) % Plt Count (130-400) K/uL MPV (7.4-10.4) fL Immature Gran % (Auto) % Neut % (Auto) % Lymph % (Auto) % Carter % (Auto) % Eos % (Auto) % Baso % (Auto) % Immature Gran # (Auto) (0.00-0.02) K/uL Neut # (Auto) (1.4-6.5) K/uL Lymph # (Auto) (1.2-3.4) K/uL Carter # (Auto) (0.11-0.59) K/uL Eos # (Auto) (0-0.5) K/uL Baso # (Auto) (0-0.2) K/uL PT (9.0-12.0) Seconds INR (0.9-1.1) APTT (21.0-31.0) Seconds PTT Ratio Sample Site POC pH (7.35-7.45) POC pCO2 (35-46) mmHg POC pO2 (80-95) mmHg POC HCO3 (19-24) guy/L POC Base Excess (-9-1.8) guy/L ABG pH (Temp Correct) (7.35-7.45) ABG pCO2 (Temp Corrct (35-46) mmHg POC ABG pO2 at Pt Temp Jovanni Test VBG pH 7.30 L (7.36-7.41) VBG pCO2 51 H (38-50) mmHg VBG pO2 29 mmHg VBG HCO3 24 mmol/L VBG O2 Saturation < 60.0 % VBG Base Excess -2.7 mEq/L Barometric Pressure 743.9 mm/Hg O2 Delivery Device POC O2 Rate POC FiO2 % IPAP POC Sodium 135 (135-144) mmol/L Sodium (136-145) mmol/L POC Potassium 3.7 (3.3-5.0) mmol/L Potassium (3.5-5.1) mmol/L POC Chloride 101 (101-112) mmol/L Chloride (98-107) mmol/L Carbon Dioxide (21-32) mmol/L POC Total CO2 24 (24-31) mEq/l Anion Gap (3-11) POC Anion Gap 15.0 L (16-25) mmol/L POC BUN 12 (7-18) mg/dl BUN (7-18) mg/dl Creatinine (0.6-1.4) mg/dl POC Creatinine 1.0 (0.6-1.3) mg/dl Est Cr Clr Drug Dosing ml/min Est GFR ( Amer) Est GFR (Non-Af Amer) BUN/Creatinine Ratio (10-20) Glucose (70-99) mg/dl POC Glucose (70-99) mg/dl POC Glucose (other) 172 H (70-99) mg/dl Lactate (0.4-2.0) mmol/L Calcium (8.5-10.1) mg/dl POC Ioniz Calcium Gaetano 1.08 L (1.12-1.32) mmol/l Magnesium (1.8-2.4) mg/dl Total Bilirubin (0.2-1) mg/dl Direct Bilirubin (0-0.2) mg/dl AST (15-37) U/L ALT (12-78) U/L Alkaline Phosphatase (45-117) U/L Lactate Dehydrogenase (87-241) U/L Troponin I (0-0.045) ng/ml NT-Pro-B Natriuret Pep (0-900) pg/ml Total Protein (6.4-8.2) gm/dl Albumin (3.4-5.0) gm/dl Globulin (2.5-4.0) gm/dl Albumin/Globulin Ratio (0.9-2) Procalcitonin (0-0.5) ng/ml Urine Color Urine Appearance (Clear) Urine pH (4.5-7.5) Ur Specific [place] (1.000-1.030) Urine Protein (Negative) Urine Glucose (UA) (Negative) Urine Ketones (Negative) Urine Blood (Negative) Urine Nitrite (Negative) Urine Bilirubin (Negative) Urine Urobilinogen (Negative) Ur Leukocyte Esterase (Negative) Urine WBC (Auto) (0-5) /hpf Urine RBC (Auto) (0-4) /hpf U Hyaline Cast (Auto) (0-5) /lpf U Epithel Cells (Auto) (0-5) /lpf Urine Bacteria (Auto) (Negative) Ur Renal Epithelial Cell Nasal Screen MRSA (PCR) (Negative) Adenovirus (PCR) Not Detected (NotDetected) B. pertussis DNA (PCR) Not Detected (NotDetected) B.parapertussis DNA PCR Not Detected (NotDetected) C. pneumoniae DNA (PCR) Not Detected (NotDetected) Coronavirus (PCR) Coronavirus OC43 (PCR) Not Detected (NotDetected) Coronavirus HKU1 (PCR) Not Detected (NotDetected) Coronavirus 229E (PCR) Not Detected (NotDetected) Coronavirus NL63 (PCR) Not Detected (NotDetected) Human Metapneumovir PCR Not Detected (NotDetected) Influenza Type A (PCR) Not Detected (Neg) Influenza Type B (PCR) Not Detected (Neg) M. pneumoniae (PCR) Not Detected (NotDetected) Parainfluenza 1 (PCR) Not Detected (NotDetected) Parainfluenza 2 (PCR) Not Detected (NotDetected) Parainfluenza 3 (PCR) Not Detected (NotDetected) Parainfluenza 4 (PCR) Not Detected (NotDetected) RSV (PCR) DETECTED A* (NotDetected) Respiratory Virus Sourc Entero/Rhino (PCR) Not Detected (NotDetected) Misc Test Comment 05/04/19 05/04/19 05/04/19 Range/Units 10:05 10:05 10:05 WBC (4.8-10.8) K/uL RBC (4.7-6.1) M/uL Hgb (14.0-18.0) g/dL POC Hgb (14.0-18.0) g/dl Hct (42-52) % POC Hct (42-52) % MCV (80-100) fL MCH (25-34) pg MCHC (32-36) g/dL RDW Std Deviation (36.4-46.3) fL RDW Coeff of Alex (11.5-14.5) % Plt Count (130-400) K/uL MPV (7.4-10.4) fL Immature Gran % (Auto) % Neut % (Auto) % Lymph % (Auto) % Carter % (Auto) % Eos % (Auto) % Baso % (Auto) % Immature Gran # (Auto) (0.00-0.02) K/uL Neut # (Auto) (1.4-6.5) K/uL Lymph # (Auto) (1.2-3.4) K/uL Carter # (Auto) (0.11-0.59) K/uL Eos # (Auto) (0-0.5) K/uL Baso # (Auto) (0-0.2) K/uL PT (9.0-12.0) Seconds INR (0.9-1.1) APTT (21.0-31.0) Seconds PTT Ratio Sample Site POC pH (7.35-7.45) POC pCO2 (35-46) mmHg POC pO2 (80-95) mmHg POC HCO3 (19-24) guy/L POC Base Excess (-9-1.8) guy/L ABG pH (Temp Correct) (7.35-7.45) ABG pCO2 (Temp Corrct (35-46) mmHg POC ABG pO2 at Pt Temp Jovanni Test VBG pH (7.36-7.41) VBG pCO2 (38-50) mmHg VBG pO2 mmHg VBG HCO3 mmol/L VBG O2 Saturation % VBG Base Excess mEq/L Barometric Pressure mm/Hg O2 Delivery Device POC O2 Rate POC FiO2 % IPAP POC Sodium (135-144) mmol/L Sodium 134 L (136-145) mmol/L POC Potassium (3.3-5.0) mmol/L Potassium 3.7 (3.5-5.1) mmol/L POC Chloride (101-112) mmol/L Chloride 102 (98-107) mmol/L Carbon Dioxide 24 (21-32) mmol/L POC Total CO2 (24-31) mEq/l Anion Gap 7.0 (3-11) POC Anion Gap (16-25) mmol/L POC BUN (7-18) mg/dl BUN 13 (7-18) mg/dl Creatinine 1.16 (0.6-1.4) mg/dl POC Creatinine (0.6-1.3) mg/dl Est Cr Clr Drug Dosing 65.9 ml/min Est GFR ( Amer) 72.5 Est GFR (Non-Af Amer) 62.6 BUN/Creatinine Ratio 11.0 (10-20) Glucose 169 H (70-99) mg/dl POC Glucose (70-99) mg/dl POC Glucose (other) (70-99) mg/dl Lactate 2.0 (0.4-2.0) mmol/L Calcium 8.7 (8.5-10.1) mg/dl POC Ioniz Calcium Gaetano (1.12-1.32) mmol/l Magnesium 1.8 (1.8-2.4) mg/dl Total Bilirubin 1.0 (0.2-1) mg/dl Direct Bilirubin (0-0.2) mg/dl AST 23 (15-37) U/L ALT 20 (12-78) U/L Alkaline Phosphatase 184 H (45-117) U/L Lactate Dehydrogenase (87-241) U/L Troponin I < 0.015 (0-0.045) ng/ml NT-Pro-B Natriuret Pep (0-900) pg/ml Total Protein 8.2 (6.4-8.2) gm/dl Albumin 3.6 (3.4-5.0) gm/dl Globulin 4.6 H (2.5-4.0) gm/dl Albumin/Globulin Ratio 0.8 L (0.9-2) Procalcitonin 0.07 (0-0.5) ng/ml Urine Color Urine Appearance (Clear) Urine pH (4.5-7.5) Ur Specific [place] (1.000-1.030) Urine Protein (Negative) Urine Glucose (UA) (Negative) Urine Ketones (Negative) Urine Blood (Negative) Urine Nitrite (Negative) Urine Bilirubin (Negative) Urine Urobilinogen (Negative) Ur Leukocyte Esterase (Negative) Urine WBC (Auto) (0-5) /hpf Urine RBC (Auto) (0-4) /hpf U Hyaline Cast (Auto) (0-5) /lpf U Epithel Cells (Auto) (0-5) /lpf Urine Bacteria (Auto) (Negative) Ur Renal Epithelial Cell Nasal Screen MRSA (PCR) (Negative) Adenovirus (PCR) (NotDetected) B. pertussis DNA (PCR) (NotDetected) B.parapertussis DNA PCR (NotDetected) C. pneumoniae DNA (PCR) (NotDetected) Coronavirus (PCR) Coronavirus OC43 (PCR) (NotDetected) Coronavirus HKU1 (PCR) (NotDetected) Coronavirus 229E (PCR) (NotDetected) Coronavirus NL63 (PCR) (NotDetected) Human Metapneumovir PCR (NotDetected) Influenza Type A (PCR) (Neg) Influenza Type B (PCR) (Neg) M. pneumoniae (PCR) (NotDetected) Parainfluenza 1 (PCR) (NotDetected) Parainfluenza 2 (PCR) (NotDetected) Parainfluenza 3 (PCR) (NotDetected) Parainfluenza 4 (PCR) (NotDetected) RSV (PCR) (NotDetected) Respiratory Virus [facility] Entero/Rhino (PCR) (NotDetected) Misc Test Comment 05/04/19 05/04/19 05/04/19 Range/Units 10:05 10:05 10:00 WBC 9.48 (4.8-10.8) K/uL RBC 4.51 L (4.7-6.1) M/uL Hgb 13.6 L (14.0-18.0) g/dL POC Hgb (14.0-18.0) g/dl Hct 40.8 L (42-52) % POC Hct (42-52) % MCV 90.5 (80-100) fL MCH 30.2 (25-34) pg MCHC 33.3 (32-36) g/dL RDW Std Deviation 53.2 H (36.4-46.3) fL RDW Coeff of Alex 16.0 H (11.5-14.5) % Plt Count 161 (130-400) K/uL MPV 9.6 (7.4-10.4) fL Immature Gran % (Auto) 0.5 % Neut % (Auto) 82.6 % Lymph % (Auto) 11.0 % Carter % (Auto) 5.0 % Eos % (Auto) 0.5 % Baso % (Auto) 0.4 % Immature Gran # (Auto) 0.05 H (0.00-0.02) K/uL Neut # (Auto) 7.83 H (1.4-6.5) K/uL Lymph # (Auto) 1.04 L (1.2-3.4) K/uL Carter # (Auto) 0.47 (0.11-0.59) K/uL Eos # (Auto) 0.05 (0-0.5) K/uL Baso # (Auto) 0.04 (0-0.2) K/uL PT 26.1 H (9.0-12.0) Seconds INR 2.6 H (0.9-1.1) APTT 31.8 H (21.0-31.0) Seconds PTT Ratio 1.1 Sample Site POC pH (7.35-7.45) POC pCO2 (35-46) mmHg POC pO2 (80-95) mmHg POC HCO3 (19-24) guy/L POC Base Excess (-9-1.8) guy/L ABG pH (Temp Correct) (7.35-7.45) ABG pCO2 (Temp Corrct (35-46) mmHg POC ABG pO2 at Pt Temp Jovanni Test VBG pH (7.36-7.41) VBG pCO2 (38-50) mmHg VBG pO2 mmHg VBG HCO3 mmol/L VBG O2 Saturation % VBG Base Excess mEq/L Barometric Pressure mm/Hg O2 Delivery Device POC O2 Rate POC FiO2 % IPAP POC Sodium (135-144) mmol/L Sodium (136-145) mmol/L POC Potassium (3.3-5.0) mmol/L Potassium (3.5-5.1) mmol/L POC Chloride (101-112) mmol/L Chloride (98-107) mmol/L Carbon Dioxide (21-32) mmol/L POC Total CO2 (24-31) mEq/l Anion Gap (3-11) POC Anion Gap (16-25) mmol/L POC BUN (7-18) mg/dl BUN (7-18) mg/dl Creatinine (0.6-1.4) mg/dl POC Creatinine (0.6-1.3) mg/dl Est Cr Clr Drug Dosing ml/min Est GFR ( Amer) Est GFR (Non-Af Amer) BUN/Creatinine Ratio (10-20) Glucose (70-99) mg/dl POC Glucose (70-99) mg/dl POC Glucose (other) (70-99) mg/dl Lactate (0.4-2.0) mmol/L Calcium (8.5-10.1) mg/dl POC Ioniz Calcium Gaetano (1.12-1.32) mmol/l Magnesium (1.8-2.4) mg/dl Total Bilirubin (0.2-1) mg/dl Direct Bilirubin (0-0.2) mg/dl AST (15-37) U/L ALT (12-78) U/L Alkaline Phosphatase (45-117) U/L Lactate Dehydrogenase (87-241) U/L Troponin I (0-0.045) ng/ml NT-Pro-B Natriuret Pep (0-900) pg/ml Total Protein (6.4-8.2) gm/dl Albumin (3.4-5.0) gm/dl Globulin (2.5-4.0) gm/dl Albumin/Globulin Ratio (0.9-2) Procalcitonin (0-0.5) ng/ml Urine Color Urine Appearance (Clear) Urine pH (4.5-7.5) Ur Specific [place] (1.000-1.030) Urine Protein (Negative) Urine Glucose (UA) (Negative) Urine Ketones (Negative) Urine Blood (Negative) Urine Nitrite (Negative) Urine Bilirubin (Negative) Urine Urobilinogen (Negative) Ur Leukocyte Esterase (Negative) Urine WBC (Auto) (0-5) /hpf Urine RBC (Auto) (0-4) /hpf U Hyaline Cast (Auto) (0-5) /lpf U Epithel Cells (Auto) (0-5) /lpf Urine Bacteria (Auto) (Negative) Ur Renal Epithelial Cell Nasal Screen MRSA (PCR) (Negative) Adenovirus (PCR) (NotDetected) B. pertussis DNA (PCR) (NotDetected) B.parapertussis DNA PCR (NotDetected) C. pneumoniae DNA (PCR) (NotDetected) Coronavirus (PCR) Coronavirus OC43 (PCR) (NotDetected) Coronavirus HKU1 (PCR) (NotDetected) Coronavirus 229E (PCR) (NotDetected) Coronavirus NL63 (PCR) (NotDetected) Human Metapneumovir PCR (NotDetected) Influenza Type A (PCR) Neg for Influ A (Neg) Influenza Type B (PCR) Neg for Influ B (Neg) M. pneumoniae (PCR) (NotDetected) Parainfluenza 1 (PCR) (NotDetected) Parainfluenza 2 (PCR) (NotDetected) Parainfluenza 3 (PCR) (NotDetected) Parainfluenza 4 (PCR) (NotDetected) RSV (PCR) (NotDetected) Respiratory Virus Sourc Entero/Rhino (PCR) (NotDetected) Misc Test Comment 05/04/19 Range/Units 10:00 WBC (4.8-10.8) K/uL RBC (4.7-6.1) M/uL Hgb (14.0-18.0) g/dL POC Hgb (14.0-18.0) g/dl Hct (42-52) % POC Hct (42-52) % MCV (80-100) fL MCH (25-34) pg MCHC (32-36) g/dL RDW Std Deviation (36.4-46.3) fL RDW Coeff of Alex (11.5-14.5) % Plt Count (130-400) K/uL MPV (7.4-10.4) fL Immature Gran % (Auto) % Neut % (Auto) % Lymph % (Auto) % Carter % (Auto) % Eos % (Auto) % Baso % (Auto) % Immature Gran # (Auto) (0.00-0.02) K/uL Neut # (Auto) (1.4-6.5) K/uL Lymph # (Auto) (1.2-3.4) K/uL Carter # (Auto) (0.11-0.59) K/uL Eos # (Auto) (0-0.5) K/uL Baso # (Auto) (0-0.2) K/uL PT (9.0-12.0) Seconds INR (0.9-1.1) APTT (21.0-31.0) Seconds PTT Ratio Sample Site POC pH (7.35-7.45) POC pCO2 (35-46) mmHg POC pO2 (80-95) mmHg POC HCO3 (19-24) guy/L POC Base Excess (-9-1.8) guy/L ABG pH (Temp Correct) (7.35-7.45) ABG pCO2 (Temp Corrct (35-46) mmHg POC ABG pO2 at Pt Temp Jovanni Test VBG pH (7.36-7.41) VBG pCO2 (38-50) mmHg VBG pO2 mmHg VBG HCO3 mmol/L VBG O2 Saturation % VBG Base Excess mEq/L Barometric Pressure mm/Hg O2 Delivery Device POC O2 Rate POC FiO2 % IPAP POC Sodium (135-144) mmol/L Sodium (136-145) mmol/L POC Potassium (3.3-5.0) mmol/L Potassium (3.5-5.1) mmol/L POC Chloride (101-112) mmol/L Chloride (98-107) mmol/L Carbon Dioxide (21-32) mmol/L POC Total CO2 (24-31) mEq/l Anion Gap (3-11) POC Anion Gap (16-25) mmol/L POC BUN (7-18) mg/dl BUN (7-18) mg/dl Creatinine (0.6-1.4) mg/dl POC Creatinine (0.6-1.3) mg/dl Est Cr Clr Drug Dosing ml/min Est GFR ( Amer) Est GFR (Non-Af Amer) BUN/Creatinine Ratio (10-20) Glucose (70-99) mg/dl POC Glucose (70-99) mg/dl POC Glucose (other) (70-99) mg/dl Lactate (0.4-2.0) mmol/L Calcium (8.5-10.1) mg/dl POC Ioniz Calcium Gaetano (1.12-1.32) mmol/l Magnesium (1.8-2.4) mg/dl Total Bilirubin (0.2-1) mg/dl Direct Bilirubin (0-0.2) mg/dl AST (15-37) U/L ALT (12-78) U/L Alkaline Phosphatase (45-117) U/L Lactate Dehydrogenase (87-241) U/L Troponin I (0-0.045) ng/ml NT-Pro-B Natriuret Pep (0-900) pg/ml Total Protein (6.4-8.2) gm/dl Albumin (3.4-5.0) gm/dl Globulin (2.5-4.0) gm/dl Albumin/Globulin Ratio (0.9-2) Procalcitonin (0-0.5) ng/ml Urine Color Yellow Urine Appearance Clear (Clear) Urine pH 7.5 (4.5-7.5) Ur Specific [place] 1.015 (1.000-1.030) Urine Protein 3+ H (Negative) Urine Glucose (UA) Negative (Negative) Urine Ketones Negative (Negative) Urine Blood 3+ H (Negative) Urine Nitrite Negative (Negative) Urine Bilirubin Negative (Negative) Urine Urobilinogen Negative (Negative) Ur Leukocyte Esterase Negative (Negative) Urine WBC (Auto) 1-5 (0-5) /hpf Urine RBC (Auto) >30 H (0-4) /hpf U Hyaline Cast (Auto) 1-5 (0-5) /lpf U Epithel Cells (Auto) >30 H (0-5) /lpf Urine Bacteria (Auto) 1+ H (Negative) Ur Renal Epithelial Cell Not Reportable Nasal Screen MRSA (PCR) (Negative) Adenovirus (PCR) (NotDetected) B. pertussis DNA (PCR) (NotDetected) B.parapertussis DNA PCR (NotDetected) C. pneumoniae DNA (PCR) (NotDetected) Coronavirus (PCR) Coronavirus OC43 (PCR) (NotDetected) Coronavirus HKU1 (PCR) (NotDetected) Coronavirus 229E (PCR) (NotDetected) Coronavirus NL63 (PCR) (NotDetected) Human Metapneumovir PCR (NotDetected) Influenza Type A (PCR) (Neg) Influenza Type B (PCR) (Neg) M. pneumoniae (PCR) (NotDetected) Parainfluenza 1 (PCR) (NotDetected) Parainfluenza 2 (PCR) (NotDetected) Parainfluenza 3 (PCR) (NotDetected) Parainfluenza 4 (PCR) (NotDetected) RSV (PCR) (NotDetected) Respiratory Virus Sourc Entero/Rhino (PCR) (NotDetected) Misc Test Comment Medications Administered Current Inpatient Medications Albuterol (Duoneb) 3 ml NEB Q4R ANTONIO Stop: 06/03/19 14:59 Last Admin: 05/05/19 07:45 Dose: 3 ml Documented by: Diltiazem HCl 125 mg/ Dextrose 125 mls @ 15 mls/hr IV .Q8H20M ANTONIO; Protocol Stop: 06/03/19 10:29 Last Titration: 05/05/19 07:20 Dose: 15 mg/hr, 15 mls/hr Documented by: Vancomycin HCl 1,500 mg/ (Sodium Chloride) 530 mls @ 200 mls/hr IV Q14H ANTONIO Stop: 05/12/19 00:00 Last Infusion: 05/05/19 03:12 Dose: Infused Documented by: Cefepime HCl 2,000 mg/ Syringe 20 mls @ 5 mls/min IV Q8H ANTONIO; Protocol Stop: 05/11/19 17:59 Last Admin: 05/05/19 02:49 Dose: 5 mls/min Documented by: Miscellaneous (Icu Protocol For Hyperglycemia) 1 ea N/A PRN PRN; Protocol PRN Reason: Hyperglycemia Protocol Stop: 05/06/19 12:05 Miscellaneous Information (Consult) 1 ea N/A UD PRN PRN Reason: Consult Stop: 06/03/19 12:05 Miscellaneous Information (Cefepime Consult Active) 1 ea N/A UD PRN PRN Reason: Consult Stop: 06/03/19 12:10 Ondansetron HCl (Zofran) 4 mg IV Q4H PRN PRN Reason: Nausea Stop: 06/04/19 04:58 Critical Care Time Critical Care Time: Yes Total Critical Care Time: 40 I have personally spent 40 minutes of critical care time in the direct management of this patient. This is a life/limb threatening event. This includes time spent evaluating patient, direct bedside care, chart review, placing orders, interpretation of diagnostic studies, discussion with consultants, patient, and/or family members regarding treatment decisions, as well as other required patient management activities. This time is exclusive of all separately billable procedures, and teaching time and separate from and in addition to any other critical care service time. Resident Activity Tracking Resident Involvement: Resident Care Provided Care Provided: Adult Hospital Medicine (1) Dementia Dementia behavioral disturbance: without behavioral disturbance Dementia type: unspecified type Qualified Code(s): F03.90 - Unspecified dementia without behavioral disturbance
[2019-05-05] MEDS: dilTIAZem HCL 125 MG in DEXTROSE 5% 100 ML IV SCH ×3 (08:13→23:09)
--- NOTE | 2019-05-05 09:26 | Cardiology Progress Note ---
Date of Service May 05, 2019 Subjective Patient is on respiration precautions. Conversation was had with the ICU team as well as the nursing staff. They have had difficulty controlling his atrial fibrillation from a rate standpoint. He is on 50 mg of Cardizem per hour IV. In addition he is received 2 doses of IV metoprolol 5 mg. The last dose was given at midnight. He has advanced dementia. He is unable to obtain a history from. Results & Data Vital Signs (Past 12 Hours) Vital Signs Temp Pulse Pulse Resp BP Pulse Ox 05/05/19 07:53 120 H 28 H 90 05/05/19 06:34 96 H 33 H 137/75 93 05/05/19 06:04 36.6 C 102 H 42 H 114/70 91 05/05/19 05:34 117 H 37 H 116/83 94 05/05/19 05:04 127 H 32 H 147/79 H 88 L 05/05/19 04:34 124 H 32 H 130/75 98 05/05/19 04:14 106 H 26 H 96 05/05/19 04:04 36.8 C 115 H 25 H 133/93 95 05/05/19 03:34 139 H 29 H 133/80 97 05/05/19 03:04 126 H 24 126/95 95 05/05/19 02:34 118 H 21 129/103 H 98 05/05/19 02:04 36.8 C 112 H 21 126/107 H 97 05/05/19 01:34 114 H 24 135/82 98 05/05/19 01:26 133 H 24 97 05/05/19 01:03 106 H 35 H 156/72 H 96 05/05/19 00:35 121 H 24 129/89 97 05/05/19 00:04 39 C H 106 H 27 H 139/77 97 05/04/19 23:48 163 H 173/113 H 05/04/19 23:34 129 H 31 H 172/113 H 95 05/04/19 23:04 128 H 24 182/90 H 98 05/04/19 22:34 165 H 19 89/67 L 88 L 05/04/19 22:26 147 H 28 H 97 05/04/19 22:04 37.9 C H 134 H 27 H 137/83 05/04/19 21:33 105 H 24 161/86 H 99 As noted he has advanced dementia HEENT his carotid upstrokes were difficult to assess given his tachycardia Lungs inspiratory and expiratory rhonchi Heart tachycardic (irregularly irregular) no appreciable murmurs Abdomen soft nontender nondistended decreased bowel sounds Impressions: (1) Sepsis: Secondary to RSV. Being managed by the intensive care team (2) Rapid atrial fibrillation: He is having Reiger's. With his Reiger's as expected his heart rate does rise. He was on a combination of calcium channel blockers and beta-blockers as an outpatient. I will add Lopressor 2 and half milligrams IV every 4 hours in addition to the diltiazem. Depending on his heart rate and blood pressure his beta-blockers can be uptitrated to 5 mg IV every 4 hours if necessary. (3) Dementia: Advanced. (4) Hypertension: Blood pressure is adequate. 5. Report of a negative dobutamine stress echo in 2018 in the outpatient cardiology records at [facility]. At that time his LV function was preserved. 6. History of an LAD stent in approximately 2003 All this was discussed with the supervisor poultry hatchery and the nursing staff in the ICU.
--- NOTE | 2019-05-05 09:37 | Hospitalist Progress Note ---
Date of Service May 05, 2019 Assessment & Plan (1) Acute respiratory failure with hypoxia: As per ICU management. Now off BiPAP. Continue to aim O2 > 90%. Secondary to RSV infection and pulmonary edema. (2) RSV (respiratory syncytial virus infection): Supportive management. Given severity of illness unclear if this is the sole cause at present. (3) Sepsis: Source RSV. However COVID-19 also pending at this time. Patient on isolation airborne precautions. Blood cultures no growth in 24 hours. Urine culture preliminary no growth. No clear source indication for antibiotics however patient having fever/rigors yesterday and today and agree with empiric use at this time. Continues on cefepime and levaquin (added 05/04). MRSA nasal swab negative. (4) Toxic metabolic encephalopathy: Secondary to above infection in setting of dementia. (5) Small bowel obstruction: Concern for this given gastric gaseous distention of stomach. NG tube placed. Management as per ICU with CT +/- surgery referral depending on discussion with family. IV fluid management as per ICU given setting of pulmonary edema in addition. (6) Rapid atrial fibrillation: Appreciate cardiology management with IV diltiazem and metoprolol. Anticoagulation with warfarin; INR currently supratherapeutic, warfarin on hold. (7) Acute on chronic diastolic heart failure: Suspect rate-related pulmonary edema on initial CXR. Appears mostly euvolemic at this time and agree with holding lasix. (8) Hypertension: Stable on diltiazem and metoprolol mainly for rate control. (9) Demand ischemia: Mild elevation in troponin in setting of a. fib with RVR. (10) Dementia: Rivastigmine + memantine as an outpatient. Given concern for SBO will d/c for now. Admission and Anticipated Discharge Date Admission Date: May 04, 2019 Subjective Patient awakes to voice. Not making able to verbalize to answer any questions at this time. Review of Systems Review of Systems: Unobtainable due to cognitive status Physical Exam Constitutional: + acute distress (respiratory) and + ill appearing Eyes: + anicteric sclerae; normal pupil size ENMT: NG tube in place with bilious liquis draining Neck: trachea midline Respiratory: + respiratory distress, + labored breathing, + retractions, + uses accessory muscles, + cough (occasional) and + abnormal respiratory pattern (prolonged inspiration) Auscultation: + rhonchi (b/l equal); no crackles, no rales and no wheezes Cardiovascular: Rate/Rhythm: + tachycardic and + irregularly irregular Vessels: no JVD Gastrointestinal (Abdomen): Inspection/Auscultation: + abdomen distended and + hypoactive bowel sounds (scant) Percussion/Palpation: abdomen soft; abdomen not rigid Skin: no rashes, warm and dry (no cellulitic changes on exposed skin) Neurologic: awake (to voice) Psychiatric: Orientation: alert (to voice); + not oriented x 3 Results & Data ([facility]) Vital Signs (Past 12 Hours) Vital Signs Temp Pulse Pulse Resp BP Pulse Ox 05/05/19 07:53 120 H 28 H 90 05/05/19 06:34 96 H 33 H 137/75 93 05/05/19 06:04 36.6 C 102 H 42 H 114/70 91 05/05/19 05:34 117 H 37 H 116/83 94 05/05/19 05:04 127 H 32 H 147/79 H 88 L 05/05/19 04:34 124 H 32 H 130/75 98 05/05/19 04:14 106 H 26 H 96 05/05/19 04:04 36.8 C 115 H 25 H 133/93 95 05/05/19 03:34 139 H 29 H 133/80 97 05/05/19 03:04 126 H 24 126/95 95 05/05/19 02:34 118 H 21 129/103 H 98 05/05/19 02:04 36.8 C 112 H 21 126/107 H 97 05/05/19 01:34 114 H 24 135/82 98 05/05/19 01:26 133 H 24 97 05/05/19 01:03 106 H 35 H 156/72 H 96 05/05/19 00:35 121 H 24 129/89 97 05/05/19 00:04 39 C H 106 H 27 H 139/77 97 05/04/19 23:48 163 H 173/113 H 05/04/19 23:34 129 H 31 H 172/113 H 95 05/04/19 23:04 128 H 24 182/90 H 98 05/04/19 22:34 165 H 19 89/67 L 88 L 05/04/19 22:26 147 H 28 H 97 05/04/19 22:04 37.9 C H 134 H 27 H 137/83 PG Care Time/CCT Total # of Minutes Spent Total Time Spent with Patient: Total time spent is greater than 50% in coordination of care (as documented) at patient's floor/unit and/or counseling patient: Coding Level of Care Code 92336 Subseq Hosp Care Lvl 3 Diagnoses Acute respiratory failure with hypoxia J96.01 RSV (respiratory syncytial virus infection) B97.4 Sepsis A41.9; R65.20; J96.01 Acute respiratory failure type: with hypoxia Sepsis acute organ dysfunction status: with acute organ dysfunction Sepsis type: sepsis due to unspecified organism Severe sepsis acute organ dysfunction type: acute respiratory failure Severe sepsis shock status: without septic shock Toxic metabolic encephalopathy G92 Small bowel obstruction K56.609 Rapid atrial fibrillation I48.91 Acute on chronic diastolic heart failure I50.33 Hypertension I10 Hypertension type: unspecified Demand ischemia I24.8 Dementia F03.90 Dementia behavioral disturbance: without behavioral disturbance Dementia type: unspecified type (1) Dementia Dementia behavioral disturbance: without behavioral disturbance Dementia type: unspecified type Qualified Code(s): F03.90 - Unspecified dementia without behavioral disturbance (2) Sepsis Acute respiratory failure type: with hypoxia Sepsis acute organ dysfunction status: with acute organ dysfunction Sepsis type: sepsis due to unspecified organism Severe sepsis acute organ dysfunction type: acute respiratory failure Severe sepsis shock status: without septic shock Qualified Code(s): A41.9 - Sepsis, unspecified organism; R65.20 - Severe sepsis without septic shock; J96.01 - Acute respiratory failure with hypoxia (3) Hypertension Hypertension type: unspecified Qualified Code(s): I10 - Essential (primary) hypertension
[2019-05-05 11:02] LABS: iSTAT Arterial Blood Gas pCO2 45 mmHg (35-46); iSTAT Arterial Blood Gas pH 7.31 (7.35-7.45); iSTAT Hematocrit 39 % (42-52); iSTAT Hemoglobin 13.3 g/dl (14.0-18.0); iSTAT Potassium 3.7 mmol/L (3.3-5.0); iSTAT Sodium 135 mmol/L (135-144)
[2019-05-05 11:03] LABS: iSTAT Arterial Blood Gas HCO3 22 meg/L (19-24); iSTAT Arterial Blood Gas pO2 84 mmHg (80-95); iSTAT Carbon Dioxide 24 mmol/L (24-31)
[2019-05-05] MEDS ORDERED: IOVERSOL 100ml IV PRN (11:15)
[2019-05-05 11:22] LABS: Albumin Level 2.8 gm/dl (3.4-5.0); Bilirubin Direct 0.3 mg/dl (0-0.2); Bilirubin,Total 0.9 mg/dl (0.2-1); Total Protein 7.3 gm/dl (6.4-8.2)
--- NOTE | 2019-05-05 11:45 | CT Scan Report ---
CT abd pelvis IV con only CT DOSE: 1320.25 mGy.cm HISTORY: Pain gastric distention TECHNIQUE: Multiaxial CT images of the abdomen and pelvis were performed following the use of intrave nous contrast. A dose lowering technique was utilized adhering to the principles of ALARA. COMPARISON STUDY: 02/26/2019 FINDINGS: Interval development of a consolidative focal infiltrate left base. Minimal atelectatic willian nges right lung base. Nasogastric tube within the gastric antrum. Liver spleen and pancreas are uniform. Adrenal glands are normal. 1 cm upper pole left renal cyst. Several smaller cortical cysts involving the kidneys bilaterally. Nonobstructing nephrocalcinosis is present. Bowel pattern is nonobstructive. Nonobstructive bowel pattern. IMPRESSION: 1. Nonobstructive bowel pattern. 2. Consolidative infiltrate left base. 3. Minimal atelectasis right base. 4. No evidence of bowel distention. 5. Nasogastric tube within the gastric antrum. ACT 112: Negative or not required by law. The above report was generated using voice recognition software. It may contain grammatical, syntax or spelling errors. Electronically signed by: Gopi Woods M.D. 05/05/2019 11:43 AM
[2019-05-05] MEDS: LEVOFLOXACIN/D5W 750 MG/150 ML BAG IV SCH (12:16)
[2019-05-05] MEDS: METOPROLOL TARTRATE 1 MG/ML VIAL IV SCH ×3 (12:16→20:44)
--- NOTE | 2019-05-05 13:51 | Palliative Care Consultation ---
Date of Consultation May 05, 2019 Assessment & Plan (1) Goals of care, counseling/discussion: -73 year old male patient with PMH dementia, afib, BPH, CAD, CHF, CVA, BARBARA with occasional CPAP use at home, presented to the hospital several days ago with worsening respiratory status. He is found to be positive for RSV and apparently has a 5 month old grandson who is also displaying some of the same symptoms. ON arrival, patient was febrile and tachycardic. His lactic acid was initially negative at 2.0, but did rise and peak at 4, now trending back down. Patient is on isolation for possible COVID-19, but per documentation, he is low- risk and is positive for RSV. Therefore, I do not believe COVID-19 testing has been ordered at this time. KUB showed moderate gaseous distension. A NG tube was placed and CT abdomen obtained which shows no obstruction. Patient has significant dementia at baseline. He lives at home with his . Given his multiple comorbidities and now sever acute illness, palliative care is consulted to discuss goals of care. -Patient is confused and lethargic. On 10L oxymask, unable to participate in conversation. -Spoke with patient's /POA, Reema Krishnan, on phone. She too is ill with what she believes is the same thing patient has. Reema is aware patient cannot have visitors, and I also counseled her on not coming to the hospital while she is ill. -I gave an update on patient's current condition. Reema states that at baseline, patient is still quite functional. He ambulates with a walker. He knows who his family and friends are, he is able to converse. He does get confused with household tasks and has some short-term memory issues. He does not have any problems eating or drinking. She said he will very occasionally coughing during eating, but it's not often and she doesn't think it's associated with any certain types of food. -Reema does acknowledge that patient's quality of life is significantly impacted by the dementia, but he is not end-stage. She originally thought he just had a cold, and she is worried about how this RSV and critical illness is going to affect him. -She confirmed patient's DNR/DNI status. He has a living will on file here at the hospital which also states that if he is end-stage, he would not want any heroic measures to prolong his life. He names his Reema as POA. -Plan is to continue current treatment. Goal would be for patient to return home with home health after hospitalization, but of course this will depend on his condition. -We will continue to follow as needed. (2) Respiratory syncytial virus pneumonia: (3) Sepsis: Sepsis acute organ dysfunction status: unspecified Sepsis type: sepsis due to unspecified organism Qualified Code(s): A41.9 - Sepsis, unspecif ied organism (4) Atrial fibrillation with RVR: History of Present Illness Attending Physician: Jez Lazo MD History of Present Illness This 73 year old male patient with PMH dementia, afib, BPH, CAD, CHF, CVA, BARBARA with occasional CPAP use at home, presented to the hospital several days ago with worsening respiratory status. He is found to be positive for RSV and apparently has a 5 month old grandson who is also displaying some of the same symptoms. ON arrival, patient was febrile and tachycardic. His lactic acid was initially negative at 2.0, but did rise and peak at 4, now trending back down. Patient is on isolation for possible COVID-19, but per documentation, he is low- risk and is positive for RSV. Therefore, I do not believe COVID-19 testing has been ordered at this time. KUB showed moderate gaseous distension. A NG tube was placed and CT abdomen obtained which shows no obstruction. Patient has significant dementia at baseline. He lives at home with his . Given his multiple comorbidities and now sever acute illness, palliative care is consulted to discuss goals of care. Thank you kindly for this consult. Palliative care team will follow as needed. Allergies Allergy/AdvReac Type Severity Reaction Status Date / Time adhesive Allergy Intermediate BLISTERS Verified 05/04/19 10:18 alcohol Allergy Unknown RUBBING Verified 05/04/19 10:18 ALCOHOL MADE SHORTNESS OF BREATH escitalopram Allergy Unknown UNSURE-DOES Verified 05/04/19 10:18 NOT KNOW lisinopril Allergy Unknown Unknown Verified 05/04/19 10:18 oxycodone Allergy Unknown CONFUSION Verified 05/04/19 10:18 acetaminophen [From Percocet] Allergy Unknown Verified 05/04/19 10:18 Home Medications Home Medications Medication Instructions Recorded Confirmed Type aspirin [Aspir-81] 81 mg PO DAILY 02/13/18 05/04/19 History cholecalciferol (vitamin D3) 1,000 unit PO QPM 02/13/18 05/04/19 History [Vitamin D3] coenzyme Q10 [CoQ-10] 100 mg PO BID 02/13/18 05/04/19 History acetaminophen [Tylenol Extra 1,000 mg PO Q6H PRN 04/28/18 05/04/19 History Strength] tamsulosin 0.4 mg capsule 0.4 mg PO HS #90 cap 08/08/18 05/04/19 Rx atorvastatin 40 mg tablet 40 mg PO PM #30 tab 11/08/18 05/04/19 Rx triamcinolone acetonide 0.1 % 1 appln TOPICAL DAILY PRN #60 gm 11/14/18 05/04/19 History topical ointment diltiazem HCl 240 mg 240 mg PO DAILY 90 Days #90 cap 01/30/19 05/04/19 Rx capsule,extended release 24 hr nitroglycerin 0.4 mg sublingual 0.4 mg SL Q5M PRN #25 tab 01/30/19 05/04/19 History tablet vitamin B complex 1 tab PO DAILY 30 Days #30 tab 01/31/19 05/04/19 Rx memantine 10 mg tablet 10 mg PO BID #180 tab 02/16/19 05/04/19 Rx furosemide 20 mg tablet 20 mg PO DAILY #90 tab 02/17/19 05/04/19 Rx cyanocobalamin (vitamin B-12) 1,000 mcg PO DAILY tab 03/04/19 05/04/19 History 1,000 mcg tablet,extended release metoprolol tartrate 50 mg tablet 50 mg PO BID 90 Days #180 tab 03/06/19 05/04/19 Rx rivastigmine tartrate 3 mg capsule 3 mg PO QAM #30 cap 03/06/19 05/04/19 Rx warfarin 2 mg tablet 2 mg PO .COMPLEX #90 tab 03/06/19 05/04/19 Rx Patient History Medical History Atrial fibrillation (Chronic) BPH (benign prostatic hyperplasia) CAD (coronary artery disease) CHF (congestive heart failure) Coronary artery disease CVA (cerebral vascular accident) Dementia (Acute) Hyperlipidemia (Chronic) Hypertension (Chronic) BARBARA (obstructive sleep apnea) S/P admission to ICU (intensive care unit) Surgical History History of knee replacement History of PTCA Family History Diabetes Aunt Heart disease Family/Other Nephrolithiasis Family/Other Myocardial infarction Mother Hypertension Family/Other Stroke Father Denies family history of Prostate cancer Social History Preferred Language: Moldovan Communication Ability: Impaired Visual Impairment: No Limitations Hearing Ability: Normal Tourist Escort Required: No Beliefs That Will Affect Care: Congregational Congregational Beliefs: GNOSTICIST marital status: Current Living Situation: Spouse current occupational status: retired Other Information That Helps Us Care for You: No Feels Safe at Home: Yes Smoking Status: Unknown if ever smoked Hx Alcohol Use: No Hx Substance Use: No Seatbelt Use: always Review of Systems Review of Systems: Unobtainable due to cognitive status Physical Exam Constitutional: + ill appearing and + lethargic; no acute distress Respiratory: normal respiratory effort; no respiratory distress 10L oxymask Cardiovascular: Rate/Rhythm: + tachycardic Neurologic: + confused Results & Data Vital Signs (Past 12 Hours) Vital Signs Temp Pulse Pulse Resp BP Pulse Ox 05/05/19 12:16 131 H 134/64 05/05/19 11:45 111 H 22 96 05/05/19 10:04 119 H 27 H 144/84 H 94 05/05/19 09:34 107 H 24 147/77 H 94 05/05/19 09:14 93 H 27 H 126/75 96 05/05/19 08:38 97 H 28 H 132/66 95 05/05/19 08:04 131 H 29 H 124/83 92 05/05/19 07:53 120 H 28 H 90 05/05/19 07:34 149 H 32 H 149/76 H 91 05/05/19 07:04 105 H 32 H 125/80 94 05/05/19 06:34 96 H 33 H 137/75 93 05/05/19 06:04 36.6 C 102 H 42 H 114/70 91 05/05/19 05:34 117 H 37 H 116/83 94 05/05/19 05:04 127 H 32 H 147/79 H 88 L 05/05/19 04:34 124 H 32 H 130/75 98 05/05/19 04:14 106 H 26 H 96 05/05/19 04:04 36.8 C 115 H 25 H 133/93 95 05/05/19 03:34 139 H 29 H 133/80 97 05/05/19 03:04 126 H 24 126/95 95 05/05/19 02:34 118 H 21 129/103 H 98 05/05/19 02:04 36.8 C 112 H 21 126/107 H 97 05/05/19 01:34 114 H 24 135/82 98 PG Care Time/CCT Total # of Minutes Spent Total Time Spent with Patient: Total time spent is greater than 50% in coord ination of care (as documented) at patient's floor/unit and/or counseling patient: 50 minutes. Coding Level of Care Code 44667 Inpt Consult Level 2 Diagnoses Goals of care, counseling/discussion Z71.89 Respiratory syncytial virus pneumonia J12.1 Sepsis A41.9 Sepsis acute organ dysfunction status: unspecified Sepsis type: sepsis due to unspecified organism Atrial fibrillation with RVR I48.91 Time Spent (min) 50
--- NOTE | 2019-05-05 16:02 | XCELERA ---
[id number] [id number]
[2019-05-05] MEDS: ACETAMINOPHEN 1,000 MG/100 ML VIAL IV PRN (16:52)
[2019-05-05] MEDS ORDERED: METOPROLOL TARTRATE 1 MG/ML VIAL IV STA (22:15)
--- NOTE | 2019-05-05 22:35 | Electrocardiogram Report ---
Test Reason : Blood Pressure : / mmHG Vent. Rate : 180 BPM Atrial Rate : 115 BPM P-R Int : 000 ms QRS Dur : 074 ms QT Int : 200 ms P-R-T Axes : 000 005 165 degrees QTc Int : 346 ms Poor data quality, interpretation may be adversely affected Atrial fibrillation with rapid ventricular response with premature ventricular or aberrantly conducte d complexes Marked ST abnormality, possible lateral subendocardial injury Abnormal ECG When compared with ECG of 28-FEB-2019 07:13, Vent. rate has increased BY [address] more depressed Lateral leads Confirmed by Nate Tesfaye ([id number]) on 05/05/2019 10:35:43 PM Referred By: REFERRED SELF Confirmed By:Nate Tesfaye
[2019-05-06] MEDS: METOPROLOL TARTRATE 1 MG/ML VIAL IV SCH ×6 (00:48→23:44)
[2019-05-06] MEDS: ACETAMINOPHEN 1,000 MG/100 ML VIAL IV PRN ×3 (00:48→16:20)
[2019-05-06] MEDS: ALBUT/IPRATROP 3MG/0.5MG NEB 3 ML VIAL NEB SCH ×6 (02:26→23:25)
[2019-05-06] MEDS ORDERED: VANCOMYCIN TROUGH ONE (03:30)
[2019-05-06] MEDS: CEFEPIME 2,000 MG in SYRINGE 7.5 ML IV SCH ×3 (03:39→20:41)
[2019-05-06 05:59] LABS: Prothrombin Time 39.9 Seconds (9.0-12.0)
[2019-05-06 06:00] LABS: BUN Creatinine Ratio 17.9 (10-20); Calcium 8.7 mg/dl (8.5-10.1); Creatinine Clr Calc Pharmacy 68.9 ml/min; Est GFR (African American) 76.5; Phosphorus 2.3 mg/dl (2.5-4.9); Potassium 3.9 mmol/L (3.5-5.1)
[2019-05-06 06:01] LABS: INR 4.1 (0.9-1.1)
--- NOTE | 2019-05-06 06:18 | Billing Data ---
Date of Service May 05, 2019 Coding Level of Care Code Critical Care 1st 30-74 mins Time Spent (min) 40 Comment I have personally spent 40 minutes of critical care time in the direct management of this patient. This is a life/limb threatening event. This includes time spent evaluating patient, direct bedside care, chart review, placing orders, interpretation of diagnostic studies, discussion with consultants, patient, and/or family members regarding treatment decisions, as well as other required patient management activities. This time is exclusive of all separately billable procedures, and teaching time and separate from and in addition to any other critical care service time.
--- NOTE | 2019-05-06 06:31 | Critical Care Progress Note ---
Date of Service May 06, 2019 Assessment & Plan (1) Respiratory syncytial virus pneumonia: Ricardo Krishnan is a 73y/o M w/ PMH of chronic atrial fibrillation on warfarin, hypercholesterolemia, senile dementia, CAD, CHF the presented on 05/03 with acute shortness of breath and hypoxia Neuro: - [facility] ICU: positive - patient has baseline dementia - patient placed in mittens for continued patient protection, as he has continued to pull at all lines and tubes Cardiac/vascular: - patient has chronic A. fib, CAD, CHF, and hypercholestermia - Diltiazem 125mls @ 15ml/hr Q8; increased Metoprolol Tartrate to 7.5mg IV Q4 - cardiology is following - Echo demonstrated normal LV size, hyperdynamic systolic function, EF>70%, no regional wall motion abnormalities, moderate left atrial dilation, mild right atrial dilation, and mild pulmonary hypertension Respiratory: - Influenza negative, BioFire positive for RSV - maintaining sats >92% on 6L Oxymask; BiPAP QHS - CT Abd/Pelv 05/04 demonstrated minimal atelectasis right base, and consolidative infiltrate left base - CXR 05/05 demonstrated interval development of a left suprahilar airspace opacity and increasing left basilar opacity GI/Nutrition: - NPO - gastric distention demonstrated on KUB 05/04 - NG tube trial clamped for approx 3 hours; patient had increasing distention and pain, patient pulled NG tube, will re-evaluate for determination of need to replace - if increase in distention or return of nausea/vomiting overnight will need replacement of NG tube - CT Abd/Pelvis 05/04 demonstrated non-obstructive bowel pattern, with no eviden ce of bowel distention - KUB 05/05 demonstrated nasogastric tube terminating at a post-pyloric location Renal/Lytes: - Phos 2.3 this AM; repleted with 18mmol of Kphos - ionized calcium 1.09 : - continue strict I&Os. Endo: - no past medical history of T2DM, or hypothyroidism - started on SSI with correction only, no carb ratio Heme: - Stable H&H - continue to monitor ID: - Influenza negative, Biofire positive for RSV - on Cefepime 2000mg Q12h, Levaquin Q24h LINES/IV ACCESS: - PIVs - Nasogastric tube DVT PROPHYLAXIS: - chemical and mechanical prophylaxis contraindicated, patient is unable to follow commands, and requiring soft restrains; therefore a fall risk Admission and Anticipated Discharge Date Admission Date: May 04, 2019 Supervising Physician Co-Signing Physician Notes Dr. Layne was resident physician during care of patient. I separately evaluated patient for jang portions of the history and the exam. I was present during the critical portion of medical decision making, and I discussed the case with the resident. I generally agree with the findings and plan. Patient's tachycardia has improved, patient able to be downgraded out of ICU. Subjective Patient doing well this AM; at that time, no continued abdominal pain or discomfort, no complaints of nausea or vomiting. Trialed on a NG clamp during the day, after approximately 3 hours, on re- evaluation now having more increased abdominal pain and discomfort, with feelings of nausea. Review of Systems Review of Systems: All systems reviewed & are unremarkable except as noted in Subjective Physical Exam Constitutional: WD/WN, vitals as above Eyes: PERRL, conjunctivae normal, anicteric sclerae Neck: normal visual inspection Respiratory: normal respiratory effort, lungs clear to auscultation Cardiovascular: Rate/Rhythm: regular rate and regular rhythm Heart Sounds: normal S1 and normal S2; no gallop, no murmur and no cardiac rub Gastrointestinal (Abdomen): Inspection/Auscultation: + abdomen distended Percussion/Palpation: + abdomen tender, + guarding and abdomen soft; no hepatosplenomegaly Musculoskeletal: no cyanosis or clubbing, extremities motor strength 5/5 Skin: no rashes, warm and dry Neurologic: PERRL, EOMI, accommodation nl, no face palsy, no dysarthria Psychiatric: Orientation: alert Insight: not poor insight Judgement: not poor judgement Lymphatic: no cervical or axillary lymphadenopathy Results & Data ([facility]) Vital Signs (Past 12 Hours) Vital Signs Pulse Pulse Resp BP Pulse Ox 05/06/19 03:39 142 H 161/71 H 05/06/19 00:48 123 H 126/73 05/05/19 23:07 127 H 161/75 H 05/05/19 20:44 149 H 125/73 05/05/19 19:51 112 H 28 H 95 Laboratory Results 05/06/19 05/06/19 05/06/19 Range/Units 12:23 07:16 06:10 WBC 8.43 Cancelled RBC 4.45 L Cancelled Hgb 13.2 L Cancelled Hct 40.9 L Cancelled MCV 91.9 Cancelled MCH 29.7 Cancelled MCHC 32.3 Cancelled RDW Std Deviation 57.5 H Cancelled RDW Coeff of Alex 16.8 H Cancelled Plt Count 142 Cancelled MPV 9.9 Cancelled Immature Gran % (Auto) 0.2 Cancelled Neut % (Auto) 85.1 Cancelled Lymph % (Auto) 7.9 Cancelled Harper % (Auto) 5.1 Cancelled Eos % (Auto) 1.5 Cancelled Baso % (Auto) 0.2 Cancelled Immature Gran # (Auto) 0.02 Cancelled Neut # (Auto) 7.16 H Cancelled Lymph # (Auto) 0.67 L Cancelled Harper # (Auto) 0.43 Cancelled Eos # (Auto) 0.13 Cancelled Baso # (Auto) 0.02 Cancelled Absolute Nucleated RBC Cancelled Nucleated RBC % (auto) Cancelled Neutrophils % (Manual) Cancelled Band Neutrophils % Cancelled Lymphocytes % (Manual) Cancelled Prolymphocyte % Cancelled Reactive Lymphs % (Man) Cancelled Monocytes % (Manual) Cancelled Eosinophils % (Manual) Cancelled Basophils % (Manual) Cancelled Metamyelocytes % (Man) Cancelled Myelocytes % (Man) Cancelled Promyelocytes % (Man) Cancelled Blast Cells % (Manual) Cancelled Plasma Cell % (Manual) Cancelled Other Cells % Cancelled Nucleated RBC % Cancelled Neutrophils # (Manual) Cancelled Band Neutrophils # Cancelled Total Absolute Neuts Cancelled Lymphocytes # (Manual) Cancelled Prolymphocyte # Cancelled Reactive Lymphs # Cancelled Total Abs Lymphocytes Cancelled Monocytes # (Manual) Cancelled Eosinophils # (Manual) Cancelled Basophils # (Manual) Cancelled Metamyelocytes # (Man) Cancelled Myelocytes # (Manual) Cancelled Promyelocytes # (Man) Cancelled Blast Cells # (Man) Cancelled Plasma Cell # (Manual) Cancelled Other Cells # Cancelled Nucleated RBCs # (Man) Cancelled Hypersegmented Neuts Cancelled Hyposegmented Neuts Cancelled Hypogranular Neuts Cancelled Large Granular Lymphs Cancelled # Lrg Granular Lymphs Cancelled Hairy Cells Cancelled Smudge Cells Cancelled Toxic Granulation Cancelled Toxic Vacuolation Cancelled Dohle Bodies Cancelled Lucretia Rods Cancelled Platelet Estimate Cancelled Hypogranular Platelets Cancelled Clumped Platelets Cancelled Giant Platelets Cancelled Platelet Satelliting Cancelled RBC Morphology Cancelled Polychromasia Cancelled Hypochromasia Cancelled Poikilocytosis Cancelled Basophilic Stippling Cancelled Anisocytosis Cancelled Microcytosis Cancelled Macrocytosis Cancelled Spherocytes Cancelled Pappenheimer Bodies Cancelled Sickle Cells Cancelled Target Cells Cancelled Tear Drop Cells Cancelled Ovalocytes Cancelled Stomatocytes Cancelled Alexander-Donald Bodies Cancelled Echinocytes Cancelled Acanthocytes (Spur) Cancelled Rouleaux Cancelled RBC Agglutinates Cancelled Schistocytes Cancelled RBC Morph Comment Cancelled Sezary Cell Cancelled PT (9.0-12.0) Seconds INR (0.9-1.1) Sodium (136-145) mmol/L Potassium (3.5-5.1) mmol/L Chloride (98-107) mmol/L Carbon Dioxide (21-32) mmol/L Anion Gap (3-11) BUN (7-18) mg/dl Creatinine (0.6-1.4) mg/dl Est Cr Clr Drug Dosing ml/min Est GFR ( Amer) Est GFR (Non-Af Amer) BUN/Creatinine Ratio (10-20) Glucose (70-99) mg/dl POC Glucose 107 H (70-99) mg/dl Lactate (0.4-2.0) mmol/L Calcium (8.5-10.1) mg/dl Phosphorus (2.5-4.9) mg/dl Magnesium (1.8-2.4) mg/dl Specimen Hemolysis Coronavirus (PCR) Respiratory Virus [facility] Test Comment 05/06/19 05/06/19 05/06/19 Range/Units 05:20 05:20 05:20 WBC Cancelled RBC Cancelled Hgb Cancelled Hct Cancelled MCV Cancelled MCH Cancelled MCHC Cancelled RDW Std Deviation Cancelled RDW Coeff of Alex Cancelled Plt Count Cancelled MPV Cancelled Immature Gran % (Auto) Cancelled Neut % (Auto) Cancelled Lymph % (Auto) Cancelled Harper % (Auto) Cancelled Eos % (Auto) Cancelled Baso % (Auto) Cancelled Immature Gran # (Auto) Cancelled Neut # (Auto) Cancelled Lymph # (Auto) Cancelled Harper # (Auto) Cancelled Eos # (Auto) Cancelled Baso # (Auto) Cancelled Absolute Nucleated RBC Cancelled Nucleated RBC % (auto) Cancelled Neutrophils % (Manual) Cancelled Band Neutrophils % Cancelled Lymphocytes % (Manual) Cancelled Prolymphocyte % Cancelled Reactive Lymphs % (Man) Cancelled Monocytes % (Manual) Cancelled Eosinophils % (Manual) Cancelled Basophils % (Manual) Cancelled Metamyelocytes % (Man) Cancelled Myelocytes % (Man) Cancelled Promyelocytes % (Man) Cancelled Blast Cells % (Manual) Cancelled Plasma Cell % (Manual) Cancelled Other Cells % Cancelled Nucleated RBC % Cancelled Neutrophils # (Manual) Cancelled Band Neutrophils # Cancelled Total Absolute Neuts Cancelled Lymphocytes # (Manual) Cancelled Prolymphocyte # Cancelled Reactive Lymphs # Cancelled Total Abs Lymphocytes Cancelled Monocytes # (Manual) Cancelled Eosinophils # (Manual) Cancelled Basophils # (Manual) Cancelled Metamyelocytes # (Man) Cancelled Myelocytes # (Manual) Cancelled Promyelocytes # (Man) Cancelled Blast Cells # (Man) Cancelled Plasma Cell # (Manual) Cancelled Other Cells # Cancelled Nucleated RBCs # (Man) Cancelled Hypersegmented Neuts Cancelled Hyposegmented Neuts Cancelled Hypogranular Neuts Cancelled Large Granular Lymphs Cancelled # Lrg Granular Lymphs Cancelled Hairy Cells Cancelled Smudge Cells Cancelled Toxic Granulation Cancelled Toxic Vacuolation Cancelled Dohle Bodies Cancelled Lucretia Rods Cancelled Platelet Estimate Cancelled Hypogranular Platelets Cancelled Clumped Platelets Cancelled Giant Platelets Cancelled Platelet Satelliting Cancelled RBC Morphology Cancelled Polychromasia Cancelled Hypochromasia Cancelled Poikilocytosis Cancelled Basophilic Stippling Cancelled Anisocytosis Cancelled Microcytosis Cancelled Macrocytosis Cancelled Spherocytes Cancelled Pappenheimer Bodies Cancelled Sickle Cells Cancelled Target Cells Cancelled Tear Drop Cells Cancelled Ovalocytes Cancelled Stomatocytes Cancelled Alexander-Donald Bodies Cancelled Echinocytes Cancelled Acanthocytes (Spur) Cancelled Rouleaux Cancelled RBC Agglutinates Cancelled Schistocytes Cancelled RBC Morph Comment Cancelled Sezary Cell Cancelled PT (9.0-12.0) Seconds INR (0.9-1.1) Sodium 138 (136-145) mmol/L Potassium 3.9 (3.5-5.1) mmol/L Chloride 106 (98-107) mmol/L Carbon Dioxide 28 (21-32) mmol/L Anion Gap 4.0 (3-11) BUN 20 H (7-18) mg/dl Creatinine 1.11 (0.6-1.4) mg/dl Est Cr Clr Drug Dosing 68.9 ml/min Est GFR ( Amer) 76.5 Est GFR (Non-Af Amer) 66.0 BUN/Creatinine Ratio 17.9 (10-20) Glucose 127 H (70-99) mg/dl POC Glucose (70-99) mg/dl Lactate 1.0 (0.4-2.0) mmol/L Calcium 8.7 (8.5-10.1) mg/dl Phosphorus 2.3 L (2.5-4.9) mg/dl Magnesium 2.0 (1.8-2.4) mg/dl Specimen Hemolysis Coronavirus (PCR) Respiratory Virus [facility] Test Comment 05/06/19 05/05/19 05/05/19 Range/Units 05:20 16:48 16:46 WBC RBC Hgb Hct MCV MCH MCHC RDW Std Deviation RDW Coeff of Alex Plt Count MPV Immature Gran % (Auto) Neut % (Auto) Lymph % (Auto) Harper % (Auto) Eos % (Auto) Baso % (Auto) Immature Gran # (Auto) Neut # (Auto) Lymph # (Auto) Harper # (Auto) Eos # (Auto) Baso # (Auto) Absolute Nucleated RBC Nucleated RBC % (auto) Neutrophils % (Manual) Band Neutrophils % Lymphocytes % (Manual) Prolymphocyte % Reactive Lymphs % (Man) Monocytes % (Manual) Eosinophils % (Manual) Basophils % (Manual) Metamyelocytes % (Man) Myelocytes % (Man) Promyelocytes % (Man) Blast Cells % (Manual) Plasma Cell % (Manual) Other Cells % Nucleated RBC % Neutrophils # (Manual) Band Neutrophils # Total Absolute Neuts Lymphocytes # (Manual) Prolymphocyte # Reactive Lymphs # Total Abs Lymphocytes Monocytes # (Manual) Eosinophils # (Manual) Basophils # (Manual) Metamyelocytes # (Man) Myelocytes # (Manual) Promyelocytes # (Man) Blast Cells # (Man) Plasma Cell # (Manual) Other Cells # Nucleated RBCs # (Man) Hypersegmented Neuts Hyposegmented Neuts Hypogranular Neuts Large Granular Lymphs # Lrg Granular Lymphs Hairy Cells Smudge Cells Toxic Granulation Toxic Vacuolation Dohle Bodies Lucretia Rods Platelet Estimate Hypogranular Platelets Clumped Platelets Giant Platelets Platelet Satelliting RBC Morphology Polychromasia Hypochromasia Poikilocytosis Basophilic Stippling Anisocytosis Microcytosis Macrocytosis Spherocytes Pappenheimer Bodies Sickle Cells Target Cells Tear Drop Cells Ovalocytes Stomatocytes Alexander-Donald Bodies Echinocytes Acanthocytes (Spur) Rouleaux RBC Agglutinates Schistocytes RBC Morph Comment Sezary Cell PT 39.9 H (9.0-12.0) Seconds INR 4.1 H (0.9-1.1) Sodium (136-145) mmol/L Potassium (3.5-5.1) mmol/L Chloride (98-107) mmol/L Carbon Dioxide (21-32) mmol/L Anion Gap (3-11) BUN (7-18) mg/dl Creatinine (0.6-1.4) mg/dl Est Cr Clr Drug Dosing ml/min Est GFR ( Amer) Est GFR (Non-Af Amer) BUN/Creatinine Ratio (10-20) Glucose (70-99) mg/dl POC Glucose 115 H (70-99) mg/dl Lactate 3.0 H* (0.4-2.0) mmol/L Calcium (8.5-10.1) mg/dl Phosphorus (2.5-4.9) mg/dl Magnesium (1.8-2.4) mg/dl Specimen Hemolysis Coronavirus (PCR) Respiratory Virus [facility] Test Comment 05/04/19 Range/Units 13:09 WBC RBC Hgb Hct MCV MCH MCHC RDW Std Deviation RDW Coeff of Alex Plt Count MPV Immature Gran % (Auto) Neut % (Auto) Lymph % (Auto) Harper % (Auto) Eos % (Auto) Baso % (Auto) Immature Gran # (Auto) Neut # (Auto) Lymph # (Auto) Harper # (Auto) Eos # (Auto) Baso # (Auto) Absolute Nucleated RBC Nucleated RBC % (auto) Neutrophils % (Manual) Band Neutrophils % Lymphocytes % (Manual) Prolymphocyte % Reactive Lymphs % (Man) Monocytes % (Manual) Eosinophils % (Manual) Basophils % (Manual) Metamyelocytes % (Man) Myelocytes % (Man) Promyelocytes % (Man) Blast Cells % (Manual) Plasma Cell % (Manual) Other Cells % Nucleated RBC % Neutrophils # (Manual) Band Neutrophils # Total Absolute Neuts Lymphocytes # (Manual) Prolymphocyte # Reactive Lymphs # Total Abs Lymphocytes Monocytes # (Manual) Eosinophils # (Manual) Basophils # (Manual) Metamyelocytes # (Man) Myelocytes # (Manual) Promyelocytes # (Man) Blast Cells # (Man) Plasma Cell # (Manual) Other Cells # Nucleated RBCs # (Man) Hypersegmented Neuts Hyposegmented Neuts Hypogranular Neuts Large Granular Lymphs # Lrg Granular Lymphs Hairy Cells Smudge Cells Toxic Granulation Toxic Vacuolation Dohle Bodies Lucretia Rods Platelet Estimate Hypogranular Platelets Clumped Platelets Giant Platelets Platelet Satelliting RBC Morphology Polychromasia Hypochromasia Poikilocytosis Basophilic Stippling Anisocytosis Microcytosis Macrocytosis Spherocytes Pappenheimer Bodies Sickle Cells Target Cells Tear Drop Cells Ovalocytes Stomatocytes Alexander-Donald Bodies Echinocytes Acanthocytes (Spur) Rouleaux RBC Agglutinates Schistocytes RBC Morph Comment Sezary Cell PT (9.0-12.0) Seconds INR (0.9-1.1) Sodium (136-145) mmol/L Potassium (3.5-5.1) mmol/L Chloride (98-107) mmol/L Carbon Dioxide (21-32) mmol/L Anion Gap (3-11) BUN (7-18) mg/dl Creatinine (0.6-1.4) mg/dl Est Cr Clr Drug Dosing ml/min Est GFR ( Amer) Est GFR (Non-Af Amer) BUN/Creatinine Ratio (10-20) Glucose (70-99) mg/dl POC Glucose (70-99) mg/dl Lactate (0.4-2.0) mmol/L Calcium (8.5-10.1) mg/dl Phosphorus (2.5-4.9) mg/dl Magnesium (1.8-2.4) mg/dl Specimen Hemolysis Coronavirus (PCR) Cancelled Respiratory Virus Sourc Cancelled Misc Test Comment Cancelled Medications Administered Current Inpatient Medications Albuterol (Duoneb) 3 ml NEB Q4R ANTONIO Stop: 06/03/19 14:59 Last Admin: 05/06/19 11:56 Dose: 3 ml Documented by: Diltiazem HCl 125 mg/ Dextrose 125 mls @ 15 mls/hr IV .Q8H20M [facility]; Protocol Stop: 06/03/19 10:29 Last Admin: 05/06/19 07:34 Dose: 15 mg/hr, 15 mls/hr Documented by: Levofloxacin/Dextrose (Levaquin/D5w) 750 mg in 150 mls @ 100 mls/hr IV Q24H [facility] Stop: 05/12/19 11:59 Last Admin: 05/06/19 12:27 Dose: 100 mls/hr Documented by: Acetaminophen (Ofirmev) 1,000 mg in 100 mls @ 400 mls/hr IV Q8H PRN PRN Reason: Pain or Fever Stop: 05/08/19 16:40 Last Infusion: 05/06/19 08:44 Dose: Infused Documented by: Cefepime HCl 2,000 mg/ Syringe 20 mls @ 5 mls/min IV Q8H [facility]; Protocol Stop: 05/12/19 23:59 Last Admin: 05/06/19 12:29 Dose: 5 mls/min Documented by: Insulin Aspart (Novolog Flexpen) 0 units SC ACHS [facility] Stop: 06/05/19 11:29 Last Admin: 05/06/19 12:25 Dose: Not Given Documented by: Ioversol (Optiray 320 100ml) 93 ml IV ONCE PRN PRN Reason: Interaction Checking Stop: 05/09/19 11:14 Last Admin: 05/05/19 11:16 Dose: 93 ml Documented by: Metoprolol Tartrate (Lopressor) 7.5 mg IV Q4 [facility] Stop: 06/05/19 11:59 Last Admin: 05/06/19 12:28 Dose: 7.5 mg Documented by: Miscellaneous Information (Cefepime Consult Active) 1 ea N/A UD PRN PRN Reason: Consult Stop: 06/03/19 12:10 Ondansetron HCl (Zofran) 4 mg IV Q4H PRN PRN Reason: Nausea Stop: 06/04/19 04:58 Resident Activity Tracking Resident Involvement: Resident Care Provided Care Provided: Adult Hospital Medicine
[2019-05-06] MEDS ORDERED: METOPROLOL TARTRATE 1 MG/ML VIAL IV SCH (07:00)
[2019-05-06] MEDS: dilTIAZem HCL 125 MG in DEXTROSE 5% 100 ML IV SCH ×3 (07:34→22:47)
[2019-05-06 07:50] LABS: Basophils # (auto) 0.02 K/uL (0-0.2); Basophils % (auto) 0.2 %; Eosinophils # (auto) 0.13 K/uL (0-0.5); Eosinophils % (auto) 1.5 %; Hematocrit (blood only) 40.9 % (42-52); Hemoglobin 13.2 g/dL (14.0-18.0); Immature Granulocytes # (auto) 0.02 K/uL (0.00-0.02); Immature Granulocytes % (auto) 0.2 %; Lymphocytes # (auto) 0.67 K/uL (1.2-3.4); Lymphocytes % (auto) 7.9 %; Mean Corpuscular Hemoglobin 29.7 pg (25-34); Mean Corpuscular Volume 91.9 fL (80-100); Mean Platelet Volume 9.9 fL (7.4-10.4); Monocytes # (auto) 0.43 K/uL (0.11-0.59); Monocytes % (auto) 5.1 %; Neutrophils # (auto) 7.16 K/uL (1.4-6.5); Neutrophils % (auto) 85.1 %; Platelet Count 142 K/uL (130-400); RDW Coefficient of Variation 16.8 % (11.5-14.5); RDW Standard Deviation 57.5 fL (36.4-46.3); Red Blood Count 4.45 M/uL (4.7-6.1); White Blood Count 8.43 K/uL (4.8-10.8)
[2019-05-06 07:54] LABS: Mean Corpuscular Hgb Conc 32.3 g/dL (32-36)
--- NOTE | 2019-05-06 08:34 | Cardiology Progress Note ---
Date of Service May 06, 2019 Subjective On BIpAP, poor historian, Just says yes Results & Data Vital Signs (Past 12 Hours) Vital Signs Pulse Resp BP Pulse Ox 05/06/19 08:03 93 05/06/19 07:19 136 H 115/99 05/06/19 07:00 125 H 27 H 96 05/06/19 06:00 125 H 36 H 88 L 05/06/19 05:21 121 H 36 H 151/83 H 05/06/19 05:00 117 H 29 H 05/06/19 04:22 133 H 21 152/87 H 05/06/19 04:00 122 H 25 H 05/06/19 03:39 142 H 161/71 H 05/06/19 03:22 136 H 18 161/71 H 05/06/19 03:00 129 H 26 H 95 05/06/19 02:22 142 H 31 H 149/82 H 96 05/06/19 02:00 124 H 26 H 94 05/06/19 01:27 133 H 26 H 116/70 95 05/06/19 01:22 116 H 18 175/112 H 95 05/06/19 01:00 108 H 29 H 93 05/06/19 00:48 123 H 126/73 05/06/19 00:22 115 H 35 H 176/73 H 99 05/06/19 00:00 114 H 26 H 97 05/05/19 23:22 112 H 36 H 115/80 89 L 05/05/19 23:07 127 H 161/75 H 05/05/19 23:00 129 H 33 H 98 05/05/19 22:23 137 H 31 H 161/75 H 98 05/05/19 22:00 136 H 30 H 88 L 05/05/19 21:21 121 H 28 H 123/80 87 L 05/05/19 21:00 117 H 29 H 90 05/05/19 20:44 149 H 125/73 As noted he has advanced dementia HEENT his carotid upstrokes were difficult to assess given his tachycardia Lungs inspiratory and expiratory rhonchi Heart tachycardic (irregularly irregular) no appreciable murmurs Abdomen soft nontender nondistended decreased bowel sounds Impressions: (1) Sepsis: Secondary to RSV. Being managed by the intensive care team (2) Rapid atrial fibrillation: He is still having Rigors. With his Rigors as expected his heart rate does rise. He was on a combination of calcium channel blockers and beta- blockers as an outpatient. BB increased to 5mg IV Q4 this am due to high HR's and can be uptitrated to 7.5mg IV Q4 and even 10mg Q4 if necessary. Still on cardizem drip as well (3) Dementia: Advanced. (4) Hypertension: Blood pressure is adequate. 5. Report of a negative dobutamine stress echo in 2018 in the outpatient cardiology records at [facility]. At that time his LV function was preserved. 6. History of an LAD stent in approximately 2003 All this was discussed with the surface plate inspector and the nursing staff in the ICU.
[2019-05-06] MEDS ORDERED: POTASSIUM PHOS 3 MMOL/1 ML INFUSION IV STA (10:02)
[2019-05-06] MEDS ORDERED: POTASSIUM PHOSPHATE 18 MMOL in SODIUM CHLORIDE 0.9% 500 ML IV ONE (10:45)
--- NOTE | 2019-05-06 10:57 | Hospitalist Progress Note ---
Date of Service May 06, 2019 Assessment & Plan (1) Acute respiratory failure with hypoxia: Continue to aim O2 > 90% using oxymask Secondary to RSV infection, suspected bacterial pneumonia and pulmonary edema. (2) RSV (respiratory syncytial virus infection): Supportive management. Droplet precautions. (3) Pneumonia: Multifocal PNA on CXR today ?Aspiration vs. community acquired. Continue Cefepime + Levaquin (4) Sepsis: Source RSV +/- bacterial PNA. Blood cultures no growth in 24 hours. Urine culture preliminary no growth. Sputum culture pending. If continues to spike temps will need repeat blood cultures (5) Toxic metabolic encephalopathy: Secondary to above infection in setting of dementia. (6) Rapid atrial fibrillation: Appreciate cardiology management with IV diltiazem and metoprolol. Anticoagulation with warfarin; INR currently supratherapeutic, warfarin on hold. INR 4.1 suspect due to levaquin. (7) Acute on chronic diastolic heart failure: Suspect rate-related pulmonary edema on initial CXR. Appears mostly euvolemic at this time and agree with holding lasix. (8) Hypertension: Stable on diltiazem and metoprolol mainly for rate control. (9) Demand ischemia: Mild elevation in troponin in setting of a. fib with RVR. (10) Dementia: Rivastigmine + memantine as an outpatient. (11) Ileus: NG tube currently clamped. Continue to monitor for increasing distension. SBO ruled out with CT A/P (12) DVT prophylaxis: INR 4.1 supratherapeutic Admission and Anticipated Discharge Date Admission Date: May 04, 2019 Subjective Patient appears much more alert this morning. Aware he is in [place] and knows his name and current year. Reports some mild pain in both his upper forearms, possible related to the soft mittens he is wearing as pulling at NG tube. Patient on oxymask overnight. Large amount of secretions in upper airway audible from bedside. Review of Systems Review of Systems: All systems reviewed & are unremarkable except as noted in HPI & below (limited due to cognitive state) Physical Exam Constitutional: + ill appearing; no acute distress Eyes: + anicteric sclerae; normal pupil size ENMT: Mouth: + dry oral mucous membranes Neck: trachea midline Neck extended and to right side Respiratory: + respiratory distress, + labored breathing, + retractions, + uses accessory muscles and + cough (wet) Auscultation: + rhonchi (b/l equal); no crackles, no rales and no wheezes Cardiovascular: Rate/Rhythm: + tachycardic and + irregularly irregular Vessels: no JVD Extremities: normal capillary refill; no calf tenderness and no pedal edema (with SCDs in place) Gastrointestinal (Abdomen): Inspection/Auscultation: + abdomen distended; + abnormal bowel sounds (no audible bowel sounds present) Percussion/Palpation: abdomen soft Skin: no rashes, warm and dry (no cellulitic changes on exposed skin) Neurologic: moves all extremities, awake and + confused; no focal motor deficits (limited exam due to contraints and congnitive function) Psychiatric: Orientation: alert, oriented to person (self), oriented to place (town) and oriented to time (year) Genitourinary: no CVA tenderness Lymphatic: no cervical or axillary lymphadenopathy Results & Data ([facility]) Vital Signs (Past 12 Hours) Vital Signs Pulse Resp BP Pulse Ox 05/06/19 09:22 125 H 16 123/81 96 05/06/19 08:56 126 H 26 H 134/86 96 05/06/19 08:22 121 H 25 H 154/83 H 98 05/06/19 08:03 93 05/06/19 07:32 110 H 21 115/99 98 05/06/19 07:19 136 H 115/99 05/06/19 07:00 125 H 27 H 96 05/06/19 06:00 125 H 36 H 88 L 05/06/19 05:21 121 H 36 H 151/83 H 05/06/19 05:00 117 H 29 H 05/06/19 04:22 133 H 21 152/87 H 05/06/19 04:00 122 H 25 H 05/06/19 03:39 142 H 161/71 H 05/06/19 03:22 136 H 18 161/71 H 05/06/19 03:00 129 H 26 H 95 05/06/19 02:22 142 H 31 H 149/82 H 96 05/06/19 02:00 124 H 26 H 94 05/06/19 01:27 133 H 26 H 116/70 95 05/06/19 01:22 116 H 18 175/112 H 95 05/06/19 01:00 108 H 29 H 93 05/06/19 00:48 123 H 126/73 05/06/19 00:22 115 H 35 H 176/73 H 99 05/06/19 00:00 114 H 26 H 97 05/05/19 23:22 112 H 36 H 115/80 89 L 05/05/19 23:07 127 H 161/75 H 05/05/19 23:00 129 H 33 H 98 PG Care Time/CCT Total # of Minutes Spent Total Time Spent with Patient: Total time spent is greater than 50% in coordination of care (as documented) at patient's floor/unit and/or counseling patient: Coding Level of Care Code 33099 Subseq Hosp Care Lvl 3 Diagnoses Acute respiratory failure with hypoxia J96.01 RSV (respiratory syncytial virus infection) B97.4 Pneumonia J18.9 Laterality: left Lung location: unspecified part of lung Pneumonia type: due to unspecified organism Sepsis A41.9; R65.20; J96.01 Acute respiratory failure type: with hypoxia Sepsis acute organ dysfunction status: with acute organ dysfunction Sepsis type: sepsis due to unspecified organism Severe sepsis acute organ dysfunction type: acute respiratory failure Severe sepsis shock status: without septic shock Toxic metabolic encephalopathy G92 Rapid atrial fibrillation I48.91 Acute on chronic diastolic heart failure I50.33 Hypertension I10 Hypertension type: unspecified Demand ischemia I24.8 Dementia F03.90 Dementia behavioral disturbance: without behavioral disturbance Dementia type: unspecified type Ileus K56.7 DVT prophylaxis Z29.9 (1) Dementia Dementia behavioral disturbance: without behavioral disturbance Dementia type: unspecified type Qualified Code(s): F03.90 - Unspecified dementia without behavioral disturbance (2) Sepsis Acute respiratory failure type: with hypoxia Sepsis acute organ dysfunction status: with acute organ dysfunction Sepsis type: sepsis due to unspecified organism Severe sepsis acute organ dysfunction type: acute respiratory failure Severe sepsis shock status: without septic shock Qualified Code(s): A41.9 - Sepsis, unspecified organism; R65.20 - Severe sepsis without septic shock; J96.01 - Acute respiratory failure with hypoxia (3) Hypertension Hypertension type: unspecified Qualified Code(s): I10 - Essential (primary) hypertension (4) Pneumonia Laterality: left Lung location: unspecified part of lung Pneumonia type: due to unspecified organism Qualified Code(s): J18.9 - Pneumonia, unspecified organism
--- NOTE | 2019-05-06 11:22 | XRay Report ---
KUB HISTORY: abdominal distension, no bowel sounds COMPARISON: KUB 05/05/2019. FINDINGS: Nasogastric tube terminates at a postpyloric location and is likely within the proximal duo denum. A rectal thermometer is in place. No renal calculi. No ureteral calculi. No pneumoperitoneum or pneumatosis. A few borderline dilated gas-filled loops of large and small bowel are noted. This neely s improved. The stomach is almost completely decompressed. IMPRESSION: 1. Nasogastric tube terminates at a postpyloric location and is likely within the proximal duodenum. 2. A few borderline dilated gas-filled loops of large and small bowel are noted. This has improved. T he stomach is almost completely decompressed. ACT 112: Negative or not required by law. Electronically signed by: Terrence Huizar M.D. 05/06/2019 11:20 AM
--- NOTE | 2019-05-06 11:24 | XRay Report ---
XR chest 1V portable CLINICAL HISTORY: ?worsening pulmonary edema COMPARISON STUDY: Chest CT January 31, 2019. Chest radiograph May 04, 2019. FINDINGS: Moderate cardiomegaly is noted. Left suprahilar airspace opacity has developed. Left basila r opacity is also noted. There are mild right lung opacities. There is persistent pulmonary vascular congestion with possible mild pulmonary edema. No pneumothorax or pleural effusion is noted. IMPRESSION: 1. Interval development of left suprahilar airspace opacity and increasing left basilar opacity which favors multifocal pneumonia. Radiographic follow-up is recommended. 2. Persistent pulmonary vascular congestion. ACT 112: Negative or not required by law. Electronically signed by: Tahir Sullivan M.D. 05/06/2019 11:23 AM
--- NOTE | 2019-05-06 12:06 | Palliative Care Progress Note ---
Date of Service May 06, 2019 Assessment & Plan (1) Goals of care, counseling/discussion: -Patient is confused but less lethargic. On 6L oxymask. Told me he was in the store, could not tell me the date. -Patient's is ill and unable to visit. -Patient's creatinine is improved. Lactic acid is improved. He is still febrile. -Plan is to continue current treatment. No heroic measures such as CPR or intubation. Continue abx, lab draws, and supportive care. Goal ultimately is for patient to return home with his . Will depend on hospital course. -We will continue to follow as needed. (2) Respiratory syncytial virus pneumonia: (3) Sepsis: (4) Atrial fibrillation with RVR: Subjective Patient is more awake today. Still confused. Review of Systems Review of Systems: no pain no SOB Full ROS not obtained due to confusion Physical Exam Constitutional: + ill appearing and + lethargic; no acute distress ENMT: external ear and nose normal, oropharynx normal Respiratory: normal respiratory effort; no respiratory distress Auscultation: + crackles and + rhonchi Cardiovascular: Rate/Rhythm: + tachycardic Extremities: no edema Gastrointestinal (Abdomen): Inspection/Auscultation: normal bowel sounds Percussion/Palpation: abdomen soft Neurologic: moves all extremities, awake and + confused Psychiatric: Orientation: oriented to person; + not oriented to place and + not oriented to time Results & Data Vital Signs (Past 12 Hours) Vital Signs Pulse Resp BP Pulse Ox 05/06/19 09:22 125 H 16 123/81 96 05/06/19 08:56 126 H 26 H 134/86 96 05/06/19 08:22 121 H 25 H 154/83 H 98 05/06/19 08:03 93 05/06/19 07:32 110 H 21 115/99 98 05/06/19 07:19 136 H 115/99 05/06/19 07:00 125 H 27 H 96 05/06/19 06:00 125 H 36 H 88 L 05/06/19 05:21 121 H 36 H 151/83 H 05/06/19 05:00 117 H 29 H 05/06/19 04:22 133 H 21 152/87 H 05/06/19 04:00 122 H 25 H 05/06/19 03:39 142 H 161/71 H 05/06/19 03:22 136 H 18 161/71 H 05/06/19 03:00 129 H 26 H 95 05/06/19 02:22 142 H 31 H 149/82 H 96 05/06/19 02:00 124 H 26 H 94 05/06/19 01:27 133 H 26 H 116/70 95 05/06/19 01:22 116 H 18 175/112 H 95 05/06/19 01:00 108 H 29 H 93 05/06/19 00:48 123 H 126/73 05/06/19 00:22 115 H 35 H 176/73 H 99 PG Care Time/CCT Total # of Minutes Spent Total Time Spent with Patient: Total time spent is greater than 50% in coordination of care (as documented) at patient's floor/unit and/or counseling patient: 35 minutes. Coding Level of Care Code 61945 Subseq Hosp Care Lvl 3 Diagnoses Goals of care, counseling/discussion Z71.89 Respiratory syncytial virus pneumonia J12.1 Sepsis A41.9 Sepsis acute organ dysfunction status: unspecified Sepsis type: sepsis due to unspecified organism Atrial fibrillation with RVR I48.91 Time Spent (min) 35 (1) Sepsis Sepsis acute organ dysfunction status: unspecified Sepsis type: sepsis due to unspecified organism Qualified Code(s): A41.9 - Sepsis, unspecified organism
[2019-05-06] MEDS: INSULIN ASPART 100 UNITS/ML 3 ML PEN SC SCH ×3 (12:25→20:36)
[2019-05-06] MEDS: LEVOFLOXACIN/D5W 750 MG/150 ML BAG IV SCH (12:27)
[2019-05-06] MEDS ORDERED: LACTATED RINGER'S 250 ML IV ONE (18:50)
[2019-05-06] MEDS ORDERED: LACTATED RINGER'S 500 ML IV ONE (18:52)
[2019-05-06] MEDS: LACTATED RINGER'S 1,000 ML IV SCH ×2 (20:00→23:43)
[2019-05-07 02:52] LABS: BUN Creatinine Ratio 20.6 (10-20); Calcium 8.7 mg/dl (8.5-10.1); Creatinine Clr Calc Pharmacy 92.1 ml/min; Est GFR (African American) 101.9; Est GFR (Non-African American) 87.9; Magnesium 1.9 mg/dl (1.8-2.4); Potassium 3.7 mmol/L (3.5-5.1)
[2019-05-07 02:53] LABS: Phosphorus 1.8 mg/dl (2.5-4.9)
[2019-05-07] MEDS ORDERED: POTASSIUM PHOS 3 MMOL/1 ML INFUSION IV STA (03:03)
--- NOTE | 2019-05-07 03:13 | Communication Note ---
Date of Service: May 07, 2019 Was called to evaluate patient secondary to poor rate control in this patient with afib RVR. Rechecked electrolytes replacing via K phos IV. Also increasing metoprolol to 10 mg q4h on cardiology recommendation. Will continue to monitor closely.
[2019-05-07] MEDS ORDERED: POTASSIUM PHOSPHATE 21 MMOL in SODIUM CHLORIDE 0.9% 500 ML IV ONE (03:15)
[2019-05-07] MEDS: ALBUT/IPRATROP 3MG/0.5MG NEB 3 ML VIAL NEB SCH ×6 (03:20→23:21)
[2019-05-07] MEDS: METOPROLOL TARTRATE 1 MG/ML VIAL IV SCH ×6 (03:37→23:13)
[2019-05-07] MEDS: CEFEPIME 2,000 MG in SYRINGE 7.5 ML IV SCH ×3 (03:38→20:12)
[2019-05-07 06:43] LABS: Basophils # (auto) 0.01 K/uL (0-0.2); Basophils % (auto) 0.1 %; Eosinophils # (auto) 0.12 K/uL (0-0.5); Eosinophils % (auto) 1.6 %; Hematocrit (blood only) 36.6 % (42-52); Hemoglobin 11.7 g/dL (14.0-18.0); Immature Granulocytes # (auto) 0.02 K/uL (0.00-0.02); Immature Granulocytes % (auto) 0.3 %; Lymphocytes # (auto) 0.91 K/uL (1.2-3.4); Lymphocytes % (auto) 11.9 %; Mean Corpuscular Hemoglobin 29.3 pg (25-34); Mean Corpuscular Volume 91.5 fL (80-100); Monocytes # (auto) 0.32 K/uL (0.11-0.59); Monocytes % (auto) 4.2 %; Neutrophils # (auto) 6.28 K/uL (1.4-6.5); Neutrophils % (auto) 81.9 %; Platelet Count 144 K/uL (130-400); RDW Coefficient of Variation 16.9 % (11.5-14.5); RDW Standard Deviation 56.8 fL (36.4-46.3); White Blood Count 7.66 K/uL (4.8-10.8)
[2019-05-07 06:53] LABS: INR 3.5 (0.9-1.1); Prothrombin Time 34.1 Seconds (9.0-12.0)
[2019-05-07] MEDS: dilTIAZem HCL 125 MG in DEXTROSE 5% 100 ML IV SCH ×3 (07:15→20:12)
[2019-05-07 07:24] LABS: Albumin Level 2.6 gm/dl (3.4-5.0); BUN Creatinine Ratio 19.5 (10-20); Calcium 8.5 mg/dl (8.5-10.1); Creatinine Clr Calc Pharmacy 90.1 ml/min; Est GFR (African American) 100.9; Est GFR (Non-African American) 87.1; Magnesium 1.9 mg/dl (1.8-2.4)
[2019-05-07 07:28] LABS: Albumin Globulin Ratio 0.6 (0.9-2); Globulin 4.2 gm/dl (2.5-4.0); Phosphorus 2.5 mg/dl (2.5-4.9); Total Protein 6.8 gm/dl (6.4-8.2)
--- NOTE | 2019-05-07 07:30 | XRay Report ---
XR chest 1V portable CLINICAL HISTORY: ?worsening pulmonary edema COMPARISON STUDY: Chest radiograph May 06, 2019. FINDINGS: Nasogastric tube has been removed. There is no pneumothorax. No definite pleural effusion i s noted. Cardiomegaly is unchanged. Mild pulmonary edema has developed. Left perihilar and basilar ai rspace opacity persists. Right basilar opacity has developed. IMPRESSION: 1. Slight increase in bilateral airspace opacities which favor multifocal pneumonia. 2. Increase in mild pulmonary edema. ACT 112: Negative or not required by law. Electronically signed by: Tahir Sullivan M.D. 05/07/2019 7:28 AM
[2019-05-07] MEDS ORDERED: FUROSEMIDE 20 MG in SYRINGE 0 ML IV ONE ×2 (08:15→22:22)
[2019-05-07 08:18] LABS: Allen Test Pos (Pos); Base Excess ABG 3.7 mEq/L (-9-1.8); HCO3 ABG 28 mmol/L (19-24); Oxygen Saturation ABG 93.1 % (90-95); PCO2 ABG 39 mmHg (35-46); PO2 ABG 63 mmHg (80-95); pH ABG 7.47 (7.35-7.45)
[2019-05-07] MEDS: INSULIN ASPART 100 UNITS/ML 3 ML PEN SC SCH ×2 (08:49→12:04)
--- NOTE | 2019-05-07 09:23 | Cardiology Progress Note ---
Date of Service May 07, 2019 Subjective He is pleasantly demented. He has mittens on his hands due to confusion. In discussion with the nurses this morning he received IV fluids overnight and this morning the head of the bed was elevated at 15 degrees and he appears short of breath and dyspneic and was tachypneic as well. Results & Data Vital Signs (Past 12 Hours) Vital Signs Temp Pulse Pulse Resp BP BP Pulse Ox 05/07/19 08:52 135 H 182/94 H 05/07/19 07:42 37.9 C H 135 H 32 H 182/94 H 96 05/07/19 07:04 115 H 22 91 05/07/19 04:00 37.0 C 131 H 21 150/76 H 91 05/07/19 03:37 143 H 150/76 H 05/07/19 03:20 22 05/07/19 01:42 145/96 H 91 05/07/19 00:07 37.3 C 126 H 22 157/75 H 91 05/06/19 23:44 123 H 157/75 H 05/06/19 23:25 100 H 24 92 As noted he has advanced dementia HEENT his carotid upstrokes were difficult to assess given his tachycardia Lungs inspiratory and expiratory rhonchi With crackles in the bases bilaterally Heart tachycardic (irregularly irregular) no appreciable murmurs Abdomen soft nontender nondistended decreased bowel sounds Impressions: (1) Sepsis: Secondary to RSV. (2) Rapid atrial fibrillation: He was on a combination of calcium channel blockers and beta-blockers as an outpatient. His rates are still fast. His metoprolol was increased to 10 mg IV every 4 hours. I would increase his Cardizem drip to 20 mg/h. There is little benefit to the use of digoxin at this point as it is unlikely it will slow his rate significantly in the face of an increased catecholamine state. (3) Dementia: Advanced. (4) Hypertension: Blood pressure is adequate. 5. Report of a negative dobutamine stress echo in 2018 in the outpatient cardiology records at [facility]. At that time his LV function was preserved. 6. History of an LAD stent in approximately 2003 7. Crackles in the bases with a chest x-ray consistent with mild heart failure symptoms. His renal function is returned to normal. In light of that he did receive 20 mg of IV Lasix this morning if he does not put out approximately a liter I would give an additional 20 or 40 mg this afternoon. All this was discussed with the nursing staff
[2019-05-07] MEDS: LEVOFLOXACIN/D5W 750 MG/150 ML BAG IV SCH (12:09)
--- NOTE | 2019-05-07 14:51 | Hospitalist Progress Note ---
Date of Service May 07, 2019 Assessment & Plan (1) Acute respiratory failure with hypoxia: Continue to aim O2 > 90% using oxymask Secondary to RSV infection, suspected bacterial pneumonia and pulmonary edema. (2) Acute on chronic diastolic heart failure: Suspect rate-related pulmonary edema on initial CXR. Lasix 20mg IV given this morning after IV fluids started last night due to concern dehydration was driving his RVR. This lead to pulmonary edema this morning but he appears much improved after lasix given with good UO. (3) RSV (respiratory syncytial virus infection): Supportive management. Droplet precautions. (4) Pneumonia: Multifocal PNA ?Aspiration vs. community acquired. Continue Cefepime + Levaquin (5) Sepsis: Source RSV +/- bacterial PNA. Blood cultures no growth in 24 hours. Urine culture preliminary no growth. Sputum culture pending. If continues to spike temps will need repeat blood cultures (6) Toxic metabolic encephalopathy: Secondary to above infection in setting of dementia. Worse today with pulmonary edema and worse respiratory distress in addition to moving rooms from ICU to PCU. (7) Rapid atrial fibrillation: Appreciate cardiology management with IV diltiazem and metoprolol. Anticoagulation with warfarin; INR currently supratherapeutic, warfarin on hold. Increased dose of metoprolol this morning still not adequately controlling HR. On previous admission in 2018 it appears he had the same after lithotripsy and reponded well to digoxin. Discussed with Dr Ambrosio and will give loading dose 250mcg IV Q8H x3 then 125mcg daily. Hopefully this will mean diltiazem can been weaned. (8) Hypertension: Stable on diltiazem and metoprolol mainly for rate control. (9) Demand ischemia: Mild elevation in troponin in setting of a. fib with RVR. (10) Dementia: Rivastigmine + memantine as an outpatient. Restart once he is able to take PO meds. (11) Ileus: SBO ruled out with CT A/P Bowel sounds much improved SLT ordered for tomorrow, if unable to eat will need feeding tube at that time (12) DVT prophylaxis: INR 3.5 supratherapeutic Admission and Anticipated Discharge Date Admission Date: May 04, 2019 Subjective Patient in respiratory distress this morning after trial of IV fluids given overnight. No significant increase in O2 requirement but respiratory rate increased and using more accessory muscles and more labored breathing. Still does not appear to be able to manage his own secretions with gurgling at the back of his throat. Reviewed patient in the afternoon and appeared to be much improved with IV lasix given. Good UO response to this. Updated his over the phone in the afternoon. All questions and concerns answered. Review of Systems Review of Systems: All systems reviewed & are unremarkable except as noted in HPI & below Physical Exam Constitutional: + ill appearing; no acute distress Eyes: + anicteric sclerae; normal pupil size ENMT: Mouth: + dry oral mucous membranes Neck: trachea midline, no thyromegaly trachea midline Respiratory: + respiratory distress, + labored breathing, + retractions, + uses accessory muscles and + cough (wet) Auscultation: + rhonchi (b/l equal throughout); no crackles, no rales and no wheezes Cardiovascular: Rate/Rhythm: + tachycardic and + irregularly irregular Vessels: no JVD Extremities: normal capillary refill and + pedal edema (1+ b/l equal); no calf tenderness Gastrointestinal (Abdomen): Inspection/Auscultation: + abdomen distended (improving) and normal bowel sounds Percussion/Palpation: abdomen soft; abdomen nontender, no guarding and abdomen not rigid Skin: no rashes, warm and dry (no cellulitic changes on exposed skin) Neurologic: moves all extremities, awake and + confused; no focal motor deficits (limited exam due to contraints and congnitive function) Psychiatric: Orientation: alert, oriented to person (self) and oriented to place (town); + not oriented to time Results & Data ([facility]) Vital Signs (Past 12 Hours) Vital Signs Temp Pulse Pulse Resp BP BP Pulse Ox 05/07/19 12:09 118 H 138/87 05/07/19 12:07 37.5 C 123 H 28 H 138/87 92 05/07/19 08:52 135 H 182/94 H 05/07/19 07:42 37.9 C H 135 H 32 H 182/94 H 96 05/07/19 07:04 115 H 22 91 05/07/19 04:00 37.0 C 131 H 21 150/76 H 91 05/07/19 03:37 143 H 150/76 H 05/07/19 03:20 22 PG Care Time/CCT Total # of Minutes Spent Total Time Spent with Patient: Total time spent is greater than 50% in coordination of care (as documented) at patient's floor/unit and/or counseling patient: Coding Level of Care Code 69364 Subseq Hosp Care Lvl 3 Diagnoses Acute respiratory failure with hypoxia J96.01 Acute on chronic diastolic heart failure I50.33 RSV (respiratory syncytial virus infection) B97.4 Pneumonia J18.9 Laterality: left Lung location: unspecified part of lung Pneumonia type: due to unspecified organism Sepsis A41.9; R65.20; J96.01 Acute respiratory failure type: with hypoxia Sepsis acute organ dysfunction status: with acute organ dysfunction Sepsis type: sepsis due to unspecified organism Severe sepsis acute organ dysfunction type: acute respiratory failure Severe sepsis shock status: without septic shock Toxic metabolic encephalopathy G92 Rapid atrial fibrillation I48.91 Hypertension I10 Hypertension type: unspecified Demand ischemia I24.8 Dementia F03.90 Dementia behavioral disturbance: without behavioral disturbance Dementia type: unspecified type Ileus K56.7 DVT prophylaxis Z29.9 (1) Dementia Dementia behavioral disturbance: without behavioral disturbance Dementia type: unspecified type Qualified Code(s): F03.90 - Unspecified dementia without behavioral disturbance (2) Sepsis Acute respiratory failure type: with hypoxia Sepsis acute organ dysfunction status: with acute organ dysfunction Sepsis type: sepsis due to unspecified organism Severe sepsis acute organ dysfunction type: acute respiratory failure Severe sepsis shock status: without septic shock Qualified Code(s): A41.9 - Sepsis, unspecified organism; R65.20 - Severe sepsis without septic shock; J96.01 - Acute respiratory failure with hypoxia (3) Hypertension Hypertension type: unspecified Qualified Code(s): I10 - Essential (primary) hypertension (4) Pneumonia Laterality: left Lung location: unspecified part of lung Pneumonia type: due to unspecified organism Qualified Code(s): J18.9 - Pneumonia, unspecified organism
--- NOTE | 2019-05-07 15:45 | Electrocardiogram Report ---
Test Reason : Blood Pressure : / mmHG Vent. Rate : 127 BPM Atrial Rate : 138 BPM P-R Int : 000 ms QRS Dur : 078 ms QT Int : 320 ms P-R-T Axes : 000 -15 120 degrees QTc Int : 465 ms Poor data quality, interpretation may be adversely affected Atrial fibrillation with rapid ventricular response Voltage criteria for left ventricular hypertrophy Nonspecific ST and T wave abnormality Abnormal ECG When compared with ECG of 04-MAY-2019 09:53, similar findings Confirmed by Nate Tesfaye ([id number]) on 05/07/2019 3:45:15 PM Referred By: REFERRED SELF Confirmed By:Nate Tesfaye
[2019-05-07] MEDS: DIGOXIN 250 MCG in SYRINGE 9 ML IV SCH ×2 (16:46→23:13)
--- NOTE | 2019-05-07 20:11 | Billing Data ---
Date of Service May 06, 2019 Coding Level of Care Code 75035 Subseq Hosp Care Lvl 3
--- NOTE | 2019-05-07 21:56 | XRay Report ---
XR chest 1V portable HISTORY: 73 years-old Male WOrsening hypoxia acute hypoxia COMPARISON: Chest radiograph 05/07/2019 TECHNIQUE: Portable AP view of the chest FINDINGS: Cardiac silhouette is enlarged. Pulmonary vascular congestion with interstitial coarsening. The patie nt is slightly rotated. Trace pleural effusions. No pneumothorax. Patchy left greater the right bibas ilar densities have slightly improved. Ill-defined opacities of the right midlung redemonstrated. Deg enerative changes of the shoulders and spine. IMPRESSION: 1. Cardiomegaly with mildly decreased pulmonary edema. 2. Patchy multifocal alveolar opacities redemonstrated suggestive of asymmetric pulmonary edema versu s multifocal pneumonia. 3. Trace pleural effusions. ACT 112: Negative or not required by law. The above report was generated using voice recognition software. It may contain grammatical, syntax o r spelling errors. Electronically signed by: Jed Vital M.D. 05/07/2019 9:55 PM
[2019-05-08] MEDS: dilTIAZem HCL 125 MG in DEXTROSE 5% 100 ML IV SCH ×4 (02:16→21:43)
[2019-05-08] MEDS: ALBUT/IPRATROP 3MG/0.5MG NEB 3 ML VIAL NEB SCH ×4 (03:36→15:00)
[2019-05-08] MEDS: METOPROLOL TARTRATE 1 MG/ML VIAL IV SCH ×6 (05:30→23:44)
[2019-05-08] MEDS: CEFEPIME 2,000 MG in SYRINGE 7.5 ML IV SCH ×3 (05:30→21:18)
[2019-05-08 06:16] LABS: Basophils # (auto) 0.05 K/uL (0-0.2); Basophils % (auto) 0.7 %; Eosinophils # (auto) 0.16 K/uL (0-0.5); Eosinophils % (auto) 2.1 %; Hematocrit (blood only) 35.1 % (42-52); Hemoglobin 11.4 g/dL (14.0-18.0); Immature Granulocytes # (auto) 0.02 K/uL (0.00-0.02); Immature Granulocytes % (auto) 0.3 %; Lymphocytes # (auto) 1.69 K/uL (1.2-3.4); Lymphocytes % (auto) 22.5 %; Mean Corpuscular Hemoglobin 29.6 pg (25-34); Mean Corpuscular Hgb Conc 32.5 g/dL (32-36); Mean Corpuscular Volume 91.2 fL (80-100); Mean Platelet Volume 9.7 fL (7.4-10.4); Monocytes # (auto) 0.61 K/uL (0.11-0.59); Monocytes % (auto) 8.1 %; Neutrophils # (auto) 4.97 K/uL (1.4-6.5); Neutrophils % (auto) 66.3 %; Platelet Count 172 K/uL (130-400); RDW Coefficient of Variation 16.8 % (11.5-14.5); RDW Standard Deviation 55.9 fL (36.4-46.3); Red Blood Count 3.85 M/uL (4.7-6.1)
[2019-05-08 06:25] LABS: INR 2.9 (0.9-1.1)
[2019-05-08 06:49] LABS: Albumin Level 2.4 gm/dl (3.4-5.0); BUN Creatinine Ratio 20.3 (10-20); Calcium 8.8 mg/dl (8.5-10.1); Est GFR (African American) 97.2; Est GFR (Non-African American) 83.9; Magnesium 2.1 mg/dl (1.8-2.4); Potassium 3.6 mmol/L (3.5-5.1)
[2019-05-08 06:52] LABS: Albumin Globulin Ratio 0.5 (0.9-2); Bilirubin,Total 1.1 mg/dl (0.2-1); Globulin 4.6 gm/dl (2.5-4.0); Phosphorus 2.2 mg/dl (2.5-4.9)
[2019-05-08] MEDS ORDERED: POTASSIUM PHOS 3 MMOL/1 ML INFUSION IV STA (07:27)
[2019-05-08] MEDS ORDERED: POTASSIUM PHOSPHATE 21 MMOL in SODIUM CHLORIDE 0.9% 500 ML IV ONE (07:45)
[2019-05-08] MEDS: DIGOXIN 250 MCG in SYRINGE 9 ML IV SCH (08:06)
--- NOTE | 2019-05-08 09:13 | Cardiology Progress Note ---
Date of Service May 08, 2019 Subjective Pleasantly demented, breathing better Results & Data Vital Signs (Past 12 Hours) Vital Signs Temp Pulse Pulse Resp BP BP Pulse Ox 05/08/19 07:43 85 05/08/19 07:20 89 18 94 05/08/19 07:16 36.8 C 77 18 104/63 96 05/08/19 05:31 36.7 C 24 98 05/08/19 05:30 94 H 119/67 05/08/19 03:36 88 20 95 05/07/19 23:21 88 20 96 05/07/19 23:13 37.4 C 93 H 93 H 20 139/77 97 05/07/19 21:45 95 05/07/19 21:30 89 L As noted he has dementia HEENT his carotid upstrokes were difficult to assess given his tachycardia Lungs inspiratory and expiratory rhonchi Heart (irregularly irregular) no appreciable murmurs Ext: no Edema Impressions: (1) Sepsis: Secondary to RSV. (2) Rapid atrial fibrillation: He was on a combination of calcium channel blockers (Cardizem cd 240 daily) and beta-blockers (metoprolol 50 BID) as an outpatient. Rates improved with digoxin load; 0.125mg tonight. Hopefully as illness improves his HR's will improve and we can start reducing meds. Will need to wait until abdominal issues improve until switching to PO; d/w hospitalists by phone (3) Dementia: Advanced. (4) Hypertension: Blood pressure is adequate. 5. Report of a negative dobutamine stress echo in 2018 in the outpatient cardiology records at [facility]. At that time his LV function was preserved. 6. History of an LAD stent in approximately 2003
[2019-05-08] MEDS: LEVOFLOXACIN/D5W 750 MG/150 ML BAG IV SCH (12:51)
[2019-05-08] MEDS ORDERED: POLYETHYLENE (MIRALAX) 17 GM PACK PO ONE (15:18)
[2019-05-08] MEDS: DIGOXIN 125 MCG in SYRINGE 9.5 ML IV SCH (17:07)
--- NOTE | 2019-05-08 17:33 | Hospitalist Progress Note ---
Date of Service May 08, 2019 Assessment & Plan (1) Acute respiratory failure with hypoxia: Continue to aim O2 > 90% using oxymask Secondary to RSV infection, suspected bacterial pneumonia and pulmonary edema. (2) Acute on chronic diastolic heart failure: Suspect rate-related pulmonary edema on initial CXR. Appears euvolemic today after lasix given yesterday. Now rate better controlled I suspect this will be less of an issue. (3) RSV (respiratory syncytial virus infection): Supportive management. Droplet precautions. (4) Pneumonia: Multifocal PNA ?Aspiration vs. community acquired. Continue Cefepime + Levaquin (5) Sepsis: Source RSV +/- bacterial PNA. Blood cultures no growth in 24 hours. Urine culture preliminary no growth. Sputum culture pending. If continues to spike temps will need repeat blood cultures (6) Toxic metabolic encephalopathy: Secondary to above infection in setting of dementia. Worse today with pulmonary edema and worse respiratory distress in addition to moving rooms from ICU to PCU. (7) Rapid atrial fibrillation: Appreciate cardiology management with IV diltiazem and metoprolol. Anticoagulation with warfarin; INR currently supratherapeutic, warfarin on hold. Continue digoxin IV 125 mcg daily. Wean diltiazem as able. (8) Hypertension: Stable on diltiazem and metoprolol mainly for rate control. (9) Demand ischemia: Mild elevation in troponin in setting of a. fib with RVR. (10) Dementia: Rivastigmine + memantine as an outpatient. Restart once he is able to take PO meds. (11) Ileus: SBO ruled out with CT A/P Bowel sounds normal, no more nausea or vomiting. Soft diet as per SLT (12) DVT prophylaxis: INR 2.9 Admission and Anticipated Discharge Date Admission Date: May 04, 2019 Subjective Patient appears much more alert today. Recognized I had an accent and asking where I was from. Has little understanding of his disease and acute illness. Smear of BM overnight. Updated his over the phone. Review of Systems Review of Systems: All systems reviewed & are unremarkable except as noted in HPI & below Physical Exam Constitutional: well developed; no acute distress Eyes: + anicteric sclerae; normal pupil size ENMT: external ear and nose normal, oropharynx normal Neck: trachea midline Respiratory: no respiratory distress and no cough Auscultation: + rhonchi (b/l equal throughout, improving air entry b/l); no crackles, no rales and no wheezes Cardiovascular: Rate/Rhythm: + tachycardic and + irregularly irregular Heart Sounds: no murmur Vessels: no JVD Extremities: normal capillary refill; no calf tenderness and no pedal edema Gastrointestinal (Abdomen): Inspection/Auscultation: + abdomen distended (improving) and normal bowel sounds Percussion/Palpation: abdomen soft; abdomen nontender, no guarding and abdomen not rigid Musculoskeletal: no cyanosis or clubbing, extremities motor strength 5/5 Skin: no rashes, warm and dry (no cellulitic changes on exposed skin) Neurologic: moves all extremities, awake and + confused; no focal motor deficits (limited exam due to contraints and congnitive function) Psychiatric: Orientation: alert, oriented to person (self), oriented to place (town) and oriented to time (year) Lymphatic: no cervical or axillary lymphadenopathy Results & Data ([facility]) Vital Signs (Past 12 Hours) Vital Signs Temp Pulse Pulse Pulse Resp BP BP 05/08/19 17:08 89 133/83 05/08/19 17:07 89 05/08/19 15:58 36.7 C 92 H 20 124/81 05/08/19 15:02 84 18 05/08/19 15:00 86 05/08/19 12:52 89 121/73 05/08/19 11:43 36.2 C L 89 18 119/74 05/08/19 11:06 83 18 05/08/19 08:57 93 H 123/75 05/08/19 08:06 101 H 05/08/19 07:43 85 05/08/19 07:20 89 18 05/08/19 07:16 36.8 C 77 18 104/63 Pulse Ox 05/08/19 17:08 05/08/19 17:07 05/08/19 15:58 97 05/08/19 15:02 94 05/08/19 15:00 05/08/19 12:52 05/08/19 11:43 97 05/08/19 11:06 93 05/08/19 08:57 05/08/19 08:06 05/08/19 07:43 05/08/19 07:20 94 05/08/19 07:16 96 PG Care Time/CCT Total # of Minutes Spent Total Time Spent with Patient: Total time spent is greater than 50% in coordination of care (as documented) at patient's floor/unit and/or counseling patient: Coding Level of Care Code 74054 Subseq Hosp Care Lvl 3 Diagnoses Acute respiratory failure with hypoxia J96.01 Acute on chronic diastolic heart failure I50.33 RSV (respiratory syncytial virus infection) B97.4 Pneumonia J18.9 Laterality: left Lung location: unspecified part of lung Pneumonia type: due to unspecified organism Sepsis A41.9; R65.20; J96.01 Acute respiratory failure type: with hypoxia Sepsis acute organ dysfunction status: with acute organ dysfunction Sepsis type: sepsis due to unspecified organism Severe sepsis acute organ dysfunction type: acute respiratory failure Severe sepsis shock status: without septic shock Toxic metabolic encephalopathy G92 Rapid atrial fibrillation I48.91 Hypertension I10 Hypertension type: unspecified Demand ischemia I24.8 Dementia F03.90 Dementia behavioral disturbance: without behavioral disturbance Dementia type: unspecified type Ileus K56.7 DVT prophylaxis Z29.9 (1) Dementia Dementia behavioral disturbance: without behavioral disturbance Dementia type: unspecified type Qualified Code(s): F03.90 - Unspecified dementia without behavioral disturbance (2) Sepsis Acute respiratory failure type: with hypoxia Sepsis acute organ dysfunction status: with acute organ dysfunction Sepsis type: sepsis due to unspecified organism Severe sepsis acute organ dysfunction type: acute respiratory failure Severe sepsis shock status: without septic shock Qualified Code(s): A41.9 - Sepsis, unspecified organism; R65.20 - Severe sepsis without septic shock; J96.01 - Acute respiratory failure with hypoxia (3) Hypertension Hypertension type: unspecified Qualified Code(s): I10 - Essential (primary) hypertension (4) Pneumonia Laterality: left Lung location: unspecified part of lung Pneumonia type: due to unspecified organism Qualified Code(s): J18.9 - Pneumonia, unspecified organism
[2019-05-08] MEDS: POLYETHYLENE (MIRALAX) 17 GM PACK PO SCH (21:18)
[2019-05-09] MEDS: dilTIAZem HCL 125 MG in DEXTROSE 5% 100 ML IV SCH ×4 (03:44→19:18)
[2019-05-09] MEDS: METOPROLOL TARTRATE 1 MG/ML VIAL IV SCH ×6 (04:15→23:31)
[2019-05-09] MEDS: CEFEPIME 2,000 MG in SYRINGE 7.5 ML IV SCH ×3 (04:16→19:59)
[2019-05-09 06:45] LABS: Prothrombin Time 29.9 Seconds (9.0-12.0)
[2019-05-09 07:15] LABS: BUN Creatinine Ratio 25.9 (10-20); Calcium 8.9 mg/dl (8.5-10.1); Est GFR (African American) 106.2; Est GFR (Non-African American) 91.6; Phosphorus 2.6 mg/dl (2.5-4.9); Potassium 4.1 mmol/L (3.5-5.1)
--- NOTE | 2019-05-09 09:36 | Cardiology Progress Note ---
Date of Service May 09, 2019 Subjective He is pleasantly demented. He still having a mild degree of respiratory distress. Results & Data Vital Signs (Past 12 Hours) Vital Signs Temp Pulse Pulse Resp BP Pulse Ox 05/09/19 07:16 37.3 C 95 H 20 159/84 H 92 05/09/19 03:40 37.5 C 92 H 20 129/74 96 05/08/19 23:16 37.3 C 103 H 24 144/79 H 93 05/08/19 23:00 102 H As noted he has dementia HEENT his carotid upstrokes were difficult to assess given his tachycardia Lungs inspiratory and expiratory rhonchi Heart (irregularly irregular) no appreciable murmurs Ext: no Edema Impressions: (1) Sepsis: Secondary to RSV. (2) Rapid atrial fibrillation: He was on a combination of calcium channel blockers (Cardizem cd 240 daily) and beta-blockers (metoprolol 50 BID) as an outpatient. Rates improved with digoxin load; 0.125mg daily. His rates are much improved. I did discuss with the nursing staff to start reducing his diltiazem drip as his heart rate allows. Once he is taking p.o. we can try to start switching his meds over. His above outpatient medical regiment is noted. At this point I would maintain diltiazem beta-blockers and digoxin. His creatinine is stable. His INR remains greater than 2 currently. Again hopefully his rates will improve as his underlying lung disease improves. (3) Dementia: Advanced. (4) Hypertension: Blood pressure is adequate. 5. Report of a negative dobutamine stress echo in 2018 in the outpatient cardiology records at [facility]. At that time his LV function was preserved. 6. History of an LAD stent in approximately 2003
[2019-05-09] MEDS: LEVOFLOXACIN/D5W 750 MG/150 ML BAG IV SCH (12:31)
--- NOTE | 2019-05-09 13:32 | XRay Report ---
XR KUB/Abdomen 1 view CLINICAL HISTORY: Abdominal distension ?ileus/SBO/fecal impaction COMPARISON STUDY: 05/06/2019 FINDINGS: 3 supine views are provided for interpretation. There is mild gastric distention. There is mild gaseous prominence of the transverse colon. There are no findings to indicate small bowel obstru ction. IMPRESSION: 1. Gaseous prominence of the stomach 2. Mild gaseous prominence of transverse colon. 3. No evidence of fecal impaction. No evidence of small bowel obstruction. ACT 112: Negative or not required by law. Electronically signed by: Rayshawn Jones M.D. 05/09/2019 1:31 PM
[2019-05-09] MEDS: ALBUT/IPRATROP 3MG/0.5MG NEB 3 ML VIAL NEB SCH ×2 (15:35→19:19)
[2019-05-09] MEDS: DIGOXIN 125 MCG in SYRINGE 9.5 ML IV SCH (17:27)
[2019-05-09] MEDS: SIMETHICONE 80 MG CHEW PO SCH ×2 (17:28→22:59)
[2019-05-09] MEDS: FAMOTIDINE 20 MG in SYRINGE 3 ML IV SCH (19:09)
[2019-05-10] MEDS: METOPROLOL TARTRATE 1 MG/ML VIAL IV SCH ×6 (04:46→23:03)
[2019-05-10] MEDS: CEFEPIME 2,000 MG in SYRINGE 7.5 ML IV SCH (04:47)
[2019-05-10] MEDS: SIMETHICONE 80 MG CHEW PO SCH ×4 (04:47→19:56)
[2019-05-10] MEDS: dilTIAZem HCL 125 MG in DEXTROSE 5% 100 ML IV SCH ×3 (06:46→23:34)
[2019-05-10 07:01] LABS: INR 3.3 (0.9-1.1); Prothrombin Time 32.3 Seconds (9.0-12.0)
[2019-05-10 07:19] LABS: BUN Creatinine Ratio 25.6 (10-20); Creatinine Clr Calc Pharmacy 79.7 ml/min; Est GFR (African American) 93.5; Est GFR (Non-African American) 80.7; Potassium 3.8 mmol/L (3.5-5.1)
[2019-05-10 07:20] LABS: Phosphorus 2.6 mg/dl (2.5-4.9)
[2019-05-10] MEDS: ALBUT/IPRATROP 3MG/0.5MG NEB 3 ML VIAL NEB SCH ×4 (07:26→19:21)
--- NOTE | 2019-05-10 08:59 | Hospitalist Progress Note ---
Date of Service May 09, 2019 Assessment & Plan (1) Acute respiratory failure with hypoxia: Continue to aim O2 > 90% using oxymask Secondary to RSV infection, suspected bacterial pneumonia and pulmonary edema. (2) Acute on chronic diastolic heart failure: Suspect rate-related pulmonary edema on initial CXR. Remains euvolemic on exam. Now rate better controlled I suspect this will be less of an issue. (3) RSV (respiratory syncytial virus infection): Supportive management. Droplet precautions. (4) Pneumonia: Multifocal PNA ?Aspiration vs. community acquired. Continue Cefepime + Levaquin Had planned to de-escalate antibiotics however given recurrent ileus will continue double coverage for now. (5) Sepsis: No longer septic. Source RSV +/- bacterial PNA. Blood cultures no growth to date. Urine culture no growth. Sputum culture moderate normal gemma. (6) Toxic metabolic encephalopathy: Secondary to above infection in setting of dementia. Suspect now back to baseline but difficult to assess without family able to visit. (7) Rapid atrial fibrillation: Appreciate cardiology management with IV diltiazem, metoprolol and diltiazem. Anticoagulation with warfarin; INR currently supratherapeutic, warfarin on hold. Wean diltiazem as able as likely contributing towards constipation. (8) Hypertension: Stable on diltiazem and metoprolol mainly for rate control. (9) Demand ischemia: Mild elevation in troponin in setting of a. fib with RVR. (10) Dementia: Rivastigmine + memantine as an outpatient. Restart once he is able to take PO meds. (11) Ileus: SBO ruled out with CT A/P More distension and lack of bowel sounds today with associated nausea. KUB - large gastric bubble. Start on simethicone and IV famotidine. Continue to wean diltiazem as likely contributing. Switched to clear liquid diet (12) DVT prophylaxis: INR 3.0 Admission and Anticipated Discharge Date Admission Date: May 04, 2019 Subjective Nausea this morning and a lot of belching present. Not resolving with ondansetron. Patient reports feeling well. Still significantly short of breath but slowly improving. Review of Systems Review of Systems: All systems reviewed & are unremarkable except as noted in HPI & below Physical Exam Constitutional: well developed; no acute distress Eyes: + anicteric sclerae; normal pupil size ENMT: external ear and nose normal, oropharynx normal Neck: trachea midline Respiratory: normal respiratory effort; no respiratory distress and no cough Auscultation: + rhonchi (b/l equal throughout, improving air entry b/l); no crackles, no rales and no wheezes Cardiovascular: Rate/Rhythm: + tachycardic and + irregularly irregular Heart Sounds: no murmur Vessels: no JVD Extremities: normal capillary refill; no calf tenderness and no pedal edema Gastrointestinal (Abdomen): Inspection/Auscultation: + abdomen distended (increased from yesterday) and + hypoactive bowel sounds (very scant) Percussion/Palpation: abdomen soft; abdomen nontender, no guarding and abdomen not rigid Musculoskeletal: no cyanosis or clubbing, extremities motor strength 5/5 Skin: no rashes, warm and dry (no cellulitic changes on exposed skin) Neurologic: moves all extremities, awake and + confused (baseline dementia) Psychiatric: Orientation: alert, oriented to person (self) and oriented to [place] (town); + not oriented to time Results & Data ([facility]) Vital Signs (Past 12 Hours) Vital Signs Temp Pulse Pulse Resp BP BP Pulse Ox 05/10/19 08:19 93 H 160/83 H 05/10/19 07:26 93 H 18 94 05/10/19 07:14 36.8 C 84 20 157/91 H 90 05/10/19 04:39 36.8 C 107 H 20 134/75 90 05/09/19 23:31 36.8 C 101 H 20 137/72 94 05/09/19 23:00 83 PG Care Time/CCT Total # of Minutes Spent Total Time Spent with Patient: Total time spent is greater than 50% in coordination of care (as documented) at patient's floor/unit and/or counseling patient: Coding Level of Care Code 78563 Subseq Hosp Care Lvl 2 Diagnoses Acute respiratory failure with hypoxia J96.01 Acute on chronic diastolic heart failure I50.33 RSV (respiratory syncytial virus infection) B97.4 Pneumonia J18.9 Pneumonia type: due to unspecified organism Laterality: left Lung location: unspecified part of lung Sepsis A41.9; R65.20; J96.01 Sepsis type: sepsis due to unspecified organism Sepsis acute organ dysfunction status: with acute organ dysfunction Severe sepsis acute organ dysfunction type: acute respiratory failure Acute respiratory failure type: with hypoxia Severe sepsis shock status: without septic shock Toxic metabolic encephalopathy G92 Rapid atrial fibrillation I48.91 Hypertension I10 Hypertension type: unspecified Demand ischemia I24.8 Dementia F03.90 Dementia behavioral disturbance: without behavioral disturbance Dementia type: unspecified type Ileus K56.7 DVT prophylaxis Z29.9 (1) Pneumonia Pneumonia type: due to unspecified organism Laterality: left Lung location: unspecified part of lung Qualified Code(s): J18.9 - Pneumonia, unspecified organism (2) Sepsis Sepsis type: sepsis due to unspecified organism Sepsis acute organ dysfunction status: with acute organ dysfunction Severe sepsis acute organ dysfunction type: acute respiratory failure Acute respiratory failure type: with hypoxia Severe sepsis shock status: without septic shock Qualified Code(s): A41.9 - Sepsis, unspecified organism; R65.20 - Severe sepsis without septic shock; J96.01 - Acute respiratory failure with hypoxia (3) Hypertension Hypertension type: unspecified Qualified Code(s): I10 - Essential (primary) hypertension (4) Dementia Dementia behavioral disturbance: without behavioral disturbance Dementia type: unspecified type Qualified Code(s): F03.90 - Unspecified dementia without behavioral disturbance
--- NOTE | 2019-05-10 09:55 | XRay Report ---
XR chest 1V portable HISTORY: hypoxia, shortness of breath COMPARISON: Chest 05/07/2019. FINDINGS: Improved aeration within the lungs. Heart remains enlarged. No pleural effusions. No pneumo thorax IMPRESSION: Near complete resolution of the bilateral airspace opacities. ACT 112: Negative or not required by law. Electronically signed by: Terrence Huizar M.D. 05/10/2019 9:54 AM
[2019-05-10] MEDS: AMOXICILLIN/CLAVULANATE 875 MG TAB PO SCH (16:44)
[2019-05-10] MEDS: DIGOXIN 125 MCG in SYRINGE 9.5 ML IV SCH (16:47)
--- NOTE | 2019-05-10 19:58 | Hospitalist Progress Note ---
Date of Service May 10, 2019 Assessment & Plan (1) Acute respiratory failure with hypoxia: Continue to aim O2 > 90% using oxymask Secondary to RSV infection, suspected bacterial pneumonia and pulmonary edema. (2) Acute on chronic diastolic heart failure: Suspect rate-related pulmonary edema on initial CXR. Remains euvolemic on exam. Now rate better controlled I suspect this will be less of an issue. (3) RSV (respiratory syncytial virus infection): Supportive management. Droplet precautions. (4) Pneumonia: Multifocal PNA ?Aspiration vs. community acquired. Switch to PO Augmentin BID for 5 additional days, he has already had significant atypical coverage with Levaquin and do not feel he needs extra at this stage. (5) Sepsis: No longer septic. Source RSV +/- bacterial PNA. Blood cultures no growth to date. Urine culture no growth. Sputum culture moderate normal gemma. (6) Toxic metabolic encephalopathy: Secondary to above infection in setting of dementia. Suspect now back to baseline but difficult to assess without family able to visit. Will now need PT/OT ordered to regain strength. (7) Rapid atrial fibrillation: Given good rate control at present will not switch to oral medications until ileus has sustained improvement Continue IV diltiazem, metoprolol and digoxin Anticoagulation with warfarin; INR currently supratherapeutic, suspect this will start coming down now off Levaquin. Wean diltiazem as able as likely contributing towards constipation aim HR < 115, only turn back up if sustained above this level for > 15 minutes (8) Hypertension: Stable on diltiazem and metoprolol mainly for rate control. (9) Demand ischemia: Mild elevation in troponin in setting of a. fib with RVR. (10) Dementia: Rivastigmine + memantine as an outpatient. Restart rivastigmine as may help with ileus. (11) Ileus: SBO ruled out with CT A/P Similar distension. Doing well on clear liquid diet. Will restart rivastigmine above. KUB - large gastric bubble. Start on simethicone and IV famotidine. Continue to wean diltiazem as likely contributing. (12) DVT prophylaxis: INR 3.1 Admission and Anticipated Discharge Date Admission Date: May 04, 2019 Subjective No abdominal pain, nausea, vomiting. No significant BM yet. No change in shortness of breath. Still having rattling at the back of his throat. Doing well with clear liquid diet. Review of Systems Review of Systems: All systems reviewed & are unremarkable except as noted in HPI & below Physical Exam Constitutional: well developed; no acute distress Eyes: + anicteric sclerae; normal pupil size ENMT: external ear and nose normal, oropharynx normal Neck: trachea midline Respiratory: normal respiratory effort; no respiratory distress and no cough Auscultation: + rhonchi (b/l equal throughout, improving air entry b/l); no crackles, no rales and no wheezes Cardiovascular: Rate/Rhythm: + tachycardic and + irregularly irregular Heart Sounds: no murmur Vessels: no JVD Extremities: normal capillary refill; no calf tenderness and no pedal edema Gastrointestinal (Abdomen): Inspection/Auscultation: + abdomen distended (similar to yesterday) and + hypoactive bowel sounds (very scant) Percussion/Palpation: abdomen soft; abdomen nontender, no guarding and abdomen not rigid Skin: no rashes, warm and dry (no cellulitic changes on exposed skin) Neurologic: PERRL, EOMI, accommodation nl, no face palsy, no dysarthria moves all extremities, awake and + confused (baseline dementia) Psychiatric: Orientation: alert Results & Data ([facility]) Vital Signs (Past 12 Hours) Vital Signs Temp Pulse Pulse Resp BP BP Pulse Ox 05/10/19 15:13 91 H 18 91 05/10/19 11:30 36.5 C 95 H 22 133/78 94 05/10/19 11:28 92 H 18 94 05/10/19 08:19 93 H 160/83 H 05/10/19 07:26 93 H 18 94 05/10/19 07:14 36.8 C 84 20 157/91 H 90 05/10/19 07:00 91 H 05/10/19 04:39 36.8 C 107 H 20 134/75 90 PG Care Time/CCT Total # of Minutes Spent Total Time Spent with Patient: Total time spent is greater than 50% in coordination of care (as documented) at patient's floor/unit and/or counseling patient: Coding Level of Care Code 17178 Subseq Hosp Care Lvl 2 Diagnoses Acute respiratory failure with hypoxia J96.01 Acute on chronic diastolic heart failure I50.33 RSV (respiratory syncytial virus infection) B97.4 Pneumonia J18.9 Pneumonia type: due to unspecified organism Laterality: left Lung location: unspecified part of lung Sepsis A41.9; R65.20; J96.01 Sepsis type: sepsis due to unspecified organism Sepsis acute organ dysfunction status: with acute organ dysfunction Severe sepsis acute organ dysfunction type: acute respiratory failure Acute respiratory failure type: with hypoxia Severe sepsis shock status: without septic shock Toxic metabolic encephalopathy G92 Rapid atrial fibrillation I48.91 Hypertension I10 Hypertension type: unspecified Demand ischemia I24.8 Dementia F03.90 Dementia behavioral disturbance: without behavioral disturbance Dementia type: unspecified type Ileus K56.7 DVT prophylaxis Z29.9 (1) Pneumonia Pneumonia type: due to unspecified organism Laterality: left Lung location: unspecified part of lung Qualified Code(s): J18.9 - Pneumonia, unspecified organism (2) Sepsis Sepsis type: sepsis due to unspecified organism Sepsis acute organ dysfunction status: with acute organ dysfunction Severe sepsis acute organ dysfunction type: acute respiratory failure Acute respiratory failure type: with hypoxia Severe sepsis shock status: without septic shock Qualified Code (s): A41.9 - Sepsis, unspecified organism; R65.20 - Severe sepsis without septic shock; J96.01 - Acute respiratory failure with hypoxia (3) Hypertension Hypertension type: unspecified Qualified Code(s): I10 - Essential (primary) hypertension (4) Dementia Dementia behavioral disturbance: without behavioral disturbance Dementia type: unspecified type Qualified Code(s): F03.90 - Unspecified dementia without behavioral disturbance
[2019-05-10] MEDS: FAMOTIDINE 20 MG in SYRINGE 3 ML IV SCH (21:15)
[2019-05-10] MEDS: TAMSULOSIN HCL 0.4 MG CAP PO SCH (21:15)
[2019-05-10] MEDS: POLYETHYLENE (MIRALAX) 17 GM PACK PO SCH (21:15)
[2019-05-11] MEDS: METOPROLOL TARTRATE 1 MG/ML VIAL IV SCH ×6 (03:35→23:25)
[2019-05-11] MEDS: SIMETHICONE 80 MG CHEW PO SCH ×4 (03:36→19:43)
[2019-05-11 06:11] LABS: Eosinophils # (auto) 0.41 K/uL (0-0.5); Hematocrit (blood only) 37.9 % (42-52); Immature Granulocytes # (auto) 0.06 K/uL (0.00-0.02); Immature Granulocytes % (auto) 0.6 %; Lymphocytes # (auto) 1.88 K/uL (1.2-3.4); Lymphocytes % (auto) 18.1 %; Mean Corpuscular Hemoglobin 29.3 pg (25-34); Mean Corpuscular Hgb Conc 31.7 g/dL (32-36); Mean Corpuscular Volume 92.4 fL (80-100); Mean Platelet Volume 9.5 fL (7.4-10.4); Monocytes # (auto) 0.75 K/uL (0.11-0.59); Monocytes % (auto) 7.2 %; Neutrophils # (auto) 7.16 K/uL (1.4-6.5); Neutrophils % (auto) 69.1 %; Platelet Count 255 K/uL (130-400); RDW Coefficient of Variation 16.6 % (11.5-14.5); RDW Standard Deviation 55.7 fL (36.4-46.3); White Blood Count 10.36 K/uL (4.8-10.8)
[2019-05-11 06:55] LABS: Albumin Level 2.7 gm/dl (3.4-5.0); BUN Creatinine Ratio 22.6 (10-20); Creatinine Clr Calc Pharmacy 78.9 ml/min; Est GFR (African American) 92.3; Est GFR (Non-African American) 79.7; Potassium 3.5 mmol/L (3.5-5.1)
[2019-05-11 06:57] LABS: Albumin Globulin Ratio 0.5 (0.9-2); Bilirubin,Total 1.1 mg/dl (0.2-1); Globulin 5.1 gm/dl (2.5-4.0); Total Protein 7.8 gm/dl (6.4-8.2)
[2019-05-11] MEDS: ALBUT/IPRATROP 3MG/0.5MG NEB 3 ML VIAL NEB SCH ×4 (07:13→19:26)
[2019-05-11] MEDS: dilTIAZem HCL 125 MG in DEXTROSE 5% 100 ML IV SCH ×2 (08:22→17:07)
[2019-05-11] MEDS: AMOXICILLIN/CLAVULANATE 875 MG TAB PO SCH ×2 (08:29→17:17)
[2019-05-11] MEDS: ASPIRIN 81 MG ECTAB PO SCH (08:30)
[2019-05-11] MEDS ORDERED: LAVAGE SOLUTION 4000ML PO ONE (08:30)
[2019-05-11] MEDS: RIVASTIGMINE TARTRATE 1.5 MG CAP PO SCH (08:31)
[2019-05-11] MEDS: FUROSEMIDE 20 MG TAB PO SCH (08:31)
[2019-05-11] MEDS ORDERED: GLYCERIN ADULT 12 SUPP/BOX SUPP PR ONE (13:29)
[2019-05-11] MEDS ORDERED: bisacodyL 10 MG SUPP PR ONE (15:00)
[2019-05-11] MEDS: DIGOXIN 125 MCG in SYRINGE 9.5 ML IV SCH (16:15)
[2019-05-11] MEDS: FAMOTIDINE 20 MG in SYRINGE 3 ML IV SCH (18:59)
[2019-05-11] MEDS: POLYETHYLENE (MIRALAX) 17 GM PACK PO SCH (19:42)
[2019-05-11] MEDS: TAMSULOSIN HCL 0.4 MG CAP PO SCH (19:44)
[2019-05-12] MEDS: SIMETHICONE 80 MG CHEW PO SCH ×4 (04:27→21:43)
[2019-05-12] MEDS: METOPROLOL TARTRATE 1 MG/ML VIAL IV SCH ×5 (04:28→21:41)
--- NOTE | 2019-05-12 06:49 | Hospitalist Progress Note ---
Date of Service May 11, 2019 Assessment & Plan (1) Acute respiratory failure with hypoxia: Now resolved on room air Secondary to RSV infection, suspected bacterial pneumonia and pulmonary edema. (2) Acute on chronic diastolic heart failure: Suspect rate-related pulmonary edema on initial CXR. Remains euvolemic on exam. Now rate better controlled I suspect this will be less of an issue. No further lasix required currently, in fact concern now is more for patient keeping up with required oral intake (3) RSV (respiratory syncytial virus infection): Supportive management. Droplet precautions. (4) Pneumonia: Multifocal PNA ?Aspiration vs. community acquired. Switched to PO Augmentin BID for 5 additional days 05/09, he has already had significant atypical coverage with Levaquin (5) Sepsis: No longer septic. Source RSV +/- bacterial PNA. Blood cultures no growth to date. Urine culture no growth. Sputum culture moderate normal gemma. (6) Toxic metabolic encephalopathy: Secondary to above infection in setting of dementia. Suspect now back to baseline but difficult to assess without family able to visit. Will now need PT/OT ordered to regain strength. (7) Rapid atrial fibrillation: Given good rate control at present will not switch to oral medications until ileus has sustained improvement Continue IV diltiazem, metoprolol and digoxin Anticoagulation with warfarin; INR currently supratherapeutic, suspect this will start coming down now off Levaquin. Possible vitamin K deficiency if continues to rise as warfarin has been held since admission. Possibly would do better on DOAC given Alzhiemers and inconsistent diet. Wean diltiazem as able as likely contributing towards constipation aim HR < 115, only turn back up if sustained above this level for > 15 minutes (8) Hypertension: Stable on diltiazem and metoprolol mainly for rate control. (9) Demand ischemia: Mild elevation in troponin in setting of a. fib with RVR. (10) Dementia: Rivastigmine + memantine as an outpatient. Restarted rivastigmine as may help with ileus. (11) Ileus: SBO ruled out with CT A/P Similar distension. Restarted rivastigmine above today. Continue on simethicone and IV famotidine. Continue to wean diltiazem as likely contributing. Trial Golytely although patient was unable to tolerate much of this. Will give glycerin supp. followed by Bisacodyl supp. (12) Physical deconditioning: Continue PT/OT. Patient's reports wish to go home from hospital if possible. (13) DVT prophylaxis: INR 3.3. Held warfarin since admission. Possible vitamin K deficiency if continues to rise. Admission and Anticipated Discharge Date Admission Date: May 04, 2019 Subjective No abdominal pain, nausea, vomiting. No significant BM yet. Doing well on full liquid diet. No change in shortness of breath. Still having rattling at the back of his throat. He appears to be in good spirits. Updated his over the phone. All questions and concerns answered at this time. She expressed a wish for him not to go to rehab if possible as on a previous occasion he did go to [facility] and it was not a good experience. Review of Systems Review of Systems: All systems reviewed & are unremarkable except as noted in HPI & below Physical Exam Constitutional: well developed; no acute distress Eyes: + anicteric sclerae; normal pupil size ENMT: external ear and nose normal, oropharynx normal Mouth: + dry oral mucous membranes Neck: trachea midline Respiratory: normal respiratory effort; no respiratory distress and no cough Auscultation: + rhonchi (b/l equal throughout, improving air entry daily b/l); no crackles, no rales and no wheezes Cardiovascular: Rate/Rhythm: regular rate and + irregularly irregular Heart Sounds: no murmur Vessels: no JVD Extremities: normal capillary refill; no calf tenderness and no pedal edema Gastrointestinal (Abdomen): Inspection/Auscultation: + abdomen distended (similar to yesterday) and normal bowel sounds Percussion/Palpation: abdomen soft; abdomen nontender, no guarding and abdomen not rigid Musculoskeletal: no cyanosis or clubbing, extremities motor strength 5/5 Skin: no rashes, warm and dry (no cellulitic changes on exposed skin) Neurologic: moves all extremities, awake and + confused (baseline dementia) Psychiatric: Orientation: alert and oriented to person; + not oriented to place and + not oriented to time Lymphatic: no cervical or axillary lymphadenopathy Results & Data ([facility]) Vital Signs (Past 12 Hours) Vital Signs Temp Pulse Pulse Resp BP Pulse Ox 05/12/19 04:26 36.5 C 93 H 19 140/86 94 05/11/19 23:24 37.6 C H 110 H 19 135/78 93 05/11/19 23:00 102 H 05/11/19 19:28 93 H 18 95 05/11/19 19:09 37.1 C 82 17 131/78 93 PG Care Time/CCT Total # of Minutes Spent Total Time Spent with Patient: Total time spent is greater than 50% in coor dination of care (as documented) at patient's floor/unit and/or counseling patient: Coding Level of Care Code 66730 Subseq Hosp Care Lvl 2 Diagnoses Acute respiratory failure with hypoxia J96.01 Acute on chronic diastolic heart failure I50.33 RSV (respiratory syncytial virus infection) B97.4 Pneumonia J18.9 Pneumonia type: due to unspecified organism Laterality: left Lung location: unspecified part of lung Sepsis A41.9; R65.20; J96.01 Sepsis type: sepsis due to unspecified organism Sepsis acute organ dysfunction status: with acute organ dysfunction Severe sepsis acute organ dysfunction type: acute respiratory failure Acute respiratory failure type: with hypoxia Severe sepsis shock status: without septic shock Toxic metabolic encephalopathy G92 Rapid atrial fibrillation I48.91 Hypertension I10 Hypertension type: unspecified Demand ischemia I24.8 Dementia F03.90 Dementia behavioral disturbance: without behavioral disturbance Dementia type: unspecified type Ileus K56.7 Physical deconditioning R53.81 DVT prophylaxis Z29.9 (1) Pneumonia Pneumonia type: due to unspecified organism Laterality: left Lung location: unspecified part of lung Qualified Code(s): J18.9 - Pneumonia, unspecified organism (2) Sepsis Sepsis type: sepsis due to unspecified organism Sepsis acute organ dysfunction status: with acute organ dysfunction Severe sepsis acute organ dysfunction type: acute respiratory failure Acute respiratory failure type: with hypoxia Severe sepsis shock status: without septic shock Qualified Code(s): A41.9 - Sepsis, unspecified organism; R65.20 - Severe sepsis without septic shock; J96.01 - Acute respiratory failure with hypoxia (3) Hypertension Hypertension type: unspecified Qualified Code(s): I10 - Essential (primary) hypertension (4) Dementia Dementia behavioral disturbance: without behavioral disturbance Dementia type: unspecified type Qualified Code(s): F03.90 - Unspecified dementia without behavioral disturbance
[2019-05-12 07:14] LABS: INR 2.6 (0.9-1.1); Prothrombin Time 26.1 Seconds (9.0-12.0)
[2019-05-12] MEDS: ALBUT/IPRATROP 3MG/0.5MG NEB 3 ML VIAL NEB SCH ×4 (07:17→19:02)
[2019-05-12 07:26] LABS: BUN Creatinine Ratio 21.7 (10-20); Calcium 8.8 mg/dl (8.5-10.1); Creatinine Clr Calc Pharmacy 76.3 ml/min; Est GFR (African American) 88.9; Est GFR (Non-African American) 76.7; Potassium 3.5 mmol/L (3.5-5.1)
[2019-05-12] MEDS: RIVASTIGMINE TARTRATE 1.5 MG CAP PO SCH (08:22)
[2019-05-12] MEDS: FUROSEMIDE 20 MG TAB PO SCH (08:22)
[2019-05-12] MEDS: AMOXICILLIN/CLAVULANATE 875 MG TAB PO SCH ×2 (08:22→17:49)
[2019-05-12] MEDS: ASPIRIN 81 MG ECTAB PO SCH (08:23)
[2019-05-12] MEDS: FAMOTIDINE 20 MG in SYRINGE 3 ML IV SCH (17:48)
[2019-05-12] MEDS: DIGOXIN 125 MCG in SYRINGE 9.5 ML IV SCH (17:49)
[2019-05-12] MEDS: dilTIAZem HCL 125 MG in DEXTROSE 5% 100 ML IV SCH (18:41)
[2019-05-12] MEDS: POLYETHYLENE (MIRALAX) 17 GM PACK PO SCH (21:43)
[2019-05-12] MEDS: TAMSULOSIN HCL 0.4 MG CAP PO SCH (21:44)
--- NOTE | 2019-05-12 22:56 | Hospitalist Progress Note ---
Date of Service May 12, 2019 Assessment & Plan (1) Acute respiratory failure with hypoxia: Now resolved on room air Secondary to RSV infection, suspected bacterial pneumonia and pulmonary edema. (2) Acute on chronic diastolic heart failure: Suspect rate-related pulmonary edema on initial CXR. Remains euvolemic on exam. Rate appears to be somewhat elevated. will continue to monitor. On diltiazem for rate controlled. No further lasix required currently, in fact concern now is more for patient keeping up with required oral intake. (3) RSV (respiratory syncytial virus infection): Supportive management. Droplet precautions. (4) Pneumonia: Multifocal PNA ?Aspiration vs. community acquired. Switched to PO Augmentin BID for 5 additional days 05/09, he has already had significant atypical coverage with Levaquin (5) Sepsis: No longer septic. Source RSV +/- bacterial PNA. Blood cultures no growth to date. Urine culture no growth. Sputum culture moderate normal gemma. (6) Toxic metabolic encephalopathy: Secondary to above infection in setting of dementia. Suspect now back to baseline but difficult to assess without family able to visit. Will now need PT/OT ordered to regain strength. (7) Rapid atrial fibrillation: Given good rate control at present will not switch to oral medications until ileus has sustained improvement Continue IV diltiazem, metoprolol and digoxin Anticoagulation with warfarin; INR currently supratherapeutic, suspect this will start coming down now off Levaquin. Possible vitamin K deficiency if continues to rise as warfarin has been held since admission. Possibly would do better on DOAC given Alzhiemers and inconsistent diet. Wean diltiazem as able as likely contributing towards constipation aim HR < 115, only turn back up if sustained above this level for > 15 minutes (8) Hypertension: Stable on diltiazem and metoprolol mainly for rate control. (9) Demand ischemia: Mild elevation in troponin in setting of a. fib with RVR. (10) Dementia: Rivastigmine + memantine as an outpatient. Restarted rivastigmine as may help with ileus. (11) Ileus: SBO ruled out with CT A/P Similar distension. Restarted rivastigmine above today. Continue on simethicone and IV famotidine. Continue to wean diltiazem as likely contributing. Trial Golytely although patient was unable to tolerate much of this. Will give glycerin supp. followed by Bisacodyl supp. (12) Physical deconditioning: Continue PT/OT. Patient's reports wish to go home from hospital if possible. (13) DVT prophylaxis: INR at goal. will monitor. Held warfarin since admission. Possible vitamin K deficiency if continues to rise. Admission and Anticipated Discharge Date Admission Date: May 04, 2019 Subjective Patient is a poor historian. Reports no new symptoms. Review of Systems Review of Systems: Unobtainable due to cognitive status Physical Exam Physical Exam: Constitutional: well developed; no acute distress Eyes: + anicteric sclerae; normal pupil size ENMT: external ear and nose normal, oropharynx normal Mouth: + dry oral mucous membranes Neck: trachea midline Respiratory: normal respiratory effort; no respiratory distress and no cough Auscultation: + rhonchi (b/l equal throughout,); no crackles, no rales and no wheezes Cardiovascular: Rate/Rhythm: regular rate and + irregularly irregular Heart Sounds: no murmur Vessels: no JVD Extremities: normal capillary refill; no calf tenderness and no pedal edema Gastrointestinal (Abdomen): Inspection/Auscultation: + abdomen distended (similar to yesterday) and normal bowel sounds Percussion/Palpation: abdomen soft; abdomen nontender, no guarding and abdomen not rigid Musculoskeletal: no cyanosis or clubbing, extremities motor strength 5/5 Skin: no rashes, warm and dry (no cellulitic changes on exposed skin) Neurologic: moves all extremities, awake and + confused (baseline dementia) Psychiatric: Orientation: alert and oriented to person; + not oriented to place and + not oriented to time Lymphatic: no cervical or axillary lymphadenopathy Results & Data ([facility]) Vital Signs (Past 12 Hours) Vital Signs Pulse Pulse Pulse Resp BP Pulse Ox 05/12/19 21:41 115 H 130/85 05/12/19 19:02 96 H 18 93 05/12/19 17:49 113 H 05/12/19 17:48 113 H 158/80 H 05/12/19 15:24 58 L 18 90 05/12/19 12:18 120 H 154/82 H 05/12/19 11:10 99 H 18 92 PG Care Time/CCT Total # of Minutes Spent Total Time Spent with Patient: Total time spent is greater than 50% in coordination of care (as documented) at patient's floor/unit and/or counseling patient: Coding Level of Care Code 20887 Subseq Hosp Care Lvl 3 Diagnoses Acute respiratory failure with hypoxia J96.01 Acute on chronic diastolic heart failure I50.33 RSV (respiratory syncytial virus infection) B97.4 Pneumonia J18.9 Laterality: left Lung location: unspecified part of lung Pneumonia type: due to unspecified organism Sepsis A41.9; R65.20; J96.01 Acute respiratory failure type: with hypoxia Sepsis acute organ dysfunction status: with acute organ dysfunction Sepsis type: sepsis due to unspecified organism Severe sepsis acute organ dysfunction type: acute respiratory failure Severe sepsis shock status: without septic shock Toxic metabolic encephalopathy G92 Rapid atrial fibrillation I48.91 Hypertension I10 Hypertension type: unspecified Demand ischemia I24.8 Dementia F03.90 Dementia behavioral disturbance: without behavioral disturbance Dementia type: unspecified type Ileus K56.7 Physical deconditioning R53.81 DVT prophylaxis Z29.9 Time Spent (min) 35 (1) Dementia Dementia behavioral disturbance: without behavioral disturbance Dementia type: unspecified type Qualified Code(s): F03.90 - Unspecified dementia without behavioral disturbance (2) Sepsis Acute respiratory failure type: with hypoxia Sepsis acute organ dysfunction status: with acute organ dysfunction Sepsis type: sepsis due to unspecified organism Severe sepsis acute organ dysfunction type: acute respiratory failure Severe sepsis shock status: without septic shock Qualified Code(s): A41.9 - Sepsis, unspecified organism; R65.20 - Severe sepsis without septic shock; J96.01 - Acute respiratory failure with hypoxia (3) Hypertension Hypertension type: unspecified Qualified Code(s): I10 - Essential (primary) hypertension (4) Pneumonia Laterality: left Lung location: unspecified part of lung Pneumonia type: due to unspecified organism Qualified Code(s): J18.9 - Pneumonia, unspecified organism
[2019-05-13] MEDS: METOPROLOL TARTRATE 1 MG/ML VIAL IV SCH ×7 (00:39→23:52)
[2019-05-13] MEDS: SIMETHICONE 80 MG CHEW PO SCH ×5 (04:27→20:54)
[2019-05-13 06:21] LABS: BUN Creatinine Ratio 24.3 (10-20); Calcium 9.3 mg/dl (8.5-10.1); Creatinine Clr Calc Pharmacy 65.5 ml/min; Est GFR (African American) 84.7; Est GFR (Non-African American) 73.1; Potassium 3.5 mmol/L (3.5-5.1)
[2019-05-13] MEDS: ALBUT/IPRATROP 3MG/0.5MG NEB 3 ML VIAL NEB SCH ×4 (07:01→19:21)
[2019-05-13] MEDS: RIVASTIGMINE TARTRATE 1.5 MG CAP PO SCH (09:25)
[2019-05-13] MEDS: ASPIRIN 81 MG ECTAB PO SCH (09:25)
[2019-05-13] MEDS: AMOXICILLIN/CLAVULANATE 875 MG TAB PO SCH ×2 (09:25→17:14)
[2019-05-13] MEDS: FUROSEMIDE 20 MG TAB PO SCH (09:25)
[2019-05-13 10:53] LABS: Hematocrit (blood only) 39.5 % (42-52); Hemoglobin 12.8 g/dL (14.0-18.0); Mean Corpuscular Hemoglobin 30.3 pg (25-34); Mean Corpuscular Hgb Conc 32.4 g/dL (32-36); Mean Corpuscular Volume 93.6 fL (80-100); Mean Platelet Volume 10.2 fL (7.4-10.4); Platelet Count 319 K/uL (130-400); RDW Coefficient of Variation 17.3 % (11.5-14.5); RDW Standard Deviation 58.5 fL (36.4-46.3); Red Blood Count 4.22 M/uL (4.7-6.1); White Blood Count 12.02 K/uL (4.8-10.8)
[2019-05-13 11:02] LABS: INR 2.4 (0.9-1.1)
[2019-05-13] MEDS: dilTIAZem HCL 240 MG CAPCR PO SCH (12:25)
[2019-05-13 12:29] LABS: Bilirubin Direct 0.3 mg/dl (0-0.2); Bilirubin,Total 1.1 mg/dl (0.2-1); Total Protein 8.5 gm/dl (6.4-8.2)
[2019-05-13] MEDS: FAMOTIDINE 20 MG in SYRINGE 3 ML IV SCH (17:15)
[2019-05-13] MEDS: DIGOXIN 125 MCG in SYRINGE 9.5 ML IV SCH (17:15)
[2019-05-13] MEDS: dilTIAZem HCL 125 MG in DEXTROSE 5% 100 ML IV SCH ×2 (17:50→17:51)
[2019-05-13] MEDS: POLYETHYLENE (MIRALAX) 17 GM PACK PO SCH (20:09)
[2019-05-13] MEDS: TAMSULOSIN HCL 0.4 MG CAP PO SCH ×2 (20:12→20:54)
--- NOTE | 2019-05-13 22:41 | Hospitalist Progress Note ---
Date of Service May 13, 2019 Assessment & Plan (1) Acute respiratory failure with hypoxia: Now resolved on room air Secondary to RSV infection, suspected bacterial pneumonia and pulmonary edema. (2) Acute on chronic diastolic heart failure: Suspect rate-related pulmonary edema on initial CXR. Remains euvolemic on exam. Rate appears to be somewhat elevated. will continue to monitor. On diltiazem for rate controlled. No further lasix required currently, in fact concern now is more for patient keeping up with required oral intake. (3) RSV (respiratory syncytial virus infection): Supportive management. Droplet precautions. (4) Pneumonia: Multifocal PNA ?Aspiration vs. community acquired. Switched to PO Augmentin BID for 5 additional days 05/09, he has already had significant atypical coverage with Levaquin (5) Sepsis: No longer septic. Source RSV +/- bacterial PNA. Blood cultures no growth to date. Urine culture no growth. Sputum culture moderate normal gemma. (6) Toxic metabolic encephalopathy: Secondary to above infection in setting of dementia. Suspect now back to baseline but difficult to assess without family able to visit. Will now need PT/OT ordered to regain strength. (7) Rapid atrial fibrillation: Given good rate control at present will not switch to oral medications until ileus has sustained improvement Continue titrate off IV diltiazem and placed on oral diltiazem, metoprolol and digoxin Anticoagulation with warfarin; INR currently supratherapeutic, suspect this will start coming down now off Levaquin. Previous hospitalist discussed possibility of Possible vitamin K deficiency. Unsure if patient has a liver pathology, however ct scan showed normal contour of liver. Bilirrubin mildly high. Continue to hold warfarin as patient is therapuetic. Possibly would do better on DOAC given Alzhiemers and inconsistent diet. (8) Hypertension: Stable on diltiazem and metoprolol mainly for rate control. (9) Demand ischemia: Mild elevation in troponin in setting of a. fib with RVR. (10) Dementia: Rivastigmine + memantine as an outpatient. Restarted rivastigmine as may help with ileus. (11) Ileus: SBO ruled out with CT A/P Similar distension. Restarted rivastigmine above today. Continue on simethicone and IV famotidine. Continue to wean diltiazem as likely contributing. Trial Golytely although patient was unable to tolerate much of this. Will give glycerin supp. followed by Bisacodyl supp. (12) Physical deconditioning: Continue PT/OT. Patient's reports wish to go home from hospital if possible. (13) DVT prophylaxis: INR at goal. will monitor. Held warfarin since admission Admission and Anticipated Discharge Date Admission Date: May 04, 2019 Subjective Patient is a poor historian. He has no new complaints. Review of Systems Review of Systems: All systems reviewed & are unremarkable except as noted in HPI & below Physical Exam Physical Exam: Constitutional: well developed; no acute distress Eyes: + anicteric sclerae; normal pupil size ENMT: external ear and nose normal, oropharynx normal Mouth: + dry oral mucous membranes Neck: trachea midline Respiratory: normal respiratory effort; no respiratory distress and no cough Auscultation: + rhonchi (b/l equal throughout,); no crackles, no rales and no wheezes Cardiovascular: Rate/Rhythm: regular rate and + irregularly irregular Heart Sounds: no murmur Vessels: no JVD Extremities: normal capillary refill; no calf tenderness and no pedal edema Gastrointestinal (Abdomen): Inspection/Auscultation: + abdomen distended (similar to yesterday) and normal bowel sounds Percussion/Palpation: abdomen soft; abdomen nontender, no guarding and abdomen not rigid Musculoskeletal: no cyanosis or clubbing, extremities motor strength 5/5 Skin: no rashes, warm and dry (no cellulitic changes on exposed skin) Neurologic: moves all extremities, awake and + confused (baseline dementia) Psychiatric: Orientation: alert and oriented to person; + not oriented to place and + not oriented to time Lymphatic: no cervical or axillary lymphadenopathy Results & Data ([facility]) Vital Signs (Past 12 Hours) Vital Signs Temp Pulse Pulse Pulse Resp BP BP 05/13/19 20:12 106 H 147/85 H 05/13/19 19:26 101 H 20 05/13/19 19:23 36.6 C 106 H 20 147/85 H 05/13/19 17:15 80 05/13/19 16:34 105 H 114/77 05/13/19 15:24 81 05/13/19 15:15 36.7 C 96 H 20 114/77 05/13/19 15:14 95 H 16 05/13/19 15:00 81 05/13/19 12:25 108 H 05/13/19 11:45 37.0 C 108 H 18 149/74 H Pulse Ox 05/13/19 20:12 05/13/19 19:26 96 05/13/19 19:23 95 05/13/19 17:15 05/13/19 16:34 05/13/19 15:24 05/13/19 15:15 92 05/13/19 15:14 93 05/13/19 15:00 05/13/19 12:25 05/13/19 11:45 98 PG Care Time/CCT Total # of Minutes Spent Total Time Spent with Patient: Total time spent is greater than 50% in coordination of care (as documented) at patient's floor/unit and/or counseling patient: Coding Level of Care Code 71442 Subseq Hosp Care Lvl 3 Diagnoses Acute respiratory failure with hypoxia J96.01 Acute on chronic diastolic heart failure I50.33 RSV (respiratory syncytial virus infection) B97.4 Pneumonia J18.9 Laterality: left Lung location: unspecified part of lung Pneumonia type: due to unspecified organism Sepsis A41.9; R65.20; J96.01 Acute respiratory failure type: with hypoxia Sepsis acute organ dysfunction status: with acute organ dysfunction Sepsis type: sepsis due to unspecified organism Severe sepsis acute organ dysfunction type: acute respiratory failure Severe sepsis shock status: without septic shock Toxic metabolic encephalopathy G92 Rapid atrial fibrillation I48.91 Hypertension I10 Hypertension type: unspecified Demand ischemia I24.8 Dementia F03.90 Dementia behavioral disturbance: without behavioral disturbance Dementia type: unspecified type Ileus K56.7 Physical deconditioning R53.81 DVT prophylaxis Z29.9 Time Spent (min) 35 (1) Dementia Dementia behavioral disturbance: without behavioral disturbance Dementia type: unspecified type Qualified Code(s): F03.90 - Unspecified dementia without behavioral disturbance (2) Sepsis Acute respiratory failure type: with hypoxia Sepsis acute organ dysfunction status: with acute organ dysfunction Sepsis type: sepsis due to unspecified organism Severe sepsis acute organ dysfunction type: acute respiratory failure Severe sepsis shock status: without septic shock Qualified Code(s): A41.9 - Sepsis, unspecified organism; R65.20 - Severe sepsis without septic shock; J96.01 - Acute respiratory failure with hypoxia (3) Hypertension Hypertension type: unspecified Qualified Code(s): I10 - Essential (primary) hypertension (4) Pneumonia Laterality: left Lung location: unspecified part of lung Pneumonia type: due to unspecified organism Qualified Code(s): J18.9 - Pneumonia, unspecified organism
[2019-05-14] MEDS: METOPROLOL TARTRATE 1 MG/ML VIAL IV SCH ×6 (03:43→23:28)
[2019-05-14] MEDS: SIMETHICONE 80 MG CHEW PO SCH ×4 (04:01→20:18)
[2019-05-14 04:33] LABS: INR 2.6 (0.9-1.1); Prothrombin Time 25.6 Seconds (9.0-12.0)
[2019-05-14 04:37] LABS: BUN Creatinine Ratio 22.7 (10-20); Calcium 9.3 mg/dl (8.5-10.1); Creatinine Clr Calc Pharmacy 64.8 ml/min; Est GFR (African American) 83.7; Est GFR (Non-African American) 72.2; Potassium 3.8 mmol/L (3.5-5.1)
[2019-05-14 04:40] LABS: Albumin Globulin Ratio 0.5 (0.9-2); Bilirubin,Total 1.2 mg/dl (0.2-1); Globulin 5.6 gm/dl (2.5-4.0); Total Protein 8.6 gm/dl (6.4-8.2)
[2019-05-14] MEDS: ALBUT/IPRATROP 3MG/0.5MG NEB 3 ML VIAL NEB SCH ×4 (07:28→18:48)
[2019-05-14] MEDS: FUROSEMIDE 20 MG TAB PO SCH (07:47)
[2019-05-14] MEDS: dilTIAZem HCL 240 MG CAPCR PO SCH (07:47)
[2019-05-14] MEDS: RIVASTIGMINE TARTRATE 1.5 MG CAP PO SCH (07:47)
[2019-05-14] MEDS: ASPIRIN 81 MG ECTAB PO SCH (07:47)
[2019-05-14] MEDS: AMOXICILLIN/CLAVULANATE 875 MG TAB PO SCH ×2 (07:48→16:58)
[2019-05-14] MEDS: DIGOXIN 125 MCG in SYRINGE 9.5 ML IV SCH (16:57)
[2019-05-14] MEDS: FAMOTIDINE 20 MG in SYRINGE 3 ML IV SCH (19:03)
[2019-05-14] MEDS: POLYETHYLENE (MIRALAX) 17 GM PACK PO SCH ×2 (20:19→20:30)
[2019-05-14] MEDS: TAMSULOSIN HCL 0.4 MG CAP PO SCH ×2 (20:19→20:30)
--- NOTE | 2019-05-14 21:44 | Hospitalist Progress Note ---
Date of Service May 14, 2019 Assessment & Plan (1) Acute respiratory failure with hypoxia: Now resolved on room air Secondary to RSV infection, suspected bacterial pneumonia and pulmonary edema. (2) Acute on chronic diastolic heart failure: Suspect rate-related pulmonary edema on initial CXR. Remains euvolemic on exam. Rate appears to be somewhat elevated. will continue to monitor. On diltiazem for rate controlled. Transitioned to PO diltiazem. HR does appear to be better controlled, but HR remains elevated. No further lasix required currently, in fact concern now is more for patient keeping up with required oral intake. (3) RSV (respiratory syncytial virus infection): Supportive management. Droplet precautions. (4) Pneumonia: Multifocal PNA ?Aspiration vs. community acquired. Switched to PO Augmentin BID for 5 additional days 05/09, he has already had significant atypical coverage with Levaquin (5) Sepsis: No longer septic. Source RSV +/- bacterial PNA. Blood cultures no growth to date. Urine culture no growth. Sputum culture moderate normal gemma. (6) Toxic metabolic encephalopathy: Secondary to above infection in setting of dementia. Suspect now back to baseline but difficult to assess without family able to visit. Will now need PT/OT ordered to regain strength. (7) Rapid atrial fibrillation: Given good rate control at present will not switch to oral medications until ileus has sustained improvement Continue titrate off IV diltiazem and placed on oral diltiazem, metoprolol and digoxin Anticoagulation with warfarin; INR currently supratherapeutic, suspect this will start coming down now off Levaquin. Previous hospitalist discussed possibility of Possible vitamin K deficiency. Unsure if patient has a liver pathology, however ct scan showed normal contour of liver. Bilirrubin mildly high. Continue to hold warfarin as patient is therapuetic. Possibly would do better on DOAC given Alzhiemers and inconsistent diet. (8) Hypertension: Stable on diltiazem and metoprolol mainly for rate control. (9) Demand ischemia: Mild elevation in troponin in setting of a. fib with RVR. (10) Dementia: Rivastigmine + memantine as an outpatient. Restarted rivastigmine as may help with ileus. (11) Ileus: SBO ruled out with CT A/P Similar distension. Restarted rivastigmine above today. Continue on simethicone and IV famotidine. Continue to wean diltiazem as likely contributing. Trial Golytely although patient was unable to tolerate much of this. Will give glycerin supp. followed by Bisacodyl supp. (12) Physical deconditioning: Continue PT/OT. Patient's reports wish to go home from hospital if possible. (13) DVT prophylaxis: INR at goal. will monitor. Held warfarin since admission Admission and Anticipated Discharge Date Admission Date: May 04, 2019 Subjective Patient is a poor historian. Review of Systems Review of Systems: All systems reviewed & are unremarkable except as noted in HPI & below Physical Exam Physical Exam: Constitutional: well developed; no acute distress Eyes: + anicteric sclerae; normal pupil size ENMT: external ear and nose normal, oropharynx normal Mouth: + dry oral mucous membranes Neck: trachea midline Respiratory: normal respiratory effort; no respiratory distress and no cough Auscultation: + rhonchi (b/l equal throughout,); no crackles, no rales and no wheezes Cardiovascular: Rate/Rhythm: regular rate and + irregularly irregular Heart Sounds: no murmur Vessels: no JVD Extremities: normal capillary refill; no ca lf tenderness and no pedal edema Gastrointestinal (Abdomen): Inspection/Auscultation: + abdomen distended (similar to yesterday) and normal bowel sounds Percussion/Palpation: abdomen soft; abdomen nontender, no guarding and abdomen not rigid Musculoskeletal: no cyanosis or clubbing, extremities motor strength 5/5 Skin: no rashes, warm and dry (no cellulitic changes on exposed skin) Neurologic: moves all extremities, awake and + confused (baseline dementia) Psychiatric: Orientation: alert and oriented to person; + not oriented to place and + not oriented to time Lymphatic: no cervical or axillary lymphadenopathy Results & Data Results & Data ([facility]) Vital Signs (Past 12 Hours) Vital Signs Temp Pulse Pulse Pulse Pulse Resp BP 05/14/19 20:19 37.5 C 105 H 21 05/14/19 20:16 114 H 172/72 H 05/14/19 18:50 85 16 05/14/19 16:57 125 H 05/14/19 16:52 128 H 124/74 05/14/19 16:49 123 H 05/14/19 15:22 97 H 16 05/14/19 15:09 36.8 C 114 H 18 05/14/19 11:41 104 H 147/82 H 05/14/19 11:15 115 H 18 05/14/19 11:09 37.3 C 115 H 18 BP Pulse Ox 05/14/19 20:19 172/72 H 93 05/14/19 20:16 05/14/19 18:50 93 05/14/19 16:57 05/14/19 16:52 05/14/19 16:49 124/74 05/14/19 15:22 94 05/14/19 15:09 159/81 H 94 05/14/19 11:41 05/14/19 11:15 94 05/14/19 11:09 165/80 H 94 PG Care Time/CCT Total # of Minutes Spent Total Time Spent with Patient: Total time spent is greater than 50% in coordination of care (as documented) at patient's floor/unit and/or counseling patient: Coding Level of Care Code 93824 Subseq Hosp Care Lvl 2 Diagnoses Acute respiratory failure with hypoxia J96.01 Acute on chronic diastolic heart failure I50.33 RSV (respiratory syncytial virus infection) B97.4 Pneumonia J18.9 Laterality: left Lung location: unspecified part of lung Pneumonia type: due to unspecified organism Sepsis A41.9; R65.20; J96.01 Acute respiratory failure type: with hypoxia Sepsis acute organ dysfunction status: with acute organ dysfunction Sepsis type: sepsis due to unspecified organism Severe sepsis acute organ dysfunction type: acute respiratory failure Severe sepsis shock status: without septic shock Toxic metabolic encephalopathy G92 Rapid atrial fibrillation I48.91 Hypertension I10 Hypertension type: unspecified Demand ischemia I24.8 Dementia F03.90 Dementia behavioral disturbance: without behavioral disturbance Dementia type: unspecified type Ileus K56.7 Physical deconditioning R53.81 DVT prophylaxis Z29.9 Time Spent (min) 25 (1) Dementia Dementia behavioral disturbance: without behavioral disturbance Dementia type: unspecified type Qualified Code(s): F03.90 - Unspecified dementia without behavioral disturbance (2) Sepsis Acute respiratory failure type: with hypoxia Sepsis acute organ dysfunction status: with acute organ dysfunction Sepsis type: sepsis due to unspecified organism Severe sepsis acute organ dysfunction type: acute respiratory failure Severe sepsis shock status: without septic shock Qualified Code(s): A41.9 - Sepsis, unspecified organism; R65.20 - Severe sepsis without septic shock; J96.01 - Acute respiratory failure with hypoxia (3) Hypertension Hypertension type: unspecified Qualified Code(s): I10 - Essential (primary) hypertension (4) Pneumonia Laterality: left Lung location: unspecified part of lung Pneumonia type: due to unspecified organism Qualified Code(s): J18.9 - Pneumonia, unspecified organism
[2019-05-15] MEDS: SIMETHICONE 80 MG CHEW PO SCH ×4 (04:19→21:10)
[2019-05-15] MEDS: METOPROLOL TARTRATE 1 MG/ML VIAL IV SCH ×2 (04:19→09:01)
[2019-05-15] MEDS: ALBUT/IPRATROP 3MG/0.5MG NEB 3 ML VIAL NEB SCH ×4 (06:53→19:23)
[2019-05-15] MEDS: dilTIAZem HCL 240 MG CAPCR PO SCH ×2 (09:01→21:11)
[2019-05-15] MEDS: ASPIRIN 81 MG ECTAB PO SCH (09:01)
[2019-05-15] MEDS: FUROSEMIDE 20 MG TAB PO SCH (09:02)
[2019-05-15] MEDS: AMOXICILLIN/CLAVULANATE 875 MG TAB PO SCH (09:02)
[2019-05-15] MEDS: RIVASTIGMINE TARTRATE 1.5 MG CAP PO SCH (09:02)
--- NOTE | 2019-05-15 11:54 | XRay Report ---
SINGLE VIEW CHEST CLINICAL HISTORY: Tachycardia. FINDINGS: An AP, portable, upright chest radiograph is compared to study dated 05/10/2019 and correlat ed with chest CT dated 01/31/2019. The examination is significantly degraded by portable technique an d patient rotation. The heart is enlarged. The pulmonary vasculature is noncongested. There is no ai rspace consolidation or large pleural effusion. Scattered calcified granulomas are observed. Airspace opacities seen previously have resolved. No pneumothorax is seen. The skeletal structures are osteop enic. The bony thorax is grossly intact. IMPRESSION: Cardiomegaly with no acute cardiopulmonary abnormality. ACT 112: Negative or not required by law. Electronically signed by: Emile Neal M.D. 05/15/2019 11:53 AM
[2019-05-15 12:20] LABS: Basophils # (auto) 0.09 K/uL (0-0.2); Basophils % (auto) 0.7 %; Eosinophils # (auto) 0.28 K/uL (0-0.5); Eosinophils % (auto) 2.1 %; Hematocrit (blood only) 44.3 % (42-52); Hemoglobin 14.1 g/dL (14.0-18.0); Immature Granulocytes # (auto) 0.03 K/uL (0.00-0.02); Immature Granulocytes % (auto) 0.2 %; Lymphocytes % (auto) 21.6 %; Mean Corpuscular Hemoglobin 30.2 pg (25-34); Mean Corpuscular Hgb Conc 31.8 g/dL (32-36); Mean Corpuscular Volume 94.9 fL (80-100); Mean Platelet Volume 10.6 fL (7.4-10.4); Monocytes # (auto) 0.71 K/uL (0.11-0.59); Monocytes % (auto) 5.3 %; Neutrophils # (auto) 9.43 K/uL (1.4-6.5); Neutrophils % (auto) 70.1 %; Platelet Count 412 K/uL (130-400); RDW Coefficient of Variation 17.3 % (11.5-14.5); RDW Standard Deviation 59.9 fL (36.4-46.3); Red Blood Count 4.67 M/uL (4.7-6.1); White Blood Count 13.44 K/uL (4.8-10.8)
[2019-05-15 12:34] LABS: BUN Creatinine Ratio 23.6 (10-20); Calcium 9.6 mg/dl (8.5-10.1); Creatinine Clr Calc Pharmacy 53.4 ml/min; Est GFR (African American) 66.3; Est GFR (Non-African American) 57.2; Potassium 4.1 mmol/L (3.5-5.1)
[2019-05-15] MEDS: METOPROLOL TARTRATE 50 MG TAB PO SCH ×3 (12:47→21:11)
[2019-05-15] MEDS: FAMOTIDINE 20 MG in SYRINGE 3 ML IV SCH (17:01)
[2019-05-15] MEDS: DIGOXIN 125 MCG in SYRINGE 9.5 ML IV SCH (17:01)
[2019-05-15] MEDS: TAMSULOSIN HCL 0.4 MG CAP PO SCH (21:11)
[2019-05-15] MEDS: POLYETHYLENE (MIRALAX) 17 GM PACK PO SCH (21:11)
--- NOTE | 2019-05-15 22:24 | Hospitalist Progress Note ---
Date of Service May 15, 2019 Assessment & Plan (1) Acute respiratory failure with hypoxia: Now resolved on room air Secondary to RSV infection, suspected bacterial pneumonia and pulmonary edema. Completed augmentin. Patient is now on room air, and has negative procalcitonin (2) Acute on chronic diastolic heart failure: Suspect rate-related pulmonary edema on initial CXR. Remains euvolemic on exam. Rate appears to be somewhat elevated. will continue to monitor. On diltiazem for rate controlled. Transitioned to PO diltiazem. HR does appear to be better controlled, but HR remains elevated. Will increase diltiazem to BID at max dose after discussing with cardio. No further lasix required currently, in fact concern now is more for patient keeping up with required oral intake. May consider giving fluid to patient. (3) RSV (respiratory syncytial virus infection): Supportive management. Droplet precautions. (4) Pneumonia: Multifocal PNA ?Aspiration vs. community acquired. Switched to PO Augmentin BID for 5 additional days 05/09. This has been completed. He has already had significant atypical coverage with Levaquin (5) Sepsis: No longer septic. Source RSV +/- bacterial PNA. Blood cultures no growth to date. Urine culture no growth. Sputum culture moderate normal gemma. (6) Toxic metabolic encephalopathy: Secondary to above infection in setting of dementia. Suspect now back to baseline but difficult to assess without family able to visit. Will now need PT/OT ordered to regain strength. (7) Rapid atrial fibrillation: Given good rate control at present will not switch to oral medications until ileus has sustained improvement Continue titrate off IV diltiazem and placed on oral diltiazem, metoprolol and digoxin Anticoagulation with warfarin; INR currently supratherapeutic, suspect this will start coming down now off Levaquin. Previous hospitalist discussed possibility of Possible vitamin K deficiency. Unsure if patient has a liver pathology, however ct scan showed normal contour of liver. Bilirrubin mildly high. Continue to hold warfarin as patient is therapuetic. Possibly would do better on DOAC given Alzhiemers and inconsistent diet. Upped his dilitazem, upped the metorpolol, and will continue dig. will continue to monitor. (8) Hypertension: Stable on diltiazem and metoprolol mainly for rate control. (9) Demand ischemia: Mild elevation in troponin in setting of a. fib with RVR. (10) Dementia: Rivastigmine + memantine as an outpatient. Restarted rivastigmine as may help with ileus. (11) Ileus: SBO ruled out with CT A/P Similar distension. Restarted rivastigmine above today. Continue on simethicone and IV famotidine. Continue to wean diltiazem as likely contributing. Trial Golytely although patient was unable to tolerate much of this. Will give glycerin supp. followed by Bisacodyl supp. (12) Physical deconditioning: Continue PT/OT. Patient's reports wish to go home from hospital if possible. Do not believe this to be an option. (13) DVT prophylaxis: INR at goal. will monitor. Held warfarin since admission Admission and Anticipated Discharge Date Admission Date: May 04, 2019 Subjective Updated over the phone. Answered all of the 's questions. Patient has no new complaints today Review of Systems Review of Systems: All systems reviewed & are unremarkable except as noted in HPI & below Physical Exam Physical Exam: Constitutional: well developed; no acute distress Eyes: + anicteric sclerae; normal pupil size ENMT: external ear and nose normal, oropharynx normal Mouth: + dry oral mucous membranes Neck: trachea midline Respiratory: normal respiratory effort; no respiratory distress and no cough Auscultation: + rhonchi (b/l equal throughout,); no crackles, no rales and no wheezes Cardiovascular: Rate/Rhythm: regular rate and + irregularly irregular Heart Sounds: no murmur Vessels: no JVD Extremities: normal capillary refill; no calf tenderness and no pedal edema Gastrointestinal (Abdomen): Inspection/Auscultation: + abdomen distended (similar to yesterday) and normal bowel sounds Percussion/Palpation: abdomen soft; abdomen nontender, no guarding and abdomen not rigid Musculoskeletal: no cyanosis or clubbing, extremities motor strength 5/5 Skin: no rashes, warm and dry (no cellulitic changes on exposed skin) Neurologic: moves all extremities, awake and + confused (baseline dementia) Psychiatric: Orientation: alert and oriented to person; + not oriented to place and + not oriented to time Lymphatic: no cervical or axillary lymphadenopathy Results & Data Results & Data ([facility]) Vital Signs (Past 12 Hours) Vital Signs Temp Pulse Pulse Pulse Resp BP Pulse Ox 05/15/19 19:31 36.6 C 104 H 20 136/85 92 05/15/19 19:24 103 H 18 90 05/15/19 17:01 115 H 05/15/19 15:00 36.6 C 112 H 18 141/88 H 95 05/15/19 12:48 129/85 05/15/19 11:35 112 H 18 97 PG Care Time/CCT Total # of Minutes Spent Total Time Spent with Patient: Total time spent is greater than 50% in coordination of care (as documented) at patient's floor/unit and/or counseling patient: Coding Level of Care Code 10598 Subseq Hosp Care Lvl 3 Diagnoses Acute respiratory failure with hypoxia J96.01 Acute on chronic diastolic heart failure I50.33 RSV (respiratory syncytial virus infection) B97.4 Pneumonia J18.9 Laterality: left Lung location: unspecified part of lung Pneumonia type: due to unspecified organism Sepsis A41.9; R65.20; J96.01 Acute respiratory failure type: with hypoxia Sepsis acute organ dysfunction status: with acute organ dysfunction Sepsis type: sepsis due to unspecified organism Severe sepsis acute organ dysfunction type: acute respiratory failure Severe sepsis shock status: without septic shock Toxic metabolic encephalopathy G92 Rapid atrial fibrillation I48.91 Hypertension I10 Hypertension type: unspecified Demand ischemia I24.8 Dementia F03.90 Dementia behavioral disturbance: without behavioral disturbance Dementia type: unspecified type Ileus K56.7 Physical deconditioning R53.81 DVT prophylaxis Z29.9 Time Spent (min) 35 (1) Dementia Dementia behavioral disturbance: without behavioral disturbance Dementia type: unspecified type Qualified Code(s): F03.90 - Unspecified dementia without behavioral disturbance (2) Sepsis Acute respiratory failure type: with hypoxia Sepsis acute organ dysfunction status: with acute organ dysfunction Sepsis type: sepsis due to unspecified organism Severe sepsis acute organ dysfunction type: acute respiratory failure Severe sepsis shock status: without septic shock Qualified Code(s): A41.9 - Sepsis, unspecified organism; R65.20 - Severe sepsis without septic shock; J96.01 - Acute respiratory failure with hypoxia (3) Hypertension Hypertension type: unspecified Qualified Code(s): I10 - Essential (primary) hypertension (4) Pneumonia Laterality: left Lung location: unspecified part of lung Pneumonia type: due to unspecified organism Qualified Code(s): J18.9 - Pneumonia, unspecified organism
[2019-05-16] MEDS ORDERED: METOPROLOL TARTRATE 1 MG/ML VIAL IV STA (00:54)
[2019-05-16] MEDS: SIMETHICONE 80 MG CHEW PO SCH ×4 (04:34→20:49)
[2019-05-16 05:59] LABS: INR 2.9 (0.9-1.1); Prothrombin Time 29.1 Seconds (9.0-12.0)
[2019-05-16 06:21] LABS: Magnesium 3.1 mg/dl (1.8-2.4)
[2019-05-16] MEDS: ALBUT/IPRATROP 3MG/0.5MG NEB 3 ML VIAL NEB SCH (07:13)
[2019-05-16] MEDS: dilTIAZem HCL 240 MG CAPCR PO SCH ×2 (07:35→20:49)
[2019-05-16] MEDS: METOPROLOL TARTRATE 50 MG TAB PO SCH ×4 (07:35→20:49)
[2019-05-16] MEDS: ASPIRIN 81 MG ECTAB PO SCH (07:35)
[2019-05-16] MEDS: RIVASTIGMINE TARTRATE 1.5 MG CAP PO SCH (07:35)
[2019-05-16] MEDS: ACETAMINOPHEN 325 MG TAB PO PRN ×2 (07:36→12:12)
[2019-05-16 08:20] LABS: Basophils % (auto) 0.8 %; Eosinophils # (auto) 0.33 K/uL (0-0.5); Eosinophils % (auto) 2.7 %; Hematocrit (blood only) 43.3 % (42-52); Hemoglobin 13.7 g/dL (14.0-18.0); Immature Granulocytes # (auto) 0.02 K/uL (0.00-0.02); Immature Granulocytes % (auto) 0.2 %; Lymphocytes # (auto) 3.31 K/uL (1.2-3.4); Lymphocytes % (auto) 26.6 %; Mean Corpuscular Hemoglobin 29.6 pg (25-34); Mean Corpuscular Hgb Conc 31.6 g/dL (32-36); Mean Corpuscular Volume 93.5 fL (80-100); Mean Platelet Volume 11.1 fL (7.4-10.4); Monocytes # (auto) 0.74 K/uL (0.11-0.59); Monocytes % (auto) 5.9 %; Neutrophils # (auto) 7.95 K/uL (1.4-6.5); Neutrophils % (auto) 63.8 %; Platelet Count 424 K/uL (130-400); RDW Coefficient of Variation 17.2 % (11.5-14.5); RDW Standard Deviation 58.9 fL (36.4-46.3); Red Blood Count 4.63 M/uL (4.7-6.1); White Blood Count 12.45 K/uL (4.8-10.8)
[2019-05-16] MEDS: LACTATED RINGER'S 1,000 ML IV SCH ×2 (08:23→20:40)
[2019-05-16] MEDS ORDERED: LEVALBUTEROL HCL 1.25 MG/3 ML NEB NEB PRN (08:58)
[2019-05-16 10:01] LABS: Calcium 9.9 mg/dl (8.5-10.1); Creatinine Clr Calc Pharmacy 44.2 ml/min; Est GFR (African American) 52.7; Est GFR (Non-African American) 45.5; Potassium 4.1 mmol/L (3.5-5.1)
[2019-05-16] MEDS: DOCUSATE SODIUM/SENNA 50/8.6MG TAB PO SCH (12:12)
[2019-05-16] MEDS: DIGOXIN 0.125 MG TAB PO SCH (16:14)
[2019-05-16] MEDS: FAMOTIDINE 20 MG in SYRINGE 3 ML IV SCH (17:41)
[2019-05-16] MEDS: POLYETHYLENE (MIRALAX) 17 GM PACK PO SCH (20:48)
[2019-05-16] MEDS: TAMSULOSIN HCL 0.4 MG CAP PO SCH (20:49)
--- NOTE | 2019-05-16 22:54 | Hospitalist Progress Note ---
Date of Service May 16, 2019 Assessment & Plan (1) Acute respiratory failure with hypoxia: Now resolved on room air Secondary to RSV infection, suspected bacterial pneumonia and pulmonary edema. Completed augmentin. Patient is now on room air, and has negative procalcitonin (2) Acute on chronic diastolic heart failure: Suspect rate-related pulmonary edema on initial CXR. Remains euvolemic on exam. Rate appears to be somewhat elevated. will continue to monitor. On diltiazem for rate controlled. Transitioned to PO diltiazem. HR does appear to be better controlled, but HR remains elevated. Will increase diltiazem to BID at max dose after discussing with cardio. No further lasix required currently, in fact concern now is more for patient keeping up with required oral intake. Started IV fluids. (3) RSV (respiratory syncytial virus infection): Supportive management. Droplet precautions. (4) Pneumonia: Multifocal PNA ?Aspiration vs. community acquired. Switched to PO Augmentin BID for 5 additional days 05/09. This has been completed. He has already had significant atypical coverage with Levaquin (5) Sepsis: No longer septic. Source RSV +/- bacterial PNA. Blood cultures no growth to date. Urine culture no growth. Sputum culture moderate normal gemma. (6) Toxic metabolic encephalopathy: Secondary to above infection in setting of dementia. Suspect now back to baseline but difficult to assess without family able to visit. Will now need PT/OT ordered to regain strength. (7) Rapid atrial fibrillation: Given good rate control at present will not switch to oral medications until ileus has sustained improvement Continue titrate off IV diltiazem and placed on oral diltiazem, metoprolol and digoxin Anticoagulation with warfarin; INR currently supratherapeutic, suspect this will start coming down now off Levaquin. Previous hospitalist discussed possibility of Possible vitamin K deficiency. Unsure if patient has a liver pathology, however ct scan showed normal contour of liver. Bilirrubin mildly high. Continue to hold warfarin as patient is therapuetic. Possibly would do better on DOAC given Alzhiemers and inconsistent diet. Upped his dilitazem, upped the metorpolol, and will continue dig. On 05/15, on max dose of diltiazem. Will increase beta giovany to 200 mg a day (50 QID) Continue dig. will hold nebulizers as this may be playing a role of his tachycardia. Will also institute IVF and monitor Heart rate as he may be dry. (8) Hypertension: Stable on diltiazem and metoprolol mainly for rate control. (9) Demand ischemia: Mild elevation in troponin in setting of a. fib with RVR. (10) Dementia: Rivastigmine + memantine as an outpatient. Restarted rivastigmine as may help with ileus. (11) Ileus: SBO ruled out with CT A/P Similar distension. Restarted rivastigmine above today. Continue on simethicone and IV famotidine. Continue to wean diltiazem as likely contributing. Trial Golytely although patient was unable to tolerate much of this. Will give glycerin supp. followed by Bisacodyl supp. (12) Physical deconditioning: Continue PT/OT. Patient's reports wish to go home from hospital if possible. Do not believe this to be an option. (13) DVT prophylaxis: INR at goal. will monitor. Held warfarin since admission Admission and Anticipated Discharge Date Admission Date: May 04, 2019 Subjective 73 yo male is a poor historian. Does not given any new history at this time. Review of Systems Review of Systems: All systems reviewed & are unremarkable except as noted in HPI & below Physical Exam Physical Exam: Constitutional: well developed; no acute distress Eyes: + anicteric sclerae; normal pupil size ENMT: external ear and nose normal, oropharynx normal Mouth: + dry oral mucous membranes Neck: trachea midline Respiratory: normal respiratory effort; no respiratory distress and no cough Auscultation: + rhonchi (b/l equal throughout,); no crackles, no rales and no wheezes Cardiovascular: Rate/Rhythm: regular rate and + irregularly irregular Heart Sounds: no murmur Vessels: no JVD Extremities: normal capillary refill; no calf tenderness and no pedal edema Gastrointestinal (Abdomen): Inspection/Auscultation: + abdomen distended (similar to yesterday) and normal bowel sounds Percussion/Palpation: abdomen soft; abdomen nontender, no guarding and abdomen not rigid Musculoskeletal: no cyanosis or clubbing, extremities motor strength 5/5 Skin: no rashes, warm and dry (no cellulitic changes on exposed skin) Neurologic: moves all extremities, awake and + confused (baseline dementia) Psychiatric: Orientation: alert and oriented to person; + not oriented to place and + not oriented to time Lymphatic: no cervical or axillary lymphadenopathy Results & Data Results & Data ([facility]) Vital Signs (Past 12 Hours) Vital Signs Temp Pulse Pulse Resp BP Pulse Ox 05/16/19 19:29 37.2 C 88 16 138/89 93 05/16/19 16:14 126 H 05/16/19 15:51 124/94 93 05/16/19 15:27 37.1 C 05/16/19 12:08 36.9 C 95 H 18 140/75 95 PG Care Time/CCT Total # of Minutes Spent Total Time Spent with Patient: Total time spent is greater than 50% in coordination of care (as documented) at patient's floor/unit and/or counseling patient: Coding Level of Care Code 42393 Subseq Hosp Care Lvl 2 Diagnoses Acute respiratory failure with hypoxia J96.01 Acute on chronic diastolic heart failure I50.33 RSV (respiratory syncytial virus infection) B97.4 Pneumonia J18.9 Laterality: left Lung location: unspecified part of lung Pneumonia type: due to unspecified organism Sepsis A41.9; R65.20; J96.01 Acute respiratory failure type: with hypoxia Sepsis acute organ dysfunction status: with acute organ dysfunction Sepsis type: sepsis due to unspecified organism Severe sepsis acute organ dysfunction type: acute respiratory failure Severe sepsis shock status: without septic shock Toxic metabolic encephalopathy G92 Rapid atrial fibrillation I48.91 Hypertension I10 Hypertension type: unspecified Demand ischemia I24.8 Dementia F03.90 Dementia behavioral disturbance: without behavioral disturbance Dementia type: unspecified type Ileus K56.7 Physical deconditioning R53.81 DVT prophylaxis Z29.9 Time Spent (min) 25 (1) Dementia Dementia behavioral disturbance: without behavioral disturbance Dementia type: unspecified type Qualified Code(s): F03.90 - Unspecified dementia without behavioral disturbance (2) Sepsis Acute respiratory failure type: with hypoxia Sepsis acute organ dysfunction status: with acute organ dysfunction Sepsis type: sepsis due to unspecified organism Severe sepsis acute organ dysfunction type: acute respiratory failure Severe sepsis shock status: without septic shock Qualified Code(s): A41.9 - Sepsis, unspecified organism; R65.20 - Severe sepsis without septic shock; J96.01 - Acute respiratory failure with hypoxia (3) Hypertension Hypertension type: unspecified Qualified Code(s): I10 - Essential (primary) hypertension (4) Pneumonia Laterality: left Lung location: unspecified part of lung Pneumonia type: due to unspecified organism Qualified Code(s): J18.9 - Pneumonia, unspecified organism
[2019-05-17] MEDS: SIMETHICONE 80 MG CHEW PO SCH ×4 (04:24→21:28)
[2019-05-17] MEDS: DOCUSATE SODIUM/SENNA 50/8.6MG TAB PO SCH (07:42)
[2019-05-17] MEDS: RIVASTIGMINE TARTRATE 1.5 MG CAP PO SCH (07:42)
[2019-05-17] MEDS: dilTIAZem HCL 240 MG CAPCR PO SCH ×2 (07:43→21:27)
[2019-05-17] MEDS: ASPIRIN 81 MG ECTAB PO SCH (07:43)
[2019-05-17] MEDS: METOPROLOL TARTRATE 50 MG TAB PO SCH (07:48)
[2019-05-17] MEDS ORDERED: LACTATED RINGER'S 1,000 ML IV SCH (12:30)
[2019-05-17] MEDS: METOPROLOL TARTRATE 25 MG TAB PO SCH ×3 (14:18→21:27)
[2019-05-17] MEDS: DIGOXIN 0.125 MG TAB PO SCH (17:43)
[2019-05-17] MEDS ORDERED: MEMANTINE HCL 10 MG TAB PO SCH ×2 (19:15→21:00)
--- NOTE | 2019-05-17 19:15 | XRay Report ---
XR KUB/Abdomen 1 view CLINICAL HISTORY: 73 years-old Male presenting with constipation. TECHNIQUE: Single supine view of the abdomen was obtained. COMPARISON: 05/09/[address] from 05/05/2019. FINDINGS: Nonobstructive bowel gas pattern. No significant gastric distention. Mild gaseous distention of colon . Mild stool burden in the rectum. Otherwise no significant stool burden is appreciated. No gross pne umoperitoneum. Bilateral nephrolithiasis best appreciated on recent CT. Degenerative changes of the spine. Lung bases clear. IMPRESSION: 1. Mild stool burden in the rectum. Otherwise no significant stool burden. 2. No bowel obstruction. ACT 112: Negative or not required by law. Electronically signed by: Hay Alvarado M.D. 05/17/2019 7:14 PM
[2019-05-17] MEDS ORDERED: LACTULOSE SYRUP 30 GM/45 ML UDP PO STA (19:18)
[2019-05-17] MEDS ORDERED: MEMANTINE HCL 5 MG TAB PO ONE (19:18)
[2019-05-17] MEDS: FAMOTIDINE 20 MG in SYRINGE 3 ML IV SCH (19:44)
[2019-05-17 19:46] LABS: Hematocrit (blood only) 40.2 % (42-52); Hemoglobin 12.5 g/dL (14.0-18.0); Mean Corpuscular Hemoglobin 29.4 pg (25-34); Mean Corpuscular Hgb Conc 31.1 g/dL (32-36); Mean Corpuscular Volume 94.6 fL (80-100); Mean Platelet Volume 11.2 fL (7.4-10.4); Platelet Count 419 K/uL (130-400); RDW Coefficient of Variation 17.4 % (11.5-14.5); RDW Standard Deviation 59.4 fL (36.4-46.3); Red Blood Count 4.25 M/uL (4.7-6.1); White Blood Count 9.04 K/uL (4.8-10.8)
[2019-05-17 20:08] LABS: BUN Creatinine Ratio 29.7 (10-20); Calcium 9.8 mg/dl (8.5-10.1); Creatinine Clr Calc Pharmacy 45.4 ml/min; Est GFR (African American) 54.5; Magnesium 2.9 mg/dl (1.8-2.4); Potassium 4.2 mmol/L (3.5-5.1)
[2019-05-17] MEDS: POLYETHYLENE (MIRALAX) 17 GM PACK PO SCH (21:26)
[2019-05-17] MEDS: TAMSULOSIN HCL 0.4 MG CAP PO SCH (21:27)
--- NOTE | 2019-05-17 22:44 | Hospitalist Progress Note ---
Date of Service May 17, 2019 Assessment & Plan (1) Acute respiratory failure with hypoxia: Now resolved on room air Secondary to RSV infection, suspected bacterial pneumonia and pulmonary edema. Completed augmentin. Patient is now on room air, and has negative procalcitonin (2) Acute on chronic diastolic heart failure: Suspect rate-related pulmonary edema on initial CXR. Remains euvolemic on exam. Rate appears to be somewhat elevated despite diltiazem, metoprolol and dig. Held lasix and began giving fluid as patient appeared dry. Continue IVF. (3) RSV (respiratory syncytial virus infection): Supportive management. Droplet precautions. (4) Pneumonia: Multifocal PNA ?Aspiration vs. community acquired. Switched to PO Augmentin BID for 5 additional days 05/09. This has been completed. He has already had significant atypical coverage with Levaquin (5) Sepsis: No longer septic. Source RSV +/- bacterial PNA. Blood cultures no growth to date. Urine culture no growth. Sputum culture moderate normal gemma. (6) Toxic metabolic encephalopathy: Secondary to above infection in setting of dementia. Suspect now back to baseline but difficult to assess without family able to visit. Not participating much in PT/OT. Will restart memantine and will ttirtate up quickly. First dose 5 mg on 05/16. (7) Rapid atrial fibrillation: HR remains elevated despite holding nebs. May be secondary to either poor absoprtion or dehydration. Patient not eating well while in hospital, was on LR but giving at a slow rate due to Heart failure. HR remains elevated despite max diltiazem, on 300 mg of metorpolol and on dig. Anticoagulation with warfarin; INR currently supratherapeutic, suspect this will start coming down now off Levaquin. Previous hospitalist discussed possibility of Possible vitamin K deficiency. Unsure if patient has a liver pathology, however ct scan showed normal contour of liver. Bilirrubin mildly high. Continue to hold warfarin as patient is therapuetic. (8) Hypertension: Stable on diltiazem and metoprolol mainly for rate control. (9) Demand ischemia: Mild elevation in troponin in setting of a. fib with RVR. (10) Dementia: Rivastigmine + memantine as an outpatient. Restarted rivastigmine as may help with ileus. (11) Ileus: SBO ruled out with CT A/P Similar distension. Restarted rivastigmine. Gvae one dose of lactulose. Continue on simethicone and IV famotidine. Continue to wean diltiazem as likely contributing. Trial Golytely although patient was unable to tolerate much of this. Will give glycerin supp. followed by Bisacodyl supp. (12) Physical deconditioning: Continue PT/OT. Patient's reports wish to go home from hospital if possible. Do not believe this to be an option. (13) DVT prophylaxis: INR at goal. will monitor. Held warfarin since admission (14) Hypernatremia: Sodium continued to rise overnight. Switched LR to D5 water at rate of 125 will monitor sodium q2h to ensure no rapid drop of sodium. Admission and Anticipated Discharge Date Admission Date: May 04, 2019 Subjective Patient is a poor historian. Patient remains confused. Uodatd , will try to arrange palliative care meeting on Sunday, and see if family (daughter and ) can arrive to discuss case in person. Review of Systems Review of Systems: All systems reviewed & are unremarkable except as noted in HPI & below Physical Exam Physical Exam: Constitutional: well developed; no acute distress Eyes: + anicteric sclerae; normal pupil size ENMT: external ear and nose normal, oropharynx normal Mouth: + dry oral mucous membranes Neck: trachea midline Respiratory: normal respiratory effort; no respiratory distress and no cough Auscultation: + rhonchi (b/l equal throughout,); no crackles, no rales and no wheezes Cardiovascular: Rate/Rhythm: regular rate and + irregularly irregular Heart Sounds: no murmur Vessels: no JVD Extremities: normal capillary refill; no calf tenderness and no pedal edema Gastrointestinal (Abdomen): Inspection/Auscultation: + abdomen distended (similar to yesterday) and normal bowel sounds Percussion/Palpation: abdomen soft; abdomen nontender, no guarding and abdomen not rigid Musculoskeletal: no cyanosis or clubbing, extremities motor strength 5/5 Skin: no rashes, warm and dry (no cellulitic changes on exposed skin) Neurologic: moves all extremities, awake and + confused (baseline dementia) Psychiatric: Orientation: alert and oriented to person; + not oriented to place and + not oriented to time Lymphatic: no cervical or axillary lymphadenopathy Results & Data Results & Data ([facility]) Vital Signs (Past 12 Hours) Vital Signs Temp Pulse Pulse Resp BP Pulse Ox 05/17/19 20:17 36.3 C L 88 20 108/74 92 05/17/19 17:43 115 H 05/17/19 14:57 36.8 C 104 H 18 117/82 90 05/17/19 12:19 36.4 C L 100 H 20 118/89 94 PG Care Time/CCT Total # of Minutes Spent Total Time Spent with Patient: Total time spent is greater than 50% in coordination of care (as documented) at patient's floor/unit and/or counseling patient: Coding Level of Care Code 32633 Subseq Hosp Care Lvl 3 Diagnoses Acute respiratory failure with hypoxia J96.01 Acute on chronic diastolic heart failure I50.33 RSV (respiratory syncytial virus infection) B97.4 Pneumonia J18.9 Laterality: left Lung location: unspecified part of lung Pneumonia type: due to unspecified organism Sepsis A41.9; R65.20; J96.01 Acute respiratory failure type: with hypoxia Sepsis acute organ dysfunction status: with acute organ dysfunction Sepsis type: sepsis due to unspecified organism Severe sepsis acute organ dysfunction type: acute respiratory failure Severe sepsis shock status: without septic shock Toxic metabolic encephalopathy G92 Rapid atrial fibrillation I48.91 Hypertension I10 Hypertension type: unspecified Demand ischemia I24.8 Dementia F03.90 Dementia behavioral disturbance: without behavioral disturbance Dementia type: unspecified type Ileus K56.7 Physical deconditioning R53.81 DVT prophylaxis Z29.9 Hypernatremia E87.0 Time Spent (min) 35 (1) Dementia Dementia behavioral disturbance: without behavioral disturbance Dementia type: unspecified type Qualified Code(s): F03.90 - Unspecified dementia without behavioral disturbance (2) Sepsis Acute respiratory failure type: with hypoxia Sepsis acute organ dysfunction status: with acute organ dysfunction Sepsis type: sepsis due to unspecified or ganism Severe sepsis acute organ dysfunction type: acute respiratory failure Severe sepsis shock status: without septic shock Qualified Code(s): A41.9 - Sepsis, unspecified organism; R65.20 - Severe sepsis without septic shock; J96.01 - Acute respiratory failure with hypoxia (3) Hypertension Hypertension type: unspecified Qualified Code(s): I10 - Essential (primary) hypertension (4) Pneumonia Laterality: left Lung location: unspecified part of lung Pneumonia type: due to unspecified organism Qualified Code(s): J18.9 - Pneumonia, unspecified organism
[2019-05-17] MEDS: DEXTROSE 5% 1,000 ML IV SCH (23:03)
[2019-05-18] MEDS: SIMETHICONE 80 MG CHEW PO SCH ×6 (03:54→22:53)
[2019-05-18] MEDS ORDERED: SODIUM CHLORIDE 0.9% 1000ML 1,000 ML IV ONE (05:04)
[2019-05-18] MEDS: DEXTROSE 5% 1,000 ML IV SCH ×2 (06:00→15:41)
[2019-05-18 06:27] LABS: INR 2.4 (0.9-1.1); Prothrombin Time 23.8 Seconds (9.0-12.0)
[2019-05-18 06:46] LABS: Hematocrit (blood only) 37.2 % (42-52); Hemoglobin 11.2 g/dL (14.0-18.0); Mean Corpuscular Hemoglobin 28.7 pg (25-34); Mean Corpuscular Hgb Conc 30.1 g/dL (32-36); Mean Corpuscular Volume 95.4 fL (80-100); Mean Platelet Volume 11.1 fL (7.4-10.4); Platelet Count 383 K/uL (130-400); RDW Coefficient of Variation 17.3 % (11.5-14.5); RDW Standard Deviation 60.6 fL (36.4-46.3); White Blood Count 6.91 K/uL (4.8-10.8)
[2019-05-18 07:07] LABS: BUN Creatinine Ratio 28.1 (10-20); Calcium 9.2 mg/dl (8.5-10.1); Est GFR (Non-African American) 46.6; Potassium 3.7 mmol/L (3.5-5.1)
--- NOTE | 2019-05-18 08:08 | Hospitalist Progress Note ---
Date of Service May 18, 2019 Assessment & Plan (1) Acute respiratory failure with hypoxia: -Now resolved on room air -Secondary to RSV infection, suspected bacterial pneumonia and pulmonary edema. -Completed augmentin. -Patient is now on room air, and has negative procalcitonin -Palliative consulted for goals of care (2) Acute on chronic diastolic heart failure: - Suspect rate-related pulmonary edema on initial CXR. - Rate controlled at this time - continue diltiazem, digoxin and metoprolol: Metoprolol was titrated up to 75 mg QID yesterday but lowered today for bradycardia into the 30s - -continue holding lasix, was on D5W overnight for sodium correction but remains slightly elevated, 155 this morning, recheck sodium later this evening, twice daily afterwards. (3) RSV (respiratory syncytial virus infection): - Supportive management. Droplet precautions. (4) Hypernatremia: - Sodium has trended down to 155 this morning after switched LR to D5W @ 125ml/hr on 05/16. NA+ labs BID at this point, did every q2h checks overnight, with minimal changes in sodium. - Glucose is now elevated at 155 likely from dextrose. -need to encourage free water intake po with catering staff member (5) Pneumonia: -Multifocal PNA -?Aspiration vs. community acquired vs from RSV. -Switched to PO Augmentin BID for 5 additional days 05/09. This has been completed. -He has already had significant atypical coverage with Levaquin -Encourage incentive spirometry, flutter, ambulation with fall precautions Last CXR with resolution of previous infiltrates (6) Sepsis: -Resolved -Source RSV +/- bacterial PNA. Blood cultures no growth to date. Urine culture no growth. Sputum culture moderate normal gemma. (7) Toxic metabolic encephalopathy: - Secondary to above infection in setting of dementia. - Suspect now back to baseline but difficult to assess without family able to visit. - Not participating much in PT/OT. - Restarted memantine on 05/16, titrate up (8) Rapid atrial fibrillation: - HR are running in the 30s 40s and 50s this afternoon after noon dose of metoprolol, will reduce back to 50 mg QID, has been rate controlled for past day otherwise - cardiology consulted - Possibly secondary to dehydration as the patient was dry on admission, holding Lasix, IVFs on board - Continue diltiazem, metoprolol and digoxin - Anticoagulation with warfarin on HOLD since admission and continues to have t herapeutic INR ; INR 2.4 today, likely trending down since off Levaquin - Previous hospitalist discussed possibility of Possible vitamin K deficiency.- Unsure if patient has a liver pathology, however ct scan showed normal contour of liver. Last total bilirubin 1.2 on 05/13. -f/u Vit K level when available -unclear if properly anticoagulated given no coumadin in 2 weeks -can discuss with Dr. Trevino on Sunday about whether to convert to DOAC (9) Hypertension: - Stable on diltiazem and metoprolol - cardiology consulted - Dr. Thornton on board (10) Demand ischemia: - Mild elevation in troponin in setting of a. fib with RVR - now improved (11) Dementia: - Rivastigmine + memantine as an outpatient. - Restarted rivastigmine as may help with ileus. - reports baseline is not oriented to date, place, current events. (12) Ileus: -SBO ruled out with CT A/P -Similar distension. Restarted rivastigmine. KUB improved gastric distension -Continue on simethicone and famotidine. -was given lactulose on 05/16 -Trial Golytely although patient was unable to tolerate much of this. Will give glycerin supp. followed by Bisacodyl supp. -increase senna/docusate to 1 tab bid -add Bisacodyl 10mg SC once daily (13) Physical deconditioning: - Continue PT/OT. - Discussion held with the pts today via phone: Updated and answered all her questions. Agreeable to palliative care consultation for goals of care, as well as cardiology recommendations. Pt family hesitant to send him to [facility] with previous stay and bad experience but agreeable that they do not have all the help needed at home and are willing for SNF stay for acute pt/ot. Unlikely that the pt would be able to participate in 3hrs of PT at [facility]. - CM to assist with d/c possible (possible on Sunday) (14) DVT prophylaxis: -holding coumadin for now, INR 2.4 Dispo: From home, CM to assist with d/c to [facility] likely within next 1-2 days pending HR control, PT/OT evals. Admission and Anticipated Discharge Date Admission Date: May 04, 2019 Supervising Physician Co-Signing Physician Notes PA Supervision Note: I did not personally see or examine the patient today, but I verified all jang points of STEPH Dorsey's assessment and plan with the following exceptions/additions: None Subjective The patient was seen and examined this morning. Pt states he is doing ok, he is not oriented to time, date or place. He does not know anything in the news or the name of the president. He denies any acute pain or fever or chills overnight. He reports he thinks that he ate, and has chocolate pudding on gown. Review of Systems Review of Systems: Constitutional: No fever, sweats or chills Eyes: No diplopia, no worsening or blurred vision ENT: normal hearing, no trouble swallowing Respiratory: No cough, sputum, dyspnea at rest or on exertion Cardiovascular: No chest pain, tightness or palpitations Abdomen: No pain, nausea, vomiting, diarrhea or constipation Musculoskeletal: No joint pain, calf pain, swelling Neurologic: No weakness, numbness/tingling, or balance problems Psychiatric: No anxiety or depression Skin: No rash or itch Physical Exam Physical Exam: General: awake, alert, no apparent distress, confused throughout exam. Head: Normocephalic, atraumatic ENT: PERRL, EOMI, no pharyngeal exudate, mucous membranes moist Chest: Clear to auscultation, on room air, no adventitious breath sounds Cardiac: Regular rate and rhythm, no murmur, no JVD, normal peripheral pulses, good capillary refill Abdominal: NABS x 4 quadrants, soft, nontender to palpation, no rebound, guarding or tenderness Extremities: Normal inspection, no peripheral edema or erythema, calfs nontender to palpation Psych: Normal mood and affect Neuro: Patient is not alert to time, place, current events. no gross motor deficits, speech is clear. Skin: no rash or erythema Results & Data Results & Data ([facility]) Vital Signs (Past 12 Hours) Vital Signs Temp Pulse Pulse Resp BP Pulse Ox 05/18/19 07:40 36.4 C L 87 18 109/69 99 05/18/19 07:15 75 05/18/19 06:04 115/68 05/18/19 03:56 36.4 C L 80 18 96/62 L 92 05/18/19 00:09 36.4 C L 76 20 112/63 98 05/18/19 00:00 99 H 05/17/19 20:17 36.3 C L 88 20 108/74 92 PG Care Time/CCT Total # of Minutes Spent Total Time Spent with Patient: Total time spent is greater than 50% in coordination of care (as documented) at patient's floor/unit and/or counseling patient: Coding Level of Care Code 02710 Subseq Hosp Care Lvl 3 Diagnoses Acute respiratory failure with hypoxia J96.01 Acute on chronic diastolic heart failure I50.33 RSV (respiratory syncytial virus infection) B97.4 Hypernatremia E87.0 Pneumonia J18.9 Laterality: left Lung location: unspecified part of lung Pneumonia type: due to unspecified organism Sepsis A41.9; R65.20; J96.01 Acute respiratory failure type: with hypoxia Sepsis acute organ dysfunction status: with acute organ dysfunction Sepsis type: sepsis due to unspecified organism Severe sepsis acute organ dysfunction type: acute respiratory failure Severe sepsis shock status: without septic shock Toxic metabolic encephalopathy G92 Rapid atrial fibrillation I48.91 Hypertension I10 Hypertension type: unspecified Demand ischemia I24.8 Dementia F03.90 Dementia behavioral disturbance: without behavioral disturbance Dementia type: unspecified type Ileus K56.7 Physical deconditioning R53.81 DVT prophylaxis Z29.9 (1) Dementia Dementia behavioral disturbance: without behavioral disturbance Dementia type: unspecified type Qualified Code(s): F03.90 - Unspecified dementia without behavioral disturbance (2) Sepsis Acute respiratory failure type: with hypoxia Sepsis acute organ dysfunction status: with acute organ dysfunction Sepsis type: sepsis due to unspecified organism Severe sepsis acute organ dysfunction type: acute respiratory failure Severe sepsis shock status: without septic shock Qualified Code(s): A41.9 - Sepsis, unspecified organism; R65.20 - Severe sepsis without septic shock; J96.01 - Acute respiratory failure with hypoxia (3) Hypertension Hypertension type: unspecified Qualified Code(s): I10 - Essential (primary) hypertension (4) Pneumonia Laterality: left Lung location: unspecified part of lung Pneumonia type: due to unspecified organism Qualified Code(s): J18.9 - Pneumonia, unspecified organism
[2019-05-18] MEDS: RIVASTIGMINE TARTRATE 1.5 MG CAP PO SCH (09:02)
[2019-05-18] MEDS: METOPROLOL TARTRATE 25 MG TAB PO SCH ×2 (09:03→12:14)
[2019-05-18] MEDS: ASPIRIN 81 MG ECTAB PO SCH (09:03)
[2019-05-18] MEDS: dilTIAZem HCL 240 MG CAPCR PO SCH ×2 (09:03→23:33)
[2019-05-18] MEDS: DOCUSATE SODIUM/SENNA 50/8.6MG TAB PO SCH ×2 (09:08→22:43)
[2019-05-18] MEDS: DIGOXIN 0.125 MG TAB PO SCH (17:28)
[2019-05-18] MEDS: METOPROLOL TARTRATE 50 MG TAB PO SCH ×2 (17:29→22:51)
[2019-05-18] MEDS: FAMOTIDINE 20 MG in SYRINGE 3 ML IV SCH (18:11)
[2019-05-18] MEDS: POLYETHYLENE (MIRALAX) 17 GM PACK PO SCH (22:43)
[2019-05-18] MEDS: MEMANTINE HCL 10 MG TAB PO SCH (22:52)
[2019-05-18] MEDS: TAMSULOSIN HCL 0.4 MG CAP PO SCH (23:34)
[2019-05-19] MEDS: DEXTROSE 5% 1,000 ML IV SCH ×3 (00:05→18:26)
[2019-05-19] MEDS: SIMETHICONE 80 MG CHEW PO SCH ×2 (05:50→10:29)
[2019-05-19 06:08] LABS: Hematocrit (blood only) 31.7 % (42-52); Hemoglobin 9.9 g/dL (14.0-18.0); Mean Corpuscular Hemoglobin 29.4 pg (25-34); Mean Corpuscular Hgb Conc 31.2 g/dL (32-36); Mean Corpuscular Volume 94.1 fL (80-100); Mean Platelet Volume 10.9 fL (7.4-10.4); Platelet Count 315 K/uL (130-400); RDW Coefficient of Variation 16.7 % (11.5-14.5); RDW Standard Deviation 56.9 fL (36.4-46.3); Red Blood Count 3.37 M/uL (4.7-6.1); White Blood Count 5.94 K/uL (4.8-10.8)
[2019-05-19 06:49] LABS: Albumin Globulin Ratio 0.6 (0.9-2); Albumin Level 2.4 gm/dl (3.4-5.0); BUN Creatinine Ratio 19.6 (10-20); Bilirubin,Total 0.8 mg/dl (0.2-1); Calcium 8.3 mg/dl (8.5-10.1); Creatinine Clr Calc Pharmacy 55.6 ml/min; Est GFR (African American) 69.6; Est GFR (Non-African American) 60.1; Globulin 4.3 gm/dl (2.5-4.0); Potassium 3.4 mmol/L (3.5-5.1); Total Protein 6.7 gm/dl (6.4-8.2)
[2019-05-19] MEDS: bisacodyL 10 MG SUPP PR SCH (09:26)
[2019-05-19] MEDS: dilTIAZem HCL 240 MG CAPCR PO SCH (09:48)
[2019-05-19] MEDS ORDERED: dilTIAZem HCL 180 MG CAPCR PO ONE (10:00)
[2019-05-19] MEDS: METOPROLOL TARTRATE 50 MG TAB PO SCH ×4 (10:25→21:07)
[2019-05-19] MEDS: DOCUSATE SODIUM/SENNA 50/8.6MG TAB PO SCH ×2 (10:25→21:07)
[2019-05-19] MEDS: FAMOTIDINE 20 MG TAB PO SCH ×2 (10:26→21:09)
[2019-05-19] MEDS: ASPIRIN 81 MG ECTAB PO SCH (10:27)
[2019-05-19] MEDS: RIVASTIGMINE TARTRATE 1.5 MG CAP PO SCH (13:35)
[2019-05-19] MEDS ORDERED: POTASSIUM CHLORIDE 20 MEQ TABCR PO ONE (15:00)
--- NOTE | 2019-05-19 15:18 | Hospitalist Progress Note ---
Date of Service May 19, 2019 Assessment & Plan (1) Acute respiratory failure with hypoxia: -Now resolved on room air -Secondary to RSV infection, suspected bacterial pneumonia and pulmonary edema. -Completed augmentin. -Patient is now on room air, and has negative procalcitonin -appears stable in this regard. (2) Acute on chronic diastolic heart failure: - Suspect rate-related pulmonary edema on initial CXR. - Rate controlled at this time - continue diltiazem, digoxin and metoprolol: Metoprolol was titrated up to 75 mg QID yesterday but lowered today for bradycardia into the 30s - -continue holding lasix, was on D5W overnight for sodium correction but remains slightly elevated, 155 this morning, recheck sodium later this evening, twice daily afterwards. (3) RSV (respiratory syncytial virus infection): - Supportive management. Droplet precautions to be discussed with infection data processing control clerk - certainly no longer acutely ill, has been in hospital for >14 days, but not certain how long droplet for possible shedding (CDC website without clear guidance i could find, UTD suggested most RSV is contact spread moreso than droplet) - await input from infection control. (4) Hypernatremia: -likely was poor intake + diuretics - now improving. Na 148, closer to goal range, safe to close the gap to normal today. continue D5W, slow to 100. (5) Pneumonia: -Multifocal PNA -?Aspiration vs. community acquired vs from RSV. -Switched to PO Augmentin BID for 5 additional days 05/09. This has been complete d. -He has already had significant atypical coverage with Levaquin -Encourage incentive spirometry, flutter, ambulation with fall precautions Last CXR with resolution of previous infiltrates -appears quite stable in this regard. (6) Sepsis: -Resolved -Source RSV +/- bacterial PNA. Blood cultures no growth to date. Urine culture no growth. Sputum culture moderate normal gemma. (7) Toxic metabolic encephalopathy: - Secondary to above infection + prolonged hospital stay in setting of dementia. - supportive care, reorientation as possible -explained to in depth and at length -for SNF placement once able. (8) Rapid atrial fibrillation: -rates overall reasonable - maybe slightly low at rest - back off diltiazem slightly. continue metoprolol -suspect INR staying therapeutic due to prior coumadin + very little to no vitamin K intake until recently -follow -short run of vtach - replace K, follow - but given reassuring echo does not appear to be of clinical significance. (9) Hypertension: - Stable on diltiazem and metoprolol (10) Demand ischemia: - Mild elevation in troponin in setting of a. fib with RVR - now improved (11) Dementia: - Rivastigmine + memantine as an outpatient. - continue (12) Ileus: -SBO ruled out with CT A/P -seems to be resolving - continue to follow. (13) Physical deconditioning: - Continue PT/OT. - for SNF once Na has normalized, once it's clear we can dc droplet. (14) DVT prophylaxis: -holding coumadin for now, follow INR - still therapeutic. Dispo: From home, anticipate SNF in 24-48hrs Admission and Anticipated Discharge Date Admission Date: May 04, 2019 Subjective no meaningful HPI or ROS obtainable. nursing notes no new issues this morning - this afternoon had 20 beat run of vtach (d/w cardiology - no structural heart disease on echo and short run - nothing of concern, rossy since K was low). extensive phone call (~20mins) w - who expressed concerns about him seeming "stuck" - worried about getting him more therapy but initially didn't want him at [facility] due to prior bad experiences, but thought [facility] would be way too much for him, we then discussed asking case management to look in a wider radius at snf - but then noted that she would prefer him to stay local so after all is said and done, she's hesitantly ok with [facility] - just worried about them getting him up, etc. also noted that [facility] cannot take him while still on droplet precautions. Review of Systems Review of Systems: Unobtainable due to cognitive status Physical Exam Physical Exam: gen - awake, disoriented, no distress. heent nc at mmm. cardio reg lungs coarse but overall clear no r/r/w good effort skin no rashes no pallor or icterus neuro no focal deficits. Results & Data Results & Data ([facility]) Vital Signs (Past 12 Hours) Vital Signs Temp Pulse Pulse Resp BP BP Pulse Ox 05/19/19 14:25 106 H 109/72 98 05/19/19 07:00 54 L 05/19/19 05:00 97.3 F L 79 20 125/70 98 PG Care Time/CCT Total # of Minutes Spent Total Time Spent with Patient: Total time spent is greater than 50% in coordina tion of care (as documented) at patient's floor/unit and/or counseling patient: Coding Level of Care Code 35072 Subseq Hosp Care Lvl 3 Diagnoses Acute respiratory failure with hypoxia J96.01 Acute on chronic diastolic heart failure I50.33 RSV (respiratory syncytial virus infection) B97.4 Hypernatremia E87.0 Pneumonia J18.9 Laterality: left Lung location: unspecified part of lung Pneumonia type: due to unspecified organism Sepsis A41.9; R65.20; J96.01 Acute respiratory failure type: with hypoxia Sepsis acute organ dysfunction status: with acute organ dysfunction Sepsis type: sepsis due to unspecified organism Severe sepsis acute organ dysfunction type: acute respiratory failure Severe sepsis shock status: without septic shock Toxic metabolic encephalopathy G92 Rapid atrial fibrillation I48.91 Hypertension I10 Hypertension type: unspecified Demand ischemia I24.8 Dementia F03.90 Dementia behavioral disturbance: without behavioral disturbance Dementia type: unspecified type Ileus K56.7 Physical deconditioning R53.81 DVT prophylaxis Z29.9 (1) Dementia Dementia behavioral disturbance: without behavioral disturbance Dementia type: unspecified type Qualified Code(s): F03.90 - Unspecified dementia without behavioral disturbance (2) Sepsis Acute respiratory failure type: with hypoxia Sepsis acute organ dysfunction status: with acute organ dysfunction Sepsis type: sepsis due to unspecified organism Severe sepsis acute organ dysfunction type: acute respiratory failure Severe sepsis shock status: without septic shock Qualified Code(s): A41.9 - Sepsis, unspecified organism; R65.20 - Severe sepsis without septic shock; J96.01 - Acute respiratory failure with hypoxia (3) Hypertension Hypertension type: unspecified Qualified Code(s): I10 - Essential (primary) hypertension (4) Pneumonia Laterality: left Lung location: unspecified part of lung Pneumonia type: due to unspecified organism Qualified Code(s): J18.9 - Pneumonia, unspecified organism
--- NOTE | 2019-05-19 15:34 | Communication Note ---
Date of Service: May 19, 2019 's listed number not working well - gave [phone] as alternate.
[2019-05-19] MEDS: DIGOXIN 0.125 MG TAB PO SCH (16:25)
[2019-05-19] MEDS ORDERED: dilTIAZem HCL 240 MG CAPCR PO SCH (21:00)
[2019-05-19] MEDS: TAMSULOSIN HCL 0.4 MG CAP PO SCH (21:07)
[2019-05-19] MEDS: dilTIAZem HCL 180 MG CAPCR PO SCH (21:09)
[2019-05-19] MEDS: MEMANTINE HCL 10 MG TAB PO SCH (21:10)
[2019-05-19] MEDS: POLYETHYLENE (MIRALAX) 17 GM PACK PO SCH (21:10)
[2019-05-20] MEDS: DEXTROSE 5% 1,000 ML IV SCH ×3 (00:30→08:00)
[2019-05-20 07:34] LABS: INR 2.7 (0.9-1.1); Prothrombin Time 27.3 Seconds (9.0-12.0)
[2019-05-20] MEDS: DOCUSATE SODIUM/SENNA 50/8.6MG TAB PO SCH ×2 (08:00→20:49)
[2019-05-20 08:01] LABS: BUN Creatinine Ratio 13.8 (10-20); Calcium 8.7 mg/dl (8.5-10.1); Creatinine Clr Calc Pharmacy 57.6 ml/min; Est GFR (African American) 73.3; Est GFR (Non-African American) 63.2; Potassium 3.7 mmol/L (3.5-5.1)
[2019-05-20] MEDS: bisacodyL 10 MG SUPP PR SCH (08:01)
[2019-05-20] MEDS: METOPROLOL TARTRATE 50 MG TAB PO SCH ×4 (08:02→20:48)
[2019-05-20] MEDS: FAMOTIDINE 20 MG TAB PO SCH ×2 (08:03→20:47)
[2019-05-20] MEDS: RIVASTIGMINE TARTRATE 1.5 MG CAP PO SCH (08:04)
[2019-05-20] MEDS: ASPIRIN 81 MG ECTAB PO SCH (08:04)
[2019-05-20] MEDS: dilTIAZem HCL 180 MG CAPCR PO SCH ×2 (08:04→20:48)
--- NOTE | 2019-05-20 16:09 | Hospitalist Progress Note ---
Date of Service May 20, 2019 Assessment & Plan (1) Acute respiratory failure with hypoxia: -Now resolved on room air -Secondary to RSV infection, suspected bacterial pneumonia and pulmonary edema. -Completed augmentin. -Patient is now on room air, and has negative procalcitonin -stable (2) Acute on chronic diastolic heart failure: - Suspect rate-related pulmonary edema on initial CXR. - Rate controlled at this time - continue diltiazem, digoxin and metoprolol: Metoprolol was titrated up to 75 mg QID yesterday but lowered today for bradycardia into the 30s - -continue holding lasix, now off D5W - at time of discharge will need to have day-to-day decisions on fluid balance but favor holding lasix for now and following; follow periodic BMP. (3) RSV (respiratory syncytial virus infection): - Supportive management. Droplet precautions discussed with infection plc controls engineer - certainly no longer acutely ill, has been in hospital for >14 days, they noted actually for RSV never really needed droplet. (4) Hypernatremia: -likely was poor intake + diuretics - now improved. continue to follow - (5) Pneumonia: -Multifocal PNA -?Aspiration vs. community acquired vs from RSV. -Switched to PO Augmentin BID for 5 additional days 05/09. This has been completed. -He has already had significant atypical coverage with Levaquin -Encourage incentive spirometry, flutter, ambulation with fall precautions Last CXR with resolution of previous infiltrates -appears quite stable in this regard. (6) Sepsis: -Resolved -Source RSV +/- bacterial PNA. Blood cultures no growth to date. Urine culture no growth. Sputum culture moderate normal gemma. (7) Toxic metabolic encephalopathy: - Secondary to above infection + prolonged hospital stay in setting of dementia. - supportive care, reorientation as possible -anticipate slow resolution -for SNF placement once able. (8) Rapid atrial fibrillation: -rates overall reasonable - slight reduction in dilt seems to have overall helped with rate control. -suspect INR staying therapeutic due to prior coumadin + very little to no vitamin K intake until recently -follow -short run of vtach - replaced K, follow - but given reassuring echo does not appear to be of clinical significance. does not appear to have recurred. (9) Hypertension: - Stable on diltiazem and metoprolol (10) Demand ischemia: - Mild elevation in troponin in setting of a. fib with RVR - now improved (11) Dementia: - Rivastigmine + memantine as an outpatient. - continue (12) Ileus: -SBO ruled out with CT A/P -seems to be resolving - continue to follow. (13) Physical deconditioning: - Continue PT/OT. - for SNF once Na has normalized, droplet dc'd (14) DVT prophylaxis: -holding coumadin for now, follow INR - still therapeutic. Dispo: From home, anticipate SNF tomorrow Admission and Anticipated Discharge Date Admission Date: May 04, 2019 Subjective feeling well. no new complaints. limited HPI and ROS. can go to SNF tomorrow per case management. called and updated / answered all questions to the best of my ability. she was pleased with his progress when she talked with him earlier. Review of Systems Review of Systems: All systems reviewed & are unremarkable except as noted in HPI & below Physical Exam Physical Exam: awake, pleasant nad. heent nc at mmm. breathing unlabored no accessory muscles good effort. skin no rashes no pallor or icterus. neuro no focal deficits. Results & Data Results & Data ([facility]) Vital Signs (Past 12 Hours) Vital Signs Temp Pulse Pulse Resp BP BP Pulse Ox 05/20/19 13:35 89 113/72 05/20/19 10:45 97.3 F L 78 18 94/64 L 99 05/20/19 08:00 61 PG Care Time/CCT Total # of Minutes Spent Total Time Spent with Patient: Total time spent is greater than 50% in coordination of care (as documented) at patient's floor/unit and/or counseling patient: Coding Level of Care Code 15378 Subseq Hosp Care Lvl 2 Diagnoses Acute respiratory failure with hypoxia J96.01 Acute on chronic diastolic heart failure I50.33 RSV (respiratory syncytial virus infection) B97.4 Hypernatremia E87.0 Pneumonia J18.9 Pneumonia type: due to unspecified organism Laterality: left Lung location: unspecified part of lung Sepsis A41.9; R65.20; J96.01 Sepsis type: sepsis due to unspecified organism Sepsis acute organ dysfunction status: with acute organ dysfunction Severe sepsis acute organ dysfunction type: acute respiratory failure Acute respiratory failure type: with hypoxia Severe sepsis shock status: without septic shock Toxic metabolic encephalopathy G92 Rapid atrial fibrillation I48.91 Hypertension I10 Hypertension type: unspecified Demand ischemia I24.8 Dementia F03.90 Dementia behavioral disturbance: without behavioral disturbance Dementia type: unspecified type Ileus K56.7 Physical deconditioning R53.81 DVT prophylaxis Z29.9 (1) Pneumonia Pneumonia type: due to unspecified organism Laterality: left Lung location: unspecified part of lung Qualified Code(s): J18.9 - Pneumonia, unspecified organism (2) Sepsis Sepsis type: sepsis due to unspecified organism Sepsis acute organ dysfunction status: with acute organ dysfunction Severe sepsis acute organ dysfunction type: acute respiratory failure Acute respiratory failure type: with hypoxia Severe sepsis shock status: without septic shock Qualified Code(s): A41.9 - Sepsis, unspecified organism; R65.20 - Severe sepsis without septic shock; J96.01 - Acute respiratory failure with hypoxia (3) Hypertension Hypertension type: unspecified Qualified Code(s): I10 - Essential (primary) hypertension (4) Dementia Dementia behavioral disturbance: without behavioral disturbance Dementia type: unspecified type Qualified Code(s): F03.90 - Unspecified dementia without behavioral disturbance
[2019-05-20] MEDS ORDERED: POTASSIUM CHLORIDE 10 MEQ TABCR PO STA (16:11)
[2019-05-20] MEDS: DIGOXIN 0.125 MG TAB PO SCH (16:55)
[2019-05-20] MEDS: MEMANTINE HCL 10 MG TAB PO SCH (20:47)
[2019-05-20] MEDS: POLYETHYLENE (MIRALAX) 17 GM PACK PO SCH (20:48)
[2019-05-20] MEDS: TAMSULOSIN HCL 0.4 MG CAP PO SCH (20:48)
[2019-05-21 07:16] LABS: Basophils # (auto) 0.06 K/uL (0-0.2); Basophils % (auto) 1.3 %; Eosinophils # (auto) 0.23 K/uL (0-0.5); Eosinophils % (auto) 4.8 %; Hematocrit (blood only) 33.8 % (42-52); Hemoglobin 10.6 g/dL (14.0-18.0); Immature Granulocytes # (auto) 0.01 K/uL (0.00-0.02); Immature Granulocytes % (auto) 0.2 %; Lymphocytes # (auto) 1.83 K/uL (1.2-3.4); Lymphocytes % (auto) 38.3 %; Mean Corpuscular Hemoglobin 29.4 pg (25-34); Mean Corpuscular Hgb Conc 31.4 g/dL (32-36); Mean Corpuscular Volume 93.6 fL (80-100); Mean Platelet Volume 11.3 fL (7.4-10.4); Monocytes # (auto) 0.25 K/uL (0.11-0.59); Monocytes % (auto) 5.2 %; Neutrophils % (auto) 50.2 %; Platelet Count 333 K/uL (130-400); RDW Coefficient of Variation 16.6 % (11.5-14.5); RDW Standard Deviation 54.6 fL (36.4-46.3); Red Blood Count 3.61 M/uL (4.7-6.1); White Blood Count 4.78 K/uL (4.8-10.8)
[2019-05-21 07:31] LABS: INR 2.3 (0.9-1.1); Prothrombin Time 22.9 Seconds (9.0-12.0)
[2019-05-21 07:41] LABS: BUN Creatinine Ratio 13.3 (10-20); Calcium 8.5 mg/dl (8.5-10.1); Creatinine Clr Calc Pharmacy 59.6 ml/min; Est GFR (African American) 75.7; Est GFR (Non-African American) 65.3; Potassium 3.9 mmol/L (3.5-5.1)
[2019-05-21] MEDS: bisacodyL 10 MG SUPP PR SCH (08:07)
[2019-05-21] MEDS: ASPIRIN 81 MG ECTAB PO SCH (08:07)
[2019-05-21] MEDS: METOPROLOL TARTRATE 50 MG TAB PO SCH ×2 (08:07→12:04)
[2019-05-21] MEDS: FAMOTIDINE 20 MG TAB PO SCH (08:07)
[2019-05-21] MEDS: RIVASTIGMINE TARTRATE 1.5 MG CAP PO SCH (08:08)
[2019-05-21] MEDS: DOCUSATE SODIUM/SENNA 50/8.6MG TAB PO SCH (08:08)
[2019-05-21] MEDS: dilTIAZem HCL 180 MG CAPCR PO SCH (08:08)
--- NOTE | 2019-05-21 18:09 | Discharge Summary ---
Date of Service May 21, 2019 Admission HPI Per Admitting Provider This is a 73-year-old male with past medical history of chronic atrial fibrillation on warfarin, hypercholesterolemia, senile dementia, CAD, CHF the presents today with acute shortness of breath and hypoxia. Patient is unable to provide any history but is at bedside. tells me that the patient has had a significant cough over the past 2 days. She is also ill and had similar symptoms of a dry cough. Patient does have periods of confusion at baseline she felt that these may have been somewhat worse. Overnight, the patient seemed to get more confused and had a hacking cough. She tells me that she called EMS 3 times for the patient. The first was due to some shortness of breath. She notes that he was found to be hypoxic but was not using CPAP as he had been previously directed. He is often noncompliant with this. EMS found that when he took deep breaths with his CPAP on his O2 sats returned to normal and they decided not to transfer him to the hospital at that time. On the second occasion, the patient was confused and trying to climb out of bed. He slid to the floor she was not able to pick him up. EMS was able to transfer back to bed. On the third occasion the patient seemed getting worse in terms of shortness of breath and confusion, at that time she called EMS a third time and he was subsequently transported to the hospital. Of note, reports no recent travel. She tells me that her young grandson has been sick with URI symptoms. On presentation, he was found to be in atrial fibrillation with a rate of 200. He was also febrile to 38.7 C. His O2 sat was only 84% and he was started on BiPAP. Vitals are somewhat improved but heart rate remained in the [id number] range when I arrived to see the patient. Blood pressure was significantly elevated at 180/122 on presentation but has improved with addition of BiPAP and fluids. Patient himself is obtunded and coughing, was not able to give any further history. Patient was presented as a sepsis alert and is now being admitted to the ICU for further management. Principal Diagnosis hypoxic respiratory failure Discharge Exam gen pleasant nad heent nc at mmm breathing unlabored no accessory muscles good effort skin no rashes no pallor or icterus neuro no focal deficits. mental - more conversive seems at least loosely aware of his cirucmstances. Discharge Data Allergies Allergy/AdvReac Type Severity Reaction Status Date / Time isopropyl alcohol Allergy Severe RUBBING Verified 05/18/19 16:23 ALCOHOL - SHORTNESS OF BREATH adhesive Allergy Intermediate BLISTERS Verified 05/04/19 10:18 escitalopram Allergy Unknown UNSURE-DOES Verified 05/04/19 10:18 NOT KNOW lisinopril Allergy Unknown Unknown Verified 05/04/19 10:18 oxycodone AdvReac Mild CONFUSION Verified 05/18/19 16:23 Consultations 05/04/19 10:23 ED Decision to Admit Stat 05/04/19 12:06 Consult Case Management - Discharge Planning Routine Consult Box Tender Routine 05/04/19 12:10 Consult Cardiology Routine 05/05/19 10:01 Consult Palliative Care Routine Ordered Studies 05/05/19 10:02 CT abd pelvis IV con only Urgent Hospital Course (1) Acute respiratory failure with hypoxia: -Now resolved on room air -Secondary to RSV infection, suspected bacterial pneumonia and pulmonary edema. -Completed augmentin. -Patient is now on room air, and has negative procalcitonin -stable for SNF (2) Acute on chronic diastolic heart failure: - Suspect rate-related pulmonary edema on initial CXR. - Rate controlled at this time - continue diltiazem, digoxin and metoprolol: Metoprolol was titrated up to 75 mg QID yesterday but lowered today for bradycardia into the 30s - -continue holding lasix at discharge but anticipate the need to resume it fairly soon - follow fluid status at SNF. should he become dyspnic at all early pulmonary edema would be lead ddx - but since he was just significantly hypernatremic and still appears euvolemic/PO intake just picking up, would hesitate to resume lasix right now. (3) RSV (respiratory syncytial virus infection): - improved. Droplet precautions discussed with infection aoc airspace control officer - certainly no longer acutely ill, has been in hospital for >14 days, they noted actually for RSV never really needed droplet. (4) Hypernatremia: -likely was poor intake + diuretics - now improved. continue to follow - f/u BMP later this week; once able to resume lasix would also follow BMP a few days after that (5) Pneumonia: -Multifocal PNA -?Aspiration vs. community acquired vs from RSV. -Switched to PO Augmentin BID for 5 additional days 05/09. This has been completed. -He has already had significant atypical coverage with Levaquin -Encourage incentive spirometry, flutter, ambulation with fall precautions Last CXR with resolution of previous infiltrates -appears quite stable in this regard. (6) Sepsis: -Resolved -Source RSV +/- bacterial PNA. Blood cultures no growth to date. Urine culture no growth. Sputum culture moderate normal gemma. (7) Toxic metabolic encephalopathy: - Secondary to above infection + prolonged hospital stay in setting of dementia. - supportive care, reorientation as possible -anticipate slow resolution - looks better today than anticipated -for SNF placement w rehab emphasis (8) Rapid atrial fibrillation: -rates overall reasonable -continue to titrate dilt and metoprolol -- suspect as he gets stronger the dosing of meds will probably get closer to his home dosing (240mg dilt daily 50 metoprolol bid) than current dosing (which was even reduced today to 120mg dilt bid and still on 50mg metoprolol qid) -suspect INR staying therapeutic due to prior coumadin + very little to no vitamin K intake until recently -follow rates, follow INR -short run of vtach - replaced K, follow - but given reassuring echo does not appear to be of clinical significance. does not appear to have recurred. pause today d/w cardiology since asymptomatic just reduce meds further and continue to titrate but safe for snf. (9) Hypertension: - Stable on diltiazem and metoprolol (10) Demand ischemia: - Mild elevation in troponin in setting of a. fib with RVR - now improved (11) Dementia: - Rivastigmine + memantine as an outpatient. - continue (12) Ileus: -SBO ruled out with CT A/P -seems to be resolving - continue to follow. (13) Physical deconditioning: - Continue PT/OT. - for SNF today, rehab emphasis (14) DVT prophylaxis: -holding coumadin for now, follow INR - still therapeutic. Dispo: From home, SNF today, goal of home Total Time Total Time Spent Total Time Spent (In Minutes): <30 Discharge Plan Discharge Items Patient Disposition: Transfer [facility] Reason For Visit: SEPSIS Discharge Diagnosis: sepsis related to RSV/secondary pneumonia now improved hypernatremia now resolved (see below) Activity: Resume your previous activity Non-emergency contact: Primary Care Provider Call non-emergency contact if: you have any medication questions and your symptoms worsen Follow-up/Referrals: Fritz Campos, [Primary Care Provider] - Diet: Low Sodium (2gm) Addtl Attending Provider Instructions: RSV/pneumonia -main reason for mary hernández admission - now has resolved, off O2 for days, breathing has been good, completed course of antibiotics days ago diastolic CHF -during hospital stay, only exacerbation of this was heart rate related from tachycardia (see below under afib) -currently lasix has been on hold due to hypernatremia (see below) but anticipate as he improves (especially as PO intake improves) he'll likely need lasix restarted -- of note on med rec lasix is ordered as 20mg daily, but would "actively hold" it until clinically appearing warranted to resume -given that the pneumonia /RSV has long been treated and resolved, should he show any new respiratory symptoms, the first suspicion should be to his CHF hypernatremia -sodium peaked as high as 159 on 05/16; lasix held and D5W given - sodium now has been 141, 143 last few days and off D5W -most likely was lasix pulling off water + poor oral intake -for this reason, lasix is still on "active hold" as above -please repeat BMP 05/22 then as clinically warranted thereafter afib -had some tachycardia - now mostly has been normal rates -was on diltiazem and metoprolol prior to hospitalization - doses have been adjusted up from dilt 240mg daily and metoprolol 50mg bid to his current dilt 180 bid and metoprolol 50mg qid - suspect as he strengthens/improves and the physiologic nidus for tachycardia goes away these doses will likely be able to be adjusted back to home dosing -on coumadin at home - this has been on hold as his INR has remained therapeutic despite no dosing for days - current INR 2.3; suspect he'll need to have dosing resumed in the coming days as his oral intake (and therefore intake of vitamin K) improves - please follow INR per institutional protocols and titrate coumadin accordingly weakness/deconditioning -PT/OT eval and treat ongoing -goal is to get back home with his delirium -multifactorial w prolonged hospital stay, ICU stay, respiratory illness all playing a role; pleasantly his cognition has improved some over last few days, although he will likely still need reorientation/etc Pending Studies at Discharge: No Stand-Alone Forms: My [facility] Skilled Items Patient informed of condition?: Yes DNR: Yes Discharge Level of Care: Skilled Communicable Disease: No Discharge Prognosis: Improving Lines: None Urinary Catheter: No Medications and DC Order Prescriptions: New metoprolol tartrate 50 mg tablet 50 mg PO QID 30 Days Qty: 120 RF: 0 digoxin [Digitek] 125 mcg (0.125 mg) Tablet 0.125 mg PO DAILY@1600 Qty: 30 RF: 0 diltiazem HCl [DILT-XR] 120 mg capsule,ext.rel 24h degradable 120 mg PO BID Qty: 60 RF: 0 Continued tamsulosin [Flomax] 0.4 mg capsule 0.4 mg PO HS Qty: 90 RF: 3 memantine [Namenda] 10 mg tablet 10 mg PO BID Qty: 180 RF: 4 furosemide [Lasix] 20 mg tablet 20 mg PO DAILY Qty: 90 RF: 3 rivastigmine tartrate 3 mg capsule 3 mg PO QAM Qty: 30 RF: 6 triamcinolone acetonide 0.1 % ointment 1 appln topical DAILY PRN (Reason: dry/red) Qty: 60 RF: 0 nitroglycerin 0.4 mg tablet, sublingual 0.4 mg SL Q5M PRN (Reason: chest pain) Qty: 25 RF: 0 vitamin B complex [B Complex-Vitamin B12] tablet 1 tab PO DAILY 30 Days Qty: 30 RF: 6 aspirin [Aspir-81] 81 mg Tablet,Delayed Release (Dr/Ec) 81 mg PO DAILY RF: 0 cholecalciferol (vitamin D3) [Vitamin D3] 1,000 unit Capsule 1,000 unit PO QPM RF: 0 coenzyme Q10 [CoQ-10] 100 mg Capsule 100 mg PO BID RF: 0 cyanocobalamin (vitamin B-12) 1,000 mcg tablet extended release 1,000 mcg PO DAILY RF: 0 acetaminophen [Tylenol Extra Strength] 500 mg Tablet 1,000 mg PO Q6H PRN (Reason: Pain) RF: 0 Discontinued atorvastatin 40 mg tablet 40 mg PO PM Qty: 30 RF: 5 diltiazem HCl 240 mg capsule,extended release 24hr 240 mg PO DAILY 90 Days Qty: 90 RF: 1 metoprolol tartrate 50 mg tablet 50 mg PO BID 90 Days Qty: 180 RF: 3 warfarin [Coumadin] 2 mg tablet 2 mg PO .COMPLEX Qty: 90 RF: 3 Discharge Orders: Discharge Order (Routine); Ordered 05/21/19 Ordered By: Todd Funez Admission Data Admit Date/Time: 05/04/19 11:10 Attending Provider: Todd Funez Admit Provider: Edinson Gates Primary Care Provider: Fritz Campos Other Providers: [facility],[employer] ; [place], ; [place] ; Edinson Gates ; Fritz Alicia ; Parvez Thornton ; Millicent Lopez Other Interventions: Discharge Summary Assessment (RN) Last Done: 05/21/19 11:58 DC Date/Time DO NOT enter until pt leaves facility: 05/21/19 13:04 Coding Level of Care Code D/C Day Management <30 mins Diagnoses Acute respiratory failure with hypoxia J96.01 Acute on chronic diastolic heart failure I50.33 RSV (respiratory syncytial virus infection) B97.4 Hypernatremia E87.0 Pneumonia J18.9 Pneumonia type: due to unspecified organism Laterality: left Lung location: unspecified part of lung Sepsis A41.9; R65.20; J96.01 Sepsis type: sepsis due to unspecified organism Sepsis acute organ dysfunction status: with acute organ dysfunction Severe sepsis acute organ dysfunction type: acute respiratory failure Acute respiratory failure type: with hypoxia Severe sepsis shock status: without septic shock Toxic metabolic encephalopathy G92 Rapid atrial fibrillation I48.91 Hypertension I10 Hypertension type: unspecified Demand ischemia I24.8 Dementia F03.90 Dementia behavioral disturbance: without behavioral disturbance Dementia type: unspecified type Ileus K56.7 Physical deconditioning R53.81 DVT prophylaxis Z29.9
== END 2019-05-21 13:04 | DRG 871 ==
LOC: ED 09:42 → 1E 11:10 → SUATTDRO 11:10 → 1E 11:35 → 2S 05-06 10:15 → 2N 05-17 13:25

== ENCOUNTER 2020-06-04 15:49 | Observation (INO) ==
[2020-06-04] MEDS ORDERED: SODIUM CHLORIDE 0.9% 500 ML IV SCH (16:15)
[2020-06-04 16:38] LABS: Basophils # (auto) 0.03 K/uL (0-0.2); Basophils % (auto) 0.3 %; Eosinophils # (auto) 0.23 K/uL (0-0.5); Eosinophils % (auto) 2.6 %; Hematocrit (blood only) 40.9 % (42-52); Immature Granulocytes # (auto) 0.03 K/uL (0.00-0.02); Immature Granulocytes % (auto) 0.3 %; Lymphocytes # (auto) 1.47 K/uL (1.2-3.4); Lymphocytes % (auto) 16.8 %; Mean Corpuscular Hemoglobin 32.2 pg (25-34); Mean Corpuscular Hgb Conc 34.2 g/dL (32-36); Mean Platelet Volume 10.3 fL (7.4-10.4); Monocytes # (auto) 0.69 K/uL (0.11-0.59); Monocytes % (auto) 7.9 %; Neutrophils % (auto) 72.1 %; Platelet Count 207 K/uL (130-400); RDW Coefficient of Variation 15.1 % (11.5-14.5); RDW Standard Deviation 51.2 fL (36.4-46.3); Red Blood Count 4.35 M/uL (4.7-6.1); White Blood Count 8.75 K/uL (4.8-10.8)
--- NOTE | 2020-06-04 16:38 | Emergency Department Note ---
Impression & Plan Symptomatic bradycardia, Weakness, Acute UTI (urinary tract infection) ED Provider Note NAME: SAMANTHA LENTZ AGE: 74 SEX: M : 1945 ARRIVES VIA: Ambulance INFORMANT: Patient, the prehospital personnel, the patient's significant other ED PROVIDER(S): Benito Howard DO CHIEF COMPLAINT: Bradycardia HPI: The patient is a 74-year-old male who presented to the emergency department by ambulance for an evaluation of bradycardia. The patient was on hospice. He does have a history of CVA, atrial fibrillation, and vascular dementia. The patient's condition was felt to be terminal and the patient was placed on hospice. Recently he was evaluated by the hospice physician. He was found to be bradycardic at that time. His digoxin was stopped last week. The patient's other medications have been continued including his beta-giovany and his blood thinner. The patient was felt to be stable for discharge off of hospice. The patient presents to the emergency department today for bradycardia. The patient was taken to his primary care physician's office today. He needed to have a primary care evaluation so he could have medications as well as home hospital bed ordered. He was noted to have very severe bradycardia and was sent to the emergency department immediately for further evaluation. The patient self offers no complaints. There is been no reported headache. There is been no reported fall. There is been no reported chest pain. The patient does describe some generalized weakness as well as lower extremity swelling. ROS: See above HPI for pertinent positives & negatives. A total of 10 systems reviewed and were otherwise negative. PAST MEDICAL HISTORY: See Below PAST SURGICAL HISTORY: See Below FAMILY HISTORY: See Below SOCIAL HISTORY: See Below HOME MEDICATIONS: See Below ALLERGIES: See Below VITALS: See Below PHYSICAL EXAMINATION: GENERAL: The patient is somewhat listless. He does not appear to be uncomfortable. EYES: The conjunctivae are clear. The pupils are round and reactive. EARS, NOSE, MOUTH AND THROAT: The nose is without any evidence of any deformity. NECK: The neck is nontender and supple. RESPIRATORY: Normal respiratory effort was noted. There was no tachypnea or conversational dyspnea. No significant rales were noted throughout. CARDIOVASCULAR: Bradycardic and irregular heart sounds were noted throughout. GASTROINTESTINAL: The abdomen is soft. Abdomen is nontender. MUSCULOSKELETAL/EXTREMITIES: There is no evidence of gross deformity full range of motion is noted in the hips and shoulders. SKIN: Bilateral pedal edema was noted. NEUROLOGIC: Patient is awake and oriented to person and place. The patient does recognize his significant other. Strength was symmetric but diminished. MEDICAL DECISION MAKING: The patient is a 74-year-old male who presented to the emergency department for an evaluation of slow heart rate. The patient was on hospice because of terminal diagnoses including dementia and atrial fibrillation. The patient was noted by the hospice physician last week to have low heart rate. His digoxin was stopped at that time. He is on other medications which could cause va riability of his heart rate. The patient was discharged from hospice recently and was following up with his primary care physician today. He was found to have significant bradycardia and was sent to the emergency department for further evaluation. I discussed the patient's laboratory and radiographic studies with his significant other. He was also given an antibiotic for presumed urinary tract infection noted on urinalysis. The patient may require some inpatient management to manage his medications and determine if this bradycardia will require any further intervention. He was already starting to have more variability to his heart rate and was not as bradycardic as his initial presentation. I [facility] They have agreed to evaluate the patient in the emergency department for further management and disposition. Triage Nursing notes reviewed. Prior medical records reviewed Vital Signs: reviewed and remarkable for elevated blood pressure. Differential diagnosis: Infection, dehydration, metabolic abnormality, hypo/hyperglycemia, electrolyte disturbance, anemia, hypoxia, cardiac sources, intracerebral event, toxicologic, neurologic, as well as other pathologies. ER treatment provided: See below Diagnostics interpreted by me: ECG: EKG was obtained in the emergency department. My interpretation is atrial fibrillation at 54 bpm. There were no PVCs. Lateral ST depressions were noted. Deep symmetric T wave inversions were noted in the anterior and lateral leads. This was compared to a tracing from May 07, 2019. The T wave inversions are new compared to the previous tracing. Cardiac Monitoring: An order was placed for continuous cardiac monitoring. The m onitor shows a rate of 75 bpm with atrial fibrillation rhythm. Laboratory studies: As stated above and show below. Imaging studies: See below Consultation(s): I discussed this case with Dr. Gibson who is [facility] They will evaluate the patient in the emergency department for further management and disposition. Past Med/Surg History Medical History Acute kidney injury Atrial fibrillation with RVR BPH (benign prostatic hyperplasia) CAD (coronary artery disease) CAD (coronary artery disease) CHF (congestive heart failure) Closed fracture of radial head CVA (cerebral vascular accident) Dementia Gastroesophageal reflux disease Hyperlipidemia Hypertension Ileus Nephrolithiasis BARBARA (obstructive sleep apnea) Small bowel obstruction Type 2 diabetes mellitus Surgical History History of knee replacement History of PTCA Family History Father Stroke Mother Myocardial infarction Aunt Diabetes Family/Other Heart disease Hypertension Nephrolithiasis Denies family history of Prostate cancer Social History Smoking Status: Never smoker Second Hand Exposure: No; Hx Alcohol Use: No Hx Substance Use: No Preferred Language: Divehi Communication Ability: Impaired Visual Impairment: Limited Hearing Ability: Normal Abalone Fisherman Required: No Beliefs That Will Affect Care: Baptism Baptism Beliefs: VOODOO marital status: Current Living Situation: Spouse current occupational status: retired Feels Safe at Home: Yes Childhood Exposure to Second-Hand Smoke: Yes caffeine: No Physical Activity Frequency: Does not Exercise Seatbelt Use: always Sunscreen Use: No (not in the sun) Assistive Devices: None Allergies Allergies Allergy/AdvReac Type Severity Reaction Status Date / Time isopropyl alcohol Allergy Severe RUBBING Verified 06/04/20 19:06 ALCOHOL - SHORTNESS OF BREATH adhesive Allergy Intermediate BLISTERS Verified 06/04/20 19:06 escitalopram Allergy Unknown UNSURE-DOES Verified 06/04/20 19:06 NOT KNOW oxycodone AdvReac Mild CONFUSION Verified 06/04/20 19:06 lisinopril AdvReac Unknown elevated Verified 06/04/20 19:06 creatinine Home Meds Home Medications Medication Instructions Recorded Confirmed cholecalciferol (vitamin D3) 1,000 unit PO QPM 02/13/18 06/04/20 [Vitamin D3] coenzyme Q10 [CoQ-10] 100 mg PO BID 02/13/18 06/04/20 triamcinolone acetonide 0.1 % 1 appln TOPICAL DAILY PRN #60 gm 11/14/18 06/04/20 topical ointment nitroglycerin 0.4 mg sublingual 0.4 mg SL Q5M PRN #25 tab 01/30/19 06/04/20 tablet acetaminophen 500 mg tablet 1,000 mg PO BID tab 06/04/20 06/04/20 aspirin [Aspirin Low Dose] 81 mg PO QAM 06/04/20 06/04/20 diltiazem HCl 120 mg 120 mg PO BID cap 06/04/20 06/04/20 capsule,extended release 24 hr, controlled metoprolol tartrate [Lopressor] 50 mg PO BID 06/04/20 06/04/20 polyethylene glycol 3350 17 17 g PO DAILY 06/04/20 06/04/20 gram/dose oral powder Previous Rx's Medication Instructions Recorded tamsulosin 0.4 mg capsule 0.4 mg PO HS #90 cap 08/08/18 rivastigmine tartrate 3 mg capsule 3 mg PO QAM #30 cap 08/22/19 apixaban 5 mg tablet 5 mg PO BID #180 tab 10/29/19 memantine 10 mg tablet 10 mg PO BID #180 tab 02/09/20 Results & Data (ED) Vital Signs Vital Signs - 24 hr 06/04/20 15:57 06/04/20 16:15 06/04/20 16:17 Temperature 36.9 C Temperature Source Oral Pulse Rate 42 L 51 L 39 L Pulse Rate from SpO2 Sensor Respiratory Rate 18 16 17 Blood Pressure 128/77 131/91 141/86 H Blood Pressure Mean 94 104 104 Pulse Oximetry 98 Oxygen Delivery Method Room Air Sepsis Recent Fever Within 48 Hours No Sepsis New/Unexplained Change in Mental Status No Sepsis Action Taken by Nursing No Action Required 06/04/20 16:20 06/04/20 16:22 06/04/20 16:23 Temperature Temperature Source Pulse Rate 44 L 47 L 47 L Pulse Rate from SpO2 Sensor Respiratory Rate 18 18 21 Blood Pressure 140/76 127/90 139/93 Blood Pressure Mean 97 102 108 Pulse Oximetry Oxygen Delivery Method Sepsis Recent Fever Within 48 Hours Sepsis New/Unexplained Change in Mental Status Sepsis Action Taken by Nursing 06/04/20 16:30 06/04/20 16:31 06/04/20 17:00 Temperature Temperature Source Pulse Rate 54 L 56 L 53 L Pulse Rate from SpO2 Sensor Respiratory Rate 15 15 16 Blood Pressure 142/89 H 140/78 Blood Pressure Mean 106 98 Pulse Oximetry 96 Oxygen Delivery Method Sepsis Recent Fever Within 48 Hours Sepsis New/Unexplained Change in Mental Status Sepsis Action Taken by Nursing 06/04/20 17:15 06/04/20 17:16 06/04/20 17:30 Temperature Temperature Source Pulse Rate 54 L 57 L 67 Pulse Rate from SpO2 Sensor Respiratory Rate 15 14 20 Blood Pressure 120/46 L 128/75 Blood Pressure Mean 70 92 Pulse Oximetry Oxygen Delivery Method Sepsis Recent Fever Within 48 Hours Sepsis New/Unexplained Change in Mental Status Sepsis Action Taken by Nursing 06/04/20 17:31 06/04/20 17:45 06/04/20 17:46 Temperature Temperature Source Pulse Rate 52 L 56 L 61 Pulse Rate from SpO2 Sensor Respiratory Rate 13 14 22 Blood Pressure 140/52 L Blood Pressure Mean 81 Pulse Oximetry Oxygen Delivery Method Sepsis Recent Fever Within 48 Hours Sepsis New/Unexplained Change in Mental Status Sepsis Action Taken by Nursing 06/04/20 17:57 06/04/20 18:00 06/04/20 18:15 Temperature Temperature Source Pulse Rate 56 L 58 L Pulse Rate from SpO2 Sensor 59 L Respiratory Rate 21 17 Blood Pressure 153/85 H 150/86 H Blood Pressure Mean 107 107 Pulse Oximetry 96 98 Oxygen Delivery Method Room Air Room Air Sepsis Recent Fever Within 48 Hours Sepsis New/Unexplained Change in Mental Status Sepsis Action Taken by Nursing 06/04/20 18:30 06/04/20 18:45 06/04/20 18:46 Temperature Temperature Source Pulse Rate 69 69 67 Pulse Rate from SpO2 Sensor 56 L 70 60 Respiratory Rate 22 20 20 Blood Pressure 156/85 H 137/96 Blood Pressure Mean 108 109 Pulse Oximetry 97 96 97 Oxygen Delivery Method Sepsis Recent Fever Within 48 Hours Sepsis New/Unexplained Change in Mental Status Sepsis Action Taken by Nursing 06/04/20 19:00 06/04/20 19:15 06/04/20 19:30 Temperature Temperature Source Pulse Rate 63 61 66 Pulse Rate from SpO2 Sensor 62 64 68 Respiratory Rate 22 20 18 Blood Pressure 140/102 H 165/85 H 149/93 H Blood Pressure Mean 114 111 111 Pulse Oximetry 98 100 97 Oxygen Delivery Method Sepsis Recent Fever Within 48 Hours Sepsis New/Unexplained Change in Mental Status Sepsis Action Taken by Nursing 06/04/20 19:45 06/04/20 20:00 06/04/20 20:15 Temperature Temperature Source Pulse Rate 66 70 69 Pulse Rate from SpO2 Sensor 69 67 69 Respiratory Rate 16 14 17 Blood Pressure 152/82 H 137/96 167/133 H Blood Pressure Mean 105 109 144 Pulse Oximetry 96 98 97 Oxygen Delivery Method Sepsis Recent Fever Within 48 Hours Sepsis New/Unexplained Change in Mental Status Sepsis Action Taken by [facility] Medications Current Medication List: was personally reviewed by me Laboratory Data Attestation: I reviewed the patient's lab results. Result diagrams: 06/04/20 16:20 06/04/20 18:35 Lab Results 06/04/20 06/04/20 06/04/20 Range/Units 16:20 16:20 16:20 WBC 8.75 (4.8-10.8) K/uL RBC 4.35 L (4.7-6.1) M/uL Hgb 14.0 (14.0-18.0) g/dL Hct 40.9 L (42-52) % MCV 94.0 (80-100) fL MCH 32.2 (25-34) pg MCHC 34.2 (32-36) g/dL RDW Std Deviation 51.2 H (36.4-46.3) fL RDW Coeff of Alex 15.1 H (11.5-14.5) % Plt Count 207 (130-400) K/uL MPV 10.3 (7.4-10.4) fL Immature Gran % (Auto) 0.3 % Neut % (Auto) 72.1 % Lymph % (Auto) 16.8 % Stoddard % (Auto) 7.9 % Eos % (Auto) 2.6 % Baso % (Auto) 0.3 % Neut # (Auto) 6.30 (1.4-6.5) K/uL Lymph # (Auto) 1.47 (1.2-3.4) K/uL Stoddard # (Auto) 0.69 H (0.11-0.59) K/uL Eos # (Auto) 0.23 (0-0.5) K/uL Baso # (Auto) 0.03 (0-0.2) K/uL Immature Gran # (Auto) 0.03 H (0.00-0.02) K/uL ESR (0-14) mm/hr PT 10.0 (9.0-12.0) Seconds INR 1.0 (0.9-1.1) APTT (21.0-31.0) Seconds PTT Ratio Sodium 134 L (136-145) mmol/L Potassium (3.5-5.1) mmol/L Chloride 107 (98-107) mmol/L Carbon Dioxide 23 (21-32) mmol/L Anion Gap 5.0 (3-11) BUN 26 H (7-18) mg/dl Creatinine 0.99 (0.6-1.4) mg/dl Est Cr Clr Drug Dosing 72.9 ml/min Est GFR ( Amer) 87.2 Est GFR (Non-Af Amer) 75.2 BUN/Creatinine Ratio 26.4 H (10-20) Glucose 126 H (70-99) mg/dl Calcium 9.4 (8.5-10.1) mg/dl Magnesium (1.8-2.4) mg/dl Total Bilirubin 0.5 (0.2-1) mg/dl AST (15-37) U/L ALT 38 (12-78) U/L Alkaline Phosphatase 124 H (45-117) U/L Total Creatine Kinase (39-308) U/L Troponin I < 0.015 (0-0.045) ng/ml C-Reactive Protein 0.90 H (0-0.29) mg/dl Total Protein 8.2 (6.4-8.2) gm/dl Albumin 3.3 L (3.4-5.0) gm/dl Globulin 4.9 H (2.5-4.0) gm/dl Albumin/Globulin Ratio 0.7 L (0.9-2) TSH 2.940 (0.300-4.500) uIu/ml Specimen Hemolysis Urine Color Urine Appearance (Clear) Urine pH (4.5-7.5) Ur Specific Straughn (1.000-1.030) Urine Protein (Negative) Urine Glucose (UA) (Negative) Urine Ketones (Negative) Urine Blood (Negative) Urine Nitrite (Negative) Urine Bilirubin (Negative) Urine Urobilinogen (Negative) Ur Leukocyte Esterase (Negative) Urine WBC (Auto) (0-5) /hpf Urine RBC (Auto) (0-4) /hpf U Hyaline Cast (Auto) (0-5) /lpf U Epithel Cells (Auto) (0-5) /lpf Urine Bacteria (Auto) (Negative) Digoxin (0.8-2.0) ng/ml COVID-19 Eval Order SARS-CoV-2 (PCR) (Negative) Influenza Type A (PCR) (Neg) Influenza Type B (PCR) (Neg) RSV (RT-PCR) (Neg) 06/04/20 06/04/20 06/04/20 Range/Units 16:20 16:20 16:20 WBC (4.8-10.8) K/uL RBC (4.7-6.1) M/uL Hgb (14.0-18.0) g/dL Hct (42-52) % MCV (80-100) fL MCH (25-34) pg MCHC (32-36) g/dL RDW Std Deviation (36.4-46.3) fL RDW Coeff of Alex (11.5-14.5) % Plt Count (130-400) K/uL MPV (7.4-10.4) fL Immature Gran % (Auto) % Neut % (Auto) % Lymph % (Auto) % Stoddard % (Auto) % Eos % (Auto) % Baso % (Auto) % Neut # (Auto) (1.4-6.5) K/uL Lymph # (Auto) (1.2-3.4) K/uL Stoddard # (Auto) (0.11-0.59) K/uL Eos # (Auto) (0-0.5) K/uL Baso # (Auto) (0-0.2) K/uL Immature Gran # (Auto) (0.00-0.02) K/uL ESR 27 H (0-14) mm/hr PT (9.0-12.0) Seconds INR (0.9-1.1) APTT 23.6 (21.0-31.0) Seconds PTT Ratio 0.9 Sodium (136-145) mmol/L Potassium (3.5-5.1) mmol/L Chloride (98-107) mmol/L Carbon Dioxide (21-32) mmol/L Anion Gap (3-11) BUN (7-18) mg/dl Creatinine (0.6-1.4) mg/dl Est Cr Clr Drug Dosing ml/min Est GFR ( Amer) Est GFR (Non-Af Amer) BUN/Creatinine Ratio (10-20) Glucose (70-99) mg/dl Calcium (8.5-10.1) mg/dl Magnesium (1.8-2.4) mg/dl Total Bilirubin (0.2-1) mg/dl AST (15-37) U/L ALT (12-78) U/L Alkaline Phosphatase (45-117) U/L Total Creatine Kinase (39-308) U/L Troponin I (0-0.045) ng/ml C-Reactive Protein (0-0.29) mg/dl Total Protein (6.4-8.2) gm/dl Albumin (3.4-5.0) gm/dl Globulin (2.5-4.0) gm/dl Albumin/Globulin Ratio (0.9-2) TSH (0.300-4.500) uIu/ml Specimen Hemolysis Urine Color Urine Appearance (Clear) Urine pH (4.5-7.5) Ur Specific Straughn (1.000-1.030) Urine Protein (Negative) Urine Glucose (UA) (Negative) Urine Ketones (Negative) Urine Blood (Negative) Urine Nitrite (Negative) Urine Bilirubin (Negative) Urine Urobilinogen (Negative) Ur Leukocyte Esterase (Negative) Urine WBC (Auto) (0-5) /hpf Urine RBC (Auto) (0-4) /hpf U Hyaline Cast (Auto) (0-5) /lpf U Epithel Cells (Auto) (0-5) /lpf Urine Bacteria (Auto) (Negative) Digoxin 0.2 L (0.8-2.0) ng/ml COVID-19 Eval Order SARS-CoV-2 (PCR) (Negative) Influenza Type A (PCR) (Neg) Influenza Type B (PCR) (Neg) RSV (RT-PCR) (Neg) 06/04/20 06/04/20 06/04/20 Range/Units 16:42 16:42 18:35 WBC (4.8-10.8) K/uL RBC (4.7-6.1) M/uL Hgb (14.0-18.0) g/dL Hct (42-52) % MCV (80-100) fL MCH (25-34) pg MCHC (32-36) g/dL RDW Std Deviation (36.4-46.3) fL RDW Coeff of Alex (11.5-14.5) % Plt Count (130-400) K/uL MPV (7.4-10.4) fL Immature Gran % (Auto) % Neut % (Auto) % Lymph % (Auto) % Stoddard % (Auto) % Eos % (Auto) % Baso % (Auto) % Neut # (Auto) (1.4-6.5) K/uL Lymph # (Auto) (1.2-3.4) K/uL Stoddard # (Auto) (0.11-0.59) K/uL Eos # (Auto) (0-0.5) K/uL Baso # (Auto) (0-0.2) K/uL Immature Gran # (Auto) (0.00-0.02) K/uL ESR (0-14) mm/hr PT (9.0-12.0) Seconds INR (0.9-1.1) APTT (21.0-31.0) Seconds PTT Ratio Sodium (136-145) mmol/L Potassium 4.8 (3.5-5.1) mmol/L Chloride (98-107) mmol/L Carbon Dioxide (21-32) mmol/L Anion Gap (3-11) BUN (7-18) mg/dl Creatinine (0.6-1.4) mg/dl Est Cr Clr Drug Dosing ml/min Est GFR ( Amer) Est GFR (Non-Af Amer) BUN/Creatinine Ratio (10-20) Glucose (70-99) mg/dl Calcium (8.5-10.1) mg/dl Magnesium 2.2 (1.8-2.4) mg/dl Total Bilirubin (0.2-1) mg/dl AST 49 H (15-37) U/L ALT (12-78) U/L Alkaline Phosphatase (45-117) U/L Total Creatine Kinase 66 (39-308) U/L Troponin I (0-0.045) ng/ml C-Reactive Protein (0-0.29) mg/dl Total Protein (6.4-8.2) gm/dl Albumin (3.4-5.0) gm/dl Globulin (2.5-4.0) gm/dl Albumin/Globulin Ratio (0.9-2) TSH (0.300-4.500) uIu/ml Specimen Hemolysis Urine Color Urine Appearance (Clear) Urine pH (4.5-7.5) Ur Specific Straughn (1.000-1.030) Urine Protein (Negative) Urine Glucose (UA) (Negative) Urine Ketones (Negative) Urine Blood (Negative) Urine Nitrite (Negative) Urine Bilirubin (Negative) Urine Urobilinogen (Negative) Ur Leukocyte Esterase (Negative) Urine WBC (Auto) (0-5) /hpf Urine RBC (Auto) (0-4) /hpf U Hyaline Cast (Auto) (0-5) /lpf U Epithel Cells (Auto) (0-5) /lpf Urine Bacteria (Auto) (Negative) Digoxin (0.8-2.0) ng/ml COVID-19 Eval Order [facility]sv at [facility] SARS-CoV-2 (PCR) NEGATIVE (Negative) Influenza Type A (PCR) Negative (Neg) Influenza Type B (PCR) Negative (Neg) RSV (RT-PCR) Negative (Neg) 06/04/20 Range/Units 19:13 WBC (4.8-10.8) K/uL RBC (4.7-6.1) M/uL Hgb (14.0-18.0) g/dL Hct (42-52) % MCV (80-100) fL MCH (25-34) pg MCHC (32-36) g/dL RDW Std Deviation (36.4-46.3) fL RDW Coeff of Alex (11.5-14.5) % Plt Count (130-400) K/uL MPV (7.4-10.4) fL Immature Gran % (Auto) % Neut % (Auto) % Lymph % (Auto) % Stoddard % (Auto) % Eos % (Auto) % Baso % (Auto) % Neut # (Auto) (1.4-6.5) K/uL Lymph # (Auto) (1.2-3.4) K/uL Stoddard # (Auto) (0.11-0.59) K/uL Eos # (Auto) (0-0.5) K/uL Baso # (Auto) (0-0.2) K/uL Immature Gran # (Auto) (0.00-0.02) K/uL ESR (0-14) mm/hr PT (9.0-12.0) Seconds INR (0.9-1.1) APTT (21.0-31.0) Seconds PTT Ratio Sodium (136-145) mmol/L Potassium (3.5-5.1) mmol/L Chloride (98-107) mmol/L Carbon Dioxide (21-32) mmol/L Anion Gap (3-11) BUN (7-18) mg/dl Creatinine (0.6-1.4) mg/dl Est Cr Clr Drug Dosing ml/min Est GFR ( Amer) Est GFR (Non-Af Amer) BUN/Creatinine Ratio (10-20) Glucose (70-99) mg/dl Calcium (8.5-10.1) mg/dl Magnesium (1.8-2.4) mg/dl Total Bilirubin (0.2-1) mg/dl AST (15-37) U/L ALT (12-78) U/L Alkaline Phosphatase (45-117) U/L Total Creatine Kinase (39-308) U/L Troponin I (0-0.045) ng/ml C-Reactive Protein (0-0.29) mg/dl Total Protein (6.4-8.2) gm/dl Albumin (3.4-5.0) gm/dl Globulin (2.5-4.0) gm/dl Albumin/Globulin Ratio (0.9-2) TSH (0.300-4.500) uIu/ml Specimen Hemolysis Urine Color Yellow Urine Appearance Clear (Clear) Urine pH 5.0 (4.5-7.5) Ur Specific Straughn 1.015 (1.000-1.030) Urine Protein Trace H (Negative) Urine Glucose (UA) Negative (Negative) Urine Ketones Negative (Negative) Urine Blood Trace H (Negative) Urine Nitrite Positive A (Negative) Urine Bilirubin Negative (Negative) Urine Urobilinogen Negative (Negative) Ur Leukocyte Esterase 2+ H (Negative) Urine WBC (Auto) >30 H (0-5) /hpf Urine RBC (Auto) 0-4 (0-4) /hpf U Hyaline Cast (Auto) 0 (0-5) /lpf U Epithel Cells (Auto) 5-10 H (0-5) /lpf Urine Bacteria (Auto) 4+ H (Negative) Digoxin (0.8-2.0) ng/ml COVID-19 Eval Order SARS-CoV-2 (PCR) (Negative) Influenza Type A (PCR) (Neg) Influenza Type B (PCR) (Neg) RSV (RT-PCR) (Neg) Administered Medications Discontinued Medications Sodium Chloride (Nss) 500 mls @ 999 mls/hr IV .Q31M ANTONIO Stop: 06/04/20 16:45 Last Infusion: 06/04/20 17:30 Dose: 0 mls/hr Documented by: [id number] Admin: 06/04/20 17:00 Dose: 999 mls/hr Documented by: [id number] Imaging Data Radiologist's Impression: Chest X-Ray 06/04/20 16:01 XR chest 1V portable HISTORY: 74 years-old Male weakness acute weakness COMPARISON: 05/15/2019 TECHNIQUE: Portable AP view the chest FINDINGS: Cardiac silhouette is enlarged. Ill-defined airspace opacities of the mid and lower lung zones. Mild blunting of the costophrenic angles without pneumothorax or large pleural effusion. Mild pulmonary vascular congestion. Degenerative changes of the shoulders and spine. IMPRESSION: 1. Ill-defined pulmonary opacities of the mid and lower lung zones suspicious for pneumonia. 2. Cardiomegaly with pulmonary vascular congestion. ACT 112: Negative or not required by law. The above report was generated using voice recognition software. It may contain grammatical, syntax or spelling errors. Electronically signed by: Jed Vital M.D. 06/04/2020 4:[address] 06/04/20 16:01 CT SCAN OF THE BRAIN WITHOUT IV CONTRAST CLINICAL HISTORY: Change in mental status. COMPARISON STUDY: CT of the brain dated 05/24/2019. TECHNIQUE: Unenhanced axial CT scan of the brain is performed from the vertex to the skull base. A dose lowering technique was utilized adhering to the principles of ALARA. CT DOSE: 614.27 mGy.cm FINDINGS: Brain parenchyma: There are age-related involutional changes noting moderate to advanced confluent subcortical and periventricular microangiopathic change. There is no hemorrhage, mass effect, or evidence of acute territorial ischemia by CT criteria. Aguilar-white matter differentiation is preserved. No extra-axial fluid collection is seen. Ventricles, sulci, cisterns: Prominent secondary to involutional change. Intracranial vasculature: There is atherosclerotic calcification of the cavernous carotid arteries. Calvarium: Unremarkable. Sinuses and mastoids: The visualized paranasal sinuses are clear. The mastoid air cells are well pneumatized. Orbits: The bony orbits are grossly intact. IMPRESSION: There is no hemorrhage, mass effect, or evidence of acute territorial ischemia by CT criteria. ACT 112: Negative or not required by law. Electronically signed by: Emile Neal M.D. 06/04/2020 4:53 PM Discharge Plan Visit Data Chief Complaint: Bradycardia Stated Complaint: A-FIB ED Provider: Benito Howard Discharge Problem: Symptomatic bradycardia, Weakness, Acute UTI (urinary tract infection) Patient Disposition: Being Evaluated by Hospitalist Condition: Good Forms Stand Alone Forms: My [facility] [employer] Prescriptions Prescriptions: No Action tamsulosin [Flomax] 0.4 mg capsule 0.4 mg PO HS Qty: 90 RF: 3 Eliquis 5 mg tablet 5 mg PO BID Qty: 180 RF: 3 memantine [Namenda] 10 mg tablet 10 mg PO BID Qty: 180 RF: 4 triamcinolone acetonide 0.1 % ointment 1 appln topical DAILY PRN (Reason: dry/red) Qty: 60 RF: 0 nitroglycerin 0.4 mg tablet, sublingual 0.4 mg SL Q5M PRN (Reason: chest pain) Qty: 25 RF: 0 diltiazem HCl [DILT-XR] 120 mg capsule,ext.rel 24h degradable 120 mg PO BID RF: 0 polyethylene glycol 3350 [Miralax] 17 gram/dose powder 17 g PO DAILY RF: 0 rivastigmine tartrate 3 mg capsule 3 mg PO QAM Qty: 30 RF: 6 cholecalciferol (vitamin D3) [Vitamin D3] 1,000 unit Capsule 1,000 unit PO QPM RF: 0 coenzyme Q10 [CoQ-10] 100 mg Capsule 100 mg PO BID RF: 0 acetaminophen [Tylenol Extra Strength] 500 mg tablet 1,000 mg PO BID RF: 0 aspirin [Aspirin Low Dose] 81 mg Tablet,Delayed Release (Dr/Ec) 81 mg PO QAM RF: 0 metoprolol tartrate [Lopressor] 50 mg tablet 50 mg PO BID RF: 0 Referrals Referrals: Fritz Campos DO [Primary Care Provider] -
--- NOTE | 2020-06-04 16:55 | CT Scan Report ---
CT SCAN OF THE BRAIN WITHOUT IV CONTRAST CLINICAL HISTORY: Change in mental status. COMPARISON STUDY: CT of the brain dated 05/24/2019. TECHNIQUE: Unenhanced axial CT scan of the brain is performed from the vertex to the skull base. A do se lowering technique was utilized adhering to the principles of ALARA. CT DOSE: 614.27 mGy.cm FINDINGS: Brain parenchyma: There are age-related involutional changes noting moderate to advanced confluent s ubcortical and periventricular microangiopathic change. There is no hemorrhage, mass effect, or evide nce of acute territorial ischemia by CT criteria. Aguilar-white matter differentiation is preserved. No extra-axial fluid collection is seen. Ventricles, sulci, cisterns: Prominent secondary to involutional change. Intracranial vasculature: There is atherosclerotic calcification of the cavernous carotid arteries. Calvarium: Unremarkable. Sinuses and mastoids: The visualized paranasal sinuses are clear. The mastoid air cells are well pneu matized. Orbits: The bony orbits are grossly intact. IMPRESSION: There is no hemorrhage, mass effect, or evidence of acute territorial ischemia by CT payal uriarte. ACT 112: Negative or not required by law. Electronically signed by: Emile Neal M.D. 06/04/2020 4:53 PM
[2020-06-04 17:11] LABS: Alanine Aminotransferase 38 U/L (12-78); Albumin Globulin Ratio 0.7 (0.9-2); Albumin Level 3.3 gm/dl (3.4-5.0); Alkaline Phosphatase 124 U/L (45-117); BUN Creatinine Ratio 26.4 (10-20); Bilirubin,Total 0.5 mg/dl (0.2-1); Blood Urea Nitrogen 26 mg/dl (7-18); Calcium 9.4 mg/dl (8.5-10.1); Carbon Dioxide 23 mmol/L (21-32); Chloride 107 mmol/L (98-107); Creatinine Clr Calc Pharmacy 72.9 ml/min; Est GFR (African American) 87.2; Est GFR (Non-African American) 75.2; Globulin 4.9 gm/dl (2.5-4.0); Glucose 126 mg/dl (70-99); Sodium 134 mmol/L (136-145); Total Protein 8.2 gm/dl (6.4-8.2); Troponin I < 0.015 ng/ml (0-0.045)
[2020-06-04 17:21] LABS: Partial Thromboplastin Ratio 0.9; Partial Thromboplastin Time 23.6 Seconds (21.0-31.0)
[2020-06-04 18:11] LABS: Influenza A virus by PCR Negative (Neg); Influenza B virus by PCR Negative (Neg); RSV by PCR Negative (Neg); SARS CoV2 RNA(COVID-19) InHosp NEGATIVE (Negative)
[2020-06-04 19:12] LABS: Magnesium 2.2 mg/dl (1.8-2.4); Potassium 4.8 mmol/L (3.5-5.1)
[2020-06-04 19:28] LABS: Appearance Urine Clear (Clear); Bacteria Urine Automated 4+ (Negative); Bilirubin Urine Negative (Negative); Blood Urine Trace (Negative); Cast Urine Automated 0 /lpf (0-5); Color Urine Yellow; Glucose Urine UA Negative (Negative); Ketones Urine Negative (Negative); Leukocyte Esterase Urine 2+ (Negative); Nitrite Urine Positive (Negative); Protein Urine Trace (Negative); RBC Urine Automated 0-4 /hpf (0-4); Specific Gravity Urine 1.015 (1.000-1.030); Urobilinogen Urine Negative (Negative); WBC Urine Automated >30 /hpf (0-5)
[2020-06-04] MEDS ORDERED: TRIAMCINOLONE ACET 0.1% OINT 15 GM TUBE TOP PRN (19:32)
[2020-06-04] MEDS ORDERED: NITROGLYCERIN SL 0.4 MG/TAB TAB SL PRN (19:32)
[2020-06-04] MEDS ORDERED: cefTRIAXone SODIUM 1,000 MG/50 ML BAG IV STA (20:20)
[2020-06-04] MEDS ORDERED: NON-FORMULARY MEDICATION (Coenzyme Q10 [Coq-10] 100 mg Capsule) PO SCH (21:00)
[2020-06-04] MEDS ORDERED: TAMSULOSIN HCL 0.4 MG CAP PO SCH (21:00)
[2020-06-04] MEDS ORDERED: CHOLECALCIFEROL 1,000 UNITS 25 MCG TAB PO SCH (21:00)
[2020-06-04] MEDS: MEMANTINE HCL 10 MG TAB PO SCH (22:02)
[2020-06-04] MEDS: APIXABAN 5 MG TABLET PO SCH (22:02)
[2020-06-04] MEDS: METOPROLOL TARTRATE 25 MG TAB PO SCH (22:03)
[2020-06-04] MEDS: dilTIAZem HCL 120 MG CAPCR PO SCH (22:04)
--- NOTE | 2020-06-04 22:18 | History & Physical Report ---
Date of Service June 04, 2020 Assessment & Plan (1) Bradycardia: Patient is having bradycardia Will titrate metoprolol to a lower dose and monitor. will consult cardio for input on a pacemaker. Given patient is demented, will need to discuss with spouse. (2) Type 2 diabetes mellitus: will monitor blood sugar. may consider home meds will check A1C Asymptomatic bacteruria will monitor no symptoms Admission and Anticipated Discharge Date Admission Date: June 04, 2020 History of Present Illness Chief Complaint: bradycardia Primary Care Provider: Fritz Campos, DO 74 yo male who was recently on Hospice for advanced dementia is brought to the hospital for evaluation of his bradycardia. Patient's sppiuse is at bedside and provides history. It appears patient has been stable and is tolerating feedings and is no longer eligible for hospice. Spouse is asking about pacemaker as he had a HR of 35-40 in the PCP office today which prompted the patient and his spouse to come to the ER. It appears patient was on dig but this was discontinued last week due to bradycardia. He was noted to have very severe bradycardia and was sent to the emergency department immediately for further evaluation. The patient self offers no complaints. There is been no reported headache. There is been no reported fall. There is been no reported chest pain. The patient does describe some generalized weakness as well as lower extremity swelling. Allergies Allergy/AdvReac Type Severity Reaction Status Date / Time isopropyl alcohol Allergy Severe RUBBING Verified 06/04/20 19:06 ALCOHOL - SHORTNESS OF BREATH adhesive Allergy Intermediate BLISTERS Verified 06/04/20 19:06 escitalopram Allergy Unknown UNSURE-DOES Verified 06/04/20 19:06 NOT KNOW oxycodone AdvReac Mild CONFUSION Verified 06/04/20 19:06 lisinopril AdvReac Unknown elevated Verified 06/04/20 19:06 creatinine Home Medications Medication Instructions Recorded Confirmed Type cholecalciferol (vitamin D3) 1,000 unit PO QPM 02/13/18 06/04/20 History [Vitamin D3] coenzyme Q10 [CoQ-10] 100 mg PO BID 02/13/18 06/04/20 History tamsulosin 0.4 mg capsule 0.4 mg PO HS #90 cap 08/08/18 06/04/20 Rx triamcinolone acetonide 0.1 % 1 appln TOPICAL DAILY PRN #60 gm 11/14/18 06/04/20 History topical ointment nitroglycerin 0.4 mg sublingual 0.4 mg SL Q5M PRN #25 tab 01/30/19 06/04/20 History tablet rivastigmine tartrate 3 mg capsule 3 mg PO QAM #30 cap 08/22/19 06/04/20 Rx apixaban 5 mg tablet 5 mg PO BID #180 tab 10/29/19 06/04/20 Rx memantine 10 mg tablet 10 mg PO BID #180 tab 02/09/20 06/04/20 Rx acetaminophen 500 mg tablet 1,000 mg PO BID tab 06/04/20 06/04/20 History aspirin [Aspirin Low Dose] 81 mg PO QAM 06/04/20 06/04/20 History diltiazem HCl 120 mg 120 mg PO BID cap 06/04/20 06/04/20 History capsule,extended release 24 hr, controlled polyethylene glycol 3350 17 17 g PO DAILY 06/04/20 06/04/20 History gram/dose oral powder metoprolol tartrate 25 mg PO BID #30 tab 06/05/20 Rx Past Med/Surg History Medical History Acute kidney injury Atrial fibrillation with RVR BPH (benign prostatic hyperplasia) CAD (coronary artery disease) CAD (coronary artery disease) CHF (congestive heart failure) Closed fracture of radial head CVA (cerebral vascular accident) Dementia Gastroesophageal reflux disease Hyperlipidemia Hypertension Ileus Nephrolithiasis BARBARA (obstructive sleep apnea) Small bowel obstruction Type 2 diabetes mellitus Surgical History History of knee replacement History of PTCA Family History Father Stroke Mother Myocardial infarction Aunt Diabetes Family/Other Heart disease Hypertension Nephrolithiasis Denies family history of Prostate cancer Social History Smoking Status: Never smoker Second Hand Exposure: No; Hx Alcohol Use: No Hx Substance Use: No Preferred Language: Kazakh Communication Ability: Impaired Visual Impairment: Limited Hearing Ability: Normal Spareribs Trimmer Required: No Beliefs That Will Affect Care: None marital status: Current Living Situation: Spouse current occupational status: retired Other Information That Helps Us Care for You: No Feels Safe at Home: Yes Safety Concerns: Feels Safe At This Time Childhood Exposure to Second-Hand Smoke: Yes caffeine: No Physical Activity Frequency: Does not Exercise Seatbelt Use: always Sunscreen Use: No (not in the sun) Assistive Devices: Denture - Upper, Denture - Lower and Glasses Review of Systems Review of Systems: Unobtainable due to cognitive status Physical Exam Constitutional: WD/WN, vitals as above Eyes: PERRL, conjunctivae normal, anicteric sclerae ENMT: external ear and nose normal, oropharynx normal Neck: trachea midline, no thyromegaly Respiratory: normal respiratory effort, lungs clear to auscultation Cardiovascular: Rate/Rhythm: + irregularly irregular rate controlled Gastrointestinal (Abdomen): normal bowel sounds, soft, nontender, no hepatosplenomegaly Musculoskeletal: Head/Neck/Chest: + head abnormal to inspection and normocephalic Skin: no rashes, warm and dry Neurologic: PERRL, EOMI, accommodation nl, no face palsy, no dysarthria Psychiatric: Orientation: alert, oriented to person and cooperative Lymphatic: no cervical or axillary lymphadenopathy Results & Data Results & Data ([facility]) Vital Signs (Past 12 Hours) Vital Signs Temp Pulse Pulse Resp BP BP Pulse Ox 06/04/20 21:11 70 06/04/20 21:02 36.7 C 71 20 160/85 H 98 06/04/20 20:30 64 16 152/90 H 97 06/04/20 20:15 69 17 167/133 H 97 06/04/20 20:00 70 14 137/96 98 06/04/20 19:45 66 16 152/82 H 96 06/04/20 19:30 66 18 149/93 H 97 06/04/20 19:15 61 20 165/85 H 100 06/04/20 19:00 63 22 140/102 H 98 06/04/20 18:46 67 20 97 06/04/20 18:45 69 20 137/96 96 06/04/20 18:30 69 22 156/85 H 97 06/04/20 18:15 58 L 17 150/86 H 98 06/04/20 18:00 56 L 21 153/85 H 96 06/04/20 17:46 61 22 140/52 L 06/04/20 17:45 56 L 14 06/04/20 17:31 52 L 13 06/04/20 17:30 67 20 128/75 06/04/20 17:16 57 L 14 120/46 L 06/04/20 17:15 54 L 15 06/04/20 17:00 53 L 16 140/78 96 06/04/20 16:31 56 L 15 142/89 H 06/04/20 16:30 54 L 15 06/04/20 16:23 47 L 21 139/93 06/04/20 16:22 47 L 18 127/90 06/04/20 16:20 44 L 18 140/76 06/04/20 16:17 39 L 17 141/86 H 06/04/20 16:15 51 L 16 131/91 06/04/20 15:57 36.9 C 42 L 18 128/77 98 PG Care Time/CCT Total # of Minutes Spent Total Time Spent with Patient: Total time spent is greater than 50% in coordination of care (as documented) at patient's floor/unit and/or counseling patient: Coding Level of Care Code 85163 OBS Care - Level 2 Diagnoses Bradycardia R00.1 Type 2 diabetes mellitus E11.9
[2020-06-04] MEDS ORDERED: PNEUMOCOCCAL POLYSACCHARIDES 25 MCG/0.5 ML VIAL/SYR IM ONE (22:42)
[2020-06-04] MEDS ORDERED: INFLUENZA ADMINISTRATION CHARGE ONE (22:42)
[2020-06-04] MEDS ORDERED: INFLUENZA VACCINE HIGH DOSE 65+ 0.7 ML SYR IM ONE (22:42)
[2020-06-04] MEDS ORDERED: PNEUMOCOCCAL ADMINISTRATION CHARGE ONE (22:42)
--- NOTE | 2020-06-05 06:51 | Electrocardiogram Report ---
Test Reason : Blood Pressure : / mmHG Vent. Rate : 054 BPM Atrial Rate : 357 BPM P-R Int : 000 ms QRS Dur : 082 ms QT Int : 516 ms P-R-T Axes : 000 -13 147 degrees QTc Int : 489 ms Atrial fibrillation with slow ventricular response Voltage criteria for left ventricular hypertrophy Prolonged QT Abnormal ECG When compared with ECG of 07-MAY-2019 02:18, Vent. rate has decreased BY 73 BPM T wave amplitude has increased in Inferior leads T wave inversion now evident in Anterior leads Confirmed by Nate Tesfaye ([id number]) on 06/05/2020 6:50:32 AM Referred By: Confirmed By:Nate Tesfaye
[2020-06-05 07:10] LABS: BUN Creatinine Ratio 25.4 (10-20); Calcium 9.4 mg/dl (8.5-10.1); Creatinine Clr Calc Pharmacy 81.2 ml/min; Est GFR (African American) 102.2; Est GFR (Non-African American) 88.2; Magnesium 2.2 mg/dl (1.8-2.4); Potassium 4.2 mmol/L (3.5-5.1)
[2020-06-05 07:48] LABS: Estimated Average Glucose 151 mg/dl; Hemoglobin A1C 6.9 % (4.5-5.6)
[2020-06-05] MEDS: dilTIAZem HCL 120 MG CAPCR PO SCH (08:50)
[2020-06-05] MEDS: APIXABAN 5 MG TABLET PO SCH (08:50)
[2020-06-05] MEDS: METOPROLOL TARTRATE 25 MG TAB PO SCH (08:51)
[2020-06-05] MEDS: MEMANTINE HCL 10 MG TAB PO SCH (08:52)
[2020-06-05] MEDS ORDERED: ASPIRIN 81 MG ECTAB PO SCH (09:00)
[2020-06-05] MEDS ORDERED: ACETAMINOPHEN 500 MG TAB PO SCH (09:00)
[2020-06-05] MEDS ORDERED: RIVASTIGMINE TARTRATE 1.5 MG CAP PO SCH (09:00)
[2020-06-05] MEDS ORDERED: POLYETHYLENE (MIRALAX) 17 GM PACK PO SCH (09:00)
--- NOTE | 2020-06-05 12:30 | Cardiology Consultation ---
Date of Consultation June 05, 2020 Assessment & Plan (1) Bradycardia: He presented with atrial fibrillation and slow ventricular rates. In the past he was on more aggressive rate control with not only beta-blockade, calcium channel blockade but also digoxin. This had recently been stopped. With a reduction in his metoprolol dose his heart rate appears to have returned to normal. He was not notably symptomatic in any event. This may be due to his relatively sedentary lifestyle. I do not think there is any indication for a pacemaker currently. It is also unclear what his intervention status would be and whether they will continue to adopt a palliative approach for his ongoing c are. I think it would be safe to discharge him on his current regimen which includes diltiazem extended release 120 mg daily and metoprolol tartrate 25 mg twice daily. His heart rate can be monitored on an outpatient basis. If he continues to have lower heart rates or any symptoms associated with low heart rates, his medical therapy can be reduced further. (2) Atrial fibrillation with RVR: His elevated heart rates occurred during his last hospitalization. He was quite sick at that time. I suspect that the slower heart rates were seeing now are simply related to improved clinical status and ongoing aggressive rate control with multiple agents. He he is in atrial fibrillation all the time. I think his medications can be better titrated to a normal heart rate. I think the current regimen and dosing appears adequate. This may need to be adjusted further over time. He is on the appropriate dose of apixaban for stroke risk reduction. I do not believe he requires aspirin in addition to apixaban. History of Present Illness Reason for Consultation: Bradycardia Requesting Physician: Arthur Attending Physician: Filemon Gibson History of Present Illness The patient is a 74-year-old gentleman with history of permanent atrial fibrillation who was sent to the emergency room with bradycardia. Patient was actually admitted to this hospital approximately 1 year ago and at that time and an element of sepsis. His improvement with limited he is actually discharged to outpatient hospice. Recently, the patient appears to have stabilized there and there is some interest in removing him from hospice. He presented to his primary care physician's office yesterday in order to discuss certain issues but was found to be severely bradycardic and sent to the emergency room. No symptoms reported. The patient does not recall the events of yesterday. While he is very pleasant and answers questions appropriately he has impaired memory. He has not recall any symptoms. He has not been aware of any palpitations. He states that he is ambulatory around his residence. He denies limiting dyspnea. He has not had symptoms of chest pain. He denies dizziness or lightheadedness. He reports a good appetite. Allergies Allergy/AdvReac Type Severity Reaction Status Date / Time isopropyl alcohol Allergy Severe RUBBING Verified 06/04/20 19:06 ALCOHOL - SHORTNESS OF BREATH adhesive Allergy Intermediate BLISTERS Verified 06/04/20 19:06 escitalopram Allergy Unknown UNSURE-DOES Verified 06/04/20 19:06 NOT KNOW oxycodone AdvReac Mild CONFUSION Verified 06/04/20 19:06 lisinopril AdvReac Unknown elevated Verified 06/04/20 19:06 creatinine Home Medications Medication Instructions Recorded Confirmed Type cholecalciferol (vitamin D3) 1,000 unit PO QPM 02/13/18 06/07/20 History [Vitamin D3] coenzyme Q10 [CoQ-10] 100 mg PO BID 02/13/18 06/07/20 History tamsulosin 0.4 mg capsule 0.4 mg PO HS #90 cap 08/08/18 06/07/20 Rx triamcinolone acetonide 0.1 % 1 appln TOPICAL DAILY PRN #60 gm 11/14/18 06/07/20 History topical ointment nitroglycerin 0.4 mg sublingual 0.4 mg SL Q5M PRN #25 tab 01/30/19 06/07/20 History tablet rivastigmine tartrate 3 mg capsule 3 mg PO QAM #30 cap 08/22/19 06/07/20 Rx apixaban 5 mg tablet 5 mg PO BID #180 tab 10/29/19 06/07/20 Rx memantine 10 mg tablet 10 mg PO BID #180 tab 02/09/20 06/07/20 Rx acetaminophen 500 mg tablet 1,000 mg PO BID tab 06/04/20 06/07/20 History aspirin [Aspirin Low Dose] 81 mg PO QAM 06/04/20 06/07/20 History diltiazem HCl 120 mg 120 mg PO BID cap 06/04/20 06/07/20 History capsule,extended release 24 hr, controlled polyethylene glycol 3350 17 17 g PO DAILY 06/04/20 06/07/20 History gram/dose oral powder metoprolol tartrate 25 mg PO BID #30 tab 06/05/20 06/07/20 Rx Hospital Bed See Rx Instructions .ROUTE 06/08/20 Rx .COMPLEX 365 Days #1 ea NS Lift Chair See Rx Instructions .ROUTE 06/08/20 Rx .COMPLEX #1 ea miscellaneous medical supply 1 ea MISCELLANEOUS .COMPLEX #1 ea 06/08/20 Rx NS miscellaneous medical supply #1 ea 06/09/20 Rx miscellaneous medical supply 1 ea .ROUTE DAILY #1 ea 06/09/20 Rx Patient History Medical History Acute kidney injury Atrial fibrillation with RVR BPH (benign prostatic hyperplasia) CAD (coronary artery disease) CAD (coronary artery disease) CHF (congestive heart failure) Closed fracture of radial head CVA (cerebral vascular accident) Dementia Gastroesophageal reflux disease Hyperlipidemia Hypertension Ileus Nephrolithiasis BARBARA (obstructive sleep apnea) Small bowel obstruction Type 2 diabetes mellitus Surgical History History of knee replacement History of PTCA Family History Father Stroke Mother Myocardial infarction Aunt Diabetes Family/Other Heart disease Hypertension Nephrolithiasis Denies family history of Prostate cancer Social History Smoking Status: Never smoker Second Hand Exposure: No; Hx Alcohol Use: No Hx Substance Use: No Preferred Language: Serbian Communication Ability: Impaired Visual Impairment: Limited Hearing Ability: Normal Program Aide Required: No Beliefs That Will Affect Care: None marital status: Current Living Situation: Spouse current occupational status: retired Feels Safe at Home: Yes Childhood Exposure to Second-Hand Smoke: Yes caffeine: No Physical Activity Frequency: Does not Exercise Seatbelt Use: always Sunscreen Use: No (not in the sun) Assistive Devices: Denture - Upper, Denture - Lower and Glasses Review of Systems Review of Systems: All systems reviewed & are unremarkable except as noted in HPI & below Physical Exam Physical Exam: The patient is alert and oriented. Mood and affect appeared normal. He answered all questions appropriately. Forgetful. Poor memory. HEENT: Pupils are equal and reactive to light and accommodation. Extraocular movements are intact. The sclerae are anicteric. Neuro: Cranial nerves intact Neck: Patient's neck is supple. He has palpable carotid pulses bilaterally without bruits on auscultation. There is no evidence of jugular venous distention. The thyroid is not enlarged. Lungs: Clear to auscultation bilaterally. He has good air movement without use of accessory muscles. No rales wheezes or rhonchi. Cardiac: Heart demonstrates an irregular rhythm. Normal heart rate.. Normal S1 and S2. No murmurs on examination. Pulses: The patient has palpable radial pulses bilaterally that are equal in intensity Extremities: There was no evidence of hypoperfusion. There is no cyanosis or clubbing. There is no edema. Skin: I did not appreciate any rashes on examination today. Results & Data ([facility]) Vital Signs (Past 12 Hours) Vital Signs Temp Pulse Resp BP Pulse Ox 06/05/20 11:35 36.8 C 82 18 154/77 H 96 06/05/20 07:33 36.4 C L 78 18 167/95 H 97 06/05/20 03:22 36.4 C L 62 18 147/68 H 95 Laboratory Results Abnormal Lab Results 06/04/20 06/04/20 06/04/20 16:20 16:20 16:20 WBC 8.75 RBC 4.35 L Hgb 14.0 Hct 40.9 L MCV 94.0 MCH 32.2 MCHC 34.2 RDW Std Deviation 51.2 H RDW Coeff of Alex 15.1 H Plt Count 207 MPV 10.3 Immature Gran % (Auto) 0.3 Neut % (Auto) 72.1 Lymph % (Auto) 16.8 Spencer % (Auto) 7.9 Eos % (Auto) 2.6 Baso % (Auto) 0.3 Neut # (Auto) 6.30 Lymph # (Auto) 1.47 Spencer # (Auto) 0.69 H Eos # (Auto) 0.23 Baso # (Auto) 0.03 Immature Gran # (Auto) 0.03 H ESR PT 10.0 INR 1.0 APTT PTT Ratio Sodium 134 L Potassium Chloride 107 Carbon Dioxide 23 Anion Gap 5.0 BUN 26 H Creatinine 0.99 Est Cr Clr Drug Dosing 72.9 Est GFR ( Amer) 87.2 Est GFR (Non-Af Amer) 75.2 BUN/Creatinine Ratio 26.4 H Glucose 126 H Estimat Average Glucose Hemoglobin A1c Calcium 9.4 Magnesium Total Bilirubin 0.5 AST ALT 38 Alkaline Phosphatase 124 H Total Creatine Kinase Troponin I < 0.015 C-Reactive Protein 0.90 H Total Protein 8.2 Albumin 3.3 L Globulin 4.9 H Albumin/Globulin Ratio 0.7 L TSH 2.940 Specimen Hemolysis Urine Color Urine Appearance Urine pH Ur Specific [place] Urine Protein Urine Glucose (UA) Urine Ketones Urine Blood Urine Nitrite Urine Bilirubin Urine Urobilinogen Ur Leukocyte Esterase Urine WBC (Auto) Urine RBC (Auto) U Hyaline Cast (Auto) U Epithel Cells (Auto) Urine Bacteria (Auto) Digoxin COVID-19 Eval Order SARS-CoV-2 (PCR) Influenza Type A (PCR) Influenza Type B (PCR) RSV (RT-PCR) 06/04/20 06/04/20 06/04/20 16:20 16:20 16:20 WBC RBC Hgb Hct MCV MCH MCHC RDW Std Deviation RDW Coeff of Alex Plt Count MPV Immature Gran % (Auto) Neut % (Auto) Lymph % (Auto) Spencer % (Auto) Eos % (Auto) Baso % (Auto) Neut # (Auto) Lymph # (Auto) Spencer # (Auto) Eos # (Auto) Baso # (Auto) Immature Gran # (Auto) ESR 27 H PT INR APTT 23.6 PTT Ratio 0.9 Sodium Potassium Chloride Carbon Dioxide Anion Gap BUN Creatinine Est Cr Clr Drug Dosing Est GFR ( Amer) Est GFR (Non-Af Amer) BUN/Creatinine Ratio Glucose Estimat Average Glucose Hemoglobin A1c Calcium Magnesium Total Bilirubin AST ALT Alkaline Phosphatase Total Creatine Kinase Troponin I C-Reactive Protein Total Protein Albumin Globulin Albumin/Globulin Ratio TSH Specimen Hemolysis Urine Color Urine Appearance Urine pH Ur Specific [place] Urine Protein Urine Glucose (UA) Urine Ketones Urine Blood Urine Nitrite Urine Bilirubin Urine Urobilinogen Ur Leukocyte Esterase Urine WBC (Auto) Urine RBC (Auto) U Hyaline Cast (Auto) U Epithel Cells (Auto) Urine Bacteria (Auto) Digoxin 0.2 L COVID-19 Eval Order SARS-CoV-2 (PCR) Influenza Type A (PCR) Influenza Type B (PCR) RSV (RT-PCR) 06/04/20 06/04/20 06/04/20 16:42 16:42 18:35 WBC RBC Hgb Hct MCV MCH MCHC RDW Std Deviation RDW Coeff of Alex Plt Count MPV Immature Gran % (Auto) Neut % (Auto) Lymph % (Auto) Spencer % (Auto) Eos % (Auto) Baso % (Auto) Neut # (Auto) Lymph # (Auto) Spencer # (Auto) Eos # (Auto) Baso # (Auto) Immature Gran # (Auto) ESR PT INR APTT PTT Ratio Sodium Potassium 4.8 Chloride Carbon Dioxide Anion Gap BUN Creatinine Est Cr Clr Drug Dosing Est GFR ( Amer) Est GFR (Non-Af Amer) BUN/Creatinine Ratio Glucose Estimat Average Glucose Hemoglobin A1c Calcium Magnesium 2.2 Total Bilirubin AST 49 H ALT Alkaline Phosphatase Total Creatine Kinase 66 Troponin I C-Reactive Protein Total Protein Albumin Globulin Albumin/Globulin Ratio TSH Specimen Hemolysis Urine Color Urine Appearance Urine pH Ur Specific [place] Urine Protein Urine Glucose (UA) Urine Ketones Urine Blood Urine Nitrite Urine Bilirubin Urine Urobilinogen Ur Leukocyte Esterase Urine WBC (Auto) Urine RBC (Auto) U Hyaline Cast (Auto) U Epithel Cells (Auto) Urine Bacteria (Auto) Digoxin COVID-19 Eval Order CovFluRsv at [facility] SARS-CoV-2 (PCR) NEGATIVE Influenza Type A (PCR) Negative Influenza Type B (PCR) Negative RSV (RT-PCR) Negative 06/04/20 06/05/20 06/05/20 19:13 06:26 06:26 WBC RBC Hgb Hct MCV MCH MCHC RDW Std Deviation RDW Coeff of Alex Plt Count MPV Immature Gran % (Auto) Neut % (Auto) Lymph % (Auto) Spencer % (Auto) Eos % (Auto) Baso % (Auto) Neut # (Auto) Lymph # (Auto) Spencer # (Auto) Eos # (Auto) Baso # (Auto) Immature Gran # (Auto) ESR PT INR APTT PTT Ratio Sodium 140 Potassium 4.2 Chloride 108 H Carbon Dioxide 25 Anion Gap 7.0 BUN 20 H Creatinine 0.81 Est Cr Clr Drug Dosing 81.2 Est GFR ( Amer) 102.2 Est GFR (Non-Af Amer) 88.2 BUN/Creatinine Ratio 25.4 H Glucose 123 H Estimat Average Glucose 151 Hemoglobin A1c 6.9 H Calcium 9.4 Magnesium 2.2 Total Bilirubin AST ALT Alkaline Phosphatase Total Creatine Kinase Troponin I C-Reactive Protein Total Protein Albumin Globulin Albumin/Globulin Ratio TSH Specimen Hemolysis Urine Color Yellow Urine Appearance Clear Urine pH 5.0 Ur Specific [place] 1.015 Urine Protein Trace H Urine Glucose (UA) Negative Urine Ketones Negative Urine Blood Trace H Urine Nitrite Positive A Urine Bilirubin Negative Urine Urobilinogen Negative Ur Leukocyte Esterase 2+ H Urine WBC (Auto) >30 H Urine RBC (Auto) 0-4 U Hyaline Cast (Auto) 0 U Epithel Cells (Auto) 5-10 H Urine Bacteria (Auto) 4+ H Digoxin COVID-19 Eval Order SARS-CoV-2 (PCR) Influenza Type A (PCR) Influenza Type B (PCR) RSV (RT-PCR) PG Care Time/CCT Total # of Minutes Spent Total Time Spent with Patient: Total time spent is greater than 50% in coordination of care (as documented) at patient's floor/unit and/or counseling patient: Coding Level of Care Code 15892 Initial Inpt Care Lvl 3 Diagnoses Bradycardia R00.1 Atrial fibrillation with RVR I48.91
--- NOTE | 2020-06-11 10:50 | Discharge Summary ---
Date of Service June 05, 2020 Admission HPI Per Admitting Provider 74 yo male who was recently on Hospice for advanced dementia is brought to the hospital for evaluation of his bradycardia. Patient's sppiuse is at bedside and provides history. It appears patient has been stable and is tolerating feedings and is no longer eligible for hospice. Spouse is asking about pacemaker as he had a HR of 35-40 in the PCP office today which prompted the patient and his spouse to come to the ER. It appears patient was on dig but this was discontinued last week due to bradycardia. He was noted to have very severe bradycardia and was sent to the emergency department immediately for further evaluation. The patient self offers no complaints. There is been no reported headache. There is been no reported fall. There is been no reported chest pain. The patient does describe some generalized weakness as well as lower extremity swelling. Principal Diagnosis bradycardia Discharge Exam Constitutional: WD/WN, vitals as above Eyes: PERRL, conjunctivae normal, anicteric sclerae ENMT: external ear and nose normal, oropharynx normal Neck: trachea midline, no thyromegaly Respiratory: normal respiratory effort, lungs clear to auscultation Cardiovascular: Rate/Rhythm: + irregularly irregular rate controlled Gastrointestinal (Abdomen): normal bowel sounds, soft, nontender, no hep atosplenomegaly Musculoskeletal: Head/Neck/Chest: head normal to inspection and normocephalic Skin: no rashes, warm and dry Neurologic: PERRL, EOMI, accommodation nl, no face palsy, no dysarthria Psychiatric: Orientation: alert, oriented to person and cooperative Lymphatic: no cervical or axillary lymphadenopathy Discharge Data Allergies Allergy/AdvReac Type Severity Reaction Status Date / Time isopropyl alcohol Allergy Severe RUBBING Verified 06/04/20 19:06 ALCOHOL - SHORTNESS OF BREATH adhesive Allergy Intermediate BLISTERS Verified 06/04/20 19:06 escitalopram Allergy Unknown UNSURE-DOES Verified 06/04/20 19:06 NOT KNOW oxycodone AdvReac Mild CONFUSION Verified 06/04/20 19:06 lisinopril AdvReac Unknown elevated Verified 06/04/20 19:06 creatinine Consultations 06/04/20 18:14 ED Decision to Admit Stat 06/04/20 19:29 Consult Cardiology Routine Ordered Studies 06/04/20 16:01 CT head/brain wo con Stat Hospital Course (1) Bradycardia: Patient is having bradycardia Improved after titrating metoprolol to a lower dose. No indication for pacemaker as of now. updated spouse. (2) Type 2 diabetes mellitus: will resume home meds. Asymptomatic bacteruria will monitor no symptoms Total Time Total Time Spent Total Time Spent (In Minutes): 32 Total Time Includes: Examination of the Patient, Discharge Planning and Medication Reconciliation Discharge Plan Discharge Items Patient Disposition: Home - Home Health Services Reason For Visit: BRADYCARDIA Discharge Diagnosis: BRADYCARDIA Condition on Discharge: Good Activity: Resume your previous activity Non-emergency contact: Primary Care Provider Call non-emergency contact if: you have any medication questions Follow-up/Referrals: Fritz Campos DO [Primary Care Provider] - 06/14/20 10:00 am Diet: Carb Consistent or DM2 and Low Sodium (2gm) Addtl Attending Provider Instructions: You were found to have a low heart rate. During your time here, we decreased your metoprolol to 25 mg twice a day. You tolerated this change and your heart rate has maintained between 60-80. You were seen by [facility] Cardiology and will hold off pacemaker given how stable your heart rate has been. will recommend followup with PCP AND [facility] cardiology. Pending Studies at Discharge: No Stand-Alone Forms: My [facility] [employer], Smoking Cessation Medications and DC Order Prescriptions: New metoprolol tartrate 25 mg Tablet 25 mg PO BID Qty: 30 RF: 0 Continued tamsulosin [Flomax] 0.4 mg capsule 0.4 mg PO HS Qty: 90 RF: 3 Eliquis 5 mg tablet 5 mg PO BID Qty: 180 RF: 3 memantine [Namenda] 10 mg tablet 10 mg PO BID Qty: 180 RF: 4 triamcinolone acetonide 0.1 % ointment 1 appln topical DAILY PRN (Reason: dry/red) Qty: 60 RF: 0 nitroglycerin 0.4 mg tablet, sublingual 0.4 mg SL Q5M PRN (Reason: chest pain) Qty: 25 RF: 0 diltiazem HCl [DILT-XR] 120 mg capsule,ext.rel 24h degradable 120 mg PO BID RF: 0 polyethylene glycol 3350 [Miralax] 17 gram/dose powder 17 g PO DAILY RF: 0 rivastigmine tartrate 3 mg capsule 3 mg PO QAM Qty: 30 RF: 6 cholecalciferol (vitamin D3) [Vitamin D3] 1,000 unit Capsule 1,000 unit PO QPM RF: 0 coenzyme Q10 [CoQ-10] 100 mg Capsule 100 mg PO BID RF: 0 acetaminophen [Tylenol Extra Strength] 500 mg tablet 1,000 mg PO BID RF: 0 aspirin [Aspirin Low Dose] 81 mg Tablet,Delayed Release (Dr/Ec) 81 mg PO QAM RF: 0 Discontinued metoprolol tartrate [Lopressor] 50 mg tablet 50 mg PO BID RF: 0 No Action Hospital Bed Misc See Rx Instructions .ROUTE .COMPLEX 365 Days Qty: 1 RF: 0 miscellaneous medical supply Tray 1 ea miscellaneous .COMPLEX Qty: 1 RF: 0 Lift Chair Misc See Rx Instructions .ROUTE .COMPLEX Qty: 1 RF: 0 (DME) miscellaneous medical supply Package See Rx Instructions .ROUTE .MEDSUPPLY Qty: 1 RF: 0 Mattress (Air or other) Misc 1 ea .Route DAILY Qty: 1 RF: 0 Discharge Orders: Discharge Order (Routine); Ordered 06/05/20 Ordered By: Fielmon Gibson Admission Data Admit Date/Time: 06/04/20 19:28 Attending Provider: Filemon Gibson Admit Provider: Filemon Gibson Primary Care Provider: Fritz Campos Other Providers: Filemon Gibson ; Rubio Thomas ; [facility] Other Interventions: Discharge Summary Assessment (RN) Last Done: 06/05/20 16:58 Coding Level of Care Code D/C Day Management >30 mins Diagnoses Bradycardia R00.1 Type 2 diabetes mellitus E11.9
== END 2020-06-05 19:42 | disposition home health service (06) ==
LOC: 2N 15:49 → ED 15:49 → 2N 20:37

== ENCOUNTER 2020-07-06 11:42 | Inpatient (IN) ==
[2020-07-06] MEDS ORDERED: ATROPINE SO4 1 MG/ML 1ML VIAL ONE (11:52)
[2020-07-06] MEDS ORDERED: SODIUM CHLORIDE 0.9% 500 ML IV STA (12:28)
[2020-07-06] MEDS ORDERED: ATROPINE SULFATE 0.1 MG/ML 5ML SYR IV ONE (12:29)
[2020-07-06 12:43] LABS: Basophils # (auto) 0.02 K/uL (0-0.2); Basophils % (auto) 0.2 %; Eosinophils # (auto) 0.17 K/uL (0-0.5); Eosinophils % (auto) 1.7 %; Hematocrit (blood only) 38.6 % (42-52); Hemoglobin 12.7 g/dL (14.0-18.0); Immature Granulocytes # (auto) 0.02 K/uL (0.00-0.02); Immature Granulocytes % (auto) 0.2 %; Lymphocytes # (auto) 1.21 K/uL (1.2-3.4); Mean Corpuscular Hgb Conc 32.9 g/dL (32-36); Mean Corpuscular Volume 97.2 fL (80-100); Mean Platelet Volume 10.1 fL (7.4-10.4); Monocytes # (auto) 0.49 K/uL (0.11-0.59); Monocytes % (auto) 4.9 %; Neutrophils # (auto) 8.19 K/uL (1.4-6.5); Platelet Count 198 K/uL (130-400); RDW Coefficient of Variation 14.5 % (11.5-14.5); RDW Standard Deviation 51.3 fL (36.4-46.3); Red Blood Count 3.97 M/uL (4.7-6.1)
[2020-07-06 12:45] LABS: iSTAT Hemoglobin 12.9 g/dl (14.0-18.0); iSTAT Ionized Calcium 1.24 mmol/l (1.12-1.32); iSTAT Potassium 4.4 mmol/L (3.3-5.0)
[2020-07-06] MEDS ORDERED: ATROPINE SULFATE 0.1 MG/ML 10ML SYR IV STA ×2 (12:45→15:34)
[2020-07-06] MEDS ORDERED: ATROPINE SULFATE 0.1 MG/ML 5ML SYR IV STA (12:45)
[2020-07-06 12:53] LABS: Partial Thromboplastin Time 25.3 Seconds (21.0-31.0); Prothrombin Time 10.6 Seconds (9.0-12.0)
[2020-07-06 13:00] LABS: Alanine Aminotransferase 19 U/L (12-78); Albumin Level 3.1 gm/dl (3.4-5.0); Aspartate Aminotransferase 20 U/L (15-37); Blood Urea Nitrogen 16 mg/dl (7-18); Calcium 9.2 mg/dl (8.5-10.1); Carbon Dioxide 26 mmol/L (21-32); Chloride 104 mmol/L (98-107); Est GFR (African American) 77.6 ml/min; Glucose 125 mg/dl (70-99); Potassium 4.4 mmol/L (3.5-5.1); Sodium 136 mmol/L (136-145)
[2020-07-06 13:06] LABS: Appearance Urine Slightly Cloudy (Clear); Bilirubin Urine Negative (Negative); Blood Urine 3+ (Negative); Color Urine Yellow; Glucose Urine UA Negative (Negative); Ketones Urine Negative (Negative); Leukocyte Esterase Urine 3+ (Negative); Nitrite Urine Positive (Negative); Protein Urine 2+ (Negative); Urobilinogen Urine Negative (Negative); pH Urine 6.5 (4.5-7.5)
[2020-07-06 13:10] LABS: Albumin Globulin Ratio 0.7 (0.9-2); Alkaline Phosphatase 138 U/L (45-117); Bilirubin,Total 0.7 mg/dl (0.2-1); Globulin 4.4 gm/dl (2.5-4.0); Total Protein 7.5 gm/dl (6.4-8.2); Troponin I < 0.015 ng/ml (0-0.045)
[2020-07-06 13:15] LABS: WBC Urine >30 /hpf (0-5)
[2020-07-06 13:16] LABS: Bacteria Urine 1+ (Negative); Epithelial Cell Urine 0-5 /lpf (0-5); RBC Urine >30 /hpf (0-4)
--- NOTE | 2020-07-06 13:59 | History & Physical Report ---
Date of Service July 06, 2020 Assessment & Plan (1) Symptomatic bradycardia: Patient had a significant event with a symptomatic bradycardia. His beta- giovany calcium channel giovany will be held he will have atropine at the ready if he becomes symptomatic again consideration of glucagon to help reverse effects of beta-giovany if needed release to try. Cardiology be consulted. After William did see the patient in the ER he did discuss possible pacemaker implantation with the . The is considering this. The patient's does confirm with me that they do not want any heroic measures including life support. I specifically asked if she wanted him to have the pacemaker once ag ain and she said she does not want life support but she will agree to him having medications if his heart rate does get slow again (2) Atrial fibrillation: Patient with history of atrial fibrillation on apixaban typically rate controlled with diltiazem and metoprolol last admission, 06/05/2020, patient did have a bradycardic event medications were adjusted with good resolution of his bradycardia.. Last echocardiogram in our system was from April 2019 showing normal LV size with hyperdynamic systolic function moderate left atrial dilatation no significant valvular abnormalities mild pulmonary hypertension and A. fib was documented. Patient will continue on his apixaban at this time unless its determined he would benefit from implantable pacemaker then discussion will have a cardiology about need to hold this for procedure (3) Acute urinary retention: Patient has a history of urinary retention and likely has an acute UTI on presentation with an abnormal urinalysis showing bacteria white cell count elevated positive nitrate 3+ blood patient will be started on antibiotics initially the emergency department considering Levaquin with last urine culture from May 2020 with Klebsiella pneumonia which was sensitive to everything with the only resistance being nitrofurantoin previous also Enterococcus faecalis from July 2019 pansensitive Patient only had a recent urinary catheter placed in conjunction with significant constipation. He was there today for the 1 week follow-up to have the catheter removed. The patient's is in support of having the catheter removed and does not wish him to have a long-term catheter at home as it was causing him significant discomfort. We will treat his urinary tract infection at this time and then consider having him have a voiding trial prior to discharge. (4) Hemiplegia affecting left nondominant side: Patient is significantly debilitated from a previous stroke he is a DNR his does care for him at home and her wishes are to continue treating him in an aggressive fashion short of life support sustaining measures or CPR History of Present Illness Primary Care Provider: Fritz Campos DO 74-year-old male who arrives from urology office. Prior to urology visit he was in his normal state of health. The patient was there for routine urological checkup however prior to the checkup the patient became unresponsive. EMS was called. Reportedly he had no palpable pulse and on the monitor he was bradycardic. EMS placed an interosseous access device to try to give him medications however it was very painful and difficult to use. Patient reportedly was externally paced upon arrival to the emergency department and in significant discomfort. According to the ER physician after IV access was established the patient was given a milligram of atropine with good pickup of his heart rate and blood pressure. The transcutaneous pacing was stopped the patient's pulse now ranges in the 40-50 range but his blood pressure is maintained at 101/61 or so. Initial laboratories are relatively unremarkable with the exception of likely a urinary tract infection present on admission. Of note the patient is on rate insulin see medications including diltiazem 120 extended release twice a day and metoprolol tartrate 25 twice a day he is anticoagulated with apixaban for history of atrial fibrillation. Patient is admitted to evaluate his bradycardic episode cardiology consultation be undertaken Allergies Allergy/AdvReac Type Severity Reaction Status Date / Time isopropyl alcohol Allergy Severe RUBBING Verified 07/06/20 13:21 ALCOHOL - SHORTNESS OF BREATH adhesive Allergy Intermediate BLISTERS Verified 07/06/20 13:21 escitalopram Allergy Unknown UNSURE-DOES Verified 07/06/20 13:21 NOT KNOW oxycodone AdvReac Mild CONFUSION Verified 07/06/20 13:21 lisinopril AdvReac Unknown elevated Verified 07/06/20 13:21 creatinine Home Medications Medication Instructions Recorded Confirmed Type cholecalciferol (vitamin D3) 1,000 unit PO QPM 02/13/18 07/06/20 History [Vitamin D3] coenzyme Q10 [CoQ-10] 100 mg PO BID 02/13/18 07/06/20 History tamsulosin 0.4 mg capsule 0.4 mg PO HS #90 cap 08/08/18 07/06/20 Rx triamcinolone acetonide 0.1 % 1 appln TOPICAL DAILY PRN #60 gm 11/14/18 07/06/20 History topical ointment nitroglycerin 0.4 mg sublingual 0.4 mg SL Q5M PRN #25 tab 01/30/19 07/06/20 History tablet apixaban 5 mg tablet 5 mg PO BID #180 tab 10/29/19 07/06/20 Rx diltiazem HCl 120 mg 120 mg PO BID cap 06/04/20 07/06/20 History capsule,extended release 24 hr, controlled polyethylene glycol 3350 17 17 g PO DAILY 06/04/20 07/06/20 History gram/dose oral powder metoprolol tartrate 25 mg PO BID #30 tab 06/05/20 07/06/20 Rx acetaminophen 500 mg tablet 1,000 mg PO BID #120 tab 06/14/20 07/06/20 Rx aspirin 81 mg tablet,delayed 81 mg PO QAM #30 tab 06/14/20 07/06/20 Rx release lidocaine 4 % topical patch 1 patch TOPICAL DAILY PRN 06/14/20 07/06/20 History memantine 10 mg tablet 10 mg PO BID #180 tab 06/14/20 07/06/20 Rx miscellaneous medical supply #1 ea 06/14/20 07/06/20 Rx miscellaneous medical supply #1 ea 06/14/20 07/06/20 Rx miscellaneous medical supply #1 ea 06/14/20 07/06/20 Rx miscellaneous medical supply #1 ea 06/14/20 07/06/20 Rx rivastigmine tartrate 3 mg capsule 3 mg PO QAM #30 cap 06/14/20 07/06/20 Rx Past Med/Surg History Medical History Acute kidney injury Atrial fibrillation with RVR BPH (benign prostatic hyperplasia) CAD (coronary artery disease) CAD (coronary artery disease) CHF (congestive heart failure) Closed fracture of radial head CVA (cerebral vascular accident) Dementia Gastroesophageal reflux disease Hemiplegia affecting left nondominant side Hyperlipidemia Hypertension Ileus Nephrolithiasis BARBARA (obstructive sleep apnea) Small bowel obstruction Type 2 diabetes mellitus Surgical History History of knee replacement History of PTCA Family History Father Stroke Mother Myocardial infarction Aunt Diabetes Family/Other Heart disease Hypertension Nephrolithiasis Denies family history of Prostate cancer Social History Smoking Status: Unknown if ever smoked Second Hand Exposure: No; Hx Alcohol Use: No Hx Substance Use: No Preferred Language: Slovenian Communication Ability: Effective Visual Impairment: Limited Hearing Ability: Normal Intermodal Dispatcher Required: No Beliefs That Will Affect Care: None marital status: Current Living Situation: Spouse current occupational status: retired Other Information That Helps Us Care for You: No Feels Safe at Home: Yes Safety Concerns: Feels Safe At This Time Childhood Exposure to Second-Hand Smoke: Yes caffeine: No Physical Activity Frequency: Does not Exercise Seatbelt Use: always Sunscreen Use: No (not in the sun) Assistive Devices: Denture - Upper, Denture - Lower and Glasses Review of Systems Review of Systems: Mild distress and fatigue no headache, blurry or double vision limited speech no chest pain, pressure or palpitations no shortness of breath, cough or wheezes no abdominal pain, nausea or vomiting, diarrhea or constipation no dysuria, hematuria or frequency left shoulder pain no back pain, CVA tenderness or radicular pain no bruising, bleeding or rashes left hemiparesis no complaints of anxiety or depression.. Physical Exam Physical Exam: The patient appeared chronically ill and debilitated Vital signs as documented. Head exam is normocephalic atraumatic Neck is without JVD, thyromegaly, or carotid bruits. Lungs are diminished at bases Cardiac exam, bradycardic irregular. No murmurs, rubs or gallops. Abdominal exam reveals normal bowel sounds, soft non tender, no masses Extremities are nonedematous and both pedal pulses are present Neurologic exam is alert and can speak in short 1 or 2 word sentences. He has baseline hemiplegia and is bradykinetic in his movements Skin is without bruises or rashes Psychologically is with transferred Parkinson's disease and dementia Results & Data Results & Data ([facility]) Vital Signs (Past 12 Hours) Vital Signs Pulse Resp BP Pulse Ox 07/06/20 12:45 43 L 22 101/61 97 07/06/20 12:34 45 L 21 97/54 L 97 07/06/20 12:30 42 L 22 97 07/06/20 12:27 42 L 22 85/53 L 98 07/06/20 12:15 39 L 22 94 07/06/20 12:11 31 L 14 180/128 H 98 07/06/20 12:00 80 95 07/06/20 11:49 57 L 19 180/128 H 97 07/06/20 11:48 79 32 H EKG shows a narrow complex bradycardic rhythm with no visible P waves considered to be atrial fibrillation with slow ventricular rate PG Care Time/CCT Total # of Minutes Spent Total Time Spent with Patient: Total time spent is greater than 50% in coordination of care (as documented) at patient's floor/unit and/or counseling patient: Coding Level of Care Code 29761 Initial Inpt Care Lvl 3 Diagnoses Symptomatic bradycardia R00.1 Atrial fibrillation I48.91 Acute urinary retention R33.8 Hemiplegia affecting left nondominant side G81.94
[2020-07-06] MEDS ORDERED: levoFLOXacin/D5W 500 MG/100 ML BAG IV STA (14:02)
--- NOTE | 2020-07-06 14:32 | XRay Report ---
XR chest 1V portable CLINICAL HISTORY: heart block COMPARISON STUDY: June 04, 2020 FINDINGS: No pneumothorax. No pleural effusion. No large infiltrates or consolidative lesions are seen. Mild diffuse prominence of pulmonary intersti tium is again seen and not significantly changed since prior. Cardiomediastinal silhouette is mildly enlarged. Mild pulmonary vascular congestion is seen.. Aorta is calcified. Evaluation is slightly limited due to overlying virus and resuscitation pad. Osseous structures: unremarkable IMPRESSION: 1. CHF pattern with possible pulmonary edema. ACT 112: Negative or not required by law. The above report was generated using voice recognition software. It may contain grammatical, syntax o r spelling errors. Electronically signed by: Melissa Luque DO 07/06/2020 2:31 PM
--- NOTE | 2020-07-06 15:01 | Emergency Department Note ---
Impression & Plan Symptomatic bradycardia, Acute UTI (urinary tract infection), Acute hypotension ED Provider Note INFORMANT: EMS, patient's . ED PROVIDER(S): Ricardo Daniel MD CHIEF COMPLAINT: Bradycardia PLAN: Disposition: Admitted Condition: Guarded Outpatient prescription management: none Referral: None MEDICAL DECISION MAKING: Patient presented via EMS due to profound bradycardia and hypotension. He was being paced. Reviewing his prehospital ECG it appeared to be in a atrial fibrillation with slow ventricular response. The patient had poor IV access. He had a IO in the left shoulder that was very painful with infusion attempt. An IV was established by nursing in his left hand. I did place an IV in his right AC under ultrasound guidance. The patient was given a milligram of at ropine and the pacing was stopped. His heart rate increased into the 40s. Blood pressure was adequate. He had an i-STAT performed and this did not reveal any acute pathology. Urinalysis and formal blood work was also obtained. The patient had his blood pressure decreased slightly. He was given additional 1/2 mg of atropine. He was also given a normal saline bolus of 500 mL. The patient had improvement of his vital signs. Mental status improved as well. He continued to deny headache, chest pain, or abdominal pain. He gradually was returning closer to baseline per the . Urinalysis was concerning for infection. Other blood work did not reveal any significant abnormalities. The patient has had a history of UTI. Culture results reviewed with the ER pharmacist and IV Levaquin was recommended due to prior results. The patient was given a dose of IV Levaquin. Consultation was made with Dr. Thomas of cardiology to discuss the profound bradycardia. He agreed with brandie holbrook and did evaluate the patient in the ER. I also consulted with Dr. Crenshaw of the hospitalist service. He to will evaluate the patient in the ER. The patient will be admitted by internal medicine and cardiology will follow. Internal medicine asked for the IO to be removed prior to transfer to the floor and this was done. Triage Nursing notes reviewed and agree them. Vital Signs: reviewed and remarkable for profound bradycardia Differential diagnosis: Infection, dehydration, metabolic abnormality, hypo/hyperglycemia, electrolyte disturbance, anemia, hypoxia, cardiac sources, intracerebral event, toxicologic, neurologic, as well as other pathologies. Diagnostics interpreted by me: ECG: Twelve-lead ECG reveals atrial fibrillation with slow ventricular response at 40 bpm. There are anterolateral T wave inversions. When compared to prior ECG of June 04 there is no significant change. Cardiac Monitoring: Cardiac monitoring ordered by me: The patient was placed on continuous cardiac monitoring and observed. It revealed a paced rhythm initi ally and then after patient was discontinued atrial fibrillation with slow ventricular response. Rate was 40 to 50 bpm. Imaging studies: Chest x-ray revealed mild cardiomegaly. Mild congestive change. HPI: The patient is a 74 year old male who presents to the Emergency Room via EMS for severe bradycardia and hypotension. This started this morning before his scheduled urology visit. Patient's states that he was rehabilitating from the stroke sided paralysis. Resides at home. His cared for by home nursing and . He has been in his normal state of health over the last few days. Today with clinically pale, diaphoretic and less responsive. It was reported the patient did not have a strong pulse or blood pressure. EMS was summoned. The patient was attended to by EMS and he was found to have a heart rate around 30 and a blood pressure of 60. The monitor was concerning for complete heart block. The patient was placed on the pacer pads and paced. Capture was obtained and had improvement of his blood pressure. Clinically he seemed to improve somewhat as well. The patient had blood pressure up into the 80s. His IV access was very difficult and IO line was placed in the left shoulder. He did receive a dose of lidocaine due to discomfort with infusion. He also received Versed to help with his pacing. He was still altered at that point. He was coming around patient denied any chest or abdominal pain. No headache. History is limited secondary to the patient medical acuity. ROS: See above HPI for pertinent positives & negatives. Limited secondary to medical acuity. PAST MEDICAL HISTORY:See Below , atrial fibrillation, stroke PAST SURGICAL HISTORY:See Below, FAMILY HISTORY:See Below SOCIAL HISTORY:See Below, lives with HOME MEDICATIONS:See Below ALLERGIES:See Below VITALS:See Below PHYSICAL EXAMINATION: GENERAL: Sleepy but arousable. ill-appearing, in no distress HENT: Normocephalic, atraumatic. Oropharynx unremarkable. EYES: Normal conjunctiva. Sclera non-icteric. NECK: Inspection normal. Non-tender. Supple. No nuchal rigidity. FROM. No masses. RESPIRATORY: Clear to auscultation. No wheezes. No rales. Normal respiratory e ffort. CARDIAC: Severely bradycardic rate. Irregular rhythm. No murmurs. No rubs. Extremities warm and well perfused. Pulses equal. No JVD. GI: Soft, non-distended. No tenderness to palpation. No rebound or guarding. No masses. RECTAL: Deferred. MUSCULOSKELETAL: Atraumatic. Chest examination reveals no tenderness. No joint edema. LOWER EXTREMITIES: Calves are equal size bilaterally and non-tender. Trace edema. No discoloration. NEURO: Altered sensorium. No sensory deficits noted. Left-sided hemiparesis noted. SKIN: No rash or jaundice noted. CC: I have personally spent greater than 80 minutes of critical care time in the direct management of this patient. This includes bedside care, interpretation of diagnostic studies, and testing, discussion with consultants, patient, and family members, and other required patient management activities. These minutes are in excess of all separately billable procedures. PROCEDURE: PERIPHERAL IV INSERTION BY ULTRASOUND: An 18-gauge IV was placed and the patient's right antecubital fossa by me using the standard sterile technique under ultrasound guidance. No complications. The patient tolerated the procedure well. Ricardo Daniel MD Past Med/Surg History Medical History Acute kidney injury Atrial fibrillation with RVR BPH (benign prostatic hyperplasia) CAD (coronary artery disease) CAD (coronary artery disease) CHF (congestive heart failure) Closed fracture of radial head CVA (cerebral vascular accident) Dementia Gastroesophageal reflux disease Hemiplegia affecting left nondominant side Hyperlipidemia Hypertension Ileus Nephrolithiasis BARBARA (obstructive sleep apnea) Small bowel obstruction Type 2 diabetes mellitus Surgical History History of knee replacement History of PTCA Family History Father Stroke Mother Myocardial infarction Aunt Diabetes Family/Other Heart disease Hypertension Nephrolithiasis Denies family history of Prostate cancer Social History Smoking Status: Unknown if ever smoked Second Hand Exposure: No; Hx Alcohol Use: No Hx Substance Use: No Preferred Language: Greek Communication Ability: Effective Visual Impairment: Limited Hearing Ability: Normal Net Fisher Required: No Beliefs That Will Affect Care: None marital status: Current Living Situation: Spouse current occupational status: retired Other Information That Helps Us Care for You: No Feels Safe at Home: Yes Safety Concerns: Feels Safe At This Time Childhood Exposure to Second-Hand Smoke: Yes caffeine: No Physical Activity Frequency: Does not Exercise Seatbelt Use: always Sunscreen Use: No (not in the sun) Assistive Devices: Denture - Upper, Denture - Lower and Glasses Allergies Allergies Allergy/AdvReac Type Severity Reaction Status Date / Time isopropyl alcohol Allergy Severe RUBBING Verified 07/06/20 13:21 ALCOHOL - SHORTNESS OF BREATH adhesive Allergy Intermediate BLISTERS Verified 07/06/20 13:21 escitalopram Allergy Unknown UNSURE-DOES Verified 07/06/20 13:21 NOT KNOW oxycodone AdvReac Mild CONFUSION Verified 07/06/20 13:21 lisinopril AdvReac Unknown elevated Verified 07/06/20 13:21 creatinine Home Meds Home Medications Medication Instructions Recorded Confirmed cholecalciferol (vitamin D3) 1,000 unit PO QPM 02/13/18 07/06/20 [Vitamin D3] coenzyme Q10 [CoQ-10] 100 mg PO BID 02/13/18 07/06/20 triamcinolone acetonide 0.1 % 1 appln TOPICAL DAILY PRN #60 gm 11/14/18 07/06/20 topical ointment nitroglycerin 0.4 mg sublingual 0.4 mg SL Q5M PRN #25 tab 01/30/19 07/06/20 tablet diltiazem HCl 120 mg 120 mg PO BID cap 06/04/20 07/06/20 capsule,extended release 24 hr, controlled polyethylene glycol 3350 17 17 g PO DAILY 06/04/20 07/06/20 gram/dose oral powder lidocaine 4 % topical patch 1 patch TOPICAL DAILY PRN 06/14/20 07/06/20 Previous Rx's Medication Instructions Recorded tamsulosin 0.4 mg capsule 0.4 mg PO HS #90 cap 08/08/18 apixaban 5 mg tablet 5 mg PO BID #180 tab 10/29/19 metoprolol tartrate 25 mg PO BID #30 tab 06/05/20 acetaminophen 500 mg tablet 1,000 mg PO BID #120 tab 06/14/20 aspirin 81 mg tablet,delayed 81 mg PO QAM #30 tab 06/14/20 release memantine 10 mg tablet 10 mg PO BID #180 tab 06/14/20 miscellaneous medical supply #1 ea 06/14/20 miscellaneous medical supply #1 ea 06/14/20 miscellaneous medical supply #1 ea 06/14/20 miscellaneous medical supply #1 ea 06/14/20 rivastigmine tartrate 3 mg capsule 3 mg PO QAM #30 cap 06/14/20 Results & Data (ED) Vital Signs Vital Signs - 24 hr 07/06/20 11:48 07/06/20 11:49 07/06/20 12:00 Pulse Rate 79 57 L 80 Pulse Rate from SpO2 Sensor 39 L Pulse Rhythm Pulse Strength Respiratory Rate 32 H 19 Respiratory Effort / Characteristics Respiratory Depth Respiratory Pattern Blood Pressure 180/128 H Blood Pressure Mean 145 Blood Pressure Position Pulse Oximetry 97 95 Oxygen Delivery Method Sepsis Recent Fever Within 48 Hours Sepsis New/Unexplained Change in Mental Status Sepsis Action Taken by Nursing 07/06/20 12:11 07/06/20 12:15 07/06/20 12:27 Pulse Rate 31 L 39 L 42 L Pulse Rate from SpO2 Sensor 41 L 49 L Pulse Rhythm Regular Pulse Strength Normal Respiratory Rate 14 22 22 Respiratory Effort / Characteristics Non-Labored Spontaneous Respiratory Depth Normal Respiratory Pattern Regular Blood Pressure 180/128 H 85/53 L Blood Pressure Mean 145 63 Blood Pressure Position Sitting Pulse Oximetry 98 94 98 Oxygen Delivery Method Room Air Sepsis Recent Fever Within 48 Hours No Sepsis New/Unexplained Change in Mental Status N/A Sepsis Action Taken by Nursing No Action Required 07/06/20 12:30 07/06/20 12:34 07/06/20 12:45 Pulse Rate 42 L 45 L 43 L Pulse Rate from SpO2 Sensor 43 L 44 L 43 L Pulse Rhythm Pulse Strength Respiratory Rate 22 21 22 Respiratory Effort / Characteristics Respiratory Depth Respiratory Pattern Blood Pressure 97/54 L 101/61 Blood Pressure Mean 68 74 Blood Pressure Position Pulse Oximetry 97 97 97 Oxygen Delivery Method Sepsis Recent Fever Within 48 Hours Sepsis New/Unexplained Change in Mental Status Sepsis Action Taken by Nursing 07/06/20 12:59 07/06/20 13:00 07/06/20 13:15 Pulse Rate 48 L 50 L Pulse Rate from SpO2 Sensor 47 L 50 L Pulse Rhythm Pulse Strength Respiratory Rate 22 18 Respiratory Effort / Characteristics Respiratory Depth Respiratory Pattern Blood Pressure 97/57 L 125/61 Blood Pressure Mean 70 82 Blood Pressure Position Pulse Oximetry 98 98 Oxygen Delivery Method Room Air Sepsis Recent Fever Within 48 Hours Sepsis New/Unexplained Change in Mental Status Sepsis Action Taken by Nursing 07/06/20 13:30 07/06/20 13:31 07/06/20 13:45 Pulse Rate 49 L 56 L 55 L Pulse Rate from SpO2 Sensor 55 L 57 L 54 L Pulse Rhythm Pulse Strength Respiratory Rate 19 15 19 Respiratory Effort / Characteristics Respiratory Depth Respiratory Pattern Blood Pressure 114/62 117/69 Blood Pressure Mean 79 85 Blood Pressure Position Pulse Oximetry 100 100 99 Oxygen Delivery Method Sepsis Recent Fever Within 48 Hours Sepsis New/Unexplained Change in Mental Status Sepsis Action Taken by Nursing 07/06/20 14:00 Pulse Rate 55 L Pulse Rate from SpO2 Sensor 56 L Pulse Rhythm Pulse Strength Respiratory Rate 19 Respiratory Effort / Characteristics Respiratory Depth Respiratory Pattern Blood Pressure 135/72 Blood Pressure Mean 93 Blood Pressure Position Pulse Oximetry 99 Oxygen Delivery Method Sepsis Recent Fever Within 48 Hours Sepsis New/Unexplained Change in Mental Status Sepsis Action Taken by Nursing Laboratory Data Result diagrams: 07/06/20 12:33 07/06/20 12:33 Lab Results 07/06/20 07/06/20 07/06/20 Range/Units 12:33 12:33 12:33 WBC 10.10 (4.8-10.8) K/uL RBC 3.97 L (4.7-6.1) M/uL Hgb 12.7 L (14.0-18.0) g/dL POC Hgb (14.0-18.0) g/dl Hct 38.6 L (42-52) % POC Hct (42-52) % MCV 97.2 (80-100) fL MCH 32.0 (25-34) pg MCHC 32.9 (32-36) g/dL RDW Std Deviation 51.3 H (36.4-46.3) fL RDW Coeff of Alex 14.5 (11.5-14.5) % Plt Count 198 (130-400) K/uL MPV 10.1 (7.4-10.4) fL Immature Gran % (Auto) 0.2 % Neut % (Auto) 81.0 % Lymph % (Auto) 12.0 % [place] % (Auto) 4.9 % Eos % (Auto) 1.7 % Baso % (Auto) 0.2 % Neut # (Auto) 8.19 H (1.4-6.5) K/uL Lymph # (Auto) 1.21 (1.2-3.4) K/uL [place] # (Auto) 0.49 (0.11-0.59) K/uL Eos # (Auto) 0.17 (0-0.5) K/uL Baso # (Auto) 0.02 (0-0.2) K/uL Immature Gran # (Auto) 0.02 (0.00-0.02) K/uL PT 10.6 (9.0-12.0) Seconds INR 1.0 (0.9-1.1) APTT 25.3 (21.0-31.0) Seconds PTT Ratio 1.0 POC Sodium (135-144) mmol/L Sodium 136 (136-145) mmol/L POC Potassium (3.3-5.0) mmol/L Potassium 4.4 (3.5-5.1) mmol/L POC Chloride (101-112) mmol/L Chloride 104 (98-107) mmol/L Carbon Dioxide 26 (21-32) mmol/L POC Total CO2 (24-31) mmol/L Anion Gap 7.0 (3-11) POC Anion Gap (16-25) mmol/L POC BUN (7-18) mg/dl BUN 16 (7-18) mg/dl Creatinine 1.09 (0.6-1.4) mg/dl POC Creatinine (0.6-1.3) mg/dl Est Cr Clr Drug Dosing Not Reportable Est GFR ( Amer) 77.6 ml/min Est GFR (Non-Af Amer) 67.0 ml/min BUN/Creatinine Ratio 15.0 (10-20) Glucose 125 H (70-99) mg/dl POC Glucose (other) (70-99) mg/dl Calcium 9.2 (8.5-10.1) mg/dl POC Ioniz Calcium Gaetano (1.12-1.32) mmol/l Magnesium 2.0 (1.8-2.4) mg/dl Total Bilirubin 0.7 (0.2-1) mg/dl AST 20 (15-37) U/L ALT 19 (12-78) U/L Alkaline Phosphatase 138 H (45-117) U/L Troponin I < 0.015 (0-0.045) ng/ml Total Protein 7.5 (6.4-8.2) gm/dl Albumin 3.1 L (3.4-5.0) gm/dl Globulin 4.4 H (2.5-4.0) gm/dl Albumin/Globulin Ratio 0.7 L (0.9-2) TSH 8.560 H (0.300-4.500) uIu/ml Free T4 1.00 (0.8-1.6) ng/dl Urine Color Urine Appearance (Clear) Urine pH (4.5-7.5) Ur Specific [place] (1.000-1.030) Urine Protein (Negative) Urine Glucose (UA) (Negative) Urine Ketones (Negative) Urine Blood (Negative) Urine Nitrite (Negative) Urine Bilirubin (Negative) Urine Urobilinogen (Negative) Ur Leukocyte Esterase (Negative) Urine RBC (0-4) /hpf Urine WBC (0-5) /hpf Ur Epithelial Cells (0-5) /lpf Urine Bacteria (Negative) COVID-19 Eval Order SARS-CoV-2 (PCR) (Negative) 07/06/20 07/06/20 07/06/20 Range/Units 12:34 12:41 12:41 WBC (4.8-10.8) K/uL RBC (4.7-6.1) M/uL Hgb (14.0-18.0) g/dL POC Hgb 12.9 L (14.0-18.0) g/dl Hct (42-52) % POC Hct 38 L (42-52) % MCV (80-100) fL MCH (25-34) pg MCHC (32-36) g/dL RDW Std Deviation (36.4-46.3) fL RDW Coeff of Alex (11.5-14.5) % Plt Count (130-400) K/uL MPV (7.4-10.4) fL Immature Gran % (Auto) % Neut % (Auto) % Lymph % (Auto) % [place] % (Auto) % Eos % (Auto) % Baso % (Auto) % Neut # (Auto) (1.4-6.5) K/uL Lymph # (Auto) (1.2-3.4) K/uL [place] # (Auto) (0.11-0.59) K/uL Eos # (Auto) (0-0.5) K/uL Baso # (Auto) (0-0.2) K/uL Immature Gran # (Auto) (0.00-0.02) K/uL PT (9.0-12.0) Seconds INR (0.9-1.1) APTT (21.0-31.0) Seconds PTT Ratio POC Sodium 136 (135-144) mmol/L Sodium (136-145) mmol/L POC Potassium 4.4 (3.3-5.0) mmol/L Potassium (3.5-5.1) mmol/L POC Chloride 101 (101-112) mmol/L Chloride (98-107) mmol/L Carbon Dioxide (21-32) mmol/L POC Total CO2 26 (24-31) mmol/L Anion Gap (3-11) POC Anion Gap 14.0 L (16-25) mmol/L POC BUN 16 (7-18) mg/dl BUN (7-18) mg/dl Creatinine (0.6-1.4) mg/dl POC Creatinine 1.0 (0.6-1.3) mg/dl Est Cr Clr Drug Dosing Est GFR ( Amer) ml/min Est GFR (Non-Af Amer) ml/min BUN/Creatinine Ratio (10-20) Glucose (70-99) mg/dl POC Glucose (other) 127 H (70-99) mg/dl Calcium (8.5-10.1) mg/dl POC Ioniz Calcium Gaetano 1.24 (1.12-1.32) mmol/l Magnesium (1.8-2.4) mg/dl Total Bilirubin (0.2-1) mg/dl AST (15-37) U/L ALT (12-78) U/L Alkaline Phosphatase (45-117) U/L Troponin I (0-0.045) ng/ml Total Protein (6.4-8.2) gm/dl Albumin (3.4-5.0) gm/dl Globulin (2.5-4.0) gm/dl Albumin/Globulin Ratio (0.9-2) TSH (0.300-4.500) uIu/ml Free T4 (0.8-1.6) ng/dl Urine Color Urine Appearance (Clear) Urine pH (4.5-7.5) Ur Specific [place] (1.000-1.030) Urine Protein (Negative) Urine Glucose (UA) (Negative) Urine Ketones (Negative) Urine Blood (Negative) Urine Nitrite (Negative) Urine Bilirubin (Negative) Urine Urobilinogen (Negative) Ur Leukocyte Esterase (Negative) Urine RBC (0-4) /hpf Urine WBC (0-5) /hpf Ur Epithelial Cells (0-5) /lpf Urine Bacteria (Negative) COVID-19 Eval [address] Covid19 at [facility] SARS-CoV-2 (PCR) NEGATIVE (Negative) 07/06/20 Range/Units 12:45 WBC (4.8-10.8) K/uL RBC (4.7-6.1) M/uL Hgb (14.0-18.0) g/dL POC Hgb (14.0-18.0) g/dl Hct (42-52) % POC Hct (42-52) % MCV (80-100) fL MCH (25-34) pg MCHC (32-36) g/dL RDW Std Deviation (36.4-46.3) fL RDW Coeff of Alex (11.5-14.5) % Plt Count (130-400) K/uL MPV (7.4-10.4) fL Immature Gran % (Auto) % Neut % (Auto) % Lymph % (Auto) % [place] % (Auto) % Eos % (Auto) % Baso % (Auto) % Neut # (Auto) (1.4-6.5) K/uL Lymph # (Auto) (1.2-3.4) K/uL [place] # (Auto) (0.11-0.59) K/uL Eos # (Auto) (0-0.5) K/uL Baso # (Auto) (0-0.2) K/uL Immature Gran # (Auto) (0.00-0.02) K/uL PT (9.0-12.0) Seconds INR (0.9-1.1) APTT (21.0-31.0) Seconds PTT Ratio POC Sodium (135-144) mmol/L Sodium (136-145) mmol/L POC Potassium (3.3-5.0) mmol/L Potassium (3.5-5.1) mmol/L POC Chloride (101-112) mmol/L Chloride (98-107) mmol/L Carbon Dioxide (21-32) mmol/L POC Total CO2 (24-31) mmol/L Anion Gap (3-11) POC Anion Gap (16-25) mmol/L POC BUN (7-18) mg/dl BUN (7-18) mg/dl Creatinine (0.6-1.4) mg/dl POC Creatinine (0.6-1.3) mg/dl Est Cr Clr Drug Dosing Est GFR ( Amer) ml/min Est GFR (Non-Af Amer) ml/min BUN/Creatinine Ratio (10-20) Glucose (70-99) mg/dl POC Glucose (other) (70-99) mg/dl Calcium (8.5-10.1) mg/dl POC Ioniz Calcium Gaetano (1.12-1.32) mmol/l Magnesium (1.8-2.4) mg/dl Total Bilirubin (0.2-1) mg/dl AST (15-37) U/L ALT (12-78) U/L Alkaline Phosphatase (45-117) U/L Troponin I (0-0.045) ng/ml Total Protein (6.4-8.2) gm/dl Albumin (3.4-5.0) gm/dl Globulin (2.5-4.0) gm/dl Albumin/Globulin Ratio (0.9-2) TSH (0.300-4.500) uIu/ml Free T4 (0.8-1.6) ng/dl Urine Color Yellow Urine Appearance Slightly Cloudy (Clear) Urine pH 6.5 (4.5-7.5) Ur Specific [place] 1.020 (1.000-1.030) Urine Protein 2+ H (Negative) Urine Glucose (UA) Negative (Negative) Urine Ketones Negative (Negative) Urine Blood 3+ H (Negative) Urine Nitrite Positive A (Negative) Urine Bilirubin Negative (Negative) Urine Urobilinogen Negative (Negative) Ur Leukocyte Esterase 3+ H (Negative) Urine RBC >30 H (0-4) /hpf Urine WBC >30 H (0-5) /hpf Ur Epithelial Cells 0-5 (0-5) /lpf Urine Bacteria 1+ H (Negative) COVID-19 Eval Order SARS-CoV-2 (PCR) (Negative) Administered Medications Discontinued Medications Atropine Sulfate (Atropine So4 1 Mg/Ml 1ml Vial) Confirm Administered Dose 1 mg .ROUTE .STK-MED ONE Stop: 07/06/20 11:53 Last Admin: 07/06/20 12:21 Dose: 1 mg Documented by: [id number] Atropine Sulfate (Atropine Sulfate 0.1 Mg/Ml 5ml Syr) Confirm Administered Dose 0.5 mg IV .STK-MED ONE Stop: 07/06/20 12:30 Last Admin: 07/06/20 12:37 Dose: 0.5 mg Documented by: [id number] Atropine Sulfate (Atropine Sulfate 0.1 Mg/Ml 10ml Syr) 0.5 mg IV NOW STA Stop: 07/06/20 12:46 Last Admin: 07/06/20 12:53 Dose: Not Given Documented by: [id number] Atropine Sulfate (Atropine Sulfate 0.1 Mg/Ml 5ml Syr) 1 mg IV NOW STA Stop: 07/06/20 12:46 Last Admin: 07/06/20 12:53 Dose: Not Given Documented by: [id number] Sodium Chloride (Nss) 500 mls @ 999 mls/hr IV .Q31M STA Stop: 07/06/20 12:58 Last Infusion: 07/06/20 13:16 Dose: 0 mls/hr Documented by: [id number] Admin: 07/06/20 12:37 Dose: 999 mls/hr Documented by: [id number] Levofloxacin/Dextrose (Levaquin/D5w) 500 mg in 100 mls @ 100 mls/hr IV NOW STA Stop: 07/06/20 15:01 Last Admin: 07/06/20 14:31 Dose: 100 mls/hr Documented by: [id number] Imaging Data Radiologist's Impression: Chest X-Ray 07/06/20 14:06 XR chest 1V portable CLINICAL HISTORY: heart block COMPARISON STUDY: June 04, 2020 FINDINGS: No pneumothorax. No pleural effusion. No large infiltrates or consolidative lesions are seen. Mild diffuse prominence of pulmonary interstitium is again seen and not significantly changed since prior. Cardiomediastinal silhouette is mildly enlarged. Mild pulmonary vascular congestion is seen.. Aorta is calcified. Evaluation is slightly limited due to overlying virus and resuscitation pad. Osseous structures: unremarkable IMPRESSION: 1. CHF pattern with possible pulmonary edema. ACT 112: Negative or not required by law. The above report was generated using voice recognition software. It may contain grammatical, syntax or spelling errors. Electronically signed by: Melissa Luque DO 07/06/2020 2:31 PM Discharge Plan Visit Data Chief Complaint: Cardiac Assessment ED Provider: Ricardo Daniel Discharge Problem: Symptomatic bradycardia, Acute UTI (urinary tract infection), Acute hypotension Patient Disposition: Admitted As Inpatient Discharge Instructions Interventions: ED Discharge Assessment Last Done: 07/06/20 15:14
[2020-07-06] MEDS ORDERED: ONDANSETRON INJ 2 MG/ML 2 ML VIAL IV PRN (15:34)
[2020-07-06] MEDS ORDERED: POLYETHYLENE (MIRALAX) 17 GM PACK PO PRN (15:34)
--- NOTE | 2020-07-06 17:12 | Electrocardiogram Report ---
Test Reason : Blood Pressure : / mmHG Vent. Rate : 040 BPM Atrial Rate : 300 BPM P-R Int : 000 ms QRS Dur : 090 ms QT Int : 552 ms P-R-T Axes : 000 001 152 degrees QTc Int : 449 ms Atrial fibrillation with slow ventricular response Voltage criteria for left ventricular hypertrophy Abnormal ECG When compared with ECG of 04-JUN-2020 15:55, No significant change was found Confirmed by Jeremie Thomas ([id number]) on 07/06/2020 5:11:39 PM Referred By: REFERRED SELF Confirmed By:Enrrique Thomas
--- NOTE | 2020-07-06 17:39 | Cardiology Consultation ---
Date of Consultation July 06, 2020 Assessment & Plan (1) Atrial fibrillation with slow ventricular response: Patient symptoms today are highly suggestive of a vagally mediated episode. The bradycardia, hypotension, diaphoresis, nausea and feeling of warmth all consistent with this diagnosis. Additionally, his symptoms resolved with fluid administration, atropine and time. He is known to have an element of bradycardia at baseline. He is not mobile and generally does not have symptoms associated with bradycardia. He may not require as much medication as he is being given. I think we can certainly hold his diltiazem metoprolol currently. What is less clear is whether he would benefit from a pacemaker. Pacemakers have a poor ability to mitigate vagally mediated responses such as the episode seen today. His believes he would want limited interventions overall, and in fact he was previously on hospice. At this point we have agreed to simply hold his medications and monitor his heart rate. She will consider the option of a pacemaker if these efforts fail or he has recurrent episodes. Currently on apixaban for anticoagulation which we will hold temporarily to make sure there is no urgent need for pacemaker. History of Present Illness Reason for Consultation: Bradycardia, hypotension Requesting Physician: Flower Attending Physician: Aden Crenshaw MD History of Present Illness The patient is a 74-year-old gentleman with a history of permanent atrial fibrillation and bradycardia who is not independently mobile due to a history of severe sepsis and complications therein. He has an indwelling Crews catheter and actually went to his urologist today for routine evaluation in the hopes of removing the catheter. His provided the entire history is the patient has little recollection of these events. It seems that while he was waiting for his urologist he began to become warm, diaphoretic and nauseated. According to his he looked quite pale. Attempt was made to obtain vital signs but the patient was hypotensive and bradycardic. An ambulance was called and he was brought to the emergency room where vital signs confirmed hypotension and bradycardia. Patient was administered some IV fluids and 2 doses of atropine with improvement in his hemodynamics and resolution of his symptoms. The patient was admitted to the hospital 1 month ago with an episode of bradycardia. At that time he was also being evaluated in the outpatient setting. No symptoms were noted at that time but he did have a low heart rate. His medications were reduced and he was sent home. According to his he has some impaired cognitive function and is not mobile. She is able to get him out of bed into a chair for portion of the day. His main concern lately has been discomfort associated with an indwelling Crews catheter. Additionally there was some mention of some constipation and/or diarrhea recently. Allergies Allergy/AdvReac Type Severity Reaction Status Date / Time isopropyl alcohol Allergy Severe RUBBING Verified 07/06/20 13:21 ALCOHOL - SHORTNESS OF BREATH adhesive Allergy Intermediate BLISTERS Verified 07/06/20 13:21 escitalopram Allergy Unknown UNSURE-DOES Verified 07/06/20 13:21 NOT KNOW oxycodone AdvReac Mild CONFUSION Verified 07/06/20 13:21 lisinopril AdvReac Unknown elevated Verified 07/06/20 13:21 creatinine Home Medications Medication Instructions Recorded Confirmed Type cholecalciferol (vitamin D3) 1,000 unit PO QPM 02/13/18 07/06/20 History [Vitamin D3] coenzyme Q10 [CoQ-10] 100 mg PO BID 02/13/18 07/06/20 History tamsulosin 0.4 mg capsule 0.4 mg PO HS #90 cap 08/08/18 07/06/20 Rx triamcinolone acetonide 0.1 % 1 appln TOPICAL DAILY PRN #60 gm 11/14/18 07/06/20 History topical ointment nitroglycerin 0.4 mg sublingual 0.4 mg SL Q5M PRN #25 tab 01/30/19 07/06/20 History tablet apixaban 5 mg tablet 5 mg PO BID #180 tab 10/29/19 07/06/20 Rx diltiazem HCl 120 mg 120 mg PO BID cap 06/04/20 07/06/20 History capsule,extended release 24 hr, controlled polyethylene glycol 3350 17 17 g PO DAILY 06/04/20 07/06/20 History gram/dose oral powder metoprolol tartrate 25 mg PO BID #30 tab 06/05/20 07/06/20 Rx acetaminophen 500 mg tablet 1,000 mg PO BID #120 tab 06/14/20 07/06/20 Rx aspirin 81 mg tablet,delayed 81 mg PO QAM #30 tab 06/14/20 07/06/20 Rx release lidocaine 4 % topical patch 1 patch TOPICAL DAILY PRN 06/14/20 07/06/20 History memantine 10 mg tablet 10 mg PO BID #180 tab 06/14/20 07/06/20 Rx miscellaneous medical supply #1 ea 06/14/20 07/06/20 Rx miscellaneous medical supply #1 ea 06/14/20 07/06/20 Rx miscellaneous medical supply #1 ea 06/14/20 07/06/20 Rx miscellaneous medical supply #1 ea 06/14/20 07/06/20 Rx rivastigmine tartrate 3 mg capsule 3 mg PO QAM #30 cap 06/14/20 07/06/20 Rx Patient History Medical History Acute kidney injury Atrial fibrillation with RVR BPH (benign prostatic hyperplasia) CAD (coronary artery disease) CAD (coronary artery disease) CHF (congestive heart failure) Closed fracture of radial head CVA (cerebral vascular accident) Dementia Gastroesophageal reflux disease Hemiplegia affecting left nondominant side Hyperlipidemia Hypertension Ileus Nephrolithiasis BARBARA (obstructive sleep apnea) Small bowel obstruction Surgical History History of knee replacement History of PTCA Family History Father Stroke Mother Myocardial infarction Aunt Diabetes Family/Other Heart disease Hypertension Nephrolithiasis Denies family history of Prostate cancer Social History Smoking Status: Unknown if ever smoked Second Hand Exposure: No; Hx Alcohol Use: No Hx Substance Use: No Preferred Language: Macedonian Communication Ability: Effective Visual Impairment: Limited Hearing Ability: Normal Drying Frame Operator Required: No Beliefs That Will Affect Care: None marital status: Current Living Situation: Spouse current occupational status: retired Other Information That Helps Us Care for You: No Feels Safe at Home: Yes Safety Concerns: Feels Safe At This Time Childhood Exposure to Second-Hand Smoke: Yes caffeine: No Physical Activity Frequency: Does not Exercise Seatbelt Use: always Sunscreen Use: No (not in the sun) Assistive Devices: Denture - Upper, Denture - Lower and Glasses Review of Systems Review of Systems: Per HPI. Currently patient complains primarily of abdominal discomfort. Physical Exam Physical Exam: The patient is alert and answers some questions appropriately. HEENT: Pupils are equal and reactive to light and accommodation. Extraocular movements are intact. The sclerae are anicteric. Neuro: Cranial nerves intact Lungs: Clear to auscultation bilaterally. He has good air movement without use of accessory muscles. No rales wheezes or rhonchi. Cardiac: Heart demonstrates an irregular and slow rhythm. Normal S1 and S2. No murmurs on examination. Pulses: The patient has palpable radial pulses bilaterally that are equal in intensity Shoulder left shoulder has anI 0 catheter. Extremities: There was no evidence of hypoperfusion. Skin: I did not appreciate any rashes on examination today. Results & Data ([facility]) Vital Signs (Past 12 Hours) Vital Signs Temp Pulse Pulse Resp BP BP Pulse Ox 07/06/20 16:00 68 07/06/20 15:34 07/06/20 15:22 37.1 C 60 16 139/76 100 07/06/20 15:11 59 L 07/06/20 14:45 63 20 98 07/06/20 14:30 56 L 20 135/93 98 07/06/20 14:15 60 20 132/80 100 07/06/20 14:00 55 L 19 135/72 99 07/06/20 13:45 55 L 19 117/69 99 07/06/20 13:31 56 L 15 114/62 100 07/06/20 13:30 49 L 19 100 07/06/20 13:15 50 L 18 125/61 98 07/06/20 13:00 48 L 22 97/57 L 98 07/06/20 12:45 43 L 22 101/61 97 07/06/20 12:34 45 L 21 97/54 L 97 07/06/20 12:30 42 L 22 97 07/06/20 12:27 42 L 22 85/53 L 98 07/06/20 12:15 39 L 22 94 07/06/20 12:11 31 L 14 180/128 H 98 07/06/20 12:00 80 95 07/06/20 11:49 57 L 19 180/128 H 97 07/06/20 11:48 79 32 H Pulse Ox 07/06/20 16:00 07/06/20 15:34 99 07/06/20 15:22 07/06/20 15:11 07/06/20 14:45 07/06/20 14:30 07/06/20 14:15 07/06/20 14:00 07/06/20 13:45 07/06/20 13:31 07/06/20 13:30 07/06/20 13:15 07/06/20 13:00 07/06/20 12:45 07/06/20 12:34 07/06/20 12:30 07/06/20 12:27 07/06/20 12:15 07/06/20 12:11 07/06/20 12:00 07/06/20 11:49 07/06/20 11:48 Laboratory Results Abnormal Lab Results 07/06/20 07/06/20 07/06/20 12:33 12:33 12:33 WBC 10.10 RBC 3.97 L Hgb 12.7 L POC Hgb Hct 38.6 L POC Hct MCV 97.2 MCH 32.0 MCHC 32.9 RDW Std Deviation 51.3 H RDW Coeff of Alex 14.5 Plt Count 198 MPV 10.1 Immature Gran % (Auto) 0.2 Neut % (Auto) 81.0 Lymph % (Auto) 12.0 [place] % (Auto) 4.9 Eos % (Auto) 1.7 Baso % (Auto) 0.2 Neut # (Auto) 8.19 H Lymph # (Auto) 1.21 [place] # (Auto) 0.49 Eos # (Auto) 0.17 Baso # (Auto) 0.02 Immature Gran # (Auto) 0.02 PT 10.6 INR 1.0 APTT 25.3 PTT Ratio 1.0 POC Sodium Sodium 136 POC Potassium Potassium 4.4 POC Chloride Chloride 104 Carbon Dioxide 26 POC Total CO2 Anion Gap 7.0 POC Anion Gap POC BUN BUN 16 Creatinine 1.09 POC Creatinine Est Cr Clr Drug Dosing Not Reportable Est GFR ( Amer) 77.6 Est GFR (Non-Af Amer) 67.0 BUN/Creatinine Ratio 15.0 Glucose 125 H POC Glucose (other) Lactate Calcium 9.2 POC Ioniz Calcium Gaetano Magnesium 2.0 Total Bilirubin 0.7 AST 20 ALT 19 Alkaline Phosphatase 138 H Troponin I < 0.015 Total Protein 7.5 Albumin 3.1 L Globulin 4.4 H Albumin/Globulin Ratio 0.7 L TSH 8.560 H Free T4 1.00 Urine Color Urine Appearance Urine pH Ur Specific Thayer Urine Protein Urine Glucose (UA) Urine Ketones Urine Blood Urine Nitrite Urine Bilirubin Urine Urobilinogen Ur Leukocyte Esterase Urine RBC Urine WBC Ur Epithelial Cells Urine Bacteria COVID-19 Eval Order SARS-CoV-2 (PCR) 07/06/20 07/06/20 07/06/20 12:34 12:41 12:41 WBC RBC Hgb POC Hgb 12.9 L Hct POC Hct 38 L MCV MCH MCHC RDW Std Deviation RDW Coeff of Alex Plt Count MPV Immature Gran % (Auto) Neut % (Auto) Lymph % (Auto) [place] % (Auto) Eos % (Auto) Baso % (Auto) Neut # (Auto) Lymph # (Auto) [place] # (Auto) Eos # (Auto) Baso # (Auto) Immature Gran # (Auto) PT INR APTT PTT Ratio POC Sodium 136 Sodium POC Potassium 4.4 Potassium POC Chloride 101 Chloride Carbon Dioxide POC Total CO2 26 Anion Gap POC Anion Gap 14.0 L POC BUN 16 BUN Creatinine POC Creatinine 1.0 Est Cr Clr Drug Dosing Est GFR ( Amer) Est GFR (Non-Af Amer) BUN/Creatinine Ratio Glucose POC Glucose (other) 127 H Lactate Calcium POC Ioniz Calcium Gaetano 1.24 Magnesium Total Bilirubin AST ALT Alkaline Phosphatase Troponin I Total Protein Albumin Globulin Albumin/Globulin Ratio TSH Free T4 Urine Color Urine Appearance Urine pH Ur Specific Thayer Urine Protein Urine Glucose (UA) Urine Ketones Urine Blood Urine Nitrite Urine Bilirubin Urine Urobilinogen Ur Leukocyte Esterase Urine RBC Urine WBC Ur Epithelial Cells Urine Bacteria COVID-19 Eval Order Covid19 at [facility] SARS-CoV-2 (PCR) NEGATIVE 07/06/20 07/06/20 12:45 14:12 WBC RBC Hgb POC Hgb Hct POC Hct MCV MCH MCHC RDW Std Deviation RDW Coeff of Alex Plt Count MPV Immature Gran % (Auto) Neut % (Auto) Lymph % (Auto) [place] % (Auto) Eos % (Auto) Baso % (Auto) Neut # (Auto) Lymph # (Auto) [place] # (Auto) Eos # (Auto) Baso # (Auto) Immature Gran # (Auto) PT INR APTT PTT Ratio POC Sodium Sodium POC Potassium Potassium POC Chloride Chloride Carbon Dioxide POC Total CO2 Anion Gap POC Anion Gap POC BUN BUN Creatinine POC Creatinine Est Cr Clr Drug Dosing Est GFR ( Amer) Est GFR (Non-Af Amer) BUN/Creatinine Ratio Glucose POC Glucose (other) Lactate 1.9 Calcium POC Ioniz Calcium Gaetano Magnesium Total Bilirubin AST ALT Alkaline Phosphatase Troponin I Total Protein Albumin Globulin Albumin/Globulin Ratio TSH Free T4 Urine Color Yellow Urine Appearance Slightly Cloudy Urine pH 6.5 Ur Specific Thayer 1.020 Urine Protein 2+ H Urine Glucose (UA) Negative Urine Ketones Negative Urine Blood 3+ H Urine Nitrite Positive A Urine Bilirubin Negative Urine Urobilinogen Negative Ur Leukocyte Esterase 3+ H Urine RBC >30 H Urine WBC >30 H Ur Epithelial Cells 0-5 Urine Bacteria 1+ H COVID-19 Eval Order SARS-CoV-2 (PCR) Diagnostic Findings Of CHF pattern in pulmonary edema. PG Care Time/CCT Total # of Minutes Spent Total Time Spent with Patient: Total time spent is greater than 50% in coordination of care (as documented) at patient's floor/unit and/or counseling patient: Coding Level of Care Code 32841 Initial Inpt Care Lvl 3 Diagnoses Atrial fibrillation with slow ventricular response I48.91
[2020-07-06] MEDS: TAMSULOSIN HCL 0.4 MG CAP PO SCH (20:47)
[2020-07-06] MEDS: ACETAMINOPHEN 500 MG TAB PO SCH (20:47)
[2020-07-06] MEDS: MEMANTINE HCL 10 MG TAB PO SCH (20:47)
[2020-07-07 07:55] LABS: BUN Creatinine Ratio 18.3 (10-20); Calcium 9.4 mg/dl (8.5-10.1); Creatinine Clr Calc Pharmacy 77.4 ml/min; Est GFR (African American) 100.2 ml/min; Est GFR (Non-African American) 86.4 ml/min; Magnesium 2.3 mg/dl (1.8-2.4); Potassium 4.3 mmol/L (3.5-5.1)
[2020-07-07] MEDS: POLYETHYLENE (MIRALAX) 17 GM PACK PO SCH (07:58)
[2020-07-07] MEDS: ASPIRIN 81 MG ECTAB PO SCH (08:01)
[2020-07-07] MEDS: MEMANTINE HCL 10 MG TAB PO SCH ×2 (08:02→21:06)
[2020-07-07] MEDS: ACETAMINOPHEN 500 MG TAB PO SCH ×2 (08:02→21:06)
--- NOTE | 2020-07-07 09:48 | Cardiology Progress Note ---
Date of Service July 07, 2020 Assessment & Plan (1) Atrial fibrillation with slow ventricular response: His heart rate picked up through the course of yesterday. I suspect his event was related to high vagal tone. However, it is unclear that he requires is much rate control medication. His rates are slightly elevated today. I would advocate reinstitution of his beta-giovany. Metoprolol 25 mg twice daily would seem reasonable. He certainly not symptomatic from atrial fibrillation. He can have his heart rates monitored in the outpatient setting. He should continue his anticoagulation with Eliquis. He does not require aspirin in addition to Eliquis from a cardiac standpoint. I think he would be safe for discharge today with follow-up in the cardiology clinic on an outpatient basis. Admission and Anticipated Discharge Date Admission Date: July 06, 2020 Subjective This morning the patient claims to be feeling well. He is anxious to go home. He did not report any nausea or diaphoresis. He is not aware of any palpitations. No abdominal pain or pain from his urinary catheter this morning. Review of Systems Review of Systems: Per HPI Physical Exam Physical Exam: The patient is alert and oriented. Mood and affect appeared normal. He answered all questions appropriately. HEENT: Pupils are equal and reactive to light and accommodation. Extraocular movements are intact. The sclerae are anicteric. Lungs: Normal respiratory effort Cardiac: Heart demonstrates an irregular rhythm but normal rate. Normal S1 and S2. No murmurs on examination. Extremities: There was no evidence of hypoperfusion. There is no cyanosis or clubbing. Skin: I did not appreciate any rashes on examination today. Results & Data ([facility]) Vital Signs (Past 12 Hours) Vital Signs Temp Pulse Pulse Resp BP Pulse Ox 07/07/20 09:00 93 H 07/07/20 07:30 36.8 C 100 H 18 151/100 H 98 07/07/20 03:42 36.8 C 83 18 139/88 99 07/07/20 00:01 87 07/06/20 23:21 36.6 C 90 18 147/64 H 96 PG Care Time/CCT Total # of Minutes Spent Total Time Spent with Patient: Total time spent is greater than 50% in coordination of care (as documented) at patient's floor/unit and/or counseling patient: Coding Level of Care Code 21130 Subseq Hosp Care Lvl 2 Diagnoses Atrial fibrillation with slow ventricular response I48.91
[2020-07-07] MEDS ORDERED: METOPROLOL TARTRATE 25 MG TAB PO SCH (10:00)
[2020-07-07] MEDS: cefTRIAXone SODIUM 2,000 MG in DEXTROSE 5% 50 ML IV SCH (10:31)
--- NOTE | 2020-07-07 12:51 | Electrocardiogram Report ---
Test Reason : Blood Pressure : / mmHG Vent. Rate : 093 BPM Atrial Rate : 084 BPM P-R Int : 000 ms QRS Dur : 080 ms QT Int : 372 ms P-R-T Axes : 000 -12 144 degrees QTc Int : 462 ms Atrial fibrillation Voltage criteria for left ventricular hypertrophy Prolonged QT Abnormal ECG When compared with ECG of 06-JUL-2020 11:53, Vent. rate has increased BY 53 BPM T wave inversion less evident in Anterior leads Confirmed by Jeremie Thomas ([id number]) on 07/07/2020 12:51:25 PM Referred By: REFERRED SELF Confirmed By:Enrrique Thomas
[2020-07-07] MEDS ORDERED: levoFLOXacin/D5W 500 MG/100 ML BAG IV SCH (14:00)
[2020-07-07] MEDS: METOPROLOL TARTRATE 25 MG TAB PO SCH (21:06)
[2020-07-07] MEDS: TAMSULOSIN HCL 0.4 MG CAP PO SCH (21:06)
[2020-07-08 06:50] LABS: Hematocrit (blood only) 41.4 % (42-52); Hemoglobin 13.9 g/dL (14.0-18.0); Mean Corpuscular Hemoglobin 31.7 pg (25-34); Mean Corpuscular Hgb Conc 33.6 g/dL (32-36); Mean Corpuscular Volume 94.5 fL (80-100); Mean Platelet Volume 9.9 fL (7.4-10.4); Platelet Count 190 K/uL (130-400); RDW Coefficient of Variation 14.4 % (11.5-14.5); RDW Standard Deviation 49.8 fL (36.4-46.3); Red Blood Count 4.38 M/uL (4.7-6.1); White Blood Count 6.15 K/uL (4.8-10.8)
[2020-07-08] MEDS: POLYETHYLENE (MIRALAX) 17 GM PACK PO SCH (07:06)
[2020-07-08] MEDS: ACETAMINOPHEN 500 MG TAB PO SCH ×2 (07:06→20:17)
[2020-07-08] MEDS: ASPIRIN 81 MG ECTAB PO SCH (07:07)
[2020-07-08] MEDS: MEMANTINE HCL 10 MG TAB PO SCH ×2 (07:07→20:18)
[2020-07-08] MEDS: cefTRIAXone SODIUM 2,000 MG in DEXTROSE 5% 50 ML IV SCH (07:09)
[2020-07-08] MEDS: METOPROLOL TARTRATE 25 MG TAB PO SCH ×2 (07:09→18:42)
[2020-07-08 07:23] LABS: BUN Creatinine Ratio 21.5 (10-20); Calcium 9.8 mg/dl (8.5-10.1); Creatinine Clr Calc Pharmacy 75.6 ml/min; Est GFR (African American) 99.2 ml/min; Est GFR (Non-African American) 85.6 ml/min; Magnesium 2.2 mg/dl (1.8-2.4); Potassium 3.9 mmol/L (3.5-5.1)
--- NOTE | 2020-07-08 09:08 | Hospitalist Progress Note ---
Date of Service July 07, 2020 Assessment & Plan (1) Symptomatic bradycardia: Suspected vasovagal event at [facility] just prior to admission. BB and CCB stopped due to severe bradycardia upon presentation. No near-syncopal or syncopal events since admission. HRs now >100 - see below. echo 04/2019 - EF >70%; mild pulmonary HTN. defer final recommendations to Dr Thomas from cardiology. (2) Atrial fibrillation: Permanent. With episode of suspected vasovagal event yesterday leading to severe bradycardia. Bradycardia resolved; HRs now >100. Metoprolol 25mg BID resumed this am by Dr Thomas. CCB still on hold. Eliquis on hold. Despite the 25mg of metoprolol being restarted he has continued with HRs>100 at rest most of the day. Increase metoprolol modestly to 37.5mg BID and follow HRs overnight. Pacemaker has been discussed but on hold for now per Dr Thomas. (3) Acute urinary retention: Severe. Ellis placed 07/01 in ER. 800cc of urine in bladder upon insertion. CT a/p from that ER visit with b/l hydro suggesting urinary obstruction is longer standing than just acute. BPH likely playing a big role in such. Continue ellis. Treat UTI. Flomax. Needs LEONID to r/o prostatitis. (4) Catheter-associated urinary tract infection: 2nd GNR. Cont rocephin. Needs LEONID to r/o prostatitis. (5) BPH (benign prostatic hyperplasia): Cont flomax. Cont ellis. (6) Hemiplegia affecting left nondominant side: Patient is significantly debilitated from a previous stroke. Typically on aspirin and eliquis for secondary prevention. Suspect element of vascular dementia from prior CVA. (7) Constipation: Improved. Bowel regimen. Constipation 2nd to nonambulatory status. (8) Hypertension: Continue current meds. (9) Dementia: Advanced. (10) Gastroesophageal reflux disease: Really should be on H2 giovany or PPI due to chronic asa & eliquis use along with GERD. (11) Hydronephrosis: b/l 2nd to urinary obstruction from BPH ellis flomax time (12) DVT prophylaxis: eliquis on hold in the event he needs pacer insertion SCDs in meantime extensively updated at bedside today Admission and Anticipated Discharge Date Admission Date: July 06, 2020 Subjective tele overnight - now with merle, rates >100 much of the time patient in recliner during my visit at bedside patient offers no meaningful history or ROS staff report uneventful day with no issues with numerous questions about suspected vasovagal event yesterday, UTI, prostate, ellis, etc Review of Systems Review of Systems: Unobtainable due to cognitive status Physical Exam Constitutional: + altered mental status; no acute distress ENMT: external ear and nose normal, oropharynx normal Respiratory: normal respiratory effort, lungs clear to auscultation Cardiovascular: Rate/Rhythm: + tachycardic and + irregularly irregular Heart Sounds: normal S1 and normal S2; no murmur Vessels: posterior tibial pulses present and dorsalis pedis pulses present; no JVD Extremities: + edema (trace b/l ) Gastrointestinal (Abdomen): normal bowel sounds, soft, nontender, no hepatosplenomegaly Psychiatric: Orientation: alert and oriented to person; + not oriented to place and + not oriented to time Genitourinary: ellis w/ cloudy urine Results & Data Results & Data ([facility]) Vital Signs (Past 12 Hours) Vital Signs Temp Pulse Pulse Resp BP Pulse Ox 07/08/20 07:53 95 H 07/08/20 06:56 36.6 C 93 H 18 127/95 100 07/08/20 03:00 36.8 C 90 20 122/82 92 07/08/20 00:37 104 H 07/07/20 22:44 37.0 C 89 20 140/84 92 Laboratory Results BMP wnl urine cx -- >100,000 CFU gram negative ashli recent CT abd/pelvis from 07/01 reviewed - severe constipation, mild b/l hydronephrosis PG Care Time/CCT Total # of Minutes Spent Total Time Spent with Patient: Total time spent is greater than 50% in coordination of care (as documented) at patient's floor/unit and/or counseling patient: Coding Level of Care Code 39659 Subseq Hosp Care Lvl 3 Diagnoses Symptomatic bradycardia R00.1 Atrial fibrillation I48.21 Atrial fibrillation type: permanent Acute urinary retention R33.8 Catheter-associated urinary tract infection T83.511A; N39.0 BPH (benign prostatic hyperplasia) N40.0 Hemiplegia affecting left nondominant side G81.94 Constipation K59.00 Constipation type: unspecified constipation type Hypertension I10 Hypertension type: unspecified Dementia F03.90 Dementia behavioral disturbance: without behavioral disturbance Dementia type: unspecified type Gastroesophageal reflux disease K21.9 Hydronephrosis N13.30 DVT prophylaxis Z29.9 (1) Atrial fibrillation Atrial fibrillation type: permanent Qualified Code(s): I48.21 - Permanent atrial fibrillation (2) Dementia Dementia behavioral disturbance: without behavioral disturbance Dementia type: unspecified type Qualified Code(s): F03.90 - Unspecified dementia without behavioral disturbance (3) Hypertension Hypertension type: unspecified Qualified Code(s): I10 - Essential (primary) hypertension (4) Constipation Constipation type: unspecified constipation type Qualified Code(s): K59.00 - Constipation, unspecified
[2020-07-08] MEDS: CIPROFLOXACIN 500 MG TAB PO SCH ×2 (09:57→20:18)
[2020-07-08] MEDS: ADVANCED PROBIOTIC 1250 MG CAPSULE PO SCH (10:44)
[2020-07-08] MEDS ORDERED: METOPROLOL TARTRATE 25 MG TAB PO STA (14:17)
[2020-07-08] MEDS ORDERED: ATROPINE SULFATE 0.1 MG/ML 10ML SYR IV ONE (15:10)
[2020-07-08] MEDS ORDERED: LIDOCAINE 2% 20 MG/ML 5 ML SYR IV ONE (15:10)
--- NOTE | 2020-07-08 16:22 | Hospitalist Progress Note ---
Date of Service July 08, 2020 Assessment & Plan (1) Symptomatic bradycardia: Suspected vasovagal event at [facility] just prior to admission. BB and CCB stopped due to severe bradycardia upon presentation. No near-syncopal or syncopal events since admission. HRs cont to be >100 despite resumption & titration of BB. See below. echo 04/2019 - EF >70%; mild pulmonary HTN. defer final recommendations to Dr Thomas from cardiology. (2) Atrial fibrillation: Permanent. With episode of suspected vasovagal event on day of admission leading to severe bradycardia. Bradycardia resolved; HRs now >100. Metoprolol 25mg BID resumed yesterday. Titrated first to 37.5mg BID without improvement. Titrated to 50mg BID without improvement. Thus, short-acting cardizem 30mg q6h restarted (this is 1/2 his usual dose). Eliquis on hold. Follow HRs overnight Pacemaker has been discussed but on hold for now per Dr Thomas. (3) Acute urinary retention: Severe. Ellis placed 07/01 in ER. 800cc of urine in bladder upon insertion. CT a/p from that ER visit with b/l hydro suggesting urinary obstruction is longer standing than just acute. BPH likely playing a big role in such. Continue ellis. Treat UTI. Flomax. Needs LEONID to r/o prostatitis. (4) Catheter-associated urinary tract infection: 2nd pansensitive pseudomonas. STOP rocephin. Start cipro 500mg BID along with probiotics. Needs LEONID to r/o prostatitis. (5) BPH (benign prostatic hyperplasia): Cont flomax. Cont ellis. (6) Hemiplegia affecting left nondominant side: Patient is significantly debilitated from a previous stroke. Typically on aspirin and eliquis for secondary prevention. Suspect element of vascular dementia from prior CVA. (7) Constipation: Improved. Bowel regimen. Constipation 2nd to nonambulatory status. (8) Hypertension: Continue current meds. (9) Dementia: Advanced. (10) Gastroesophageal reflux disease: Really should be on H2 giovany or PPI due to chronic asa & eliquis use along with GERD. Consider starting such while here. (11) Hydronephrosis: b/l 2nd to urinary obstruction from BPH ellis flomax time (12) DVT prophylaxis: eliquis on hold in the event he needs pacer insertion SCDs in meantime extensively updated at bedside yesterday updated her by phone today Admission and Anticipated Discharge Date Admission Date: July 06, 2020 Subjective despite increase in metoprolol to 37.5mg BID last pm, then 50mg BID this am, HRs continue to remain >100 thus, cardizem resumed at 30mg q6h shortly after my bedside rounds during rounds he was sitting/lying in a recliner in good spirits - smiling niece was at bedside he offered no complaints eating well he told me about his job at [employer] here in [employer] worked there 40 years Review of Systems Respiratory: no dyspnea Cardiovascular: no chest pain Gastrointestinal: no abdominal pain Physical Exam Constitutional: + altered mental status (Baseline); no acute distress more talkative today ; smiling ENMT: external ear and nose normal, oropharynx normal Respiratory: normal respiratory effort, lungs clear to auscultation Cardiovascular: Rate/Rhythm: + tachycardic and + irregularly irregular Heart Sounds: normal S1 and normal S2; no murmur Vessels: posterior tibial pulses present and dorsalis pedis pulses present; no JVD Extremities: + edema (trace b/l ) Gastrointestinal (Abdomen): normal bowel sounds, soft, nontender, no hepatosplenomegaly Psychiatric: Orientation: alert and oriented to person; + not oriented to place and + not oriented to time Results & Data Results & Data ([facility]) Vital Signs (Past 12 Hours) Vital Signs Temp Pulse Pulse Resp BP Pulse Ox 07/08/20 15:25 37.2 C 127 H 18 125/88 95 07/08/20 14:53 111 H 07/08/20 11:17 37 C 82 18 143/79 H 99 07/08/20 07:53 95 H 07/08/20 06:56 36.6 C 93 H 18 127/95 100 Laboratory Results Laboratory Results - last 24 hr 07/08/20 07/08/20 06:32 06:32 WBC 6.15 RBC 4.38 L Hgb 13.9 L Hct 41.4 L MCV 94.5 MCH 31.7 MCHC 33.6 RDW Std Deviation 49.8 H RDW Coeff of Alex 14.4 Plt Count 190 MPV 9.9 Sodium 139 Potassium 3.9 Chloride 105 Carbon Dioxide 28 Anion Gap 5.0 BUN 19 H Creatinine 0.87 Est Cr Clr Drug Dosing 75.6 Est GFR ( Amer) 99.2 Est GFR (Non-Af Amer) 85.6 BUN/Creatinine Ratio 21.5 H Glucose 91 Calcium 9.8 Magnesium 2.2 urine cx - pansens pseudomonas, >100, 000 CFU PG Care Time/CCT Total # of Minutes Spent Total Time Spent with Patient: Total time spent is greater than 50% in coordination of care (as documented) at patient's floor/unit and/or counseling patient: Coding Level of Care Code 54326 Subseq Hosp Care Lvl 3 Diagnoses Symptomatic bradycardia R00.1 Atrial fibrillation I48.21 Atrial fibrillation type: permanent Acute urinary retention R33.8 Catheter-associated urinary tract infection T83.511A; N39.0 BPH (benign prostatic hyperplasia) N40.0 Hemiplegia affecting left nondominant side G81.94 Constipation K59.00 Constipation type: unspecified constipation type Hypertension I10 Hypertension type: unspecified Dementia F03.90 Dementia behavioral disturbance: without behavioral disturbance Dementia type: unspecified type Gastroesophageal reflux disease K21.9 Hydronephrosis N13.30 DVT prophylaxis Z29.9 (1) Atrial fibrillation Atrial fibrillation type: permanent Qualified Code(s): I48.21 - Permanent atrial fibrillation (2) Dementia Dementia behavioral disturbance: without behavioral disturbance Dementia type: unspecified type Qualified Code(s): F03.90 - Unspecified dementia without behavioral disturbance (3) Hypertension Hypertension type: unspecified Qualified Code(s): I10 - Essential (primary) hypertension (4) Constipation Constipation type: unspecified constipation type Qualified Code(s): K59.00 - Constipation, unspecified
[2020-07-08] MEDS: dilTIAZem HCL 30 MG TAB PO SCH ×2 (17:35→23:31)
--- NOTE | 2020-07-08 18:37 | Electrocardiogram Report ---
Test Reason : Blood Pressure : / mmHG Vent. Rate : 092 BPM Atrial Rate : 079 BPM P-R Int : 000 ms QRS Dur : 084 ms QT Int : 382 ms P-R-T Axes : 000 -18 147 degrees QTc Int : 472 ms Atrial fibrillation Voltage criteria for left ventricular hypertrophy Prolonged QT Abnormal ECG When compared with ECG of 07-JUL-2020 06:33, ST more depressed Lateral leads T wave inversion more evident in Anterolateral leads Confirmed by Jeremie Thomas ([id number]) on 07/08/2020 6:36:49 PM Referred By: REFERRED SELF Confirmed By:Enrrique Thomas
[2020-07-08] MEDS: TAMSULOSIN HCL 0.4 MG CAP PO SCH (20:18)
[2020-07-08] MEDS ORDERED: METOPROLOL TARTRATE 50 MG TAB PO SCH (21:00)
[2020-07-09] MEDS: METOPROLOL TARTRATE 25 MG TAB PO SCH ×4 (00:24→17:45)
[2020-07-09] MEDS: dilTIAZem HCL 30 MG TAB PO SCH ×2 (04:32→10:29)
[2020-07-09 08:32] LABS: BUN Creatinine Ratio 27.5 (10-20); Calcium 9.6 mg/dl (8.5-10.1); Est GFR (African American) 92.9 ml/min; Est GFR (Non-African American) 80.1 ml/min; Magnesium 2.2 mg/dl (1.8-2.4); Potassium 3.9 mmol/L (3.5-5.1)
[2020-07-09] MEDS: MEMANTINE HCL 10 MG TAB PO SCH (08:57)
[2020-07-09] MEDS: ASPIRIN 81 MG ECTAB PO SCH (08:57)
[2020-07-09] MEDS: ADVANCED PROBIOTIC 1250 MG CAPSULE PO SCH (08:57)
[2020-07-09] MEDS: CIPROFLOXACIN 500 MG TAB PO SCH ×2 (08:58→17:45)
[2020-07-09] MEDS: POLYETHYLENE (MIRALAX) 17 GM PACK PO SCH (08:58)
[2020-07-09] MEDS: ACETAMINOPHEN 500 MG TAB PO SCH (08:58)
--- NOTE | 2020-07-09 12:30 | Cardiology Progress Note ---
Date of Service July 09, 2020 Assessment & Plan (1) Atrial fibrillation with slow ventricular response: Heart rates much better today. He was be started on calcium channel giovany in his beta-giovany dose was increased. I would suspect he could be discharged today. I think sending him home on metoprolol tartrate 25 mg twice a day and a single daily dose of diltiazem 180 mg would be reasonable. We can continue to see him in the outpatient setting, or if he has home health think monitor his pulse periodically and call the results to his primary physician or our clinic. He should continue his apixaban Admission and Anticipated Discharge Date Admission Date: July 06, 2020 Subjective This morning patient went syndrome that he was constipated. He did not report abdominal pain. He has not report dizziness or lightheadedness. No sense of palpitation. Review of Systems Review of Systems: Per HPI Physical Exam Physical Exam: The patient is alert and oriented. Mood and affect appeared normal. He answered all questions appropriately. HEENT: Pupils are equal and reactive to light and accommodation. Extraocular movements are intact. The sclerae are anicteric. Lungs: Normal respiratory effort Cardiac: Heart demonstrates an irregular rhythm but normal rate. Normal S1 and S2. No murmurs on examination. Abdomen: Soft Extremities: There was no evidence of hypoperfusion. There is no cyanosis or clubbing. Skin: I did not appreciate any rashes on examination today. Results & Data ([facility]) Vital Signs (Past 12 Hours) Vital Signs Temp Pulse Pulse Resp BP BP Pulse Ox 07/09/20 11:59 36.5 C 72 18 109/73 95 07/09/20 08:00 74 07/09/20 06:27 79 122/82 07/09/20 04:34 78 20 123/85 07/09/20 03:28 36.6 C 79 20 104/84 99 Laboratory Results Abnormal Lab Results 07/09/20 07:18 Sodium 137 Potassium 3.9 Chloride 106 Carbon Dioxide 24 Anion Gap 7.0 BUN 26 H Creatinine 0.94 Est Cr Clr Drug Dosing 70.0 Est GFR ( Amer) 92.9 Est GFR (Non-Af Amer) 80.1 BUN/Creatinine Ratio 27.5 H Glucose 94 Calcium 9.6 Magnesium 2.2 Diagnostic Findings Of CHF pattern in pulmonary edema. PG Care Time/CCT Total # of Minutes Spent Total Time Spent with Patient: Total time spent is greater than 50% in coordination of care (as documented) at patient's floor/unit and/or counseling patient: Coding Level of Care Code 46081 Subseq Hosp Care Lvl 2 Diagnoses Atrial fibrillation with slow ventricular response I48.91
[2020-07-09] MEDS ORDERED: dilTIAZem HCL 180 MG CAPCR PO SCH (16:00)
--- NOTE | 2020-07-09 18:33 | Discharge Summary ---
Date of Service date of admission - July 06, 2020 date of discharge - July 09, 2020 Admission HPI Per Admitting Provider 74-year-old male who arrives from urology office. Prior to urology visit he was in his normal state of health. The patient was there for routine urological checkup however prior to the checkup the patient became unresponsive. EMS was called. Reportedly he had no palpable pulse and on the monitor he was bradycardic. EMS placed an interosseous access device to try to give him medications however it was very painful and difficult to use. Patient reportedly was externally paced upon arrival to the emergency department and in significant discomfort. According to the ER physician after IV access was established the patient was given a milligram of atropine with good pickup of his heart rate and blood pressure. The transcutaneous pacing was stopped the patient's pulse now ranges in the 40-50 range but his blood pressure is maintained at 101/61 or so. Initial laboratories are relatively unremarkable with the exception of likely a urinary tract infection present on admission. Of note the patient is on rate insulin see medications including diltiazem 120 extended release twice a day and metoprolol tartrate 25 twice a day he is anticoagulated with apixaban for history of atrial fibrillation. Principal Diagnosis 1. severe symptomatic bradycardia / syncope; vasovagal episode suspected 2. urinary tract infection 2nd pseudomonas 3. BPH 4. recent urinary retention s/p recent jennings placement - 2nd to #2 and #3 5. dementia 6. atrial fibrillation Discharge Exam Constitutional + altered mental status (Baseline); no acute distress ENMT external ear and nose normal, oropharynx normal Respiratory normal respiratory effort, lungs clear to auscultation Cardiovascular Rate/Rhythm: regular rate and + irregularly irregular Heart Sounds: normal S1 and normal S2; no murmur Vessels: posterior tibial pulses present and dorsalis pedis pulses present; no JVD Extremities: + edema (trace b/l ) Gastrointestinal (Abdomen) normal bowel sounds, soft, nontender, no hepatosplenomegaly LEONID - chaperoned by nursing staff - enlarged prostate, not boggy, not tender, tiny nodule base; no fecal impaction, no rectal masses. Neurologic + focal motor deficit (left arm/leg with hemiparesis ) Psychiatric Orientation: alert and oriented to person; + not oriented to place and + not oriented to time Discharge Data Allergies Allergy/AdvReac Type Severity Reaction Status Date / Time isopropyl alcohol Allergy Severe RUBBING Verified 07/06/20 13:21 ALCOHOL - SHORTNESS OF BREATH adhesive Allergy Intermediate BLISTERS Verified 07/06/20 13:21 escitalopram Allergy Unknown UNSURE-DOES Verified 07/06/20 13:21 NOT KNOW oxycodone AdvReac Mild CONFUSION Verified 07/06/20 13:21 lisinopril AdvReac Unknown elevated Verified 07/06/20 13:21 creatinine Consultations [facility], OT Procedures Performed Chest X-Ray 07/06/20 14:06 XR chest 1V portable CLINICAL HISTORY: heart block COMPARISON STUDY: June 04, 2020 FINDINGS: No pneumothorax. No pleural effusion. No large infiltrates or consolidative lesions are seen. Mild diffuse prominence of pulmonary interstitium is again seen and not significantly changed since prior. Cardiomediastinal silhouette is mildly enlarged. Mild pulmonary vascular congestion is seen. Aorta is calcified. Evaluation is slightly limited due to overlying virus and resuscitation pad. Osseous structures: unremarkable IMPRESSION: 1. CHF pattern with possible pulmonary edema. ACT 112: Negative or not required by law. The above report was generated using voice recognition software. It may contain grammatical, syntax or spelling errors. Electronically signed by: Melissa Luque DO 07/06/2020 2:31 PM Hospital Course (1) Syncope: 2nd to severe bradycardia. Seen by Dr Jeremie Thomas, [facility]/electrophysiology. Dr Thomas felt that the patient had experienced a severe vasovagal episode leading to the bradycardia and syncope. Although the patient has atrial fibrillation, it was not immediately felt that the patient had developed tachy-jose syndrome necessitating the implantation of a permanent pacemaker. The patient's AV elif agents were held on day of admission. With time the patient's hear rates oscar, and his AV elif agents were gradually reintroduced (see below). During the patient's stay he had no further episodes of syncope or presyncope. Further, no significant pauses or AV block were seen on telemetry. He will need close follow-up with Dr Thomas after discharge for this problem. (2) Symptomatic bradycardia: Suspected vasovagal event at [facility] office just prior to admission. BB and CCB were stopped upon admission due to the severe bradycardia. Patient had no near-syncopal or syncopal events for the rest of the admission. Heart rates gradually oscar to >100 and his beta giovany was reintroduced. Despite such he remained tachycardic. Subsequently he was placed back on diltiazem with improved heart rates. Thus, he will remain on a combination of metoprolol and diltiazem albeit at lower doses than previous. (3) Atrial fibrillation: Permanent. With episode of suspected vasovagal event on day of admission leading to severe bradycardia. Bradycardia resolved and did not recur. Metoprolol 25mg BID was ultimately resumed because of development of tachycardia. Cardizem short-acting was reintroduced and he tolerated this well. Heart rates improved to <100 with reintroduction of the metoprolol and diltiazem combination. On day of discharge Dr Thomas recommended the following meds & doses -- * metoprolol tartrate 25mg twice daily * cardizem CD 180mg once daily (had been on 120mg bid previously) As mentioned above in "syncope" -- pacemaker placement was discussed but remains on hold for now per Dr Thomas's recommendation. (4) Acute urinary retention: Severe. Jennings placed 07/01/20 in ER at [facility]. 800cc of urine in bladder upon insertion of jennings. CT a/p from that ER visit with b/l hydronephrosis suggesting chronic urinary obstruction. BPH the likely culprit in his urinary obstruction. Continue jennings upon discharge. Treat UTI as below. Continue Flomax. LEONID did not show signs of acute prostatitis. He will need to f/u with [facility] shortly after discharge for BPH, jennings, and UTI management. (5) Catheter-associated urinary tract infection: 2nd pansensitive pseudomonas. Received 2-days of cipro, and will take 8 more days of such at home. Again LEONID did not show a boggy/tender prostate suggesting prostatitis. (6) BPH (benign prostatic hyperplasia): Cont flomax. Cont jennings. f/u [facility] for management of this issue. (7) Hydronephrosis: b/l 2nd to urinary obstruction from BPH continue jennings continue flomax f/u [facility] (8) Hemiplegia affecting left nondominant side: Patient is significantly debilitated from a previous stroke. He will continue aspirin and eliquis for secondary stroke prevention. 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 (9) Constipation: Improved. Continue a bowel regimen at home. Constipation is 2nd to nonambulatory status. (10) Hypertension: Continue current meds. (11) Dementia: Advanced. (12) Gastroesophageal reflux disease: Consider PPI prophylaxis given his chronic aspirin & eliquis use. Home Health Attestation I certify that this patient is under my care and that I, or a physicians assistant therapy aide working with me, had a face to-face encounter that meets the home health [id number] encounter requirements with this patient. The encounter with the patient was in whole, or in part, for the following medical condition, which is the primary reason for home health care (list medical condition): Pt has existing HomeHealth for chronic health isssues. I certify that, based on my findings, the following services are medically ne cesschitina home health services: My clinical findings support the need for the above services because: Hydration / Nutrition Medication Compliance Prevention of Pressure Areas PT Assessment for Endurance / Balance / Strength PT Eval for Safety and Mobility PT Eval for Safety, Gait Training, Assistive Devices PT Gait and Balance Training, Strengthening and Safety Skilled Nsg Assessment Skilled Nsg Assess Pt Illness, Disease and Sx Monitoring S/S to Report to Provider Further, I certify that my clinical findings support that this patient is home bound (i.e. absences from home require considerable and taxing effort and are for medical reasons or baptism services or infrequently or of short duration when for other reasons) because: Maximum Assistance with All Activities Maximum Assistance with Ambulation Maximum Assistance with Ambulation and ADL's Transportation Assistance/Unable to Leave Home Unassisted Certification for Home Health Services: Based on the above findings, I certify that this patient is confined to the home and needs intermittent long term care, physical therapy and/or speech therapy or continues to need occupational therapy. The patient is under my care, and I have initiated the establishment of the plan of care. This patient will be followed by a physician who will periodically review the plan of care. Total Time Total Time Spent Total Time Spent (In Minutes): 40 Total Time Includes: Examination of the Patient, Discharge Planning, Medication Reconciliation and Communication With Other Providers Discharge Plan Discharge Items Patient Disposition: Home - Home Health Services Reason For Visit: SYMPTOMATIC BRADYCARDIA Discharge Diagnosis: 1. severe episode of bradycardia - likely due to "vasovagal" episode 2. urinary tract infection 3. enlarged prostate ("BPH") 4. recent jennings catheter placement due to #3 and fecal impaction 5. recent fecal impaction/severe constipation - resolved 6. atrial fibrillation 7. passing out spell ("syncope") due to #1 above 8. history of stroke Activity: Resume your previous activity Non-emergency contact: Primary Care Provider, Specialist and Pbx Supervisor Call non-emergency contact if: you have any medication questions, your symptoms worsen and you have a fever Follow-up/Referrals: [facility] [Provider Group] (1 week with any provider; diagnosis - BPH, urinary retention (severe, 800cc bladder retention at time of jennings placement); UTI. ) Rubio Thomas MD [Physician] - 07/29/20 11:00 am (see Dr Thomas in 2-3 weeks for a.fib ) Fritz Campos DO [Primary Care Provider] - 07/20/20 11:30 am (see Dr Campos within 1 week ) Diet: Regular Diet Texture: Easy to Chew Diet Comment: minced and moist diet Addtl Attending Provider Instructions: Mr Krishnan, You were admitted to the hospital after having had a severe episode of low blood pressure and low heart rate while at the Urology office. You lost consciousness during this spell and required several interventions at the scene. By the time you had gotten to [facility] your heart rate began to improve with medication. After admission your heart rate never again was slow. Your cardizem and metoprolol were held. As time marched forward your heart rates got fast. Your metoprolol was slowly reintroduced, and then we slowly reintroduced your cardizem. Dr Thomas from [facility] saw you in consult and felt that your passing out spell was a severe episode of "vasovagal syncope" (see handouts). Vasovagals can be quite severe at times. They occur in people of all ages. Your symptoms may have been exacerbated by the presence of a urinary tract infection. On day of discharge your heart rates are well within goal. Most of your heart rates at rest are 70s and 80s. Dr Thomas recommended the following - * resume metoprolol 25mg twice daily * restart your cardizem CD but the dose and frequency have changed; you will take 180mg once daily every morning As for the urinary tract infection and prostate please do the following - * ciprofloxacin antibiotic - take 500mg twice daily for 8 more days, first dose tomorrow morning on 07/10/20 * take probiotics once daily for 10 days * continue your tamsulosin for enlarged prostate * please KEEP THE JENNINGS in place until you follow-up with [facility] * you will need to drain the jennings bag on a regular basis * ideally [facility] sees you in about 6-7 days; hopefully the jennings can be removed in the office I performed a prostate exam today and your prostate was enlarged but likely not infected. Your recent fecal impaction is also resolved. Follow-up - see separate section Return to [facility] if - * you have fevers over 100 degrees * you have passing out spells * you have shortness of breath * you have any issues with the jennings catheter * you have chest pain * any other concerns Feel better! -Dr Tucker Pending Studies at Discharge: No Stand-Alone Forms: My [facility], Smoking Cessation Medications and DC Order Prescriptions: New diltiazem HCl 180 mg capsule,extended release 24hr 180 mg PO QAM Qty: 30 RF: 5 Continued tamsulosin [Flomax] 0.4 mg capsule 0.4 mg PO HS Qty: 90 RF: 3 Eliquis 5 mg tablet 5 mg PO BID Qty: 180 RF: 3 (DME) miscellaneous medical supply Package See Rx Instructions .ROUTE .MEDSUPPLY Qty: 1 RF: 0 (DME) miscellaneous medical supply Package See Rx Instructions .ROUTE .MEDSUPPLY Qty: 1 RF: 0 (DME) miscellaneous medical supply Package See Rx Instructions .ROUTE .MEDSUPPLY Qty: 1 RF: 0 (DME) miscellaneous medical supply Package See Rx Instructions .ROUTE .MEDSUPPLY Qty: 1 RF: 0 triamcinolone acetonide 0.1 % ointment 1 appln topical DAILY PRN (Reason: dry/red) Qty: 60 RF: 0 nitroglycerin 0.4 mg tablet, sublingual 0.4 mg SL Q5M PRN (Reason: chest pain) Qty: 25 RF: 0 lidocaine [Aspercreme (lidocaine HCl)] 4 % adhesive patch,medicated 1 patch topical DAILY PRN (Reason: Pain) RF: 0 acetaminophen [Tylenol Extra Strength] 500 mg tablet 1,000 mg PO BID Qty: 120 RF: 5 aspirin [Aspirin Low Dose] 81 mg tablet,delayed release (DR/EC) 81 mg PO QAM Qty: 30 RF: 2 memantine [Namenda] 10 mg tablet 10 mg PO BID Qty: 180 RF: 4 rivastigmine tartrate 3 mg capsule 3 mg PO QAM Qty: 30 RF: 6 polyethylene glycol 3350 [Miralax] 17 gram/dose powder 17 g PO DAILY RF: 0 cholecalciferol (vitamin D3) [Vitamin D3] 1,000 unit Capsule 1,000 unit PO QPM RF: 0 coenzyme Q10 [CoQ-10] 100 mg Capsule 100 mg PO BID RF: 0 metoprolol tartrate 25 mg Tablet 25 mg PO BID Qty: 30 RF: 0 Discharge Orders: Discharge Order (Routine); Ordered 07/09/20 Ordered By: Jez Adames/Other Patient Handouts: Treatment for Vasovagal Syncope, Understanding Vasovagal Syncope Admission Data Admit Date/Time: 07/06/20 14:06 Attending Provider: Jez Tucker Admit Provider: Aden Crenshaw Primary Care Provider: Fritz Campos Other Providers: Aden Crenshaw ; Rubio Thomas ; [facility] Other Interventions: Discharge Summary Assessment (RN) Last Done: 07/09/20 18:23 Coding Level of Care Code D/C Day Management >30 mins Diagnoses Syncope R55 Symptomatic bradycardia R00.1 Atrial fibrillation I48.21 Atrial fibrillation type: permanent Acute urinary retention R33.8 Catheter-associated urinary tract infection T83.511A; N39.0 BPH (benign prostatic hyperplasia) N40.0 Hydronephrosis N13.30 Hemiplegia affecting left nondominant side G81.94 Constipation K59.00 Constipation type: unspecified constipation type Hypertension I10 Hypertension type: unspecified Dementia F03.90 Dementia behavioral disturbance: without behavioral disturbance Dementia type: unspecified type Gastroesophageal reflux disease K21.9
== END 2020-07-09 18:46 | disposition home health service (06) | DRG 309 ==
LOC: ED 11:42 → 2S 14:06 → SUATTDRO 14:06 → 2S 15:14

== ENCOUNTER 2021-04-01 16:53 | Inpatient (IN) ==
[2021-04-01] MEDS ORDERED: SODIUM CHLORIDE 0.9% 500 ML IV SCH (17:00)
[2021-04-01] MEDS ORDERED: PIPERACILL/TAZOBAC CONSULT ACTIVE PRN ×2 (17:03→22:11)
[2021-04-01] MEDS ORDERED: PIPERACILLIN/TAZOBACTAM 4.5 GM/120 ML BAG IV ONE (17:03)
--- NOTE | 2021-04-01 17:12 | Emergency Department Note ---
History of Present Illness General Chief complaint: Urinary Symptoms Stated complaint: Urinary Symptoms Time Seen by Provider: 04/01/21 16:55 History of Present Illness 75-year-old male presents to the ED with a chief complaint of UTI. The patient's doctor called the patient's and stated he needed to come to the hospital for positive urine culture that sensitive the IV antibiotics only. The patient has a history of dementia and has no ability to provide any useful history. I did review the urine culture. 80,000 Pseudomonas species are present with sensitivities noted. Home Medications Medication Instructions Recorded Confirmed Type cholecalciferol (vitamin D3) 25 1,000 unit PO HS 02/13/18 04/01/21 History mcg (1,000 unit) capsule (Vitamin D3) coenzyme Q10 100 mg capsule 100 mg PO BID 02/13/18 04/01/21 History (CoQ-10) nitroglycerin 0.4 mg sublingual 0.4 mg SL Q5M PRN #25 tab 01/30/19 04/01/21 History tablet polyethylene glycol 3350 17 17 g PO QAM 06/04/20 04/01/21 History gram/dose oral powder (Miralax) acetaminophen 500 mg tablet 1,000 mg PO BID #120 tab 06/14/20 04/01/21 Rx (Tylenol Extra Strength) lidocaine 4 % topical patch 1 patch TOPICAL DAILY PRN 06/14/20 04/01/21 History (Aspercreme (lidocaine)) memantine 10 mg tablet (Namenda) 10 mg PO BID #180 tab 06/14/20 04/01/21 Rx disposable gloves (Disposable #1000 ea 07/21/20 12/31/20 Rx Latex-Free Gloves) aspirin 81 mg tablet,delayed 81 mg PO QAM #90 tab 09/08/20 04/01/21 Rx release (Aspirin Low Dose) diltiazem HCl 180 mg 180 mg PO QAM #30 cap 10/27/20 04/01/21 Rx capsule,extended release 24 hr tamsulosin 0.4 mg capsule (Flomax) 0.4 mg PO HS #90 cap 11/22/20 04/01/21 Rx metoprolol tartrate 25 mg tablet 25 mg PO BID #180 tab 12/15/20 04/01/21 Rx apixaban 5 mg tablet (Eliquis) 5 mg PO BID 12/28/20 04/01/21 History bisacodyl 10 mg rectal suppository 10 mg MN DAILY PRN 12/28/20 04/01/21 History (Dulcolax (bisacodyl)) docusate sodium 100 mg capsule 100 mg PO BID 12/28/20 04/01/21 History (Colace) rivastigmine tartrate 3 mg capsule 3 mg PO QAM cap 12/31/20 04/01/21 History ciprofloxacin HCl 500 mg tablet 500 mg PO BID #14 tab 03/30/21 04/01/21 Rx (Cipro) Allergies Allergy/AdvReac Type Severity Reaction Status Date / Time isopropyl alcohol Allergy Severe RUBBING Verified 04/01/21 17:42 ALCOHOL - SHORTNESS OF BREATH adhesive Allergy Intermediate BLISTERS Verified 04/01/21 17:42 escitalopram Allergy Unknown UNSURE-DOES Verified 04/01/21 17:42 NOT KNOW oxycodone AdvReac Mild CONFUSION Verified 04/01/21 17:42 lisinopril AdvReac Unknown elevated Verified 04/01/21 17:42 creatinine Past Med/Surg History Medical History Acute hypotension Acute kidney injury Acute urinary retention Atrial fibrillation with RVR CAD (coronary artery disease) CAD (coronary artery disease) CHF (congestive heart failure) Closed fracture of radial head Constipation CVA (cerebral vascular accident) Gastroesophageal reflux disease Hyperlipidemia Hypertension Ileus Nephrolithiasis BARBARA (obstructive sleep apnea) Small bowel obstruction Symptomatic bradycardia Urinary retention Surgical History History of knee replacement History of PTCA Family History Father Stroke Mother Myocardial infarction Aunt Diabetes Family/Other Heart disease Hypertension Nephrolithiasis Other Dementia Denies family history of Prostate cancer Social History Smoking Status: Never smoker Second Hand Exposure: No; Hx Alcohol Use: No Hx Substance Use: No Preferred Language: Lao Communication Ability: Impaired Visual Impairment: Limited Hearing Ability: Normal Manager Financial Planning Required: No Beliefs That Will Affect Care: None marital status: Current Living Situation: Spouse current occupational status: retired Feels Safe at Home: Yes Childhood Exposure to Second-Hand Smoke: Yes caffeine: No Physical Activity Frequency: Does not Exercise Seatbelt Use: always Sunscreen Use: No (not in the sun) Assistive Devices: Mechanical Lift Review of Systems Unobtainable due to cognitive status Physical Exam Vital Signs Vital Signs - 24 hr 04/01/21 16:58 04/01/21 17:03 04/01/21 17:12 Temperature 36.7 C Temperature Source Oral Pulse Rate 87 84 Pulse Rate from SpO2 Sensor 84 Respiratory Rate 18 12 Blood Pressure 165/90 H Blood Pressure Mean 115 Pulse Oximetry 97 96 97 Oxygen Delivery Method Room Air Room Air Sepsis Recent Fever Within 48 Hours No Sepsis New/Unexplained Change in Mental Status No Sepsis Action Taken by Nursing No Action Required 04/01/21 17:20 Temperature Temperature Source Pulse Rate 74 Pulse Rate from SpO2 Sensor 78 Respiratory Rate 20 Blood Pressure 162/90 H Blood Pressure Mean 114 Pulse Oximetry 97 Oxygen Delivery Method Sepsis Recent Fever Within 48 Hours Sepsis New/Unexplained Change in Mental Status Sepsis Action Taken by Nursing CONSTITUTIONAL/VITAL SIGNS: Reviewed / noted above. GENERAL: Non-toxic in appearance. INTEGUMENTARY: Warm, dry, and [place]. HEAD: Normocephalic. EYES: without scleral icterus or trauma. ENT/OROPHARYNX: clear and moist. LYMPHADENOPATHY/NECK: Is supple without lymphadenopathy or meningismus. RESPIRATORY: Clear to auscultation bilaterally. No increased work of breathing. CARDIOVASCULAR: Regular rate and rhythm. GI/ABDOMEN: Soft and nontender. No organomegaly or pulsatile mass. EXTREMITIES: Warm and well perfused. BACK: No CVA tenderness. NEUROLOGICAL: Intact without focal deficits. PSYCHIATRIC: normal affect. MUSCULOSKELETAL: Normally developed with good muscle tone. TRIAGE NURSING DOCUMENTATION REVIEWED. Course Administered Medications Discontinued Medications Sodium Chloride (Nss) 500 mls @ 999 mls/hr IV .Q31M ANTONIO Stop: 04/01/21 17:30 Last Infusion: 04/01/21 17:54 Dose: 0 mls/hr Documented by: [id number] Admin: 04/01/21 17:19 Dose: 999 mls/hr Documented by: [id number] Piperacillin Sod/Tazobactam Sod (Zosyn) 4.5 gm in 120 mls @ 240 mls/hr IV NOW ONE Stop: 04/01/21 17:32 Last Infusion: 04/01/21 17:54 Dose: 0 mls/hr Documented by: [id number] Admin: 04/01/21 17:19 Dose: 240 mls/hr Documented by: [id number] Medical Decision Making Differential Diagnosis Differential includes acute coronary syndrome, myocardial infarction, CVA, TIA, anemia, infection, pneumonia, UTI, pyelonephritis, poor nutrition, dehydration, electrolyte disturbance,hypoglycemia. Medical Records Attestation: I reviewed the patient's medical records. Home Medications Current Medication List: was personally reviewed by me Laboratory Data Attestation: I reviewed the patient's lab results. Result diagrams: 04/01/21 17:10 04/01/21 17:10 Lab Results 04/01/21 04/01/21 04/01/21 Range/Units 17:05 17:10 17:10 WBC 6.94 (4.8-10.8) K/uL RBC 4.55 L (4.7-6.1) M/uL Hgb 14.3 (14.0-18.0) g/dL Hct 43.5 (42-52) % MCV 95.6 (80-100) fL MCH 31.4 (25-34) pg MCHC 32.9 (32-36) g/dL RDW Std Deviation 50.0 H (36.4-46.3) fL RDW Coeff of Alex 14.3 (11.5-14.5) % Plt Count 194 (130-400) K/uL MPV 10.2 (7.4-10.4) fL Immature Gran % (Auto) 0.3 % Neut % (Auto) 54.5 % Lymph % (Auto) 31.3 % [place] % (Auto) 9.9 % Eos % (Auto) 3.6 % Baso % (Auto) 0.4 % Neut # (Auto) 3.78 (1.4-6.5) K/uL Lymph # (Auto) 2.17 (1.2-3.4) K/uL [place] # (Auto) 0.69 H (0.11-0.59) K/uL Eos # (Auto) 0.25 (0-0.5) K/uL Baso # (Auto) 0.03 (0-0.2) K/uL Immature Gran # (Auto) 0.02 (0.00-0.02) K/uL Sodium 136 (136-145) mmol/L Potassium 4.0 (3.5-5.1) mmol/L Chloride 102 (98-107) mmol/L Carbon Dioxide 26 (21-32) mmol/L Anion Gap 8 (3-11) BUN 19 (6-23) mg/dl Creatinine 0.95 (0.6-1.4) mg/dl Est Cr Clr Drug Dosing 70.4 ml/min Est GFR ( Amer) 91.0 ml/min Est GFR (Non-Af Amer) 78.5 ml/min BUN/Creatinine Ratio 20.0 (10-20) Glucose 101 H (70-99(Fasting)) mg/dl Calcium 9.3 (8.5-10.1) mg/dl Total Bilirubin 0.4 (0.2-1.0) mg/dl AST 13 (13-39) U/L ALT 9 (7-52) U/L Alkaline Phosphatase 132 H (34-104) U/L Total Protein 7.5 (6.0-8.3) gm/dl Albumin 3.8 (3.4-5.0) gm/dl Globulin 3.7 (2.5-4.0) gm/dl Albumin/Globulin Ratio 1.0 (0.9-2) Urine Color Yellow Urine Appearance Clear (Clear) Urine pH 5.5 (4.5-7.5) Ur Specific [place] 1.011 (1.000-1.030) Urine Protein Negative (Negative) Urine Glucose (UA) Negative (Negative) Urine Ketones Negative (Negative) Urine Blood Negative (Negative) Urine Nitrite Negative (Negative) Urine Bilirubin Negative (Negative) Urine Urobilinogen Negative (Negative) Ur Leukocyte Esterase Trace H (Negative) Urine WBC (Auto) 1-5 (0-5) /hpf Urine RBC (Auto) 0-4 (0-4) /hpf U Hyaline Cast (Auto) 1-5 (0-5) /lpf U Epithel Cells (Auto) 10-20 H (0-5) /lpf Urine Bacteria (Auto) Negative (Negative) SARS-CoV-2, RNA, NAAT (NEGATIVE) 04/01/21 Range/Units 17:12 WBC (4.8-10.8) K/uL RBC (4.7-6.1) M/uL Hgb (14.0-18.0) g/dL Hct (42-52) % MCV (80-100) fL MCH (25-34) pg MCHC (32-36) g/dL RDW Std Deviation (36.4-46.3) fL RDW Coeff of Alex (11.5-14.5) % Plt Count (130-400) K/uL MPV (7.4-10.4) fL Immature Gran % (Auto) % Neut % (Auto) % Lymph % (Auto) % [place] % (Auto) % Eos % (Auto) % Baso % (Auto) % Neut # (Auto) (1.4-6.5) K/uL Lymph # (Auto) (1.2-3.4) K/uL [place] # (Auto) (0.11-0.59) K/uL Eos # (Auto) (0-0.5) K/uL Baso # (Auto) (0-0.2) K/uL Immature Gran # (Auto) (0.00-0.02) K/uL Sodium (136-145) mmol/L Potassium (3.5-5.1) mmol/L Chloride (98-107) mmol/L Carbon Dioxide (21-32) mmol/L Anion Gap (3-11) BUN (6-23) mg/dl Creatinine (0.6-1.4) mg/dl Est Cr Clr Drug Dosing ml/min Est GFR ( Amer) ml/min Est GFR (Non-Af Amer) ml/min BUN/Creatinine Ratio (10-20) Glucose (70-99(Fasting)) mg/dl Calcium (8.5-10.1) mg/dl Total Bilirubin (0.2-1.0) mg/dl AST (13-39) U/L ALT (7-52) U/L Alkaline Phosphatase (34-104) U/L Total Protein (6.0-8.3) gm/dl Albumin (3.4-5.0) gm/dl Globulin (2.5-4.0) gm/dl Albumin/Globulin Ratio (0.9-2) Urine Color Urine Appearance (Clear) Urine pH (4.5-7.5) Ur Specific [place] (1.000-1.030) Urine Protein (Negative) Urine Glucose (UA) (Negative) Urine Ketones (Negative) Urine Blood (Negative) Urine Nitrite (Negative) Urine Bilirubin (Negative) Urine Urobilinogen (Negative) Ur Leukocyte Esterase (Negative) Urine WBC (Auto) (0-5) /hpf Urine RBC (Auto) (0-4) /hpf U Hyaline Cast (Auto) (0-5) /lpf U Epithel Cells (Auto) (0-5) /lpf Urine Bacteria (Auto) (Negative) SARS-CoV-2, RNA, NAAT NEGATIVE (NEGATIVE) Imaging Data Radiologist's Impression: Chest X-Ray 04/01/21 17:04 XR chest 1V portable CLINICAL HISTORY: confusion TECHNIQUE: Single frontal radiograph of the chest was obtained. Comparison: Comparison is made to chest one view 12/28/2020 FINDINGS: No lines and tubes are seen. Cardiomegaly is noted. The lungs are clear. No evidence of pleural effusion or pneumothorax. IMPRESSION: No acute chest disease. Cardiomegaly is noted.. ACT 112: Negative or not required by law. Electronically signed by: Kye Healy M.D. 04/01/2021 5:29 PM MDM Narrative 75-year-old male presents with a positive urine culture. He has history of dementia and is unable to provide any adequate history. History was obtained from EMS and family. The patient's urine culture shows Pseudomonas. Sensitive to Zosyn. IV Zosyn was administered. The patient's urinalysis here did not appear significantly abnormal. The patient has been on Cipro for the past couple of days. Despite Cipro being resistant, this may have helped some. His CBC and chemistry panel was unremarkable. Covid test was negative. Chest x-ray was negative for acute disease. Because of the culture, the patient will be seen by the hospitalist for further inpatient evaluation and care. Impression & Plan UTI (urinary tract infection) Discharge Plan Visit Data Chief Complaint: Urinary Symptoms Stated Complaint: Urinary Symptoms ED Provider: Kleber Marie Discharge Problem: UTI (urinary tract infection) Patient Disposition: Being Evaluated by Hospitalist Forms Stand Alone Forms: [facility] [employer] Prescriptions Prescriptions: No Action (DME) disposable gloves [Disposable Latex-Free Gloves] Misc See Rx Instructions .ROUTE .MEDSUPPLY Qty: 1000 RF: 3 aspirin [Aspirin Low Dose] 81 mg tablet,delayed release (DR/EC) 81 mg PO QAM Qty: 90 RF: 3 diltiazem HCl 180 mg capsule,extended release 24hr 180 mg PO QAM Qty: 30 RF: 5 tamsulosin [Flomax] 0.4 mg capsule 0.4 mg PO HS Qty: 90 RF: 3 ciprofloxacin HCl [Cipro] 500 mg tablet 500 mg PO BID Qty: 14 RF: 0 nitroglycerin 0.4 mg tablet, sublingual 0.4 mg SL Q5M PRN (Reason: chest pain) Qty: 25 RF: 0 rivastigmine tartrate 3 mg capsule 3 mg PO QAM RF: 0 lidocaine [Aspercreme (lidocaine HCl)] 4 % adhesive patch,medicated 1 patch topical DAILY PRN (Reason: Pain) RF: 0 acetaminophen [Tylenol Extra Strength] 500 mg tablet 1,000 mg PO BID Qty: 120 RF: 5 memantine [Namenda] 10 mg tablet 10 mg PO BID Qty: 180 RF: 4 polyethylene glycol 3350 [Miralax] 17 gram/dose powder 17 g PO QAM RF: 0 metoprolol tartrate 25 mg tablet 25 mg PO BID Qty: 180 RF: 3 cholecalciferol (vitamin D3) [Vitamin D3] 1,000 unit Capsule 1,000 unit PO HS RF: 0 coenzyme Q10 [CoQ-10] 100 mg Capsule 100 mg PO BID RF: 0 bisacodyl [Dulcolax (bisacodyl)] 10 mg Suppository 10 mg MN DAILY PRN (Reason: Constipation) RF: 0 docusate sodium [Colace] 100 mg Capsule 100 mg PO BID RF: 0 Eliquis 5 mg tablet 5 mg PO BID RF: 0 Referrals Referrals: Fritz Campos DO [Primary Care Provider] -
[2021-04-01 17:20] LABS: Basophils # (auto) 0.03 K/uL (0-0.2); Basophils % (auto) 0.4 %; Eosinophils # (auto) 0.25 K/uL (0-0.5); Eosinophils % (auto) 3.6 %; Hematocrit (blood only) 43.5 % (42-52); Hemoglobin 14.3 g/dL (14.0-18.0); Immature Granulocytes # (auto) 0.02 K/uL (0.00-0.02); Immature Granulocytes % (auto) 0.3 %; Lymphocytes # (auto) 2.17 K/uL (1.2-3.4); Lymphocytes % (auto) 31.3 %; Mean Corpuscular Hemoglobin 31.4 pg (25-34); Mean Corpuscular Hgb Conc 32.9 g/dL (32-36); Mean Corpuscular Volume 95.6 fL (80-100); Mean Platelet Volume 10.2 fL (7.4-10.4); Monocytes # (auto) 0.69 K/uL (0.11-0.59); Monocytes % (auto) 9.9 %; Neutrophils # (auto) 3.78 K/uL (1.4-6.5); Neutrophils % (auto) 54.5 %; Platelet Count 194 K/uL (130-400); RDW Coefficient of Variation 14.3 % (11.5-14.5); Red Blood Count 4.55 M/uL (4.7-6.1); White Blood Count 6.94 K/uL (4.8-10.8)
--- NOTE | 2021-04-01 17:30 | XRay Report ---
XR chest 1V portable CLINICAL HISTORY: confusion TECHNIQUE: Single frontal radiograph of the chest was obtained. Comparison: Comparison is made to chest one view 12/28/2020 FINDINGS: No lines and tubes are seen. Cardiomegaly is noted. The lungs are clear. No evidence of pleural effus ion or pneumothorax. IMPRESSION: No acute chest disease. Cardiomegaly is noted.. ACT 112: Negative or not required by law. Electronically signed by: Kye Healy M.D. 04/01/2021 5:29 PM
[2021-04-01 17:32] LABS: Appearance Urine Clear (Clear); Bacteria Urine Automated Negative (Negative); Bilirubin Urine Negative (Negative); Blood Urine Negative (Negative); Color Urine Yellow; Glucose Urine UA Negative (Negative); Ketones Urine Negative (Negative); Leukocyte Esterase Urine Trace (Negative); Nitrite Urine Negative (Negative); Protein Urine Negative (Negative); RBC Urine Automated 0-4 /hpf (0-4); Specific Gravity Urine 1.011 (1.000-1.030); Urobilinogen Urine Negative (Negative); pH Urine 5.5 (4.5-7.5)
[2021-04-01 17:44] LABS: Albumin Level 3.8 gm/dl (3.4-5.0); Bilirubin,Total 0.4 mg/dl (0.2-1.0); Calcium 9.3 mg/dl (8.5-10.1); Creatinine Clr Calc Pharmacy 70.4 ml/min; Est GFR (Non-African American) 78.5 ml/min; Globulin 3.7 gm/dl (2.5-4.0); Total Protein 7.5 gm/dl (6.0-8.3)
--- NOTE | 2021-04-01 20:13 | History & Physical Report ---
Date of Service April 01, 2021 Assessment & Plan (1) UTI (urinary tract infection): Plan: Afebrile, HD stable, nontoxic in appearance Urine cx from 03/30/21 POSITIVE for Pseudomonas and GPC -Follow cultures -Continue Zosyn (2) Dementia: Plan: Chronic -Frequent orientation -Avoid delirium inducing agents -Continue Memantine 10mg po BID -Continue Rivastigmine (3) Atrial fibrillation with RVR: Plan: Rate controlled -Continue Apixaban 5mg po BID -Continue Diltiazem and Metoprolol (4) BPH (benign prostatic hyperplasia): Plan: Chronic -Continue Flomax -Bladder scan as needed History of Present Illness Chief Complaint: myoclonic jerking Primary Care Provider: Fritz Campos DO Ricardo Krishnan is a 75yo male with history of CVA with debility - bedbound, unable to walk - patient with dementia. Presents with worsening myoclonic jerking, concern for UTI. Urine culture from PCP POSITIVE for Pseudomonas Patient with no additional complaints. with no concerns. Allergies Allergy/AdvReac Type Severity Reaction Status Date / Time isopropyl alcohol Allergy Severe RUBBING Verified 04/01/21 17:42 ALCOHOL - SHORTNESS OF BREATH adhesive Allergy Intermediate BLISTERS Verified 04/01/21 17:42 escitalopram Allergy Unknown UNSURE-DOES Verified 04/01/21 17:42 NOT KNOW oxycodone AdvReac Mild CONFUSION Verified 04/01/21 17:42 lisinopril AdvReac Unknown elevated Verified 04/01/21 17:42 creatinine Home Medications Medication Instructions Recorded Confirmed Type cholecalciferol (vitamin D3) 25 1,000 unit PO HS 02/13/18 04/01/21 History mcg (1,000 unit) capsule (Vitamin D3) coenzyme Q10 100 mg capsule 100 mg PO BID 02/13/18 04/01/21 History (CoQ-10) nitroglycerin 0.4 mg sublingual 0.4 mg SL Q5M PRN #25 tab 01/30/19 04/01/21 History tablet polyethylene glycol 3350 17 17 g PO QAM 06/04/20 04/01/21 History gram/dose oral powder (Miralax) acetaminophen 500 mg tablet 1,000 mg PO BID #120 tab 06/14/20 04/01/21 Rx (Tylenol Extra Strength) lidocaine 4 % topical patch 1 patch TOPICAL DAILY PRN 06/14/20 04/01/21 History (Aspercreme (lidocaine)) memantine 10 mg tablet (Namenda) 10 mg PO BID #180 tab 06/14/20 04/01/21 Rx disposable gloves (Disposable #1000 ea 07/21/20 12/31/20 Rx Latex-Free Gloves) aspirin 81 mg tablet,delayed 81 mg PO QAM #90 tab 09/08/20 04/01/21 Rx release (Aspirin Low Dose) diltiazem HCl 180 mg 180 mg PO QAM #30 cap 10/27/20 04/01/21 Rx capsule,extended release 24 hr tamsulosin 0.4 mg capsule (Flomax) 0.4 mg PO HS #90 cap 11/22/20 04/01/21 Rx metoprolol tartrate 25 mg tablet 25 mg PO BID #180 tab 12/15/20 04/01/21 Rx apixaban 5 mg tablet (Eliquis) 5 mg PO BID 12/28/20 04/01/21 History bisacodyl 10 mg rectal suppository 10 mg UT DAILY PRN 12/28/20 04/01/21 History (Dulcolax (bisacodyl)) docusate sodium 100 mg capsule 100 mg PO BID 12/28/20 04/01/21 History (Colace) rivastigmine tartrate 3 mg capsule 3 mg PO QAM cap 12/31/20 04/01/21 History ciprofloxacin HCl 500 mg tablet 500 mg PO BID #14 tab 03/30/21 04/01/21 Rx (Cipro) Past Med/Surg History Medical History Acute hypotension Acute kidney injury Acute urinary retention Atrial fibrillation with RVR CAD (coronary artery disease) CAD (coronary artery disease) CHF (congestive heart failure) Closed fracture of radial head Constipation CVA (cerebral vascular accident) Gastroesophageal reflux disease Hyperlipidemia Hypertension Ileus Nephrolithiasis BARBARA (obstructive sleep apnea) Small bowel obstruction Symptomatic bradycardia Urinary retention Surgical History History of knee replacement History of PTCA Family History Father Stroke Mother Myocardial infarction Aunt Diabetes Family/Other Heart disease Hypertension Nephrolithiasis Other Dementia Denies family history of Prostate cancer Social History Smoking Status: Never smoker Second Hand Exposure: No; Hx Alcohol Use: No Hx Substance Use: No Preferred Language: Jamaican Communication Ability: Impaired Communication Ability Comment: dementia/CVA Visual Impairment: Limited Hearing Ability: Normal Special Effects Designer Required: No Beliefs That Will Affect Care: None marital status: Current Living Situation: Spouse current occupational status: retired Feels Safe at Home: Yes Safety Concerns: Feels Safe At This Time Childhood Exposure to Second-Hand Smoke: Yes caffeine: No Physical Activity Frequency: Does not Exercise Seatbelt Use: always Sunscreen Use: No (not in the sun) Assistive Devices: Mechanical Lift Review of Systems Review of Systems: All systems reviewed & are unremarkable except as noted in HPI & below Physical Exam Physical Exam: General: patient resting comfortably, NAD, non-toxic in appearance, AA&O to self and location Skin: warm, dry, intact, no rashes or lesions HEENT: NC/AT, PERRL, EOMI, anicteric sclera, conjunctiva without injection, external ear normal to inspection and nontender, nares patent, moist mucus membranes, dentition intact, no oropharyngeal lesions, neck supple, trachea midline, no LAD, no thyromegaly, no JVD Heart: +S1/S2, regular, no m/r/g Lungs: equal air entry bilaterally, no rales/rhonchi/wheezes Abd: +BS, soft, NT/ND, no masses/organomegaly/ascites Ext: warm, 2+ pulses in UE/LE bilaterally, no clubbing/cyanosis or edema Neuro:unable to move legs or LUE Results & Data Results & Data ([facility]) Vital Signs (Past 12 Hours) Vital Signs Temp Pulse Resp BP Pulse Ox 04/01/21 19:30 91 H 16 122/80 83 L 04/01/21 19:00 87 22 151/83 H 04/01/21 18:30 80 17 152/78 H 04/01/21 18:00 89 18 167/88 H 94 04/01/21 17:30 91 H 20 146/89 H 96 04/01/21 17:20 74 20 162/90 H 97 04/01/21 17:12 84 12 97 04/01/21 17:03 96 04/01/21 16:58 36.7 C 87 18 165/90 H 97 Laboratory Results Laboratory Results WBC 6.94 K/uL (4.8-10.8) 04/01/21 17:10 RBC 4.55 M/uL (4.7-6.1) L 04/01/21 17:10 Hgb 14.3 g/dL (14.0-18.0) 04/01/21 17:10 Hct 43.5 % (42-52) 04/01/21 17:10 MCV 95.6 fL (80-100) 04/01/21 17:10 MCH 31.4 pg (25-34) 04/01/21 17:10 MCHC 32.9 g/dL (32-36) 04/01/21 17:10 RDW Std Deviation 50.0 fL (36.4-46.3) H 04/01/21 17:10 RDW Coeff of Alex 14.3 % (11.5-14.5) 04/01/21 17:10 Plt Count 194 K/uL (130-400) 04/01/21 17:10 MPV 10.2 fL (7.4-10.4) 04/01/21 17:10 Immature Gran % (Auto) 0.3 % 04/01/21 17:10 Neut % (Auto) 54.5 % 04/01/21 17:10 Lymph % (Auto) 31.3 % 04/01/21 17:10 [place] % (Auto) 9.9 % 04/01/21 17:10 Eos % (Auto) 3.6 % 04/01/21 17:10 Baso % (Auto) 0.4 % 04/01/21 17:10 Neut # (Auto) 3.78 K/uL (1.4-6.5) 04/01/21 17:10 Lymph # (Auto) 2.17 K/uL (1.2-3.4) 04/01/21 17:10 [place] # (Auto) 0.69 K/uL (0.11-0.59) H 04/01/21 17:10 Eos # (Auto) 0.25 K/uL (0-0.5) 04/01/21 17:10 Baso # (Auto) 0.03 K/uL (0-0.2) 04/01/21 17:10 Immature Gran # (Auto) 0.02 K/uL (0.00-0.02) 04/01/21 17:10 Sodium 136 mmol/L (136-145) 04/01/21 17:10 Potassium 4.0 mmol/L (3.5-5.1) 04/01/21 17:10 Chloride 102 mmol/L (98-107) 04/01/21 17:10 Carbon Dioxide 26 mmol/L (21-32) 04/01/21 17:10 Anion Gap 8 (3-11) 04/01/21 17:10 BUN 19 mg/dl (6-23) 04/01/21 17:10 Creatinine 0.95 mg/dl (0.6-1.4) 04/01/21 17:10 Est Cr Clr Drug Dosing 70.4 ml/min 04/01/21 17:10 Est GFR ( Amer) 91.0 ml/min 04/01/21 17:10 Est GFR (Non-Af Amer) 78.5 ml/min 04/01/21 17:10 BUN/Creatinine Ratio 20.0 (10-20) 04/01/21 17:10 Glucose 101 mg/dl (70-99(Fasting)) H 04/01/21 17:10 Calcium 9.3 mg/dl (8.5-10.1) 04/01/21 17:10 Phosphorus 3.8 mg/dl (2.5-4.9) 04/01/21 22:19 Magnesium 2.0 mg/dl (1.7-2.4) 04/01/21 22:19 Total Bilirubin 0.4 mg/dl (0.2-1.0) 04/01/21 17:10 AST 13 U/L (13-39) 04/01/21 17:10 ALT 9 U/L (7-52) 04/01/21 17:10 Alkaline Phosphatase 132 U/L (34-104) H 04/01/21 17:10 Total Protein 7.5 gm/dl (6.0-8.3) 04/01/21 17:10 Albumin 3.8 gm/dl (3.4-5.0) 04/01/21 17:10 Globulin 3.7 gm/dl (2.5-4.0) 04/01/21 17:10 Albumin/Globulin Ratio 1.0 (0.9-2) 04/01/21 17:10 Urine Color Yellow 04/01/21 17:05 Urine Appearance Clear (Clear) 04/01/21 17:05 Urine pH 5.5 (4.5-7.5) 04/01/21 17:05 Ur Specific [place] 1.011 (1.000-1.030) 04/01/21 17:05 Urine Protein Negative (Negative) 04/01/21 17:05 Urine Glucose (UA) Negative (Negative) 04/01/21 17:05 Urine Ketones Negative (Negative) 04/01/21 17:05 Urine Blood Negative (Negative) 04/01/21 17:05 Urine Nitrite Negative (Negative) 04/01/21 17:05 Urine Bilirubin Negative (Negative) 04/01/21 17:05 Urine Urobilinogen Negative (Negative) 04/01/21 17:05 Ur Leukocyte Esterase Trace (Negative) H 04/01/21 17:05 Urine WBC (Auto) 1-5 /hpf (0-5) 04/01/21 17:05 Urine RBC (Auto) 0-4 /hpf (0-4) 04/01/21 17:05 U Hyaline Cast (Auto) 1-5 /lpf (0-5) 04/01/21 17:05 U Epithel Cells (Auto) 10-20 /lpf (0-5) H 04/01/21 17:05 Urine Bacteria (Auto) Negative (Negative) 04/01/21 17:05 SARS-CoV-2, RNA, NAAT NEGATIVE (NEGATIVE) 04/01/21 17:12 Impressions Chest X-Ray 04/01/21 22:11 XR chest 1V portable CLINICAL HISTORY: SOB TECHNIQUE: Single frontal radiograph of the chest was obtained. Comparison: None available at the time of this dictation. FINDINGS: No lines and tubes are seen. Cardiomegaly is noted. The lungs are clear. No evidence of pleural effusion or pneumothorax. IMPRESSION: No acute chest disease. ACT 112: Negative or not required by law. Electronically signed by: Kye Healy M.D. 04/01/2021 10:30 PM Code Status & VTE Plan VTE Prophylaxis Plan VTE Prophylaxis will be ordered: Yes PG Care Time/CCT Total # of Minutes Spent Total Time Spent with Patient: Total time spent is greater than 50% in coordination of care (as documented) at patient's floor/unit and/or counseling patient: Coding Level of Care Code 98020 Initial Inpt Care Lvl 2 Diagnoses UTI (urinary tract infection) N39.0 Dementia F03.90 Atrial fibrillation with RVR I48.91 BPH (benign prostatic hyperplasia) N40.0
[2021-04-01] MEDS ORDERED: bisacodyL 10 MG SUPP PR PRN (22:11)
[2021-04-01] MEDS ORDERED: ONDANSETRON INJ 2 MG/ML 2 ML VIAL IV PRN (22:11)
--- NOTE | 2021-04-01 22:31 | XRay Report ---
XR chest 1V portable CLINICAL HISTORY: SOB TECHNIQUE: Single frontal radiograph of the chest was obtained. Comparison: None available at the time of this dictation. FINDINGS: No lines and tubes are seen. Cardiomegaly is noted. The lungs are clear. No evidence of pleural effus ion or pneumothorax. IMPRESSION: No acute chest disease. ACT 112: Negative or not required by law. Electronically signed by: Kye Healy M.D. 04/01/2021 10:30 PM
[2021-04-01 22:47] LABS: Phosphorus 3.8 mg/dl (2.5-4.9)
[2021-04-01] MEDS: MEMANTINE HCL 10 MG TAB PO SCH (23:22)
[2021-04-01] MEDS: DOCUSATE SODIUM 100 MG CAP PO SCH (23:22)
[2021-04-01] MEDS: TAMSULOSIN HCL 0.4 MG CAP PO SCH (23:22)
[2021-04-01] MEDS: CHOLECALCIFEROL 1,000 UNITS 25 MCG TAB PO SCH (23:23)
[2021-04-01] MEDS: APIXABAN 5 MG TABLET PO SCH (23:23)
[2021-04-01] MEDS: METOPROLOL TARTRATE 25 MG TAB PO SCH (23:24)
[2021-04-01] MEDS: PIPERACILLIN/TAZOBACTAM 3.375 GM in DEXTROSE 5% 100 ML IV SCH (23:24)
[2021-04-02] MEDS: MEMANTINE HCL 10 MG TAB PO SCH ×2 (07:43→20:34)
[2021-04-02] MEDS: RIVASTIGMINE TARTRATE 1.5 MG CAP PO SCH (07:43)
[2021-04-02] MEDS: POLYETHYLENE (MIRALAX) 17 GM PACK PO SCH (07:43)
[2021-04-02] MEDS: DOCUSATE SODIUM 100 MG CAP PO SCH ×2 (07:43→20:34)
[2021-04-02] MEDS: APIXABAN 5 MG TABLET PO SCH ×2 (07:43→20:34)
[2021-04-02] MEDS: dilTIAZem HCL 180 MG CAPCR PO SCH (07:43)
--- NOTE | 2021-04-02 08:14 | Hospitalist Progress Note ---
Date of Service April 02, 2021 Assessment & Plan (1) UTI (urinary tract infection): Plan: Afebrile, HD stable, nontoxic in appearance Urine cx from 03/30/21 POSITIVE for Pseudomonas and GPC -Follow cultures so far no significant results -Continue Zosyn sensitive for his previous prehospital cultures (2) Dementia: Plan: Chronic -Frequent orientation -Avoid delirium inducing agents -Continue Memantine 10mg po BID -Continue Rivastigmine (3) Atrial fibrillation with RVR: Plan: Rate controlled -Continue Apixaban 5mg po BID -Continue Diltiazem and Metoprolol (4) BPH (benign prostatic hyperplasia): Plan: Chronic -Continue Flomax -Bladder scan as needed Plan: Will likely need to assure PT OT consultation Apixaban is DVT prevention Admission and Anticipated Discharge Date Admission Date: April 01, 2021 Subjective Patient is pleasantly demented in no significant distress. Outpatient labs do show him to have a Pseudomonas UTI resistant to quinolones and also staph aureus present on 03/30/2021 patient was started on Zosyn therapy upon ER presentation continues on this until sensitivities are returned Review of Systems Review of Systems: Unobtainable due to cognitive status Physical Exam Physical Exam: The patient appeared well nourished and normally developed. Vital signs as documented. Head exam is normocephalic atraumatic Neck is without JVD, thyromegaly, or carotid bruits. Lungs are clear to auscultation, no focal loss of breath sounds Cardiac exam, Rhythm is regular.. No murmurs, rubs or gallops. Abdominal exam reveals normal bowel sounds, soft non tender, no masses Extremities are nonedematous and both pedal pulses are present Neurologic exam is alert and follows some commands is hard of hearing and not very talkative Skin is without bruises or rashes Psychologically is without concerns for anxiety or depression.. Results & Data Results & Data ([facility]) Vital Signs (Past 12 Hours) Vital Signs Temp Pulse Pulse Resp BP Pulse Ox 04/02/21 06:06 97.7 F 85 16 145/89 H 97 04/01/21 22:00 97.9 F 79 16 163/91 H 95 PG Care Time/CCT Total # of Minutes Spent Total Time Spent with Patient: Total time spent is greater than 50% in coordination of care (as documented) at patient's floor/unit and/or counseling patient: Coding Level of Care Code 96141 Subseq Hosp Care Lvl 2 Diagnoses UTI (urinary tract infection) N39.0 Dementia F03.90 Atrial fibrillation with RVR I48.91 BPH (benign prostatic hyperplasia) N40.0
[2021-04-02] MEDS: PIPERACILLIN/TAZOBACTAM 3.375 GM in DEXTROSE 5% 100 ML IV SCH ×2 (08:43→16:09)
[2021-04-02] MEDS: METOPROLOL TARTRATE 25 MG TAB PO SCH ×2 (09:25→20:35)
[2021-04-02 11:21] LABS: Basophils # (auto) 0.05 K/uL (0-0.2); Basophils % (auto) 0.6 %; Eosinophils # (auto) 0.24 K/uL (0-0.5); Hematocrit (blood only) 42.6 % (42-52); Immature Granulocytes # (auto) 0.02 K/uL (0.00-0.02); Immature Granulocytes % (auto) 0.2 %; Lymphocytes # (auto) 1.42 K/uL (1.2-3.4); Lymphocytes % (auto) 17.7 %; Mean Corpuscular Hgb Conc 32.9 g/dL (32-36); Mean Corpuscular Volume 94.5 fL (80-100); Monocytes # (auto) 0.45 K/uL (0.11-0.59); Monocytes % (auto) 5.6 %; Neutrophils # (auto) 5.85 K/uL (1.4-6.5); Neutrophils % (auto) 72.9 %; Platelet Count 198 K/uL (130-400); RDW Coefficient of Variation 14.3 % (11.5-14.5); RDW Standard Deviation 49.4 fL (36.4-46.3); Red Blood Count 4.51 M/uL (4.7-6.1); White Blood Count 8.03 K/uL (4.8-10.8)
[2021-04-02 11:43] LABS: Albumin Level 3.7 gm/dl (3.4-5.0); BUN Creatinine Ratio 20.2 (10-20); Bilirubin,Total 0.5 mg/dl (0.2-1.0); Creatinine Clr Calc Pharmacy 79.7 ml/min; Est GFR (Non-African American) 86.3 ml/min; Potassium 3.8 mmol/L (3.5-5.1); Total Protein 7.3 gm/dl (6.0-8.3)
[2021-04-02] MEDS: CHOLECALCIFEROL 1,000 UNITS 25 MCG TAB PO SCH (20:34)
[2021-04-02] MEDS: TAMSULOSIN HCL 0.4 MG CAP PO SCH (20:34)
[2021-04-03] MEDS: PIPERACILLIN/TAZOBACTAM 3.375 GM in DEXTROSE 5% 100 ML IV SCH ×4 (00:30→23:34)
--- NOTE | 2021-04-03 07:35 | Hospitalist Progress Note ---
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 No skin/soft tissue issues appreciated on exam * speciation yet TBD -- follow bcx, repeat pending * remains on Zosyn, will check ECHO -- last ECHO 05/05/19 LV size normal with hyperdynamic systolic function. EF >70%. No regional wma. No significant LVH. Moderate L atrial dilation, mild R atrial dilation. No significant valvular abn. Mild Pulm HTN. Est RVSP 48mmHg. Afib with RVR. Compared to prior 2018, LV systolic function hyperdynamic (3) Dementia: Plan: Chronic * Frequent orientation, avoid delirium inducing agents * Continue Memantine 10mg po BID * Continue Rivastigmine At baseline per family -- also has a history of CVA and significantly debilitated from previous stroke. Suspect some vascular dementia from prior CVA * --> Remains on ASA/Eliquis for 2nd prevention * No reflux symptoms reported, but could consider PPI therapy for GI prophylaxis given on chronic ASA/Eliquis for above (4) Atrial fibrillation with RVR: Plan: * Rate controlled * Continue Apixaban 5mg po BID, diltiazem 180mg, metoprolol 25mg BID (5) BPH (benign prostatic hyperplasia): Plan: * Chronic, hx severe urinary retention * Continue Flomax * Bladder scan as needed -- has been voiding adequately with condom cath * UOP 0.5 ml/kg/hr, acceptable * Continue to monitor (6) CVA (cerebral vascular accident): Plan: * Hx of such -- see #3 * no acute deficits above baseline Plan: PT/OT consulted -- family does not want placed at all though Remains inpatient on continued IV abx/monitoring of cultures Admission and Anticipated Discharge Date Admission Date: April 01, 2021 Subjective patient evaluated this morning feeling well, no acute complaints pleasantly confused but no deficits above usual per RN taking care previous days, confirmed by family night before Blood cultures now with a positive finding and repeated. Patient aware will need to remain inpatient for IV antibiotics at this time. No pain reported, tolerating meals without issue. Awaiting his to come and visit with him this afternoon. Questions/concerns addressed. No issues per nursing, no other skin issues to backside noted when turning/cleaning up. Review of Systems Review of Systems: All systems reviewed & are unremarkable except as noted in HPI & below Physical Exam Physical Exam: The patient appeared well nourished and normally developed, no acute distress Head exam is normocephalic atraumatic Neck is without JVD, thyromegaly, or carotid bruits. Lungs CTAB, no w/c/r, on room air CV: RRR, no m/r/g, no edema, cap refill < 3 seconds GI: +BS, soft, nontender Extremities: nonedematous and both pedal pulses are present Neurologic: alert and follows some commands is hard of hearing and not very talkative, hemianopsia from prior CVA Skin is warm, dry, without appreciable lesions/wounds Psychologically alert, oriented to person, pleasantly confused at times, cooperative Results & Data Results & Data ([facility]) Vital Signs (Past 12 Hours) Vital Signs Temp Pulse Resp BP BP Pulse Ox 04/03/21 07:17 36.9 C 71 16 123/78 97 04/02/21 22:41 36.9 C 78 16 155/94 H 96 04/02/21 15:01 36.3 C L 84 18 129/84 96 Intake and Output 04/02/21 04/03/21 04/03/21 22:59 06:59 14:59 Intake Total 115 / 345 115 / 345 115 / 115 Output Total 601 / 1001 400 / 1001 Balance -486 / -656 -285 / -656 115 / 115 Intake: IV 115 / 345 115 / 345 115 / 115 Piperacillin/Tazobactam 3.375 115 / 345 115 / 345 115 / 115 gm In Dextrose 5% 100 ml @ 28. 75 mls/hr IV Q8H [facility] Rx#: [id number] Output: Urine Amount (Catheter) 600 / 1000 400 / 1000 External 600 / 1000 400 / 1000 # Bowel Movements Other: # Unmeasured Voids 1 Laboratory Results 04/03/21 04/03/21 04/01/21 Range/Units 08:34 08:34 17:10 WBC 7.44 (4.8-10.8) K/uL RBC 4.90 (4.7-6.1) M/uL Hgb 15.3 (14.0-18.0) g/dL Hct 46.1 (42-52) % MCV 94.1 (80-100) fL MCH 31.2 (25-34) pg MCHC 33.2 (32-36) g/dL RDW Std Deviation 49.2 H (36.4-46.3) fL RDW Coeff of Alex 14.3 (11.5-14.5) % Plt Count 204 (130-400) K/uL MPV 9.9 (7.4-10.4) fL Immature Gran % (Auto) 0.3 % Neut % (Auto) 60.1 % Lymph % (Auto) 29.0 % [place] % (Auto) 6.6 % Eos % (Auto) 3.2 % Baso % (Auto) 0.8 % Neut # (Auto) 4.47 (1.4-6.5) K/uL Lymph # (Auto) 2.16 (1.2-3.4) K/uL [place] # (Auto) 0.49 (0.11-0.59) K/uL Eos # (Auto) 0.24 (0-0.5) K/uL Baso # (Auto) 0.06 (0-0.2) K/uL Immature Gran # (Auto) 0.02 (0.00-0.02) K/uL Sodium 137 (136-145) mmol/L Potassium 4.0 (3.5-5.1) mmol/L Chloride 105 (98-107) mmol/L Carbon Dioxide 25 (21-32) mmol/L Anion Gap 7 (3-11) BUN 16 (6-23) mg/dl Creatinine 0.95 (0.6-1.4) mg/dl Est Cr Clr Drug Dosing 70.4 ml/min Est GFR ( Amer) 91.0 ml/min Est GFR (Non-Af Amer) 78.5 ml/min BUN/Creatinine Ratio 16.8 (10-20) Glucose 104 H (70-99(Fasting)) mg/dl Calcium 9.4 (8.5-10.1) mg/dl Bld Cult Staph aureus PCR Negative (Negative) Blood Culture MRSA PCR Negative (Negative) PG Care Time/CCT Total # of Minutes Spent Total Time Spent with Patient: Total time spent is greater than 50% in coordination of care (as documented) at patient's floor/unit and/or counseling patient: Coding Level of Care Code 53230 Subseq Hosp Care Lvl 2 Diagnoses UTI (urinary tract infection) N39.0 Dementia F03.90 Atrial fibrillation with RVR I48.91 BPH (benign prostatic hyperplasia) N40.0 Bacteremia R78.81 CVA (cerebral vascular accident) I63.9
[2021-04-03] MEDS: METOPROLOL TARTRATE 25 MG TAB PO SCH ×2 (08:24→21:02)
[2021-04-03] MEDS: dilTIAZem HCL 180 MG CAPCR PO SCH (08:24)
[2021-04-03] MEDS: RIVASTIGMINE TARTRATE 1.5 MG CAP PO SCH (08:24)
[2021-04-03] MEDS: DOCUSATE SODIUM 100 MG CAP PO SCH ×2 (08:24→21:02)
[2021-04-03] MEDS: MEMANTINE HCL 10 MG TAB PO SCH ×2 (08:24→21:01)
[2021-04-03] MEDS: POLYETHYLENE (MIRALAX) 17 GM PACK PO SCH (08:24)
[2021-04-03] MEDS: APIXABAN 5 MG TABLET PO SCH ×2 (08:24→21:02)
[2021-04-03] MEDS ORDERED: SULFAMETHOXAZOLE/TRIMETHOPRIM DS 800/160MG TAB PO SCH (09:00)
[2021-04-03 09:09] LABS: Basophils # (auto) 0.06 K/uL (0-0.2); Basophils % (auto) 0.8 %; Eosinophils # (auto) 0.24 K/uL (0-0.5); Eosinophils % (auto) 3.2 %; Hematocrit (blood only) 46.1 % (42-52); Hemoglobin 15.3 g/dL (14.0-18.0); Immature Granulocytes # (auto) 0.02 K/uL (0.00-0.02); Immature Granulocytes % (auto) 0.3 %; Lymphocytes # (auto) 2.16 K/uL (1.2-3.4); Mean Corpuscular Hemoglobin 31.2 pg (25-34); Mean Corpuscular Hgb Conc 33.2 g/dL (32-36); Mean Corpuscular Volume 94.1 fL (80-100); Mean Platelet Volume 9.9 fL (7.4-10.4); Monocytes # (auto) 0.49 K/uL (0.11-0.59); Monocytes % (auto) 6.6 %; Neutrophils # (auto) 4.47 K/uL (1.4-6.5); Neutrophils % (auto) 60.1 %; Platelet Count 204 K/uL (130-400); RDW Coefficient of Variation 14.3 % (11.5-14.5); RDW Standard Deviation 49.2 fL (36.4-46.3); White Blood Count 7.44 K/uL (4.8-10.8)
[2021-04-03 09:26] LABS: BUN Creatinine Ratio 16.8 (10-20); Calcium 9.4 mg/dl (8.5-10.1); Creatinine Clr Calc Pharmacy 70.4 ml/min; Est GFR (Non-African American) 78.5 ml/min
--- NOTE | 2021-04-03 17:37 | XCELERA ---
[id number]
[2021-04-03] MEDS: CHOLECALCIFEROL 1,000 UNITS 25 MCG TAB PO SCH (21:01)
[2021-04-03] MEDS: TAMSULOSIN HCL 0.4 MG CAP PO SCH (21:02)
[2021-04-04] MEDS: dilTIAZem HCL 180 MG CAPCR PO SCH (08:05)
[2021-04-04] MEDS: METOPROLOL TARTRATE 25 MG TAB PO SCH ×2 (08:05→20:25)
[2021-04-04] MEDS: DOCUSATE SODIUM 100 MG CAP PO SCH ×2 (08:06→20:26)
[2021-04-04] MEDS: POLYETHYLENE (MIRALAX) 17 GM PACK PO SCH (08:06)
[2021-04-04] MEDS: RIVASTIGMINE TARTRATE 1.5 MG CAP PO SCH (08:06)
[2021-04-04] MEDS: APIXABAN 5 MG TABLET PO SCH ×2 (08:06→20:25)
[2021-04-04] MEDS: MEMANTINE HCL 10 MG TAB PO SCH ×2 (08:06→20:24)
[2021-04-04] MEDS: PIPERACILLIN/TAZOBACTAM 3.375 GM in DEXTROSE 5% 100 ML IV SCH ×2 (08:10→15:39)
--- NOTE | 2021-04-04 19:32 | Hospitalist Progress Note ---
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 No skin/soft tissue issues appreciated on exam * speciation yet TBD -- follow bcx, repeat pending * remains on Zosyn (3) Dementia: Plan: Chronic * Frequent orientation, avoid delirium inducing agents * Continue Memantine 10mg po BID * Continue Rivastigmine At baseline per family -- also has a history of CVA and significantly debilitated from previous stroke. Suspect some vascular dementia from prior CVA * --> Remains on ASA/Eliquis for 2nd prevention * No reflux symptoms reported, but could consider PPI therapy for GI prophylaxis given on chronic ASA/Eliquis for above (4) Atrial fibrillation with RVR: Plan: * Rate controlled * Continue Apixaban 5mg po BID, diltiazem 180mg, metoprolol 25mg BID (5) BPH (benign prostatic hyperplasia): Plan: * Chronic, hx severe urinary retention * Continue Flomax * Bladder scan as needed -- has been voiding adequately with condom cath * UOP 0.5 ml/kg/hr, acceptable * Continue to monitor (6) CVA (cerebral vascular accident): Plan: * Hx of such -- see #3 * no acute deficits above baseline Plan: PT/OT consulted -- family does not want placed at all though Remains inpatient on continued IV abx/monitoring of cultures; updated over the phone Admission and Anticipated Discharge Date Admission Date: April 01, 2021 Subjective No acute events overnight. Reports no complaints. Tolerating a diet. States he feels better compared to yesterday. Review of Systems Review of Systems: All systems reviewed & are unremarkable except as noted in Subjective Physical Exam Physical Exam: PHYSICAL EXAM General Appearance: WDWN in NAD who is A&O x 3 HEENT: Head is normocephalic/atraumatic; EOMI; PERRLA; Hearing grossly intact; Mucous membranes moist; Pharynx negative for exudate/lesions Neck: Supple; Trachea midline; Neg JVD; Neg lymphadenopathy Heart: RRR with no M/G/R Lungs: CTA in all lung dale bilaterally; Respirations unlabored; Neg accessory muscle use Abdomen: Soft, non-tender, non-distended; Positive BS x 4 quadrants; Neg organomegaly Extremities: Capillary refill < 2 seconds; Neg cyanosis or edema Neurological: Speech clear; Gross motor/sensory function intact; Neg focal neurologic deficits Psychiatric: Appropriate mood/affect Skin: Normal Color; Warm/Dry; Neg rashes, ecchymosis, lacerations/ulceration Results & Data Results & Data ([facility]) Vital Signs (Past 12 Hours) Vital Signs Temp Pulse Resp BP Pulse Ox 04/04/21 15:04 36.7 C 92 H 18 131/81 97 04/04/21 07:33 36.8 C 78 16 111/77 95 PG Care Time/CCT Total # of Minutes Spent Total Time Spent with Patient: Total time spent is greater than 50% in coordination of care (as documented) at patient's floor/unit and/or counseling patient: Coding Level of Care Code 68808 Subseq Hosp Care Lvl 3 Diagnoses UTI (urinary tract infection) N39.0 Bacteremia R78.81 Dementia F03.90 Atrial fibrillation with RVR I48.91 BPH (benign prostatic hyperplasia) N40.0 CVA (cerebral vascular accident) I63.9
[2021-04-04] MEDS: CHOLECALCIFEROL 1,000 UNITS 25 MCG TAB PO SCH (20:25)
[2021-04-04] MEDS: TAMSULOSIN HCL 0.4 MG CAP PO SCH (20:25)
[2021-04-05] MEDS: PIPERACILLIN/TAZOBACTAM 3.375 GM in DEXTROSE 5% 100 ML IV SCH ×4 (01:00→23:54)
[2021-04-05] MEDS: METOPROLOL TARTRATE 25 MG TAB PO SCH ×2 (08:26→20:42)
[2021-04-05] MEDS: POLYETHYLENE (MIRALAX) 17 GM PACK PO SCH (08:26)
[2021-04-05] MEDS: dilTIAZem HCL 180 MG CAPCR PO SCH (08:26)
[2021-04-05] MEDS: ADVANCED PROBIOTIC 1250 MG CAPSULE PO SCH (08:26)
[2021-04-05] MEDS: DOCUSATE SODIUM 100 MG CAP PO SCH ×2 (08:26→20:43)
[2021-04-05] MEDS: RIVASTIGMINE TARTRATE 1.5 MG CAP PO SCH (08:26)
[2021-04-05] MEDS: MEMANTINE HCL 10 MG TAB PO SCH ×2 (08:26→20:44)
[2021-04-05] MEDS: APIXABAN 5 MG TABLET PO SCH ×2 (08:26→20:43)
--- NOTE | 2021-04-05 12:08 | Hospitalist Progress Note ---
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 * Afebrile, HD stable, nontoxic in appearance, WBC WNL * Placed on Zosyn on admission and will need to complete IV treatment * Urine cx with pseudomonas/staph aureus -- Given pseudomonal infection may need to consider a 14 day antibiotic course regardless which would also give full bacteremia coverage if thought to be a true infection and not contaminant * Blood cultures 1 aerobic blood culture staph species, could be contaminant but given recurrent infections will repeat cultures/obtain ECHO (no vegetation but was a TTE) -- Await further BCx identification - if staph aureus may need ID consultation * Continue to monitor (2) Bacteremia: Plan: * possible, given recurrent infections but prior cxs from after Crews placement. No skin/soft tissue issues appreciated on exam * speciation yet TBD -- follow bcx, repeat NGTD * remains on Zosyn (3) Dementia: Plan: Chronic * Frequent orientation, avoid delirium inducing agents * Continue Memantine 10mg po BID * Continue Rivastigmine At baseline per family -- also has a history of CVA and significantly debilitated from previous stroke. Suspect some vascular dementia from prior CVA * --> Remains on ASA/Eliquis for 2nd prevention * No reflux symptoms reported, but could consider PPI therapy for GI prophylaxis given on chronic ASA/Eliquis for above (4) Atrial fibrillation with RVR: Plan: * Rate controlled * Continue Apixaban 5mg po BID, diltiazem 180mg, metoprolol 25mg BID (5) BPH (benign prostatic hyperplasia): Plan: * Chronic, hx severe urinary retention * Continue Flomax * Bladder scan as needed -- has been voiding adequately with condom cath * UOP 0.5 ml/kg/hr, acceptable * Continue to monitor (6) CVA (cerebral vascular accident): Plan: * Hx of such -- see #3 * no acute deficits above baseline Plan: PT/OT consulted -- family does not want placed at all though Remains inpatient on continued IV abx/monitoring of cultures; possibly looking at 14 days total. Discussed with who is a bit uncertain about being able to do home IV antibiotics which is understandable. Await further BCx identification and continue IV Abx at this time. Admission and Anticipated Discharge Date Admission Date: April 01, 2021 Subjective No acute events overnight. Reports feeling well this AM. Tolerating a diet. Denies any abdominal pain. Review of Systems Review of Systems: All systems reviewed & are unremarkable except as noted in Subjective Physical Exam Physical Exam: PHYSICAL EXAM General Appearance: WDWN in NAD HEENT: Head is normocephalic/atraumatic; Hearing grossly intact; Mucous membranes moist Neck: Supple; Trachea midline; Neg JVD Heart: irregulary irregular with no M/G/R Lungs: CTA in all lung dale bilaterally; Respirations unlabored; Neg accessory muscle use Abdomen: Soft, non-tender, non-distended; Positive BS x 4 quadrants Extremities: Neg cyanosis or edema Neurological: Speech clear Psychiatric: Appropriate mood/affect Skin: Normal Color; Warm/Dry Results & Data Results & Data ([facility]) Vital Signs (Past 12 Hours) Vital Signs Temp Pulse Resp BP Pulse Ox 04/05/21 07:04 36.4 C L 90 16 131/80 96 04/05/21 04:53 37.5 C PG Care Time/CCT Total # of Minutes Spent Total Time Spent with Patient: Total time spent is greater than 50% in coordination of care (as documented) at patient's floor/unit and/or counseling patient: Coding Level of Care Code 02063 Subseq Hosp Care Lvl 2 Diagnoses UTI (urinary tract infection) N39.0 Bacteremia R78.81 Dementia F03.90 Atrial fibrillation with RVR I48.91 BPH (benign prostatic hyperplasia) N40.0 CVA (cerebral vascular accident) I63.9
[2021-04-05] MEDS: CHOLECALCIFEROL 1,000 UNITS 25 MCG TAB PO SCH (20:43)
[2021-04-05] MEDS: TAMSULOSIN HCL 0.4 MG CAP PO SCH (20:43)
[2021-04-05] MEDS: ACETAMINOPHEN 325 MG TAB PO PRN (22:42)
--- NOTE | 2021-04-05 23:01 | CT Scan Report ---
CT head/brain wo con CLINICAL HISTORY: Change in Mentation COMPARISON STUDY: 12/28/2020 CT DOSE: TECHNIQUE: Standard CT of the Brain was performed without IV contrast. A dose lowering technique was utilized adhering to the principles of ALARA. FINDINGS: Extraaxial space: There is no evidence for subdural hematoma. There are no extra-axial fluid collecti ons. Ventricles and cisterns: The ventricles are again moderately to markedly enlarged bilaterally. There is no evidence for midline shift or mass effect. Parenchyma: There is no subarachnoid or intraparenchymal hemorrhage. There is no evidence for an acu te infarct or cerebral edema. There is mild cerebral cortical atrophy and decreased attenuation in th e periventricular white matter representing remote small vessel disease. There are no gross mass lesi ons. Osseous structures: There is no evidence for an acute fracture. The visualized paranasal sinuses are clear. The mastoid air cells are clear bilaterally. Soft tissues: There is no evidence for focal soft tissue swelling. IMPRESSION: 1. No acute intracranial pathology. 2. Moderate to marked ventricular dilatation is again seen bilaterally. 3. Cerebral cortical atrophy and marked remote small vessel disease, right greater than left are agai n seen. ACT 112: Negative or not required by law. Electronically signed by: Benoit López M.D. 04/05/2021 11:00 PM
--- NOTE | 2021-04-06 08:50 | CT Scan Report ---
CT soft tissue neck wo con HISTORY: 75 years-old Male Decreased mobility/stiffness acute neck pain COMPARISON: Head CT of same day, CTA neck 12/28/2020, chest CT 01/31/2019 TECHNIQUE: Multiple axial CT images of the soft tissues of the neck were obtained without the use of IV contrast. A dose lowering technique was used consistent with the principals of SAM. FINDINGS: Partially imaged chronic dilation of the ventricles with white matter hypodensities. Streak artifact from dental amalgam hardware. Unremarkable orbits. The nasopharynx, oral pharynx and hypopharynx appe ar patent. There are a few benign-appearing calcifications noted within the epiglottis. The glottis a nd subglottic airway appears normal. Subcentimeter left-sided thyroid nodule. The thyroid appears mil dly atrophic. There are a few calcified mediastinal and hilar lymph nodes suggestive of prior granulo matous disease. No pathologically enlarged lymph nodes are identified. Mild calcified plaque of the c arotid bulbs. Atrophic submandibular glands. Scattered pulmonary calcified granulomata. No pneumothorax. There is irregular 1.2 x 0.8 x 1.5 cm kristin undglass nodule involving the apical posterior segment of the left upper lobe, previously measuring 1 .0 x 0.5 x 1.2 cm. No acute fracture. Degenerative changes of the shoulders and spine. No suspicious bone lesion identified. 8 mm vertebral body hemangioma of the C5 vertebral body. IMPRESSION: 1. No acute abnormality identified involving the soft tissues of the neck. 2. No adenopathy. 3. Suspicious 1.2 x 0.8 x 1.5 cm groundglass nodule of the apical posterior segment left upper lobe h as increased in size from the comparison 01/31/2019 study. An adenomatous lesion is the diagnosis of exclusion. Pulmonary consultation follow-up recommended. 4. Prior granulomatous disease. ACT 112: Negative or not required by law. The above report was generated using voice recognition software. It may contain grammatical, syntax o r spelling errors. Electronically signed by: Malick Vital M.D. 04/06/2021 8:49 AM
[2021-04-06 09:03] LABS: Hematocrit (blood only) 45.1 % (42-52); Hemoglobin 14.9 g/dL (14.0-18.0); Mean Corpuscular Hemoglobin 31.2 pg (25-34); Mean Corpuscular Volume 94.5 fL (80-100); Platelet Count 192 K/uL (130-400); RDW Coefficient of Variation 14.6 % (11.5-14.5); RDW Standard Deviation 50.6 fL (36.4-46.3); Red Blood Count 4.77 M/uL (4.7-6.1); White Blood Count 10.56 K/uL (4.8-10.8)
[2021-04-06] MEDS: PIPERACILLIN/TAZOBACTAM 3.375 GM in DEXTROSE 5% 100 ML IV SCH ×2 (09:28→17:28)
[2021-04-06 09:29] LABS: BUN Creatinine Ratio 18.5 (10-20); Calcium 9.4 mg/dl (8.5-10.1); Creatinine Clr Calc Pharmacy 72.7 ml/min; Est GFR (African American) 94.6 ml/min; Est GFR (Non-African American) 81.6 ml/min; Potassium 4.1 mmol/L (3.5-5.1)
[2021-04-06] MEDS: MEMANTINE HCL 10 MG TAB PO SCH ×2 (09:29→21:50)
[2021-04-06] MEDS: METOPROLOL TARTRATE 25 MG TAB PO SCH ×2 (09:29→21:49)
[2021-04-06] MEDS: RIVASTIGMINE TARTRATE 1.5 MG CAP PO SCH (09:29)
[2021-04-06] MEDS: ADVANCED PROBIOTIC 1250 MG CAPSULE PO SCH (09:29)
[2021-04-06] MEDS: dilTIAZem HCL 180 MG CAPCR PO SCH (09:30)
[2021-04-06] MEDS: DOCUSATE SODIUM 100 MG CAP PO SCH ×3 (09:30→21:59)
[2021-04-06] MEDS: APIXABAN 5 MG TABLET PO SCH ×2 (09:30→21:49)
[2021-04-06] MEDS: POLYETHYLENE (MIRALAX) 17 GM PACK PO SCH (09:35)
[2021-04-06] MEDS ORDERED: METHOCARBAMOL 500 MG TABLET PO ONE (11:30)
[2021-04-06] MEDS: NYSTATIN SUSP 500,000 U/5 ML UDC PO SCH ×3 (12:13→21:50)
--- NOTE | 2021-04-06 13:38 | XRay Report ---
XR chest 1V portable CLINICAL HISTORY: Aspiration event. Evaluate for pneumonia COMPARISON STUDY: 04/01/2021 TECHNIQUE: 1 view of the chest FINDINGS: Single frontal view of the chest demonstrates the heart size to be mildly enlarged. There is a decrea sed inspiratory effort with elevation of the hemidiaphragms and crowding of the bronchovascular omer ngs at the lung bases and centrally. The lungs are clear of alveolar opacities. There is no evidence for pleural effusion. There is no evidence for vascular congestion. There is no acute osseous patholo gy. IMPRESSION: 1. There is a decreased inspiratory effort with otherwise no acute chest disease. ACT 112: Negative or not required by law. Electronically signed by: Benoit López M.D. 04/06/2021 1:37 PM
--- NOTE | 2021-04-06 17:40 | Hospitalist Progress Note ---
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 Was having some coughing with drinking but current CXR without infiltrate -- Will have PROMOTIONS FIRM ACCOUNTS MANAGER assess however after speaking with it seems this is a chronic issue at home and states when he is more tired he has more issues with swallowing * Placed on Zosyn on admission and will need to complete IV treatment * Urine cx with pseudomonas/staph aureus -- Given pseudomonal infection may need to consider a 14 day antibiotic course regardless which would also give full bacteremia coverage if thought to be a true infection and not contaminant * Blood cultures 1 aerobic blood culture staph species, could be contaminant but given recurrent infections will repeat cultures/obtain ECHO (no vegetation but was a TTE) -- BCx with coag negative staph not lugdunesis so given 1 of 4 would suspect contaminant however given likely need for 14 days Abx would ultimately treat and possible bacteremia * Continue to monitor (2) Bacteremia: Plan: * possible, given recurrent infections but still favor contaminant. No skin/soft tissue issues appreciated on exam * remains on Zosyn (3) Dementia: Plan: Chronic * Frequent orientation, avoid delirium inducing agents * Continue Memantine 10mg po BID * Continue Rivastigmine At baseline per family -- also has a history of CVA and significantly debilitated from previous stroke. Suspect some vascular dementia from prior CVA * --> Remains on ASA/Eliquis for 2nd prevention * No reflux symptoms reported, but could consider PPI therapy for GI prophylaxis given on chronic ASA/Eliquis for above * (4) Atrial fibrillation with RVR: Plan: * Rate controlled; *Chronic Atrial Fibrillatin * Continue Apixaban 5mg po BID, diltiazem 180mg, metoprolol 25mg BID (5) BPH (benign prostatic hyperplasia): Plan: * Chronic, hx severe urinary retention * Continue Flomax * Bladder scan as needed -- has been voiding adequately with condom cath * UOP 0.5 ml/kg/hr, acceptable * Continue to monitor (6) CVA (cerebral vascular accident): Plan: * Hx of such -- see #3 * no acute deficits above baseline Neck Stiffness: - On 04/05 patient noted to not really move neck. Would not complain of pain to me but reported he had pain. At baseline he does not always follow commands making further assessment difficult. He did have some prominence of the R st ernocleidomastoid and slightly elevated shoulder on the R side. Able to passively move his head to the left and lifting forward; no signs of meningeal irritation - Today able to move head and neck a bit better and actively moving this and following commands better. Has no complaint -- Review of outpatient records show paroxysmal twitching movements that are of unknown etiology. Suspect this could be a torticollis, maybe spasmodic in origin given the chronic twitches. Gave Methocarbamol to help muscles as this will have less SPRUE CUTTING PRESS OPERATOR effects -- seems to have helped and will reassess in AM - He does have chronic L sided deficits from his previous CVAs and family does report he can lean to the right a lot so possibly contributing to some muscle component? Plan: PT/OT consulted -- family does not want placed at all though Remains inpatient on continued IV abx/monitoring of cultures; possibly looking at 14 days total. Discussed with who is a bit uncertain about being able to do home IV antibiotics which is understandable. Admission and Anticipated Discharge Date Admission Date: April 01, 2021 Subjective No acute events overnight. Patient went for head CT with no acute findings. He is able to move his head/neck a bit better today and does not complain of pain however not sure if he is a great historian for this. He is more interactive today but looks fatigued. Given the timing of his imaging he did have disrupted sleep overnight. He did have some coughing after drinking water and taking a piill today. Talked with his who states he does have occasional issues at home with this especially when tired. She states sometimes she has to horse riding coach or instructor him some to eat and drink properly and notices this has become a more progressive thing. Review of Systems Review of Systems: All systems reviewed & are unremarkable except as noted in Subjective Physical Exam Physical Exam: PHYSICAL EXAM General Appearance: WDWN in NAD HEENT: Head is normocephalic/atraumatic; Hearing grossly intact; Mucous membranes moist Neck: Supple; Trachea midline; Neg JVD Heart: irregulary irregular with no M/G/R Lungs: CTA in all lung dale bilaterally; Respirations unlabored; Neg accessory muscle use Abdomen: Soft, non-tender, non-distended; Positive BS x 4 quadrants Extremities: Neg cyanosis or edema Neurological: Speech clear Psychiatric: Appropriate mood/affect Skin: Normal Color; Warm/Dry Results & Data Results & Data ([facility]) Vital Signs (Past 12 Hours) Vital Signs Temp Pulse Resp BP Pulse Ox 04/06/21 16:56 37.9 C H 100 H 16 150/85 H 95 04/06/21 07:49 36.6 C 91 H 16 114/82 97 PG Care Time/CCT Total # of Minutes Spent Total Time Spent with Patient: Total time spent is greater than 50% in coordination of care (as documented) at patient's floor/unit and/or counseling patient: Coding Level of Care Code 10021 Subseq Hosp Care Lvl 3 Diagnoses UTI (urinary tract infection) N39.0 Bacteremia R78.81 Dementia F03.90 Atrial fibrillation with RVR I48.91 BPH (benign prostatic hyperplasia) N40.0 CVA (cerebral vascular accident) I63.9
[2021-04-06] MEDS: TAMSULOSIN HCL 0.4 MG CAP PO SCH (21:49)
[2021-04-06] MEDS: CHOLECALCIFEROL 1,000 UNITS 25 MCG TAB PO SCH (21:49)
[2021-04-07] MEDS: PIPERACILLIN/TAZOBACTAM 3.375 GM in DEXTROSE 5% 100 ML IV SCH ×4 (00:54→23:39)
[2021-04-07] MEDS: METOPROLOL TARTRATE 25 MG TAB PO SCH ×2 (10:04→21:14)
[2021-04-07] MEDS: ADVANCED PROBIOTIC 1250 MG CAPSULE PO SCH (10:04)
[2021-04-07] MEDS: NYSTATIN SUSP 500,000 U/5 ML UDC PO SCH ×4 (10:04→21:13)
[2021-04-07] MEDS: MEMANTINE HCL 10 MG TAB PO SCH ×2 (10:04→21:15)
[2021-04-07] MEDS: APIXABAN 5 MG TABLET PO SCH ×2 (10:04→21:14)
[2021-04-07] MEDS: dilTIAZem HCL 180 MG CAPCR PO SCH (10:05)
[2021-04-07] MEDS: POLYETHYLENE (MIRALAX) 17 GM PACK PO SCH (10:05)
[2021-04-07] MEDS: RIVASTIGMINE TARTRATE 1.5 MG CAP PO SCH (10:05)
[2021-04-07] MEDS: ACETAMINOPHEN 325 MG TAB PO PRN (10:13)
[2021-04-07] MEDS: DOCUSATE SODIUM 100 MG CAP PO SCH ×2 (10:18→21:13)
--- NOTE | 2021-04-07 18:55 | Hospitalist Progress Note ---
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 Was having some coughing with drinking but current CXR without infiltrate - swallowing much improved today -- No acute issues with swallowing - TUTORING MANAGER did see patient and discussed - no signs of aspiration * Placed on Zosyn on admission and will need to complete IV treatment * Urine cx with pseudomonas/staph aureus -- Given pseudomonal infection may need to consider a 14 day antibiotic course regardless which would also give full bacteremia coverage if thought to be a true infection and not contaminant * Blood cultures 1 aerobic blood culture staph species, could be contaminant but given recurrent infections will repeat cultures/obtain ECHO (no vegetation but was a TTE) -- BCx with coag negative staph not lugdunesis so given 1 of 4 would suspect contaminant however given likely need for 14 days Abx would ultimately treat and possible bacteremia * Continue to monitor (2) Bacteremia: Plan: * possible, given recurrent infections but still favor contaminant. No skin/soft tissue issues appreciated on exam * remains on Zosyn (3) Dementia: Plan: Chronic * Frequent orientation, avoid delirium inducing agents * Continue Memantine 10mg po BID * Continue Rivastigmine At baseline per family -- also has a history of CVA and significantly debilitated from previous stroke. Suspect some vascular dementia from prior CVA * --> Remains on ASA/Eliquis for 2nd prevention * No reflux symptoms reported, but could consider PPI therapy for GI prophylaxis given on chronic ASA/Eliquis for above (4) Atrial fibrillation with RVR: Plan: * Rate controlled; *Chronic Atrial Fibrillatin * Continue Apixaban 5mg po BID, diltiazem 180mg, metoprolol 25mg BID (5) BPH (benign prostatic hyperplasia): Plan: * Chronic, hx severe urinary retention * Continue Flomax * Bladder scan as needed -- has been voiding adequately with condom cath * UOP 0.5 ml/kg/hr, acceptable * Continue to monitor (6) CVA (cerebral vascular accident): Plan: * Hx of such -- see #3 * no acute deficits above baseline Neck Stiffness: - On 04/05 patient noted to not really move neck. Would not complain of pain to me but reported he had pain. At baseline he does not always follow commands making further assessment difficult. He did have some prominence of the R sternocleidomastoid and slightly elevated shoulder on the R side. Able to passively move his head to the left and lifting forward; no signs of meningeal irritation - Today able to move head and neck a bit better and actively moving this and following commands better. Has no complaint -- Review of outpatient records show paroxysmal twitching movements that are of unknown etiology. Suspect this could be a torticollis, maybe spasmodic in o rigin given the chronic twitches. Gave Methocarbamol to help muscles as this will have less SOLE ASSESSOR effects -- seems to have helped and will reassess in AM - He does have chronic L sided deficits from his previous CVAs and family does report he can lean to the right a lot so possibly contributing to some muscle component? R Hand/Elbow Pain: - Again he cannot give many details to assess. Seems to be tender on the top of the hand were a blood draw may have occurred and tenderness to elbow. Neither area is red or warm to touch - Check uric acid in AM; will check XR wrist/elbow; will defer U/S for DVT as he is on Eliquis - Can use ice Plan: PT/OT consulted -- family does not want placed at all though Remains inpatient on continued IV abx/monitoring of cultures; possibly looking at 14 days total. Discussed with who is a bit uncertain about being able to do home IV antibiotics which is understandable. Admission and Anticipated Discharge Date Admission Date: April 01, 2021 Subjective No acute events overnight. Is more awake today. Verbalizes no complaints however when assessing his arm he reporting pain when touching the top part of his hand. It does appear he had some blood work in this area so maybe tender? It is hard to do a full exam due to pain and arm is rather weight. Also tenderness with palpation of the elbow. Will obtain XRs of both joints. He is on Eliquis and no swelling to suspect DVT. However he really does not verbalize any complaints. He did do better with his swallowing today and was able to eat meals without difficulty. Review of Systems Review of Systems: All systems reviewed & are unremarkable except as noted in Subjective Physical Exam Physical Exam: PHYSICAL EXAM General Appearance: WDWN in NAD HEENT: Head is normocephalic/atraumatic; Hearing grossly intact; Mucous membranes moist Neck: Supple; Trachea midline; Neg JVD Heart: irregulary irregular with no M/G/R Lungs: CTA in all lung dale bilaterally; Respirations unlabored; Neg accessory muscle use Abdomen: Soft, non-tender, non-distended; Positive BS x 4 quadrants Extremities: Neg cyanosis or edema; tenderness with palp of top of hand around an puncture (lab draw) site; tenderness to palp of elbow neither of which are swollen or warm/red Neurological: Speech clear Psychiatric: Appropriate mood/affect Skin: Normal Color; Warm/Dry Results & Data Results & Data ([facility]) Vital Signs (Past 12 Hours) Vital Signs Temp Pulse Resp BP Pulse Ox 04/07/21 14:41 37.0 C 101 H 16 117/76 97 04/07/21 07:22 36.8 C 63 16 128/83 94 PG Care Time/CCT Total # of Minutes Spent Total Time Spent with Patient: Total time spent is greater than 50% in coordination of care (as documented) at patient's floor/unit and/or counseling patient: Coding Level of Care Code 75758 Subseq Hosp Care Lvl 3 Diagnoses UTI (urinary tract infection) N39.0 Bacteremia R78.81 Dementia F03.90 Atrial fibrillation with RVR I48.91 BPH (benign prostatic hyperplasia) N40.0 CVA (cerebral vascular accident) I63.9
[2021-04-07] MEDS ORDERED: ACETAMINOPHEN HOME PACK 500 MG TABLET PO SCH (21:00)
[2021-04-07] MEDS: CHOLECALCIFEROL 1,000 UNITS 25 MCG TAB PO SCH (21:14)
[2021-04-07] MEDS: TAMSULOSIN HCL 0.4 MG CAP PO SCH (21:14)
[2021-04-08 07:54] LABS: Hematocrit (blood only) 42.4 % (42-52); Hemoglobin 13.9 g/dL (14.0-18.0); Mean Corpuscular Hgb Conc 32.8 g/dL (32-36); Mean Corpuscular Volume 94.4 fL (80-100); Mean Platelet Volume 10.3 fL (7.4-10.4); Platelet Count 242 K/uL (130-400); RDW Coefficient of Variation 14.7 % (11.5-14.5); RDW Standard Deviation 50.6 fL (36.4-46.3); Red Blood Count 4.49 M/uL (4.7-6.1); White Blood Count 10.06 K/uL (4.8-10.8)
[2021-04-08 08:12] LABS: BUN Creatinine Ratio 22.7 (10-20); Calcium 9.2 mg/dl (8.5-10.1); Est GFR (African American) 98.1 ml/min; Est GFR (Non-African American) 84.6 ml/min; Potassium 3.8 mmol/L (3.5-5.1); Uric Acid 3.4 mg/dl (2.6-7.2)
[2021-04-08] MEDS: APIXABAN 5 MG TABLET PO SCH ×2 (09:06→22:39)
[2021-04-08] MEDS: dilTIAZem HCL 180 MG CAPCR PO SCH (09:06)
[2021-04-08] MEDS: DOCUSATE SODIUM 100 MG CAP PO SCH ×2 (09:07→22:39)
[2021-04-08] MEDS: NYSTATIN SUSP 500,000 U/5 ML UDC PO SCH ×4 (09:07→22:40)
[2021-04-08] MEDS: ADVANCED PROBIOTIC 1250 MG CAPSULE PO SCH (09:07)
[2021-04-08] MEDS: RIVASTIGMINE TARTRATE 1.5 MG CAP PO SCH (09:07)
[2021-04-08] MEDS: METOPROLOL TARTRATE 25 MG TAB PO SCH ×2 (09:08→22:39)
[2021-04-08] MEDS: MEMANTINE HCL 10 MG TAB PO SCH ×2 (09:08→22:39)
[2021-04-08] MEDS: PIPERACILLIN/TAZOBACTAM 3.375 GM in DEXTROSE 5% 100 ML IV SCH ×2 (09:09→17:09)
[2021-04-08] MEDS: POLYETHYLENE (MIRALAX) 17 GM PACK PO SCH (09:09)
[2021-04-08] MEDS: NAPHAZOLIN/PHENIRAMIN OPH SOLN 75 DROPS/5 ML BTL OP SCH ×3 (11:07→22:40)
--- NOTE | 2021-04-08 11:10 | XRay Report ---
XR elbow RT 2V CLINICAL HISTORY: Elbow pain. COMPARISON STUDY: No previous studies for comparison. TECHNIQUE: 3 right elbow views FINDINGS: This is a limited examination as the patient could not fully extend his arm. Bones: There is no evidence for an acute fracture or dislocation. There is no lytic or blastic lesion . Joints: There is evidence for mild narrowing of the elbow joint spaces. There is no evidence for an i ntra-articular effusion or elevation of the fat pads. The bones are in anatomic alignment. Soft tissues: There is no focal soft tissue abnormality. There is no radiopaque foreign body. IMPRESSION: 1. No acute osseous pathology. This study is limited as patient could not completely extend his arm f or proper imaging. ACT 112: Negative or not required by law. Electronically signed by: Benoit López M.D. 04/08/2021 11:09 AM
--- NOTE | 2021-04-08 11:59 | XRay Report ---
XR wrist RT 2V CLINICAL HISTORY: Wrist Pain TECHNIQUE: 2 views of the right wrist were obtained. Comparison: None available at the time of this dictation. FINDINGS: There is no evidence of an acute fracture. The alignment is anatomic. Mild degenerative narrowing is seen of the radiocarpal articulation. Vascular calcifications are seen. IMPRESSION: No evidence of acute osseous injury. ACT 112: Negative or not required by law. Electronically signed by: Kye Healy M.D. 04/08/2021 11:57 AM
[2021-04-08] MEDS: DICLOFENAC SOD 1% GEL 100 GM TUBE EXT SCH ×4 (13:52→22:39)
--- NOTE | 2021-04-08 20:05 | Hospitalist Progress Note ---
Date of Service April 08, 2021 Assessment & Plan (1) UTI (urinary tract infection): Plan: - Sent to hospital for pre-hospital UA/Cs with pseudomonas resistant to FLQ, also with staph aureus * Recurrent urine cx with staph species in past, had been frequently treated with Bactrim NEGATIVE STRIPPER per review of notes * Afebrile (a couple low grade at 100 and will monitor - nothing for > 48 hrs), HD stable, nontoxic in appearance, WBC WNL -- Monitor for addition source? Was having some coughing with drinking but current CXR without infiltrate - swallowing much improved today -- No acute issues with swallowing - LIFE SKILLS INSTRUCTOR did see patient and discussed - no signs of aspiration * Placed on Zosyn on admission and will need to complete IV treatment * Urine cx with pseudomonas/staph aureus -- Given pseudomonal infection may need to consider a 14 day antibiotic course regardless which would also give full bacteremia coverage if thought to be a true infection and not contaminant * Blood cultures 1 aerobic blood culture staph species, could be contaminant but given recurrent infections will repeat cultures/obtain ECHO (no vegetation but was a TTE) -- BCx with coag negative staph not lugdunesis so given 1 of 4 would suspect contaminant however given likely need for 14 days Abx would ultimately treat and possible bacteremia * Continue to monitor (2) Bacteremia: Plan: * possible, given recurrent infections but still favor contaminant. No skin/soft tissue issues appreciated on exam * remains on Zosyn (3) Dementia: Plan: Chronic * Frequent orientation, avoid delirium inducing agents * Continue Memantine 10mg po BID * Continue Rivastigmine At baseline per family -- also has a history of CVA and significantly d ebilitated from previous stroke. Suspect some vascular dementia from prior CVA * --> Remains on ASA/Eliquis for 2nd prevention * No reflux symptoms reported, but could consider PPI therapy for GI prophylaxis given on chronic ASA/Eliquis for above (4) Atrial fibrillation with RVR: Plan: * Rate controlled; *Chronic Atrial Fibrillatin * Continue Apixaban 5mg po BID, diltiazem 180mg, metoprolol 25mg BID (5) BPH (benign prostatic hyperplasia): Plan: * Chronic, hx severe urinary retention * Continue Flomax * Bladder scan as needed -- has been voiding adequately with condom cath * UOP 0.5 ml/kg/hr, acceptable * Continue to monitor (6) CVA (cerebral vascular accident): Plan: * Hx of such -- see #3 * no acute deficits above baseline Neck Stiffness: RESOLVED - On 04/05 patient noted to not really move neck. Would not complain of pain to me but reported he had pain. At baseline he does not always follow commands making further assessment difficult. He did have some prominence of the R sternocleidomastoid and slightly elevated shoulder on the R side. Able to passively move his head to the left and lifting forward; no signs of meningeal irritation -- Review of outpatient records show paroxysmal twitching movements that are of unknown etiology. Suspect this could have been a torticollis, maybe spasmodic in origin given the chronic twitches. Gave Methocarbamol to help muscles as this will have less TRAVEL FREIGHT AND PASSENGER AGENT effects -- seems to have helped - He does have chronic L sided deficits from his previous CVAs and family does report he can lean to the right a lot so possibly contributing to some muscle component? R Hand/Elbow Pain: - Again he cannot give many details to assess. Seems to be tender on the top of the hand were a blood draw may have occurred and tenderness to elbow. Neither area is red or warm to touch - Uric acid WNL; XR wrist/elbow unremarkable; will defer U/S for DVT as he is on Eliquis - Can use ice; Voltaren; Tylenol - Review of previous records - UOC does not OA of R elbow and H/O R radial head fx in 2019 (possibly arthritic flair causing pain?) Plan: PT/OT consulted -- family does not want placed at all though Remains inpatient on continued IV abx/monitoring of cultures; possibly looking at 14 days total. Discussed with who is a bit uncertain about being able to do home IV antibiotics which is understandable. However exploring arm issues Admission and Anticipated Discharge Date Admission Date: April 01, 2021 Subjective No acute events overnight. Still complaining of R wrist and elbow pain with minimal movement. XR unremarkable. He is unable to give good details to assist in understanding the discomfort. reports he did have a shoulder injury requiring injections by [facility] but is not sure which arm it was. Also reporting some irritation to his R eye but eye drops seem to be helping Review of Systems Review of Systems: All systems reviewed & are unremarkable except as noted in Subjective Physical Exam Physical Exam: PHYSICAL EXAM General Appearance: WDWN in NAD HEENT: Head is normocephalic/atraumatic; Hearing grossly intact; Mucous membranes moist Neck: Supple; Trachea midline; Neg JVD Heart: irregulary irregular with no M/G/R Lungs: CTA in all lung dale bilaterally; Respirations unlabored; Neg accessory muscle use Abdomen: Soft, non-tender, non-distended; Positive BS x 4 quadrants Extremities: Neg cyanosis or edema; tenderness with palp of top of hand around an puncture (lab draw) site; tenderness to palp of elbow neither of which are swollen or warm/red Neurological: Speech clear Psychiatric: Appropriate mood/affect Skin: Normal Color; Warm/Dry Results & Data Results & Data ([facility]) Vital Signs (Past 12 Hours) Vital Signs Temp Pulse Resp BP Pulse Ox 04/08/21 15:26 36.7 C 103 H 14 133/78 96 PG Care Time/CCT Total # of Minutes Spent Total Time Spent with Patient: Total time spent is greater than 50% in coordination of care (as documented) at patient's floor/unit and/or counseling patient: Coding Level of Care Code 47627 Subseq Hosp Care Lvl 3 Diagnoses UTI (urinary tract infection) N39.0 Bacteremia R78.81 Dementia F03.90 Atrial fibrillation with RVR I48.91 BPH (benign prostatic hyperplasia) N40.0 CVA (cerebral vascular accident) I63.9
[2021-04-08] MEDS: TAMSULOSIN HCL 0.4 MG CAP PO SCH (22:39)
[2021-04-08] MEDS: CHOLECALCIFEROL 1,000 UNITS 25 MCG TAB PO SCH (22:39)
[2021-04-09] MEDS: PIPERACILLIN/TAZOBACTAM 3.375 GM in DEXTROSE 5% 100 ML IV SCH ×3 (00:32→16:15)
[2021-04-09] MEDS: MEMANTINE HCL 10 MG TAB PO SCH ×2 (08:58→20:39)
[2021-04-09] MEDS: METOPROLOL TARTRATE 25 MG TAB PO SCH ×2 (08:58→20:39)
[2021-04-09] MEDS: APIXABAN 5 MG TABLET PO SCH ×2 (08:58→20:39)
[2021-04-09] MEDS: dilTIAZem HCL 180 MG CAPCR PO SCH (08:58)
[2021-04-09] MEDS: ADVANCED PROBIOTIC 1250 MG CAPSULE PO SCH (08:59)
[2021-04-09] MEDS: NYSTATIN SUSP 500,000 U/5 ML UDC PO SCH ×4 (08:59→20:39)
[2021-04-09] MEDS: RIVASTIGMINE TARTRATE 1.5 MG CAP PO SCH (08:59)
[2021-04-09] MEDS: DICLOFENAC SOD 1% GEL 100 GM TUBE EXT SCH ×4 (09:00→20:45)
[2021-04-09] MEDS: POLYETHYLENE (MIRALAX) 17 GM PACK PO SCH (09:00)
[2021-04-09] MEDS: NAPHAZOLIN/PHENIRAMIN OPH SOLN 75 DROPS/5 ML BTL OP SCH (09:00)
[2021-04-09] MEDS: DOCUSATE SODIUM SYRUP 100 MG/10 ML UDC PO SCH ×2 (09:58→20:39)
[2021-04-09] MEDS: CIPROFLOXACIN HCL 0.3% OP SOLN 2.5 ML BTL OPR SCH ×3 (13:30→20:35)
--- NOTE | 2021-04-09 17:03 | Hospitalist Progress Note ---
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 Was having some coughing with drinking on one day but current CXR without infiltrate - swallowing has returned to baseline -- No acute issues with swallowing - GRAVITY PROSPECTING OPERATOR did see patient and discussed - no signs of aspiration -- reports she has to coach operator him a bit more to swallow and eat properly when he is tired which may explain the other day as he went for imaging around midnight that day * Placed on Zosyn on admission and will need to complete IV treatment * Urine cx with pseudomonas/staph aureus -- Given pseudomonal infection may need to consider a 14 day antibiotic co urse regardless which would also give full bacteremia coverage if thought to be a true infection and not contaminant * Blood cultures 1 aerobic blood culture staph species, could be contaminant but given recurrent infections will repeat cultures/obtain ECHO (no vegetation but was a TTE) -- BCx with coag negative staph not lugdunesis so given 1 of 4 would suspect contaminant however given likely need for 14 days Abx would ultimately treat and possible bacteremia * Continue to monitor (2) Bacteremia: Plan: * possible, given recurrent infections but still favor contaminant. No skin/soft tissue issues appreciated on exam * remains on Zosyn (3) Dementia: Plan: Chronic * Frequent orientation, avoid delirium inducing agents * Continue Memantine 10mg po BID * Continue Rivastigmine At baseline per family -- also has a history of CVA and significantly debilitate d from previous stroke. Suspect some vascular dementia from prior CVA * --> Remains on ASA/Eliquis for 2nd prevention * No reflux symptoms reported, but could consider PPI therapy for GI prophylaxis given on chronic ASA/Eliquis for above (4) Atrial fibrillation with RVR: Plan: * Rate controlled; *Chronic Atrial Fibrillatin * Continue Apixaban 5mg po BID, diltiazem 180mg, metoprolol 25mg BID (5) BPH (benign prostatic hyperplasia): Plan: * Chronic, hx severe urinary retention * Continue Flomax * Bladder scan as needed -- has been voiding adequately with condom cath * UOP 0.5 ml/kg/hr, acceptable * Continue to monitor (6) CVA (cerebral vascular accident): Plan: * Hx of such -- see #3 * no acute deficits above baseline Neck Stiffness: RESOLVED - On 04/05 patient noted to not really move neck. Would not complain of pain to me but reported he had pain. At baseline he does not always follow commands making further assessment difficult. He did have some prominence of the R sternocleidomastoid and slightly elevated shoulder on the R side. Able to passively move his head to the left and lifting forward; no signs of meningeal irritation -- Review of outpatient records show paroxysmal twitching movements that are of unknown etiology. Suspect this could have been a torticollis, maybe spasmodic in origin given the chronic twitches. Gave Methocarbamol to help muscles as this will have less CABLE PLACER effects -- seems to have helped - He does have chronic L sided deficits from his previous CVAs and family does report he can lean to the right a lot so possibly contributing to some muscle component? R Hand/Elbow Pain: IMPROVING - Again he cannot give many details to assess. Seems to be tender on the top of the hand were a blood draw may have occurred and tenderness to elbow. Neither area is red or warm to touch - Uric acid WNL; XR wrist/elbow unremarkable; will defer U/S for DVT as he is on Eliquis - Can use ice; Voltaren; Tylenol -- seems to be helping - Review of previous records - UOC does not OA of R elbow and H/O R radial head fx in 2019 (possibly arthritic flair causing pain?) Plan: PT/OT consulted -- family does not want placed at all though Remains inpatient on continued IV abx/monitoring of cultures; possibly looking at 14 days total. Discussed with who is a bit uncertain about being able to do home IV antibiotics which is understandable. However exploring arm issues Admission and Anticipated Discharge Date Admission Date: April 01, 2021 Subjective No acute events overnight. Reporting R eye irritation this AM to the nurse but after drops reports feeling better. Is able to move the R arm and wrist a bit more today with less pain. Verbalizes no new complaints. Review of Systems Review of Systems: All systems reviewed & are unremarkable except as noted in Subjective Physical Exam Physical Exam: PHYSICAL EXAM General Appearance: WDWN in NAD HEENT: Head is normocephalic/atraumatic; Hearing grossly intact; Mucous membranes moist Neck: Supple; Trachea midline; Neg JVD Heart: irregulary irregular with no M/G/R Lungs: CTA in all lung dale bilaterally; Respirations unlabored; Neg accessory muscle use Abdomen: Soft, non-tender, non-distended; Positive BS x 4 quadrants Extremities: Neg cyanosis or edema; able to flex/extend both wrist and elbow more today but he is generally stiff and may have a bit of cogwheeling but hard to fully determine as he seems to resist some of the passive movement; no grimacing or yelling out in pain with movement; no warmth, erythema, or edema noted to wrist or elbow; there is mild healing bruising of the R wrist and some bruising on the top of the hand where lab work was obtained Neurological: Speech clear; chronic L sided neuro deficits from previous CVAs Psychiatric: Appropriate mood/affect Skin: Normal Color; Warm/Dry Results & Data Results & Data ([facility]) Vital Signs (Past 12 Hours) Vital Signs Temp Pulse Resp BP Pulse Ox 04/09/21 15:50 36.6 C 86 18 124/82 97 04/09/21 07:39 36.7 C 84 18 125/82 95 PG Care Time/CCT Total # of Minutes Spent Total Time Spent with Patient: Total time spent is greater than 50% in coordination of care (as documented) at patient's floor/unit and/or counseling patient: Coding Level of Care Code 25388 Subseq Hosp Care Lvl 2 Diagnoses UTI (urinary tract infection) N39.0 Bacteremia R78.81 Dementia F03.90 Atrial fibrillation with RVR I48.91 BPH (benign prostatic hyperplasia) N40.0 CVA (cerebral vascular accident) I63.9
[2021-04-09] MEDS: TAMSULOSIN HCL 0.4 MG CAP PO SCH (20:39)
[2021-04-09] MEDS: CHOLECALCIFEROL 1,000 UNITS 25 MCG TAB PO SCH (20:39)
[2021-04-10] MEDS: PIPERACILLIN/TAZOBACTAM 3.375 GM in DEXTROSE 5% 100 ML IV SCH ×3 (00:41→16:40)
[2021-04-10] MEDS: POLYETHYLENE (MIRALAX) 17 GM PACK PO SCH (08:33)
[2021-04-10] MEDS: APIXABAN 5 MG TABLET PO SCH ×2 (08:33→20:40)
[2021-04-10] MEDS: METOPROLOL TARTRATE 25 MG TAB PO SCH ×2 (08:33→20:42)
[2021-04-10] MEDS: CIPROFLOXACIN HCL 0.3% OP SOLN 2.5 ML BTL OPR SCH ×4 (08:33→20:40)
[2021-04-10] MEDS: DICLOFENAC SOD 1% GEL 100 GM TUBE EXT SCH ×4 (08:33→20:41)
[2021-04-10] MEDS: dilTIAZem HCL 180 MG CAPCR PO SCH (08:34)
[2021-04-10] MEDS: ADVANCED PROBIOTIC 1250 MG CAPSULE PO SCH (08:34)
[2021-04-10] MEDS: NYSTATIN SUSP 500,000 U/5 ML UDC PO SCH ×4 (08:34→20:40)
[2021-04-10] MEDS: DOCUSATE SODIUM SYRUP 100 MG/10 ML UDC PO SCH ×2 (08:34→20:41)
[2021-04-10] MEDS: RIVASTIGMINE TARTRATE 1.5 MG CAP PO SCH (08:34)
[2021-04-10] MEDS: MEMANTINE HCL 10 MG TAB PO SCH ×2 (08:34→20:42)
--- NOTE | 2021-04-10 15:15 | Hospitalist Progress Note ---
Date of Service April 10, 2021 Assessment & Plan (1) UTI (urinary tract infection): Plan: - Sent to hospital for pre-hospital UA/Cs with pseudomonas resistant to FLQ, also with staph aureus * Recurrent urine cx with staph species in past, had been frequently treated with Bactrim CLINICAL MEDICAL ASSISTANT per review of notes * Afebrile (a couple low grade at 100 and will monitor - nothing for > 48 hrs..one reading at 99), HD stable, nontoxic in appearance, WBC WNL -- Monitor for addition source? Was having some coughing with drinking on one day but current CXR without infiltrate - swallowing has returned to baseline -- No acute issues with swallowing - PARTY PLAN SELLING DISTRIBUTOR did see patient and discussed - no signs of aspiration -- reports she has to retail performance coach him a bit more to swallow and eat properly when he is tired which may explain the other day as he went for imaging around midnight that day * Placed on Zosyn on admission and will need to complete IV treatment * Urine cx with pseudomonas/staph aureus -- Given pseudomonal infection may need to consider a 14 day antibiotic course regardless which would also give full bacteremia coverage if thought to be a true infection and not contaminant * Blood cultures 1 aerobic blood culture staph species, could be contaminant but given recurrent infections will repeat cultures/obtain ECHO (no vegetation but was a TTE) -- BCx with coag negative staph not lugdunesis so given 1 of 4 would suspect contaminant however given likely need for 14 days Abx would ultimately treat possible bacteremia * Continue to monitor (2) Bacteremia: Plan: * possible, given recurrent infections but still favor contaminant. No skin/soft tissue issues appreciated on exam * remains on Zosyn (3) Dementia: Plan: Chronic * Frequent orientation, avoid delirium inducing agents * Continue Memantine 10mg po BID * Continue Rivastigmine At baseline per family -- also has a history of CVA and significantly debilitated from previous stroke. Suspect some vascular dementia from prior CVA * --> Remains on ASA/Eliquis for 2nd prevention * reports he was told to hold ASA x 7 days as he had a nose bleed. Does have a bit of dried blood in R nare but no active nose bleeds. Could consider restarting ASA or continue on D/C * No reflux symptoms reported, but could consider PPI therapy for GI prophylaxis given on chronic ASA/Eliquis for above (4) Atrial fibrillation with RVR: Plan: * Rate controlled; *Chronic Atrial Fibrillatin * Continue Apixaban 5mg po BID, diltiazem 180mg, metoprolol 25mg BID (5) BPH (benign prostatic hyperplasia): Plan: * Chronic, hx severe urinary retention * Continue Flomax * Bladder scan as needed -- has been voiding adequately with condom cath * UOP 0.5 ml/kg/hr, acceptable * Continue to monitor (6) CVA (cerebral vascular accident): Plan: * Hx of such * no acute deficits above baseline Neck Stiffness: RESOLVED - On 04/05 patient noted to not really move neck. Would not complain of pain to me but reported he had pain. At baseline he does not always follow commands making further assessment difficult. He did have some prominence of the R sternocleidomastoid and slightly elevated shoulder on the R side. Able to passively move his head to the left and lifting forward; no signs of meningeal irritation -- Review of outpatient records show paroxysmal twitching movements that are of unknown etiology. Suspect this could have been a torticollis, maybe spasmodic in origin given the chronic twitches. Gave Methocarbamol to help muscles as this will have less HACKSAW INSPECTOR effects -- seems to have helped - He does have chronic L sided deficits from his previous CVAs and family does report he can lean to the right a lot so possibly contributing to some muscle component? R Hand/Elbow Pain: IMPROVING - Again he cannot give many details to assess. Seems to be tender on the top of the hand were a blood draw may have occurred and tenderness to elbow. Neither area is red, swollen, or warm to touch - On 04/10 he is able to actively move arm more and bend at elbow. 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 Discussed with who is a bit uncertain about being able to do home IV antibiotics which is understandable. However exploring arm issues as he is a full care at home. does have maritza lift and able to care adequately for him at home. Admission and Anticipated Discharge Date Admission Date: April 01, 2021 Subjective No acute events overnight. Verbalizes no complaints. When asked specifically about his right eye he reports this feels better. Also noted to be actively moving his right arm more independently now. On passive range of motion, his right upper extremity is generally stiff but he may be resisting some. Does not seem to have pain in the wrist anymore. Did express pain when elbow was flexed past the 45 degree irwin. Both the wrist and elbow remain nonedematous, not warm to touch, no erythema. Review of Systems Review of Systems: All systems reviewed & are unremarkable except as noted in Subjective Physical Exam Physical Exam: PHYSICAL EXAM General Appearance: WDWN in NAD HEENT: Head is normocephalic/atraumatic; Hearing grossly intact; Mucous membranes moist Neck: Supple; Trachea midline; Neg JVD Heart: irregulary irregular with no M/G/R Lungs: CTA in all lung dale bilaterally; Respirations unlabored; Neg accessory muscle use Abdomen: Soft, non-tender, non-distended; Positive BS x 4 quadrants Extremities: Neg cyanosis or edema; able to flex/extend both wrist and elbow more today but he is generally stiff and may have a bit of cogwheeling but hard to fully determine as he seems to resist some of the passive movement; no grimacing or yelling out in pain with movement; no warmth, erythema, or edema noted to wrist or elbow; there is mild healing bruising of the R wrist and some bruising on the top of the hand where lab work was obtained Neurological: Speech clear; chronic L sided neuro deficits from previous CVAs Psychiatric: Appropriate mood/affect Skin: Normal Color; Warm/Dry Results & Data Results & Data ([facility]) Vital Signs (Past 12 Hours) Vital Signs Temp Pulse Resp BP Pulse Ox 04/10/21 07:47 36.8 C 91 H 16 127/82 96 PG Care Time/CCT Total # of Minutes Spent Total Time Spent with Patient: Total time spent is greater than 50% in coordination of care (as documented) at patient's floor/unit and/or counseling patient: Coding Level of Care Code 03144 Subseq Hosp Care Lvl 3 Diagnoses UTI (urinary tract infection) N39.0 Bacteremia R78.81 Dementia F03.90 Atrial fibrillation with RVR I48.91 BPH (benign prostatic hyperplasia) N40.0 CVA (cerebral vascular accident) I63.9
[2021-04-10] MEDS: CHOLECALCIFEROL 1,000 UNITS 25 MCG TAB PO SCH (20:41)
[2021-04-10] MEDS: TAMSULOSIN HCL 0.4 MG CAP PO SCH (20:42)
[2021-04-11] MEDS: PIPERACILLIN/TAZOBACTAM 3.375 GM in DEXTROSE 5% 100 ML IV SCH ×4 (00:52→23:49)
[2021-04-11 07:16] LABS: Hematocrit (blood only) 41.2 % (42-52); Hemoglobin 13.4 g/dL (14.0-18.0); Mean Corpuscular Hemoglobin 30.7 pg (25-34); Mean Corpuscular Hgb Conc 32.5 g/dL (32-36); Mean Corpuscular Volume 94.5 fL (80-100); Mean Platelet Volume 10.1 fL (7.4-10.4); Platelet Count 251 K/uL (130-400); RDW Coefficient of Variation 14.2 % (11.5-14.5); RDW Standard Deviation 49.4 fL (36.4-46.3); Red Blood Count 4.36 M/uL (4.7-6.1); White Blood Count 7.83 K/uL (4.8-10.8)
[2021-04-11 07:36] LABS: BUN Creatinine Ratio 17.6 (10-20); Creatinine Clr Calc Pharmacy 73.5 ml/min; Est GFR (African American) 95.9 ml/min; Est GFR (Non-African American) 82.7 ml/min; Potassium 3.9 mmol/L (3.5-5.1)
--- NOTE | 2021-04-11 08:23 | Hospitalist Progress Note ---
Date of Service April 11, 2021 Assessment & Plan (1) UTI (urinary tract infection): Plan: - Sent to hospital for pre-hospital UA/Cs with pseudomonas resistant to FLQ, also with staph aureus * Recurrent urine cx with staph species in past, had been frequently treated with Bactrim HAND SILVERING SUPERVISOR per review of notes * Afebrile (a couple low grade at 100 and will monitor - nothing for > 48 hrs..one reading at 99), HD stable, nontoxic in appearance, WBC WNL -- Monitor for addition source? Was having some coughing with drinking on one day but current CXR without infiltrate - swallowing has returned to baseline -- No acute issues with swallowing - TALENT ACQUISITION OPERATIONS MANAGER did see patient and discussed - no signs of aspiration -- reports she has to college sports coach him a bit more to swallow and eat properly when he is tired which may explain the other day as he went for imaging ~[place] day of * Placed on Zosyn on admission and will need to complete IV treatment * Urine cx with pseudomonas/staph aureus Given pseudomonal infection may need to consider a 14 day antibiotic course regardless which would also give full bacteremia coverage if thought to be a true infection and not contaminant * Blood cultures 1 aerobic blood culture staph species, could be contaminant but given recurrent infections will repeat cultures/obtain ECHO (no vegetation but was a TTE) -- BCx with coag negative staph not lugdunesis so given 1 of 4 would suspect contaminant however given likely need for 14 days Abx would ultimately treat possible bacteremia Last day of treatment would be 04/14, possible d/c that evening vs set up transport for AM on Sunday. CM following , as would like transportation arranged through insurance 24hr in advance (2) Bacteremia: Plan: * possible, given recurrent infections but still favor contaminant. No skin/soft tissue issues appreciated on exam * remains on Zosyn, to complete 14 day course for urinary source as above, which would also cover for blood, although 1/4 bottles and likely contaminent (3) Dementia: Plan: Chronic * Frequent orientation, avoid delirium inducing agents * Continue Memantine 10mg po BID * Continue Rivastigmine At baseline per family -- also has a history of CVA and significantly debilitated from previous stroke. Suspect some vascular dementia from prior CVA * --> Remains on ASA/Eliquis for 2nd prevention * reports he was told to hold ASA x 7 days as he had a nose bleed. Does have a bit of dried blood in R nare but no active nose bleeds. Could consider restarting ASA or continue on D/C * No reflux symptoms reported, but could consider PPI therapy for GI prophylaxis given on chronic ASA/Eliquis for above -- will give pepcid IVP while inpatient (4) Atrial fibrillation with RVR: Plan: * Rate controlled; *Chronic Atrial Fibrillatin * Continue Apixaban 5mg po BID, diltiazem 180mg, metoprolol 25mg BID (5) BPH (benign prostatic hyperplasia): Plan: * Chronic, hx severe urinary retention * Continue Flomax * Bladder scan as needed -- has been voiding adequately with condom cath * UOP acceptable * Continue to monitor (6) CVA (cerebral vascular accident): Plan: * Hx of such * no acute deficits above baseline Neck Stiffness: RESOLVED * On 04/05 patient noted to not really move neck. Would not complain of pain to me but reported he had pain. At baseline he does not always follow commands making further assessment difficult. He did have some prominence of the R sternocleidomastoid and slightly elevated shoulder on the R side. Able to passively move his head to the left and lifting forward; no signs of meningeal irritation * -- Review of outpatient records show paroxysmal twitching movements that are of unknown etiology. Suspect this could have been a torticollis, maybe spasmodic in origin given the chronic twitches. Gave Methocarbamol to help muscles as this will have less HVAC INSTRUCTOR effects -- seems to have helped * He does have chronic L sided deficits from his previous CVAs and family does report he can lean to the right a lot so possibly contributing to some muscle component? R Hand/Elbow Pain: IMPROVING * Again he cannot give many details to assess. Seems to be tender on the top of the hand were a blood draw may have occurred and tenderness to elbow. Neither area is red, swollen, or warm to touch * On 04/10 he is able to actively move arm more and bend at elbow. 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 Discussed with who is a bit uncertain about being able to do home IV antibiotics which is understandable. However exploring arm issues as he is a full care at home -- improving as above. does have Kalia lift and able to care adequately for him at home. Admission and Anticipated Discharge Date Admission Date: April 01, 2021 Subjective patient evaluated this morning just got cleaned up with aides no issues reported overnight patient denies any pain, fever, chills, chest pain, shortness of breath, abdominal pain, nausea or vomiting. Abx to be complete later this week,and he is hopeful to return home with once completed. Questions/concerns addressed at this time. Review of Systems Review of Systems: All systems reviewed & are unremarkable except as noted in HPI & below Physical Exam Physical Exam: The patient appeared well nourished and normally developed, no acute distress Head exam is normocephalic atraumatic , mmm Neck is without JVD, thyromegaly, or carotid bruits. Lungs CTAB, no w/c/r, on room air CV: irregularly irregular, no m/r/g, no edema, cap refill < 3 seconds GI: +BS, soft, nontender Extremities: nonedematous and both pedal pulses are present Neurologic: alert and follows some commands is hard of hearing and not very talkative, L sided hemianopsia from prior CVA, movement of neck without discomfort, able to flex/extend wrist/elbow today Skin is warm, dry, without appreciable lesions/wounds Psychologically alert, oriented to person, pleasantly confused at times, cooperative Results & Data Results & Data ([facility]) Vital Signs (Past 12 Hours) Vital Signs Temp Pulse Resp BP Pulse Ox 04/11/21 07:26 36.8 C 85 16 115/76 97 04/10/21 22:33 37.3 C 101 H 18 134/85 96 Laboratory Results 04/11/21 04/11/21 Range/Units 06:44 06:44 WBC 7.83 (4.8-10.8) K/uL RBC 4.36 L (4.7-6.1) M/uL Hgb 13.4 L (14.0-18.0) g/dL Hct 41.2 L (42-52) % MCV 94.5 (80-100) fL MCH 30.7 (25-34) pg MCHC 32.5 (32-36) g/dL RDW Std Deviation 49.4 H (36.4-46.3) fL RDW Coeff of Alex 14.2 (11.5-14.5) % Plt Count 251 (130-400) K/uL MPV 10.1 (7.4-10.4) fL Sodium 138 (136-145) mmol/L Potassium 3.9 (3.5-5.1) mmol/L Chloride 106 (98-107) mmol/L Carbon Dioxide 25 (21-32) mmol/L Anion Gap 7 (3-11) BUN 16 (6-23) mg/dl Creatinine 0.91 (0.6-1.4) mg/dl Est Cr Clr Drug Dosing 73.5 ml/min Est GFR ( Amer) 95.9 ml/min Est GFR (Non-Af Amer) 82.7 ml/min BUN/Creatinine Ratio 17.6 (10-20) Glucose 118 H (70-99(Fasting)) mg/dl Calcium 9.0 (8.5-10.1) mg/dl PG Care Time/CCT Total # of Minutes Spent Total Time Spent with Patient: Total time spent is greater than 50% in coordination of care (as documented) at patient's floor/unit and/or counseling patient: Coding Level of Care Code 14697 Subseq Hosp Care Lvl 2 Diagnoses UTI (urinary tract infection) N39.0 Bacteremia R78.81 Dementia F03.90 Atrial fibrillation with RVR I48.91 BPH (benign prostatic hyperplasia) N40.0 CVA (cerebral vascular accident) I63.9
[2021-04-11] MEDS: ADVANCED PROBIOTIC 1250 MG CAPSULE PO SCH (09:21)
[2021-04-11] MEDS: RIVASTIGMINE TARTRATE 1.5 MG CAP PO SCH (09:22)
[2021-04-11] MEDS: dilTIAZem HCL 180 MG CAPCR PO SCH (09:22)
[2021-04-11] MEDS: METOPROLOL TARTRATE 25 MG TAB PO SCH ×2 (09:23→20:29)
[2021-04-11] MEDS: APIXABAN 5 MG TABLET PO SCH ×2 (09:23→20:29)
[2021-04-11] MEDS: DOCUSATE SODIUM SYRUP 100 MG/10 ML UDC PO SCH ×2 (09:23→20:29)
[2021-04-11] MEDS: MEMANTINE HCL 10 MG TAB PO SCH ×2 (09:23→20:29)
[2021-04-11] MEDS: POLYETHYLENE (MIRALAX) 17 GM PACK PO SCH (09:23)
[2021-04-11] MEDS: DICLOFENAC SOD 1% GEL 100 GM TUBE EXT SCH ×4 (09:24→20:28)
[2021-04-11] MEDS: CIPROFLOXACIN HCL 0.3% OP SOLN 2.5 ML BTL OPR SCH ×4 (09:24→20:28)
[2021-04-11] MEDS: NYSTATIN SUSP 500,000 U/5 ML UDC PO SCH (09:24)
[2021-04-11] MEDS: FAMOTIDINE 20 MG in SYRINGE 3 ML IV SCH (16:52)
[2021-04-11] MEDS: TAMSULOSIN HCL 0.4 MG CAP PO SCH (20:28)
[2021-04-11] MEDS: CHOLECALCIFEROL 1,000 UNITS 25 MCG TAB PO SCH (20:28)
--- NOTE | 2021-04-12 07:16 | XRay Report ---
XR chest 1V portable CLINICAL HISTORY: Fever, uti,? Atelectasis COMPARISON STUDY: Chest radiograph April 06, 2021. FINDINGS: No pneumothorax or pleural effusion is noted. Cardiomegaly is unchanged. No evidence for pu lmonary edema. No consolidation is identified to suggest pneumonia. Mediastinal contours are stable. IMPRESSION: No acute cardiopulmonary findings. ACT 112: Negative or not required by law. Electronically signed by: Tahir Sullivan M.D. 04/12/2021 7:15 AM
--- NOTE | 2021-04-12 07:41 | Hospitalist Progress Note ---
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 Was having some coughing with drinking on one day but current CXR without infiltrate - swallowing has returned to baseline -- No acute issues with swallowing - GENERAL INSPECTOR did see patient and discussed - no signs of aspiration -- reports she has to dramatic coach him a bit more to swallow and eat properly when he is tired which may explain the other day as he went for imaging [place] [facility] [place] * Placed on Zosyn on admission and will need to complete IV treatment * Urine cx with pseudomonas/staph aureus Given pseudomonal infection may need to consider a 14 day antibiotic course regardless which would also give full bacteremia coverage if thought to be a true infection and not contaminant * Blood cultures 1 aerobic blood culture staph species, could be contaminant but given recurrent infections will repeat cultures/obtain ECHO (no vegetation but was a TTE) -- BCx with coag negative staph not lugdunesis so given 1 of 4 would suspect contaminant however given likely need for 14 days Abx would ultimately treat possible bacteremia Last day of treatment would be 04/14, possible d/c that evening vs set up transport for AM on Sunday. CM following , as would like transportation arranged through insurance 24hr in advance (2) Bacteremia: Plan: * possible, given recurrent infections but still favor contaminant. No skin/soft tissue issues appreciated on exam * remains on Zosyn, to complete 14 day course for urinary source as above, which would also cover for blood, although 1/4 bottles and likely contaminent (3) Dementia: Plan: Chronic * Frequent orientation, avoid delirium inducing agents * Continue Memantine 10mg po BID * Continue Rivastigmine At baseline per family -- also has a history of CVA and significantly debilitated from previous stroke. Suspect some vascular dementia from prior CVA * --> Remains on ASA/Eliquis for 2nd prevention * reports he was told to hold ASA x 7 days as he had a nose bleed. Does have a bit of dried blood in R nare but no active nose bleeds. Could consider restarting ASA or continue on D/C * No reflux symptoms reported, but could consider PPI therapy for GI prophylaxis given on chronic ASA/Eliquis for above * -- will give pepcid IVP while inpatient (4) Atrial fibrillation with RVR: Plan: * Rate controlled; *Chronic Atrial Fibrillatin * Continue Apixaban 5mg po BID, diltiazem 180mg, metoprolol 25mg BID (5) BPH (benign prostatic hyperplasia): Plan: * Chronic, hx severe urinary retention * Continue Flomax * Bladder scan as needed -- has been voiding adequately with condom cath * UOP acceptable * Continue to monitor (6) CVA (cerebral vascular accident): Plan: * Hx of such * no acute deficits above baseline Neck Stiffness: RESOLVED * On 04/05 patient noted to not really move neck. Would not complain of pain to me but reported he had pain. At baseline he does not always follow commands making further assessment difficult. He did have some prominence of the R sternocleidomastoid and slightly elevated shoulder on the R side. Able to passively move his head to the left and lifting forward; no signs of meningeal irritation * -- Review of outpatient records show paroxysmal twitching movements that are of unknown etiology. Suspect this could have been a torticollis, maybe spasmodic in origin given the chronic twitches. Gave Methocarbamol to help muscles as this will have less BANQUET KITCHEN SUPERVISOR effects -- seems to have helped * He does have chronic L sided deficits from his previous CVAs and family does report he can lean to the right a lot so possibly contributing to some muscle component? R Hand/Elbow Pain: IMPROVING * Again he cannot give many details to assess. Seems to be tender on the top of the hand were a blood draw may have occurred and tenderness to elbow. Neither area is red, swollen, or warm to touch * On 04/10 he is able to actively move arm more and bend at elbow. 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 Discussed with who is a bit uncertain about being able to do home IV antibiotics which is understandable. However exploring arm issues as he is a full care at home -- improving as above. does have Kalia lift and able to care adequately for him at home. Admission and Anticipated Discharge Date Admission Date: April 01, 2021 Subjective patient evaluated this afternoon doing alright more movement of RUE having some lower abdominal pain but not increasingly uncomfortable on exam and states better than in previous days. Eyes still with some puffiness and eye drops continued. No fever, chills, chest pain, shortness of breath reported. Review of Systems Review of Systems: All systems reviewed & are unremarkable except as noted in HPI & below Physical Exam Physical Exam: The patient appeared well nourished and normally developed, no acute distress Head exam is normocephalic atraumatic , mmm Eyes: mild puffiness of R eye, no drainage noted, EOMI, non-tender Neck is without JVD, thyromegaly, or carotid bruits. Lungs CTAB, no w/c/r, on room air CV: irregularly irregular, no m/r/g, no edema, cap refill < 3 seconds GI: +BS, soft, nontender Extremities: nonedematous and both pedal pulses are present Neurologic: alert and follows some commands is hard of hearing and not very talkative, L sided hemianopsia from prior CVA, movement of neck without discomfort, able to flex/extend wrist/elbow today Skin is warm, dry, without appreciable lesions/wounds Psychologically alert, oriented to person, pleasantly confused at times, cooperative Results & Data Results & Data ([facility]) Vital Signs (Past 12 Hours) Vital Signs Temp Pulse Resp BP Pulse Ox 04/12/21 07:25 36.6 C 109 H 18 133/76 94 04/11/21 22:28 37.9 C H 85 18 130/71 96 Diagnostic Findings Chest X-Ray 04/12/21 05:59 XR chest 1V portable CLINICAL HISTORY: Fever, uti,? Atelectasis COMPARISON STUDY: Chest radiograph April 06, 2021. FINDINGS: No pneumothorax or pleural effusion is noted. Cardiomegaly is unchanged. No evidence for pulmonary edema. No consolidation is identified to suggest pneumonia. Mediastinal contours are stable. IMPRESSION: No acute cardiopulmonary findings. ACT 112: Negative or not required by law. Electronically signed by: Tahir Sullivan M.D. 04/12/2021 7:15 AM PG Care Time/CCT Total # of Minutes Spent Total Time Spent with Patient: Total time spent is greater than 50% in coordination of care (as documented) at patient's floor/unit and/or counseling patient: Coding Level of Care Code 94624 Subseq Hosp Care Lvl 2 Diagnoses UTI (urinary tract infection) N39.0 Bacteremia R78.81 Dementia F03.90 Atrial fibrillation with RVR I48.91 BPH (benign prostatic hyperplasia) N40.0 CVA (cerebral vascular accident) I63.9
[2021-04-12] MEDS: PIPERACILLIN/TAZOBACTAM 3.375 GM in DEXTROSE 5% 100 ML IV SCH ×2 (07:43→16:29)
[2021-04-12] MEDS: CIPROFLOXACIN HCL 0.3% OP SOLN 2.5 ML BTL OPR SCH ×4 (07:44→20:26)
[2021-04-12 08:19] LABS: Basophils # (auto) 0.06 K/uL (0-0.2); Basophils % (auto) 0.7 %; Eosinophils # (auto) 0.33 K/uL (0-0.5); Eosinophils % (auto) 3.6 %; Hemoglobin 13.5 g/dL (14.0-18.0); Immature Granulocytes # (auto) 0.02 K/uL (0.00-0.02); Immature Granulocytes % (auto) 0.2 %; Lymphocytes # (auto) 2.02 K/uL (1.2-3.4); Mean Corpuscular Hemoglobin 30.8 pg (25-34); Mean Corpuscular Hgb Conc 32.1 g/dL (32-36); Mean Corpuscular Volume 95.7 fL (80-100); Mean Platelet Volume 10.3 fL (7.4-10.4); Monocytes # (auto) 0.66 K/uL (0.11-0.59); Monocytes % (auto) 7.2 %; Neutrophils # (auto) 6.11 K/uL (1.4-6.5); Neutrophils % (auto) 66.3 %; Platelet Count 264 K/uL (130-400); RDW Coefficient of Variation 14.6 % (11.5-14.5); RDW Standard Deviation 51.3 fL (36.4-46.3); Red Blood Count 4.39 M/uL (4.7-6.1)
[2021-04-12] MEDS: FAMOTIDINE 20 MG in SYRINGE 3 ML IV SCH (08:21)
[2021-04-12] MEDS: MEMANTINE HCL 10 MG TAB PO SCH ×2 (08:21→20:23)
[2021-04-12] MEDS: ADVANCED PROBIOTIC 1250 MG CAPSULE PO SCH (08:21)
[2021-04-12] MEDS: DOCUSATE SODIUM SYRUP 100 MG/10 ML UDC PO SCH ×2 (08:22→20:22)
[2021-04-12] MEDS: POLYETHYLENE (MIRALAX) 17 GM PACK PO SCH (08:22)
[2021-04-12] MEDS: dilTIAZem HCL 180 MG CAPCR PO SCH (08:22)
[2021-04-12] MEDS: DICLOFENAC SOD 1% GEL 100 GM TUBE EXT SCH ×4 (08:22→20:24)
[2021-04-12] MEDS: METOPROLOL TARTRATE 25 MG TAB PO SCH ×2 (08:22→20:23)
[2021-04-12] MEDS: RIVASTIGMINE TARTRATE 1.5 MG CAP PO SCH (08:22)
[2021-04-12] MEDS: APIXABAN 5 MG TABLET PO SCH ×2 (08:22→20:22)
[2021-04-12 08:43] LABS: Albumin Globulin Ratio 0.9 (0.9-2); Albumin Level 3.4 gm/dl (3.4-5.0); BUN Creatinine Ratio 21.3 (10-20); Bilirubin,Total 0.6 mg/dl (0.2-1.0); Calcium 9.1 mg/dl (8.5-10.1); Creatinine Clr Calc Pharmacy 71.2 ml/min; Est GFR (African American) 92.2 ml/min; Est GFR (Non-African American) 79.6 ml/min; Globulin 3.8 gm/dl (2.5-4.0); Potassium 4.1 mmol/L (3.5-5.1); Total Protein 7.2 gm/dl (6.0-8.3)
[2021-04-12] MEDS: ACETAMINOPHEN 325 MG TAB PO PRN (12:22)
[2021-04-12] MEDS: CHOLECALCIFEROL 1,000 UNITS 25 MCG TAB PO SCH (20:22)
[2021-04-12] MEDS: TAMSULOSIN HCL 0.4 MG CAP PO SCH (20:23)
[2021-04-13] MEDS: PIPERACILLIN/TAZOBACTAM 3.375 GM in DEXTROSE 5% 100 ML IV SCH ×3 (00:18→15:57)
[2021-04-13] MEDS: CIPROFLOXACIN HCL 0.3% OP SOLN 2.5 ML BTL OPR SCH ×4 (07:48→20:39)
[2021-04-13 08:15] LABS: Basophils # (auto) 0.07 K/uL (0-0.2); Eosinophils # (auto) 0.34 K/uL (0-0.5); Eosinophils % (auto) 4.8 %; Hematocrit (blood only) 41.5 % (42-52); Hemoglobin 13.1 g/dL (14.0-18.0); Immature Granulocytes # (auto) 0.02 K/uL (0.00-0.02); Immature Granulocytes % (auto) 0.3 %; Lymphocytes # (auto) 1.88 K/uL (1.2-3.4); Lymphocytes % (auto) 26.3 %; Mean Corpuscular Hemoglobin 30.2 pg (25-34); Mean Corpuscular Hgb Conc 31.6 g/dL (32-36); Mean Corpuscular Volume 95.6 fL (80-100); Mean Platelet Volume 10.4 fL (7.4-10.4); Monocytes # (auto) 0.55 K/uL (0.11-0.59); Monocytes % (auto) 7.7 %; Neutrophils # (auto) 4.28 K/uL (1.4-6.5); Neutrophils % (auto) 59.9 %; Platelet Count 272 K/uL (130-400); RDW Coefficient of Variation 14.5 % (11.5-14.5); RDW Standard Deviation 51.1 fL (36.4-46.3); Red Blood Count 4.34 M/uL (4.7-6.1); White Blood Count 7.14 K/uL (4.8-10.8)
[2021-04-13] MEDS: DICLOFENAC SOD 1% GEL 100 GM TUBE EXT SCH ×4 (08:27→20:40)
[2021-04-13] MEDS: ADVANCED PROBIOTIC 1250 MG CAPSULE PO SCH (08:27)
[2021-04-13] MEDS: RIVASTIGMINE TARTRATE 1.5 MG CAP PO SCH (08:27)
[2021-04-13] MEDS: POLYETHYLENE (MIRALAX) 17 GM PACK PO SCH (08:27)
[2021-04-13] MEDS: DOCUSATE SODIUM SYRUP 100 MG/10 ML UDC PO SCH ×2 (08:27→20:39)
[2021-04-13] MEDS: APIXABAN 5 MG TABLET PO SCH ×2 (08:27→20:39)
[2021-04-13] MEDS: dilTIAZem HCL 180 MG CAPCR PO SCH (08:27)
[2021-04-13] MEDS: MEMANTINE HCL 10 MG TAB PO SCH ×2 (08:28→20:39)
[2021-04-13] MEDS: METOPROLOL TARTRATE 25 MG TAB PO SCH ×2 (08:28→20:39)
[2021-04-13] MEDS: FAMOTIDINE 20 MG in SYRINGE 3 ML IV SCH (08:28)
--- NOTE | 2021-04-13 08:35 | Hospitalist Progress Note ---
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 Was having some coughing with drinking on one day but current CXR without infiltrate - swallowing has returned to baseline -- No acute issues with swallowing - SALON/SPA MANAGER did see patient and discussed - no signs of aspiration -- reports she has to life skills coach him a bit more to swallow and eat properly when he is tired which may explain the other day as he went for imaging [place] * Placed on Zosyn on admission and will need to complete IV treatment * Urine cx with pseudomonas/staph aureus Given pseudomonal infection may need to consider a 14 day antibiotic course regardless which would also give full bacteremia coverage if thought to be a true infection and not contaminant * Blood cultures 1 aerobic blood culture staph species, could be contaminant but given recurrent infections will repeat cultures/obtain ECHO (no vegetation but was a TTE) -- BCx with coag negative staph not lugdunesis so given 1 of 4 would suspect contaminant however given likely need for 14 days Abx would ultimately treat possible bacteremia Last day of treatment would be 04/15 after AM dose --> arranging for d/c/transport with on Sunday. CM following (2) Bacteremia: Plan: * possible, given recurrent infections but still favor contaminant. No skin/soft tissue issues appreciated on exam * remains on Zosyn, to complete 14 day course for urinary source as above, which would also cover for blood, although 1/4 bottles and likely contaminent (3) Dementia: Plan: Chronic * Frequent orientation, avoid delirium inducing agents * Continue Memantine 10mg po BID * Continue Rivastigmine At baseline per family -- also has a history of CVA and significantly debilitated from previous stroke. Suspect some vascular dementia from prior CVA * --> Remains on ASA/Eliquis for 2nd prevention * reports he was told to hold ASA x 7 days as he had a nose bleed. Does have a bit of dried blood in R nare but no active nose bleeds. Could consider restarting ASA or continue on D/C * No reflux symptoms reported, but could consider PPI therapy for GI prophylaxis given on chronic ASA/Eliquis for above * -- will give pepcid IVP while inpatient B12 checked as well (hx elevated homocysteine 2019 as well as MMA 345) --> start IM injections while inpatient for B12 244, low for age, and given dementia would replace and continue PO supplementation at discharge On eliquis for afib/DVT prevention, but consider placing on B6/folate replacement as well? (4) Atrial fibrillation with RVR: Plan: * Rate controlled; *Chronic Atrial Fibrillatin * Continue Apixaban 5mg po BID, diltiazem 180mg, metoprolol 25mg BID (5) BPH (benign prostatic hyperplasia): Plan: * Chronic, hx severe urinary retention * Continue Flomax * Bladder scan as needed -- has been voiding adequately with condom cath * UOP acceptable but has been having unmeasured voids * Continue to monitor (6) CVA (cerebral vascular accident): Plan: * Hx of such * no acute deficits above baseline Neck Stiffness: RESOLVED * On 04/05 patient noted to not really move neck. Would not complain of pain to me but reported he had pain. At baseline he does not always follow commands making further assessment difficult. He did have some prominence of the R sternocleidomastoid and slightly elevated shoulder on the R side. Able to passively move his head to the left and lifting forward; no signs of meningeal irritation * -- Review of outpatient records show paroxysmal twitching movements that are of unknown etiology. Suspect this could have been a torticollis, maybe spasmodic in origin given the chronic twitches. Gave Methocarbamol to help muscles as this will have less ANTENNA ENGINEER effects -- seems to have helped * He does have chronic L sided deficits from his previous CVAs and family does report he can lean to the right a lot so possibly contributing to some muscle component? R Hand/Elbow Pain: IMPROVING * Again he cannot give many details to assess. Seems to be tender on the top of the hand were a blood draw may have occurred and tenderness to elbow. Neither area is red, swollen, or warm to touch * On 04/10 he is able to actively move arm more and bend at elbow. 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 Continue ROM/elevation exercises (7) B12 deficiency: Plan: B12 checked as well (hx elevated homocysteine 2018 as well as MMA 345) --> start IM injections while inpatient for B12 244, low for age, and given dementia would replace and continue PO supplementation at discharge Also on Cipro eye drops for R eye for possible conjunctivitis --> continued improvement, complete treatment tomorrow Continue soap/gentle cleansing to remove debris Avoid rubbing the eye continue to monitor Plan: PT/OT consulted -- family does not want placed at all though Remains inpatient on continued IV abx/monitoring of cultures; looking at 14 days total (04/15 after AM dose as started evening in ER on admission). does have Kalia lift and able to care adequately for him at home. Planning for d/c Sunday after abx completion Attempted to call this afternoon, [facility]. Will reach out again tomorrow Admission and Anticipated Discharge Date Admission Date: April 01, 2021 Subjective doing well no complaints no issues reported by nursing staff eye looks better today, less puffiness improved movement of RUE continued antibiotics and plans for d/c on sunday after the noon dose, initially felt to be able to be completed on but upon review would be 14 days after morning dose 04/15. Review of Systems Review of Systems: All systems reviewed & are unremarkable except as noted in HPI & below Physical Exam Physical Exam: The patient appeared well nourished and normally developed, no acute distress Head exam is normocephalic atraumatic , mmm Eyes: mild puffiness of R eye (DECREASED), no drainage noted, EOMI, non-tender Neck is without JVD, thyromegaly, or carotid bruits. Lungs CTAB, no w/c/r, on room air CV: irregularly irregular, no m/r/g, no edema, cap refill < 3 seconds GI: +BS, soft, nontender Extremities: nonedematous and both pedal pulses are present Neurologic: alert and follows some commands is hard of hearing and not very talkative, L sided hemianopsia from prior CVA, movement of neck without discomfort, able to flex/extend wrist/elbow today and has been moving more Skin is warm, dry, without appreciable lesions/wounds Psychologically alert, oriented to person, pleasantly confused at times, cooperative Results & Data Results & Data ([facility]) Vital Signs (Past 12 Hours) Vital Signs Temp Pulse Resp BP Pulse Ox 04/13/21 07:39 36.6 C 83 16 114/75 98 04/12/21 22:12 36.5 C 82 16 111/73 98 Laboratory Results 04/13/21 04/13/21 Range/Units 07:22 07:22 WBC 7.14 (4.8-10.8) K/uL RBC 4.34 L (4.7-6.1) M/uL Hgb 13.1 L (14.0-18.0) g/dL Hct 41.5 L (42-52) % MCV 95.6 (80-100) fL MCH 30.2 (25-34) pg MCHC 31.6 L (32-36) g/dL RDW Std Deviation 51.1 H (36.4-46.3) fL RDW Coeff of Alex 14.5 (11.5-14.5) % Plt Count 272 (130-400) K/uL MPV 10.4 (7.4-10.4) fL Immature Gran % (Auto) 0.3 % Neut % (Auto) 59.9 % Lymph % (Auto) 26.3 % Dunn % (Auto) 7.7 % Eos % (Auto) 4.8 % Baso % (Auto) 1.0 % Neut # (Auto) 4.28 (1.4-6.5) K/uL Lymph # (Auto) 1.88 (1.2-3.4) K/uL Dunn # (Auto) 0.55 (0.11-0.59) K/uL Eos # (Auto) 0.34 (0-0.5) K/uL Baso # (Auto) 0.07 (0-0.2) K/uL Immature Gran # (Auto) 0.02 (0.00-0.02) K/uL Sodium 139 (136-145) mmol/L Potassium 3.9 (3.5-5.1) mmol/L Chloride 106 (98-107) mmol/L Carbon Dioxide 25 (21-32) mmol/L Anion Gap 8 (3-11) BUN 19 (6-23) mg/dl Creatinine 0.91 (0.6-1.4) mg/dl Est Cr Clr Drug Dosing 73.5 ml/min Est GFR ( Amer) 95.9 ml/min Est GFR (Non-Af Amer) 82.7 ml/min BUN/Creatinine Ratio 20.9 H (10-20) Glucose 87 (70-99(Fasting)) mg/dl Calcium 9.1 (8.5-10.1) mg/dl PG Care Time/CCT Total # of Minutes Spent Total Time Spent with Patient: Total time spent is greater than 50% in coordination of care (as documented) at patient's floor/unit and/or counseling patient: Coding Level of Care Code 52911 Subseq Hosp Care Lvl 2 Diagnoses UTI (urinary tract infection) N39.0 Bacteremia R78.81 Dementia F03.90 Atrial fibrillation with RVR I48.91 BPH (benign prostatic hyperplasia) N40.0 CVA (cerebral vascular accident) I63.9 B12 deficiency E53.8
[2021-04-13 08:39] LABS: BUN Creatinine Ratio 20.9 (10-20); Calcium 9.1 mg/dl (8.5-10.1); Creatinine Clr Calc Pharmacy 73.5 ml/min; Est GFR (African American) 95.9 ml/min; Est GFR (Non-African American) 82.7 ml/min; Potassium 3.9 mmol/L (3.5-5.1)
[2021-04-13] MEDS: CYANOCOBALAMIN 1000 MCG/ML VIAL IM SCH (17:37)
[2021-04-13] MEDS: CHOLECALCIFEROL 1,000 UNITS 25 MCG TAB PO SCH (20:39)
[2021-04-13] MEDS: TAMSULOSIN HCL 0.4 MG CAP PO SCH (20:39)
[2021-04-14] MEDS: PIPERACILLIN/TAZOBACTAM 3.375 GM in DEXTROSE 5% 100 ML IV SCH ×3 (00:11→19:36)
--- NOTE | 2021-04-14 08:33 | Hospitalist Progress Note ---
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 Was having some coughing with drinking on one day but current CXR without infiltrate - swallowing has returned to baseline -- No acute issues with swallowing - WEB ENGINEER did see patient and discussed - no signs of aspiration -- reports she has to polo coach him a bit more to swallow and eat properly when he is tired which may explain the other day as he went for imaging ~[place] day of * Placed on Zosyn on admission and will need to complete IV treatment * Urine cx with pseudomonas/staph aureus Given pseudomonal infection may need to consider a 14 day antibiotic course regardless which would also give full bacteremia coverage if thought to be a true infection and not contaminant * Blood cultures 1 aerobic blood culture staph species, could be contaminant but given recurrent infections will repeat cultures/obtain ECHO (no vegetation but was a TTE) -- BCx with coag negative staph not lugdunesis so given 1 of 4 would suspect contaminant however given likely need for 14 days Abx would ultimately treat possible bacteremia Last day of treatment would be 04/15 after AM dose --> arranging for d/c/transport with on Sunday weather permitting. CM following and arranged transport. believes patient to be at his baseline self and looks GREAT. Happy with arm/ROM and eye after drops. Moving bowels, but chronic issues with constipation. --> ON colace BID, miralax. Takes dulcolax [place] for constipation at home and given mod-severe retention on imaging will order dose x 1 now. Also to give MOM as states this is also effective at home (2) Pulmonary nodule: Plan: BHAVIN mostly ground-glass pulm nodule 1.2cm x 0.7cm incidentally noted on prior CTA soft tissue of the neck in patient with reported prior granulomatous disease Had been followed by Dr Mobley in past but never had follow up imaging 2020--> likely as was transitioning to hospice/consideration and transportation difficult for family. --> increased in size 1mm/yr per prior CT chest 2018 Pulm consulted given gap in time and recs for imaging/surveillance, doubt /patient would want biopsy but something to consider moving forward w/ hospice in future if continued decline --> Pulm ordered CT chest without contrast to exactly look at the dimension if there is any other growth -- monitor (3) Bacteremia: Plan: * possible, given recurrent infections but still favor contaminant. No skin/soft tissue issues appreciated on exam * remains on Zosyn, to complete 14 day course for urinary source as above, which would also cover for blood, although 1/4 bottles and likely contaminent (4) Dementia: Plan: Chronic * Frequent orientation, avoid delirium inducing agents * Continue Memantine 10mg po BID * Continue Rivastigmine At baseline per family -- also has a history of CVA and significantly debilitated from previous stroke. Suspect some vascular dementia from prior CVA * --> Remains on ASA/Eliquis for 2nd prevention * reports he was told to hold ASA x 7 days as he had a nose bleed. Does have a bit of dried blood in R nare but no active nose bleeds. Could consider restarting ASA or continue on D/C --> RESUMING TOMORROW * No reflux symptoms reported, but could consider PPI therapy for GI prophylaxis given on chronic ASA/Eliquis for above -- will give pepcid IVP while inpatient, no issues reported. Hgb stable B12 checked as well (hx elevated homocysteine 2018 as well as MMA 345) --> start IM injections while inpatient for B12 244, low for age, and given dementia would replace and continue PO supplementation at discharge (discussed with at bedside 04/14) On eliquis for afib/DVT prevention, but consider placing on B6/folate replacement as well? (5) Atrial fibrillation with RVR: Plan: * Rate controlled; *Chronic Atrial Fibrillatin * Continue Apixaban 5mg po BID, diltiazem 180mg, metoprolol 25mg BID (6) BPH (benign prostatic hyperplasia): Plan: * Chronic, hx severe urinary retention * Continue Flomax * Bladder scan as needed -- has been voiding adequately with condom cath * UOP acceptable but has been having unmeasured voids * Continue to monitor (7) CVA (cerebral vascular accident): Plan: * Hx of such * no acute deficits above baseline Neck Stiffness: RESOLVED * On 04/05 patient noted to not really move neck. Would not complain of pain to me but reported he had pain. At baseline he does not always follow commands making further assessment difficult. He did have some prominence of the R sternocleidomastoid and slightly elevated shoulder on the R side. Able to passively move his head to the left and lifting forward; no signs of meningeal irritation * -- Review of outpatient records show paroxysmal twitching movements that are of unknown etiology. Suspect this could have been a torticollis, maybe spasmodic in origin given the chronic twitches. 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 R Hand/Elbow Pain: IMPROVING * Again he cannot give many details to assess. Seems to be tender on the top of the hand were a blood draw may have occurred and tenderness to elbow. Neither area is red, swollen, or warm to touch * On 04/10 he is able to actively move arm more and bend at elbow. 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 Continue ROM/elevation exercises (8) B12 deficiency: Plan: B12 checked as well (hx elevated homocysteine 2018 as well as MMA 345) --> start IM injections while inpatient for B12 244, low for age, and given dementia would replace and continue PO supplementation at discharge Also on Cipro eye drops for R eye for possible conjunctivitis --> continued improvement/almost resolved Complete treatment tomorrow Continue soap/gentle cleansing to remove debris Avoid rubbing the eye continue to monitor Plan: PT/OT consulted -- family does not want placed at all though. does have Kalia lift and able to care adequately for him at home. Remains inpatient on continued IV abx/monitoring of cultures; looking at 14 days total (04/15 after AM TOMORROW dose as started evening in ER on admission) Updated 04/14 Admission and Anticipated Discharge Date Admission Date: April 01, 2021 Supervising Physician Co-Signing Physician Notes Attending Attestation - Chart reviewed in detail, care plan d/w PA Katherin So. I agree w/ the jang components of her documentation. Jez Tucker MD Subjective patient evaluated this morning reported some abd discomfort overnight but did continue to have bowel movements. denied abdominal pain for me this morning. improvement in movement to RUE less eyrthema/puffiness to eye and no drainage/crusting.. denies any sensation of fever,chills, chest pain, shortness of breath, abd pain, nausea, dysuria at this time. No issues reported by day RN. Abx to be completed tomorrow. Updated at bedside this afternoon. Believes patient at his baseline self. Anticipating d/c tomorrow but monitoring weather. CM arranged transport but pending may need to wait until Sunday, but discussed if weather improved by afternoon will still plan for d/c tomorrow. Review of Systems Review of Systems: All systems reviewed & are unremarkable except as noted in HPI & below Physical Exam Physical Exam: The patient appeared well nourished and normally developed, no acute distress Head exam is normocephalic atraumatic , mmm Eyes: mild puffiness of R eye (MUCH DECREASED), MUCH less/almost no further erythema, no drainage noted, EOMI, non-tender Neck is without JVD, thyromegaly, or carotid bruits. Lungs CTAB, no w/c/r, on room air CV: irregularly irregular, no m/r/g, no edema, cap refill < 3 seconds GI: +BS, soft, nontender Extremities: nonedematous and both pedal pulses are present Neurologic: alert and follows some commands is hard of hearing and not very talkative, L sided hemianopsia from prior CVA, movement of neck without discomfort, able to flex/extend wrist/elbow today and has been moving more (per , at baseline) Skin is warm, dry, without appreciable lesions/wounds Psychologically alert, oriented to person, pleasantly confused at times, cooperative Results & Data Results & Data ([facility]) Vital Signs (Past 12 Hours) Vital Signs Temp Pulse Pulse Resp BP Pulse Ox 04/14/21 07:15 36.3 C L 85 16 136/92 95 04/13/21 23:55 36.9 C 84 18 130/74 99 04/13/21 20:35 88 153/78 H Laboratory Results 04/13/21 Range/Units 07:22 Sodium 139 (136-145) mmol/L Potassium 3.9 (3.5-5.1) mmol/L Chloride 106 (98-107) mmol/L Carbon Dioxide 25 (21-32) mmol/L Anion Gap 8 (3-11) BUN 19 (6-23) mg/dl Creatinine 0.91 (0.6-1.4) mg/dl Est Cr Clr Drug Dosing 73.5 ml/min Est GFR ( Amer) 95.9 ml/min Est GFR (Non-Af Amer) 82.7 ml/min BUN/Creatinine Ratio 20.9 H (10-20) Glucose 87 (70-99(Fasting)) mg/dl Calcium 9.1 (8.5-10.1) mg/dl Diagnostic Findings KUB X-Ray 04/14/21 08:49 KUB CLINICAL HISTORY: Generalized abdominal pain. FINDINGS: 2 AP supine abdominal radiographs are compared to study dated 05/17/2019 and correlated with abdominal CT dated 07/01/2020. There is a nonobstructed abdominal bowel gas pattern. No evidence of intraperitoneal free air is seen on these supine views. There is rectosigmoid fecal retention and moderate to severe constipation. No abnormal abdominal calcifications are identified. The skeletal structures are osteopenic and appear intact. There is moderate lumbosacral spondylosis. IMPRESSION: Rectosigmoid fecal retention and moderate to severe constipation. Electronically signed by: Emile Neal M.D. 04/14/2021 10:31 AM PG Care Time/CCT Total # of Minutes Spent Total Time Spent with Patient: Total time spent is greater than 50% in coordination of care (as documented) at patient's floor/unit and/or counseling patient: Coding Level of Care Code 62730 Subseq Hosp Care Lvl 3 Diagnoses UTI (urinary tract infection) N39.0 Bacteremia R78.81 Dementia F03.90 Atrial fibrillation with RVR I48.91 BPH (benign prostatic hyperplasia) N40.0 CVA (cerebral vascular accident) I63.9 B12 deficiency E53.8 Pulmonary nodule R91.1
[2021-04-14 10:14] LABS: Basophils # (auto) 0.06 K/uL (0-0.2); Basophils % (auto) 0.8 %; Eosinophils # (auto) 0.33 K/uL (0-0.5); Eosinophils % (auto) 4.6 %; Hematocrit (blood only) 43.9 % (42-52); Hemoglobin 14.1 g/dL (14.0-18.0); Immature Granulocytes # (auto) 0.01 K/uL (0.00-0.02); Immature Granulocytes % (auto) 0.1 %; Lymphocytes # (auto) 1.69 K/uL (1.2-3.4); Lymphocytes % (auto) 23.5 %; Mean Corpuscular Hemoglobin 30.7 pg (25-34); Mean Corpuscular Hgb Conc 32.1 g/dL (32-36); Mean Corpuscular Volume 95.6 fL (80-100); Mean Platelet Volume 10.4 fL (7.4-10.4); Monocytes # (auto) 0.32 K/uL (0.11-0.59); Monocytes % (auto) 4.5 %; Neutrophils # (auto) 4.77 K/uL (1.4-6.5); Neutrophils % (auto) 66.5 %; Platelet Count 280 K/uL (130-400); RDW Coefficient of Variation 14.3 % (11.5-14.5); RDW Standard Deviation 50.6 fL (36.4-46.3); Red Blood Count 4.59 M/uL (4.7-6.1); White Blood Count 7.18 K/uL (4.8-10.8)
--- NOTE | 2021-04-14 10:33 | XRay Report ---
KUB CLINICAL HISTORY: Generalized abdominal pain. FINDINGS: 2 AP supine abdominal radiographs are compared to study dated 05/17/2019 and correlated with abdominal CT dated 07/01/2020. There is a nonobstructed abdominal bowel gas pattern. No evidence of i ntraperitoneal free air is seen on these supine views. There is rectosigmoid fecal retention and mode rate to severe constipation. No abnormal abdominal calcifications are identified. The skeletal struct ures are osteopenic and appear intact. There is moderate lumbosacral spondylosis. IMPRESSION: Rectosigmoid fecal retention and moderate to severe constipation. Electronically signed by: Emile Neal M.D. 04/14/2021 10:31 AM
[2021-04-14 10:35] LABS: Albumin Globulin Ratio 0.9 (0.9-2); Albumin Level 3.6 gm/dl (3.4-5.0); BUN Creatinine Ratio 19.8 (10-20); Bilirubin,Total 0.5 mg/dl (0.2-1.0); Calcium 9.3 mg/dl (8.5-10.1); Creatinine Clr Calc Pharmacy 60.3 ml/min; Est GFR (African American) 75.4 ml/min; Est GFR (Non-African American) 65.1 ml/min; Globulin 3.9 gm/dl (2.5-4.0); Total Protein 7.5 gm/dl (6.0-8.3)
[2021-04-14] MEDS: CIPROFLOXACIN HCL 0.3% OP SOLN 2.5 ML BTL OPR SCH ×4 (10:50→19:37)
[2021-04-14] MEDS: DICLOFENAC SOD 1% GEL 100 GM TUBE EXT SCH ×4 (10:52→19:38)
[2021-04-14] MEDS: DOCUSATE SODIUM SYRUP 100 MG/10 ML UDC PO SCH ×2 (10:53→19:39)
[2021-04-14] MEDS: CYANOCOBALAMIN 1000 MCG/ML VIAL IM SCH (10:54)
[2021-04-14] MEDS: APIXABAN 5 MG TABLET PO SCH ×2 (10:59→19:38)
[2021-04-14] MEDS: MEMANTINE HCL 10 MG TAB PO SCH ×2 (11:00→19:39)
[2021-04-14] MEDS: METOPROLOL TARTRATE 25 MG TAB PO SCH ×2 (11:00→19:45)
[2021-04-14] MEDS: dilTIAZem HCL 180 MG CAPCR PO SCH (11:01)
[2021-04-14] MEDS: RIVASTIGMINE TARTRATE 1.5 MG CAP PO SCH (11:01)
[2021-04-14] MEDS: POLYETHYLENE (MIRALAX) 17 GM PACK PO SCH (11:02)
[2021-04-14] MEDS: ADVANCED PROBIOTIC 1250 MG CAPSULE PO SCH (11:02)
[2021-04-14] MEDS: FAMOTIDINE 20 MG in SYRINGE 3 ML IV SCH (11:31)
[2021-04-14] MEDS ORDERED: bisacodyL 10 MG SUPP PR STA (11:50)
[2021-04-14] MEDS ORDERED: MAGNESIUM HYDROXIDE SUSP 30 ML UDC PO ONE (16:05)
--- NOTE | 2021-04-14 16:14 | Pulmonary Consultation ---
Date of Consultation April 14, 2021 Assessment & Plan (1) Pulmonary nodule: CT neck personally reviewed: Left upper lobe mostly groundglass pulmonary nodule 1.2 cm x 0.7 cm I did look at the CAT scan of chest which was done 01/31/2019 which showed left upper lobe nodularity 1 cm x 0.5 cm --Left upper lobe pulmonary nodule 1.2cm x 0.7cm Seems to have increased in size 1mm/year compared to the CAT scan of the chest done 2018 and even 02/2016 where it measured 7.5mm Patient was following up with Dr. Mobley as an outpatient, he saw the patient last on 03/12/2019 Patient was supposed to have a CAT scan of the chest done in 2010 but he did not follow-up Plan: Order CT chest without contrast to exactly look at the dimension if there is any other growth Please note the above document was generated using voice recognition software. It may contain grammatical, syntax or spelling errors.Any formal questions or concerns about the content, text or information contained within the body of this dictation should be directly addressed to the provider for clarification. History of Present Illness Attending Physician: Jez Tucker History of Present Illness 75-year-old male presented to the hospital because of worsening myoclonic jerks, urine culture was positive for Pseudomonas that is the reason he was admitted to the hospital Patient had a CT neck done and pulmonary consulted for that At the time of examination patient denies any issues when it comes to his breathing He denies any chest pain, no cough, no hemoptysis No fever or chills Denies any headache, no blurry vision No diarrhea Good appetite. Please make note patient is a poor historian Social history: Patient is a lifetime non-smoker, denies any illicit drug use. Allergies Allergy/AdvReac Type Severity Reaction Status Date / Time isopropyl alcohol Allergy Severe RUBBING Verified 04/01/21 17:42 ALCOHOL - SHORTNESS OF BREATH adhesive Allergy Intermediate BLISTERS Verified 04/01/21 17:42 escitalopram Allergy Unknown UNSURE-DOES Verified 04/01/21 17:42 NOT KNOW oxycodone AdvReac Mild CONFUSION Verified 04/01/21 17:42 lisinopril AdvReac Unknown elevated Verified 04/01/21 17:42 creatinine Home Medications Medication Instructions Recorded Confirmed Type cholecalciferol (vitamin D3) 25 1,000 unit PO HS 02/13/18 04/01/21 History mcg (1,000 unit) capsule (Vitamin D3) coenzyme Q10 100 mg capsule 100 mg PO BID 02/13/18 04/01/21 History (CoQ-10) nitroglycerin 0.4 mg sublingual 0.4 mg SL Q5M PRN #25 tab 01/30/19 04/01/21 History tablet polyethylene glycol 3350 17 17 g PO QAM 06/04/20 04/01/21 History gram/dose oral powder (Miralax) acetaminophen 500 mg tablet 1,000 mg PO BID #120 tab 06/14/20 04/01/21 Rx (Tylenol Extra Strength) lidocaine 4 % topical patch 1 patch TOPICAL DAILY PRN 06/14/20 04/01/21 History (Aspercreme (lidocaine)) memantine 10 mg tablet (Namenda) 10 mg PO BID #180 tab 06/14/20 04/01/21 Rx disposable gloves (Disposable #1000 ea 07/21/20 12/31/20 Rx Latex-Free Gloves) aspirin 81 mg tablet,delayed 81 mg PO QAM #90 tab 09/08/20 04/01/21 Rx release (Aspirin Low Dose) diltiazem HCl 180 mg 180 mg PO QAM #30 cap 10/27/20 04/01/21 Rx capsule,extended release 24 hr tamsulosin 0.4 mg capsule (Flomax) 0.4 mg PO HS #90 cap 11/22/20 04/01/21 Rx metoprolol tartrate 25 mg tablet 25 mg PO BID #180 tab 12/15/20 04/01/21 Rx apixaban 5 mg tablet (Eliquis) 5 mg PO BID 12/28/20 04/01/21 History bisacodyl 10 mg rectal suppository 10 mg TX DAILY PRN 12/28/20 04/01/21 History (Dulcolax (bisacodyl)) docusate sodium 100 mg capsule 100 mg PO BID 12/28/20 04/01/21 History (Colace) rivastigmine tartrate 3 mg capsule 3 mg PO QAM cap 12/31/20 04/01/21 History ciprofloxacin HCl 500 mg tablet 500 mg PO BID #14 tab 03/30/21 04/01/21 Rx (Cipro) cyanocobalamin (vitamin B-12) 1,000 mcg PO DAILY #30 cap 04/15/21 Rx 1,000 mcg capsule Patient History Medical History Acute hypotension Acute kidney injury Acute urinary retention Atrial fibrillation with RVR CAD (coronary artery disease) CAD (coronary artery disease) CHF (congestive heart failure) Closed fracture of radial head Constipation CVA (cerebral vascular accident) Gastroesophageal reflux disease Hyperlipidemia Hypertension Ileus Nephrolithiasis BARBARA (obstructive sleep apnea) Small bowel obstruction Symptomatic bradycardia Urinary retention Surgical History History of knee replacement History of PTCA Family History Father Stroke Mother Myocardial infarction Aunt Diabetes Family/Other Heart disease Hypertension Nephrolithiasis Other Dementia Denies family history of Prostate cancer Social History Smoking Status: Never smoker Second Hand Exposure: No; Hx Alcohol Use: No Hx Substance Use: No Preferred Language: Peruvian Communication Ability: Effective Communication Ability Comment: dementia/CVA Visual Impairment: Limited Hearing Ability: Normal Alarm Signaler Required: No Beliefs That Will Affect Care: None marital status: Current Living Situation: Spouse current occupational status: retired How many Children do You have: 1 Feels Safe at Home: Yes Safety Concerns: Feels Safe At This Time Childhood Exposure to Second-Hand Smoke: Yes caffeine: No Physical Activity Frequency: Does not Exercise Seatbelt Use: always Sunscreen Use: No (not in the sun) Assistive Devices: None Review of Systems Review of Systems: All systems reviewed & are unremarkable except as noted in HPI & below Physical Exam Physical Exam: Constitutional: No acute distress HEENT: EOMI, PERRLA Respiratory system: Decreased air entry bilaterally, no wheeze, no rhonchi, mild crackles bilaterally CVS: S1-S2 positive, no murmurs or gallops Abdomen: Soft, nontender, nondistended, positive bowel sounds x4 Extremities: +2 pulses bilaterally radialis/ dorsalis pedis, no cyanosis, no edema Neuro: Awake alert oriented x3 Psych: Normal mood and affect G/U: No Crews Skin: no rashes, warm and dry Lymphatic: no cervical or axillary lymphadenopathy Results & Data Results & Data ([facility]) Vital Signs (Past 12 Hours) Vital Signs Temp Pulse Pulse Resp BP Pulse Ox 04/14/21 15:14 37 C 79 16 123/78 96 04/14/21 07:15 36.3 C L 85 16 136/92 95 Laboratory Results 04/14/21 09:04 04/14/21 09:04 PG Care Time/CCT Total # of Minutes Spent Total Time Spent with Patient: Total time spent is greater than 50% in coordination of care (as documented) at patient's floor/unit and/or counseling patient: [place] [address] Initial Inpt Care Lvl 3 Patient Type New Diagnoses Pulmonary nodule R91.1
--- NOTE | 2021-04-14 17:38 | CT Scan Report ---
CT chest diagnostic wo con CT DOSE: 794.66 mGy.cm CLINICAL HISTORY: 75 years-old Male with BHAVIN nodule. Follow-up study in a patient with reported pulm onary nodule TECHNIQUE: Multiaxial CT images of the chest were performed without contrast. A dose lowering techni que was utilized adhering to the principles of ALARA. COMPARISON: CT soft tissue neck 04/05/2021, chest CT 01/31/2019 FINDINGS: No thyroid nodule. No lymphadenopathy. Calcified hilar and mediastinal lymph nodes. Moderat e cardiomegaly with extensive coronary artery calcifications. No thoracic aortic aneurysm. Dilated ma in pulmonary artery suggests pulmonary artery hypertension. Trace right pleural effusion. Mild bilateral bronchial wall thickening. Mild linear subsegmental atel ectasis/scarring of the basal left lower lobe. There are a few scattered calcified bilateral pulmonar y granulomata again noted. Study is limited secondary to respiratory motion and upper extremity posit ioning. Irregular subsolid nodule of the left lung apex measuring 1.2 x 0.8 x 1.5 cm previously measu red 1.0 x 0.5 x 1.2 cm. Solid nodular component measures 5 mm. No acute process of the imaged upper abdomen. Gynecomastia. Degenerative changes of the spine and taylor ulders. IMPRESSION: 1. No acute intrathoracic abnormality. 2. Suspicious 1.2 x 0.8 x 1.5 cm subsolid nodule of the apical posterior segment left upper lobe has increased in size from the comparison 01/31/2019 study. A slow-growing adenomatous lesion is the diag nosis of exclusion. Follow-up is needed. 3. Prior granulomatous disease. 4. Cardiomegaly with suggested pulmonary artery hypertension. ACT 112: Negative or not required by law. Electronically signed by: Malick Vital M.D. 04/14/2021 5:37 PM
[2021-04-14] MEDS: CHOLECALCIFEROL 1,000 UNITS 25 MCG TAB PO SCH (19:38)
[2021-04-14] MEDS: TAMSULOSIN HCL 0.4 MG CAP PO SCH (19:40)
[2021-04-15] MEDS: PIPERACILLIN/TAZOBACTAM 3.375 GM in DEXTROSE 5% 100 ML IV SCH (02:21)
[2021-04-15] MEDS: CIPROFLOXACIN HCL 0.3% OP SOLN 2.5 ML BTL OPR SCH (07:32)
[2021-04-15] MEDS: FAMOTIDINE 20 MG in SYRINGE 3 ML IV SCH (07:33)
[2021-04-15] MEDS: CYANOCOBALAMIN 1000 MCG/ML VIAL IM SCH (07:38)
[2021-04-15] MEDS: DICLOFENAC SOD 1% GEL 100 GM TUBE EXT SCH ×3 (07:39→17:35)
--- NOTE | 2021-04-15 08:15 | Hospitalist Progress Note ---
Date of Service April 15, 2021 Assessment & Plan (1) UTI (urinary tract infection): Plan: - Sent to hospital for pre-hospital UA/Cs with pseudomonas resistant to FLQ, also with staph aureus * Recurrent urine cx with staph species in past, had been frequently treated with Bactrim [employer] per review of notes * Afebrile (a couple low grade at 100 and will monitor - nothing for > 48 hrs..one reading at 99), HD stable, nontoxic in appearance, WBC WNL -- Monitor for addition source? 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 a bit more to swallow and eat properly when he is tired which may explain the other day as he went for imaging ~[place] day of * Placed on Zosyn on admission and will need to complete IV treatment * Urine cx with pseudomonas/staph aureus Given pseudomonal infection may need to consider a 14 day antibiotic course regardless which would also give full bacteremia coverage if thought to be a true infection and not contaminant * Blood cultures 1 aerobic blood culture staph species, could be contaminant but given recurrent infections will repeat cultures/obtain ECHO (no vegetation but was a TTE) -- BCx with coag negative staph not lugdunesis so given 1 of 4 would suspect contaminant however given likely need for 14 days Abx would ultimately treat possible bacteremia Last day of treatment would be 04/15 after AM dose --> arranging for d/c/transport with on Sunday weather permitting. CM following and arranged transport. believes patient to be at his baseline self and looks GREAT. Happy with arm/ROM and eye after drops. Moving bowels, but chronic issues with constipation. --> ON colace BID, miralax. Takes dulcolax [place] for constipation at home and given mod-severe retention on imaging will order dose x 1 now. Also to give MOM as states this is also effective at home (2) Pulmonary nodule: Plan: BHAVIN mostly ground-glass pulm nodule 1.2cm x 0.7cm incidentally noted on prior CTA soft tissue of the neck in patient with reported prior granulomatous disease Had been followed by Dr Mobley in past but never had follow up imaging 2020--> likely as was transitioning to hospice/consideration and transportation difficult for family. --> increased in size 1mm/yr per prior CT chest 2018 Pulm consulted given gap in time and recs for imaging/surveillance, doubt /patient would want biopsy but something to consider moving forward w/ hospice in future if continued decline --> Pulm ordered CT chest without contrast to exactly look at the dimension if there is any other growth -- monitor (3) Bacteremia: Plan: * possible, given recurrent infections but still favor contaminant. No skin/soft tissue issues appreciated on exam * remains on Zosyn, to complete 14 day course for urinary source as above, which would also cover for blood, although 1/4 bottles and likely contaminent (4) Dementia: Plan: Chronic * Frequent orientation, avoid delirium inducing agents * Continue Memantine 10mg po BID * Continue Rivastigmine At baseline per family -- also has a history of CVA and significantly debilitated from previous stroke. Suspect some vascular dementia from prior CVA * --> Remains on ASA/Eliquis for 2nd prevention * reports he was told to hold ASA x 7 days as he had a nose bleed. Does have a bit of dried blood in R nare but no active nose bleeds. Could consider restarting ASA or continue on D/C --> RESUMING TOMORROW * No reflux symptoms reported, but could consider PPI therapy for GI prophylaxis given on chronic ASA/Eliquis for above -- will give pepcid IVP while inpatient, no issues reported. Hgb stable B12 checked as well (hx elevated homocysteine 2018 as well as MMA 345) --> start IM injections while inpatient for B12 244, low for age, and given dementia would replace and continue PO supplementation at discharge (discussed with at bedside 04/14) On eliquis for afib/DVT prevention, but consider placing on B6/folate replacement as well? (5) Atrial fibrillation with RVR: Plan: * Rate controlled; *Chronic Atrial Fibrillatin * Continue Apixaban 5mg po BID, diltiazem 180mg, metoprolol 25mg BID (6) BPH (benign prostatic hyperplasia): Plan: * Chronic, hx severe urinary retention * Continue Flomax * Bladder scan as needed -- has been voiding adequately with condom cath * UOP acceptable but has been having unmeasured voids * Continue to monitor (7) CVA (cerebral vascular accident): Plan: * Hx of such * no acute deficits above baseline Neck Stiffness: RESOLVED * On 04/05 patient noted to not really move neck. Would not complain of pain to me but reported he had pain. At baseline he does not always follow commands making further assessment difficult. He did have some prominence of the R sternocleidomastoid and slightly elevated shoulder on the R side. Able to passively move his head to the left and lifting forward; no signs of meningeal irritation * -- Review of outpatient records show paroxysmal twitching movements that are of unknown etiology. Suspect this could have been a torticollis, maybe spasmodic in origin given the chronic twitches. Gave Methocarbamol to help muscles as this will have less [employer] effects -- seems to have helped * He does have chronic L sided deficits from his previous CVAs and family does report he can lean to the right a lot so possibly contributing to some muscle component? R Hand/Elbow Pain: IMPROVING * Again he cannot give many details to assess. Seems to be tender on the top of the hand were a blood draw may have occurred and tenderness to elbow. Neither area is red, swollen, or warm to touch * On 04/10 he is able to actively move arm more and bend at elbow. 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 Continue ROM/elevation exercises (8) B12 deficiency: Plan: B12 checked as well (hx elevated homocysteine 2018 as well as MMA 345) --> start IM injections while inpatient for B12 244, low for age, and given dementia would replace and continue PO supplementation at discharge Also on Cipro eye drops for R eye for possible conjunctivitis --> continued improvement/almost resolved Complete treatment tomorrow Continue soap/gentle cleansing to remove debris Avoid rubbing the eye continue to monitor Plan: PT/OT consulted -- family does not want placed at all though. does have Kalia lift and able to care adequately for him at home. Remains inpatient on continued IV abx/monitoring of cultures; looking at 14 days total (04/15 after AM TOMORROW dose as started evening in ER on admission) Updated 04/14 Admission and Anticipated Discharge Date Admission Date: April 01, 2021 Results & Data Results & Data ([facility]) Vital Signs (Past 12 Hours) Vital Signs Temp Pulse Resp BP Pulse Ox 04/15/21 07:56 36.4 C L 75 20 130/80 98 Laboratory Results 04/14/21 04/14/21 04/14/21 Range/Units 09:04 09:04 09:04 WBC 7.18 (4.8-10.8) K/uL RBC 4.59 L (4.7-6.1) M/uL Hgb 14.1 (14.0-18.0) g/dL Hct 43.9 (42-52) % MCV 95.6 (80-100) fL MCH 30.7 (25-34) pg MCHC 32.1 (32-36) g/dL RDW Std Deviation 50.6 H (36.4-46.3) fL RDW Coeff of Alex 14.3 (11.5-14.5) % Plt Count 280 (130-400) K/uL MPV 10.4 (7.4-10.4) fL Immature Gran % (Auto) 0.1 % Neut % (Auto) 66.5 % Lymph % (Auto) 23.5 % Roberts % (Auto) 4.5 % Eos % (Auto) 4.6 % Baso % (Auto) 0.8 % Neut # (Auto) 4.77 (1.4-6.5) K/uL Lymph # (Auto) 1.69 (1.2-3.4) K/uL Roberts # (Auto) 0.32 (0.11-0.59) K/uL Eos # (Auto) 0.33 (0-0.5) K/uL Baso # (Auto) 0.06 (0-0.2) K/uL Immature Gran # (Auto) 0.01 (0.00-0.02) K/uL Sodium 139 (136-145) mmol/L Potassium 4.0 (3.5-5.1) mmol/L Chloride 104 (98-107) mmol/L Carbon Dioxide 25 (21-32) mmol/L Anion Gap 10 (3-11) BUN 22 (6-23) mg/dl Creatinine 1.11 (0.6-1.4) mg/dl Est Cr Clr Drug Dosing 60.3 ml/min Est GFR ( Amer) 75.4 ml/min Est GFR (Non-Af Amer) 65.1 ml/min BUN/Creatinine Ratio 19.8 (10-20) Glucose 129 H (70-99(Fasting)) mg/dl Calcium 9.3 (8.5-10.1) mg/dl Total Bilirubin 0.5 (0.2-1.0) mg/dl AST 11 L (13-39) U/L ALT 8 (7-52) U/L Alkaline Phosphatase 95 (34-104) U/L Total Protein 7.5 (6.0-8.3) gm/dl Albumin 3.6 (3.4-5.0) gm/dl Globulin 3.9 (2.5-4.0) gm/dl Albumin/Globulin Ratio 0.9 (0.9-2) TSH 3.609 (0.300-4.500) uIu/ml PG Care Time/CCT Total # of Minutes Spent Total Time Spent with Patient: Total time spent is greater than 50% in coordination of care (as documented) at patient's floor/unit and/or counseling patient: Coding Diagnoses UTI (urinary tract infection) N39.0 Pulmonary nodule R91.1 Bacteremia R78.81 Dementia F03.90 Atrial fibrillation with RVR I48.91 BPH (benign prostatic hyperplasia) N40.0 CVA (cerebral vascular accident) I63.9 B12 deficiency E53.8
[2021-04-15] MEDS ORDERED: ASPIRIN 81 MG ECTAB PO SCH (09:00)
[2021-04-15] MEDS: dilTIAZem HCL 180 MG CAPCR PO SCH (09:46)
[2021-04-15] MEDS: DOCUSATE SODIUM SYRUP 100 MG/10 ML UDC PO SCH (09:46)
[2021-04-15] MEDS: MEMANTINE HCL 10 MG TAB PO SCH (09:46)
[2021-04-15] MEDS: APIXABAN 5 MG TABLET PO SCH (09:46)
[2021-04-15] MEDS: POLYETHYLENE (MIRALAX) 17 GM PACK PO SCH (09:46)
[2021-04-15] MEDS: ADVANCED PROBIOTIC 1250 MG CAPSULE PO SCH (09:46)
[2021-04-15] MEDS: RIVASTIGMINE TARTRATE 1.5 MG CAP PO SCH (09:46)
[2021-04-15] MEDS: METOPROLOL TARTRATE 25 MG TAB PO SCH (09:46)
--- NOTE | 2021-04-15 10:02 | Discharge Summary ---
Date of Service April 15, 2021 Admission HPI Per Admitting Provider Ricardo Krishnan is a 75yo male with history of CVA with debility - bedbound, unable to walk - patient with dementia. Presents with worsening myoclonic jerking, concern for UTI. Urine culture from PCP POSITIVE for Pseudomonas Patient with no additional complaints. with no concerns. Admission Exam Per Admitting Provider General: patient resting comfortably, NAD, non-toxic in appearance, AA&O to self and location Skin: warm, dry, intact, no rashes or lesions HEENT: NC/AT, PERRL, EOMI, anicteric sclera, conjunctiva without injection, external ear normal to inspection and nontender, nares patent, moist mucus membranes, dentition intact, no oropharyngeal lesions, neck supple, trachea midline, no LAD, no thyromegaly, no JVD Heart: +S1/S2, regular, no m/r/g Lungs: equal air entry bilaterally, no rales/rhonchi/wheezes Abd: +BS, soft, NT/ND, no masses/organomegaly/ascites Ext: warm, 2+ pulses in UE/LE bilaterally, no clubbing/cyanosis or edema Neuro:unable to move legs or LUE Principal Diagnosis UTI Discharge Exam The patient appeared well nourished and normally developed, no acute distress Head exam is normocephalic atraumatic , mmm Eyes: improvement of erythema/puffiness to R eye, no drainage, EOMI intact, non-tender Neck- no JVD/carotid bruit Lungs CTAB, diminished in bases, no w/c/r, on room air CV: irregularly irregular (rate controlled), no m/r/g, no edema, cap refill < 3 seconds GI: +BS, soft, nontender Extremities: nonedematous and both pedal pulses are present Neurologic: alert and follows some commands is hard of hearing and not very talkative, L sided hemianopsia from prior CVA, movement of neck without discomfort, able to flex/extend wrist/elbow today and has been moving more (per , at baseline) Skin is warm, dry, without appreciable lesions/wounds Psychologically alert, oriented to person, pleasantly confused at times, cooperative Discharge Data Allergies Allergy/AdvReac Type Severity Reaction Status Date / Time isopropyl alcohol Allergy Severe RUBBING Verified 04/01/21 17:42 ALCOHOL - SHORTNESS OF BREATH adhesive Allergy Intermediate BLISTERS Verified 04/01/21 17:42 escitalopram Allergy Unknown UNSURE-DOES Verified 04/01/21 17:42 NOT KNOW oxycodone AdvReac Mild CONFUSION Verified 04/01/21 17:42 lisinopril AdvReac Unknown elevated Verified 04/01/21 17:42 creatinine Consultations 04/01/21 19:37 ED Decision to Admit Stat 04/14/21 08:51 Consult Pulmonology Routine Ordered Studies Chest X-Ray 04/01/21 17:04 XR chest 1V portable CLINICAL HISTORY: confusion TECHNIQUE: Single frontal radiograph of the chest was obtained. Comparison: Comparison is made to chest one view 12/28/2020 FINDINGS: No lines and tubes are seen. Cardiomegaly is noted. The lungs are clear. No evidence of pleural effusion or pneumothorax. IMPRESSION: No acute chest disease. Cardiomegaly is noted.. ACT 112: Negative or not required by law. Electronically signed by: Kye Healy M.D. 04/01/2021 5:29 PM Chest X-Ray 04/01/21 22:11 XR chest 1V portable CLINICAL HISTORY: SOB TECHNIQUE: Single frontal radiograph of the chest was obtained. Comparison: None available at the time of this dictation. FINDINGS: No lines and tubes are seen. Cardiomegaly is noted. The lungs are clear. No evidence of pleural effusion or pneumothorax. IMPRESSION: No acute chest disease. ACT 112: Negative or not required by law. 04/03/2021 ECHOCARDIOGRAM -- LV systolic function normal (EF 55-60%), mild concentric LVH. LA mildly dilated. Mild MR. Electronically signed by: Kye Healy M.D. 04/01/2021 10:[address] 04/05/21 16:34 CT head/brain wo con CLINICAL HISTORY: Change in Mentation COMPARISON STUDY: 12/28/2020 CT DOSE: TECHNIQUE: Standard CT of the Brain was performed without IV contrast. A dose lowering technique was utilized adhering to the principles of ALARA. FINDINGS: Extraaxial space: There is no evidence for subdural hematoma. There are no extra-axial fluid collections. Ventricles and cisterns: The ventricles are again moderately to markedly enlarged bilaterally. There is no evidence for midline shift or mass effect. Parenchyma: There is no subarachnoid or intraparenchymal hemorrhage. There is no evidence for an acute infarct or cerebral edema. There is mild cerebral cortical atrophy and decreased attenuation in the periventricular white matter representing remote small vessel disease. There are no gross mass lesions. Osseous structures: There is no evidence for an acute fracture. The visualized paranasal sinuses are clear. The mastoid air cells are clear bilaterally. Soft tissues: There is no evidence for focal soft tissue swelling. IMPRESSION: 1. No acute intracranial pathology. 2. Moderate to marked ventricular dilatation is again seen bilaterally. 3. Cerebral cortical atrophy and marked remote small vessel disease, right greater than left are again seen. ACT 112: Negative or not required by law. Electronically signed by: Benoit López M.D. 04/05/2021 11:00 PM Soft Tissue Neck CT 04/05/21 16:39 CT soft tissue neck wo con HISTORY: 75 years-old Male Decreased mobility/stiffness acute neck pain COMPARISON: Head CT of same day, CTA neck 12/28/2020, chest CT 01/31/2019 TECHNIQUE: Multiple axial CT images of the soft tissues of the neck were obtained without the use of IV contrast. A dose lowering technique was used consistent with the principals of SAM. FINDINGS: Partially imaged chronic dilation of the ventricles with white matter hypodensities. Streak artifact from dental amalgam hardware. Unremarkable orbits. The nasopharynx, oral pharynx and hypopharynx appear patent. There are a few benign-appearing calcifications noted within the epiglottis. The glottis and subglottic airway appears normal. Subcentimeter left-sided thyroid nodule. The thyroid appears mildly atrophic. There are a few calcified mediastinal and hilar lymph nodes suggestive of prior granulomatous disease. No pathologically enlarged lymph nodes are identified. Mild calcified plaque of the carotid bulbs. Atrophic submandibular glands. Scattered pulmonary calcified granulomata. No pneumothorax. There is irregular 1.2 x 0.8 x 1.5 cm groundglass nodule involving the apical posterior segment of the left upper lobe, previously measuring 1.0 x 0.5 x 1.2 cm. No acute fracture. Degenerative changes of the shoulders and spine. No suspicious bone lesion identified. 8 mm vertebral body hemangioma of the C5 vertebral body. IMPRESSION: 1. No acute abnormality identified involving the soft tissues of the neck. 2. No adenopathy. 3. Suspicious 1.2 x 0.8 x 1.5 cm groundglass nodule of the apical posterior segment left upper lobe has increased in size from the comparison 01/31/2019 study. An adenomatous lesion is the diagnosis of exclusion. Pulmonary consultation follow-up recommended. 4. Prior granulomatous disease. ACT 112: Negative or not required by law. The above report was generated using voice recognition software. It may contain grammatical, syntax or spelling errors. Electronically signed by: Malick Vital M.D. 04/06/2021 8:49 AM Chest X-Ray 04/06/21 12:33 XR chest 1V portable CLINICAL HISTORY: Aspiration event. Evaluate for pneumonia COMPARISON STUDY: 04/01/2021 TECHNIQUE: 1 view of the chest FINDINGS: Single frontal view of the chest demonstrates the heart size to be mildly enlarged. There is a decreased inspiratory effort with elevation of the hemidiaphragms and crowding of the bronchovascular markings at the lung bases and centrally. The lungs are clear of alveolar opacities. There is no evidence for pleural effusion. There is no evidence for vascular congestion. There is no acute osseous pathology. IMPRESSION: 1. There is a decreased inspiratory effort with otherwise no acute chest disease. ACT 112: Negative or not required by law. Electronically signed by: Benoit López M.D. 04/06/2021 1:37 PM Elbow X-Ray 04/08/21 08:00 XR elbow RT 2V CLINICAL HISTORY: Elbow pain. COMPARISON STUDY: No previous studies for comparison. TECHNIQUE: 3 right elbow views FINDINGS: This is a limited examination as the patient could not fully extend his arm. Bones: There is no evidence for an acute fracture or dislocation. There is no lytic or blastic lesion. Joints: There is evidence for mild narrowing of the elbow joint spaces. There is no evidence for an intra-articular effusion or elevation of the fat pads. The bones are in anatomic alignment. Soft tissues: There is no focal soft tissue abnormality. There is no radiopaque foreign body. IMPRESSION: 1. No acute osseous pathology. This study is limited as patient could not completely extend his arm for proper imaging. ACT 112: Negative or not required by law. Electronically signed by: Bneoit López M.D. 04/08/2021 11:09 AM Wrist X-Ray 04/08/21 08:00 XR wrist RT 2V CLINICAL HISTORY: Wrist Pain TECHNIQUE: 2 views of the right wrist were obtained. Comparison: None available at the time of this dictation. FINDINGS: There is no evidence of an acute fracture. The alignment is anatomic. Mild degenerative narrowing is seen of the radiocarpal articulation. Vascular calcifications are seen. IMPRESSION: No evidence of acute osseous injury. ACT 112: Negative or not required by law. Electronically signed by: Kye Healy M.D. 04/08/2021 11:57 AM Chest X-Ray 04/12/21 05:59 XR chest 1V portable CLINICAL HISTORY: Fever, uti,? Atelectasis COMPARISON STUDY: Chest radiograph April 06, 2021. FINDINGS: No pneumothorax or pleural effusion is noted. Cardiomegaly is unchanged. No evidence for pulmonary edema. No consolidation is identified to suggest pneumonia. Mediastinal contours are stable. IMPRESSION: No acute cardiopulmonary findings. ACT 112: Negative or not required by law. Electronically signed by: Tahir Sullivan M.D. 04/12/2021 7:15 AM KUB X-Ray 04/14/21 08:49 KUB CLINICAL HISTORY: Generalized abdominal pain. FINDINGS: 2 AP supine abdominal radiographs are compared to study dated 05/17/2019 and correlated with abdominal CT dated 07/01/2020. There is a nonobstructed abdominal bowel gas pattern. No evidence of intraperitoneal free air is seen on these supine views. There is rectosigmoid fecal retention and moderate to severe constipation. No abnormal abdominal calcifications are i dentified. The skeletal structures are osteopenic and appear intact. There is moderate lumbosacral spondylosis. IMPRESSION: Rectosigmoid fecal retention and moderate to severe constipation. Electronically signed by: Emile Neal M.D. 04/14/2021 10:[address] 04/14/21 16:11 CT chest diagnostic wo con CT DOSE: 794.66 mGy.cm CLINICAL HISTORY: 75 years-old Male with BHAVIN nodule. Follow-up study in a patient with reported pulmonary nodule TECHNIQUE: Multiaxial CT images of the chest were performed without contrast. A dose lowering technique was utilized adhering to the principles of ALARA. COMPARISON: CT soft tissue neck 04/05/2021, chest CT 01/31/2019 FINDINGS: No thyroid nodule. No lymphadenopathy. Calcified hilar and mediastinal lymph nodes. Moderate cardiomegaly with extensive coronary artery calcifications. No thoracic aortic aneurysm. Dilated main pulmonary artery suggests pulmonary artery hypertension. Trace right pleural effusion. Mild bilateral bronchial wall thickening. Mild linear subsegmental atelectasis/scarring of the basal left lower lobe. There are a few scattered calcified bilateral pulmonary granulomata again noted. Study is limited secondary to respiratory motion and upper extremity positioning. Irregular subsolid nodule of the left lung apex measuring 1.2 x 0.8 x 1.5 cm previously measured 1.0 x 0.5 x 1.2 cm. Solid nodular component measures 5 mm. No acute process of the imaged upper abdomen. Gynecomastia. Degenerative changes of the spine and shoulders. IMPRESSION: 1. No acute intrathoracic abnormality. 2. Suspicious 1.2 x 0.8 x 1.5 cm subsolid nodule of the apical posterior segment left upper lobe has increased in size from the comparison 01/31/2019 study. A slow-growing adenomatous lesion is the diagnosis of exclusion. Follow-up is needed. 3. Prior granulomatous disease. 4. Cardiomegaly with suggested pulmonary artery hypertension. ACT 112: Negative or not required by law. Electronically signed by: Malick Vital M.D. 04/14/2021 5:37 PM Hospital Course (1) UTI (urinary tract infection): - Sent to hospital for pre-hospital UA/Cs with pseudomonas resistant to FLQ, also with staph aureus * Recurrent urine cx with staph species in past, had been frequently treated with Bactrim [employer]ESSOR [employer]ATRE per review of notes * Afebrile (a couple low grade at 100 and will monitor - nothing for > 48 hrs..one reading at 99), HD stable, nontoxic in appearance, WBC WNL -- Monitor for addition source? Was having some coughing with drinking on one day but current CXR without infiltrate - swallowing has returned to baseline -- No acute issues with swallowing - [employer] did see patient and discussed - no signs of aspiration -- reports she has to professional athletes coach him a bit more to swallow and eat properly when he is tired which may explain the other day as he went for imaging ~[place] day of * Placed on Zosyn on admission * Urine cx with pseudomonas/staph aureus Given pseudomonal infection may need to consider a 14 day antibiotic course regardless which would also give full bacteremia coverage if thought to be a true infection and not contaminant * Blood cultures 1 aerobic blood culture staph species, could be contaminant but given recurrent infections will repeat cultures/obtain ECHO (no vegetation but was a TTE) -- BCx with coag negative staph not lugdunesis so given 1 of 4 would suspect contaminant however given likely need for 14 days Abx would ultimately treat possible bacteremia Last day of treatment would be 04/15 after AM dose --> CM arranging for d/c/transport this evening believes patient to be at his baseline self and looks GREAT. Happy with a rm/ROM and eye after drops. Moving bowels, but chronic issues with constipation. --> ON colace BID, miralax. Takes dulcolax OR for constipation at home and given mod-severe retention on imaging will order dose x 1 now. Also to give MOM as states this is also effective at home +BM x 2 on 04/14 (2) Pulmonary nodule: BHAVIN mostly ground-glass pulm nodule 1.2cm x 0.7cm incidentally noted on prior CTA soft tissue of the neck in patient with reported prior granulomatous disease Had been followed by Dr Mobley in past but never had follow up imaging 2020--> likely as was transitioning to hospice/consideration and transportation difficult for family. 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 Gracia updated of finding/monitoring prior to discharge (3) Bacteremia: * possible, given recurrent infections but still favor contaminant. No skin/soft tissue issues appreciated on exam * Zosyn-- 14 day course for urinary source as above, which would also cover for blood, although 1/4 bottles and likely contaminent (4) Dementia: Chronic * Frequent orientation, avoid delirium inducing agents * Continued Memantine 10mg po BID * Continued Rivastigmine At baseline per family, confirmed with 04/14 at bedside -- also has a history of CVA and significantly debilitated from previous stroke. Suspect some vascular dementia from prior CVA * --> Remains on ASA/Eliquis for 2nd prevention * reports he was told to hold ASA x 7 days as he had a nose bleed. Does have a bit of dried blood in R nare but no active nose bleeds. Could consider restarting ASA or continue on D/C --> resumed at discharge No reflux symptoms reported, but could consider PPI therapy for GI prophylaxis given on chronic ASA/Eliquis for above -- given pepcid while inpatient but if issues outpatient would rec continuing such B12 checked as well (hx elevated homocysteine 2019 as well as MMA 345) --> started IM injections while inpatient for B12 244, low for age, and given dementia continued PO at discharge, discussed and relayed to as well (5) Atrial fibrillation with RVR: * Rate controlled; *Chronic Atrial Fibrillatin * Continued Apixaban 5mg po BID, diltiazem 180mg, metoprolol 25mg BID (6) BPH (benign prostatic hyperplasia): * Chronic, hx severe urinary retention * Continued Flomax * Bladder scan as needed -- has been voiding adequately with condom cath * UOP acceptable but has been having unmeasured voids (7) CVA (cerebral vascular accident): * Hx of such * no acute deficits above baseline Neck Stiffness: RESOLVED * On 04/05 patient noted to not really move neck. Would not complain of pain to me but reported he had pain. At baseline he does not always follow commands making further assessment difficult. He did have some prominence of the R sternocleidomastoid and slightly elevated shoulder on the R side. Able to passively move his head to the left and lifting forward; no signs of meningeal irritation * -- Review of outpatient records show paroxysmal twitching movements that are of unknown etiology. Suspect this could have been a torticollis, maybe spasmodic in origin given the chronic twitches. Gave Methocarbamol to help muscles as this will have less PRODUCTION AIDE effects -- seems to have helped * He does have chronic L sided deficits from his previous CVAs and family does report he can lean to the right a lot so possibly contributing to some muscle component? R Hand/Elbow Pain: IMPROVING * Again he cannot give many details to assess. Seems to be tender on the top of the hand were a blood draw may have occurred and tenderness to elbow. Neither area is red, swollen, or warm to touch * On 04/10 he is able to actively move arm more and bend at elbow. 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 Avoid rubbing I certify that this patient is under my care and that I, or a physicians assistant coach working with me, had a face to-face encounter that meets the home health qudi-un-savl encounter requirements with this patient. The encounter with the patient was in whole, or in part, for the following medical condition, which is the primary reason for home health care (list medical condition): UTI pseudamonas I certify that, based on my findings, the following services are medically necessary home health services: My clinical findings support the need for the above services because: OT Assess ADL Status and Restore Function w ADLs PT Assessment for Endurance / Balance / Strength PT Eval for Safety and Mobility PT Eval for Safety, Gait Training, Assistive Devices PT Gait and Balance Training, Strengthening and Safety Skilled Nsg Assessment Further, I certify that my clinical findings support that this patient is homebound (i.e. absences from home require considerable and taxing effort and are for medical reasons or voodoo services or infrequently or of short duration when for other reasons) because: Maximum Assistance with All Activities Certification for Home Health Services: Based on the above findings, I certify that this patient is confined to the home and needs intermittent prison care, physical therapy and/or speech therapy or continues to need occupational therapy. The patient is under my care, and I have initiated the establishment of the plan of care. This patient will be followed by a physician who will periodically review the plan of care. PT/OT consulted -- family does not want placed at all though. does have Kalia lift and able to care adequately for him at home. arranged for transportation home (to bring lift pad brought in from home) this evening. Total Time Total Time Spent Total Time Spent (In Minutes): 45 Discharge Plan Discharge Items Patient Disposition: Home - Home Health Services Reason For Visit: UTI, PSEUDOMONAS Discharge Diagnosis: UTI Goals: You have been hospitalized for an acute medical problem. During your stay at [facility], we have made an effort to correct the problem that brought you to the hospital while keeping you as comfortable as possible. Medications were used to bring your condition under control and your discharge instructions will include directions for any medications you should take after leaving the hospital. Please make sure you see your Primary Care Provider as part of your follow up plan. Activity: Resume your previous activity Non-emergency contact: Primary Care Provider Call non-emergency contact if: you have any medication questions, your symptoms worsen and you have a fever Follow-up/Referrals: Fritz Campos, [Primary Care Provider] - 04/20/21 10:15 am Diet: Heart Healthy Diet Texture: Easy to Chew Addtl Attending Provider Instructions: You have been hospitalized for a UTI, and treated with IV antibiotics and you have completed these antibiotics while in the hospital. You were given eye drops for a possible conjunctivitis and this has improved. No further drops required. You had arm/neck pain. Imaging was negative for any acute fractures, and CT of the head was negative for stroke. Orthopedics stopped by to see you and did not feel any issues, you can continue Tylenol and ice as needed for discomfort. There was an incidental pulmonary nodule on your CT of the neck and pulmonary was consulted. Given prior following with Dr Mobley, pulmonary medicine was consulted and ordered a CT of the chest, which did show evidence for an increase in the size of nodule that Dr Mobley was previously following. You should have continued monitoring of this with your primary care, as this could represent a s low growing malignancy. Dr Gracia (pulmonology) saw you and reviewed these imaging and felt you can continue routine monitoring with primary care. Given underlying dementia, we did check a B12 level and this was on the lower end of normal. You have been sent a prescription to take this daily at discharge, but can also find this over the counter to help prevent worsening memory/neuropathy symptoms/as well as anemia. Continue your bowel regimen at home to prevent worsening constipation. Imaging showed moderate stool and you were given Dulcolax suppository as taken at home and have had multiple bowel movements since that time. Worsening constipation can cause issues with urinary retention and put you at increased risk for repeat infections. Please ensure bowels moving at least every other days. You should follow up with your PCP in the next 7-10 days to monitor your progress. Please return to the ER with any symptoms concerning for you. It has been a pleasure being a part of the medical team providing for you while you have been in the hospital. Take care! Pending Studies at Discharge: No Stand-Alone Forms: My [facility] Medications and DC Order Prescriptions: New diclofenac sodium [Voltaren Arthritis Pain] 1 % Gel 4 g EXT QID PRN (Reason: pain) Qty: 100 RF: 0 cyanocobalamin (vitamin B-12) 1,000 mcg capsule 1,000 mcg PO DAILY Qty: 30 RF: 0 Continued (DME) disposable gloves [Disposable Latex-Free Gloves] Misc See Rx Instructions .ROUTE .MEDSUPPLY Qty: 1000 RF: 3 aspirin [Aspirin Low Dose] 81 mg tablet,delayed release (DR/EC) 81 mg PO QAM Qty: 90 RF: 3 diltiazem HCl 180 mg capsule,extended release 24hr 180 mg PO QAM Qty: 30 RF: 5 tamsulosin [Flomax] 0.4 mg capsule 0.4 mg PO HS Qty: 90 RF: 3 nitroglycerin 0.4 mg tablet, sublingual 0.4 mg SL Q5M PRN (Reason: chest pain) Qty: 25 RF: 0 rivastigmine tartrate 3 mg capsule 3 mg PO QAM RF: 0 lidocaine [Aspercreme (lidocaine HCl)] 4 % adhesive patch,medicated 1 patch topical DAILY PRN (Reason: Pain) RF: 0 acetaminophen [Tylenol Extra Strength] 500 mg tablet 1,000 mg PO BID Qty: 120 RF: 5 memantine [Namenda] 10 mg tablet 10 mg PO BID Qty: 180 RF: 4 polyethylene glycol 3350 [Miralax] 17 gram/dose powder 17 g PO QAM RF: 0 metoprolol tartrate 25 mg tablet 25 mg PO BID Qty: 180 RF: 3 cholecalciferol (vitamin D3) [Vitamin D3] 1,000 unit Capsule 1,000 unit PO HS RF: 0 coenzyme Q10 [CoQ-10] 100 mg Capsule 100 mg PO BID RF: 0 bisacodyl [Dulcolax (bisacodyl)] 10 mg Suppository 10 mg OR DAILY PRN (Reason: Constipation) RF: 0 docusate sodium [Colace] 100 mg Capsule 100 mg PO BID RF: 0 Eliquis 5 mg tablet 5 mg PO BID RF: 0 Discontinued ciprofloxacin HCl [Cipro] 500 mg tablet 500 mg PO BID Qty: 14 RF: 0 Discharge Orders: Discharge Order (Routine); Ordered 04/15/21 Ordered By: Katherin So Admission Data Admit Date/Time: 04/01/21 20:12 Attending Provider: Jez Tucker Admit Provider: Geni Razo Primary Care Provider: Fritz Campos Other Providers: Geni Razo ; [facility] ; Jovon Gracia Other Interventions: Discharge Summary Assessment (RN) Last Done: 04/15/21 13:18 Coding Level of Care Code D/C DAY MANAGEMENT >30 MINS Diagnoses UTI (urinary tract infection) N39.0 Pulmonary nodule R91.1 Bacteremia R78.81 Dementia F03.90 Atrial fibrillation with RVR I48.91 BPH (benign prostatic hyperplasia) N40.0 CVA (cerebral vascular accident) I63.9 B12 deficiency E53.8
--- NOTE | 2021-04-15 10:48 | Pulmonology Progress Note ---
Date of Service April 15, 2021 Assessment & Plan (1) Pulmonary nodule: Plan: CT chest 04/14/21 personally reviewed: Left upper lobe 1.2 x 0.8 x 1.5 cm partly solid partly groundglass nodule No mediastinal lymphadenopathy The nodule has gradually increased in size since 2017. Growing at the rate of approximately 1 mm/year CT neck personally reviewed: Left upper lobe mostly groundglass pulmonary nodule 1.2 cm x 0.7 cm I did look at the CAT scan of chest which was done 01/31/2019 which showed left upper lobe nodularity 1 cm x 0.5 cm --Left upper lobe pulmonary nodule 1.2 x 0.8 x 1.5 cm Seems to have increased in size 1mm/year compared to the CAT scan of the chest done 2018 and even 02/2016 where it measured 7.5mm Patient was following up with Dr. Mobley as an outpatient, he saw the patient last on 03/12/2019 The possibility of it being cancer is high. Adenocarcinoma in situ/slow-growing cancer would be the best differential I do not think there is a need for biopsy or pursuing any diagnosis right now. Would recommend a repeat CT chest in 1 year was called and updated regarding the plan I do want to pursue anything aggressive given the multiple comorbidities that he has Yearly CAT scan follow-up Plan: Repeat CT chest in 1 year No further recommendation from pulmonary perspective. Please note the above document was generated using voice recognition software. It may contain grammatical, syntax or spelling errors.Any formal questions or concerns about the content, text or information contained within the body of this dictation should be directly addressed to the provider for clarification. Admission and Anticipated Discharge Date Admission Date: April 01, 2021 Review of Systems Review of Systems: All systems reviewed & are unremarkable except as noted in Subjective Physical Exam Physical Exam: Constitutional: No acute distress HEENT: EOMI, PERRLA Respiratory system: Decreased air entry bilaterally, no wheeze, no rhonchi, mild crackles bilaterally CVS: S1-S2 positive, no murmurs or gallops Abdomen: Soft, nontender, nondistended, positive bowel sounds x4 Extremities: +2 pulses bilaterally radialis/ dorsalis pedis, no cyanosis, no edema Neuro: Awake alert oriented x3 Psych: Normal mood and affect G/U: No Crews Skin: no rashes, warm and dry Lymphatic: no cervical or axillary lymphadenopathy Results & Data Results & Data ([facility]) Vital Signs (Past 12 Hours) Vital Signs Temp Pulse Resp BP Pulse Ox 04/15/21 07:56 36.4 C L 75 20 130/80 98 Laboratory Results 04/14/21 09:04 04/14/21 09:04 PG Care Time/CCT Total # of Minutes Spent Total Time Spent with Patient: Total time spent is greater than 50% in coordination of care (as documented) at patient's floor/unit and/or counseling patient: [place]oding [place] [address] Subseq Hosp Care Lvl 2 Patient Type Established Diagnoses Pulmonary nodule R91.1
== END 2021-04-15 19:27 | disposition home health service (06) | DRG 690 ==
LOC: ED 16:53 → SUATTDRO 20:12 → 3N 20:12

== ENCOUNTER 2021-09-24 18:01 | Inpatient (IN) ==
[2021-09-24] MEDS ORDERED: SODIUM CHLORIDE 0.9% 500 ML IV SCH (19:00)
--- NOTE | 2021-09-24 19:13 | Emergency Department Note ---
Impression & Plan Altered mental status, Dementia, History of stroke, Seizure-like activity ED Provider Note NAME: SAMANTHA LENTZ AGE: 75 SEX: M : 1945 ARRIVES VIA: Ambulance INFORMANT: [family, ems] ED PROVIDER(S): [Emile Richards MD] CHIEF COMPLAINT: Seizure HISTORY OF PRESENT ILLNESS: The patient is a 75-year-old male with a history of CVA, MS and dementia. He was recently in the ER for some weakness and worsening of his mental state. Work-up was unrevealing. The patient's has noticed some staring spells. Today, a very short time ago, the patient had a sudden quick movement of his head to the left. He seemed paralyzed and stiff. There was some shaking of his extremities. Things lasted for maybe 30 seconds to a minute and then resolved. His believes he may have had a seizure. He has no seizure history. As per EMS, BSG was 116. There has been no recurrence of his potential seizure activity. The patient has not had fever, chills or cough. He has been eating. REVIEW OF SYSTEMS: See HPI for pertinent positives and negatives. A total of ten systems were reviewed and were otherwise negative. PMHx/PSHx: See Below SOCIAL HISTORY: See Below. PHYSICAL EXAM: GENERAL: Patient is in no acute distress. HEENT: No acute trauma, normocephalic atraumatic, mucous membranes moist, no nasal congestion, no scleral icterus. NECK: No stridor, no adenopathy, no meningismus, trachea is midline. LUNGS: Clear to auscultation bilaterally, no wheeze, no rhonchi, breath sounds equal. HEART: No obvious murmur, irregular rhythm, normal rate. ABDOMEN: Soft, nontender, bowel sounds positive, no peritonitis. EXTREMITIES: No cyanosis or edema, full range of motion of all the joints without pain or difficulty, no signs for acute trauma. NEUROLOGIC: Awake, nonverbal, seems to prefer to look to the right. There is some movement of the right upper extremity. I see no real movement of his left upper extremity or lower extremities SKIN: No rash, no jaundice, no diaphoresis. DIFFERENTIAL DIAGNOSIS: Intracranial bleeding, electrolyte imbalance, anemia, seizure, worsening dementia, stroke, TIA, infection, among others. EMERGENCY DEPARTMENT COURSE/PROCEDURES: ECG: Indication was seizure. The ECG shows atrial fibrillation with a rate of 83. LVH is present. There are T wave inversions noted across the anterior and lateral leads. There is no ST elevation, no PVCs. The QTc is 465. Compared to an ECG from 18 September 2021, I see no significant change. Continuous Cardiac Monitoring: An order was placed for continuous cardiac monitoring. The monitor shows a rate of 86 with atrial fibrillation. MEDICAL DECISION MAKING: There was no leukocytosis or concerning anemia. There was a normal platelet count. No renal failure, no significant electrolyte abnormality. Alk phos slightly elevated, the remaining liver enzymes were unremarkable. ECG showed atrial fibrillation, there were T wave inversions. The ECG appears unchanged compared to previous. Cardiac enzyme testing x1 was not consistent with acute cardiac injury. No worrisome liver enzyme elevation. The patient appeared to be in a euthyroid state. Prolactin level was normal. COVID test returned negative. Brain CT showed chronic findings, no acute bleed or mass-effect. Patient presents with potential seizure activity. He received IV Keppra, 2 g. He was given IV saline, 500 cc. I did speak with Dr. Diaz of neurology. Keppra was agreed upon as warranted. The patient is being hospitalized for further work-up/care. I did speak the patient's . I spoke with case management. The on-call hospitalist was consulted. Past Med/Surg History Medical History Acute hypotension Acute kidney injury Acute urinary retention Atrial fibrillation with RVR CAD (coronary artery disease) CAD (coronary artery disease) CHF (congestive heart failure) Closed fracture of radial head Constipation CVA (cerebral vascular accident) Gastroesophageal reflux disease Hyperlipidemia Hypertension Ileus Nephrolithiasis BARBARA (obstructive sleep apnea) Small bowel obstruction Symptomatic bradycardia Urinary retention Surgical History History of knee replacement History of PTCA Family History Father Stroke Mother Myocardial infarction Aunt Diabetes Family/Other Heart disease Hypertension Nephrolithiasis Other Dementia Denies family history of Prostate cancer Social History Smoking Status: Never smoker Second Hand Exposure: No; Do You Dip or Chew Tobacco: No; Tobacco Cessation Education Requested by Patient: No Hx Alcohol Use: No Hx Substance Use: No Preferred Language: Dutch Communication Ability: Impaired Visual Impairment: Limited Hearing Ability: Normal Family Preservation Worker Required: No Beliefs That Will Affect Care: None marital status: Current Living Situation: Spouse current occupational status: retired How many Children do You have: 1 Other Information That Helps Us Care for You: No Feels Safe at Home: Yes Safety Concerns: Feels Safe At This Time Childhood Exposure to Second-Hand Smoke: Yes caffeine: No Physical Activity Frequency: Does not Exercise Seatbelt Use: always Sunscreen Use: No (not in the sun) Assistive Devices: Denture - Upper and Denture - Lower Allergies Allergies Allergy/AdvReac Type Severity Reaction Status Date / Time isopropyl alcohol Allergy Severe RUBBING Verified 09/24/21 19:52 ALCOHOL - SHORTNESS OF BREATH adhesive Allergy Intermediate BLISTERS Verified 09/24/21 19:52 escitalopram Allergy Unknown UNSURE-DOES Verified 09/24/21 19:52 NOT KNOW oxycodone AdvReac Mild CONFUSION Verified 09/24/21 19:52 lisinopril AdvReac Unknown elevated Verified 09/24/21 19:52 creatinine Home Meds Home Medications Medication Instructions Recorded Confirmed cholecalciferol (vitamin D3) 25 1,000 unit PO HS 02/13/18 09/24/21 mcg (1,000 unit) capsule (Vitamin D3) coenzyme Q10 100 mg capsule 100 mg PO BID 02/13/18 09/24/21 (CoQ-10) polyethylene glycol 3350 17 17 g PO QAM 06/04/20 09/24/21 gram/dose oral powder (Miralax) bisacodyl 10 mg rectal suppository 10 mg TN DAILY PRN Constipation 12/28/20 09/24/21 (Dulcolax (bisacodyl)) docusate sodium 100 mg capsule 100 mg PO BID 12/28/20 09/24/21 (Colace) rivastigmine tartrate 3 mg capsule 3 mg PO QAM 12/31/20 09/24/21 clotrimazole 1 % topical cream 1 applic topical BID PRN Skin 07/28/21 09/24/21 Irritation d-mannose 500 mg capsule 1,000 mg PO QAM 07/28/21 09/24/21 Previous Rx's Medication Instructions Recorded acetaminophen 500 mg tablet 1,000 mg PO BID Pain #120 tabs 06/14/20 (Tylenol Extra Strength) memantine 10 mg tablet (Namenda) 10 mg PO BID #180 tabs 06/14/20 disposable gloves (Disposable #1,000 ea 07/21/20 Latex-Free Gloves) aspirin 81 mg tablet,delayed 81 mg PO QAM #90 tabs 09/08/20 release (Pieter Low Dose Aspirin) tamsulosin 0.4 mg capsule (Flomax) 0.4 mg PO HS #90 caps 11/22/20 metoprolol tartrate 25 mg tablet 25 mg PO BID #180 tabs 12/15/20 diclofenac sodium 1 % topical gel 4 g EXT QID PRN pain #100 grams 04/15/21 (Voltaren Arthritis Pain) nitroglycerin 0.4 mg sublingual 0.4 mg sublingual Q5M PRN chest 04/19/21 tablet pain #25 tabs diltiazem HCl 180 mg 180 mg PO QAM #90 caps 05/04/21 capsule,extended release 24 hr finger splint #2 ea 05/19/21 cyanocobalamin (vitamin B-12) 1,000 mcg PO DAILY #30 caps 06/30/21 1,000 mcg capsule nystatin 100,000 unit/gram topical 1 applic topical QID #60 grams 07/28/21 powder apixaban 5 mg tablet (Eliquis) 5 mg PO BID #180 tabs 09/13/21 Results & Data (ED) Vital Signs Vital Signs - 24 hr 09/24/21 18:13 09/24/21 18:13 09/24/21 19:07 Temperature 36.7 C Temperature Source Oral Pulse Rate 86 Pulse Rate [Apical] Respiratory Rate 19 Blood Pressure 147/86 H Blood Pressure [Left Arm] Blood Pressure Mean 106 Blood Pressure Mean [Left Arm] Pulse Oximetry 97 98 Oxygen Delivery Method Room Air Room Air Room Air Sepsis Recent Fever Within 48 Hours No Sepsis New/Unexplained Change in Mental Status N/A Sepsis Action Taken by Nursing No Action Required 09/24/21 20:00 09/24/21 22:00 Temperature Temperature Source Pulse Rate Pulse Rate [Apical] 92 H 90 Respiratory Rate 15 23 Blood Pressure Blood Pressure [Left Arm] 143/90 H 133/82 Blood Pressure Mean Blood Pressure Mean [Left Arm] 107 99 Pulse Oximetry 98 97 Oxygen Delivery Method Room Air Sepsis Recent Fever Within 48 Hours Sepsis New/Unexplained Change in Mental Status Sepsis Action Taken by Half-Way Medications Current Medication List: was personally reviewed by me Laboratory Data Attestation: I reviewed the patient's lab results. Result diagrams: 09/25/21 07:19 09/25/21 07:19 Lab Results 09/24/21 09/24/21 09/24/21 Range/Units 19:10 19:25 19:25 WBC 8.25 (4.8-10.8) K/ul RBC 5.07 (4.63-6.08) M/uL Hgb 15.4 (14.0-18.0) g/dl Hct 47.6 (40.1-51.0) % MCV 93.9 (80.0-100.0) fL MCH 30.4 (25.0-34.0) pg MCHC 32.4 (32.0-36.0) g/dL RDW Std Deviation 50.4 H (36.4-46.3) fL RDW Coeff of Alex 14.7 H (11.5-14.5) % Plt Count 195 (130-400) K/uL MPV 10.3 (9.4-12.4) fL Immature Gran % (Auto) 0.4 % Neut % (Auto) 76.5 % Lymph % (Auto) 14.8 % Ritchie % (Auto) 5.9 % Eos % (Auto) 1.7 % Baso % (Auto) 0.7 % Neut # (Auto) 6.31 (1.4-6.5) K/uL Lymph # (Auto) 1.22 (1.2-3.4) K/uL Ritchie # (Auto) 0.49 (0.24-0.82) K/uL Eos # (Auto) 0.14 (0-0.50) K/uL Baso # (Auto) 0.06 (0-0.2) K/uL Immature Gran # (Auto) 0.03 H (0.00-0.02) K/uL Sodium 137 (136-145) mmol/L Potassium 4.2 (3.5-5.1) mmol/L Chloride 104 (98-107) mmol/L Carbon Dioxide 23 (21-32) mmol/L Anion Gap 10 (3-11) BUN 15 (6-23) mg/dl Creatinine 0.97 (0.6-1.4) mg/dl Est Cr Clr Drug Dosing Not Reportable Est GFR ( Amer) 88.8 ml/min Est GFR (Non-Af Amer) 76.6 ml/min BUN/Creatinine Ratio 15.5 (10-20) Glucose 102 H (70-99(Fasting)) mg/dl Calcium 9.4 (8.5-10.1) mg/dl Magnesium 2.1 (1.7-2.4) mg/dl Total Bilirubin 0.5 (0.2-1.0) mg/dl AST 18 (13-39) U/L ALT 14 (7-52) U/L Alkaline Phosphatase 148 H (34-104) U/L Troponin I High Sens 8.0 (0-20) pg/ml Total Protein 7.8 (6.0-8.3) gm/dl Albumin 4.1 (3.4-5.0) gm/dl Globulin 3.7 (2.5-4.0) gm/dl Albumin/Globulin Ratio 1.1 (0.9-2) TSH (0.300-4.500) uIu/ml Prolactin ng/ml SARS-CoV-2, RNA, NAAT NEGATIVE (NEGATIVE) 09/24/21 09/24/21 Range/Units 19:25 19:25 WBC (4.8-10.8) K/ul RBC (4.63-6.08) M/uL Hgb (14.0-18.0) g/dl Hct (40.1-51.0) % MCV (80.0-100.0) fL MCH (25.0-34.0) pg MCHC (32.0-36.0) g/dL RDW Std Deviation (36.4-46.3) fL RDW Coeff of Alex (11.5-14.5) % Plt Count (130-400) K/uL MPV (9.4-12.4) fL Immature Gran % (Auto) % Neut % (Auto) % Lymph % (Auto) % Ritchie % (Auto) % Eos % (Auto) % Baso % (Auto) % Neut # (Auto) (1.4-6.5) K/uL Lymph # (Auto) (1.2-3.4) K/uL Ritchie # (Auto) (0.24-0.82) K/uL Eos # (Auto) (0-0.50) K/uL Baso # (Auto) (0-0.2) K/uL Immature Gran # (Auto) (0.00-0.02) K/uL Sodium (136-145) mmol/L Potassium (3.5-5.1) mmol/L Chloride (98-107) mmol/L Carbon Dioxide (21-32) mmol/L Anion Gap (3-11) BUN (6-23) mg/dl Creatinine (0.6-1.4) mg/dl Est Cr Clr Drug Dosing Est GFR ( Amer) ml/min Est GFR (Non-Af Amer) ml/min BUN/Creatinine Ratio (10-20) Glucose (70-99(Fasting)) mg/dl Calcium (8.5-10.1) mg/dl Magnesium (1.7-2.4) mg/dl Total Bilirubin (0.2-1.0) mg/dl AST (13-39) U/L ALT (7-52) U/L Alkaline Phosphatase (34-104) U/L Troponin I High Sens (0-20) pg/ml Total Protein (6.0-8.3) gm/dl Albumin (3.4-5.0) gm/dl Globulin (2.5-4.0) gm/dl Albumin/Globulin Ratio (0.9-2) TSH 2.179 (0.300-4.500) uIu/ml Prolactin 6.39 ng/ml SARS-CoV-2, RNA, NAAT (NEGATIVE) Administered Medications Apixaban (Apixaban 5 Mg Tablet) 5 mg PO BID ANTONIO Stop: 10/25/21 00:01 Last Admin: 09/25/21 08:24 Dose: 5 mg Documented By: Admin: 09/25/21 01:40 Dose: 5 mg Documented By: DINA Aspirin (Aspirin 81 Mg Ectab) 81 mg PO QA ANTONIO Stop: 10/25/21 08:59 Last Admin: 09/25/21 08:27 Dose: 81 mg Documented By: SHARON Cyanocobalamin (Cyanocobalamin (B-12) 500 Mcg Tablet) 1,000 mcg PO DAILY ANTONIO Stop: 10/25/21 08:59 Last Admin: 09/25/21 08:27 Dose: 1,000 mcg Documented By: SHARON Diltiazem HCl (Diltiazem Hcl 180 Mg Capcr) 180 mg PO QAM ANTONIO Stop: 10/25/21 08:59 Last Admin: 09/25/21 08:26 Dose: 180 mg Documented By: SHARON Docusate Sodium (Docusate Sodium 100 Mg Cap) 100 mg PO BID ANTONIO Stop: 10/25/21 00:01 Last Admin: 09/25/21 08:34 Dose: 100 mg Documented By: Admin: 09/25/21 01:41 Dose: 100 mg Documented By: DINA Levetiracetam 500 mg/ Sodium (Chloride) 105 mls @ 420 mls/hr IV Q12H ANTONIO Stop: 10/25/21 07:59 Last Infusion: 09/25/21 08:44 Dose: 0 mls/hr Documented By: Admin: 09/25/21 08:24 Dose: 420 mls/hr Documented By: SHARON Memantine (Memantine Hcl 10 Mg Tab) 10 mg PO BID ANTONIO Stop: 10/25/21 00:01 Last Admin: 09/25/21 08:44 Dose: Not Given Documented By: Admin: 09/25/21 01:41 Dose: 10 mg Documented By: DINA Metoprolol Tartrate (Metoprolol Tartrate 25 Mg Tab) 25 mg PO BID ANTONIO Stop: 10/25/21 08:59 Last Admin: 09/25/21 08:25 Dose: 25 mg Documented By: SHARON Nystatin (Nystatin Powder 15gm Btl) 1 appln EXT QID ANTONIO Stop: 10/25/21 08:59 Last Admin: 09/25/21 08:33 Dose: 1 appln Documented By: SHARON Polyethylene Glycol (Polyethylene (Miralax) 17 Gm Pack) 17 gm PO QAM ANTONIO Stop: 10/25/21 08:59 Last Admin: 09/25/21 08:44 Dose: 17 gm Documented By: SHARON Rivastigmine Tartrate (Rivastigmine Tartrate 1.5 Mg Cap) 3 mg PO QAM ANTONIO Stop: 10/25/21 08:59 Last Admin: 09/25/21 08:31 Dose: 3 mg Documented By: SHARON Discontinued Medications Sodium Chloride (Nss) 500 mls @ 999 mls/hr IV .Q31M ANTOINO Stop: 09/24/21 19:30 Last Infusion: 09/24/21 19:49 Dose: 0 mls/hr Documented By: Admin: 09/24/21 19:17 Dose: 999 mls/hr Documented By: ML Levetiracetam 2,000 mg/ Sodium (Chloride) 270 mls @ 999 mls/hr IV NOW STA Stop: 09/24/21 19:44 Last Infusion: 09/24/21 20:39 Dose: 0 mls/hr Documented By: Admin: 09/24/21 20:21 Dose: 999 mls/hr Documented By: ML Imaging Data Radiologist's Impression: Head CT 09/24/21 18:[address] DOSE: 691.05 mGy.cm HISTORY: seizure TECHNIQUE: Multiaxial CT images of the head were performed without the use of intravenous contrast. Automated exposure control was utilized for this study. A dose lowering technique was utilized adhering to the principles of ALARA. Comparison: Head CT 09/18/2021. Findings: The paranasal sinuses and mastoid air cells are clear. The calvarium and skull base are intact. There is no mass, hematoma, midline shift, acute infarct. White matter hypodensity is nonspecific but suggestive of microvascular ischemic change. The ventricles and sulci demonstrate mild age-related involutional changes. Asymmetric enlargement of the lateral ventricles remains unchanged. Impression: No significant change compared to the prior study. No acute intracranial abnormality. ACT 112: Negative or not required by law. Electronically signed by: Terrence Huizar M.D. 09/25/2021 7:[address]: There is no acute abnormality when compared to a CT from 09/18/2021. No acute intracranial hemorrhage is seen. Old stroke noted. Prominent ventricles. Discharge Plan Visit Data Chief Complaint: Seizure Stated Complaint: SEIZURE ED Provider: Emile Richards Discharge Problem: Altered mental status, Dementia, History of stroke, Seizure-like activity Patient Disposition: Admitted As Inpatient Condition: Good Discharge Instructions Interventions: ED Discharge Assessment Last Done: 09/24/21 22:54
[2021-09-24 19:35] LABS: Basophils # (auto) 0.06 K/uL (0-0.2); Basophils % (auto) 0.7 %; Eosinophils # (auto) 0.14 K/uL (0-0.50); Eosinophils % (auto) 1.7 %; Hematocrit (blood only) 47.6 % (40.1-51.0); Hemoglobin 15.4 g/dl (14.0-18.0); Immature Granulocytes # (auto) 0.03 K/uL (0.00-0.02); Immature Granulocytes % (auto) 0.4 %; Lymphocytes # (auto) 1.22 K/uL (1.2-3.4); Lymphocytes % (auto) 14.8 %; Mean Corpuscular Hemoglobin 30.4 pg (25.0-34.0); Mean Corpuscular Hgb Conc 32.4 g/dL (32.0-36.0); Mean Corpuscular Volume 93.9 fL (80.0-100.0); Mean Platelet Volume 10.3 fL (9.4-12.4); Monocytes # (auto) 0.49 K/uL (0.24-0.82); Monocytes % (auto) 5.9 %; Neutrophils # (auto) 6.31 K/uL (1.4-6.5); Neutrophils % (auto) 76.5 %; Platelet Count 195 K/uL (130-400); RDW Coefficient of Variation 14.7 % (11.5-14.5); RDW Standard Deviation 50.4 fL (36.4-46.3); Red Blood Count 5.07 M/uL (4.63-6.08); White Blood Count 8.25 K/ul (4.8-10.8)
[2021-09-24 20:22] LABS: Alanine Aminotransferase 14 U/L (7-52); Albumin Globulin Ratio 1.1 (0.9-2); Albumin Level 4.1 gm/dl (3.4-5.0); Alkaline Phosphatase 148 U/L (34-104); Anion Gap 10 (3-11); Aspartate Aminotransferase 18 U/L (13-39); BUN Creatinine Ratio 15.5 (10-20); Bilirubin,Total 0.5 mg/dl (0.2-1.0); Blood Urea Nitrogen 15 mg/dl (6-23); Calcium 9.4 mg/dl (8.5-10.1); Carbon Dioxide 23 mmol/L (21-32); Chloride 104 mmol/L (98-107); Est GFR (African American) 88.8 ml/min; Est GFR (Non-African American) 76.6 ml/min; Globulin 3.7 gm/dl (2.5-4.0); Glucose 102 mg/dl (70-99(Fasting)); Magnesium 2.1 mg/dl (1.7-2.4); Potassium 4.2 mmol/L (3.5-5.1); Sodium 137 mmol/L (136-145); Total Protein 7.8 gm/dl (6.0-8.3)
--- NOTE | 2021-09-24 22:15 | History & Physical Report ---
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 (2) Dementia: Plan: Continue memantine and rivastigmine (3) History of CVA (cerebrovascular accident): Plan: Further assessment with MRI brain to assess for new possible CVA (4) Hyperlipidemia: Plan: On no specific treatment Check a fasting lipid panel (5) BARBARA (obstructive sleep apnea): Plan: CPAP at bedtime as needed (6) Atrial fibrillation with RVR: Plan: Continue apixaban and diltiazem extended release (7) BPH (benign prostatic hyperplasia): Plan: Continue tamsulosin at bedtime History of Present Illness Chief Complaint: The patient is brought to the emergency department today with concerns regarding possible seizure activity as noted by his prior to arrival. Primary Care Provider: Fritz Campos DO The patient is a 75-year-old male with a past medical history including CVA with residual right-sided weakness, DJD of knee, hyperlipidemia, pulmonary nodule, CHF, BARBARA, atrial fibrillation with RVR, dementia, syncope, BPH, B12 deficiency and jerking movements of extremities. The patient was recently seen in emergency department on 09/18/2021 for weakness and were acute worsening of mental state, with negative work-up at that time. His reports that she had noticed some staring spells today, and prior to arrival to emergency department he had a sudden quick jerking movement of his head to the left, seemed paralyzed and stiff, and then had some shaking of his extremities of duration about 30 seconds to 1 minute. EMS was called, blood sugar was 116, there was no seizure- like activity noted at that time by EMS, and the patient was brought to the emergency department for assessment. Allergies Allergy/AdvReac Type Severity Reaction Status Date / Time isopropyl alcohol Allergy Severe RUBBING Verified 09/24/21 19:52 ALCOHOL - SHORTNESS OF BREATH adhesive Allergy Intermediate BLISTERS Verified 09/24/21 19:52 escitalopram Allergy Unknown UNSURE-DOES Verified 09/24/21 19:52 NOT KNOW oxycodone AdvReac Mild CONFUSION Verified 09/24/21 19:52 lisinopril AdvReac Unknown elevated Verified 09/24/21 19:52 creatinine Home Medications Medication Instructions Recorded Confirmed Type cholecalciferol (vitamin D3) 25 1,000 unit PO HS 02/13/18 09/24/21 History mcg (1,000 unit) capsule (Vitamin D3) coenzyme Q10 100 mg capsule 100 mg PO BID 02/13/18 09/24/21 History (CoQ-10) polyethylene glycol 3350 17 17 g PO QAM 06/04/20 09/24/21 History gram/dose oral powder (Miralax) acetaminophen 500 mg tablet 1,000 mg PO BID Pain #120 tabs 06/14/20 09/24/21 Rx (Tylenol Extra Strength) memantine 10 mg tablet (Namenda) 10 mg PO BID #180 tabs 06/14/20 09/24/21 Rx disposable gloves (Disposable #1,000 ea 07/21/20 09/23/21 Rx Latex-Free Gloves) aspirin 81 mg tablet,delayed 81 mg PO QAM #90 tabs 09/08/20 09/24/21 Rx release (Pieter Low Dose Aspirin) tamsulosin 0.4 mg capsule (Flomax) 0.4 mg PO HS #90 caps 11/22/20 09/24/21 Rx metoprolol tartrate 25 mg tablet 25 mg PO BID #180 tabs 12/15/20 09/24/21 Rx bisacodyl 10 mg rectal suppository 10 mg OH DAILY PRN Constipation 12/28/20 09/24/21 History (Dulcolax (bisacodyl)) docusate sodium 100 mg capsule 100 mg PO BID 12/28/20 09/24/21 History (Colace) rivastigmine tartrate 3 mg capsule 3 mg PO QAM 12/31/20 09/24/21 History diclofenac sodium 1 % topical gel 4 g EXT QID PRN pain #100 grams 04/15/21 09/24/21 Rx (Voltaren Arthritis Pain) nitroglycerin 0.4 mg sublingual 0.4 mg sublingual Q5M PRN chest 04/19/21 09/24/21 Rx tablet pain #25 tabs diltiazem HCl 180 mg 180 mg PO QAM #90 caps 05/04/21 09/24/21 Rx capsule,extended release 24 hr finger splint #2 ea 05/19/21 09/23/21 Rx cyanocobalamin (vitamin B-12) 1,000 mcg PO DAILY #30 caps 06/30/21 09/24/21 Rx 1,000 mcg capsule clotrimazole 1 % topical cream 1 applic topical BID PRN Skin 07/28/21 09/24/21 History Irritation d-mannose 500 mg capsule 1,000 mg PO QAM 07/28/21 09/24/21 History nystatin 100,000 unit/gram topical 1 applic topical QID #60 grams 07/28/21 09/24/21 Rx powder apixaban 5 mg tablet (Eliquis) 5 mg PO BID #180 tabs 09/13/21 09/24/21 Rx Past Med/Surg History Medical History (Updated 09/25/21 @ 00:05 by Buster Montez MD) Acute hypotension Acute kidney injury Acute urinary retention Atrial fibrillation with RVR CAD (coronary artery disease) CAD (coronary artery disease) CHF (congestive heart failure) Closed fracture of radial head Constipation CVA (cerebral vascular accident) Gastroesophageal reflux disease Hyperlipidemia Hypertension Ileus Nephrolithiasis BARBARA (obstructive sleep apnea) Small bowel obstruction Symptomatic bradycardia Urinary retention Surgical History History of knee replacement History of PTCA Family History Father Stroke Mother Myocardial infarction Aunt Diabetes Family/Other Heart disease Hypertension Nephrolithiasis Other Dementia Denies family history of Prostate cancer Social History Smoking Status: Unknown if ever smoked Second Hand Exposure: No; Hx Alcohol Use: No Hx Substance Use: No Preferred Language: Kiswahili Communication Ability: Effective Visual Impairment: Limited Hearing Ability: Normal [employer]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 Beliefs That Will Affect Care: None marital status: Current Living Situation: Spouse current occupational status: retired How many Children do You have: 1 Feels Safe at Home: Yes Childhood Exposure to Second-Hand Smoke: Yes caffeine: No Physical Activity Frequency: Does not Exercise Seatbelt Use: always Sunscreen Use: No (not in the sun) Assistive Devices: None Review of Systems Review of Systems: HPI and review of systems is primarily provided by his , 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 HEENT--PERRL, EOMI, mucous membranes and oropharynx dry. Neck--supple. No JVD. No bruits. Thyroid normal, trachea midline, no adenopathy. Heart--normal S1 and S2. No murmurs, rubs or gallops. Lungs--clear bilaterally, no respiratory distress, no accessory muscle use. Abdomen--normal bowel sounds and soft. Nontender. Nondistended, no hernias or masses, no organomegaly. Extremities--no cyanosis or clubbing. No edema. Dermatologic--normal skin turgor, normal color, no abnormal lymph nodes, no rash. Neurologic--cranial nerves II through XII grossly intact, no tremors noted. Rheumatologic--normal range of motion, Psychiatric--normal affect. Results & Data Results & Data ([facility]) Vital Signs (Past 12 Hours) Vital Signs Temp Pulse Pulse Resp BP BP Pulse Ox 09/24/21 20:00 92 H 15 143/90 H 98 09/24/21 19:07 98 09/24/21 18:13 09/24/21 18:13 36.7 C 86 19 147/86 H 97 O2 Del Method 09/24/21 20:00 Room Air 09/24/21 19:07 Room Air 09/24/21 18:13 Room Air 09/24/21 18:13 Room Air Laboratory Results Laboratory Results WBC 8.25 K/ul (4.8-10.8) 09/24/21 19:25 RBC 5.07 M/uL (4.63-6.08) 09/24/21 19:25 Hgb 15.4 g/dl (14.0-18.0) 09/24/21 19:25 Hct 47.6 % (40.1-51.0) 09/24/21 19:25 MCV 93.9 fL (80.0-100.0) 09/24/21 19: MCH 30.4 pg (25.0-34.0) 09/24/21: MCHC 32.4 g/dL (32.0-36.0) 09/24/21: RDW Std Deviation 50.4 fL (36.4-46.3) H 09/24/21: RDW Coeff of Alex 14.7 % (11.5-14.5) H 09/24/21: Plt Count 195 K/uL (130-400) 09/24/21: MPV 10.3 fL (9.4-12.4) 09/24/21: Immature Gran % (Auto) 0.4 % 09/24/21: Neut % (Auto) 76.5 % 09/24/21: Lymph % (Auto) 14.8 % 09/24/21: [place] % (Auto) 5.9 % 09/24/21: Eos % (Auto) 1.7 % 09/24/21: Baso % (Auto) 0.7 % 09/24/21: Neut # (Auto) 6.31 K/uL (1.4-6.5) 09/24/21: Lymph # (Auto) 1.22 K/uL (1.2-3.4) 09/24/21: [place] # (Auto) 0.49 K/uL (0.24-0.82) 09/24/21: Eos # (Auto) 0.14 K/uL (0-0.50) 09/24/21: Baso # (Auto) 0.06 K/uL (0-0.2) 09/24/21: Immature Gran # (Auto) 0.03 K/uL (0.00-0.02) H 09/24/21 19: Sodium 137 mmol/L (136-145) 09/24/21:25 Potassium 4.2 mmol/L (3.5-5.1) 09/24/21: Chloride 104 mmol/L (98-107) 09/24/21 19: Carbon Dioxide 23 mmol/L (21-32) 09/24/21 19:25 Anion Gap 10 (3-11) 09/24/21 19:25 BUN 15 mg/dl (6-23) 09/24/21 19:25 Creatinine 0.97 mg/dl (0.6-1.4) 09/24/21 19:25 Est Cr Clr Drug Dosing Not Reportable 09/24/21 19:25 Est GFR ( Amer) 88.8 ml/min 09/24/21 19:25 Est GFR (Non-Af Amer) 76.6 ml/min 09/24/21 19:25 BUN/Creatinine Ratio 15.5 (10-20) 09/24/21 19:25 Glucose 102 mg/dl (70-99(Fasting)) H 09/24/21 19:25 Calcium 9.4 mg/dl (8.5-10.1) 09/24/21 19:25 Magnesium 2.1 mg/dl (1.7-2.4) 09/24/21 19:25 Total Bilirubin 0.5 mg/dl (0.2-1.0) 09/24/21 19:25 AST 18 U/L (13-39) 09/24/21 19:25 ALT 14 U/L (7-52) 09/24/21 19:25 Alkaline Phosphatase 148 U/L (34-104) H 09/24/21 19:25 Troponin I High Sens 8.0 pg/ml (0-20) 09/24/21 19:25 Total Protein 7.8 gm/dl (6.0-8.3) 09/24/21 19:25 Albumin 4.1 gm/dl (3.4-5.0) 09/24/21 19:25 Globulin 3.7 gm/dl (2.5-4.0) 09/24/21 19:25 Albumin/Globulin Ratio 1.1 (0.9-2) 09/24/21 19:25 TSH 2.179 uIu/ml (0.300-4.500) 09/24/21 19:25 Prolactin 6.39 ng/ml 09/24/21 19:25 SARS-CoV-2, RNA, NAAT NEGATIVE (NEGATIVE) 09/24/21 19:10 Diagnostic Findings [facility] Patient: SAMANTHA LENTZ (Male) : 47 Status: ER Date: 09/24/21 20:43 Room #: History: HX CVA DIZZINESS Slices: 75 Priors: Christine: Emile Palacios @ [phone] Exams: CT HEAD Contrast: Accession Numbers: [id number] Referring Physician: REFERRED SELF Preliminary Findings Only See Final Report For Complete Findings CT HEAD: No acute abnormality. Compared to 09/18/2021. No acute intracranial hemorrhage or abnormal extra-axial fluid collection. No acute stroke. Old right posterior temporal-parietal infarct with the patient of the occipital horn. Severe confluent non-specific white matter changes, most commonly seen with small vessel disease. Age-appropriate peripheral atrophy. Ventricles are diffusely prominent, unchanged. No midline shift. No paranasal sinus air-fluid level. No fracture. Radiologist: Agustin Arrieta M.D. Study ready at 20:48 and initial results transmitted at 21:06 *This report constitutes a preliminary interpretation only. Non-acute findings felt to be unrelated to the clinical presentation may not be discussed in this report. The study will be interpreted and a final report will be generated by the local Radiologist the following shift. To reach the [facility] radiology department call [phone]. If a discrepancy is found between the preliminary and final interpretations of this study, please notify us via our Client Portal at [email or web address], under QA Exams. You can also fax this report with a description of the discrepancy, or include the final report, to our daytime fax number [phone]. If faxing, please indicate the severity of discrepancy using one of the following categories: [ ] 1 - Agree/Informational [ ] 2 - Unlikely to Affect Management [ ] 3 - Possible Eventual Change of Management [ ] 4 - Probable Immediate Change of Management For all other patient related information Code Status & VTE Plan Code Status DNR/DNI VTE Prophylaxis Plan VTE Prophylaxis will be ordered: Yes PG Care Time/CCT Total # of Minutes Spent Total Time Spent with Patient: Total time spent is greater than 50% in coordination of care (as documented) at patient's floor/unit and/or counseling patient: Coding Level of Care Code 47947 Initial Inpt Care Lvl 3 Diagnoses Seizure-like activity R56.9 Dementia G20; F02.80 Dementia behavioral disturbance: without behavioral disturbance Dementia type: Parkinson's disease History of CVA (cerebrovascular accident) Z86.73 Hyperlipidemia E78.5 BARBARA (obstructive sleep apnea) G47.33 Atrial fibrillation with RVR I48.91 BPH (benign prostatic hyperplasia) N40.0 (1) Dementia Dementia behavioral disturbance: without behavioral disturbance Dementia type: Parkinson's disease Qualified Code(s): G20 - Parkinson's disease; F02.80 - Dementia in other diseases classified elsewhere without behavioral disturbance
[2021-09-25] MEDS ORDERED: bisacodyL 10 MG SUPP PR PRN (00:02)
[2021-09-25] MEDS ORDERED: ACETAMINOPHEN 500 MG TAB PO PRN (00:02)
[2021-09-25] MEDS ORDERED: DICLOFENAC SOD 1% GEL 100 GM TUBE EXT PRN (00:02)
[2021-09-25] MEDS ORDERED: CLOTRIMAZOLE 1% CR 15 GM TUBE TOP PRN (00:02)
[2021-09-25] MEDS ORDERED: NON-FORMULARY MEDICATION (Coenzyme Q10 [Coq-10] 100 mg Capsule) PO SCH (00:02)
[2021-09-25] MEDS ORDERED: NITROGLYCERIN SL 0.4 MG/TAB TAB SL PRN (00:02)
[2021-09-25] MEDS ORDERED: ONDANSETRON INJ 2 MG/ML 2 ML VIAL IV PRN (00:02)
[2021-09-25] MEDS: APIXABAN 5 MG TABLET PO SCH ×3 (01:40→20:52)
[2021-09-25] MEDS: MEMANTINE HCL 10 MG TAB PO SCH ×3 (01:41→20:52)
[2021-09-25] MEDS: DOCUSATE SODIUM 100 MG CAP PO SCH ×3 (01:41→20:54)
--- NOTE | 2021-09-25 07:08 | CT Scan Report ---
HEAD CT NONCONTRAST CT DOSE: 691.05 mGy.cm HISTORY: seizure TECHNIQUE: Multiaxial CT images of the head were performed without the use of intravenous contrast. A utomated exposure control was utilized for this study. A dose lowering technique was utilized adheri ng to the principles of ALARA. Comparison: Head CT 09/18/2021. Findings: The paranasal sinuses and mastoid air cells are clear. The calvarium and skull base are int act. There is no mass, hematoma, midline shift, acute infarct. White matter hypodensity is nonspecifi c but suggestive of microvascular ischemic change. The ventricles and sulci demonstrate mild age-rela rachael involutional changes. Asymmetric enlargement of the lateral ventricles remains unchanged. Impression: No significant change compared to the prior study. No acute intracranial abnormality. ACT 112: Negative or not required by law. Electronically signed by: Terrence Huizar M.D. 09/25/2021 7:06 AM
[2021-09-25 07:50] LABS: Basophils # (auto) 0.05 K/uL (0-0.2); Basophils % (auto) 0.8 %; Eosinophils # (auto) 0.17 K/uL (0-0.50); Eosinophils % (auto) 2.6 %; Hematocrit (blood only) 41.3 % (40.1-51.0); Hemoglobin 13.1 g/dl (14.0-18.0); Immature Granulocytes # (auto) 0.02 K/uL (0.00-0.02); Immature Granulocytes % (auto) 0.3 %; Lymphocytes % (auto) 30.4 %; Mean Corpuscular Hemoglobin 29.7 pg (25.0-34.0); Mean Corpuscular Hgb Conc 31.7 g/dL (32.0-36.0); Mean Corpuscular Volume 93.7 fL (80.0-100.0); Mean Platelet Volume 10.2 fL (9.4-12.4); Monocytes # (auto) 0.52 K/uL (0.24-0.82); Monocytes % (auto) 7.9 %; Neutrophils # (auto) 3.82 K/uL (1.4-6.5); Platelet Count 178 K/uL (130-400); RDW Coefficient of Variation 14.6 % (11.5-14.5); RDW Standard Deviation 50.4 fL (36.4-46.3); Red Blood Count 4.41 M/uL (4.63-6.08); White Blood Count 6.58 K/ul (4.8-10.8)
--- NOTE | 2021-09-25 07:54 | Magnetic Resonance Report ---
Brain MRI WITHOUT CONTRAST HISTORY: new onset seizure like activity TECHNIQUE: Multiplanar multisequence MRI of the brain was performed without the use of contrast. COMPARISON STUDY: Head CT 09/24/2021. FINDINGS: Significant motion artifact resulting in near nondiagnostic evaluation of the brain. No def inite areas restricted diffusion to suggest acute infarction. The midline structures appear grossly i ntact. The major vascular flow-voids at the skull base appear maintained. The paranasal sinuses and m astoid air cells are clear. No definite mass, hematoma, midline shift. Moderate to severe ventriculom egaly with periventricular T2 hyperintensity is again noted. This raises the possibility of normal pr essure hydrocephalus versus chronic volume loss. IMPRESSION: 1. Near nondiagnostic evaluation due to the extensive motion artifact. 2. No definite acute infarct or intracranial hemorrhage. 3. No change in the hydrocephalus, diffuse atrophy, and microvascular ischemic changes. This raises t he possibility of normal pressure hydrocephalus. ACT 112: Negative or not required by law. Electronically signed by: Terrence Huizar M.D. 09/25/2021 7:52 AM
[2021-09-25 08:13] LABS: Albumin Globulin Ratio 1.1 (0.9-2); Albumin Level 3.4 gm/dl (3.4-5.0); BUN Creatinine Ratio 13.8 (10-20); Bilirubin,Total 0.6 mg/dl (0.2-1.0); Calcium 8.8 mg/dl (8.5-10.1); Creatinine Clr Calc Pharmacy 76.9 ml/min; Est GFR (African American) 98.5 ml/min; Globulin 3.2 gm/dl (2.5-4.0); Potassium 3.9 mmol/L (3.5-5.1); Total Protein 6.6 gm/dl (6.0-8.3)
[2021-09-25] MEDS: levETIRAcetam 500 MG in 0.9 % SODIUM CHLORIDE 100 ML IV SCH ×2 (08:24→20:51)
[2021-09-25] MEDS: METOPROLOL TARTRATE 25 MG TAB PO SCH ×2 (08:25→20:52)
[2021-09-25] MEDS: dilTIAZem HCL 180 MG CAPCR PO SCH (08:26)
[2021-09-25] MEDS: ASPIRIN 81 MG ECTAB PO SCH (08:27)
[2021-09-25] MEDS: CYANOCOBALAMIN (B-12) 500 MCG TABLET PO SCH (08:27)
[2021-09-25] MEDS: RIVASTIGMINE TARTRATE 1.5 MG CAP PO SCH (08:31)
[2021-09-25] MEDS: NYSTATIN POWDER 15GM BTL EXT SCH ×4 (08:33→20:53)
[2021-09-25] MEDS: POLYETHYLENE (MIRALAX) 17 GM PACK PO SCH (08:44)
--- NOTE | 2021-09-25 09:12 | Electrocardiogram Report ---
Test Reason : Blood Pressure : / mmHG Vent. Rate : 083 BPM Atrial Rate : 082 BPM P-R Int : 000 ms QRS Dur : 086 ms QT Int : 396 ms P-R-T Axes : 000 -23 145 degrees QTc Int : 465 ms Atrial fibrillation with variable ventricular rate Left ventricular hypertrophy with repolarization abnormality Abnormal ECG When compared with ECG of 18-SEP-2021 21:05, No significant change was found Confirmed by Parvez Thornton ([id number]) on 09/25/2021 9:12:08 AM Referred By: REFERRED SELF Confirmed By:Parvez Thornton
--- NOTE | 2021-09-25 13:31 | XCELERA ---
[id number] \\[id number]
--- NOTE | 2021-09-25 20:37 | Hospitalist Progress Note ---
Date of Service September 25, 2021 Assessment & Plan (1) Seizure-like activity: Plan: Staring spells. Myoclonic type jerking with altered mental status. Recurrent episodes before presentation. Was given Keppra 2000 mg IV in ED. Will continue 500 mg IV every 12 hours until seen by neurology. 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 Very large vents on MRI. No acute CVA. Risk factors for seizure - prior CVA, dementia, etc. EEG ordered for am. Consult [facility] Neurology for additional opinions. Regarding large vents - ?NPH - however, in light of advanced dementia, not sure pursuing therapeutic LP would add benefit. Defer to neuro. Cont seizure precautions. No evidence of any infectious process at this time. (2) Dementia: Plan: Continue memantine and rivastigmine Advanced See #1 above (3) History of CVA (cerebrovascular accident): Plan: no acute CVA seen on MRI (4) Hyperlipidemia: (5) BARBARA (obstructive sleep apnea): Plan: CPAP at bedtime (6) Atrial fibrillation with RVR: Plan: Continue apixaban and diltiazem extended release rates controlled (7) BPH (benign prostatic hyperplasia): Plan: Continue tamsulosin Plan DVT proph - eliquis I spoke with by phone this pm and updated her Admission and Anticipated Discharge Date Admission Date: September 24, 2021 Subjective tele stable overnight rate controlled a.fib only per staff no seizure or seizure like activity eating fair during my visit he could offer no meaningful history or ROS due to his severe dementia at one point he said "I live with my sisters" (he lives w/ his ) Review of Systems Review of Systems: Unobtainable due to cognitive status Physical Exam Physical Exam: gen - NAD, oriented to person only neck - no JVD mouth - Lips dry heart - irregularly irregular, s1 s2, no murmur lungs - CTA b/l, decreased BS bases abd - softly distended, BS+, NT ext - trace edema, pulses 2+ b/l neuro - increased tone all 4 exts; masked facies Results & Data Results & Data ([facility]) Vital Signs (Past 12 Hours) Vital Signs Temp Pulse Pulse Resp BP Pulse Ox O2 Del Method 09/25/21 18:24 36.8 C 77 16 104/69 98 09/25/21 16:07 Room Air 09/25/21 15:25 36.7 C 74 20 121/74 97 09/25/21 15:12 86 09/25/21 11:00 36.8 C 69 20 137/71 97 Laboratory Results Laboratory Results - last 24 hr 09/25/21 09/25/21 07:19 07:19 WBC 6.58 RBC 4.41 L Hgb 13.1 L Hct 41.3 MCV 93.7 MCH 29.7 MCHC 31.7 L RDW Std Deviation 50.4 H RDW Coeff of Alex 14.6 H Plt Count 178 MPV 10.2 Immature Gran % (Auto) 0.3 Neut % (Auto) 58.0 Lymph % (Auto) 30.4 [place] % (Auto) 7.9 Eos % (Auto) 2.6 Baso % (Auto) 0.8 Neut # (Auto) 3.82 Lymph # (Auto) 2.00 [place] # (Auto) 0.52 Eos # (Auto) 0.17 Baso # (Auto) 0.05 Immature Gran # (Auto) 0.02 Sodium 140 Potassium 3.9 Chloride 109 H Carbon Dioxide 25 Anion Gap 6 BUN 12 Creatinine 0.87 Est Cr Clr Drug Dosing 76.9 Est GFR ( Amer) 98.5 Est GFR (Non-Af Amer) 85.0 BUN/Creatinine Ratio 13.8 Glucose 88 Calcium 8.8 Magnesium 2.0 Total Bilirubin 0.6 AST 16 ALT 12 Alkaline Phosphatase 121 H Total Protein 6.6 Albumin 3.4 Globulin 3.2 Albumin/Globulin Ratio 1.1 Diagnostic Findings MRI brain with very large ventricles no acute CVA no ICH PG Care Time/CCT Total # of Minutes Spent Total Time Spent with Patient: Total time spent is greater than 50% in coordination of care (as documented) at patient's floor/unit and/or counseling patient: Coding Level of Care Code 22096 Subseq Hosp Care Lvl 2 Diagnoses Seizure-like activity R56.9 Dementia G20; F02.80 Dementia behavioral disturbance: without behavioral disturbance Dementia type: Parkinson's disease History of CVA (cerebrovascular accident) Z86.73 Hyperlipidemia E78.5 BARBARA (obstructive sleep apnea) G47.33 Atrial fibrillation with RVR I48.91 BPH (benign prostatic hyperplasia) N40.0 (1) Dementia Dementia behavioral disturbance: without behavioral disturbance Dementia type: Parkinson's disease Qualified Code(s): G20 - Parkinson's disease; F02.80 - Dementia in other diseases classified elsewhere without behavioral disturbance
[2021-09-25] MEDS: TAMSULOSIN HCL 0.4 MG CAP PO SCH (20:53)
[2021-09-25] MEDS: CHOLECALCIFEROL 1,000 UNITS 25 MCG TAB PO SCH (20:54)
[2021-09-26 06:04] LABS: Basophils # (auto) 0.07 K/uL (0-0.2); Eosinophils # (auto) 0.17 K/uL (0-0.50); Eosinophils % (auto) 2.5 %; Hematocrit (blood only) 41.4 % (40.1-51.0); Hemoglobin 13.5 g/dl (14.0-18.0); Immature Granulocytes # (auto) 0.02 K/uL (0.00-0.02); Immature Granulocytes % (auto) 0.3 %; Lymphocytes # (auto) 2.12 K/uL (1.2-3.4); Lymphocytes % (auto) 31.5 %; Mean Corpuscular Hemoglobin 29.9 pg (25.0-34.0); Mean Corpuscular Hgb Conc 32.6 g/dL (32.0-36.0); Mean Corpuscular Volume 91.8 fL (80.0-100.0); Mean Platelet Volume 10.4 fL (9.4-12.4); Monocytes # (auto) 0.49 K/uL (0.24-0.82); Monocytes % (auto) 7.3 %; Neutrophils # (auto) 3.86 K/uL (1.4-6.5); Neutrophils % (auto) 57.4 %; Platelet Count 188 K/uL (130-400); RDW Coefficient of Variation 14.4 % (11.5-14.5); RDW Standard Deviation 48.6 fL (36.4-46.3); Red Blood Count 4.51 M/uL (4.63-6.08); White Blood Count 6.73 K/ul (4.8-10.8)
[2021-09-26 06:27] LABS: Albumin Level 3.5 gm/dl (3.4-5.0); BUN Creatinine Ratio 12.9 (10-20); Bilirubin,Total 0.8 mg/dl (0.2-1.0); Calcium 8.9 mg/dl (8.5-10.1); Creatinine Clr Calc Pharmacy 89.2 ml/min; Est GFR (African American) 99.5 ml/min; Est GFR (Non-African American) 85.8 ml/min; Globulin 3.5 gm/dl (2.5-4.0); Magnesium 1.9 mg/dl (1.7-2.4)
[2021-09-26] MEDS: APIXABAN 5 MG TABLET PO SCH ×2 (08:28→19:53)
[2021-09-26] MEDS: RIVASTIGMINE TARTRATE 1.5 MG CAP PO SCH (08:28)
[2021-09-26] MEDS: METOPROLOL TARTRATE 25 MG TAB PO SCH ×2 (08:28→19:53)
[2021-09-26] MEDS: ASPIRIN 81 MG ECTAB PO SCH (08:28)
[2021-09-26] MEDS: DOCUSATE SODIUM 100 MG CAP PO SCH ×2 (08:28→19:54)
[2021-09-26] MEDS: MEMANTINE HCL 10 MG TAB PO SCH ×2 (08:28→19:54)
[2021-09-26] MEDS: CYANOCOBALAMIN (B-12) 500 MCG TABLET PO SCH (08:28)
[2021-09-26] MEDS: dilTIAZem HCL 180 MG CAPCR PO SCH (08:28)
[2021-09-26] MEDS: levETIRAcetam 500 MG in 0.9 % SODIUM CHLORIDE 100 ML IV SCH ×2 (08:29→20:44)
[2021-09-26] MEDS: POLYETHYLENE (MIRALAX) 17 GM PACK PO SCH (08:29)
[2021-09-26] MEDS: NYSTATIN POWDER 15GM BTL EXT SCH ×4 (08:36→21:19)
--- NOTE | 2021-09-26 08:46 | Neurology Consultation ---
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 NPH may not be completely excluded although for the last neurosurgical report from 2016, patient and spouse were not really interested in pursuing surgical treatment and opted to defer on further NPH evaluations. Patient now presents with progressive decline, intermittent myoclonic jerking, has actually been an ongoing problem over the past year. Myoclonic seizures not excluded. Keppra has been started, should continue with this medication, 500 mg IV every 12 hours, transition to tablets at discretion of primary care team. An EEG has been ordered, I will review when study has been completed. Continue with memantine and rivastigmine. Patient has been on rivastigmine for many years and I doubt this medication is responsible for the observed myoclonic j erking. Although this patient does have hydrocephalus, possibly normal pressure hydrocephalus, this issue has been evaluated multiple times by neurosurgery in the past. He also has a significant mixed dementia with evidence of Alzheimer's type pathology on a previous amyloid PET scan. Last neurosurgery note from [facility] indicated that he had already undergone high-volume lumbar puncture without any change in symptoms. Family was not interested in pursuing additional evaluations in this regard which I think is reasonable, especially in light of his advanced dementia. PURCHASE ANALYST shunting or third ventriculostomy would not likely provide significant benefit, relative to risk of this procedure. If patient's clinical status and myoclonic jerking improve then it may be appropriate to have him return to home with his spouse. He is dependent for all ADLs. He may continue to follow in the outpatient [facility] neurology clinic, 3 to 4 weeks from discharge, may be seen by myself or Gladis Hanson PA-C who has seen him previously. History of Present Illness Reason for Consultation: Seizure-like activity Requesting Physician: Jez Tucker MD Attending Physician: Jez Tucker History of Present Illness The patient is a 75-year-old male who is known to the [facility] neurology service, last seen by Gladis Hanson PA-C, July 07, 2021, has previously followed with Dr. Moncada for mixed dementia, vascular, Alzheimer's type pathology, history also notable for a chronic stroke with residual left-sided weakness and neglect occurring in 2010, peripheral neuropathy, and parkinsonism. He has been on Namenda and Exelon for management of his dementia as well as Eliquis and daily low-dose aspirin in the context of his history of stroke. He has been living at home with his spouse who is his primary caregiver. He has been exhibiting intermittent myoclonic jerking movements of the limbs which has been an ongoing problem. His previous imaging has suggested significant enlargement of the lateral ventricles most likely consistent with ex vacuo dilatation rather than NPH, has been evaluated by neurosurgery in the past. Is also had a prev ious dementia evaluation including amyloid PET scan in 2016 that suggested Alzheimer's type pathology, occurring in the context of a probable vascular dementia as well. He is also been treated for vitamin B12 deficiency. He had presented to the [facility] emergency department September 18, 2021 for altered mental status, greater than baseline. Had a follow-up with his PCP on September 23, 2021, overall, felt to have ongoing progression from his underlying dementia. Presented again to the emergency department September 24, 2021 for weakness, progressive alteration in mental status. Spouse is also noted staring spells as well as sudden quick movements of the head, duration about 30 seconds, followed by resolution, concern for seizures. Hospitalist physician aware of these episodes, staring spells, myoclonic type jerking with associated altered mental status. Patient has been given Keppra 2000 mg IV in the emergency department, with plan to continue 500 mg IV every [address] of the head and brain MRI have been negative for acute process, although again, reveal significant enlargement of the lateral ventricles, chronic stable issue. There is an old right posterior temporoparietal infarct. EEG has been ordered. Patient is unable to provide any reliable history in light of his advanced dementia. Allergies Allergy/AdvReac Type Severity Reaction Status Date / Time isopropyl alcohol Allergy Severe RUBBING Verified 09/24/21 19:52 ALCOHOL - SHORTNESS OF BREATH adhesive Allergy Intermediate BLISTERS Verified 09/24/21 19:52 escitalopram Allergy Unknown UNSURE-DOES Verified 09/24/21 19:52 NOT KNOW oxycodone AdvReac Mild CONFUSION Verified 09/24/21 19:52 lisinopril AdvReac Unknown elevated Verified 09/24/21 19:52 creatinine Home Medications Medication Instructions Recorded Confirmed Type cholecalciferol (vitamin D3) 25 1,000 unit PO HS 02/13/18 09/24/21 History mcg (1,000 unit) capsule (Vitamin D3) coenzyme Q10 100 mg capsule 100 mg PO BID 02/13/18 09/24/21 History (CoQ-10) polyethylene glycol 3350 17 17 g PO QAM 06/04/20 09/24/21 History gram/dose oral powder (Miralax) acetaminophen 500 mg tablet 1,000 mg PO BID Pain #120 tabs 06/14/20 09/24/21 Rx (Tylenol Extra Strength) memantine 10 mg tablet (Namenda) 10 mg PO BID #180 tabs 06/14/20 09/24/21 Rx disposable gloves (Disposable #1,000 ea 07/21/20 09/23/21 Rx Latex-Free Gloves) aspirin 81 mg tablet,delayed 81 mg PO QAM #90 tabs 09/08/20 09/24/21 Rx release (Pieter Low Dose Aspirin) tamsulosin 0.4 mg capsule (Flomax) 0.4 mg PO HS #90 caps 11/22/20 09/24/21 Rx metoprolol tartrate 25 mg tablet 25 mg PO BID #180 tabs 12/15/20 09/24/21 Rx bisacodyl 10 mg rectal suppository 10 mg WI DAILY PRN Constipation 12/28/20 09/24/21 History (Dulcolax (bisacodyl)) docusate sodium 100 mg capsule 100 mg PO BID 12/28/20 09/24/21 History (Colace) rivastigmine tartrate 3 mg capsule 3 mg PO QAM 12/31/20 09/24/21 History diclofenac sodium 1 % topical gel 4 g EXT QID PRN pain #100 grams 04/15/21 09/24/21 Rx (Voltaren Arthritis Pain) nitroglycerin 0.4 mg sublingual 0.4 mg sublingual Q5M PRN chest 04/19/21 09/24/21 Rx tablet pain #25 tabs diltiazem HCl 180 mg 180 mg PO QAM #90 caps 05/04/21 09/24/21 Rx capsule,extended release 24 hr finger splint #2 ea 05/19/21 09/23/21 Rx cyanocobalamin (vitamin B-12) 1,000 mcg PO DAILY #30 caps 06/30/21 09/24/21 Rx 1,000 mcg capsule clotrimazole 1 % topical cream 1 applic topical BID PRN Skin 07/28/21 09/24/21 History Irritation d-mannose 500 mg capsule 1,000 mg PO QAM 07/28/21 09/24/21 History nystatin 100,000 unit/gram topical 1 applic topical QID #60 grams 07/28/21 09/24/21 Rx powder apixaban 5 mg tablet (Eliquis) 5 mg PO BID #180 tabs 09/13/21 09/24/21 Rx Patient History Medical History Acute hypotension Acute kidney injury Acute urinary retention Atrial fibrillation with RVR CAD (coronary artery disease) CAD (coronary artery disease) CHF (congestive heart failure) Closed fracture of radial head Constipation CVA (cerebral vascular accident) Gastroesophageal reflux disease Hyperlipidemia Hypertension Ileus Nephrolithiasis BARBARA (obstructive sleep apnea) Small bowel obstruction Symptomatic bradycardia Urinary retention Surgical History History of knee replacement History of PTCA Family History Father Stroke Mother Myocardial infarction Aunt Diabetes Family/Other Heart disease Hypertension Nephrolithiasis Other Dementia Denies family history of Prostate cancer Social History Smoking Status: Never smoker Second Hand Exposure: No; Do You Dip or Chew Tobacco: No; Tobacco Cessation Education Requested by Patient: No Hx Alcohol Use: No Hx Substance Use: No Preferred Language: Eritrean Communication Ability: Impaired Visual Impairment: Limited Hearing Ability: Normal Financial Systems Director Required: No Beliefs That Will Affect Care: None marital status: Current Living Situation: Spouse current occupational status: retired How many Children do You have: 1 Other Information That Helps Us Care for You: No Feels Safe at Home: Yes Safety Concerns: Feels Safe At This Time Childhood Exposure to Second-Hand Smoke: Yes caffeine: No Physical Activity Frequency: Does not Exercise Seatbelt Use: always Sunscreen Use: No (not in the sun) Assistive Devices: Denture - Upper and Denture - Lower Review of Systems Review of Systems: Unobtainable due to cognitive status Exam (Neuro) Constitutional: + behavioral limitations Eyes: PERRL and EOM intact bilaterally Cardiovascular: Vessels: normal carotid upstroke; no carotid bruit Neurologic: Oriented to:: negative Person, Place or Time Cognitive Function: negative Attention or Concentration Cortical Function: Neglect of Body Part Memory: negative Short Term Intact or Remote Intact Attention: negative Span Intact or Concentration Intact Speech Fluency: Slowed; negative Dysarthria Fund of Knowledge: Vocabulary; negative Current Events or Past History Cranial Nerves: Normal II, III, IV, , V, VII, VIII, IX, X, XI and XII Motor Strength: negative Normal Lower Extremities or Normal Upper Extremities Rigidity: None Spasticity: None Muscle Bulk/Involuntary Movements: No Involuntary Movements Sensation: Light Touch Intact, Pain/Temperature Intact and Vibration Intact Coordination: negative Dysdiadochokinesia, Finger-Nose Abnormal or Heel-Bruce Abnormal Deep Tendon Reflexes: Rt Triceps: 1+, Lt Triceps: 1+, Rt Biceps: 1+, Lt Biceps: 1+, Rt Brachioradialis: 1+, Lt Brachioradialis: 1+, Rt Patellar: 1+, Lt Patellar: 1+, Rt Ankle: 0 and Lt Ankle: 0 Special Tests: negative Babinski Present Details: Gait could not be tested. Patient is lying relatively motionless in bed, he ope ns his eyes to voice, he is inattentive. He will only follow very simple commands such as hand grasping on the right. Left upper limb seems flaccid. He is unable to move either lower extremity to command. He does not exhibit tremors or abnormal movements at this time. He is slow, abulic. He is quite inattentive and is difficult to assess his visual dale or acuity. Unable to perform direct ophthalmoscopic examination due to poor patient cooperation. Results & Data ([facility]) Vital Signs (Past 12 Hours) Vital Signs Temp Pulse Pulse Resp BP Pulse Ox O2 Del Method 09/26/21 07:17 90 09/26/21 07:05 36.5 C 90 18 134/85 96 Room Air 09/26/21 03:54 36.6 C 82 18 146/80 H 97 Room Air 09/25/21 23:35 36.7 C 80 18 126/80 96 Room Air Laboratory Results WBC 6.73, hemoglobin 13.5, hematocrit 41.4, MCV 91.8, platelet count 188, sodium 137, potassium 4.0, BUN 11, creatinine 0.85, glucose 83, calcium 8.9, magnesium 1.9, AST 17, ALT 12, TSH 2.179, prolactin 6.39, Vitamin B12 from this past March was [address] of the head no hemorrhage or acute process, there is ex vacuo ventricular dilatation, there is chronic small vessel ischemic disease, right greater than left. Imaging stable compared with prior studies over the previous year. Brain MRI compromised by motion artifact, no areas of restricted diffusion suggestive of acute or subacute infarct, no blooming artifact suggestive of hemorrhage. No change in the previously identified ex vacuo ventriculomegaly/hydrocephalus, diffuse atrophy chronic microvascular ischemic disease. Possibility of NPH suggested by interpreting radiologist. I did independently review the images and agree with the findings as described above. An echocardiogram completed yesterday was negative for interatrial shunt, technically limited study, normal left ventricular structure and function, EF 60 to 65%, mild concentric left ventricular hypertrophy, mild aortic regurgitation, left atrium moderately dilated. An electrocardiogram revealed atrial fibrillation with variable ventricular rate. Coding Level of Care Code 71603 Initial In Care Lvl 3 Diagnoses Dementia F03.90 Dementia behavioral disturbance: without behavioral disturbance Dementia type: unspecified type History of stroke Z86.73 Seizure-like activity R56.9 Hydrocephalus ex vacuo G91.8 (1) Dementia Dementia behavioral disturbance: without behavioral disturbance Dementia type: unspecified type Qualified Code(s): F03.90 - Unspecified dementia without behavioral disturbance
--- NOTE | 2021-09-26 13:16 | Electroencephalogram ---
EEG Procedure Note Date of Service September 26, 2021 Start / End Times Start Time: 12:29 PM End Time: 12:[address] Tucker History Seizure-like movements, myoclonic jerking, dementia Home Medication List Medication Instructions Recorded Confirmed Type cholecalciferol (vitamin D3) 25 1,000 unit PO HS 02/13/18 09/24/21 History mcg (1,000 unit) capsule (Vitamin D3) coenzyme Q10 100 mg capsule 100 mg PO BID 02/13/18 09/24/21 History (CoQ-10) polyethylene glycol 3350 17 17 g PO QAM 06/04/20 09/24/21 History gram/dose oral powder (Miralax) acetaminophen 500 mg tablet 1,000 mg PO BID Pain #120 tabs 06/14/20 09/24/21 Rx (Tylenol Extra Strength) memantine 10 mg tablet (Namenda) 10 mg PO BID #180 tabs 06/14/20 09/24/21 Rx disposable gloves (Disposable #1,000 ea 07/21/20 09/23/21 Rx Latex-Free Gloves) aspirin 81 mg tablet,delayed 81 mg PO QAM #90 tabs 09/08/20 09/24/21 Rx release (Pieter Low Dose Aspirin) tamsulosin 0.4 mg capsule (Flomax) 0.4 mg PO HS #90 caps 11/22/20 09/24/21 Rx metoprolol tartrate 25 mg tablet 25 mg PO BID #180 tabs 12/15/20 09/24/21 Rx bisacodyl 10 mg rectal suppository 10 mg [place] DAILY PRN Constipation 12/28/20 09/24/21 History (Dulcolax (bisacodyl)) docusate sodium 100 mg capsule 100 mg PO BID 12/28/20 09/24/21 History (Colace) rivastigmine tartrate 3 mg capsule 3 mg PO QAM 12/31/20 09/24/21 History diclofenac sodium 1 % topical gel 4 g EXT QID PRN pain #100 grams 04/15/21 Rx (Voltaren Arthritis Pain) nitroglycerin 0.4 mg sublingual 0.4 mg sublingual Q5M PRN chest 04/19/21 09/24/21 Rx tablet pain #25 tabs diltiazem HCl 180 mg 180 mg PO QAM #90 caps 05/04/21 09/24/21 Rx capsule,extended release 24 hr finger splint #2 ea 05/19/21 09/23/21 Rx cyanocobalamin (vitamin B-12) 1,000 mcg PO DAILY #30 caps 06/30/21 09/24/21 Rx 1,000 mcg capsule clotrimazole 1 % topical cream 1 applic topical BID PRN Skin 07/28/21 09/24/21 History Irritation d-mannose 500 mg capsule 1,000 mg PO QAM 07/28/21 09/24/21 History nystatin 100,000 unit/gram topical 1 applic topical QID #60 grams 07/28/21 09/24/21 Rx powder apixaban 5 mg tablet (Eliquis) 5 mg PO BID #180 tabs 09/13/21 09/24/21 Rx Inpatient Medication List Apixaban (Apixaban 5 Mg Tablet) 5 mg PO BID [facility] Stop: 10/25/21 00:01 Last Admin: 09/26/21 08:28 Dose: 5 mg Documented By: Admin: 09/25/21 20:52 Dose: 5 mg Documented By: Admin: 09/25/21 08:24 Dose: 5 mg Documented By: Admin: 09/25/21 01:40 Dose: 5 mg Documented By: DINA Aspirin (Aspirin 81 Mg Ectab) 81 mg PO QAM [facility] Stop: 10/25/21 08:59 Last Admin: 09/26/21 08:28 Dose: 81 mg Documented By: Admin: 09/25/21 08:27 Dose: 81 mg Documented By: SHARON Cyanocobalamin (Cyanocobalamin (B-12) 500 Mcg Tablet) 1,000 mcg PO DAILY AN[facility]IO Stop: 10/25/21 08:59 Last Admin: 09/26/21 08:28 Dose: 1,000 mcg Documented By: Admin: 09/25/21 08:27 Dose: 1,000 mcg Documented By: SHARON Diltiazem HCl (Diltiazem Hcl 180 Mg Capcr) 180 mg PO QAM ANTONIO Stop: 10/25/21 08:59 Last Admin: 09/26/21 08:28 Dose: 180 mg Documented By: Admin: 09/25/21 08:26 Dose: 180 mg Documented By: SHARON Docusate Sodium (Docusate Sodium 100 Mg Cap) 100 mg PO BID AN[facility]IO Stop: 10/25/21 00:01 Last Admin: 09/26/21 08:28 Dose: 100 mg Documented By: Admin: 09/25/21 20:54 Dose: 100 mg Documented By: Admin: 09/25/21 08:34 Dose: 100 mg Documented By: Admin: 09/25/21 01:41 Dose: 100 mg Documented By: DINA Levetiracetam 500 mg/ Sodium (Chloride) 105 mls @ 420 mls/hr IV Q12H AN[facility]IO Stop: 10/25/21 07:59 Last Infusion: 09/26/21 08:53 Dose: 0 mls/hr Documented By: Admin: 09/26/21 08:29 Dose: 420 mls/hr Documented By: Infusion: 09/25/21 21:09 Dose: 0 mls/hr Documented By: Admin: 09/25/21 20:51 Dose: 420 mls/hr Documented By: Infusion: 09/25/21 08:44 Dose: 0 mls/hr Documented By: Admin: 09/25/21 08:24 Dose: 420 mls/hr Documented By: SHARON Memantine (Memantine Hcl 10 Mg Tab) 10 mg PO BID AN[facility]IO Stop: 10/25/21 00:01 Last Admin: 09/26/21 08:28 Dose: 10 mg Documented By: Admin: 09/25/21 20:52 Dose: 10 mg Documented By: Admin: 09/25/21 08:44 Dose: Not Given Documented By: Admin: 09/25/21 01:41 Dose: 10 mg Documented By: DINA Metoprolol Tartrate (Metoprolol Tartrate 25 Mg Tab) 25 mg PO BID ANTONIO Stop: 10/25/21 08:59 Last Admin: 09/26/21 08:28 Dose: 25 mg Documented By: Admin: 09/25/21 20:52 Dose: 25 mg Documented By: Admin: 09/25/21 08:25 Dose: 25 mg Documented By: SHARON Nystatin (Nystatin Powder 15gm Btl) 1 appln EXT QID [facility]IO Stop: 10/25/21 08:59 Last Admin: 09/26/21 12:05 Dose: 1 appln Documented By: Admin: 09/26/21 08:36 Dose: 1 appln Documented By: Admin: 09/25/21 20:53 Dose: 1 appln Documented By: Admin: 09/25/21 16:01 Dose: 1 appln Documented By: Admin: 09/25/21 13:47 Dose: 1 appln Documented By: Admin: 09/25/21 08:33 Dose: 1 appln Documented By: SHARON Polyethylene Glycol (Polyethylene (Miralax) 17 Gm Pack) 17 gm PO QAM [facility] Stop: 10/25/21 08:59 Last Admin: 09/26/21 08:29 Dose: 17 gm Documented By: Admin: 09/25/21 08:44 Dose: 17 gm Documented By: SHARON Rivastigmine Tartrate (Rivastigmine Tartrate 1.5 Mg Cap) [facility] Stop: 10/25/21 08:59 Last Admin: 09/26/21 08:28 Dose: 3 mg Documented By: Admin: 09/25/21 08:31 Dose: 3 mg Documented By: SHARON Tamsulosin HCl (Tamsulosin Hcl 0.4 Mg Cap) 0.4 mg PO [facility] Stop: 10/25/21 20:59 Last Admin: 09/25/21 20:53 Dose: 0.4 mg Documented By: DINA Vitamin D (Cholecalciferol 1,000 Units 25 Mcg Tab) 1,000 units PO [facility] Stop: 10/25/21 20:59 Last Admin: 09/25/21 20:54 Dose: 1,000 units Documented By: DINA Discontinued Medications Sodium Chloride (Nss) 500 mls @ 999 mls/hr IV .Q31M [facility]IO Stop: 09/24/21 19:30 Last Infusion: 09/24/21 19:49 Dose: 0 mls/hr Documented By: Admin: 09/24/21 19:17 Dose: 999 mls/hr Documented By: YEVGENIY Levetiracetam 2,000 mg/ Sodium (Chloride) 270 mls @ 999 mls/hr IV NOW STA Stop: 09/24/21 19:44 Last Infusion: 09/24/21 20:39 Dose: 0 mls/hr Documented By: Admin: 09/24/21 20:21 Dose: 999 mls/hr Documented By: YEVGENIY Description This is a 21 electrode EEG with a single channel dedicated to limited EKG. The electrodes were placed in accordance with the International 10-20 system. The predominant rhythm consists of generalized 4 to 5 Hz irregular theta slowing. There is intermittent movement artifact. A normal-appearing alpha rhythm was not observed. Photic stimulation is unremarkable. Hyperventilation is not performed. There is no focal slowing. There are no epileptiform abnormalities. Interpretation Abnormal awake/drowsy EEG with evidence of a nonspecific encephalopathy of moderate severity. No epileptiform abnormalities observed. [facility] EEG Procedure Codes Indication for Procedure (1) Seizure-like activity: (2) Dementia: (3) History of stroke: (4) Hydrocephalus ex vacuo: (5) Altered mental status: Neurology Neurology: 21532 EEG include record awake & drowsy
[2021-09-26] MEDS: TAMSULOSIN HCL 0.4 MG CAP PO SCH (19:53)
[2021-09-26] MEDS: CHOLECALCIFEROL 1,000 UNITS 25 MCG TAB PO SCH (19:54)
[2021-09-26] MEDS ORDERED: METOPROLOL TARTRATE 25 MG TAB PO ONE (20:30)
--- NOTE | 2021-09-26 21:53 | Hospitalist Progress Note ---
Date of Service September 26, 2021 Assessment & Plan (1) Seizure-like activity: Plan: Staring spells. Myoclonic type jerking with altered mental status. Recurrent episodes before presentation. Was given Keppra 2000 mg IV in ED. Will continue 500 mg BID - convert IV to PO. 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 Very large vents on MRI. No acute CVA. Risk factors for seizure - prior CVA, dementia, etc. EEG without seizure focus but this does not rule out seizures. Thus, [facility] [place] [facility] - Dr Diaz - advises to continue the keppra. Regarding large vents - has had diagnostic/ therapeutic LP in the past without any benefit in his neurological symptoms. No need to pursue anything further re: possible dx of NPH. See Dr Diaz's note. Cont seizure precautions. No evidence of any infectious process at this time. (2) Atrial fibrillation with RVR: Plan: Per records he has been on stable doses of diltiazem CD and metoprolol BID for quite some time. I am uncertain why he is running fast this evening. Due to agitation? I obtained repeat EKG - his ST segment changes anteroseptal are chronic (and, in fact, less prominent today than prior EKG). He is on chronic apixaban thus I do not suspect any acute PE. Recent TSH without any hyperthyroidism. Recent K and mag normal. He doesn't seem to be in pain. Increase metoprolol to 50mg BID. Cont cardizem CD 180mg daily. If needed could institute cardizem drip overnight and then simply increase his CCB in am. (3) Dementia: Plan: Continue memantine and rivastigmine Advanced See #1 above (4) History of CVA (cerebrovascular accident): Plan: no acute CVA seen on MRI (5) Hyperlipidemia: (6) BARBARA (obstructive sleep apnea): Plan: CPAP at bedtime (7) BPH (benign prostatic hyperplasia): Plan: Continue tamsulosin Plan DVT proph - eliquis pt's updated yesterday by phone speech eval requested re: concern of dysphagia home when a.fib is under control and speech has performed their eval Admission and Anticipated Discharge Date Admission Date: September 24, 2021 Subjective pt unable to offer any meaningful history or ROS staff report fair appetite some concern about his swallowing, however no seizure activity while visiting with him he kept saying "the pills", "they are giving me pills" late in the day he developed a.fib with RVR despite his usual meds he denied any pain in any location when he was having the rapid a.fib he did not appear overly agitated Review of Systems Review of Systems: Unobtainable due to cognitive status Physical Exam Physical Exam: gen - NAD, oriented to person only neck - no JVD mouth - Lips dry heart - irregularly irregular, tachy, s1 s2, no murmur lungs - CTA b/l, decreased BS bases abd - distended, BS+, NT, no HSM ext - trace edema, pulses 2+ b/l neuro - increased tone all 4 exts; masked facies psych - talking insensibly Results & Data Results & Data ([facility]) Vital Signs (Past 12 Hours) Vital Signs Temp Pulse Pulse Resp BP Pulse Ox O2 Del Method 09/26/21 19:48 36.4 C L 85 18 128/84 95 Room Air 09/26/21 16:27 73 09/26/21 16:00 36.5 C 87 20 108/74 97 09/26/21 12:01 36.5 C 83 18 119/80 97 Room Air Laboratory Results Laboratory Results - last 24 hr 09/26/21 09/26/21 05:42 05:42 WBC 6.73 RBC 4.51 L Hgb 13.5 L Hct 41.4 MCV 91.8 MCH 29.9 MCHC 32.6 RDW Std Deviation 48.6 H RDW Coeff of Alex 14.4 Plt Count 188 MPV 10.4 Immature Gran % (Auto) 0.3 Neut % (Auto) 57.4 Lymph % (Auto) 31.5 Lea % (Auto) 7.3 Eos % (Auto) 2.5 Baso % (Auto) 1.0 Neut # (Auto) 3.86 Lymph # (Auto) 2.12 Lea # (Auto) 0.49 Eos # (Auto) 0.17 Baso # (Auto) 0.07 Immature Gran # (Auto) 0.02 Sodium 137 Potassium 4.0 Chloride 105 Carbon Dioxide 23 Anion Gap 9 BUN 11 Creatinine 0.85 Est Cr Clr Drug Dosing 89.2 Est GFR ( Amer) 99.5 Est GFR (Non-Af Amer) 85.8 BUN/Creatinine Ratio 12.9 Glucose 83 Calcium 8.9 Magnesium 1.9 Total Bilirubin 0.8 AST 17 ALT 12 Alkaline Phosphatase 124 H Total Protein 7.0 Albumin 3.5 Globulin 3.5 Albumin/Globulin Ratio 1.0 Diagnostic Findings EEG - no focal epileptiform discharges; slowing noted c/w "encephalopathy." PG Care Time/CCT Total # of Minutes Spent Total Time Spent with Patient: Total time spent is greater than 50% in coordination of care (as documented) at patient's floor/unit and/or counseling patient: Coding Level of Care Code 14772 Subseq Hosp Care Lvl 2 Diagnoses Seizure-like activity R56.9 Atrial fibrillation with RVR I48.91 Dementia G20; F02.80 Dementia behavioral disturbance: without behavioral disturbance Dementia type: Parkinson's disease History of CVA (cerebrovascular accident) Z86.73 Hyperlipidemia E78.5 BARBARA (obstructive sleep apnea) G47.33 BPH (benign prostatic hyperplasia) N40.0 (1) Dementia Dementia behavioral disturbance: without behavioral disturbance Dementia type: Parkinson's disease Qualified Code(s): G20 - Parkinson's disease; F02.80 - Dementia in other diseases classified elsewhere without behavioral disturbance
[2021-09-27] MEDS: METOPROLOL TARTRATE 50 MG TAB PO SCH ×2 (05:57→17:21)
[2021-09-27] MEDS: dilTIAZem HCL 180 MG CAPCR PO SCH (05:57)
[2021-09-27] MEDS: APIXABAN 5 MG TABLET PO SCH ×3 (08:26→21:10)
[2021-09-27] MEDS: CYANOCOBALAMIN (B-12) 500 MCG TABLET PO SCH (08:26)
[2021-09-27] MEDS: DOCUSATE SODIUM 100 MG CAP PO SCH ×3 (08:26→21:10)
[2021-09-27] MEDS: ASPIRIN 81 MG ECTAB PO SCH (08:26)
[2021-09-27] MEDS: MEMANTINE HCL 10 MG TAB PO SCH ×3 (08:26→21:10)
[2021-09-27] MEDS: RIVASTIGMINE TARTRATE 1.5 MG CAP PO SCH (08:27)
[2021-09-27] MEDS: POLYETHYLENE (MIRALAX) 17 GM PACK PO SCH (08:27)
[2021-09-27] MEDS: NYSTATIN POWDER 15GM BTL EXT SCH ×4 (08:27→21:11)
[2021-09-27] MEDS: levETIRAcetam 500 MG TAB PO SCH ×3 (08:28→21:09)
[2021-09-27] MEDS ORDERED: ACETAMINOPHEN 500 MG TAB PO PRN (08:37)
[2021-09-27] MEDS ORDERED: LACTATED RINGER'S 1,000 ML IV SCH (08:45)
--- NOTE | 2021-09-27 10:06 | Hospitalist Progress Note ---
Date of Service September 27, 2021 Assessment & Plan (1) Seizure-like activity: Plan: Staring spells. Myoclonic type jerking with altered mental status. Recurrent episodes before presentation. Was given Keppra 2000 mg IV in ED. Will continue 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 Very large vents on MRI. No acute CVA. Risk factors for seizure - prior CVA, dementia, etc. EEG without seizure focus but this does not rule out seizures. Thus, [facility] [place] [facility] - Dr Diaz - advises to continue the keppra. Regarding large vents - has had diagnostic/ therapeutic LP in the past without any benefit in his neurological symptoms. No need to pursue anything further re: possible dx of NPH. See Dr Diaz's note. Cont seizure precautions. now with fever this AM--> check COVID/RSV/FLu (2) Atrial fibrillation with RVR: Plan: Per records he has been on stable doses of diltiazem CD and metoprolol BID for quite some time. with LINSEY rates 140s-150s through AM of 09/27, now improved with increased dose of metoprolol and resolution of fever repeat EKG - his ST segment changes anteroseptal are chronic (and, in fact, less prominent than prior EKG). He is on chronic apixaban thus I do not suspect any acute PE. Recent TSH without any hyperthyroidism. Recent K and mag normal. He doesn't seem to be in pain. Increased metoprolol to 50mg BID. Cont cardizem CD 180mg daily. monitor on tele (3) Dementia: Plan: Continue memantine and rivastigmine Advanced See #1 above (4) Fever: Plan: repeat CPVID/Flu/RSV now as with fever, tachycardia on AM of 09/27, had exposure briefly to COVID patient in hospital (5) History of CVA (cerebrovascular accident): Plan: no acute CVA seen on MRI (6) Hyperlipidemia: (7) BARBARA (obstructive sleep apnea): Plan: CPAP at bedtime (8) BPH (benign prostatic hyperplasia): Plan: Continue tamsulosin Plan DVT proph - eliquis speech eval requested re: concern of dysphagia home when a.fib is under control and speech has performed their eval Admission and Anticipated Discharge Date Admission Date: September 24, 2021 Subjective Pt drowsy but answered some questions. Denies headache, pain, CP, SOB. Had a fever and rapid Afib this AM to 140s but rates now improved to 80-90s with resolution of fever and IVFs. Review of Systems Review of Systems: All systems reviewed & are unremarkable except as noted in HPI & below Physical Exam Constitutional: WD/WN, vitals as above Eyes: + anicteric sclerae Neck: trachea midline, no thyromegaly Respiratory: normal respiratory effort, lungs clear to auscultation Cardiovascular: Rate/Rhythm: regular rate and + irregularly irregular Heart Sounds: no murmur Extremities: no edema Gastrointestinal (Abdomen): normal bowel sounds, soft, nontender, no hepatosplenomegaly Musculoskeletal: Extremities: extremities normal to inspection; no cyanosis and no clubbing Skin: no rashes, warm and dry Neurologic: + focal motor deficit (left sided weakness) and + confused Results & Data Results & Data ([facility]) Vital Signs (Past 12 Hours) Vital Signs Temp Pulse Pulse Resp BP BP Pulse Ox 09/27/21 08:40 37.1 C 09/27/21 06:59 38.1 C H 56 L 20 93/54 L 95 09/27/21 06:03 134 H 154/73 H 09/27/21 02:57 36.4 C L 96 H 18 128/70 95 09/26/21 23:34 100 H 09/26/21 23:26 36.5 C 74 18 136/87 96 09/26/21 22:28 101 H 18 127/85 95 O2 Del Method 09/27/21 08:40 09/27/21 06:59 Room Air 09/27/21 06:03 09/27/21 02:57 Room Air 09/26/21 23:34 09/26/21 23:26 Room Air 09/26/21 22:28 Room Air Laboratory Results labs pending PG Care Time/CCT Total # of Minutes Spent Total Time Spent with Patient: Total time spent is greater than 50% in coordination of care (as documented) at patient's floor/unit and/or counseling patient: Coding Level of Care Code 80522 Subseq Hosp Care Lvl 2 Diagnoses Seizure-like activity R56.9 Atrial fibrillation with RVR I48.91 Dementia G20; F02.80 Dementia behavioral disturbance: without behavioral disturbance Dementia type: Parkinson's disease Fever R50.9 History of CVA (cerebrovascular accident) Z86.73 Hyperlipidemia E78.5 BARBARA (obstructive sleep apnea) G47.33 BPH (benign prostatic hyperplasia) N40.0 (1) Dementia Dementia behavioral disturbance: without behavioral disturbance Dementia type: Parkinson's disease Qualified Code(s): G20 - Parkinson's disease; F02.80 - Dementia in other diseases classified elsewhere without behavioral disturbance
[2021-09-27 10:19] LABS: Influenza A virus by PCR Negative (Neg); Influenza B virus by PCR Negative (Neg); RSV by PCR Negative (Neg); SARS CoV2 RNA(COVID-19) InHosp NEGATIVE (Negative)
[2021-09-27 10:38] LABS: Basophils # (auto) 0.05 K/uL (0-0.2); Basophils % (auto) 0.6 %; Eosinophils # (auto) 0.14 K/uL (0-0.50); Eosinophils % (auto) 1.6 %; Hemoglobin 13.8 g/dl (14.0-18.0); Immature Granulocytes # (auto) 0.02 K/uL (0.00-0.02); Immature Granulocytes % (auto) 0.2 %; Lymphocytes # (auto) 1.59 K/uL (1.2-3.4); Lymphocytes % (auto) 18.4 %; Mean Corpuscular Hemoglobin 29.9 pg (25.0-34.0); Mean Corpuscular Hgb Conc 32.1 g/dL (32.0-36.0); Mean Corpuscular Volume 93.3 fL (80.0-100.0); Mean Platelet Volume 10.2 fL (9.4-12.4); Monocytes # (auto) 0.69 K/uL (0.24-0.82); Neutrophils # (auto) 6.14 K/uL (1.4-6.5); Neutrophils % (auto) 71.2 %; Platelet Count 183 K/uL (130-400); RDW Coefficient of Variation 14.5 % (11.5-14.5); RDW Standard Deviation 49.5 fL (36.4-46.3); Red Blood Count 4.61 M/uL (4.63-6.08); White Blood Count 8.63 K/ul (4.8-10.8)
[2021-09-27 11:06] LABS: Albumin Globulin Ratio 1.1 (0.9-2); Albumin Level 3.6 gm/dl (3.4-5.0); BUN Creatinine Ratio 15.2 (10-20); Bilirubin,Total 0.8 mg/dl (0.2-1.0); Calcium 9.1 mg/dl (8.5-10.1); Creatinine Clr Calc Pharmacy 74.6 ml/min; Est GFR (African American) 86.6 ml/min; Est GFR (Non-African American) 74.7 ml/min; Globulin 3.3 gm/dl (2.5-4.0); Magnesium 1.9 mg/dl (1.7-2.4); Total Protein 6.9 gm/dl (6.0-8.3)
[2021-09-27] MEDS ORDERED: METOPROLOL TARTRATE 1 MG/ML VIAL IV STA (17:50)
[2021-09-27] MEDS: CHOLECALCIFEROL 1,000 UNITS 25 MCG TAB PO SCH ×2 (20:02→21:10)
[2021-09-27] MEDS: TAMSULOSIN HCL 0.4 MG CAP PO SCH ×2 (20:02→21:11)
--- NOTE | 2021-09-28 05:50 | Electrocardiogram Report ---
Test Reason : Blood Pressure : / mmHG Vent. Rate : 142 BPM Atrial Rate : 340 BPM P-R Int : 000 ms QRS Dur : 082 ms QT Int : 300 ms P-R-T Axes : 000 -17 133 degrees QTc Int : 461 ms Atrial fibrillation with rapid ventricular response Moderate voltage criteria for LVH, may be normal variant Posterior infarct , age undetermined Abnormal ECG When compared with ECG of 24-SEP-2021 18:09, Vent. rate has increased BY 59 BPM T wave inversion no longer evident in Anterior leads Confirmed by Nate Tesfaye ([id number]) on 09/28/2021 5:50:34 AM Referred By: REFERRED SELF Confirmed By:Nate Tesfaye
[2021-09-28 08:37] LABS: Basophils # (auto) 0.07 K/uL (0-0.2); Basophils % (auto) 0.8 %; Eosinophils % (auto) 2.3 %; Hematocrit (blood only) 42.4 % (40.1-51.0); Hemoglobin 13.9 g/dl (14.0-18.0); Immature Granulocytes # (auto) 0.03 K/uL (0.00-0.02); Immature Granulocytes % (auto) 0.3 %; Lymphocytes # (auto) 1.54 K/uL (1.2-3.4); Lymphocytes % (auto) 17.5 %; Mean Corpuscular Hemoglobin 30.4 pg (25.0-34.0); Mean Corpuscular Hgb Conc 32.8 g/dL (32.0-36.0); Mean Corpuscular Volume 92.8 fL (80.0-100.0); Mean Platelet Volume 10.4 fL (9.4-12.4); Monocytes # (auto) 0.58 K/uL (0.24-0.82); Monocytes % (auto) 6.6 %; Neutrophils # (auto) 6.39 K/uL (1.4-6.5); Neutrophils % (auto) 72.5 %; Platelet Count 180 K/uL (130-400); RDW Coefficient of Variation 14.3 % (11.5-14.5); RDW Standard Deviation 48.1 fL (36.4-46.3); Red Blood Count 4.57 M/uL (4.63-6.08); White Blood Count 8.81 K/ul (4.8-10.8)
[2021-09-28 09:08] LABS: BUN Creatinine Ratio 13.8 (10-20); Calcium 9.2 mg/dl (8.5-10.1); Creatinine Clr Calc Pharmacy 90.4 ml/min; Magnesium 1.9 mg/dl (1.7-2.4); Potassium 3.9 mmol/L (3.5-5.1)
[2021-09-28] MEDS: levETIRAcetam 500 MG TAB PO SCH (09:24)
[2021-09-28] MEDS: CYANOCOBALAMIN (B-12) 500 MCG TABLET PO SCH (09:24)
[2021-09-28] MEDS: RIVASTIGMINE TARTRATE 1.5 MG CAP PO SCH (09:24)
[2021-09-28] MEDS: MEMANTINE HCL 10 MG TAB PO SCH (09:24)
[2021-09-28] MEDS: DOCUSATE SODIUM 100 MG CAP PO SCH (09:24)
[2021-09-28] MEDS: APIXABAN 5 MG TABLET PO SCH (09:24)
[2021-09-28] MEDS: dilTIAZem HCL 180 MG CAPCR PO SCH (09:25)
[2021-09-28] MEDS: POLYETHYLENE (MIRALAX) 17 GM PACK PO SCH (09:25)
[2021-09-28] MEDS: ASPIRIN 81 MG ECTAB PO SCH (09:25)
[2021-09-28] MEDS: NYSTATIN POWDER 15GM BTL EXT SCH ×2 (09:25→14:50)
[2021-09-28] MEDS: METOPROLOL TARTRATE 50 MG TAB PO SCH (09:25)
--- NOTE | 2021-09-28 12:06 | Discharge Summary ---
Date of Service September 28, 2021 Admission HPI Per Admitting Provider The patient is a 75-year-old male with a past medical history including CVA with residual right-sided weakness, DJD of knee, hyperlipidemia, pulmonary nodule, CHF, BARBARA, atrial fibrillation with RVR, dementia, syncope, BPH, B12 deficiency and jerking movements of extremities. The patient was recently seen in emergency department on 09/18/2021 for weakness and were acute worsening of mental state, with negative work-up at that time. His reports that she had noticed some staring spells today, and prior to arrival to emergency department he had a sudden quick jerking movement of his head to the left, seemed paralyzed and stiff, and then had some shaking of his extremities of duration about 30 seconds to 1 minute. EMS was called, blood sugar was 116, there was no seizure- like activity noted at that time by EMS, and the patient was brought to the emergency department for assessment. Principal Diagnosis Seizure-like activity Discharge Exam Constitutional WD/WN, vitals as above Eyes + anicteric sclerae Neck trachea midline, no thyromegaly Respiratory normal respiratory effort, lungs clear to auscultation Cardiovascular Rate/Rhythm: regular rate and + irregularly irregular Heart Sounds: no murmur Extremities: no edema Gastrointestinal (Abdomen) normal bowel sounds, soft, nontender, no hepatosplenomegaly Musculoskeletal Extremities: extremities normal to inspection; no cyanosis and no clubbing Skin no rashes, warm and dry Neurologic + focal motor deficit (left sided weakness) and + confused Discharge Data Allergies Allergy/AdvReac Type Severity Reaction Status Date / Time isopropyl alcohol Allergy Severe RUBBING Verified 09/24/21 19:52 ALCOHOL - SHORTNESS OF BREATH adhesive Allergy Intermediate BLISTERS Verified 09/24/21 19:52 escitalopram Allergy Unknown UNSURE-DOES Verified 09/24/21 19:52 NOT KNOW oxycodone AdvReac Mild CONFUSION Verified 09/24/21 19:52 lisinopril AdvReac Unknown elevated Verified 09/24/21 19:52 creatinine Consultations 09/24/21 21:17 ED Decision to Admit Stat 09/25/21 20:42 Consult Neurology Routine Ordered Studies 09/24/21 18:49 CT head/brain wo con Stat 09/25/21 21:59 MR brain seizure wo con Stat Hospital Course (1) Seizure-like activity: Staring spells. Myoclonic type jerking with altered mental status. Recurrent episodes before presentation. Was given Keppra 2000 mg IV in ED. Will continue 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 Very large vents on MRI. No acute CVA. Risk factors for seizure - prior CVA, dementia, etc. EEG without seizure focus but this does not rule out seizures. Thus, [facility] [place] [facility] [place] Diaz - advises to continue the keppra. Regarding large vents - has had diagnostic/ therapeutic LP in the past without any benefit in his neurological symptoms. No need to pursue anything further re: possible dx of NPH. See Dr Diaz's note. Cont seizure precautions. f/u with Neuro in 3-4 weeks as outpt (2) Atrial fibrillation with RVR: Per records he has been on stable doses of diltiazem CD and metoprolol BID for quite some time. with LINSEY rates 140s-150s through AM of 09/27, now improved with increased dose of metoprolol and resolution of fever repeat EKG - his ST segment changes anteroseptal are chronic (and, in fact, less prominent than prior EKG). He is on chronic apixaban thus I do not suspect any acute PE. Recent TSH without any hyperthyroidism. Recent K and mag normal. He doesn't seem to be in pain. Increased metoprolol to 50mg BID and had improved control of rates Cont cardizem CD 180mg daily. (3) Dementia: Continue memantine and rivastigmine Advanced See #1 above (4) Fever: repeat CPVID/Flu/RSV now as with fever, tachycardia on AM of 09/27, had exposure briefly to COVID patient in hospital resolved spontaneously and no other signs of infection advised to watch for worsening symptoms at home and retest for COVID prn (5) History of CVA (cerebrovascular accident): no acute CVA seen on MRI (6) Hyperlipidemia: (7) BARBARA (obstructive sleep apnea): CPAP at bedtime (8) BPH (benign prostatic hyperplasia): Continue tamsulosin Plan DVT proph - eliquis speech eval requested re: concern of dysphagia -seen, appreciate recommendations Dispo-dc to home Total Time Total Time Spent Total Time Spent (In Minutes): 35 min Discharge Plan Discharge Items Patient Disposition: Home - Home Health Services Reason For Visit: SEIZURE-LIKE ACTIVITY Discharge Diagnosis: Seizure-like activity Condition on Discharge: Fair Activity: Resume your previous activity Non-emergency contact: Primary Care Provider and Neurologist Call non-emergency contact if: you have any medication questions, your symptoms worsen and you have a fever Follow-up/Referrals: Fritz Diaz MD [Physician] - (Follow up within 3-[address] Diaz or his PA, Gladis Hyman) Fritz Campos DO [Primary Care Provider] - (Follow up in 1-2 weeks) Diet: Regular Diet Texture: Pureed (blended smooth) Addtl Attending Provider Instructions: You were admitted with possible seizures and started on a new medication called Keppra to be taken twice a day for this. Please follow up with the neurologist within 3-4 weeks. You had some rapid atrial fibrillation and your metoprolol dose was increased to help better control this. You unfortunately had a very brief exposure to another patient with COVID-19 while in the hospital. If you develop fevers or any other concerning symptoms, please call your doctor right away. Pending Studies at Discharge: No Stand-Alone Forms: My [facility] Medications and DC Order Prescriptions: New levetiracetam [Keppra] 500 mg Tablet 500 mg PO BID Qty: 60 0RF metoprolol tartrate 50 mg Tablet 50 mg PO BID Qty: 60 0RF Continued (DME) disposable gloves [Disposable Latex-Free Gloves] Misc See Rx Instructions .ROUTE .MEDSUPPLY Qty: 1000 3RF Rx Instructions: As directed aspirin [Pieter Low Dose Aspirin] 81 mg tablet,delayed release (DR/EC) 81 mg PO QAM Qty: 90 3RF tamsulosin [Flomax] 0.4 mg capsule 0.4 mg PO HS Qty: 90 3RF nitroglycerin 0.4 mg tablet, sublingual 0.4 mg SL Q5M PRN (Reason: chest pain) Qty: 25 0RF Rx Instructions: For chest pain place one tablet under tongue every 5 mins. diltiazem HCl 180 mg capsule,extended release 24hr 180 mg PO QAM Qty: 90 3RF (DME) finger splint Misc See Rx Instructions .Route Qty: 2 0RF Rx Instructions: RESTING HAND SPLINT WITH FINGER ABDUCTORS DX: M24.549 cyanocobalamin (vitamin B-12) 1,000 mcg capsule 1,000 mcg PO DAILY Qty: 30 5RF Eliquis 5 mg tablet 5 mg PO BID Qty: 180 3RF rivastigmine tartrate 3 mg capsule 3 mg PO QAM clotrimazole 1 % cream 1 applic topical BID PRN (Reason: Skin Irritation) d-mannose 500 mg capsule 1,000 mg PO QAM nystatin 100,000 unit/gram powder 1 applic topical QID Qty: 60 5RF acetaminophen [Tylenol Extra Strength] 500 mg tablet 1,000 mg PO BID Qty: 120 5RF memantine [Namenda] 10 mg tablet 10 mg PO BID Qty: 180 4RF polyethylene glycol 3350 [Miralax] 17 gram/dose powder 17 g PO QAM cholecalciferol (vitamin D3) [Vitamin D3] 1,000 unit Capsule 1,000 unit PO HS coenzyme Q10 [CoQ-10] 100 mg Capsule 100 mg PO BID bisacodyl [Dulcolax (bisacodyl)] 10 mg Suppository 10 mg VA DAILY PRN (Reason: Constipation) docusate sodium [Colace] 100 mg Capsule 100 mg PO BID diclofenac sodium [Voltaren Arthritis Pain] 1 % Gel 4 g EXT QID PRN (Reason: pain) Qty: 100 0RF Discontinued metoprolol tartrate 25 mg tablet 25 mg PO BID Qty: 180 3RF Discharge Orders: Discharge Order (Routine); Ordered 09/28/21 Ordered By: Millicent Lopez Admission Data Admit Date/Time: 09/24/21 22:14 Attending Provider: Millicent Lopez Admit Provider: Buster Montez Primary Care Provider: Fritz Campos Other Providers: Buster Montez ; Fritz Diaz Coding Level of Care Code D/C DAY MANAGEMENT >30 MINS Diagnoses Seizure-like activity R56.9 Atrial fibrillation with RVR I48.91 Dementia G20; F02.80 Dementia behavioral disturbance: without behavioral disturbance Dementia type: Parkinson's disease Fever R50.9 History of CVA (cerebrovascular accident) Z86.73 Hyperlipidemia E78.5 BARBARA (obstructive sleep apnea) G47.33 BPH (benign prostatic hyperplasia) N40.0
== END 2021-09-28 15:18 | disposition home health service (06) | DRG 101 ==
LOC: ED 18:01 → 2S 22:14 → SUATTDRO 22:14 → 2S 22:54 → 1E 09-27 09:47

== ENCOUNTER 2021-09-30 19:16 | Inpatient (IN) ==
[2021-09-30] MEDS ORDERED: SODIUM CHLORIDE 0.9% 500 ML IV SCH (19:30)
--- NOTE | 2021-09-30 19:44 | Emergency Department Note ---
Impression & Plan Weakness, History of CVA (cerebrovascular accident), Acute UTI ED Provider Note NAME: SAMANTHA LENTZ AGE: 75 SEX: M : 1945 ARRIVES VIA: Ambulance INFORMANT: [nursing, ems] ED PROVIDER(S): [Emile Richards MD] CHIEF COMPLAINT: Weakness HISTORY OF PRESENT ILLNESS: The patient is a 75-year-old male who presents to the ER with a declining mental state. He was discharged from our hospital about 2 days ago. He was admitted for potential seizure activity. The EEG was negative however, he was placed on Keppra at discharge. As per EMS and nursing staff, the patient has had a decline in his mental state since being home. He is having a hard time eating and taking pills and there is concern for aspiration. Today, there was some blood on the depends and there was concerns for a UTI. No fever reported. No cough or congestion or shortness of breath. The patient does have a history of CVA. He is unable to care for himself because of the stroke. His did mention hospice to the family doctor's office as he is becoming very difficult to care for and lately, has been in a pretty steep decline REVIEW OF SYSTEMS: Unobtainable given his mental state. PMHx/PSHx: See Below SOCIAL HISTORY: See Below. PHYSICAL EXAM: GENERAL: Patient is in no acute distress. Preferentially looks right HEENT: No acute trauma, normocephalic atraumatic, mucous membranes moist, no nasal congestion, no scleral icterus. NECK: No stridor, no adenopathy, no meningismus, trachea is midline. LUNGS: Clear to auscultation bilaterally, no wheeze, no rhonchi, breath sounds equal. HEART: No obvious murmur, mildly tachycardic, irregular rhythm. ABDOMEN: Firm, nontender, bowel sounds positive, no peritonitis. EXTREMITIES: No cyanosis or edema. No obvious extremity deformity. NEUROLOGIC: Awake. Preferentially looks to the right. Minimal movement of the left upper extremity. No movement noted of the lower extremities. He does move the right upper extremity but there is some contracture noted. SKIN: No rash, no jaundice, no diaphoresis. Groin: No erythema, no cellulitis. DIFFERENTIAL DIAGNOSIS: Dehydration, anemia, electrolyte imbalance, renal or liver failure, new stroke, dehydration, aspiration, UTI, infection, medication reaction, among others EMERGENCY DEPARTMENT COURSE/PROCEDURES: ECG: Indication was weakness. The ECG shows atrial fibrillation with a rate of 103. LVH is present. There are inverted T waves in the anterior and lateral leads. There is no ST elevation. The QTC is 548. Compared to a recent old ECG, I see no significant change. Continuous Cardiac Monitoring: An order was placed for continuous cardiac monitoring. The monitor shows a rate of 102 with atrial fibrillation. MEDICAL DECISION MAKING: There is no leukocytosis or concerning anemia. There is a normal platelet count. No renal failure or significant electrolyte abnormality. Lactic acid level is not elevated making sepsis less likely. No concerning liver enzyme elevation. The patient appears to be in a euthyroid state. Urinalysis is co nsistent with infection. COVID test is negative. Chest x-ray does not show pneumonia or CHF. On exam, the patient was not toxic, he was not febrile. The patient received IV cefepime as antibiotic coverage he was given IV saline, 500 cc. Patient has only been discharged from his hospital for 2 days. He is not himself mentally and is weak. He now appears have a UTI. His cannot care for him in this situation. There is concern that he may be aspirating as he is having a hard time swallowing his meds and even applesauce. I did contact case management. I suspect the patient is going to require a different home situation or more help at home. He has become too much work for his to be his sole caregiver. The patient's weakness and mental decline certainly may be from his UTI. Given the circumstances, hospitalization is indicated. I spoke with the patient and his , I did speak with case management. The on-call hospitalist was consulted. Past Med/Surg History Medical History Acute hypotension Acute kidney injury Acute urinary retention Atrial fibrillation with RVR CAD (coronary artery disease) CAD (coronary artery disease) CHF (congestive heart failure) Closed fracture of radial head Constipation CVA (cerebral vascular accident) Gastroesophageal reflux disease Hyperlipidemia Hypertension Ileus Nephrolithiasis BARBARA (obstructive sleep apnea) Small bowel obstruction Symptomatic bradycardia Urinary retention Surgical History History of knee replacement History of PTCA Family History Father Stroke Mother Myocardial infarction Aunt Diabetes Family/Other Heart disease Hypertension Nephrolithiasis Other Dementia Denies family history of Prostate cancer Social History Smoking Status: Unknown if ever smoked Second Hand Exposure: No; Hx Alcohol Use: No Hx Substance Use: No Preferred Language: Bengali Communication Ability: Unable Visual Impairment: Limited Hearing Ability: Normal 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 Beliefs That Will Affect Care: None marital status: Current Living Situation: Spouse current occupational status: retired How many Children do You have: 1 Feels Safe at Home: Yes Childhood Exposure to Second-Hand Smoke: Yes caffeine: No Physical Activity Frequency: Does not Exercise Seatbelt Use: always Sunscreen Use: No (not in the sun) Assistive Devices: CPAP, Hospital Bed, Lift Chair and Mechanical Lift Allergies Allergies Allergy/AdvReac Type Severity Reaction Status Date / Time isopropyl alcohol Allergy Severe RUBBING Verified 09/30/21 22:03 ALCOHOL - SHORTNESS OF BREATH adhesive Allergy Intermediate BLISTERS Verified 09/30/21 22:03 escitalopram Allergy Unknown UNSURE-DOES Verified 09/30/21 22:03 NOT KNOW oxycodone AdvReac Mild CONFUSION Verified 09/30/21 22:03 lisinopril AdvReac Unknown elevated Verified 09/30/21 22:03 creatinine Home Meds Home Medications Medication Instructions Recorded Confirmed cholecalciferol (vitamin D3) 25 1,000 unit PO HS 02/13/18 09/30/21 mcg (1,000 unit) capsule (Vitamin D3) coenzyme Q10 100 mg capsule 100 mg PO BID 02/13/18 09/30/21 (CoQ-10) polyethylene glycol 3350 17 17 g PO QAM 06/04/20 09/30/21 gram/dose oral powder (Miralax) bisacodyl 10 mg rectal suppository 10 mg MS DAILY PRN Constipation 12/28/20 09/30/21 (Dulcolax (bisacodyl)) docusate sodium 100 mg capsule 100 mg PO BID 12/28/20 09/30/21 (Colace) rivastigmine tartrate 3 mg capsule 3 mg PO QAM 12/31/20 09/30/21 clotrimazole 1 % topical cream 1 applic topical BID PRN Skin 07/28/21 09/30/21 Irritation d-mannose 500 mg capsule 1,000 mg PO QAM 07/28/21 09/30/21 Previous Rx's Medication Instructions Recorded acetaminophen 500 mg tablet 1,000 mg PO BID Pain #120 tabs 06/14/20 (Tylenol Extra Strength) memantine 10 mg tablet (Namenda) 10 mg PO BID #180 tabs 06/14/20 aspirin 81 mg tablet,delayed 81 mg PO QAM #90 tabs 09/08/20 release (Pieter Low Dose Aspirin) tamsulosin 0.4 mg capsule (Flomax) 0.4 mg PO HS #90 caps 11/22/20 diclofenac sodium 1 % topical gel 4 g EXT QID PRN pain #100 grams 04/15/21 (Voltaren Arthritis Pain) nitroglycerin 0.4 mg sublingual 0.4 mg sublingual Q5M PRN chest 04/19/21 tablet pain #25 tabs diltiazem HCl 180 mg 180 mg PO QAM #90 caps 05/04/21 capsule,extended release 24 hr cyanocobalamin (vitamin B-12) 1,000 mcg PO DAILY #30 caps 06/30/21 1,000 mcg capsule nystatin 100,000 unit/gram topical 1 applic topical QID #60 grams 07/28/21 powder apixaban 5 mg tablet (Eliquis) 5 mg PO BID #180 tabs 09/13/21 levetiracetam 500 mg tablet 500 mg PO BID #60 tabs 09/28/21 (Keppra) metoprolol tartrate 50 mg tablet 50 mg PO BID #60 tabs 09/28/21 Mattress (Air or other) #1 ea 09/29/21 Results & Data (ED) Vital Signs Vital Signs - 24 hr 09/30/21 19:20 09/30/21 20:49 09/30/21 20:50 Temperature 37.2 C Temperature Source Oral Pulse Rate 111 H Pulse Rate [Left Apical] 80 Pulse Rhythm Irregular Pulse Rhythm [Left Apical] Regular Pulse Strength Normal Pulse Strength [Left Apical] Respiratory Rate 16 20 Respiratory Effort / Characteristics Non-Labored Spontaneous Non-Labored Respiratory Depth Normal Normal Respiratory Pattern Regular Blood Pressure 134/96 Blood Pressure [Right Arm] 134/96 Blood Pressure Mean 108 Blood Pressure Mean [Right Arm] 108 Blood Pressure Position Sitting Blood Pressure Position [Right Arm] Pulse Oximetry 96 97 97 Oxygen Delivery Method Room Air Room Air Room Air Sepsis Recent Fever Within 48 Hours No Sepsis New/Unexplained Change in Mental Status No Sepsis Action Taken by Nursing No Action Required 09/30/21 21:02 09/30/21 22:36 Temperature Temperature Source Pulse Rate Pulse Rate [Left Apical] 98 H Pulse Rhythm Pulse Rhythm [Left Apical] Irregular Pulse Strength Pulse Strength [Left Apical] Normal Respiratory Rate 22 Respiratory Effort / Characteristics Non-Labored Spontaneous Respiratory Depth Normal Respiratory Pattern Regular Blood Pressure Blood Pressure [Right Arm] 142/89 H Blood Pressure Mean Blood Pressure Mean [Right Arm] 106 Blood Pressure Position Blood Pressure Position [Right Arm] Lying Pulse Oximetry 97 97 Oxygen Delivery Method Room Air Room Air Sepsis Recent Fever Within 48 Hours Sepsis New/Unexplained Change in Mental Status Sepsis Action Taken by [facility] Medications Current Medication List: was personally reviewed by me Laboratory Data Attestation: I reviewed the patient's lab results. Result diagrams: 09/30/21 19:36 09/30/21 22:48 Lab Results 09/30/21 09/30/21 09/30/21 Range/Units 19:36 19:36 19:36 WBC 6.91 (4.8-10.8) K/ul RBC 4.93 (4.63-6.08) M/uL Hgb 14.8 (14.0-18.0) g/dl Hct 45.6 (40.1-51.0) % MCV 92.5 (80.0-100.0) fL MCH 30.0 (25.0-34.0) pg MCHC 32.5 (32.0-36.0) g/dL RDW Std Deviation 48.8 H (36.4-46.3) fL RDW Coeff of Alex 14.3 (11.5-14.5) % Plt Count 213 (130-400) K/uL MPV 10.7 (9.4-12.4) fL Immature Gran % (Auto) 0.3 % Neut % (Auto) 67.2 % Lymph % (Auto) 20.3 % Teller % (Auto) 8.8 % Eos % (Auto) 2.5 % Baso % (Auto) 0.9 % Neut # (Auto) 4.65 (1.4-6.5) K/uL Lymph # (Auto) 1.40 (1.2-3.4) K/uL Teller # (Auto) 0.61 (0.24-0.82) K/uL Eos # (Auto) 0.17 (0-0.50) K/uL Baso # (Auto) 0.06 (0-0.2) K/uL Immature Gran # (Auto) 0.02 (0.00-0.02) K/uL Sodium 133 L (136-145) mmol/L Potassium TNP Chloride 101 (98-107) mmol/L Carbon Dioxide 24 (21-32) mmol/L Anion Gap 8 (3-11) BUN 11 (6-23) mg/dl Creatinine 0.87 (0.6-1.4) mg/dl Est Cr Clr Drug Dosing Not Reportable Est GFR ( Amer) 98.5 ml/min Est GFR (Non-Af Amer) 85.0 ml/min BUN/Creatinine Ratio 12.6 (10-20) Glucose 104 H (70-99(Fasting)) mg/dl Lactate 1.2 (0.4-2.0) mmol/L Calcium 9.5 (8.5-10.1) mg/dl Magnesium 2.1 (1.7-2.4) mg/dl Total Bilirubin 1.0 (0.2-1.0) mg/dl AST TNP ALT 23 (7-52) U/L Alkaline Phosphatase 148 H (34-104) U/L Troponin I High Sens 6.6 (0-20) pg/ml Total Protein 7.9 (6.0-8.3) gm/dl Albumin 3.9 (3.4-5.0) gm/dl Globulin 4.0 (2.5-4.0) gm/dl Albumin/Globulin Ratio 1.0 (0.9-2) TSH (0.300-4.500) uIu/ml Urine Color Urine Appearance (Clear) Urine pH (4.5-7.5) Ur Specific [place] (1.000-1.030) Urine Protein (Negative) Urine Glucose (UA) (Negative) Urine Ketones (Negative) Urine Blood (Negative) Urine Nitrite (Negative) Urine Bilirubin (Negative) Urine Urobilinogen (Negative) Ur Leukocyte Esterase (Negative) Urine WBC (Auto) (0-5) /hpf Urine RBC (Auto) (0-4) /hpf U Hyaline Cast (Auto) (0-5) /lpf U Epithel Cells (Auto) (0-5) /lpf Urine Bacteria (Auto) (Negative) SARS-CoV-2, RNA, NAAT (NEGATIVE) 09/30/21 09/30/21 09/30/21 Range/Units 19:36 20:25 20:53 WBC (4.8-10.8) K/ul RBC (4.63-6.08) M/uL Hgb (14.0-18.0) g/dl Hct (40.1-51.0) % MCV (80.0-100.0) fL MCH (25.0-34.0) pg MCHC (32.0-36.0) g/dL RDW Std Deviation (36.4-46.3) fL RDW Coeff of Alex (11.5-14.5) % Plt Count (130-400) K/uL MPV (9.4-12.4) fL Immature Gran % (Auto) % Neut % (Auto) % Lymph % (Auto) % Teller % (Auto) % Eos % (Auto) % Baso % (Auto) % Neut # (Auto) (1.4-6.5) K/uL Lymph # (Auto) (1.2-3.4) K/uL Teller # (Auto) (0.24-0.82) K/uL Eos # (Auto) (0-0.50) K/uL Baso # (Auto) (0-0.2) K/uL Immature Gran # (Auto) (0.00-0.02) K/uL Sodium (136-145) mmol/L Potassium Chloride (98-107) mmol/L Carbon Dioxide (21-32) mmol/L Anion Gap (3-11) BUN (6-23) mg/dl Creatinine (0.6-1.4) mg/dl Est Cr Clr Drug Dosing Est GFR ( Amer) ml/min Est GFR (Non-Af Amer) ml/min BUN/Creatinine Ratio (10-20) Glucose (70-99(Fasting)) mg/dl Lactate (0.4-2.0) mmol/L Calcium (8.5-10.1) mg/dl Magnesium (1.7-2.4) mg/dl Total Bilirubin (0.2-1.0) mg/dl AST ALT (7-52) U/L Alkaline Phosphatase (34-104) U/L Troponin I High Sens (0-20) pg/ml Total Protein (6.0-8.3) gm/dl Albumin (3.4-5.0) gm/dl Globulin (2.5-4.0) gm/dl Albumin/Globulin Ratio (0.9-2) TSH 2.841 (0.300-4.500) uIu/ml Urine Color Yellow Urine Appearance Cloudy A (Clear) Urine pH 5.5 (4.5-7.5) Ur Specific [place] 1.010 (1.000-1.030) Urine Protein 1+ H (Negative) Urine Glucose (UA) Negative (Negative) Urine Ketones Negative (Negative) Urine Blood 3+ H (Negative) Urine Nitrite Positive A (Negative) Urine Bilirubin Negative (Negative) Urine Urobilinogen Negative (Negative) Ur Leukocyte Esterase 3+ H (Negative) Urine WBC (Auto) >30 H (0-5) /hpf Urine RBC (Auto) 5-10 H (0-4) /hpf U Hyaline Cast (Auto) 1-5 (0-5) /lpf U Epithel Cells (Auto) >30 H (0-5) /lpf Urine Bacteria (Auto) Negative (Negative) SARS-CoV-2, RNA, NAAT NEGATIVE (NEGATIVE) 09/30/21 Range/Units 22:48 WBC (4.8-10.8) K/ul RBC (4.63-6.08) M/uL Hgb (14.0-18.0) g/dl Hct (40.1-51.0) % MCV (80.0-100.0) fL MCH (25.0-34.0) pg MCHC (32.0-36.0) g/dL RDW Std Deviation (36.4-46.3) fL RDW Coeff of Alex (11.5-14.5) % Plt Count (130-400) K/uL MPV (9.4-12.4) fL Immature Gran % (Auto) % Neut % (Auto) % Lymph % (Auto) % Teller % (Auto) % Eos % (Auto) % Baso % (Auto) % Neut # (Auto) (1.4-6.5) K/uL Lymph # (Auto) (1.2-3.4) K/uL Teller # (Auto) (0.24-0.82) K/uL Eos # (Auto) (0-0.50) K/uL Baso # (Auto) (0-0.2) K/uL Immature Gran # (Auto) (0.00-0.02) K/uL Sodium (136-145) mmol/L Potassium 4.0 Chloride (98-107) mmol/L Carbon Dioxide (21-32) mmol/L Anion Gap (3-11) BUN (6-23) mg/dl Creatinine (0.6-1.4) mg/dl Est Cr Clr Drug Dosing Est GFR ( Amer) ml/min Est GFR (Non-Af Amer) ml/min BUN/Creatinine Ratio (10-20) Glucose (70-99(Fasting)) mg/dl Lactate (0.4-2.0) mmol/L Calcium (8.5-10.1) mg/dl Magnesium (1.7-2.4) mg/dl Total Bilirubin (0.2-1.0) mg/dl AST 23 ALT (7-52) U/L Alkaline Phosphatase (34-104) U/L Troponin I High Sens (0-20) pg/ml Total Protein (6.0-8.3) gm/dl Albumin (3.4-5.0) gm/dl Globulin (2.5-4.0) gm/dl Albumin/Globulin Ratio (0.9-2) TSH (0.300-4.500) uIu/ml Urine Color Urine Appearance (Clear) Urine pH (4.5-7.5) Ur Specific [place] (1.000-1.030) Urine Protein (Negative) Urine Glucose (UA) (Negative) Urine Ketones (Negative) Urine Blood (Negative) Urine Nitrite (Negative) Urine Bilirubin (Negative) Urine Urobilinogen (Negative) Ur Leukocyte Esterase (Negative) Urine WBC (Auto) (0-5) /hpf Urine RBC (Auto) (0-4) /hpf U Hyaline Cast (Auto) (0-5) /lpf U Epithel Cells (Auto) (0-5) /lpf Urine Bacteria (Auto) (Negative) SARS-CoV-2, RNA, NAAT (NEGATIVE) Administered Medications Discontinued Medications Sodium Chloride (Nss) 500 mls @ 999 mls/hr IV .Q31M ANTONIO Stop: 09/30/21 20:00 Last Infusion: 09/30/21 21:02 Dose: 0 mls/hr Documented By: Admin: 09/30/21 20:30 Dose: 999 mls/hr Documented By: JAVIER Cefepime HCl (Maxipime) 2,000 mg in 20 mls @ 5 mls/min IV NOW STA; Protocol Stop: 09/30/21 21:57 Last Admin: 09/30/21 22:35 Dose: 5 mls/min Documented By: JAVIER Imaging Data Radiologist's Impression: Chest X-Ray 09/30/21 19:26 XR chest 1V portable CLINICAL HISTORY: weakness. Evaluate cardiopulmonary status COMPARISON STUDY: 09/18/2021 TECHNIQUE: 1 view of the chest FINDINGS: Single frontal view of the chest demonstrates the heart to again be enlarged. There is a decreased inspiratory effort with elevation of the hemidiaphragms and crowding of the bronchovascular markings at the lung bases and centrally. The l ungs are clear of alveolar opacities. There is no evidence for pleural effusion. There is no evidence for vascular congestion. There is no acute osseous pathology. IMPRESSION: 1. There is a decreased inspiratory effort with otherwise no acute chest disease. ACT 112: Negative or not required by law. Electronically signed by: Benoit López M.D. 09/30/2021 8:11 PM Discharge Plan Visit Data Chief Complaint: Weakness ED Provider: Emile Richards Discharge Problem: Weakness, History of CVA (cerebrovascular accident), Acute UTI Patient Disposition: Admitted As Inpatient Condition: Good Forms Stand Alone Forms: My [facility] [employer] Prescriptions Prescriptions: No Action aspirin [Pieter Low Dose Aspirin] 81 mg tablet,delayed release (DR/EC) 81 mg PO QAM Qty: 90 3RF tamsulosin [Flomax] 0.4 mg capsule 0.4 mg PO HS Qty: 90 3RF nitroglycerin 0.4 mg tablet, sublingual 0.4 mg SL Q5M PRN (Reason: chest pain) Qty: 25 0RF Rx Instructions: For chest pain place one tablet under tongue every 5 mins. diltiazem HCl 180 mg capsule,extended release 24hr 180 mg PO QAM Qty: 90 3RF cyanocobalamin (vitamin B-12) 1,000 mcg capsule 1,000 mcg PO DAILY Qty: 30 5RF Eliquis 5 mg tablet 5 mg PO BID Qty: 180 3RF (DME) Mattress (Air or other) Misc See Rx Instructions .Route Qty: 1 0RF Rx Instructions: As directed-length of need-99 months, DX: I63.9 rivastigmine tartrate 3 mg capsule 3 mg PO QAM clotrimazole 1 % cream 1 applic topical BID PRN (Reason: Skin Irritation) d-mannose 500 mg capsule 1,000 mg PO QAM nystatin 100,000 unit/gram powder 1 applic topical QID Qty: 60 5RF acetaminophen [Tylenol Extra Strength] 500 mg tablet 1,000 mg PO BID Qty: 120 5RF memantine [Namenda] 10 mg tablet 10 mg PO BID Qty: 180 4RF polyethylene glycol 3350 [Miralax] 17 gram/dose powder 17 g PO QAM cholecalciferol (vitamin D3) [Vitamin D3] 1,000 unit Capsule 1,000 unit PO HS coenzyme Q10 [CoQ-10] 100 mg Capsule 100 mg PO BID levetiracetam [Keppra] 500 mg Tablet 500 mg PO BID Qty: 60 0RF metoprolol tartrate 50 mg Tablet 50 mg PO BID Qty: 60 0RF bisacodyl [Dulcolax (bisacodyl)] 10 mg Suppository 10 mg MS DAILY PRN (Reason: Constipation) docusate sodium [Colace] 100 mg Capsule 100 mg PO BID diclofenac sodium [Voltaren Arthritis Pain] 1 % Gel 4 g EXT QID PRN (Reason: pain) Qty: 100 0RF Referrals Referrals: Fritz Campos DO [Primary Care Provider] -
[2021-09-30 20:01] LABS: Basophils # (auto) 0.06 K/uL (0-0.2); Basophils % (auto) 0.9 %; Eosinophils # (auto) 0.17 K/uL (0-0.50); Eosinophils % (auto) 2.5 %; Hematocrit (blood only) 45.6 % (40.1-51.0); Hemoglobin 14.8 g/dl (14.0-18.0); Immature Granulocytes # (auto) 0.02 K/uL (0.00-0.02); Immature Granulocytes % (auto) 0.3 %; Lymphocytes % (auto) 20.3 %; Mean Corpuscular Hgb Conc 32.5 g/dL (32.0-36.0); Mean Corpuscular Volume 92.5 fL (80.0-100.0); Mean Platelet Volume 10.7 fL (9.4-12.4); Monocytes # (auto) 0.61 K/uL (0.24-0.82); Monocytes % (auto) 8.8 %; Neutrophils # (auto) 4.65 K/uL (1.4-6.5); Neutrophils % (auto) 67.2 %; Platelet Count 213 K/uL (130-400); RDW Coefficient of Variation 14.3 % (11.5-14.5); RDW Standard Deviation 48.8 fL (36.4-46.3); Red Blood Count 4.93 M/uL (4.63-6.08); White Blood Count 6.91 K/ul (4.8-10.8)
--- NOTE | 2021-09-30 20:14 | XRay Report ---
XR chest 1V portable CLINICAL HISTORY: weakness. Evaluate cardiopulmonary status COMPARISON STUDY: 09/18/2021 TECHNIQUE: 1 view of the chest FINDINGS: Single frontal view of the chest demonstrates the heart to again be enlarged. There is a decreased in spiratory effort with elevation of the hemidiaphragms and crowding of the bronchovascular markings at the lung bases and centrally. The lungs are clear of alveolar opacities. There is no evidence for pl eural effusion. There is no evidence for vascular congestion. There is no acute osseous pathology. IMPRESSION: 1. There is a decreased inspiratory effort with otherwise no acute chest disease. ACT 112: Negative or not required by law. Electronically signed by: Benoit López M.D. 09/30/2021 8:11 PM
[2021-09-30 20:18] LABS: Alanine Aminotransferase 23 U/L (7-52); Albumin Level 3.9 gm/dl (3.4-5.0); Alkaline Phosphatase 148 U/L (34-104); Anion Gap 8 (3-11); BUN Creatinine Ratio 12.6 (10-20); Blood Urea Nitrogen 11 mg/dl (6-23); Calcium 9.5 mg/dl (8.5-10.1); Carbon Dioxide 24 mmol/L (21-32); Chloride 101 mmol/L (98-107); Est GFR (African American) 98.5 ml/min; Glucose 104 mg/dl (70-99(Fasting)); Magnesium 2.1 mg/dl (1.7-2.4); Sodium 133 mmol/L (136-145); Total Protein 7.9 gm/dl (6.0-8.3)
[2021-09-30 20:22] LABS: Troponin I High Sensitivity 6.6 pg/ml (0-20)
[2021-09-30 21:11] LABS: Appearance Urine Cloudy (Clear); Bacteria Urine Automated Negative (Negative); Bilirubin Urine Negative (Negative); Blood Urine 3+ (Negative); Color Urine Yellow; Epithelial Cell Urine Auto >30 /lpf (0-5); Glucose Urine UA Negative (Negative); Ketones Urine Negative (Negative); Leukocyte Esterase Urine 3+ (Negative); Nitrite Urine Positive (Negative); Protein Urine 1+ (Negative); Urobilinogen Urine Negative (Negative); WBC Urine Automated >30 /hpf (0-5); pH Urine 5.5 (4.5-7.5)
[2021-09-30] MEDS ORDERED: CEFEPIME 2,000 MG/20 ML VIAL IV STA (21:54)
--- NOTE | 2021-09-30 23:22 | History & Physical Report ---
Date of Service September 30, 2021 Assessment & Plan (1) Weakness: Plan: 76yo male presents with ongoing weakness, intermittent confusion. Was recently admitted to [facility] for seizure-like activity. Known dementia. ?progression of disease vs delirium state - contributing factors include recent hospitalization, UTI, medication changes -observation to medical -PT/OT evaluation -Frequent orientation (2) Acute UTI: Plan: Afebrile, HD stable, nontoxic in appearance. History of Pseudomonas UTI in the past, resistant to fluoroquinolones -Follow culture -Continue Cefepime (3) Dementia: Plan: Patient with dementia. ?progression of disease leading to present symptoms. -Frequent orientation -Monitor for oral pocketing -Aspiration precautions -Continue Namenda and Rivastigmine -PT/OT evaluation -Patient may benefit from home nursing - was working with PCP to try to get services vs hospice referral for additional help in the home (4) History of CVA (cerebrovascular accident): Plan: Patient with persistent right sided deficit -Continue ASA (5) Seizure-like activity: Plan: Newly diagnosed. Negative workup during last admission. -Continue keppra 500mg po BID (6) Hypertension: Plan: Chronic. Well controlled -Continue Metoprolol 50mg po BID (7) BARBARA (obstructive sleep apnea): Plan: Chronic -CPAP qHS (8) Atrial fibrillation with RVR: Plan: HR poorly controlled, 113 at present -Continue Metoprolol 50mg po BID -Continue Diltiazem 180mg po dailyl -Metoprolol IV as needed for HR >120 -Continue Apixaban History of Present Illness Chief Complaint: cognitive decline, UTI Primary Care Provider: Fritz Campos DO Ricardo Krishnan is a 75yo male with history of prior CVA with residual right sided weakness, HTN, HLP, CAD, AF on anticoagulation and dementia presenting with cognitive decline, difficulty swallowing pills and possible UTI. Patient was recently admitted to [facility] from 09/24/21 - 09/28/21 with possible seizure activity, staring spells and myoclonic jerking. He was loaded with IV Keppra in the ER. He had a CT of the head revealing an old right posterior temporoparietal infarct, enlarged ventricles, no acute process. EEG performed with no seizure focus identified. He was evaluated by Neurology and was ultimately discharged home on Keppra 500mg po BID with instruction to followup with Neurology . Patient lives at home and is cared for by his . She reports that patient has continued to have a poor mental state over the last several weeks. Also with decreased oral intake, lethargy and occasional confusion. 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 He has been having some difficulty swallowing his pills and his states that he is holding his food in his cheeks. She has not felt comfortable giving him his medications for the last day because she was concerned that he would choke. He had some diarrhea yesterday and noted some blood tinged urine in his depends. Patient provides very little in the form of history. He denies chest pain, shortness of breath or abdominal pain. ER Course: NSS x 500mL, Cefepime 2gm Allergies Allergy/AdvReac Type Severity Reaction Status Date / Time isopropyl alcohol Allergy Severe RUBBING Verified 09/30/21 22:03 ALCOHOL - SHORTNESS OF BREATH adhesive Allergy Intermediate BLISTERS Verified 09/30/21 22:03 escitalopram Allergy Unknown UNSURE-DOES Verified 09/30/21 22:03 NOT KNOW oxycodone AdvReac Mild CONFUSION Verified 09/30/21 22:03 lisinopril AdvReac Unknown elevated Verified 09/30/21 22:03 creatinine Home Medications Medication Instructions Recorded Confirmed Type cholecalciferol (vitamin D3) 25 1,000 unit PO HS 02/13/18 09/30/21 History mcg (1,000 unit) capsule (Vitamin D3) coenzyme Q10 100 mg capsule 100 mg PO BID 02/13/18 09/30/21 History (CoQ-10) polyethylene glycol 3350 17 17 g PO QAM 06/04/20 09/30/21 History gram/dose oral powder (Miralax) acetaminophen 500 mg tablet 1,000 mg PO BID Pain #120 tabs 06/14/20 09/30/21 Rx (Tylenol Extra Strength) memantine 10 mg tablet (Namenda) 10 mg PO BID #180 tabs 06/14/20 09/30/21 Rx aspirin 81 mg tablet,delayed 81 mg PO QAM #90 tabs 09/08/20 09/30/21 Rx release (Pieter Low Dose Aspirin) tamsulosin 0.4 mg capsule (Flomax) 0.4 mg PO HS #90 caps 11/22/20 09/30/21 Rx bisacodyl 10 mg rectal suppository 10 mg WA DAILY PRN Constipation 12/28/20 09/30/21 History (Dulcolax (bisacodyl)) docusate sodium 100 mg capsule 100 mg PO BID 12/28/20 09/30/21 History (Colace) rivastigmine tartrate 3 mg capsule 3 mg PO QAM 12/31/20 09/30/21 History diclofenac sodium 1 % topical gel 4 g EXT QID PRN pain #100 grams 04/15/21 09/30/21 Rx (Voltaren Arthritis Pain) nitroglycerin 0.4 mg sublingual 0.4 mg sublingual Q5M PRN chest 04/19/21 09/30/21 Rx tablet pain #25 tabs diltiazem HCl 180 mg 180 mg PO QAM #90 caps 05/04/21 09/30/21 Rx capsule,extended release 24 hr cyanocobalamin (vitamin B-12) 1,000 mcg PO DAILY #30 caps 06/30/21 09/30/21 Rx 1,000 mcg capsule clotrimazole 1 % topical cream 1 applic topical BID PRN Skin 07/28/21 09/30/21 History Irritation d-mannose 500 mg capsule 1,000 mg PO QAM 07/28/21 09/30/21 History nystatin 100,000 unit/gram topical 1 applic topical QID #60 grams 07/28/21 09/30/21 Rx powder apixaban 5 mg tablet (Eliquis) 5 mg PO BID #180 tabs 09/13/21 09/30/21 Rx levetiracetam 500 mg tablet 500 mg PO BID #60 tabs 09/28/21 09/30/21 Rx (Keppra) metoprolol tartrate 50 mg tablet 50 mg PO BID #60 tabs 09/28/21 09/30/21 Rx Mattress (Air or other) #1 ea 09/29/21 09/30/21 Rx Past Med/Surg History Medical History Acute hypotension Acute kidney injury Acute urinary retention Atrial fibrillation with RVR CAD (coronary artery disease) CAD (coronary artery disease) CHF (congestive heart failure) Closed fracture of radial head Constipation CVA (cerebral vascular accident) Gastroesophageal reflux disease Hyperlipidemia Hypertension Ileus Nephrolithiasis BARBARA (obstructive sleep apnea) Small bowel obstruction Symptomatic bradycardia Urinary retention Surgical History History of knee replacement History of PTCA Family History Father Stroke Mother Myocardial infarction Aunt Diabetes Family/Other Heart disease Hypertension Nephrolithiasis Other Dementia Denies family history of Prostate cancer Social History Smoking Status: Unknown if ever smoked Second Hand Exposure: No; Hx Alcohol Use: No Hx Substance Use: No Preferred Language: [place] Communication Ability: Unable Visual Impairment: Limited Hearing Ability: Normal Residential Supervisor Required: No Beliefs That Will Affect Care: None marital status: Current Living Situation: Spouse current occupational status: retired How many Children do You have: 1 Feels Safe at Home: Yes Childhood Exposure to Second-Hand Smoke: Yes caffeine: No Physical Activity Frequency: Does not Exercise Seatbelt Use: always Sunscreen Use: No (not in the sun) Assistive Devices: CPAP, Hospital Bed, Lift Chair and Mechanical Lift Review of Systems Review of Systems: Unobtainable due to cognitive status Physical Exam Physical Exam: General: elderly demented patient resting comfortably, NAD, non-toxic in appearance, answers some questions and follows commands, calls out for Skin: warm, dry, intact, no rashes or lesions HEENT: NC/AT, PERRL, EOMI, anicteric sclera, conjunctiva without injection, external ear normal to inspection and nontender, nares patent, dry mucus membranes, dentition intact, no oropharyngeal lesions, neck supple, trachea midline, no LAD, no thyromegaly, no JVD Heart: +S1/S2, irregularly irregular, tachycardic, no m/r/g Lungs: equal air entry bilaterally, no rales/rhonchi/wheezes Abd: +BS, soft, NT/ND, no masses/organomegaly/ascites Ext: warm, 2+ pulses in UE/LE bilaterally, no clubbing/cyanosis or edema Results & Data Results & Data ([facility]) Vital Signs (Past 12 Hours) Vital Signs Temp Pulse Pulse Resp BP BP Pulse Ox 09/30/21 22:36 98 H 22 142/89 H 97 09/30/21 21:02 97 09/30/21 20:50 97 09/30/21 20:49 80 20 134/96 97 09/30/21 19:20 37.2 C 111 H 16 134/96 96 O2 Del Method 09/30/21 22:36 Room Air 09/30/21 21:02 Room Air 09/30/21 20:50 Room Air 09/30/21 20:49 Room Air 09/30/21 19:20 Room Air Laboratory Results Laboratory Results WBC 6.91 K/ul (4.8-10.8) 09/30/21 19:36 RBC 4.93 M/uL (4.63-6.08) 09/30/21 19:36 Hgb 14.8 g/dl (14.0-18.0) 09/30/21 19:36 Hct 45.6 % (40.1-51.0) 09/30/21 19:36 MCV 92.5 fL (80.0-100.0) 09/30/21 19:36 MCH 30.0 pg (25.0-34.0) 09/30/21 19:36 MCHC 32.5 g/dL (32.0-36.0) 09/30/21 19:36 RDW Std Deviation 48.8 fL (36.4-46.3) H 09/30/21 19:36 RDW Coeff of Alex 14.3 % (11.5-14.5) 09/30/21 19:36 Plt Count 213 K/uL (130-400) 09/30/21 19:36 MPV 10.7 fL (9.4-12.4) 09/30/21 19:36 Immature Gran % (Auto) 0.3 % 09/30/21 19:36 Neut % (Auto) 67.2 % 09/30/21 19:36 Lymph % (Auto) 20.3 % 09/30/21 19:36 [place] % (Auto) 8.8 % 09/30/21 19:36 Eos % (Auto) 2.5 % 09/30/21 19:36 Baso % (Auto) 0.9 % 09/30/21 19:36 Neut # (Auto) 4.65 K/uL (1.4-6.5) 09/30/21 19:36 Lymph # (Auto) 1.40 K/uL (1.2-3.4) 09/30/21 19:36 [place] # (Auto) 0.61 K/uL (0.24-0.82) 09/30/21 19:36 Eos # (Auto) 0.17 K/uL (0-0.50) 09/30/21 19:36 Baso # (Auto) 0.06 K/uL (0-0.2) 09/30/21 19:36 Immature Gran # (Auto) 0.02 K/uL (0.00-0.02) 09/30/21 19:36 Sodium 133 mmol/L (136-145) L 09/30/21 19:36 Potassium 4.0 mmol/L (3.5-5.1) 09/30/21 22:48 Chloride 101 mmol/L (98-107) 09/30/21 19:36 Carbon Dioxide 24 mmol/L (21-32) 09/30/21 19:36 Anion Gap 8 (3-11) 09/30/21 19:36 BUN 11 mg/dl (6-23) 09/30/21 19:36 Creatinine 0.87 mg/dl (0.6-1.4) 09/30/21 19:36 Est Cr Clr Drug Dosing Not Reportable 09/30/21 19:36 Est GFR ( Amer) 98.5 ml/min 09/30/21 19:36 Est GFR (Non-Af Amer) 85.0 ml/min 09/30/21 19:36 BUN/Creatinine Ratio 12.6 (10-20) 09/30/21 19:36 Glucose 104 mg/dl (70-99(Fasting)) H 09/30/21 19:36 Lactate 1.2 mmol/L (0.4-2.0) 09/30/21 19:36 Calcium 9.5 mg/dl (8.5-10.1) 09/30/21 19:36 Magnesium 2.1 mg/dl (1.7-2.4) 09/30/21 19:36 Total Bilirubin 1.0 mg/dl (0.2-1.0) 09/30/21 19:36 AST 23 U/L (13-39) 09/30/21 22:48 ALT 23 U/L (7-52) 09/30/21 19:36 Alkaline Phosphatase 148 U/L (34-104) H 09/30/21 19:36 Troponin I High Sens 6.6 pg/ml (0-20) 09/30/21 19:36 Total Protein 7.9 gm/dl (6.0-8.3) 09/30/21 19:36 Albumin 3.9 gm/dl (3.4-5.0) 09/30/21 19:36 Globulin 4.0 gm/dl (2.5-4.0) 09/30/21 19:36 Albumin/Globulin Ratio 1.0 (0.9-2) 09/30/21 19:36 TSH 2.841 uIu/ml (0.300-4.500) 09/30/21 19:36 Urine Color Yellow 09/30/21 20:53 Urine Appearance Cloudy (Clear) A 09/30/21 20:53 Urine pH 5.5 (4.5-7.5) 09/30/21 20:53 Ur Specific [place] 1.010 (1.000-1.030) 09/30/21 20:53 Urine Protein 1+ (Negative) H 09/30/21 20:53 Urine Glucose (UA) Negative (Negative) 09/30/21 20:53 Urine Ketones Negative (Negative) 09/30/21 20:53 Urine Blood 3+ (Negative) H 09/30/21 20:53 Urine Nitrite Positive (Negative) A 09/30/21 20:53 Urine Bilirubin Negative (Negative) 09/30/21 20:53 Urine Urobilinogen Negative (Negative) 09/30/21 20:53 Ur Leukocyte Esterase 3+ (Negative) H 09/30/21 20:53 Urine WBC (Auto) >30 /hpf (0-5) H 09/30/21 20:53 Urine RBC (Auto) 5-10 /hpf (0-4) H 09/30/21 20:53 U Hyaline Cast (Auto) 1-5 /lpf (0-5) 09/30/21 20:53 U Epithel Cells (Auto) >30 /lpf (0-5) H 09/30/21 20:53 Urine Bacteria (Auto) Negative (Negative) 09/30/21 20:53 SARS-CoV-2, RNA, NAAT NEGATIVE (NEGATIVE) 09/30/21 20:25 Impressions Chest X-Ray 09/30/21 19:26 XR chest 1V portable CLINICAL HISTORY: weakness. Evaluate cardiopulmonary status COMPARISON STUDY: 09/18/2021 TECHNIQUE: 1 view of the chest FINDINGS: Single frontal view of the chest demonstrates the heart to again be enlarged. There is a decreased inspiratory effort with elevation of the hemidiaphragms and crowding of the bronchovascular markings at the lung bases and centrally. The lungs are clear of alveolar opacities. There is no evidence for pleural effusion. There is no evidence for vascular congestion. There is no acute osseous pathology. IMPRESSION: 1. There is a decreased inspiratory effort with otherwise no acute chest disease. ACT 112: Negative or not required by law. Electronically signed by: Benoit López M.D. 09/30/2021 8:11 PM ECG Additional Comments: EKG with AF at 103, QRS=80, PNv=451 ST-T abnormalities, TWI in anterior and lateral leads PG Care Time/CCT Total # of Minutes Spent Total Time Spent with Patient: Total time spent is greater than 50% in coordination of care (as documented) at patient's floor/unit and/or counseling patient: Coding Level of Care Code INT OBSERVATION CARE 70M LVL 3 Diagnoses Weakness R53.1 Acute UTI N39.0 Dementia F03.90 Dementia behavioral disturbance: without behavioral disturbance Dementia type: unspecified type History of CVA (cerebrovascular accident) Z86.73 Seizure-like activity R56.9 Hypertension I10 Hypertension type: unspecified BARBARA (obstructive sleep apnea) G47.33 Atrial fibrillation with RVR I48.91 (1) Dementia Dementia behavioral disturbance: without behavioral disturbance Dementia type: unspecified type Qualified Code(s): F03.90 - Unspecified dementia without behavioral disturbance (2) Hypertension Hypertension type: unspecified Qualified Code(s): I10 - Essential (primary) hypertension
[2021-10-01] MEDS ORDERED: bisacodyL 10 MG SUPP PR PRN (00:48)
[2021-10-01] MEDS ORDERED: METOPROLOL TARTRATE 1 MG/ML VIAL IV PRN ×2 (00:48→05:40)
[2021-10-01] MEDS ORDERED: ONDANSETRON INJ 2 MG/ML 2 ML VIAL IV PRN (00:48)
--- NOTE | 2021-10-01 01:32 | Communication Note ---
Date of Service: October 01, 2021 Upgrading to [employer] to allow use of PRN metoprolol as patient is in RVR 140s. Yesterday's K>4 and Mg>2. PRN Lopressor q15min apart up to 3 doses ordered.
[2021-10-01] MEDS ORDERED: METOPROLOL TARTRATE 1 MG/ML VIAL IV ONE (03:21)
[2021-10-01 07:06] LABS: Basophils # (auto) 0.06 K/uL (0-0.2); Basophils % (auto) 0.8 %; Eosinophils # (auto) 0.16 K/uL (0-0.50); Hematocrit (blood only) 43.6 % (40.1-51.0); Hemoglobin 14.4 g/dl (14.0-18.0); Immature Granulocytes # (auto) 0.03 K/uL (0.00-0.02); Immature Granulocytes % (auto) 0.4 %; Lymphocytes # (auto) 1.73 K/uL (1.2-3.4); Lymphocytes % (auto) 21.9 %; Mean Corpuscular Hemoglobin 29.9 pg (25.0-34.0); Mean Corpuscular Volume 90.6 fL (80.0-100.0); Mean Platelet Volume 10.5 fL (9.4-12.4); Monocytes # (auto) 0.68 K/uL (0.24-0.82); Monocytes % (auto) 8.6 %; Neutrophils # (auto) 5.24 K/uL (1.4-6.5); Neutrophils % (auto) 66.3 %; Platelet Count 207 K/uL (130-400); RDW Coefficient of Variation 14.5 % (11.5-14.5); RDW Standard Deviation 48.5 fL (36.4-46.3); Red Blood Count 4.81 M/uL (4.63-6.08)
[2021-10-01 07:30] LABS: BUN Creatinine Ratio 12.9 (10-20); Calcium 9.2 mg/dl (8.5-10.1); Creatinine Clr Calc Pharmacy 77.5 ml/min; Est GFR (African American) 98.8 ml/min; Est GFR (Non-African American) 85.2 ml/min
[2021-10-01 07:31] LABS: Albumin Level 3.7 gm/dl (3.4-5.0); Bilirubin Direct 0.2 mg/dl (0-0.2); Total Protein 7.3 gm/dl (6.0-8.3)
[2021-10-01] MEDS ORDERED: CEFEPIME 1,000 MG in SYRINGE 0 ML IV SCH (09:00)
[2021-10-01] MEDS: CEFEPIME 2,000 MG in SYRINGE 0 ML IV SCH ×2 (09:10→22:12)
[2021-10-01] MEDS: ACETAMINOPHEN 500 MG TAB PO SCH ×2 (09:17→22:12)
[2021-10-01] MEDS: RIVASTIGMINE TARTRATE 1.5 MG CAP PO SCH (09:17)
[2021-10-01] MEDS: POLYETHYLENE (MIRALAX) 17 GM PACK PO SCH (09:17)
[2021-10-01] MEDS: DOCUSATE SODIUM 100 MG CAP PO SCH ×2 (09:18→22:12)
[2021-10-01] MEDS: dilTIAZem HCL 180 MG CAPCR PO SCH (09:18)
[2021-10-01] MEDS: ASPIRIN 81 MG ECTAB PO SCH (09:19)
[2021-10-01] MEDS: levETIRAcetam 500 MG TAB PO SCH ×2 (09:19→22:08)
[2021-10-01] MEDS: APIXABAN 5 MG TABLET PO SCH ×2 (09:19→22:07)
[2021-10-01] MEDS: NYSTATIN POWDER 15GM BTL EXT SCH ×4 (09:20→22:10)
[2021-10-01] MEDS: METOPROLOL TARTRATE 50 MG TAB PO SCH ×2 (09:20→22:09)
[2021-10-01] MEDS: MEMANTINE HCL 10 MG TAB PO SCH ×2 (09:20→22:08)
--- NOTE | 2021-10-01 11:59 | Electrocardiogram Report ---
Test Reason : Blood Pressure : / mmHG Vent. Rate : 103 BPM Atrial Rate : 110 BPM P-R Int : 000 ms QRS Dur : 080 ms QT Int : 350 ms P-R-T Axes : 000 -20 151 degrees QTc Int : 458 ms Atrial fibrillation with rapid ventricular response Left ventricular hypertrophy with repolarization abnormality Posterior infarct (cited on or before 26-SEP-2021) Abnormal ECG When compared with ECG of 26-SEP-2021 20:25, T wave inversion now evident in Anterior leads Confirmed by Benito Johnston ([id number]) on 10/01/2021 11:58:55 AM Referred By: PORTILLO PCP Confirmed By:Benito Johnston
--- NOTE | 2021-10-01 16:28 | Hospitalist Progress Note ---
Date of Service October 01, 2021 Assessment & Plan (1) Weakness: Plan: 76yo male presents with ongoing weakness, intermittent confusion. Was recently admitted to [facility] for seizure-like activity. Known dementia. ?progression of disease vs delirium state - contributing factors include recent hospitalization, UTI, medication changes -He was more interactive in AM but sleeping most of afternoon but was admitted late at night. Discussed with his that we are awaiting his Urine Cx but wonder if this is simply colonization. Continue Cefepime for now. Obtain Keppra level since this is a new medication and possibly contributing. However, this may simply be further progression of this known dementia. His MRI from last admission revealed hydrocephalus, diffuse atrophy, and microvascular ischemic changes. Given recently discharged home this could even be from that transition. He seems to be pocketing food and not having much interest in eating. I did bridge hospice considerations as feels she needs more help and understands his dementia will continue to progress. She would like to have [facility] first that can convert to hospice. - Will await UCx finalization and Keppra level to see if this is contributing or if a reversible cause can be identified (2) Acute UTI: Plan: Afebrile, HD stable, nontoxic in appearance. History of Pseudomonas UTI in the past, resistant to fluoroquinolones -Follow culture - currently with staph species -Continue Cefepime (3) Dementia: Plan: Patient with dementia. ?progression of disease leading to present symptoms. -Frequent orientation -Monitor for oral pocketing -Aspiration precautions -Continue Namenda and Rivastigmine -PT/OT evaluation -Patient may benefit from home nursing - was working with PCP to try to get services vs hospice referral for additional help in the home. expresses a history of a bad experience at SNF so would like to avoid this (4) History of CVA (cerebrovascular accident): Plan: Patient with persistent right sided deficit -Continue ASA (5) Seizure-like activity: Plan: Newly diagnosed. Negative workup during last admission. -Continue keppra 500mg po BID. Obtain Keppra level (6) Hypertension: Plan: Chronic. Well controlled -Continue Metoprolol 50mg po BID (7) BARBARA (obstructive sleep apnea): Plan: Chronic -CPAP qHS (8) Atrial fibrillation with RVR: Plan: HR poorly controlled - might have to accept low teens as he seems unbothered. When he is at rest he can have pauses and HR in 40-60. Pauses < 4 sec but will continue to monitor. He did have addition IV Lopressor so may be contributing -Continue Metoprolol 50mg po BID -Continue Diltiazem 180mg po dailyl -Continue Apixaban Admission and Anticipated Discharge Date Admission Date: September 30, 2021 Supervising Physician Co-Signing Physician Notes PA Supervision Note: I did not personally see or examine the patient today, but I verified all jang points of STEPH Shabazz's assessment and plan with the following exceptions/additions: None Subjective Patient noted to be generally lethargic most of the day. He was more interactive this morning during my assessment. Answers mostly yes/no questions. When asked how he was he stated "I love my ". He denied any specific symptoms. Revisited this afternoon to update his . He is more sleepy this afternoon. Wakes up just a bit then falls back asleep. His reports he has been doing more and more of that over the past couple weeks. She is having difficulty feeding him as sometimes he will just pocket the food and she is concerned of him choking. She thinks she needs more assistance and help but does not want him in a senior living because of bad experiences in the past. She states he mostly just lays in bed. We did bridge hospice services. She is interested in this but would like to do home health first and convert to possible hospice. His UA is growing staph. He is afebrile. His HR has been variable. He was tachy on admission but now varying 40-60 with 3 sec pauses occ. THis is likely related to his rate control meds and the additional IV he received. Will monitor. He is also sleeping more this afternoon which could be contributing. Review of Systems Review of Systems: 10 point review of systems completed. Unremarkable as stated above. However given his advanced advanced dementia he appears to say no to most answers. Physical Exam Physical Exam: PHYSICAL EXAM General Appearance: WDWN in NAD who is A&O x 1 HEENT: Head is normocephalic/atraumatic; Hearing grossly intact; Mucous membranes moist Neck: Supple; Trachea midline; Neg JVD Heart: RRR with no M/G/R Lungs: CTA in all lung dale bilaterally; Respirations unlabored; Neg accessory muscle use Abdomen: Soft, non-tender, non-distended; Positive BS x 4 quadrants Extremities: Neg cyanosis or edema Neurological: Speech clear but speaks minimally Psychiatric: Minimal eye contact; flat affect Skin: Normal Color; Warm/Dry Results & Data Results & Data ([facility]) Vital Signs (Past 12 Hours) Vital Signs Temp Pulse Pulse Resp BP BP BP 10/01/21 16:02 37.1 C 68 20 108/75 10/01/21 15:52 60 10/01/21 11:54 36.9 C 63 18 101/69 10/01/21 07:00 88 10/01/21 10:14 10/01/21 08:16 36.3 C L 81 18 115/71 10/01/21 05:55 142 H 129/74 Pulse Ox O2 Del Method 10/01/21 16:02 94 Room Air 10/01/21 15:52 10/01/21 11:54 97 Room Air 10/01/21 07:00 10/01/21 10:14 Room Air 10/01/21 08:16 94 Room Air 10/01/21 05:55 PG Care Time/CCT Total # of Minutes Spent Total Time Spent with Patient: Total time spent is greater than 50% in coordination of care (as documented) at patient's floor/unit and/or counseling patient: Coding Level of Care Code 79547 Subseq Obs Care Lvl 3 Diagnoses Weakness R53.1 Acute UTI N39.0 Dementia F03.90 Dementia behavioral disturbance: without behavioral disturbance Dementia type: unspecified type History of CVA (cerebrovascular accident) Z86.73 Seizure-like activity R56.9 Hypertension I10 Hypertension type: unspecified BARBARA (obstructive sleep apnea) G47.33 Atrial fibrillation with RVR I48.91 (1) Dementia Dementia behavioral disturbance: without behavioral disturbance Dementia type: unspecified type Qualified Code(s): F03.90 - Unspecified dementia without behavioral disturbance (2) Hypertension Hypertension type: unspecified Qualified Code(s): I10 - Essential (primary) hypertension
[2021-10-01] MEDS: TAMSULOSIN HCL 0.4 MG CAP PO SCH (22:09)
--- NOTE | 2021-10-02 00:44 | Communication Note ---
Date of Service: October 02, 2021 Patient has had multiple pauses on telemetry. I was messaged about a 3.2 sec pause. Rhythm is permanent afib in the 80s. He had a 3.7 sec pause and a 3.0 sec pause during dayshift yesterday. Holding AM PO metoprolol. Rechecking BMP, Mg in AM. Patient had cardiology consults in 05/2021 and 06/2021. At the time, was evaluated for bradycardia and vagal-type episodes. Pacemaker was deferred. With pauses above, consider cardiology consult for re-eval. Likely has conduction dysfunction.
[2021-10-02] MEDS: ASPIRIN 81 MG ECTAB PO SCH (08:32)
[2021-10-02] MEDS: APIXABAN 5 MG TABLET PO SCH ×2 (08:32→20:52)
[2021-10-02] MEDS: levETIRAcetam 500 MG TAB PO SCH ×2 (08:32→20:52)
[2021-10-02] MEDS: MEMANTINE HCL 10 MG TAB PO SCH ×2 (08:32→20:52)
[2021-10-02] MEDS: dilTIAZem HCL 180 MG CAPCR PO SCH (08:32)
[2021-10-02] MEDS: RIVASTIGMINE TARTRATE 1.5 MG CAP PO SCH (08:32)
[2021-10-02] MEDS: POLYETHYLENE (MIRALAX) 17 GM PACK PO SCH (08:33)
[2021-10-02] MEDS: DOCUSATE SODIUM 100 MG CAP PO SCH ×2 (08:33→20:55)
[2021-10-02] MEDS: NYSTATIN POWDER 15GM BTL EXT SCH ×4 (08:33→20:51)
[2021-10-02] MEDS: ACETAMINOPHEN 500 MG TAB PO SCH ×2 (08:35→20:54)
[2021-10-02] MEDS: CEFEPIME 2,000 MG in SYRINGE 0 ML IV SCH (08:35)
--- NOTE | 2021-10-02 12:35 | Hospitalist Progress Note ---
Date of Service October 02, 2021 Assessment & Plan (1) Weakness: Plan: 76yo male presents with ongoing weakness, intermittent confusion. Was recently admitted to [facility] for seizure-like activity. Known dementia. ?progression of disease vs delirium state - contributing factors include recent hospitalization, possible UTI, medication changes -He generally remains lethargic. Will answer questions with simple answers but not very interactive. noted he was like that over the past few weeks and noted he won't open his eyes much anymore when talking when it used to just be the R eye he wouldn't open. UCx with MSSA which is possibly just colonization. Given NGTD on BCx suspicion low for endocarditis. Downgrade Cefepime to Rocephin and will monitor for now to see if any clinical response. Obtain Keppra level since this is a new medication and possibly contributing. However, this may simply be further progression of this known dementia. His MRI from last admission revealed hydrocephalus, diffuse atrophy, and microvascular ischemic changes. Given recently discharged home this could even be from that transition. He seems to be pocketing food and not having much interest in eating per . I did bridge hospice considerations as feels she needs more help and understands his dementia will continue to progress. She would like to have [facility] first that can convert to hospice. -- Discussed with DOT COMPLIANCE COORDINATOR. A gladys will be his willingness to participate and w ant to eat. He was able to accept pudding, ice cream, and water today. Did not pocket food or spit it out but suspect he could likely do this time to time. Recommending to continue pureed, meds crushed in carrier, and alternate solids/liquids. If he pockets then stop the feeding session. Also recommending to focus on pleasure foods. - Will await Keppra level to see if this is contributing or if another reversible cause can be identified. Will discuss further possibly palliative approach with when she arrives today. (2) Acute UTI: Plan: Afebrile, HD stable, nontoxic in appearance. History of Pseudomonas UTI in the past, resistant to fluoroquinolones -Current cx with MSSA as discussed above. Tx as above (3) Dementia: Plan: Patient with dementia. ?progression of disease leading to present symptoms. -Frequent orientation -Monitor for oral pocketing -Aspiration precautions -Continue Namenda and Rivastigmine -PT/OT/DOT COMPLIANCE COORDINATOR evaluation -Patient may benefit from home nursing - was working with PCP to try to get services vs hospice referral for additional help in the home. expresses a history of a bad experience at SNF so would like to avoid this (4) History of CVA (cerebrovascular accident): Plan: Patient with persistent right sided deficit -Continue ASA (5) Seizure-like activity: Plan: Newly diagnosed. Negative workup during last admission. -Continue keppra 500mg po BID. Obtain Keppra level (6) Hypertension: Plan: Chronic. Well controlled (7) BARBARA (obstructive sleep apnea): Plan: Chronic -CPAP qHS (8) Atrial fibrillation with RVR: Plan: HR poorly controlled - might have to accept low teens as he seems unbothered. When he is at rest he can have pauses and HR in 40-60. Pauses < 4 sec but will continue to monitor. He did have addition IV Lopressor so may be contributing? -Possibly reduce Metoprolol but he ranges wide between 40-140. Will discuss if would want a pacer placed to allow for better HR control. However patient also laying in bed and appears rather unbothered. If this is something she would want to consider can consult cardiology -Continue Diltiazem 180mg po daily -Continue Apixaban Admission and Anticipated Discharge Date Admission Date: September 30, 2021 Supervising Physician Co-Signing Physician Notes PA Supervision Note: I did not personally see or examine the patient today, but I verified all jang points of STEPH Shabazz's assessment and plan with the following exceptions/additions: None Subjective Patient continues to be lethargic today. He will answer yes/no questions but not very interactive. He verbalizes no complaints but ROS limited due to lethargy. He was noted to have more pauses overnight. Patient is laying in bed so hard to fully guage if symptomatic but no noted episodes of LOC. His Metoprolol was held this AM. His UCx has MSSA with BCx NGTD. Question possibility of contamination vs colonization. He remains afebrile. Can at least downgrade Cefepime to Rocephin for time being. Discussed with DOT COMPLIANCE COORDINATOR. A gladys will be his willingness to participate and want to eat. He was able to accept pudding, ice cream, and water today. Did not pocket food or spit it out but suspect he could likely do this time to time. Recommending to continue pureed, meds crushed in carrier, and alternate solids/liquids. If he pockets then stop the feeding session. Also recommending to focus on pleasure foods. Review of Systems Review of Systems: 10 point review of systems not completed due to lethargy. Denies pain. Reports being tired. Physical Exam Physical Exam: PHYSICAL EXAM General Appearance: Frail elderlly male in NAD who is A&O x 1 HEENT: Head is normocephalic/atraumatic; Hearing grossly intact; Mucous membranes moist Neck: Supple; Trachea midline; Neg JVD Heart: RRR with no M/G/R Lungs: CTA in all lung dale bilaterally; Respirations unlabored; Neg accessory muscle use Abdomen: Soft, non-tender, non-distended; Positive BS x 4 quadrants Extremities: Neg cyanosis or edema Neurological: Speech clear but speaks minimally Psychiatric: No eye contact. Mostly keeps R eye closed and minimally opening L eye. Answers with simple answers Skin: Normal Color; Warm/Dry Results & Data Results & Data ([facility]) Vital Signs (Past 12 Hours) Vital Signs Temp Pulse Pulse Resp BP BP Pulse Ox 10/02/21 10:58 36.3 C L 85 20 115/72 96 10/02/21 10:34 88 10/02/21 08:00 36.0 C L 84 18 126/75 90 10/02/21 07:30 10/02/21 02:57 36.8 C 92 H 18 135/93 93 O2 Del Method 10/02/21 10:58 Room Air 10/02/21 10:34 10/02/21 08:00 Room Air 10/02/21 07:30 Room Air 10/02/21 02:57 Room Air PG Care Time/CCT Total # of Minutes Spent Total Time Spent with Patient: Total time spent is greater than 50% in coordination of care (as documented) at patient's floor/unit and/or counseling patient: Coding Level of Care Code 71836 Subseq Hosp Care Lvl 3 Diagnoses Weakness R53.1 Acute UTI N39.0 Dementia F03.90 Dementia behavioral disturbance: without behavioral disturbance Dementia type: unspecified type History of CVA (cerebrovascular accident) Z86.73 Seizure-like activity R56.9 Hypertension I10 Hypertension type: unspecified BARBARA (obstructive sleep apnea) G47.33 Atrial fibrillation with RVR I48.91 (1) Dementia Dementia behavioral disturbance: without behavioral disturbance Dementia type: unspecified type Qualified Code(s): F03.90 - Unspecified dementia without behavioral disturbance (2) Hypertension Hypertension type: unspecified Qualified Code(s): I10 - Essential (primary) hypertension
[2021-10-02] MEDS ORDERED: cefTRIAXone SODIUM 1,000 MG in DEXTROSE 5% 50 ML IV SCH (13:00)
[2021-10-02] MEDS ORDERED: cefTRIAXone SODIUM 2,000 MG in DEXTROSE 5% 50 ML IV SCH (13:30)
[2021-10-02] MEDS ORDERED: SODIUM CHLORIDE 0.9% 1000ML 1,000 ML IV SCH (18:00)
--- NOTE | 2021-10-02 18:39 | CT Scan Report ---
CT head/brain wo con CLINICAL HISTORY: Acute change in mental status; ventriculomegaly COMPARISON STUDY: 09/24/2021 CT DOSE: 729.78 mGycm TECHNIQUE: Standard CT of the Brain was performed without IV contrast. A dose lowering technique was utilized adhering to the principles of ALARA. FINDINGS: Extraaxial space: There is no evidence for subdural hematoma. There are no extra-axial fluid collecti ons. Ventricles and cisterns: The ventricles are again moderately to markedly dilated bilaterally. There i s no evidence for midline shift or mass effect. Parenchyma: There is no subarachnoid or intraparenchymal hemorrhage. There is no evidence for an acut e infarct or cerebral edema. There is mild cerebral cortical atrophy and decreased attenuation in the periventricular white matter representing remote small vessel disease. There are no gross mass lesio ns. Osseous structures: There is no evidence for an acute fracture. The visualized paranasal sinuses are clear. The mastoid air cells are clear bilaterally. Soft tissues: There is no evidence for focal soft tissue swelling. IMPRESSION: 1. No acute intracerebral pathology. 2. Cerebral cortical atrophy and extensive remote small vessel disease are again seen. ACT 112: Negative or not required by law. Electronically signed by: Benoit López M.D. 10/02/2021 6:36 PM
[2021-10-02] MEDS: TAMSULOSIN HCL 0.4 MG CAP PO SCH (20:52)
[2021-10-03] MEDS: MEMANTINE HCL 10 MG TAB PO SCH ×2 (07:45→20:17)
[2021-10-03] MEDS: APIXABAN 5 MG TABLET PO SCH ×2 (07:45→20:17)
[2021-10-03] MEDS: ASPIRIN 81 MG ECTAB PO SCH (07:45)
[2021-10-03] MEDS: levETIRAcetam 500 MG TAB PO SCH (07:45)
[2021-10-03] MEDS: dilTIAZem HCL 180 MG CAPCR PO SCH (07:46)
[2021-10-03] MEDS: NYSTATIN POWDER 15GM BTL EXT SCH ×4 (07:46→20:56)
[2021-10-03] MEDS: RIVASTIGMINE TARTRATE 1.5 MG CAP PO SCH (07:46)
[2021-10-03] MEDS: POLYETHYLENE (MIRALAX) 17 GM PACK PO SCH (07:46)
[2021-10-03] MEDS: DOCUSATE SODIUM 100 MG CAP PO SCH ×2 (07:49→20:58)
[2021-10-03] MEDS: ACETAMINOPHEN 500 MG TAB PO SCH ×2 (07:49→20:58)
--- NOTE | 2021-10-03 07:51 | Hospitalist Progress Note ---
Date of Service October 03, 2021 Assessment & Plan (1) Weakness: Plan: 76yo male presents with ongoing weakness, intermittent confusion. Was recently admitted to [facility] for seizure-like activity. Known dementia. ?progression of disease vs delirium state - contributing factors include recent hospitalization, possible UTI, medication changes He generally remains lethargic. Will answer questions with simple answers but not very interactive. noted he was like that over the past few weeks and noted he won't open his eyes much anymore when talking when it used to just be the R eye he wouldn't open. Of note, admit earlier this month, did have exposure to COVID per notes -> COVID on admit negative, consider repeat testing if needed. --> No SOB/hypoxia at current UCx with MSSA which is possibly just contamination. UA with nitrites more indicative of Gram negative infection --> Urine is DARKENED/sediment --> Dry on exam, 1L NSS ordered (got some NSS yesterday) NGTD on BCx suspicion low for endocarditis. Cefepime --> Rocephin --> ancef to ensure getting as poor PO intake for 5 day course Keppra level pending (new med, ?could be from this) MRI last admit with hydrocephalus, diffuse atrophy, microvascular ischemic changes. Poor imaging due to motion artifact. Of note, prior lung nodule Mar 2021, MRI was done WITHOUT contrast Discussion with evening 10/02 and palliative consutled for today LICENSED PRACTICAL NURSE CLINIC NURSE: gladys willingness to participate. . He was able to accept pudding, ice cream, and water today. Did not pocket food or spit it out but suspect he could likely do this time to time. Recommending to continue pureed, meds crushed in carrier, and alternate solids/liquids. If he pockets then stop the feeding session. Also recommending to focus on pleasure foods. Continued inpatient stay (2) Acute UTI: Plan: Afebrile, HD stable, nontoxic in appearance. History of Pseudomonas UTI in the past, resistant to fluoroquinolones -Current cx with MSSA as discussed above. - Tx as above (3) Dementia: Plan: Patient with dementia. ?progression of disease leading to present symptoms. Prior B12 level low and on replacement, will repeat level TSH wnl Frequent orientation -Monitor for oral pocketing -Aspiration precautions -Continue Namenda and Rivastigmine -PT/OT/LICENSED PRACTICAL NURSE CLINIC NURSE evaluation -Patient may benefit from home nursing - was working with PCP to try to get services vs hospice referral for additional help in the home. expresses a history of a bad experience at SNF so would like to avoid this ? palliative at discharge, consulted for today (4) History of CVA (cerebrovascular accident): Plan: Patient with persistent right sided deficit -Continue ASA (5) Seizure-like activity: Plan: Newly diagnosed. Negative workup during last admission. -Continue keppra 500mg po BID. --> will make IV BID for now while difficulty with PO Obtain Keppra level (6) Hypertension: Plan: Chronic. Well controlled (7) BARBARA (obstructive sleep apnea): Plan: Chronic -CPAP qHS as tolerated (8) Atrial fibrillation with RVR: Plan: HR poorly controlled - might have to accept low teens as he seems unbothered. When he is at rest he can have pauses and HR in 40-60. Pauses < 4 sec but will continue to monitor. He did have addition IV Lopressor so may be contributing? Metoprolol decreased to 25mg BID Avoiding placement of pacemaker given all of above (pause with IV lopressor) Continue diltiazem 180mg daily, Eliquis 5mg BID Check mag w/ AM labs, keep K ~4, Mag ~2 Monitor on tele Plan continued inpatient stay, Ancef for IV abx for UTI as outlined voicemail left for this morning palliative consulted as above, possible hospice at discharge pending discussion CM to follow Admission and Anticipated Discharge Date Admission Date: October 02, 2021 Supervising Physician Co-Signing Physician Notes STEPH Supervision Note: I did not personally see or examine the patient today, but I verified all jang points of STEPH Shabazz's assessment and plan with the following exceptions/additions: Consider improved coverage for gram neg UTI if worsens again given nitrites on UA (MSSA likely from skin gemma overgrowth) but suspect since going home with hospice, not going to improve quality of life to treat UTI anyway Subjective Patient evaluated this morning, no acute distress in bed. Per RN, pills difficult this morning and concerns about not getting his keppra. Ordered IV in meantime. Crews bag with concentrated darkened urine with sediment in tubing. Will order IVF for 1L with NSS @ 80cc/hr for now. Awaiting palliative care consultation to be undertaken later today. He opened his eyes when questioning about pain but denied any at present, stated he thought I was taking his blood. Called for questioning/update, voicemail left at this time. Messaged palliative as well to update of status/underlying factors. Review of Systems Review of Systems: Unobtainable due to cognitive status Physical Exam Physical Exam: General Appearance: Frail elderly male laying in bed, NAD, alert to person, not place/time/event HEENT: Head is normocephalic/atraumatic; Hearing grossly intact; Mucous membranes slightly dry, trachea midline without deviation Neck: Supple; Trachea midline; Neg JVD Heart: RRR with no M/G/R, no edema, pulses palpable Lungs: CTAB, poor inspiratory effort at times, no audible wheezing/crackles, on room air Abdomen: Soft, non-tender, non-distended; Positive BS x 4 quadrants Extremities: Neg cyanosis or edema Neurological: Speech clear but speaks minimally Psychiatric: No eye contact for the most part -- mostly keeps R eye closed and minimally opening L eye. Answers with simple answers at times Skin: cool, dry Results & Data Results & Data ([facility]) Vital Signs (Past 12 Hours) Vital Signs Temp Pulse Pulse Pulse Resp BP BP 10/03/21 07:00 36.0 C L 85 20 133/80 10/03/21 02:10 36.6 C 86 20 138/89 10/02/21 22:17 122 H 10/02/21 22:41 36.9 C 126 H 118 H 16 139/77 Pulse Ox O2 Del Method 10/03/21 07:00 96 Room Air 10/03/21 02:10 96 Room Air 10/02/21 22:17 10/02/21 22:41 95 Laboratory Results 10/03/21 10/03/21 10/03/21 Range/Units 08:44 08:44 08:44 WBC 4.87 (4.8-10.8) K/ul RBC 4.49 L (4.63-6.08) M/uL Hgb 13.5 L (14.0-18.0) g/dl Hct 42.6 (40.1-51.0) % MCV 94.9 (80.0-100.0) fL MCH 30.1 (25.0-34.0) pg MCHC 31.7 L (32.0-36.0) g/dL RDW Std Deviation 49.6 H (36.4-46.3) fL RDW Coeff of Alex 14.2 (11.5-14.5) % Plt Count 174 (130-400) K/uL MPV 10.4 (9.4-12.4) fL Immature Gran % (Auto) 0.2 % Neut % (Auto) 63.7 % Lymph % (Auto) 23.2 % [place] % (Auto) 7.4 % Eos % (Auto) 4.1 % Baso % (Auto) 1.4 % Neut # (Auto) 3.10 (1.4-6.5) K/uL Lymph # (Auto) 1.13 L (1.2-3.4) K/uL [place] # (Auto) 0.36 (0.24-0.82) K/uL Eos # (Auto) 0.20 (0-0.50) K/uL Baso # (Auto) 0.07 (0-0.2) K/uL Immature Gran # (Auto) 0.01 (0.00-0.02) K/uL Sodium Potassium Chloride Carbon Dioxide Anion Gap BUN Creatinine Est Cr Clr Drug Dosing Est GFR ( Amer) Est GFR (Non-Af Amer) BUN/Creatinine Ratio Glucose Calcium Magnesium Total Bilirubin Pending Direct Bilirubin Pending AST Pending ALT Pending Alkaline Phosphatase Pending Total Protein Pending Albumin Pending Vitamin B12 Pending 10/03/21 Range/Units 08:44 WBC (4.8-10.8) K/ul RBC (4.63-6.08) M/uL Hgb (14.0-18.0) g/dl Hct (40.1-51.0) % MCV (80.0-100.0) fL MCH (25.0-34.0) pg MCHC (32.0-36.0) g/dL RDW Std Deviation (36.4-46.3) fL RDW Coeff of Alex (11.5-14.5) % Plt Count (130-400) K/uL MPV (9.4-12.4) fL Immature Gran % (Auto) % Neut % (Auto) % Lymph % (Auto) % [place] % (Auto) % Eos % (Auto) % Baso % (Auto) % Neut # (Auto) (1.4-6.5) K/uL Lymph # (Auto) (1.2-3.4) K/uL [place] # (Auto) (0.24-0.82) K/uL Eos # (Auto) (0-0.50) K/uL Baso # (Auto) (0-0.2) K/uL Immature Gran # (Auto) (0.00-0.02) K/uL Sodium Pending Potassium Pending Chloride Pending Carbon Dioxide Pending Anion Gap Pending BUN Pending Creatinine Pending Est Cr Clr Drug Dosing Pending Est GFR ( Amer) Pending Est GFR (Non-Af Amer) Pending BUN/Creatinine Ratio Pending Glucose Pending Calcium Pending Magnesium Pending Total Bilirubin Direct Bilirubin AST ALT Alkaline Phosphatase Total Protein Albumin Vitamin B12 Diagnostic Findings Head CT 10/02/21 17:51 CT head/brain wo con CLINICAL HISTORY: Acute change in mental status; ventriculomegaly COMPARISON STUDY: 09/24/2021 CT DOSE: 729.78 mGycm TECHNIQUE: Standard CT of the Brain was performed without IV contrast. A dose lowering technique was utilized adhering to the principles of ALARA. FINDINGS: Extraaxial space: There is no evidence for subdural hematoma. There are no extra-axial fluid collections. Ventricles and cisterns: The ventricles are again moderately to markedly dilated bilaterally. There is no evidence for midline shift or mass effect. Parenchyma: There is no subarachnoid or intraparenchymal hemorrhage. There is no evidence for an acute infarct or cerebral edema. There is mild cerebral cortical atrophy and decreased attenuation in the periventricular white matter representing remote small vessel disease. There are no gross mass lesions. Osseous structures: There is no evidence for an acute fracture. The visualized p aranasal sinuses are clear. The mastoid air cells are clear bilaterally. Soft tissues: There is no evidence for focal soft tissue swelling. IMPRESSION: 1. No acute intracerebral pathology. 2. Cerebral cortical atrophy and extensive remote small vessel disease are again seen. ACT 112: Negative or not required by law. Electronically signed by: Benoit López M.D. 10/02/2021 6:36 PM PG Care Time/CCT Total # of Minutes Spent Total Time Spent with Patient: Total time spent is greater than 50% in coordination of care (as documented) at patient's floor/unit and/or counseling patient: Coding Level of Care Code 84980 Subseq Hosp Care Lvl 3 Diagnoses Weakness R53.1 Acute UTI N39.0 Dementia F03.90 Dementia behavioral disturbance: without behavioral disturbance Dementia type: unspecified type History of CVA (cerebrovascular accident) Z86.73 Seizure-like activity R56.9 Hypertension I10 Hypertension type: unspecified BARBARA (obstructive sleep apnea) G47.33 Atrial fibrillation with RVR I48.91 (1) Dementia Dementia behavioral disturbance: without behavioral disturbance Dementia type: unspecified type Qualified Code(s): F03.90 - Unspecified dementia without behavioral disturbance (2) Hypertension Hypertension type: unspecified Qualified Code(s): I10 - Essential (primary) hypertension
[2021-10-03] MEDS: METOPROLOL TARTRATE 25 MG TAB PO SCH ×2 (08:56→20:17)
[2021-10-03 09:03] LABS: Basophils # (auto) 0.07 K/uL (0-0.2); Basophils % (auto) 1.4 %; Eosinophils % (auto) 4.1 %; Hematocrit (blood only) 42.6 % (40.1-51.0); Hemoglobin 13.5 g/dl (14.0-18.0); Immature Granulocytes # (auto) 0.01 K/uL (0.00-0.02); Immature Granulocytes % (auto) 0.2 %; Lymphocytes # (auto) 1.13 K/uL (1.2-3.4); Lymphocytes % (auto) 23.2 %; Mean Corpuscular Hemoglobin 30.1 pg (25.0-34.0); Mean Corpuscular Hgb Conc 31.7 g/dL (32.0-36.0); Mean Corpuscular Volume 94.9 fL (80.0-100.0); Mean Platelet Volume 10.4 fL (9.4-12.4); Monocytes # (auto) 0.36 K/uL (0.24-0.82); Monocytes % (auto) 7.4 %; Neutrophils % (auto) 63.7 %; Platelet Count 174 K/uL (130-400); RDW Coefficient of Variation 14.2 % (11.5-14.5); RDW Standard Deviation 49.6 fL (36.4-46.3); Red Blood Count 4.49 M/uL (4.63-6.08); White Blood Count 4.87 K/ul (4.8-10.8)
[2021-10-03] MEDS ORDERED: SODIUM CHLORIDE 0.9% 500 ML IV SCH (09:15)
[2021-10-03 09:30] LABS: BUN Creatinine Ratio 19.5 (10-20); Creatinine Clr Calc Pharmacy 80.4 ml/min; Est GFR (African American) 100.3 ml/min; Est GFR (Non-African American) 86.5 ml/min; Potassium 4.1 mmol/L (3.5-5.1)
[2021-10-03 09:31] LABS: Albumin Level 3.5 gm/dl (3.4-5.0); Bilirubin Direct 0.1 mg/dl (0-0.2); Bilirubin,Total 0.5 mg/dl (0.2-1.0); Total Protein 6.9 gm/dl (6.0-8.3)
[2021-10-03] MEDS: levETIRAcetam 500 MG in 0.9 % SODIUM CHLORIDE 100 ML IV SCH ×2 (09:40→20:55)
[2021-10-03] MEDS: ceFAZolin 1000MG 1,000 MG/7.5 ML SYR IV SCH ×2 (13:00→19:41)
--- NOTE | 2021-10-03 13:10 | Palliative Care Consultation ---
Date of Consultation October 03, 2021 Assessment & Plan (1) Dysphagia: Tolerating pureed diet at present though he is lethargic at times. His tells me that they have living parsons and that he would not want a feeding tube. (2) Altered mental status: with baseline dementia, UTI and recent addition of keppra. Altered mental status type: disorientation Qualified Code(s): R41.0 - Disorientation, unspecified (3) Palliative care encounter: I talked with Mrs. Krishnan at bedside. She notes that Ricardo has had a significant decline in the last three weeks. She tells me that he has said that he is dying on more than one occasion recently. She feels that he is getting tired and that this is not the kind of life that he would want to live. She has cared for him at home for the last three years. She would like to continue caring for him at home until his dying time but is anxious about how to manage his care with new seizure like activity and dysphagia. She would like the focus of his care to be symptom management. She asked if some of his medications were necessary at this time due to concern about pill burden. We talked about hospice support at home to help her monitor his medications with his swallowing ability and guide her with his care moving forward. She feels that this would be a good thing and would like to take him home on hospice when he is stable for discharge. (4) Dementia: Dementia behavioral disturbance: without behavioral disturbance Dementia type: unspecified type Qualified Code(s): F03.90 - Unspecified dementia without behavioral disturbance (5) Acute UTI: (6) Seizure-like activity: History of Present Illness Reason for Consultation: goals of care Requesting Physician: TALI Gupta Attending Physician: Millicent Lopez MD History of Present Illness 76 yo gentleman with dementia, BARBARA, afib with RVR, previous CVA and dementia. Per his he is a full lift to transfer to chair, speaks only a few words at at time and requires cuing and assistance with feeding prior to admission. He was admitted with lethargy, poor appetite and increased confusion. He did have a urine culture positive for MSSA. He has had Pseudomonas uti in the past. He was also recently hospitalized for seizure and started on keppra. He unfortunately also has moderate oral dysphagia on speecch assessment during this admission as well. He is lethargic but arouses and answers yes or no questions. He denies pain or discomfort. He does arouse to the point of being able to eat some pureed food and sips of water which he seems to tolerate during the time that I was in the room. He does require full feeding assistance. Allergies Allergy/AdvReac Type Severity Reaction Status Date / Time isopropyl alcohol Allergy Severe RUBBING Verified 09/30/21 22:03 ALCOHOL - SHORTNESS OF BREATH adhesive Allergy Intermediate BLISTERS Verified 09/30/21 22:03 escitalopram Allergy Unknown UNSURE-DOES Verified 09/30/21 22:03 NOT KNOW oxycodone AdvReac Mild CONFUSION Verified 09/30/21 22:03 lisinopril AdvReac Unknown elevated Verified 09/30/21 22:03 creatinine Home Medications Medication Instructions Recorded Confirmed Type cholecalciferol (vitamin D3) 25 1,000 unit PO HS 02/13/18 09/30/21 History mcg (1,000 unit) capsule (Vitamin D3) coenzyme Q10 100 mg capsule 100 mg PO BID 02/13/18 09/30/21 History (CoQ-10) polyethylene glycol 3350 17 17 g PO QAM 06/04/20 09/30/21 History gram/dose oral powder (Miralax) acetaminophen 500 mg tablet 1,000 mg PO BID Pain #120 tabs 06/14/20 09/30/21 Rx (Tylenol Extra Strength) memantine 10 mg tablet (Namenda) 10 mg PO BID #180 tabs 06/14/20 09/30/21 Rx aspirin 81 mg tablet,delayed 81 mg PO QAM #90 tabs 09/08/20 09/30/21 Rx release (Pieter Low Dose Aspirin) tamsulosin 0.4 mg capsule (Flomax) 0.4 mg PO HS #90 caps 11/22/20 09/30/21 Rx bisacodyl 10 mg rectal suppository 10 mg IA DAILY PRN Constipation 12/28/20 09/30/21 History (Dulcolax (bisacodyl)) docusate sodium 100 mg capsule 100 mg PO BID 12/28/20 09/30/21 History (Colace) rivastigmine tartrate 3 mg capsule 3 mg PO QAM 12/31/20 09/30/21 History diclofenac sodium 1 % topical gel 4 g EXT QID PRN pain #100 grams 04/15/21 09/30/21 Rx (Voltaren Arthritis Pain) nitroglycerin 0.4 mg sublingual 0.4 mg sublingual Q5M PRN chest 04/19/21 09/30/21 Rx tablet pain #25 tabs diltiazem HCl 180 mg 180 mg PO QAM #90 caps 05/04/21 09/30/21 Rx capsule,extended release 24 hr cyanocobalamin (vitamin B-12) 1,000 mcg PO DAILY #30 caps 06/30/21 09/30/21 Rx 1,000 mcg capsule clotrimazole 1 % topical cream 1 applic topical BID PRN Skin 07/28/21 09/30/21 History Irritation d-mannose 500 mg capsule 1,000 mg PO QAM 07/28/21 09/30/21 History nystatin 100,000 unit/gram topical 1 applic topical QID #60 grams 07/28/21 09/30/21 Rx powder apixaban 5 mg tablet (Eliquis) 5 mg PO BID #180 tabs 09/13/21 09/30/21 Rx levetiracetam 500 mg tablet 500 mg PO BID #60 tabs 09/28/21 09/30/21 Rx (Keppra) metoprolol tartrate 50 mg tablet 50 mg PO BID #60 tabs 09/28/21 09/30/21 Rx Mattress (Air or other) #1 ea 09/29/21 09/30/21 Rx Patient History Medical History Acute hypotension Acute kidney injury Acute urinary retention Atrial fibrillation with RVR CAD (coronary artery disease) CAD (coronary artery disease) CHF (congestive heart failure) Closed fracture of radial head Constipation CVA (cerebral vascular accident) Gastroesophageal reflux disease Hyperlipidemia Hypertension Ileus Nephrolithiasis BARBARA (obstructive sleep apnea) Small bowel obstruction Symptomatic bradycardia Urinary retention Surgical History History of knee replacement History of PTCA Family History Father Stroke Mother Myocardial infarction Aunt Diabetes Family/Other Heart disease Hypertension Nephrolithiasis Other Dementia Denies family history of Prostate cancer Social History Smoking Status: Never smoker Second Hand Exposure: No; Do You Dip or Chew Tobacco: No; Tobacco Cessation Education Requested by Patient: No Hx Alcohol Use: No Hx Substance Use: No Preferred Language: Romanian Communication Ability: Impaired Visual Impairment: Limited Hearing Ability: Normal 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 Beliefs That Will Affect Care: None marital status: Current Living Situation: Spouse current occupational status: retired How many Children do You have: 1 Other Information That Helps Us Care for You: No Feels Safe at Home: Yes Safety Concerns: Feels Safe At This Time Childhood Exposure to Second-Hand Smoke: Yes caffeine: No Physical Activity Frequency: Does not Exercise Seatbelt Use: always Sunscreen Use: No (not in the sun) Assistive Devices: Hospital Bed, Lift Chair, Mechanical Lift and Wheelchair Review of Systems Review of Systems: ESAS Pain 0/3 Dyspnea 0/3 Anxiety 0/3 Nausea 0/3 Drowsiness 1/3 PPS 30% Physical Exam Constitutional: + lethargic; no acute distress ENMT: Mouth: oral mucous membranes not dry Respiratory: normal respiratory effort; no labored breathing Cardiovascular: Extremities: no edema Musculoskeletal: Extremities: + muscle atrophy Neurologic: Speech / Cognition: + abnormal cognition Genitourinary: incontinent dark colored urine Results & Data ([facility]) Vital Signs (Past 12 Hours) Vital Signs Temp Pulse Resp BP Pulse Ox O2 Del Method 10/03/21 07:00 96.8 F L 85 20 133/80 96 Room Air 10/03/21 02:10 97.9 F 86 20 138/89 96 Room Air PG Care Time/CCT Total # of Minutes Spent Total Time Spent: 65 Total Time Spent with Patient: Total time spent is greater than 50% in coordination of care (as documented) at patient's floor/unit and/or counseling patient:goals of care, prognosis, hospice Coding Level of Care Code 89504 Initial Inpt Care Lvl 2 Diagnoses Dysphagia R13.10 Altered mental status R41.0 Altered mental status type: disorientation Palliative care encounter Z51.5 Dementia F03.90 Dementia behavioral disturbance: without behavioral disturbance Dementia type: unspecified type Acute UTI N39.0 Seizure-like activity R56.9
[2021-10-03] MEDS: TAMSULOSIN HCL 0.4 MG CAP PO SCH (20:58)
[2021-10-04] MEDS ORDERED: SODIUM CHLORIDE 0.9% 1000ML 500 ML IV ONE (01:22)
[2021-10-04] MEDS: ceFAZolin 1000MG 1,000 MG/7.5 ML SYR IV SCH ×2 (04:20→12:10)
[2021-10-04] MEDS ORDERED: SODIUM CHLORIDE 0.9% 1000ML 250 ML IV ONE ×2 (07:44→09:13)
[2021-10-04] MEDS: RIVASTIGMINE TARTRATE 1.5 MG CAP PO SCH (08:25)
[2021-10-04] MEDS: dilTIAZem HCL 180 MG CAPCR PO SCH (08:25)
[2021-10-04] MEDS: ASPIRIN 81 MG ECTAB PO SCH (08:26)
[2021-10-04] MEDS: APIXABAN 5 MG TABLET PO SCH ×2 (08:26→23:07)
[2021-10-04] MEDS: METOPROLOL TARTRATE 25 MG TAB PO SCH ×2 (08:26→23:07)
[2021-10-04] MEDS: MEMANTINE HCL 10 MG TAB PO SCH ×2 (08:26→23:07)
[2021-10-04] MEDS: NYSTATIN POWDER 15GM BTL EXT SCH ×4 (08:27→23:06)
[2021-10-04] MEDS: POLYETHYLENE (MIRALAX) 17 GM PACK PO SCH (08:27)
[2021-10-04] MEDS: levETIRAcetam 500 MG in 0.9 % SODIUM CHLORIDE 100 ML IV SCH ×2 (08:27→23:06)
[2021-10-04] MEDS: ACETAMINOPHEN 500 MG TAB PO SCH ×2 (08:45→23:26)
[2021-10-04] MEDS: DOCUSATE SODIUM 100 MG CAP PO SCH ×2 (08:45→23:26)
[2021-10-04 11:39] LABS: Basophils # (auto) 0.06 K/uL (0-0.2); Basophils % (auto) 0.9 %; Eosinophils % (auto) 2.9 %; Hematocrit (blood only) 41.2 % (40.1-51.0); Hemoglobin 13.6 g/dl (14.0-18.0); Immature Granulocytes # (auto) 0.01 K/uL (0.00-0.02); Immature Granulocytes % (auto) 0.1 %; Lymphocytes # (auto) 1.57 K/uL (1.2-3.4); Lymphocytes % (auto) 22.8 %; Mean Corpuscular Hemoglobin 30.4 pg (25.0-34.0); Mean Platelet Volume 10.7 fL (9.4-12.4); Monocytes # (auto) 0.48 K/uL (0.24-0.82); Neutrophils # (auto) 4.57 K/uL (1.4-6.5); Neutrophils % (auto) 66.3 %; Platelet Count 202 K/uL (130-400); RDW Coefficient of Variation 14.6 % (11.5-14.5); RDW Standard Deviation 49.1 fL (36.4-46.3); Red Blood Count 4.48 M/uL (4.63-6.08); White Blood Count 6.89 K/ul (4.8-10.8)
[2021-10-04 12:07] LABS: Albumin Level 3.6 gm/dl (3.4-5.0); BUN Creatinine Ratio 16.7 (10-20); Bilirubin,Total 0.6 mg/dl (0.2-1.0); Calcium 8.9 mg/dl (8.5-10.1); Creatinine Clr Calc Pharmacy 91.5 ml/min; Est GFR (African American) 105.8 ml/min; Est GFR (Non-African American) 91.3 ml/min; Globulin 3.5 gm/dl (2.5-4.0); Potassium 4.2 mmol/L (3.5-5.1); Total Protein 7.1 gm/dl (6.0-8.3)
--- NOTE | 2021-10-04 12:17 | Hospitalist Progress Note ---
Date of Service October 04, 2021 Assessment & Plan (1) Weakness: Plan: 76yo male presents with ongoing weakness, intermittent confusion. Was recently admitted to [facility] for seizure-like activity. Known dementia. ?progression of disease vs delirium state - contributing factors include recent hospitalization, possible UTI, medication changes He generally remains lethargic. Will answer questions with simple answers but not very interactive. noted he was like that over the past few weeks and noted he won't open his eyes much anymore when talking when it used to just be the R eye he wouldn't open. Of note, admit earlier this month, did have exposure to COVID per notes -> COVID on admit negative, consider repeat testing if needed. --> No SOB/hypoxia at current UCx with MSSA which is possibly just contamination. --> Urine is DARKENED/sediment--> Dry on exam, 1L NSS ordered 10/03 (got some NSS yesterday) --> Additional 1L overnight and 500cc total for elevated HR Cefepime --> Rocephin --> ancef to ensure getting as poor PO intake for 5 day course with Keflex (given UA w/ nitrites more indicative of GN infection) NGTD on BCx suspicion low for endocarditis. Keppra level pending (new med, ?could be from this) --> discussed with Neurology and can f/u outpatient with level adjustment as needed with Dr Diaz but would be surpirsed if elevated given weight and should not hold up discharge MRI last admit with hydrocephalus, diffuse atrophy, microvascular ischemic changes. Poor imaging due to motion artifact. Of note, prior lung nodule Mar 2021, MRI was done WITHOUT contrast COMPUTATIONAL LINGUIST: gladys willingness to participate. . He was able to accept pudding, ice cream, and water today. Did not pocket food or spit it out but suspect he could likely do this time to time. Recommending to continue pureed, meds crushed in carrier, and alternate solids/liquids. If he pockets then stop the feeding session. Also recommending to focus on pleasure foods. Discussion with evening 10/02 and palliative consulted : [facility] Hospice can be arranged for . Updated Reema with plans to continue the keppra, continue med + ativan prn at discharge and will attempt to limit medications at discharge given swallowing issues. CM arranging. Repeat COVID testing if warranted but per patient appears back to baseline for most part. Continued inpatient stay (2) Acute UTI: Plan: Afebrile, HD stable, nontoxic in appearance. History of Pseudomonas UTI in the past, resistant to fluoroquinolones -Current cx with MSSA as discussed above. - Tx as above (3) Dementia: Plan: Patient with dementia. ?progression of disease leading to present symptoms. Prior B12 level low and on replacement-- repeat w/o deficiency TSH wnl Frequent orientation -Monitor for oral pocketing -Aspiration precautions -Continue Namenda and Rivastigmine -- considering discontinuing these medications PT/OT/COMPUTATIONAL LINGUIST evaluation -Patient may benefit from home nursing - was working with PCP to try to get services vs hospice referral for additional help in the home. expresses a history of a bad experience at SNF so would like to avoid this --> Arranging for palliative at discharge on (4) History of CVA (cerebrovascular accident): Plan: Patient with persistent right sided deficit -Continue ASA (5) Seizure-like activity: Plan: Newly diagnosed. Negative workup during last admission. -Continue keppra 500mg po BID. --> will make IV BID for now while difficulty with PO while inpatient but patient improved ability to take pills with applesauce as UTI treated and can transition back to PO at discharge Obtain Keppra level -- pending and per lab wont be back until next week can f/u labs w/ neurology/adjustments but per discussion with Dr Del Valle no need to keep inpatient/further keppra levels (6) Hypertension: Plan: Chronic. Well controlled (7) BARBARA (obstructive sleep apnea): Plan: Chronic -CPAP qHS as tolerated (8) Atrial fibrillation with RVR: Plan: HR poorly controlled - might have to accept low teens as he seems unbothered. When he is at rest he can have pauses and HR in 40-60. Pauses < 4 sec but will continue to monitor. He did have addition IV Lopressor so may be contributing? Metoprolol decreased to 25mg BID Avoiding placement of pacemaker given all of above (pause with IV lopressor) Continue diltiazem 180mg daily, Eliquis 5mg BID Check mag w/ AM labs, keep K ~4, Mag ~2 will order 1gm IV magnesium given HR elevated to 150-160s at highest, improved with IVF and then with pauses (pauses not new, had additional dose IV lopresser earlier in stay w/ pauses). KNown by cards Monitor on telemetry for now, hesitant to decrease metoprolol further given elevations in HR and will continue that dose for now (9) Constipation: Plan: issues at home on occassion prns ordered, but as discussed with , would like suppository for today ordered x 1 now Kub to check constipation, also eval if any stones (no CVA tenderness but hx dementia baseline but reports hx stones in the past) also with elevated ALP however appears has had chronic elevations of such Plan continued inpatient stay complete tx for UTI w/ Keflex (after tomorrows dosing) CM arranging for discharge on as would like to monitor after competition of abx and worried about what hospice can/can't do Admission and Anticipated Discharge Date Admission Date: October 02, 2021 Supervising Physician Co-Signing Physician Notes Attending Attestation - Chart reviewed in detail, care plan d/w STEPH So. I agree w/ the jang components of her documentation. Dispo planning; ? home with hospice. Jez Tucker MD Subjective Patient evaluated around lunch. Taking bites of food for this morning. Got IVF overnight for elevated HR, improved, but ellis without urine draining ( here since 11am no output, confirmed with RN and not recently emptied). aware of elevated HR/pauses and not giving IV metoprolol. states patient with history of kidney stones but endorses no issues. Asked RN to bladder scan/check to see if positioning correct Bladder scan for 204cc. Condom cath placed around 11am per RN, only 90 minutes ago as patient grossly incontinent in bed and will monitor for now. Given IVF overnight and slight pedal edema noted and will hold off additional IVF currently. Ricardo opening eyes, answering simple questions at times. Would like chocolate pudding. does believe abx are working as patient moving head around a little. She does endorse it is a lot to bring Ricardo back and forth to hospital and discussed palliative care at discharge. Can continue abx to complete current course. Will call lab to see about turnaround time for Keppra level, as patient wants to make sure not elevated/over treatment as cause for current AMS. Level takes 5-6 days to result, goes to [place], likely no results until this upcoming Sunday. Review of Systems Review of Systems: All systems reviewed & are unremarkable except as noted in HPI & below Physical Exam Physical Exam: General Appearance: Frail elderly male laying in bed, NAD, alert to person, not place/time/event, at bedside HEENT: head normocephalic, atraumatic, hearing intact, mmm moist, trachea midline without deviation Heart: RRR with no M/G/R, trace pedal edema, pulses palpable, cap refill wnl Lungs: CTAB, poor inspiratory effort at times, no audible wheezing/crackles, on room air 97% Abdomen: Soft, non-tender, non-distended; Positive BS x 4 quadrants Extremities: Neg cyanosis or edema Neurological: Speech clear but speaks minimally : condom cath without any drainage (5 minutes later, 50cc concentrated yellow urine) Psychiatric: alert to person/name, not time/events, improved eye contact and answering simple questions Skin: cool, dry Results & Data Results & Data ([facility]) Vital Signs (Past 12 Hours) Vital Signs Temp Pulse Pulse Pulse Resp BP BP 10/04/21 11:23 36.7 C 79 19 137/83 10/04/21 07:41 103 H 112/85 10/04/21 06:39 36.8 C 53 L 18 116/73 10/04/21 05:10 118 H 10/04/21 04:24 36.4 C L 95 H 18 138/89 10/04/21 02:00 163 H 156/96 H 10/04/21 01:46 161 H 117/94 10/04/21 01:14 36.7 C 144 H 18 147/90 H Pulse Ox O2 Del Method 10/04/21 11:23 97 Room Air 10/04/21 07:41 95 Room Air 10/04/21 06:39 97 Room Air 10/04/21 05:10 10/04/21 04:24 96 Room Air 10/04/21 02:00 10/04/21 01:46 10/04/21 01:14 Laboratory Results 10/04/21 10/04/21 10/04/21 Range/Units 11:16 11:16 11:16 WBC 6.89 (4.8-10.8) K/ul RBC 4.48 L (4.63-6.08) M/uL Hgb 13.6 L (14.0-18.0) g/dl Hct 41.2 (40.1-51.0) % MCV 92.0 (80.0-100.0) fL MCH 30.4 (25.0-34.0) pg MCHC 33.0 (32.0-36.0) g/dL RDW Std Deviation 49.1 H (36.4-46.3) fL RDW Coeff of Alex 14.6 H (11.5-14.5) % Plt Count 202 (130-400) K/uL MPV 10.7 (9.4-12.4) fL Immature Gran % (Auto) 0.1 % Neut % (Auto) 66.3 % Lymph % (Auto) 22.8 % [place] % (Auto) 7.0 % Eos % (Auto) 2.9 % Baso % (Auto) 0.9 % Neut # (Auto) 4.57 (1.4-6.5) K/uL Lymph # (Auto) 1.57 (1.2-3.4) K/uL Free[place] # (Auto) 0.48 (0.24-0.82) K/uL Eos # (Auto) 0.20 (0-0.50) K/uL Baso # (Auto) 0.06 (0-0.2) K/uL Immature Gran # (Auto) 0.01 (0.00-0.02) K/uL Sodium 139 (136-145) mmol/L Potassium 4.2 (3.5-5.1) mmol/L Chloride 108 H (98-107) mmol/L Carbon Dioxide 21 (21-32) mmol/L Anion Gap 10 (3-11) BUN 12 (6-23) mg/dl Creatinine 0.72 (0.6-1.4) mg/dl Est Cr Clr Drug Dosing 91.5 ml/min Est GFR ( Amer) 105.8 ml/min Est GFR (Non-Af Amer) 91.3 ml/min BUN/Creatinine Ratio 16.7 (10-20) Glucose 89 (70-99(Fasting)) mg/dl Calcium 8.9 (8.5-10.1) mg/dl Magnesium 1.8 (1.7-2.4) mg/dl Total Bilirubin 0.6 (0.2-1.0) mg/dl AST 13 (13-39) U/L ALT 9 (7-52) U/L Alkaline Phosphatase 126 H (34-104) U/L Total Protein 7.1 (6.0-8.3) gm/dl Albumin 3.6 (3.4-5.0) gm/dl Globulin 3.5 (2.5-4.0) gm/dl Albumin/Globulin Ratio 1.0 (0.9-2) PG Care Time/CCT Total # of Minutes Spent Total Time Spent with Patient: Total time spent is greater than 50% in coordination of care (as documented) at patient's floor/unit and/or counseling patient: Coding Level of Care Code 15758 Subseq Hosp Care Lvl 3 Diagnoses Weakness R53.1 Acute UTI N39.0 Dementia F03.90 Dementia behavioral disturbance: without behavioral disturbance Dementia type: unspecified type History of CVA (cerebrovascular accident) Z86.73 Seizure-like activity R56.9 Hypertension I10 Hypertension type: unspecified BARBARA (obstructive sleep apnea) G47.33 Atrial fibrillation with RVR I48.91 Constipation K59.00 (1) Dementia Dementia behavioral disturbance: without behavioral disturbance Dementia type: unspecified type Qualified Code(s): F03.90 - Unspecified dementia without behavioral disturbance (2) Hypertension Hypertension type: unspecified Qualified Code(s): I10 - Essential (primary) hypertension
[2021-10-04] MEDS ORDERED: bisacodyL 10 MG SUPP PR STA (13:07)
[2021-10-04] MEDS ORDERED: MAGNESIUM SULFATE / D5W 1 GM/100 ML BAG IV ONE (14:32)
--- NOTE | 2021-10-04 14:40 | XRay Report ---
KUB CLINICAL HISTORY: Constipation. FINDINGS: 2 AP supine abdominal radiographs are compared to study dated 04/14/2021 and correlated with abdominal CT dated 07/01/2020. There is a nonobstructed abdominal bowel gas pattern comment with mild gaseous distention of the small bowel loops and colon. Fecal retention is noted in the rectosigmoid. No evidence of intraperitoneal free air is seen on these supine images. No abnormal abdominal calcif ications identified. The skeletal structures are osteopenic appear intact. There is mild lumbosacral spondylosis. IMPRESSION: Rectosigmoid fecal retention with no radiographic evidence of high-grade bowel obstructio n. Electronically signed by: Emile Neal M.D. 10/04/2021 2:39 PM
--- NOTE | 2021-10-04 17:40 | CT Scan Report ---
ABDOMEN AND PELVIS CT WITHOUT CONTRAST CT DOSE: 1076.57 mGy.cm HISTORY: Acute urinary tract infection in a patient with history of kidney stones, hx stones, uti TECHNIQUE: Multiaxial CT images of the abdomen and pelvis were performed without contrast. A dose lo wering technique was utilized adhering to the principles of ALARA. COMPARISON STUDY: CT abdomen and pelvis 07/01/2020. FINDINGS: Cardiomegaly with coronary artery calcifications. Small right pleural effusion. The study i s limited secondary to respiratory motion artifact and upper extremity positioning. No pneumatosis or pneumoperitoneum. The unenhanced spleen, moderately atrophic pancreas and adrenal glands are unremar kable. The gallbladder and liver are also within normal limits. Cortical scarring with parenchymal thinning of the left kidney. 1.7 cm exophytic cyst within the supe rior pole left kidney. There are least 4 nonobstructing calculi noted within the left kidney measurin g up to 1.2 cm. Greater than 5 nonobstructing calculi of the right kidney measure up to 1.4 cm. 3 mm calculus of the proximal left ureter, image 176 without associated obstructive uropathy. There are se veral tiny calculi noted within the dependent urinary bladder. Partial distention of the bladder with mild wall thickening. Prostamegaly. Small fat-filled left inguinal hernia. Atherosclerosis of the ao rta without aneurysm. No lymphadenopathy. Small duodenal diverticulum. No bowel obstruction. Moderate fecal retention of the rectosigmoid. Mild wall thickening of the inferior rectum with trace perirectal stranding. No ascites or mesenteric inf lammation. Appendectomy. Gynecomastia. Degenerative changes of the spine, pelvis and hips. IMPRESSION: 1. 3 mm calculus of the proximal left ureter without obstructive uropathy. 2. Bilateral nonobstructing renal calculi with several small stones within the dependent urinary blad margot. 3. Cortical scarring with parenchymal thinning of the left kidney. 4. No bowel obstruction. 5. Moderate fecal retention of the rectosigmoid with mild rectal wall thickening and trace perirectal stranding suggestive of a mild stercoral proctitis, improved from the 07/01/2020 exam. 6. Small right pleural effusion. ACT 112: Negative or not required by law. The above report was generated using voice recognition software. It may contain grammatical, syntax o r spelling errors. Dictated: 10/04/2021 4:50 PM Transcribed: 10/04/2021 5:13 PM Jen [id number] [email or web address] Electronically signed by: Malick Vital M.D. 10/04/2021 5:39 PM
[2021-10-04] MEDS: TAMSULOSIN HCL 0.4 MG CAP PO SCH (23:07)
[2021-10-04] MEDS: cephALEXin 500 MG CAP PO SCH (23:08)
--- NOTE | 2021-10-05 07:15 | Hospitalist Progress Note ---
Date of Service October 05, 2021 Assessment & Plan (1) Weakness: Plan: 76yo male presents with ongoing weakness, intermittent confusion. Was recently admitted to [facility] for seizure-like activity. Known dementia. ?progression of disease vs delirium state - contributing factors include recent hospitalization, possible UTI, medication changes He generally remains lethargic. Will answer questions with simple answers but not very interactive. noted he was like that over the past few weeks and noted he won't open his eyes much anymore when talking when it used to just be the R eye he wouldn't open. -> COVID on admit negative, consider repeat testing if needed. --> No SOB/hypoxia at current and 98% on RA UCx with MSSA --> Urine is DARKENED/sediment--> Dry on exam, 1L NSS ordered 10/03 (got additional 1L overnight and 500cc total for elevated HR) Cefepime transitioned to Keflex and will complete 5 day course after today NGTD on BCx suspicion low for endocarditis. Keppra level pending (new med, ?could be from this) --> discussed with Neurology and can f/u outpatient with level adjustment as needed with Dr Diaz but would be surpirsed if elevated given weight and should not hold up discharge MRI last admit with hydrocephalus, diffuse atrophy, microvascular ischemic changes. Poor imaging due to motion artifact. Of note, prior lung nodule Mar 2021, MRI was done WITHOUT contrast CTAP done overnight 10/04 for stating hx kidney stones. No obstructing stone but does have several scattered throughout. Measuring up to 1.4cm, could consider nidus for recurrent infections, however patient / not wanting to peruse invasive testing/treatment currently and will progress as below HELICOPTER ENGINEER: gladys willingness to participate. . He was able to accept pudding, ice cream, and water today. Did not pocket food or spit it out but suspect he could likely do this time to time. Recommending to continue pureed, meds crushed in carrier, and alternate solids/liquids. If he pockets then stop the feeding session. Also recommending to focus on pleasure foods. Discussion with evening 10/02 and palliative consulted : [facility] Hospice can be arranged for . Updated Reema with plans to continue the keppra, continue med + ativan prn at discharge and will attempt to limit medications at discharge given swallowing issues. CM arranging. Of note, admit earlier this month, did have exposure to COVID per notes. Repeat COVID testing if warranted but per patient appears back to baseline for most part. Continued inpatient stay but planning for home with hospice tomorrow will convene with about medications to continue/discontinue at discharge adding ativan for concerns of seizure activity at home if unable to take the keppra in the future. (2) Acute UTI: Plan: Afebrile, HD stable, nontoxic in appearance. History of Pseudomonas UTI in the past, resistant to fluoroquinolones -Current cx with MSSA as discussed above. - Tx as above, complete course w/ keflex 10/05 (3) Dementia: Plan: Patient with dementia. ?progression of disease leading to present symptoms. Prior B12 level low and on replacement-- repeat w/o deficiency TSH wnl Frequent orientation -Monitor for oral pocketing -Aspiration precautions -Continue Namenda and Rivastigmine -- considering discontinuing these medications PT/OT/HELICOPTER ENGINEER evaluation -Patient may benefit from home nursing - was working with PCP to try to get services vs hospice referral for additional help in the home. expresses a history of a bad experience at SNF so would like to avoid this --> Arranging for palliative at discharge on (4) History of CVA (cerebrovascular accident): Plan: Patient with persistent right sided deficit -Continue ASA (5) Seizure-like activity: Plan: Newly diagnosed. Negative workup during last admission. -Continue keppra 500mg po BID. --> will make IV BID for now while difficulty with PO while inpatient but patient improved ability to take pills with applesauce as UTI treated and can transition back to PO at discharge Obtain Keppra level -- pending and per lab wont be back until next week can f/u labs w/ neurology/adjustments but per discussion with Dr Del Valle no need to keep inpatient/further keppra levels (6) Hypertension: Plan: Chronic. Well controlled (7) BARBARA (obstructive sleep apnea): Plan: Chronic -CPAP qHS as tolerated (8) Atrial fibrillation with RVR: Plan: HR poorly controlled - might have to accept low teens as he seems unbothered. When he is at rest he can have pauses and HR in 40-60. Pauses < 4 sec but will continue to monitor. He did have addition IV Lopressor so may be contributing? Metoprolol decreased to 25mg BID -- new rx at d/c. No further pauses overnight 10/04-10-05 Avoiding placement of pacemaker given all of above (pause with IV lopressor) Continue diltiazem 180mg daily, Eliquis 5mg BID Check mag w/ AM labs, keep K ~4, Mag ~2 will order 1gm IV magnesium given HR elevated to 150-160s at highest, improved with IVF and then with pauses (pauses not new, had additional dose IV lopresser earlier in stay w/ pauses). KNown by cards Monitor on telemetry for now, hesitant to decrease metoprolol further given elevations in HR and will continue that dose for now (9) Constipation: Plan: issues at home on occassion prns ordered, but as discussed with , would like suppository for today ordered x 1 now Kub to check constipation, also eval if any stones (no CVA tenderness but hx dementia baseline but reports hx stones in the past) also with elevated ALP however appears has had chronic elevations of such Plan continued inpatient stay complete tx for UTI w/ Keflex (after tomorrows dosing) CM arranging for discharge on as would like to monitor after competition of abx and worried about what hospice can/can't do Admission and Anticipated Discharge Date Admission Date: October 02, 2021 Supervising Physician Co-Signing Physician Notes Attending Attestation - Chart reviewed in detail, care plan d/w STEPH So. I agree w/ the jang components of her documentation. Dispo planning; home with hospice tomorrow. Jez Tucker MD Subjective Evaluated this morning. Doing well. Urine darkened yellow in ellis bag. Discussed with Ricardo about his wishes for end of life and his goals are comfort. Confirmed with on phone. Imaging last night with stones but no obstructing stones. Ricardo would not like to peruse any intervention and will continue the flomax to help keep urine flow without issue. Two large BM last night. Took pills with applesauce for the most part, will attempt to limit pills with at d/c. Review of Systems Review of Systems: All systems reviewed & are unremarkable except as noted in HPI & below Physical Exam Physical Exam: General Appearance: Frail elderly male laying in bed, NAD, alert to person, not place/time/event, at bedside HEENT: head normocephalic, atraumatic, hearing intact, mmm moist, trachea midline without deviation Heart: RRR with no M/G/R, trace pedal edema, pulses palpable, cap refill wnl Lungs: CTAB, poor inspiratory effort at times, no audible wheezing/crackles, on room air 97% Abdomen: Soft, non-tender, non-distended; Positive BS x 4 quadrants Extremities: Neg cyanosis or edema Neurological: Speech clear but speaks minimally : condom cath with concentrated yellow urine in bag Psychiatric: alert to person/name, not time/events, improved eye contact and more conversive today, answering simple questions Skin: cool, dry Results & Data Results & Data ([facility]) Vital Signs (Past 12 Hours) Vital Signs Temp Pulse Pulse Resp BP Pulse Ox O2 Del Method 10/04/21 22:16 101 H 10/05/21 02:49 35.8 C L 75 18 157/82 H 94 Room Air 10/04/21 23:03 36.7 C 80 18 135/86 95 Room Air 10/04/21 19:32 37.1 C 66 20 120/71 97 Room Air Laboratory Results 10/05/21 10/05/21 10/04/21 Range/Units 08:07 08:07 11:16 WBC 5.60 (4.8-10.8) K/ul RBC 4.53 L (4.63-6.08) M/uL Hgb 13.6 L (14.0-18.0) g/dl Hct 41.7 (40.1-51.0) % MCV 92.1 (80.0-100.0) fL MCH 30.0 (25.0-34.0) pg MCHC 32.6 (32.0-36.0) g/dL RDW Std Deviation 48.8 H (36.4-46.3) fL RDW Coeff of Alex 14.5 (11.5-14.5) % Plt Count 184 (130-400) K/uL MPV 10.5 (9.4-12.4) fL Sodium 139 (136-145) mmol/L Potassium 3.6 (3.5-5.1) mmol/L Chloride 107 (98-107) mmol/L Carbon Dioxide 25 (21-32) mmol/L Anion Gap 7 (3-11) BUN 12 (6-23) mg/dl Creatinine 0.67 (0.6-1.4) mg/dl Est Cr Clr Drug Dosing 98.4 ml/min Est GFR ( Amer) 108.9 ml/min Est GFR (Non-Af Amer) 94.0 ml/min BUN/Creatinine Ratio 17.9 (10-20) Glucose 81 (70-99(Fasting)) mg/dl Calcium 9.0 (8.5-10.1) mg/dl Magnesium 2.0 1.8 (1.7-2.4) mg/dl Total Bilirubin 0.6 (0.2-1.0) mg/dl AST 13 (13-39) U/L ALT 8 (7-52) U/L Alkaline Phosphatase 121 H (34-104) U/L Total Protein 7.0 (6.0-8.3) gm/dl Albumin 3.5 (3.4-5.0) gm/dl Globulin 3.5 (2.5-4.0) gm/dl Albumin/Globulin Ratio 1.0 (0.9-2) 08/16/ Range/Units 11:16 WBC (4.8-10.8) K/ul RBC (4.63-6.08) M/uL Hgb (14.0-18.0) g/dl Hct (40.1-51.0) % MCV (80.0-100.0) fL MCH (25.0-34.0) pg MCHC (32.0-36.0) g/dL RDW Std Deviation (36.4-46.3) fL RDW Coeff of Alex (11.5-14.5) % Plt Count (130-400) K/uL MPV (9.4-12.4) fL Sodium 139 (136-145) mmol/L Potassium 4.2 (3.5-5.1) mmol/L Chloride 108 H (98-107) mmol/L Carbon Dioxide 21 (21-32) mmol/L Anion Gap 10 (3-11) BUN 12 (6-23) mg/dl Creatinine 0.72 (0.6-1.4) mg/dl Est Cr Clr Drug Dosing 91.5 ml/min Est GFR ( Amer) 105.8 ml/min Est GFR (Non-Af Amer) 91.3 ml/min BUN/Creatinine Ratio 16.7 (10-20) Glucose 89 (70-99(Fasting)) mg/dl Calcium 8.9 (8.5-10.1) mg/dl Magnesium (1.7-2.4) mg/dl Total Bilirubin 0.6 (0.2-1.0) mg/dl AST 13 (13-39) U/L ALT 9 (7-52) U/L Alkaline Phosphatase 126 H (34-104) U/L Total Protein 7.1 (6.0-8.3) gm/dl Albumin 3.6 (3.4-5.0) gm/dl Globulin 3.5 (2.5-4.0) gm/dl Albumin/Globulin Ratio 1.0 (0.9-2) Diagnostic Findings KUB X-Ray 10/04/21 13:07 KUB CLINICAL HISTORY: Constipation. FINDINGS: 2 AP supine abdominal radiographs are compared to study dated 04/14/2021 and correlated with abdominal CT dated 07/01/2020. There is a nonobstructed abdominal bowel gas pattern comment with mild gaseous distention of the small bowel loops and colon. Fecal retention is noted in the rectosigmoid. No evidence of intraperitoneal free air is seen on these supine images. No abnormal abdominal calcifications identified. The skeletal structures are osteopenic appear intact. There is mild lumbosacral spondylosis. IMPRESSION: Rectosigmoid fecal retention with no radiographic evidence of high- grade bowel obstruction. Electronically signed by: Emlie Neal M.D. 10/04/2021 2:39 PM Abdomen/Pelvis CT 10/04/21 16:[address] WITHOUT CONTRAST CT DOSE: 1076.57 mGy.cm HISTORY: Acute urinary tract infection in a patient with history of kidney stones, hx stones, uti TECHNIQUE: Multiaxial CT images of the abdomen and pelvis were performed without contrast. A dose lowering technique was utilized adhering to the principles of ALARA. COMPARISON STUDY: CT abdomen and pelvis 07/01/2020. FINDINGS: Cardiomegaly with coronary artery calcifications. Small right pleural effusion. The study is limited secondary to respiratory motion artifact and upper extremity positioning. No pneumatosis or pneumoperitoneum. The unenhanced spleen, moderately atrophic pancreas and adrenal glands are unremarkable. The ga llbladder and liver are also within normal limits. Cortical scarring with parenchymal thinning of the left kidney. 1.7 cm exophytic cyst within the superior pole left kidney. There are least 4 nonobstructing calculi noted within the left kidney measuring up to 1.2 cm. Greater than 5 nonobstructing calculi of the right kidney measure up to 1.4 cm. 3 mm calculus of the proximal left ureter, image 176 without associated obstructive uropathy. There are several tiny calculi noted within the dependent urinary bladder. Partial distention of the bladder with mild wall thickening. Prostamegaly. Small fat-filled left inguinal hernia. Atherosclerosis of the aorta without aneurysm. No lymphadenopathy. Small duodenal diverticulum. No bowel obstruction. Moderate fecal retention of the rectosigmoid. Mild wall thickening of the inferior rectum with trace perirectal stranding. No ascites or mesenteric inflammation. Appendectomy. Gynecomastia. Degenerative changes of the spine, pelvis and hips. IMPRESSION: 1. 3 mm calculus of the proximal left ureter without obstructive uropathy. 2. Bilateral nonobstructing renal calculi with several small stones within the dependent urinary bladder. 3. Cortical scarring with parenchymal thinning of the left kidney. 4. No bowel obstruction. 5. Moderate fecal retention of the rectosigmoid with mild rectal wall thickening and trace perirectal stranding suggestive of a mild stercoral proctitis, improved from the 07/01/2020 exam. 6. Small right pleural effusion. ACT 112: Negative or not required by law. The above report was generated using voice recognition software. It may contain grammatical, syntax or spelling errors. Dictated: 10/04/2021 4:50 PM Transcribed: 10/04/2021 5:13 PM Jen [id number] [email or web address]_Aden Electronically signed by: Malick Vital M.D. 10/04/2021 5:39 PM PG Care Time/CCT Total # of Minutes Spent Total Time Spent with Patient: Total time spent is greater than 50% in coordination of care (as documented) at patient's floor/unit and/or counseling patient: Coding Level of Care Code 44365 Subseq Hosp Care Lvl 2 Diagnoses Weakness R53.1 Acute UTI N39.0 Dementia F03.90 Dementia behavioral disturbance: without behavioral disturbance Dementia type: unspecified type History of CVA (cerebrovascular accident) Z86.73 Seizure-like activity R56.9 Hypertension I10 Hypertension type: unspecified BARBARA (obstructive sleep apnea) G47.33 Atrial fibrillation with RVR I48.91 Constipation K59.00 (1) Dementia Dementia behavioral disturbance: without behavioral disturbance Dementia type: unspecified type Qualified Code(s): F03.90 - Unspecified dementia without behavioral disturbance (2) Hypertension Hypertension type: unspecified Qualified Code(s): I10 - Essential (primary) hypertension
[2021-10-05] MEDS: cephALEXin 500 MG CAP PO SCH ×2 (07:47→21:54)
[2021-10-05] MEDS: APIXABAN 5 MG TABLET PO SCH ×2 (07:47→21:54)
[2021-10-05] MEDS: MEMANTINE HCL 10 MG TAB PO SCH ×2 (07:47→21:55)
[2021-10-05] MEDS: RIVASTIGMINE TARTRATE 1.5 MG CAP PO SCH (07:48)
[2021-10-05] MEDS: NYSTATIN POWDER 15GM BTL EXT SCH ×4 (07:48→21:56)
[2021-10-05] MEDS: METOPROLOL TARTRATE 25 MG TAB PO SCH ×2 (07:48→21:55)
[2021-10-05] MEDS: dilTIAZem HCL 180 MG CAPCR PO SCH (07:48)
[2021-10-05] MEDS: ASPIRIN 81 MG ECTAB PO SCH (07:48)
[2021-10-05] MEDS: levETIRAcetam 500 MG in 0.9 % SODIUM CHLORIDE 100 ML IV SCH ×2 (07:48→21:57)
[2021-10-05] MEDS: POLYETHYLENE (MIRALAX) 17 GM PACK PO SCH (07:49)
[2021-10-05] MEDS: DOCUSATE SODIUM 100 MG CAP PO SCH ×2 (07:49→22:01)
[2021-10-05] MEDS: ACETAMINOPHEN 500 MG TAB PO SCH ×2 (07:50→22:01)
[2021-10-05 08:51] LABS: Hematocrit (blood only) 41.7 % (40.1-51.0); Hemoglobin 13.6 g/dl (14.0-18.0); Mean Corpuscular Hgb Conc 32.6 g/dL (32.0-36.0); Mean Corpuscular Volume 92.1 fL (80.0-100.0); Mean Platelet Volume 10.5 fL (9.4-12.4); Platelet Count 184 K/uL (130-400); RDW Coefficient of Variation 14.5 % (11.5-14.5); RDW Standard Deviation 48.8 fL (36.4-46.3); Red Blood Count 4.53 M/uL (4.63-6.08)
[2021-10-05 09:22] LABS: Albumin Level 3.5 gm/dl (3.4-5.0); BUN Creatinine Ratio 17.9 (10-20); Bilirubin,Total 0.6 mg/dl (0.2-1.0); Creatinine Clr Calc Pharmacy 98.4 ml/min; Est GFR (African American) 108.9 ml/min; Globulin 3.5 gm/dl (2.5-4.0); Potassium 3.6 mmol/L (3.5-5.1)
[2021-10-05] MEDS ORDERED: dilTIAZem HCL 30 MG TAB PO ONE (18:18)
[2021-10-05] MEDS: TAMSULOSIN HCL 0.4 MG CAP PO SCH (21:56)
--- NOTE | 2021-10-06 07:12 | Hospitalist Progress Note ---
Date of Service October 06, 2021 Assessment & Plan (1) Weakness: Plan: 76yo male presents with ongoing weakness, intermittent confusion. Was recently admitted to [facility] for seizure-like activity. Known dementia. ?progression of disease vs delirium state - contributing factors include recent hospitalization, possible UTI, medication changes He generally remains lethargic. Will answer questions with simple answers but not very interactive. noted he was like that over the past few weeks and noted he won't open his eyes much anymore when talking when it used to just be the R eye he wouldn't open. -> COVID on admit negative, consider repeat testing if needed. --> No SOB/hypoxia at current and 98% on RA UCx with MSSA --> Urine is DARKENED/sediment--> Dry on exam, 1L NSS ordered 10/03 (got additional 1L overnight and 500cc total for elevated HR) Cefepime transitioned to Keflex and will complete 5 day course after today NGTD on BCx suspicion low for endocarditis. Keppra level pending (new med, ?could be from this) --> discussed with Neurology and can f/u outpatient with level adjustment as needed with Dr Diaz but would be surpirsed if elevated given weight and should not hold up discharge MRI last admit with hydrocephalus, diffuse atrophy, microvascular ischemic changes. Poor imaging due to motion artifact. Of note, prior lung nodule Mar 2021, MRI was done WITHOUT contrast CTAP done overnight 10/04 for stating hx kidney stones. No obstructing stone but does have several scattered throughout. Measuring up to 1.4cm, could consider nidus for recurrent infections, however patient / not wanting to peruse invasive testing/treatment currently and will progress as below GALLERY MANAGER: gladys willingness to participate. . He was able to accept pudding, ice cream, and water today. Did not pocket food or spit it out but suspect he could likely do this time to time. Recommending to continue pureed, meds crushed in carrier, and alternate solids/liquids. If he pockets then stop the feeding session. Also recommending to focus on pleasure foods. Discussion with evening 10/02 and palliative consulted : [facility] Hospice can be arranged for . Updated Reema with plans to continue the keppra, continue med + ativan prn at discharge and will attempt to limit medications at discharge given swallowing issues. CM arranging. Of note, admit earlier this month, did have exposure to COVID per notes. Repeat COVID testing if warranted but per patient appears back to baseline for most part. Continued inpatient stay but planning for home with hospice tomorrow will convene with about medications to continue/discontinue at discharge adding ativan for concerns of seizure activity at home if unable to take the keppra in the future. (2) Acute UTI: Plan: Afebrile, HD stable, nontoxic in appearance. History of Pseudomonas UTI in the past, resistant to fluoroquinolones -Current cx with MSSA as discussed above. - Tx as above, complete course w/ keflex 10/05 (3) Dementia: Plan: Patient with dementia. ?progression of disease leading to present symptoms. Prior B12 level low and on replacement-- repeat w/o deficiency TSH wnl Frequent orientation -Monitor for oral pocketing -Aspiration precautions -Continue Namenda and Rivastigmine -- considering discontinuing these medications PT/OT/GALLERY MANAGER evaluation -Patient may benefit from home nursing - was working with PCP to try to get services vs hospice referral for additional help in the home. expresses a history of a bad experience at SNF so would like to avoid this --> Arranging for palliative at discharge on (4) History of CVA (cerebrovascular accident): Plan: Patient with persistent right sided deficit -Continue ASA (5) Seizure-like activity: Plan: Newly diagnosed. Negative workup during last admission. -Continue keppra 500mg po BID. --> will make IV BID for now while difficulty with PO while inpatient but patient improved ability to take pills with applesauce as UTI treated and can transition back to PO at discharge Obtain Keppra level -- pending and per lab wont be back until next week can f/u labs w/ neurology/adjustments but per discussion with Dr Del Valle no need to keep inpatient/further keppra levels (6) Hypertension: Plan: Chronic. Well controlled (7) BARBARA (obstructive sleep apnea): Plan: Chronic -CPAP qHS as tolerated (8) Atrial fibrillation with RVR: Plan: HR poorly controlled - might have to accept low teens as he seems unbothered. When he is at rest he can have pauses and HR in 40-60. Pauses < 4 sec but will continue to monitor. He did have addition IV Lopressor so may be contributing? Metoprolol decreased to 25mg BID -- new rx at d/c. No further pauses overnight 10/04-10-05 Avoiding placement of pacemaker given all of above (pause with IV lopressor) Continue diltiazem 180mg daily, Eliquis 5mg BID Check mag w/ AM labs, keep K ~4, Mag ~2 will order 1gm IV magnesium given HR elevated to 150-160s at highest, improved with IVF and then with pauses (pauses not new, had additional dose IV lopresser earlier in stay w/ pauses). KNown by cards Monitor on telemetry for now, hesitant to decrease metoprolol further given elevations in HR and will continue that dose for now (9) Constipation: Plan: issues at home on occassion prns ordered, but as discussed with , would like suppository for today ordered x 1 now Kub to check constipation, also eval if any stones (no CVA tenderness but hx dementia baseline but reports hx stones in the past) also with elevated ALP however appears has had chronic elevations of such (10) Acute metabolic encephalopathy: Plan: on admit, secondary to UTI tx as outlined at baseline, but with significant dementia palliative being arranged for dc Plan continued inpatient stay complete tx for UTI w/ Keflex (after tomorrows dosing) CM arranging for discharge on as would like to monitor after co mpetition of abx and worried about what hospice can/can't do Admission and Anticipated Discharge Date Admission Date: October 02, 2021 Results & Data Results & Data ([facility]) Vital Signs (Past 12 Hours) Vital Signs Temp Pulse Resp BP Pulse Ox O2 Del Method 10/05/21 23:15 36.5 C 61 19 139/74 96 Room Air 10/05/21 19:31 36.7 C 81 18 115/63 97 Room Air PG Care Time/CCT Total # of Minutes Spent Total Time Spent with Patient: Total time spent is greater than 50% in coordination of care (as documented) at patient's floor/unit and/or counseling patient: Coding Diagnoses Weakness R53.1 Acute UTI N39.0 Dementia F03.90 Dementia behavioral disturbance: without behavioral disturbance Dementia type: unspecified type History of CVA (cerebrovascular accident) Z86.73 Seizure-like activity R56.9 Hypertension I10 Hypertension type: unspecified BARBARA (obstructive sleep apnea) G47.33 Atrial fibrillation with RVR I48.91 Constipation K59.00 Acute metabolic encephalopathy G93.41 (1) Dementia Dementia behavioral disturbance: without behavioral disturbance Dementia type: unspecified type Qualified Code(s): F03.90 - Unspecified dementia without behavioral disturbance (2) Hypertension Hypertension type: unspecified Qualified Code(s): I10 - Essential (primary) hypertension
[2021-10-06 07:41] LABS: BUN Creatinine Ratio 19.7 (10-20); Calcium 9.2 mg/dl (8.5-10.1); Creatinine Clr Calc Pharmacy 99.9 ml/min; Est GFR (African American) 109.6 ml/min; Est GFR (Non-African American) 94.6 ml/min; Magnesium 1.9 mg/dl (1.7-2.4); Potassium 3.7 mmol/L (3.5-5.1)
[2021-10-06] MEDS: levETIRAcetam 500 MG in 0.9 % SODIUM CHLORIDE 100 ML IV SCH (08:00)
[2021-10-06] MEDS: ACETAMINOPHEN 500 MG TAB PO SCH (09:29)
[2021-10-06] MEDS: APIXABAN 5 MG TABLET PO SCH (09:29)
[2021-10-06] MEDS: dilTIAZem HCL 180 MG CAPCR PO SCH (09:29)
[2021-10-06] MEDS: DOCUSATE SODIUM 100 MG CAP PO SCH (09:29)
[2021-10-06] MEDS: ASPIRIN 81 MG ECTAB PO SCH (09:29)
[2021-10-06] MEDS: METOPROLOL TARTRATE 25 MG TAB PO SCH (09:30)
[2021-10-06] MEDS: NYSTATIN POWDER 15GM BTL EXT SCH (09:30)
[2021-10-06] MEDS: RIVASTIGMINE TARTRATE 1.5 MG CAP PO SCH (09:30)
[2021-10-06] MEDS: MEMANTINE HCL 10 MG TAB PO SCH (09:30)
[2021-10-06] MEDS: POLYETHYLENE (MIRALAX) 17 GM PACK PO SCH (09:30)
--- NOTE | 2021-10-06 10:36 | Discharge Summary ---
Date of Service October 06, 2021 Admission HPI Per Admitting Provider Vandana Krishnan is a 75yo male with history of prior CVA with residual right sided weakness, HTN, HLP, CAD, AF on anticoagulation and dementia presenting with cognitive decline, difficulty swallowing pills and possible UTI. Patient was recently admitted to [facility] from 09/24/21 - 09/28/21 with possible seizure activity, staring spells and myoclonic jerking. He was loaded with IV Keppra in the ER. He had a CT of the head revealing an old right posterior temporoparietal infarct, enlarged ventricles, no acute process. EEG performed with no seizure focus identified. He was evaluated by Neurology and was ultimately discharged home on Keppra 500mg po BID with instruction to followup with Neurology . Patient lives at home and is cared for by his . She reports that patient has continued to have a poor mental state over the last several weeks. Also with decreased oral intake, lethargy and occasional confusion. 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 He has bee n having some difficulty swallowing his pills and his states that he is holding his food in his cheeks. She has not felt comfortable giving him his medications for the last day because she was concerned that he would choke. He had some diarrhea yesterday and noted some blood tinged urine in his depends. Patient provides very little in the form of history. He denies chest pain, shortness of breath or abdominal pain. ER Course: NSS x 500mL, Cefepime 2gm Admission Exam Per Admitting Provider General: elderly demented patient resting comfortably, NAD, non-toxic in appearance, answers some questions and follows commands, calls out for Skin: warm, dry, intact, no rashes or lesions HEENT: NC/AT, PERRL, EOMI, anicteric sclera, conjunctiva without injection, external ear normal to inspection and nontender, nares patent, dry mucus membranes, dentition intact, no oropharyngeal lesions, neck supple, trachea midline, no LAD, no thyromegaly, no JVD Heart: +S1/S2, irregularly irregular, tachycardic, no m/r/g Lungs: equal air entry bilaterally, no rales/rhonchi/wheezes Abd: +BS, soft, NT/ND, no masses/organomegaly/ascites Ext: warm, 2+ pulses in UE/LE bilaterally, no clubbing/cyanosis or edema Principal Diagnosis UTI, AMS Discharge Exam General Appearance: Frail elderly male with baseline dementia, laying in bed, NAD, alert to person, not place/time/event, at bedside HEENT: head normocephalic, atraumatic, hearing intact, mmm moist, trachea midline without deviation Heart: RRR with no M/G/R, trace pedal edema, pulses palpable, cap refill wnl Lungs: CTAB, poor inspiratory effort at times, no audible wheezing/crackles, on room air 96% Abdomen: Soft, non-tender, non-distended; Positive BS x 4 quadrants Extremities: Neg cyanosis or edema Neurological: Speech clear but speaks minimally, at baseline, right sided weakness at baseline : condom cath with concentrated yellow urine in bag Psychiatric: alert to person/name, not time/events, improved eye contact and more conversive today, answering simple questions, wanting to go home to be with Skin: cool, dry Discharge Data Allergies Allergy/AdvReac Type Severity Reaction Status Date / Time isopropyl alcohol Allergy Severe RUBBING Verified 09/30/21 22:03 ALCOHOL - SHORTNESS OF BREATH adhesive Allergy Intermediate BLISTERS Verified 09/30/21 22:03 escitalopram Allergy Unknown UNSURE-DOES Verified 09/30/21 22:03 NOT KNOW oxycodone AdvReac Mild CONFUSION Verified 09/30/21 22:03 lisinopril AdvReac Unknown elevated Verified 09/30/21 22:03 creatinine Consultations 09/30/21 22:42 ED Decision to Admit Stat 09/30/21 22:56 ED Decision to Admit Stat 10/02/21 17:36 Consult Palliative Care Routine Ordered Studies Chest X-Ray 09/30/21 19:26 XR chest 1V portable CLINICAL HISTORY: weakness. Evaluate cardiopulmonary status COMPARISON STUDY: 09/18/2021 TECHNIQUE: 1 view of the chest FINDINGS: Single frontal view of the chest demonstrates the heart to again be enlarged. There is a decreased inspiratory effort with elevation of the hemidiaphragms and crowding of the bronchovascular markings at the lung bases and centrally. The lungs are clear of alveolar opacities. There is no evidence for pleural effusion. There is no evidence for vascular congestion. There is no acute osseous pathology. IMPRESSION: 1. There is a decreased inspiratory effort with otherwise no acute chest disease. ACT 112: Negative or not required by law. Electronically signed by: Benoit López M.D. 09/30/2021 8:[address] 10/02/21 17:51 CT head/brain wo con CLINICAL HISTORY: Acute change in mental status; ventriculomegaly COMPARISON STUDY: 09/24/2021 CT DOSE: 729.78 mGycm TECHNIQUE: Standard CT of the Brain was performed without IV contrast. A dose lowering technique was utilized adhering to the principles of ALARA. FINDINGS: Extraaxial space: There is no evidence for subdural hematoma. There are no extra-axial fluid collections. Ventricles and cisterns: The ventricles are again moderately to markedly dilated bilaterally. There is no evidence for midline shift or mass effect. Parenchyma: There is no subarachnoid or intraparenchymal hemorrhage. There is no evidence for an acute infarct or cerebral edema. There is mild cerebral cortical atrophy and decreased attenuation in the periventricular white matter representing remote small vessel disease. There are no gross mass lesions. Osseous structures: There is no evidence for an acute fracture. The visualized paranasal sinuses are clear. The mastoid air cells are clear bilaterally. Soft tissues: There is no evidence for focal soft tissue swelling. IMPRESSION: 1. No acute intracerebral pathology. 2. Cerebral cortical atrophy and extensive remote small vessel disease are again seen. ACT 112: Negative or not required by law. Electronically signed by: Benoit López M.D. 10/02/2021 6:36 PM KUB X-Ray 10/04/21 13:07 KUB CLINICAL HISTORY: Constipation. FINDINGS: 2 AP supine abdominal radiographs are compared to study dated 04/14/2021 and correlated with abdominal CT dated 07/01/2020. There is a nonobstructed abdominal bowel gas pattern comment with mild gaseous distention of the small bowel loops and colon. Fecal retention is noted in the rectosigmoid. No evidence of intraperitoneal free air is seen on these supine images. No abnormal abdominal calcifications identified. The skeletal structures are osteopenic appear intact. There is mild lumbosacral spondylosis. IMPRESSION: Rectosigmoid fecal retention with no radiographic evidence of high- grade bowel obstruction. Electronically signed by: Emile Neal M.D. 10/04/2021 2:39 PM Abdomen/Pelvis CT 10/04/21 16:[address] WITHOUT CONTRAST CT DOSE: 1076.57 mGy.cm HISTORY: Acute urinary tract infection in a patient with history of kidney stones, hx stones, uti TECHNIQUE: Multiaxial CT images of the abdomen and pelvis were performed without contrast. A dose lowering technique was utilized adhering to the principles of ALARA. COMPARISON STUDY: CT abdomen and pelvis 07/01/2020. FINDINGS: Cardiomegaly with coronary artery calcifications. Small right pleural effusion. The study is limited secondary to respiratory motion artifact and upper extremity positioning. No pneumatosis or pneumoperitoneum. The unenhanced spleen, moderately atrophic pancreas and adrenal glands are unremarkable. The gallbladder and liver are also within normal limits. Cortical scarring with parenchymal thinning of the left kidney. 1.7 cm exophytic cyst within the superior pole left kidney. There are least 4 nonobstructing calculi noted within the left kidney measuring up to 1.2 cm. Greater than 5 nonobstructing calculi of the right kidney measure up to 1.4 cm. 3 mm calculus of the proximal left ureter, image 176 without associated obstructive uropathy. There are several tiny calculi noted within the dependent urinary bladder. Partial distention of the bladder with mild wall thickening. Prostamegaly. Small fat-filled left inguinal hernia. Atherosclerosis of the aorta without aneurysm. No lymphadenopathy. Small duodenal diverticulum. No bowel obstruction. Moderate fecal retention of the rectosigmoid. Mild wall thickening of the inferior rectum with trace perirectal stranding. No ascites or mesenteric inflammation. Appendectomy. Gynecomastia. Degenerative changes of the spine, pelvis and hips. IMPRESSION: 1. 3 mm calculus of the proximal left ureter without obstructive uropathy. 2. Bilateral nonobstructing renal calculi with several small stones within the dependent urinary bladder. 3. Cortical scarring with parenchymal thinning of the left kidney. 4. No bowel obstruction. 5. Moderate fecal retention of the rectosigmoid with mild rectal wall thickening and trace perirectal stranding suggestive of a mild stercoral proctitis, improved from the 07/01/2020 exam. 6. Small right pleural effusion. ACT 112: Negative or not required by law. The above report was generated using voice recognition software. It may contain grammatical, syntax or spelling errors. Dictated: 10/04/2021 4:50 PM Transcribed: 10/04/2021 5:13 PM Jen [id number] ASAD_Aden Electronically signed by: Malick Vital M.D. 10/04/2021 5:39 PM Hospital Course (1) Weakness: 76yo male presents with ongoing weakness, intermittent confusion. Was recently admitted to [facility] for seizure-like activity. Known dementia. ?progression of disease vs delirium state - contributing factors include recent hospitalization, possible UTI, medication changes He generally remains lethargic. Will answer questions with simple answers but not very interactive. noted he was like that over the past few weeks and noted he won't open his eyes much anymore when talking when it used to just be the R eye he wouldn't open. -> COVID on admit negative, consider repeat testing if needed given did have exposure by a roommate last admission apparently. No fever/cough/hypoxia and remained >94% on RA throughout stay Urine cx staph aureus, MSSA , however nitrites on imaging and more likely klebsiella/ecoli Completed course w/ IV abx, converted to keflex while inpatient Blood cultures NEGATIVE Keppra level sent -- recent start for possible seizure activity last admit (of note, also with lung nodules earlier in year, no brain MRI with contrast and patient unable to tolerate) however discussed with Neurology inpatient and given age/weight and lower dose without active seizure activity (and reported back to baseline while continuing and tx of UTI) would continue and can have f/u with level with Dr Diaz via phone outpatient but would continue this MRI last admit with hydrocephalus, diffuse atrophy, microvascular ischemic changes. Poor imaging due to motion artifact. Of note, prior lung nodule Apr 10, MRI was done WITHOUT contrast Swallowing issues -- worse than previous, ?seizure, ?underlying brain lesion given pulmonary nodules noted to earlier in year Patient eating when he wants to, progressive dementia. Can pocket foods and pills from time to time and recommended pureed and using carrier likel applesauce or pudding for pills Hx kidney stones, on flomax. CTAP done overnight 10/04 for stating hx kidney stones to look for any obstructions --> No obstructing stone but does have several scattered throughout. Measuring up to 1.4cm, could consider nidus for recurrent infections given larger stone, however patient stated he did not want aggressive treatment and patient agreed wouldn't want to put Vandana through further testing and that she has noticed a decline over the past several months with repeated hospitalizations. We also discussed darkened urine after stopping IVF as patient not with much appetite (did have large BMs, continue supp at d/c) and suspect progressive dementia. Discussed would only be temporary measure and I do suspect patient may have improvement in PO intake at home in home environment, however I did discuss with that if vandana continues with lack of PO intake due to progression that the end may be sooner than later. She did have a hard time dealing with making these decisions and reassurance was provided. Would benefit from additional services and support with hospice at discharge as discussed in days past by palliaitve medicine and did sent rx for ativan prn for seizure activity as she is very worried about being traumatized from this at home Hospice to meet for face to face this afternoon, arranged by CM Of note, patient did have episodes of elevated HR, treated with IV lopressor and subsequent pauses throughout hospitalization. Prior decision not to pursue pacemaker placement given asymptomatic. Avoided further IV lopressor. Did decrease metoprolol to 25mg BID with decreased amounts of pauses, however elevations in HR and BP with resolution in pauses and decision to continue usual BB at discharge along with his eliquis was made (2) Acute UTI: Afebrile, HD stable, nontoxic in appearance. History of Pseudomonas UTI in the past, resistant to fluoroquinolones Urine cx with MSSA, completed treatment while inpatient -Current cx with MSSA as discussed above. - Tx as above, completed course w/ keflex 10/05 (3) Dementia: Patient with dementia. ?progression of disease leading to present symptoms. 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 Negative workup during last admission. -Continued keppra BID, did make IV while inpatient to avoid extra pills Obtain Keppra level -- pending and per lab wont be back until next week can f/u labs w/ neurology/adjustments but per discussion with Dr Del Valle no need to keep inpatient/further keppra levels (6) Hypertension: Chronic, controlled (7) BARBARA (obstructive sleep apnea): Chronic -CPAP qHS as tolerated (8) Atrial fibrillation with RVR: HR poorly controlled - might have to accept low teens as he seems unbothered. When he is at rest he can have pauses and HR in 40-60. Pauses < 4 sec but will continue to monitor. He did have addition IV Lopressor so may be contributing? Metoprolol decreased to 25mg BID due to pauses, avoiding placement of pacemaker given all of the above given elevations (cardizem 30mg x 1 evening 10/05) and no further pauses and was asymptomatic with such, continued 50mg BID at discaharge to prevent elevations of such Continued diltiazem 180mg daily, Eliquis 5mg BID Mag/K wnl (9) Constipation: issues at home on occasion suppository administered, 2 large BMs No abdominal pain, eating when he wants to /comfort continue bowel regimen at home for comfort as needed (10) Acute metabolic encephalopathy: on admit, secondary to UTI tx as outlined at baseline, but with significant dementia palliative being arranged for dc Total Time Total Time Spent Total Time Spent (In Minutes): 75 Discharge Plan Discharge Items Patient Disposition: Hospice - Home Reason For Visit: WEAKNESS, UTI Discharge Diagnosis: UTI Condition on Discharge: Good Goals: You have been hospitalized for an acute medical problem. During your stay at [facility], we have made an effort to correct the problem that brought you to the hospital while keeping you as comfortable as possible. Medications were used to bring your condition under control and your discharge instructions will include directions for any medications you should take after leaving the hospital. Please make sure you see your Primary Care Provider as part of your follow up plan. Activity: As commented below Non-emergency contact: Primary Care Provider Call non-emergency contact if: you have any medication questions Follow-up/Referrals: Fritz Campos, [Primary Care Provider] - Diet: Heart Healthy Addtl Attending Provider Instructions: You have been hospitalized for UTI. You have received treatment for this while in the hospital and have no more antibiotics. Imaging of the head did not indicate any stroke. Given repeat hospitalizations and progressive dementia palliative medicine has been consulted and decision has been made after talking with Vandana as well that he does not want any invasive testing or procedures and would rather focus on comfort at home surrounded by family. Case management has arranged for home health/hospice at discharge. We have continued some medications and discontinued others. As discussed, keppra level was sent out but will not be back until next week. Dr Diaz can be contacted next week for follow up of that lab but I spoke with Dr Del Valle (his partner) and he stated to continue this medication and unlikely the lab will be elevated given smaller dose and your weight. You have been continued on Keppra, and I have sent Ativan to be used as needed for any evidence for breakthrough seizure. It has been a pleasure being a part of the medical team providing for you while in the hospital and I wish you the best. Take care! Pending Studies at Discharge: No Stand-Alone Forms: My [facility] Medications and DC Order Prescriptions: New lorazepam 0.5 mg tablet 0.5 mg sublingual BID PRN (Reason: anxiety) Qty: 10 0RF Continued aspirin [Pieter Low Dose Aspirin] 81 mg tablet,delayed release (DR/EC) 81 mg PO QAM Qty: 90 3RF tamsulosin [Flomax] 0.4 mg capsule 0.4 mg PO HS Qty: 90 3RF nitroglycerin 0.4 mg tablet, sublingual 0.4 mg SL Q5M PRN (Reason: chest pain) Qty: 25 0RF Rx Instructions: For chest pain place one tablet under tongue every 5 mins. diltiazem HCl 180 mg capsule,extended release 24hr 180 mg PO QAM Qty: 90 3RF Eliquis 5 mg tablet 5 mg PO BID Qty: 180 3RF (DME) Mattress (Air or other) Misc See Rx Instructions .Route Qty: 1 0RF Rx Instructions: As directed-length of need-99 months, DX: I63.9 clotrimazole 1 % cream 1 applic topical BID PRN (Reason: Skin Irritation) nystatin 100,000 unit/gram powder 1 applic topical QID Qty: 60 5RF acetaminophen [Tylenol Extra Strength] 500 mg tablet 1,000 mg PO BID Qty: 120 5RF polyethylene glycol 3350 [Miralax] 17 gram/dose powder 17 g PO QAM levetiracetam [Keppra] 500 mg Tablet 500 mg PO BID Qty: 60 0RF metoprolol tartrate 50 mg Tablet 50 mg PO BID Qty: 60 0RF bisacodyl [Dulcolax (bisacodyl)] 10 mg Suppository 10 mg [place] DAILY PRN (Reason: Constipation) docusate sodium [Colace] 100 mg Capsule 100 mg PO BID diclofenac sodium [Voltaren Arthritis Pain] 1 % Gel 4 g EXT QID PRN (Reason: pain) Qty: 100 0RF Discontinued cyanocobalamin (vitamin B-12) 1,000 mcg capsule 1,000 mcg PO DAILY Qty: 30 5RF rivastigmine tartrate 3 mg capsule 3 mg PO QAM d-mannose 500 mg capsule 1,000 mg PO QAM memantine [Namenda] 10 mg tablet 10 mg PO BID Qty: 180 4RF cholecalciferol (vitamin D3) [Vitamin D3] 1,000 unit Capsule 1,000 unit PO HS coenzyme Q10 [CoQ-10] 100 mg Capsule 100 mg PO BID Discharge Orders: Discharge Order (Routine); Ordered 10/06/21 Ordered By: Katherin So Admission Data Admit Date/Time: 10/02/21 17:34 Attending Provider: Jez Tucker Admit Provider: Geni Razo Primary Care Provider: Fritz Campos Other Providers: Geni Razo ; Yaz Jackson Other Interventions: Discharge Summary Assessment (RN) Last Done: 10/06/21 10:54 Supervising Physician Co-Signing Physician Notes Attending Attestation and Discharge Note - Chart reviewed in detail, discharge care plan d/w PA Katherin So. I agree w/ the jang components of her discharge documentation. 76yo male with severe, end-stage dementia who presented with ongoing weakness & altered mental status. This was in the setting of recent hospital stay for seizure-like activity which led to institution of keppra therapy. Urine culture this admission with UTI. Despite Rx of UTI patient never had significant improvement on a global basis. Goals of care discussions were held with pt's , and ultimately patient d/c to home with his [facility]. On day of discharge I went to pt's room to perform a physical exam but patient had already been discharged. Thus, discharge exam NOT performed by myself. Jez Tucker MD Coding Level of Care Code D/C DAY MANAGEMENT >30 MINS Diagnoses Weakness R53.1 Acute UTI N39.0 Dementia F03.90 Dementia behavioral disturbance: without behavioral disturbance Dementia type: unspecified type History of CVA (cerebrovascular accident) Z86.73 Seizure-like activity R56.9 Hypertension I10 Hypertension type: unspecified BARBARA (obstructive sleep apnea) G47.33 Atrial fibrillation with RVR I48.91 Constipation K59.00 Acute metabolic encephalopathy G93.41
== END 2021-10-06 12:00 | disposition hospice, home (50) | DRG 689 ==
LOC: 3W 19:16 → ED 19:16 → SUATTDRO 23:21 → 3W 10-01 00:15 → 2W 10-01 03:16 → SUATTDRO 10-02 17:34
DX: R63.0 Anorexia; Z88.5 Allergy status to narcotic agent; I69.351 Hemiplegia and hemiparesis following cerebral infarction affecting right dominant side; R13.10 Dysphagia, unspecified; R41.82 Altered mental status, unspecified; I50.9 Heart failure, unspecified; Z82.3 Family history of stroke; G91.9 Hydrocephalus, unspecified; B95.61 Methicillin susceptible Staphylococcus aureus infection as the cause of diseases classified elsewhere; Z66 Do not resuscitate; N39.0 Urinary tract infection, site not specified; K59.00 Constipation, unspecified; I11.0 Hypertensive heart disease with heart failure; B96.20 Unspecified Escherichia coli [E. coli] as the cause of diseases classified elsewhere; Z79.01 Long term (current) use of anticoagulants; F03.90 Unspecified dementia, unspecified severity, without behavioral disturbance, psychotic disturbance, mood disturbance, and anxiety; G93.41 Metabolic encephalopathy; Z51.5 Encounter for palliative care; I25.10 Atherosclerotic heart disease of native coronary artery without angina pectoris; I48.21 Permanent atrial fibrillation; G47.33 Obstructive sleep apnea (adult) (pediatric)